=== PATIENT | male | born 1960 | race Caucasian/White ===

== ENCOUNTER 2023-11-24 09:56 | Outpatient (AMB) | payer MEDICARE, MEDICAID, SELFPAY ==
--- NOTE | 2023-11-24 10:06 | MHC.PC.OV ---
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 Allergies No Known Allergies Allergy (Verified 11/24/23 10:17) Medication List - Last Reconciled 11/24/23 by Joao Stanford MD clopidogrel 75 mg PO DAILY dapagliflozin propanediol (Farxiga) 10 mg PO DAILY flash glucose sensor (FreeStyle Dori 2 Sensor kit) As directed insulin degludec (Tresiba FlexTouch U-100 insulin) 26 units subcut BID lidocaine 1.8% (ZTlido) 1 patch topical DAILY metoprolol succinate ER 25 mg PO DAILY metoprolol succinate ER 100 mg PO BID omeprazole 40 mg PO DAILY pen needle, diabetic (NovoFine Plus) As directed rosuvastatin 40 mg PO DAILY sacubitril-valsartan 24-26 mg (Entresto) 1 tab PO BID semaglutide (Rybelsus) 14 mg PO DAILY trazodone 100 mg PO DAILY Tobacco use date assessed: 11/24/23 Fall risk assessment: 1 Fall in past year Last assessed Fall Risk: 11/24/23 Dental Screening Dental Screen Date: 11/24/23 Did you have a dental visit in the last 12 months?: Yes Did you have a dental problem in the last 6 months where you did not have access to dental care?: No Was dental information given to patient?: 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 Pt moved back here in December. Last office visit/CPE: 1 yr ago Acute issue(s): Stroke 1 week ago and has appt w/ Neuro in December. High A1c and had been eating poor diet. PMHx:??Diabetes type 2 Dr Christian. ?hyperlipidemia? CVA 2011, 11/2023 with R side deficits. Carotid athersclerosis., Low Iron anemia. Hiatal Hernia SurgHx: Appendectomy. L ankle ORIF. L Foot surgery and amputation L great toe as well as 3rd & 4th toe. FHx: SocHx: Smoked > 20 pack years. and still [address] a week. 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 Stroke Diabetes 1.5, managed as type 2 Surgical History (Updated 11/24/23 @ 10:26 by Lucy Neville CMA) History of appendectomy Social History (Updated 11/24/23 @ 10:31 by Lucy Neville CMA) Household Members: None Both parents involved: No Caregiver staying overnight: No Housing: Apartment Are you a primary rn managed care to a significant other at home: No Do you presently have visiting nurse or other home services: No 75 years or older and lives alone: No Alcohol intake: current Alcohol intake frequency: a few times a month Alcohol type: other Comment: single malt scotch Patient Tobacco Use Status: Current everyday Tobacco user Cigarette Packs Per Day: 20 e-Cigarette/Vaping Use: Never Used Substance Use Type: Marijuana Special yamilex needs: No service: No Current occupational status: retired Cognitive needs: No Hearing needs: No Vision needs: No Questionnaire PHQ-9 Over the last 2 weeks, how often have you been bothered by any of the following problems? 1. Little interest or pleasure in doing things: not at all 2. Feeling down, depressed, or hopeless: not at all 3. Trouble falling or staying asleep, or sleeping too much: not at all 4. Feeling tired or having little energy: not at all 5. Poor appetite or overeating: not at all 6. Feeling bad about yourself - or that you are a failure or have let yourself or your family down: not at all 7. Trouble concentrating on things, such as reading the newspaper or watching television: not at all 8. Moving or speaking so slowly that other people could have noticed. Or the opposite - being so fidgety or restless that you have been moving around a lot more than usual: not at all 9. Thoughts that you would be better off or of hurting yourself in some way: not at all Total score: 0 Depression Screening Interpretation: Negative Depression Screening Done: Yes 26867 - PHQ-9 Billing: Yes Source: Developed by Drs. Mega Teresa, Berenice Hardin, Rory Hewitt and colleagues, with an educational claudine from [employer]. Thrive Questionnaire Date Thrive assessed: 11/24/23 I am a: Patient What is your living situation today?: I have a steady place to live Within the past 12 months, did the food you bought not last and you didn't have the money to get more?: Never true Within the past 12 months, did you worry whether your food would run out before you got money to buy more?: Never true Do you have trouble paying for medicines?: No Do you have trouble getting transportation to medical appointments?: No Do you have trouble paying your heating and electricity bill?: Yes Do you have trouble taking care of your child, family member or friend?: No Do you have trouble with day-to-day activities such as bathing, preparing meals, shopping, managing finances, etc.?: No Are you currently unemployed and looking for a job?: No Are you interested in more education?: Yes THRIVE Score: 1 BELTRAN-7 AMB Questionnaire BELTRAN-7 Date BELTRAN - 7 assessed: 11/24/23 Feeling nervous, anxious, or on edge: 0 = Not at all Not being able to stop or control worryin = Not at all Worrying too much about different things: 0 = Not at all Trouble relaxin = Not at all Being so restless that it is hard to sit still: 0 = Not at all Becoming easily annoyed or irritable: 0 = Not at all Feeling afraid as if something awful might happen: 0 = Not at all Total BELTRAN-7 score (0-4 normal; 5-9 mild; 10-14 moderate; 15-21 severe): 0 Source: Developed by Drs. Mega Teresa, Berenice Hardin, Rory Hewitt and colleagues, with an educational claudine from [employer]. BELTRAN-7 Assessment Billing BELTRAN-7 Assessment Tool: BELTRAN-7 Assessment 76550 Review of Systems Const Denies chills, Denies fatigue, Denies fever(s), Denies headache(s) and Denies weakness ENT Denies dizziness and Denies headache(s) Card Denies chest pain, Denies lightheadedness, Denies dyspnea and Denies other (Palpitations) Resp Denies cough, Denies dyspnea, Denies wheezing and Denies other ( shortness of breath) Musc Denies numbness and Denies tingling Neuro Denies dizziness, Denies headache(s), Denies numbness, Denies tingling, Denies paresthesias and Denies weakness Psych Denies anxiety and Denies depression Endo Denies fatigue Aller/Immun Denies wheezing Physical exam (Primary Care) Vital Signs: Last Vital Signs Pulse 80 11/24/23 10:08 BP 102/58 L 11/24/23 10:08 Pulse Ox 98 11/24/23 10:08 Oxygen Delivery Method Room Air 11/24/23 10:08 BMI result Body Mass Index 27.0 Tobacco/Smoking Status: Tobacco use Status Tobacco use date assessed 11/24/23 11/24/23 10:35 Patient Tobacco Use Status Current everyday Tobacco 11/24/23 10:35 e-Cigarette/Vaping Use Never Used 11/24/23 10:35 PHQ-9: PHQ-9 Score PHQ-9: Total score 0 11/24/23 10:35 Depression Screening Interpretation: Negative Thrive Assessment: Date of Thrive Assessment Date Thrive assessed 11/24/23 11/24/23 10:35 Const General: no acute distress and well developed Nutritional Appearance: well nourished Orientation/consciousness: patient oriented x3 [facility] Head: Yes normocephalic and Yes atraumatic Eyes General: appearance normal, both eyes and all related structures Pupils: Equal, round and reactive pupils present EOM: EOMs intact bilaterally Resp Effort & Inspection: normal respiratory effort Auscultation: clear to auscultation bilaterally Cardio Rate: regular rate Rhythm: regular rhythm Heart sounds: S1 normal heart sound present, S2 normal heart sound present, no gallops, no murmurs and no rubs Neuro General: patient oriented x3 and gait normal Cranial nerves: Yes Equal, round and reactive pupils present Psych Affect: normal affect Results AMB Hemoglobin A1c AMB Hemoglobin A1c 7.8 % Last Edit by Lucy Neville CMA on 11/24/23 10:48 Assessment and Plan Assessment & Plan (1) Diabetes: Code(s): E11.9 - Type 2 diabetes mellitus without complications Plan: A1c?7.8%?which?is?poor?control.??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 Patient?notes?that?his?morning?blood?sugars?are?low eg 70s. However?blood?sugars?go?up?over?200?for?his?lunch?and?evening?meals. Will?give?him?a?script?for?glipizide?prior?to?his?lunch?and?encouraged?him?to?work?on?diabetic?diet. Otherwise,?Continue?diabetic?medications?as?prescribed Follow-up?with?endocrinology (2) Hypertension: Code(s): I10 - Essential (primary) hypertension Plan: Blood?pressure?is?a?little?on?the?low?side?but?he?has?no?adverse?effects. Continue?current?medications. Recent?CVA Follow-up?with?Neurology?as?recommended (3) Hyperlipidemia: Code(s): E78.5 - Hyperlipidemia, unspecified Plan: Continue?rosuvastatin (4) Smoker: Code(s): F17.200 - Nicotine dependence, unspecified, uncomplicated Plan: Start?nicotine?patches Will?follow (5) Stroke: Code(s): I63.9 - Cerebral infarction, unspecified Plan: History?of?stroke?in?2011?and?a?smaller?stroke?1?week?ago. He?has?an?appointment?with?neurology?in?December Continue?clopidogrel?and?aspirin.??Continue?Entresto?and?metoprolol.??Control?blood?pressure Controlled?blood?sugar Continue?rosuvastatin (6) Carotid atherosclerosis: Code(s): I65.29 - Occlusion and stenosis of unspecified carotid artery Plan: Continue?rosuvastatin Follow-up?with?Neurology May?need?a?referral?to?vascular Orders: Orders AMB Hemoglobin A1c Today Z13.9 - Encounter for screening, unspecified Complete Blood Count Auto Diff Today Z00.00 - Encounter for general adult medical examination without abnormal findings Lipid Panel Today Z00.00 - Encounter for general adult medical examination without abnormal findings Microalbumin, Random (w Creat) Today I10 - Essential (primary) hypertension TSH reflex Free T4 Today Z00.00 - Encounter for general adult medical examination without abnormal findings IRON PROFILE Today D64.9 - Anemia, unspecified Comprehensive [place]. Panel Fast Today Z00.00 - Encounter for general adult medical examination without abnormal findings UA and rflx microscopic Today Z00.00 - Encounter for general adult medical examination without abnormal findings Testosterone, Free/Total Today R79.89 - Other specified abnormal findings of blood chemistry Medications: New nicotine (Nicoderm CQ) 1 patch transdermal DAILY 28 days 28 ea 2RF insulin degludec (Tresiba FlexTouch U-100 insulin) 26 units subcut DAILY glipizide Take 15 min before lunch 2.5 mg PO DAILY 30 days 30 tabs 1RF Coding Level of Care Code New Pt Level 4 (85748) Diagnoses Diabetes E11.9 Hypertension I10 Hyperlipidemia E78.5 Smoker F17.200 Stroke I63.9 Carotid atherosclerosis I65.29 Additional Codes BELTRAN-7 Assessment Billing - BELTRAN-7 Assessment Tool: BELTRAN-7 Assessment [id number] ([id number])
[2023-11-24 10:08] VITALS: BP 102/58; PULSE 80; O2SAT 98; BMI 27.0
== END 2023-11-24 12:44 | disposition home or self-care (01) ==
PROVIDERS: PCP Family Medicine; Visit Provider Family Medicine
DX: I10 Essential (primary) hypertension (principal); E78.5 Hyperlipidemia, unspecified; F17.210 Nicotine dependence, cigarettes, uncomplicated; E11.9 Type 2 diabetes mellitus without complications; I65.29 Occlusion and stenosis of unspecified carotid artery; Z86.73 Personal history of transient ischemic attack (TIA), and cerebral infarction without residual deficits
CPT/HCPCS: 83036; 99204

== ENCOUNTER 2023-12-08 07:20 | Outpatient (REF) | payer MEDICARE, MEDICAID, SELFPAY ==
[2023-12-08 11:27] LABS: Appearance Urine Clear; Color Urine Yellow; Glucose Urine UA >=1000 mg/dL (Negative); Leukocyte Esterase Urine Negative (Negative); Nitrite Urine Negative (Negative); Specific Gravity - Urine 1.025 (1.005-1.025); UMIC TRIGGER UA YES; Urine Blood Negative (Negative); Urine Ketones Negative (Negative); Urine Protein Negative (Neg-Trace)
[2023-12-08 11:46] LABS: MANUAL DIFF FLAG NO
[2023-12-08 11:48] LABS: Bacteria Urine None Seen (None Seen); Hyaline Casts Urine 0-2 /LPF (0-2); RBC Urine 0-2 /HPF (0-2); Squamous Epithelial Cell Urine 0-2 /HPF (0-2); WBC Urine 0-5 /HPF (0-5)
[2023-12-08 11:50] LABS: Basophils Absolute Auto 0.1 X10*3/uL (0.0-0.2); Eosinophils Absolute Auto 0.8 X10*3/uL (0.0-0.4); Eosinophils Percent Auto 8.2 % (0-4); Hematocrit 44.7 % (42.0-52.0); Hemoglobin 14.5 g/dl (14.0-18.0); Imm Gran Abs Auto 0.04 X10*3/uL (0.00-0.03); Imm Gran Pct Auto 0.4 % (0.0-0.4); Lymphocytes Absolute Auto 2.5 X10*3/uL (1.2-4.9); Lymphocytes Percent Auto 25.6 % (20-40); Mean Corpuscular HGB Conc 32.4 g/dl (31.0-36.0); Mean Corpuscular Hemoglobin 27.4 pg (27.0-33.0); Mean Corpuscular Volume 84.5 fL (80.0-98.0); Mean Platelet Volume 11.1 fL (9.4-12.4); Monocytes Percent Auto 10.1 % (2-11); Neutrophils Absolute Auto 5.3 x10*3/uL (2.0-8.3); Neutrophils Percent Auto 54.7 % (45-73); Platelet Count 411 X10*3/uL (160-400); Red Blood Count 5.29 X10*6/uL (4.60-5.80); Red Cell Distribution Width 15.3 % (11.0-16.0); White Blood Count 9.8 X10*3/uL (4.8-10.8)
[2023-12-08 12:35] LABS: Creatinine Urine 62.79 mg/dL; Microalbum/Creatinine Ratio Ur 28.6 ug/mg cr (<30)
[2023-12-08 12:48] LABS: Alanine Aminotransferase 34 U/L (0-40); Alkaline Phosphatase 58 U/L (39-117); Anion Gap 13 (12-20); Aspartate Amino Transferase 27 U/L (5-37); Bilirubin Total 0.2 mg/dL (0.0-1.0); Blood Urea Nitrogen 24 mg/dL (9-16); Calcium 9.6 mg/dL (8.4-10.2); Carbon Dioxide 25 mmol/L (22-29); Chloride 109 mmol/L (96-108); Cholesterol 124 mg/dL (<200); Estimated Glomerular Filt Rate 55; Glucose Fasting 111 mg/dL (60-99); HDL Cholesterol 33 mg/dL (>40); Iron 49 mcg/dL (45-160); LDL Cholesterol Calculated 57 mg/dL (<100); Percent Iron Saturation 23 % (15-50); Potassium 4.1 mmol/L (3.3-5.1); Sodium 143 mmol/L (135-145); Total Iron Binding Capacity 210 mcg/dL (228-428); Total Protein 7.1 g/dL (6.5-8.0); Triglycerides 171 mg/dL (<150); Unsaturated Iron Binding 161 ug/dL
[2023-12-08 13:07] LABS: TSH reflex Free T4 1.21 uIU/mL (0.32-4.0)
[2023-12-13 21:14] LABS: Testosterone, Free 74.7 pg/mL (35.0-155.0); Testosterone, Total 593 ng/dL (250-1100)
== END 2023-12-08 07:21 | disposition home or self-care (01) ==
LOC: HO.WFDLDS 07:20
PROVIDERS: Visit Provider Family Medicine
DX: Z00.00 Encounter for general adult medical examination without abnormal findings (principal); I10 Essential (primary) hypertension; D64.9 Anemia, unspecified; R79.89 Other specified abnormal findings of blood chemistry
CPT/HCPCS: 36415; 80053; 80061; 81001; 82043; 82570; 83540; 84402; 84403; 84443; 85025

== ENCOUNTER 2024-02-07 07:51 | Outpatient (AMB) | payer MEDICARE, MEDICAID, SELFPAY ==
--- NOTE | 2024-02-07 08:00 | A.OFFPC_ITS ---
Vital Signs 02/07/24 08:09 Height 5 ft 9.75 in Weight 187 lb BMI 27.0 BP 124/58 L Blood Pressure Location Lt brachial Position Sitting Respiration 16 Pulse 68 Pulse Source Pulse Oximeter Temp 97.5 F Temp Source Oral Pulse Oximetry (%) 99 Oxygen Delivery Method Room Air Intake Visit Reasons: CPE with F/U labs and health maint. Intake Note: patient here for CPE with F/u labs and health maintnance. 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 Allergies No Known Allergies Allergy (Verified 02/07/24 08:19) Medication List - Last Reconciled 02/07/24 by Rakesh Davies CNP clopidogrel 75 mg PO DAILY 90 days dapagliflozin propanediol (Farxiga) 10 mg PO DAILY 90 days flash glucose sensor (FreeStyle Dori 2 Sensor kit) As directed glipizide 2.5 mg (1/2 x 5 mg) PO DAILY 30 days insulin degludec (Tresiba FlexTouch U-100 insulin) 26 units subcut DAILY lidocaine 1.8% (ZTlido) 1 patch topical DAILY 30 days metoprolol succinate ER 25 mg PO DAILY 90 days metoprolol succinate ER 100 mg PO BID nicotine (Nicoderm CQ) 1 patch transdermal DAILY 28 days omeprazole 40 mg PO DAILY 90 days pen needle, diabetic (NovoFine Plus) As directed rosuvastatin 40 mg PO DAILY 90 days sacubitril-valsartan 24-26 mg (Entresto) 1 tab PO BID 90 days semaglutide (Rybelsus) 14 mg PO DAILY 90 days tizanidine 4 mg PO BEDTIME PRN 30 days trazodone 100 mg PO DAILY 30 days Tobacco use date assessed: 02/07/24 Fall risk assessment: No Falls in past year Dental Screening Dental Screen Date: 02/07/24 Did you have a dental visit in the last 12 months?: Yes Did you have a dental problem in the last 6 months where you did not have access to dental care?: No Was dental information given to patient?: Patient has dentist HPI HPI Comments History of Present Illness Details 63-year-old male presents for an extende d physical exam He has past medical history significant for ?Diabetes type 2, hyperlipidemia, CVA 2011, 11/2023 with R side deficits, carotid atherosclerosis, low Iron anemia, hiatal hernia, hypertension, insomnia and GERD He notes that he has been using nicotine patch occasionally. He continues to smoke a pack of cigarette daily. He admits to taking his other medications as prescribed without adverse reactions He notes that he has been eating healthy and sleeping well. He admits to eating significant amount of meat, cheese, and consuming whole milk. He has not been exercising but plan to sign up at the gym to start working out He offers no complaints and denies acute symptoms at this time He notes that his last eye exam was with Dr. Mitchell in August 2023: No retinopathy He notes that her last podiatry visit was in November 2023 He states that his last endocrinology visit was in December 2023. He as a follow visit in March He notes that his last colonoscopy was 2 years ago, in [place]: no polyps or malignancy He has not been vaccinated for shingles or pneumonia Smoke a pack of cigarettes daily, drinks alcohol occasionally, no recreational drug use He followed by Dr. Mitchell, Ophthalmology, Dr. Meredith, podiatry, and Dr. 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 Pacemaker Stroke Diabetes 1.5, managed as type 2 Surgical History (Updated 11/24/23 @ 10:26 by Lucy Neville CMA) History of appendectomy Social History (Updated 11/25/23 @ 10:51 by Lucy Neville CMA) Household Members: None Both parents involved: No Caregiver staying overnight: No Housing: Apartment Are you a primary managed care liaison to a significant other at home: No Do you presently have visiting nurse or other home services: No 75 years or older and lives alone: No Alcohol intake: current Alcohol intake frequency: a few times a month Alcohol type: other Comment: single malt scotch Patient Tobacco Use Status: Current everyday Tobacco user Cigarette Packs Per Day: 1 Cigarettes Per Day: 20 e-Cigarette/Vaping Use: Never Used Substance Use Type: Marijuana Special yamilex needs: No service: No Current occupational status: retired Cognitive needs: No Hearing needs: No Vision needs: No Questionnaire PHQ-9 Over the last 2 weeks, how often have you been bothered by any of the following problems? 1. Little interest or pleasure in doing things: not at all 2. Feeling down, depressed, or hopeless: not at all 3. Trouble falling or staying asleep, or sleeping too much: not at all 4. Feeling tired or having little energy: not at all 5. Poor appetite or overeating: not at all 6. Feeling bad about yourself - or that you are a failure or have let yourself or your family down: not at all 7. Trouble concentrating on things, such as reading the newspaper or watching television: not at all 8. Moving or speaking so slowly that other people could have noticed. Or the opposite - being so fidgety or restless that you have been moving around a lot more than usual: not at all 9. Thoughts that you would be better off or of hurting yourself in some way: not at all Total score: 0 Depression Screening Interpretation: Negative Depression Screening Done: Yes 39026 - PHQ-9 Billing: Yes Source: Developed by Drs. Mega Teresa, Berenice Hardin, Rory Hewitt and colleagues, with an educational claudine from [employer]. Thrive Questionnaire Date Thrive assessed: 11/24/23 AUDIT C Alcohol Use Questionnaire (AUDIT-C) 1. How often do you have a drink containing alcohol?: Monthly or less (one drink a week) 2. How many drinks containing alcohol do you have on a typical day when you are drinking?: 1 or 2 3. How often do you have six or more drinks on one occasion?: Never Total Score: 1 Score Reviewed/Action Taken: Yes BELTRAN-7 AMB Questionnaire BELTRAN-7 Date BELTRAN - 7 assessed: 11/24/23 Source: Developed by Drs. Mega Teresa, Berenice Hardin, Rory Hewitt and colleagues, with an educational claudine from [employer]. Review of Systems Const Details: Denies chills, Denies fatigue, Denies fever(s), Denies headache(s) and Denies weakness HEENT Denies change in vision, Denies dizziness, Denies headache(s), Denies hearing loss, Denies nasal congestion, Denies sinus pain, Denies sinus pressure and Denies sore throat Card Denies chest pain, Denies lightheadedness, Denies dyspnea and Denies other (palpitations) Resp Denies cough, Denies dyspnea and Denies wheezing GI Denies abdominal pain, Denies melena, Denies hematochezia, Denies change in bowel habits, Denies dyspepsia and Denies nausea Denies hematuria and Denies dysuria Musc Denies abnormal gait, Denies myalgias, Denies arthralgias, Denies numbness and Denies tingling Skin/Breast Denies rash, Denies unusual bruising and Denies wounds Neuro Denies abnormal gait, Denies dizziness, Denies headache(s), Denies memory loss, Denies numbness, Denies Sensory deficit (Neuro), Denies tingling and Denies weakness Psych Denies anxiety, Denies depression and Denies memory loss Endo Denies cold intolerance, Denies fatigue, Denies heat intolerance, Denies polydipsia and Denies polyuria Rede/Lymph Denies easy bleeding and Denies easy bruising Aller/Immun Denies wheezing Physical exam (Primary Care) Vital Signs: Last Vital Signs Temp 97.5 F 02/07/24 08:09 Pulse 68 02/07/24 08:09 Resp 16 02/07/24 08:09 BP 124/58 L 02/07/24 08:09 Pulse Ox 99 02/07/24 08:09 Oxygen Delivery Method Room Air 02/07/24 08:09 BMI result Body Mass Index 27.0 Tobacco/Smoking Status: Tobacco use Status Tobacco use date assessed 02/07/24 02/07/24 08:07 Patient Tobacco Use Status Current everyday Tobacco 02/07/24 08:01 e-Cigarette/Vaping Use Never Used 02/07/24 08:01 PHQ-9: PHQ-9 Score PHQ-9: Total score 0 02/07/24 14:00 Depression Screening Interpretation: Negative Thrive Assessment: Date of Thrive Assessment Date Thrive assessed 11/24/23 02/07/24 08:01 Const Other: General: no acute distress, well developed, alert and awake Nutritional Appearance: well nourished Orientation/consciousness: patient oriented x3 HENMT Head: Yes normocephalic and Yes atraumatic Ears: hearing grossly normal bilaterally and TM's normal bilaterally General nose exam: Normal external nose present and Normal nares present Mouth: Normal oral and palatal mucosa present and moist mucous membranes Teeth and gingiva: dentition normal Throat: Yes oropharynx normal Eyes Pupils: Equal, round and reactive pupils present and Pupil accommodation reflex normal EOM: EOMs intact bilaterally Neck Neck: Yes normal visual inspection, Yes no lymphadenopathy and Yes trachea midline Thyroid: Thyroid normal Carotids: no bruits Lymphatic: no lymphadenopathy noted Chest Chest palpation & inspection: normal inspection of the chest Resp Effort & Inspection: normal respiratory effort Auscultation: clear to auscultation bilaterally Cardio Rate: regular rate Rhythm: regular rhythm Heart sounds: S1 normal heart sound present, S2 normal heart sound present, no gallops, no murmurs and no rubs Bruits: no abdominal aortic bruits and no carotid bruits GI Palpation (GI): No Abdominal aortic bruit present, Soft to palpation, nontender, No hepatosplenomegaly present and No Rebound tenderness present Auscultation: normal bowel sounds General: Yes no CVA tenderness Back/Spine/Pelvis Back: no CVA tenderness Cervical Spine: cervical ROM normal and No Cervical spine tenderness Thoracic/Lumbar Spine: thoraco-lumbar ROM normal, No pain with thoraco-lumbar ROM, No thoracic spinal tenderness and No lumbar spinal tenderness Skin General: warm and dry. Normal skin color. Normal skin turgor Lesions: no lesions Rashes: no rashes Trauma: no lacerations or abrasions Wounds: no wounds Nails: normal Neuro General: patient oriented x3, gait normal and CN's II-XI intact bilaterally Cranial nerves: Yes Equal, round and reactive pupils present Cognition (Neuro): normal cognition Gait exam (Neuro): Normal gait present Motor exam (neuro): 5/5 motor strength present throughout Sensory Exam: No Sensory deficit (Neuro) Deep tendon reflexes (DTR's): Right patellar reflex intensity grade: 2+ and Left patellar reflex intensity grade: 2+ Extrem General: Yes normal to inspection, No edema and No calf tenderness Psych Appearance: grossly normal Affect: normal affect Attitude: cooperative Thought process: Normal thought process present Assessment and Plan Assessment & Plan (1) Normal physical examination, routine: Code(s): Z00.00 - Encounter for general adult medical examination without abnormal findings Plan: No significant physical restrictions or limitations noted Continue current treatment regimen Healthy diet and routine exercise encouraged Continue follow-up with specialists as planned Follow-up with PCP in 1 month for diabetes, hypertension, hyperlipidemia, and anemia Return sooner with symptoms or concerns Verbalized understanding and agreed with treatment plan (2) Hypertension: Code(s): I10 - Essential (primary) hypertension Plan: Blood pressure is 124/58, within goal of less than 130/80 Continue current treatment regimen Low-sodium diet encouraged Follow-up with PCP in a month Verbalized understanding and agreed with the treatment plan (3) Hyperlipidemia: Code(s): E78.5 - Hyperlipidemia, unspecified Plan: Recent lipid panel level is unremarkable except for elevated triglycerides and low HDL levels, 171 and 33 respectively He has been consuming significant amount of meat and cheese, and drinking whole milk Advised to limit foods high in saturated fat and avoid foods high in trans fat Routine exercise encouraged Continue to take rosuvastatin as prescribed Will recheck lipid panel. Advised to fast for 10-12 hours, may drink water only, and get blood work done a few days before his next visit Follow-up in 1 month Verbalized understanding and agreed with the treatment plan (4) Diabetes: Code(s): E11.9 - Type 2 diabetes mellitus without complications Plan: Recent A1c verbal 2 months ago with 7.8%, above goal of less than 7.0% Continue current treatment regimen ADA diet and routine exercise encouraged Follow-up with PCP in 1 month Verbalized understanding and agreed with the treatment plan (5) Anemia: Code(s): D64.9 - Anemia, unspecified Plan: Normal CBC levels except for slightly elevated platelets, 411 and low TIBC, 210 Follow-up with PCP (6) Insomnia: Code(s): G47.00 - Insomnia, unspecified Plan: He has been sleeping well Continue to take trazodone as prescribed (7) Amputated toe of left foot: Code(s): S98.132A - Complete traumatic amputation of one left lesser toe, initial encounter Plan: History of amputated 1st, 2nd, and 4th left toes secondary to diabetes Followed by Podiatry (8) Smoker: Code(s): F17.200 - Nicotine dependence, unspecified, uncomplicated Plan: He smokes a pack of cigarettes daily He is currently on nicotine patch which he admits to using occasionally Advised to limit or avoid smoking while on nicotine patch Instructed on the health risks and complications of cigarette smoking Smoking cessation encouraged Verbalized understanding and agreed with the plan (9) Vaccine counseling: Code(s): Z71.85 - Encounter for immunization safety counseling Plan: He has not been vaccinated for shingles or pneumonia Instructed on the importance of vaccination and encouraged to get vaccinated for shingles and pneumonia. He may request the vaccines at his local pharmacy Verbalized understanding and agreed with the treatment plan Orders: Orders Lipid Panel 1 Month E78.5 - Hyperlipidemia, unspecified Coding Level of Care Code Est Pt Level 4 (22850) Est Pt Prev Care >65y(86171) Diagnoses Normal physical examination, routine Z00.00 Hypertension I10 Hyperlipidemia E78.5 Diabetes E11.9 Anemia D64.9 Insomnia G47.00 Amputated toe of left foot S98.132A Smoker F17.200 Vaccine counseling Z71.85
[2024-02-07 08:09] VITALS: BP 124/58; PULSE 68; RESP 16; TEMP 36.4; O2SAT 99; BMI 27.0
== END 2024-02-07 08:50 | disposition home or self-care (01) ==
PROVIDERS: PCP Family Medicine; Visit Provider Nurse Practitioner Family
DX: Z00.00 Encounter for general adult medical examination without abnormal findings (principal); I10 Essential (primary) hypertension; E78.5 Hyperlipidemia, unspecified; E11.9 Type 2 diabetes mellitus without complications; D64.9 Anemia, unspecified; G47.00 Insomnia, unspecified; F17.200 Nicotine dependence, unspecified, uncomplicated
CPT/HCPCS: 99397

== ENCOUNTER 2024-03-14 08:35 | Outpatient (REF) | payer MEDICARE, MEDICAID, SELFPAY ==
[2024-03-14 11:55] LABS: Cholesterol 121 mg/dL (<200); HDL Cholesterol 34 mg/dL (>40); LDL Cholesterol Calculated 70 mg/dL (<100); Triglycerides 85 mg/dL (<150)
== END 2024-03-14 08:36 | disposition home or self-care (01) ==
LOC: HO.WFDLDS 08:35
PROVIDERS: Visit Provider Nurse Practitioner Family
DX: E78.5 Hyperlipidemia, unspecified (principal)
CPT/HCPCS: 36415; 80061

== ENCOUNTER 2024-03-17 14:44 | Outpatient (AMB) | payer MEDICARE, MEDICAID, SELFPAY ==
--- NOTE | 2024-03-17 14:57 | MHC.PC.OV ---
Vital Signs 03/17/24 15:02 Height 5 ft 9.75 in Weight 191 lb 8 oz BMI 27.7 BP 108/60 Blood Pressure Location Rt brachial Position Sitting Respiration 16 Pulse 83 Pulse Source Pulse Oximeter Temp 97.7 F Temp Source Oral Pulse Oximetry (%) 97 Oxygen Delivery Method Room Air Intake Visit Reasons: 1 mos DM, HLD, HTN, anemia Intake Note: patient here for 1 month follow up on DM,HLD,HTN and anemia. Watch Dial Maker Required: No Allergies No Known Allergies Allergy (Verified 03/17/24 14:59) Tobacco use date assessed: 02/07/24 Fall risk assessment: No Falls in past year Last assessed Fall Risk: 03/17/24 Dental Screening Dental Screen Date: 02/07/24 HPI 1 mos DM, HLD, HTN, anemia HPI Details 63 y/o male presents to f/u diabetes, HLD, HTN, anemia. Last A1c in November 7.8%. A1c today 03/17/24 is 7.1%. He is on Farxiga, glipizide, Tresiba. He states he is also on metformin. Blood pressure today 108/60, 83p. He is on metoprolol, Entresto b.i.d. Lipid panel drawn 03/14/24. Triglycerides 85. TC 121. LDL 70. HDL low at 34. He is on rosuvastatin 40mg daily. No recent CBC. Has questions about his testosterone levels - reports some ED. HPI Comments History of Present Illness Details Documentation assistance for Joao Satnford MD, was provided by Maximiliano Del Castillo, Cosmetology Instructor on 03/17/2024 at 3:43 PM EST. I, Dr. Stanford, have read, observed, and verified documentation. 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 Pacemaker Stroke Diabetes 1.5, managed as type 2 Surgical History (Updated 11/24/23 @ 10:26 by Lucy Neville CMA) History of appendectomy Social History (Updated 11/25/23 @ 10:51 by Lucy Neville CMA) Household Members: None Both parents involved: No Caregiver staying overnight: No Housing: Apartment Are you a primary career representative to a significant other at home: No Do you presently have visiting nurse or other home services: No 75 years or older and lives alone: No Alcohol intake: current Alcohol intake frequency: a few times a month Alcohol type: other Comment: single malt scotch Patient Tobacco Use Status: Current everyday Tobacco user Cigarette Packs Per Day: 1 Cigarettes Per Day: 20 e-Cigarette/Vaping Use: Never Used Substance Use Type: Marijuana Special yamilex needs: No service: No Current occupational status: retired Cognitive needs: No Hearing needs: No Vision needs: No Questionnaire Thrive Questionnaire Date Thrive assessed: 11/24/23 BELTRAN-7 AMB Questionnaire BELTRAN-7 Date BELTRAN - 7 assessed: 11/24/23 Source: Developed by Drs. Mega Teresa, Berenice Hardin, Rory Hewitt and colleagues, with an educational claudine from [employer]. Review of Systems Const Denies chills, Denies fatigue, Denies fever(s), Denies headache(s) and Denies weakness ENT Denies dizziness and Denies headache(s) Card Denies dyspnea Resp Denies cough, Denies dyspnea, Denies wheezing and Denies other (shortness of breath) Musc Denies numbness and Denies tingling Neuro Denies dizziness, Denies headache(s), Denies numbness, Denies tingling and Denies weakness Psych Denies anxiety and Denies depression Endo Denies fatigue Aller/Immun Denies wheezing Physical exam (Primary Care) Vital Signs: Last Vital Signs Temp 97.7 F 03/17/24 15:02 Pulse 83 03/17/24 15:02 Resp 16 03/17/24 15:02 BP 108/60 03/17/24 15:02 Pulse Ox 97 03/17/24 15:02 Oxygen Delivery Method Room Air 03/17/24 15:02 BMI result Body Mass Index 27.7 Tobacco/Smoking Status: Tobacco use Status Tobacco use date assessed 02/07/24 03/17/24 14:59 Patient Tobacco Use Status Current everyday Tobacco 03/17/24 14:59 e-Cigarette/Vaping Use Never Used 03/17/24 14:59 Thrive Assessment: Date of Thrive Assessment Date Thrive assessed 11/24/23 03/17/24 14:59 Const General: well developed; No acute distress Nutritional Appearance: well nourished Orientation/consciousness: patient oriented x3 HENMT Head: Yes normocephalic and Yes atraumatic Eyes General: appearance normal, both eyes and all related structures Pupils: Equal, round and reactive pupils present EOM: EOMs intact bilaterally Resp Effort & Inspection: normal respiratory effort Auscultation: clear to auscultation bilaterally Cardio Rate: regular rate Rhythm: regular rhythm Heart sounds: S1 normal heart sound present, S2 normal heart sound present, no gallops, no murmurs and no rubs Neuro General: patient oriented x3 and gait normal Cranial nerves: Yes Equal, round and reactive pupils present Psych Affect: normal affect Assessment and Plan Assessment & Plan (1) Diabetes: Code(s): E11.9 - Type 2 diabetes mellitus without complications Plan: A1c?much?improved?and?now?at?7.1%. Goal?is?less?than?7.0% Continue?working?at?diabetic?diet Continue?current?medication?regimen No?medication?changes?made?today (2) Hypertension: Code(s): I10 - Essential (primary) hypertension Plan: Blood?pressure?is?controlled.??Goal?is?less?than?130/80 Continue?current?medications (3) Hyperlipidemia: Code(s): E78.5 - Hyperlipidemia, unspecified Plan: Lipids?much?improved HDL?is?still?low He?says?he?is?planning?to?start?an?exercise?regimen?and?I?encouraged?this (4) Erectile dysfunction: Code(s): N52.9 - Male erectile dysfunction, unspecified Plan: Patient?would?like?to?try?sildenafil History?of?stroke?but?greater?than?1?year?ago Risks/benefits?discussed Medications: New sildenafil administer 30 minutes to 4 hours before activity 25 mg PO DAILY 30 days PRN 6 tabs 2RF sexual activity Coding Level of Care Code Est Pt Level 4 (87829) Diagnoses Diabetes E11.9 Hypertension I10 Hyperlipidemia E78.5 Erectile dysfunction N52.9
[2024-03-17 15:02] VITALS: BP 108/60; PULSE 83; RESP 16; TEMP 36.5; O2SAT 97; BMI 27.7
== END 2024-03-17 16:09 | disposition home or self-care (01) ==
PROVIDERS: PCP Family Medicine; Visit Provider Family Medicine
DX: E11.9 Type 2 diabetes mellitus without complications (principal); I10 Essential (primary) hypertension; E78.5 Hyperlipidemia, unspecified; N52.9 Male erectile dysfunction, unspecified
CPT/HCPCS: 99214

== ENCOUNTER 2024-06-19 10:43 | Outpatient (AMB) | payer MEDICARE, MEDICAID, SELFPAY ==
--- NOTE | 2024-06-19 10:54 | MHC.PC.OV ---
Vital Signs 06/19/24 11:02 Height 5 ft 9.75 in Weight 187 lb 6 oz BMI 27.1 BP 90/50 L Blood Pressure Location Lt brachial Position Sitting Respiration 12 Pulse 52 Pulse Source Pulse Oximeter Pulse Oximetry (%) 98 Oxygen Delivery Method Room Air Intake Visit Reasons: f/u diabetes, labs - see comments Intake Note: DM f/u pt will get labs done next time per patient he forgot Allergies No Known Allergies Allergy (Verified 06/19/24 11:00) Medication List - Last Reconciled 06/19/24 by Jooa Stanford MD clopidogrel 75 mg PO DAILY 90 days dapagliflozin propanediol (Farxiga) 10 mg PO DAILY 90 days flash glucose sensor (FreeStyle Dori 2 Sensor kit) As directed glipizide ER 5 mg PO QAM 90 days insulin degludec (Tresiba FlexTouch U-100 insulin) 26 units subcut DAILY lidocaine 1.8% (ZTlido) 1 patch topical DAILY 30 days metformin 1,000 mg PO BID metoprolol succinate ER 100 mg PO BID metoprolol succinate ER 12.5 mg (1/2 x 25 mg) PO DAILY 90 days nicotine (Nicoderm CQ) 1 patch transdermal DAILY 28 days omeprazole 40 mg PO DAILY 90 days pen needle, diabetic (NovoFine Plus) As directed rosuvastatin 40 mg PO DAILY 90 days sacubitril-valsartan 24-26 mg (Entresto) 1 tab PO BID 90 days semaglutide (Rybelsus) 14 mg PO DAILY 90 days sildenafil 25 mg PO DAILY PRN 30 days tizanidine 4 mg PO BEDTIME PRN 30 days trazodone 100 mg PO DAILY 30 days Tobacco use date assessed: 02/07/24 Dental Screening Dental Screen Date: 02/07/24 HPI f/u diabetes, labs - see comments HPI Details 63 y/o male presents to f/u diabetes, hypertension. Last A1c 03/17/24 7.1%. A1c today 06/19/24 is 7.3%. Blood pressure today 90/50, 52p. He is on metoprolol 12.5mg, metoprolol 100mg b.i.d, Entresto b.i.d. He states he is unsure if he is taking his metoprolol. Has picked up sildenafil and pt notes it has not been working. 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 Pacemaker Stroke Diabetes 1.5, managed as type 2 Surgical History (Updated 11/24/23 @ 10:26 by Lucy Neville CMA) History of appendectomy Social History (Updated 11/25/23 @ 10:51 by Lucy Neville CMA) Household Members: None Both parents involved: No Caregiver staying overnight: No Housing: Apartment Are you a primary director of primary care to a significant other at home: No Do you presently have visiting nurse or other home services: No 75 years or older and lives alone: No Alcohol intake: current Alcohol intake frequency: a few times a month Alcohol type: other Comment: single malt scotch Patient Tobacco Use Status: Current everyday Tobacco user Cigarette Packs Per Day: 1 Cigarettes Per Day: 20 e-Cigarette/Vaping Use: Never Used Substance Use Type: Marijuana Special yamilex needs: No service: No Current occupational status: retired Cognitive needs: No Hearing needs: No Vision needs: No Questionnaire Thrive Questionnaire Date Thrive assessed: 11/24/23 I am a: Patient What is your living situation today?: I choose not to answer this question Within the past 12 months, did the food you bought not last and you didn't have the money to get more?: I choose not to answer this question Within the past 12 months, did you worry whether your food would run out before you got money to buy more?: I choose not to answer this question Do you have trouble paying for medicines?: I choose not to answer this question Do you have trouble getting transportation to medical appointments?: I choose not to answer this question Do you have trouble paying your heating and electricity bill?: I choose not to answer this question Do you have trouble taking care of your child, family member or friend?: I choose not to answer this question Do you have trouble with day-to-day activities such as bathing, preparing meals, shopping, managing finances, etc.?: I choose not to answer this question Are you currently unemployed and looking for a job?: I choose not to answer this question Are you interested in more education?: I choose not to answer this question Please select the resources that you would like help with: None Currently or been in a relationship where the following occur: I choose not to answer THRIVE Score: 0 AUDIT C Alcohol Use Questionnaire (AUDIT-C) 1. How often do you have a drink containing alcohol?: Monthly or less 2. How many drinks containing alcohol do you have on a typical day when you are drinking?: 1 or 2 3. How often do you have six or more drinks on one occasion?: Never Total Score: 1 BELTRAN-7 AMB Questionnaire BELTRAN-7 Date BELTRAN - 7 assessed: 11/24/23 Feeling nervous, anxious, or on edge: 0 = Not at all Not being able to stop or control worryin = Not at all Worrying too much about different things: 0 = Not at all Trouble relaxin = Not at all Being so restless that it is hard to sit still: 0 = Not at all Becoming easily annoyed or irritable: 0 = Not at all Feeling afraid as if something awful might happen: 0 = Not at all Total BELTRAN-7 score (0-4 normal; 5-9 mild; 10-14 moderate; 15-21 severe): 0 Source: Developed by Drs. Mega Teresa, Berenice Hardin, Rory Hewitt and colleagues, with an educational claudine from [employer]. Review of Systems Const Denies chills, Denies fatigue, Denies fever(s), Denies headache(s) and Denies weakness ENT Denies dizziness and Denies headache(s) Card Denies chest pain, Denies lightheadedness, Denies dyspnea and Denies other (Palpitations) Resp Denies cough, Denies dyspnea, Denies wheezing and Denies other ( shortness of breath) Musc Denies numbness and Denies tingling Neuro Denies dizziness, Denies headache(s), Denies numbness, Denies tingling, Denies paresthesias and Denies weakness Psych Denies anxiety and Denies depression Endo Denies fatigue Aller/Immun Denies wheezing Physical exam (Primary Care) Tobacco/Smoking Status: Tobacco use Status Tobacco use date assessed 02/07/24 06/19/24 10:55 Patient Tobacco Use Status Current everyday Tobacco 06/19/24 10:55 e-Cigarette/Vaping Use Never Used 06/19/24 10:55 Thrive Assessment: Date of Thrive Assessment Date Thrive assessed 11/24/23 06/19/24 10:55 Currently or been in a relationship where the following occur: I choose not to answer Const General: no acute distress and well developed Nutritional Appearance: well nourished Orientation/consciousness: patient oriented x3 HENMT Head: Yes normocephalic and Yes atraumatic Eyes General: appearance normal, both eyes and all related structures Pupils: Equal, round and reactive pupils present EOM: EOMs intact bilaterally Resp Effort & Inspection: normal respiratory effort Auscultation: clear to auscultation bilaterally Cardio Rate: regular rate Rhythm: regular rhythm Heart sounds: S1 normal heart sound present, S2 normal heart sound present, no gallops, no murmurs and no rubs Neuro General: patient oriented x3 and gait normal Cranial nerves: Yes Equal, round and reactive pupils present Psych Affect: normal affect Results AMB Hemoglobin A1c AMB Hemoglobin A1c 7.3 % Last Edit by STEFF Michael on 06/19/24 11:10 Coding Level of Care Code Est Pt Level 3 (73357) Diagnoses Diabetes E11.9 Hypertension I10 Erectile dysfunction N52.9 Assessment & Plan Assessment & Plan (1) Diabetes: Code(s): E11.9 - Type 2 diabetes mellitus without complications Category: Medical Plan: A1c?7.3%?is?still?above?goal?and?has?climbed?slightly. He?will?continue?Tresiba,?metformin?and?review?pulses?as?prescribed. Will?increase?glipizide;?changing?from?2.5?mg instant?release?tablet?2?5?mg?extended?release?tablet, daily. (2) Hypertension: Code(s): I10 - Essential (primary) hypertension Category: Medical Plan: Blood?pressure?is?a?little?low.??He?denies?any?fatigue?or?dizziness. Will?decrease?metoprolol?to?12.5?mg?daily Continue Entresto?as?prescribed (3) Erectile dysfunction: Code(s): N52.9 - Male erectile dysfunction, unspecified Category: Medical Plan: Sildenafil?did?not?have?any?affect Referred?to?urology Orders: Orders AMB Hemoglobin A1c Today E11.9 - Type 2 diabetes mellitus without complications Referrals Urology Referral N52.9 - Male erectile dysfunction, unspecified Medications: New glipizide ER 5 mg PO QAM 90 days 90 tabs 2RF Changed From metoprolol succinate ER 25 mg PO DAILY 90 days 90 tabs 3RF To metoprolol succinate ER 12.5 mg (1/2 x 25 mg) PO DAILY 90 days 45 tabs 3RF Discontinued glipizide Take 15 min before lunch Discontinued Reason: Doctor's Order 2.5 mg (1/2 x 5 mg) PO DAILY 90 days 45 tabs 0RF
[2024-06-19 11:02] VITALS: BP 90/50; PULSE 52; RESP 12; O2SAT 98; BMI 27.1
--- OUTSIDE RECORDS SUMMARY | 2024-06-21 14:48 | XMS_ITS | Continuity of Care Document ---
Author Organization [facility] [address] [facility] [address] [place] [address] Phone [phone] Problems Active Problems Provider Date Type 2 diabetes mellitus CHETAN Govea Onse t: 09/17/2023 Essential hypertension CHETAN Govea Onset: 09/17/2023 Hyperlipidemia CHETAN Govea Onset: 2023 Gastroesophageal reflux disease CHETAN Govea Onset: 09/17/2023 Social History Type Date Description Comments Sex Unknown Lives With Alone ETOH Use Rarely consumes alcohol Tobacco Use Start: Unknown Heavy tobacco sm oker (more than 10 cigarettes/day) pack a day Allergies and adverse reactions Description No Known Drug Allergies Medications Active Medications SIG Qnty Indications Order ing Provider Date Humalog Tzmrqqx559Blrv/ML Solution Pen-Inject inject 8 units subcutaneously before meals 30ml E11.21 Mona Muhammad M.D. 01/05/2024 Freestyle Dori 2/[place]/Flash Glucose Monitoring Sadsac5Fklhgh Device use as directed with sensors 1units E11Agatha9 Mona Muhammad M.D. 09/20/2023 Freestyle Dori 2/Sensor/Flash Glucose Monitoring Pmynum4Oxnkeh Misc 1 sensor to skin every fourteen days as directed dx: e11.9 3units E11Nakia Muhammad M.D. 09/20/2023 Ztlido1.8% Patches 1 patch daily Unknown Aspirin 8181mg Tablets DR 1 by mouth every day Unknown 00/00/0 000 Ketoconazole2% Cream Unknown Accu-Chek GuideStrips Unknown Jncnuob10cq Tablets Take 1 tablet by mouth daily 90tabs Mona Muhammad M.D. Tresiba Tgdjromet472Wdad/ML Solution Pen-Inject 30 units daily 30ml E11.21 Mona Muhammad M.D. Dpnhscvqed52es Capsules DR Take 1 capsule by mouth daily 90caps Mona Muhammad M.D. Metformin BPB2594cf Tablets Take 1 tablet by mouth 2 times daily 180tabs Mona Muhammad M.D. Accu-Chek GuideStrips Unknown Tizanidine HCL4mg Tablets Take 1 Tablet By Mouth Three Times Daily 270tabs Mona Muhammad M.D. Rosuvastatin Rstidkk77lc Tablets Take 1 tablet by mouth daily Unknown Losartan Zdhoyxvfx04mc Tablets Take 1 tablet by mouth daily Unknown Trazodone ULN851vb Tablets Take 1 tablet by mouth at bedtime as needed Unknown Ggzijhhq42uw Tablets Take 1 Tablet By Mouth Every Day Unknown History Medications Novolog Rqjjgaq224Yfhm/ML Solution Pen-Inject inject 8 units every day before dinner 30ml E11.21 Mona Muhammad M.D. 12/30/2023 - 01/05/2024 Vital Signs Date Vital Result Comment 04/20/2024 11:44am BP Systolic 110 mmHg BP Diastolic 78 mmHg Heart Rate 98 /min Height 59 inches 4'11 Weight 189.25 lb BMI (Body Mass Index) 38.2 kg/m2 Results Test Acquired Date Facility Test Result H/L Range N [place]te Laboratory test finding 04/20/2024 Inhouse Glucose Fingerstick 151 Hemoglobin A1c 7.1 % Laboratory test finding 12/29/2023 Inhouse Glucose Fingerstick 133 Hemoglobin A1c 8.2 Laboratory test finding 11/11/2023 [facility] Renin Activity, Plasma 1.916 ng/mL/hr 0.167-5.3 80 1 Aldosterone LCM S, Serum 5.7 ng/dL 0.0-30.0 Laboratory test finding 10/28/2023 Inhouse Glucose Fingerstick 94 Comp. Metabolic Panel (14) 10/20/2023 [facility] Glucose 115 mg/dL High 70-99 BUN 22 mg/dL 8-27 Creatinine 1.18 mg/dL 0.76-1.27 eGFR 69 mL/min/1.73 >59 BUN/Creatinine Ratio 19 10-24 Sodium 137 mmol/L 134-144 Potassium 5.3 mmol/L High 3.5-5.2 Chloride 100 mmol/L 96-106 Carbon Dioxide, Total 22 mmol/L 20-29 Calcium 9.6 mg/dL 8.6-10.2 Protein, Total 6.5 g/dL 6.0-8.5 Albumin 4.1 g/dL 3.9-4.9 Globulin, Total 2.4 g/dL 1.5-4.5 A/G Ratio 1.7 1.2-2.2 Bilirubin, Total <0.2 mg/dL 0.0- 1.2 Alkaline Phosphatase 62 IU/L 44-121 Ast (Sgot) 19 IU/L 0-40 Alt (SGPT) 28 IU/L 0-44 Comp. Metabolic Panel (14) 09/28/2023 [facility] Glucose 67 mg/dL Low 70-99 BUN 21 mg/dL 8-27 Creatinine 1.02 mg/dL 0.76-1.27 eGFR 82 mL/min/1.73 >59 BUN/Creatinine Ratio 21 10-24 Sodium 141 mmol/L 134-144 Potassium 5.8 mmol/L High 3.5-5.2 Chloride 102 mmol/L 96-106 Carbon Dioxide, Total 22 mmol/L 20-29 Calcium 10.0 mg/dL 8.6-10.2 Protein, Total 6.9 g/dL 6.0-8.5 Albumin 4.4 g/dL 3.9-4.9 Globulin, Total 2.5 g/dL 1.5-4.5 A/G Ratio 1.8 1.2-2.2 Bilirubin, Total <0.2 mg/dL 0.0- 1.2 Alkaline Phosphatase 66 IU/L 44-121 Ast (Sgot) 32 IU/L 0-40 Alt (SGPT) 75 IU/L High 0-44 Lipid Panel 09/28/2023 [facility] Cholesterol, Total 113 mg/dL 100-199 Triglycerides 99 mg/dL 0-149 HDL Cholesterol 36 mg/dL Low >39 VLDL Cholestero l Clark 19 mg/dL 5-40 LDL Chol Calc (Nih) 58 mg/dL 0-99 Comment: TNP CBC With Differential/Pl atelet 09/28/2023 [facility] WBC 11.7 x10E3/uL High 3.4-10.8 RBC 5.08 x10E6/uL 4.14-5.80 Hemoglobin 13.8 g/dL 13.0-17.7 Hematocrit 43.7 % 37.5-51.0 MCV 86 fL 79-97 MCH 27.2 pg 26.6-33.0 MCHC 31.6 g/dL 31.5-35.7 RDW 13.6 % 11.6-15.4 Platelets 398 x10E3/uL 150-450 Neutrophils 56 % Not Estab. Lymphs 28 % Not Estab. Monocytes 9 % Not Estab. Eos 6 % Not Estab. Basos 1 % Not Estab. Immature Cells TNP Neutrophils (Absolute) 6.5 x10E3/uL 1.4-7.0 Lymphs (Absolute) 3.2 x10E3/uL High 0.7-3.1 Monocytes(Absol [place] ) 1.1 x10E3/uL High 0.1-0.9 Eos (Absolute) 0.7 x10E3/uL High 0.0-0.4 Baso (Absolute) 0.1 x10E3/uL 0.0-0.2 Immature Granulocytes 0 % Not Estab. Immature Grans (Abs) 0.0 x10E3/uL 0.0-0.1 NRBC TNP Hematology Comments: TNP Laboratory test finding 09/28/2023 [facility] Vitamin B12 966 pg/mL 232-1245 Albumin/Creatin ine Ratio, Random Urine 09/28/2023 [facility] Creatinine, Urine 66.4 mg/dL Not Estab. Albumin, Urine 44.6 ug/mL Not Estab. Alb/Creat Ratio 67 mg/gcreat High 0-29 2 Laboratory test finding 09/17/2023 Inhouse Glucose Fingerstick 223 Hemoglobin A1c 8.2% 1 Test(s) 818007-Ezmln terone was developed and its performance characteristics determined by [facility]. It has not been cleared or approved by the Food and Drug Administration. Test(s) 030093-Krirz Activity, Plasma was developed and its performance characteristics determined by [facility]. It has not been cleared or approved by the Food and Drug Administration. 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 Z79.4 group home (current) use of insulin Assessments Date Code Description Provider 04/20/2024 E11.21 Type 2 diabetes mellitus with diabetic nephropathy CHETAN Govea 04/20/2024 Z79.4 intermediate teacher (current) use of i nsulin CHETAN Govea Plan of Treatment Future Appointment(s):* 08/16/2024 11:00 am - CHETAN Govea at Main Office 04/20/2024 - CHETAN Govea* E11.21 Type 2 diabetes mellitus with diabetic nephropathy * 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
== END 2024-06-19 11:22 | disposition home or self-care (01) ==
PROVIDERS: PCP Family Medicine; Visit Provider Family Medicine
DX: E11.9 Type 2 diabetes mellitus without complications (principal); I10 Essential (primary) hypertension; N52.9 Male erectile dysfunction, unspecified

== ENCOUNTER → 2024-06-19 10:43 | Outpatient (BNVA) | payer MEDICARE, MEDICAID, SELFPAY | PROVIDERS: PCP Family Medicine; Visit Provider Family Medicine | DX: E11.9 Type 2 diabetes mellitus without complications (principal); I10 Essential (primary) hypertension; N52.9 Male erectile dysfunction, unspecified | CPT/HCPCS: 83036; 99212 ==

== ENCOUNTER 2024-08-09 10:45 | Outpatient (AMB) | payer MEDICARE, MEDICAID, SELFPAY ==
--- NOTE | 2024-08-09 10:50 | A.OFFVIS_ITS ---
Intake Visit Reasons: erectile dysfunction Intake Note: New patient Presents for Erectile Dysfunction/Low testosterone Any Urology Medication: PCP Prescribes Sildenafil (Patient states that it is not as effective) Antibiotic Allergies: None Blood Thinners: Clopidogrel (Plavix) Alum Plant Operator Required: No Accompanied by: Self / Same As Patient Allergies No Known Allergies Allergy (Verified 08/09/24 11:05) Medication List - Last Reconciled 08/09/24 by SAMANTHA Yepez- clopidogrel 75 mg PO DAILY 90 days dapagliflozin propanediol (Farxiga) 10 mg PO DAILY 90 days flash glucose sensor (FreeStyle Dori 2 Sensor kit) As directed glipizide ER 5 mg PO QAM 90 days insulin degludec (Tresiba FlexTouch U-100 insulin) 26 units subcut DAILY lidocaine 1.8% (ZTlido) 1 patch topical DAILY 30 days metformin 1,000 mg PO BID metoprolol succinate ER 100 mg PO BID metoprolol succinate ER 12.5 mg (1/2 x 25 mg) PO DAILY 90 days nicotine (Nicoderm CQ) 1 patch transdermal DAILY 28 days omeprazole 40 mg PO DAILY 90 days pen needle, diabetic (NovoFine Plus) As directed rosuvastatin 40 mg PO DAILY 90 days sacubitril-valsartan 24-26 mg (Entresto) 1 tab PO BID 90 days semaglutide (Rybelsus) 14 mg PO DAILY 90 days sildenafil 25 mg PO DAILY PRN 30 days tizanidine 4 mg PO BEDTIME PRN 30 days trazodone 100 mg PO DAILY 30 days HPI Comments Details: Florentin is a 63-year-old male patient of Dr. Stanford. He has a past medical history of nicotine dependence, type 2 diabetes, hypertension, hyperlipidemia, GERD, stroke, and pacemaker placement. He presents to the office today as a new patient for erectile dysfunction. In discussion with the patient today he reports symptoms of ED have been present for many years however is now enquiring treatment as he has a partner. He reports following up with a urologist in [place] over 5 years ago at which time his testosterone was low however never required further treatment options. In review of patient's chart it appears testosterone 12/02 593 free testosterone 74.7. We discussed potential causes of erectile dysfunction as well as further treatment options and risks and benefits of these treatment options. He reports previously trialing Viagra however did not find this helpful. We discussed importance of management and diabetes for improvement in erectile dysfunction as well as overall health and well-being. We also discussed importance of limiting/quitting nicotine dependence in relation to erectile dysfunction as well as overall health and well-being. He otherwise denies any bothersome urinary issues. He denies urinary urgency, urinary frequency, incontinence, nocturia, hematuria, dysuria, foul smelling urine, changes to urinary stream, flank pain, fever, and or chills. He is happy with his. current voiding parameters. SHANTEL offered however deferred. He otherwise offers no other issues or concerns at this time. 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 Pacemaker Stroke Diabetes 1.5, managed as type 2 Surgical History History of appendectomy Social History Household Members: None Both parents involved: No Caregiver staying overnight: No Housing: Apartment Are you a primary foster care therapist to a significant other at home: No Do you presently have visiting nurse or other home services: No 75 years or older and lives alone: No Alcohol intake: current Alcohol intake frequency: a few times a month Alcohol type: other Comment: single [facility] Patient Tobacco Use Status: Current everyday Tobacco user Cigarette Packs Per Day: 1 Cigarettes Per Day: 20 e-Cigarette/Vaping Use: Never Used Substance Use Type: Marijuana Special yamilex needs: No service: No Current occupational status: retired Cognitive needs: No Hearing needs: No Vision needs: No Review of Systems Const All systems reviewed & are unremarkable except as noted in HPI and below Physical Exam Const General: cooperative, healthy appearing, comfortable, no acute distress, well developed, alert and awake Orientation/consciousness: patient oriented x3 Limitations: no limitations HEENT Head: Yes normal to inspection, Yes normocephalic and Yes atraumatic Ears: hearing grossly normal bilaterally Eyes General: appearance normal, both eyes and all related structures Neck Neck: Yes normal visual inspection and Yes trachea midline Chest Chest palpation & inspection: normal inspection of the chest Resp Effort & Inspection: normal respiratory effort and able to speak in complete sentences Cardio Rate: regular rate GI Inspection: Yes normal to inspection General: Yes no CVA tenderness Back/Spine/Pelvis Back: no CVA tenderness Skin General skin exam: no rashes or lesions noted Neuro General: patient oriented x3 Extrem General: Yes normal to inspection Psych Appearance: grossly normal and well kempt Mental Status: mental status grossly normal Speech and movement: Normal speech and movement present and Clear speech present Affect: normal affect Attitude: cooperative Thought process: Normal thought process present Thought content: Normal thought content present Insight: Fair insight present (Psych) Judgement: Fair judgement present (Psych) Assessment & Plan Assessment & Plan (1) Erectile dysfunction associated with type 2 diabetes mellitus: Code(s): E11.69 - Type 2 diabetes mellitus with other specified complication; N52.1 - Erectile dysfunction due to diseases classified elsewhere Category: Medical Plan In office urinalysis results reviewed with the patient today; as noted above. We discussed at length potential causes of erectile dysfunction as well as further treatment options and risks and benefits of these treatment options. Start Cialis 5 mg daily. Prescription provided for p.r.n. dosing. We discussed importance of limiting/quitting nicotine dependence for overall health and well-being as well as regards to erectile dysfunction. We discussed importance of managing diabetes for improvement in erectile dysfunction as well as overall health and well-being. Patient currently denies any bothersome urinary issues. Reports be happy with current voiding parameters. We discussed lifestyle modifications to assist with ED. Follow-up in 3 months with labs to be completed prior; or sooner with any issues, concerns, and or questions. Orders: Orders AMB Urinalysis Automated Today Z13.9 - Encounter for screening, unspecified Prostate Specific Antigen 3 Months N52.9 - Male erectile dysfunction, unspecified Testosterone, Free/Total Today N52.9 - Male erectile dysfunction, unspecified Medications: New tadalafil (Cialis) BIN N Group [facility] [id number] 5 mg PO DAILY 90 tabs 0RF sexual activity 90 days tadalafil (Cialis) administer approximately 30min before sexual activity; do not use more than 1 dose per 24hrs BIN N Group [facility] [id number] 10 mg PO .PRN PRN 14 tabs 3RF sexual activity 30 days Discontinued sildenafil administer 30 minutes to 4 hours before activity Discontinued Reason: Doctor's Order 25 mg PO DAILY 30 days PRN 6 tabs 2RF sexual activity Patient Instructions: The patient had an opportunity to ask questions regarding the treatment plan. All questions were answered. Physical exam, labs, and imaging were discussed and reviewed in detail. As well as risks, benefits, and discussion of treatment choices. No major barriers to understanding were identified. The patient expressed understanding and agreement with the above treatment plan. The patient was made aware they should contact our office by phone for worsening of their current condition, the appearance of new symptoms, or with any questions or concerns. Compliance is encouraged with any medications and follow up testing that is ordered. It is a privilege to be allowed the opportunity to participate in? your urological care.? Again, if you have any questions or concerns If you have any questions or concerns please do not hesitate to contact me. The office is [phone]. This note is constructed using voice recognition software. While every effort has been made to ensure accuracy oyster unloader errors may have been included. Yours sincerely, MEENAKSHI Yepez Coding Level of Care Code New Pt Level 4 (47778) Diagnoses Erectile dysfunction associated with type 2 diabetes mellitus E11.69; N52.1
--- OUTSIDE RECORDS SUMMARY | 2024-08-09 12:50 | XMS_ITS ---
Author Organization Endocrinology [facility] Address [address] [place] [address] Care Team Providers Care Stripper Preliminary Name Role Phone Freddie MANUEL, José Primary Care Provider Luis Pna [facility] [phone] REASON FOR VISIT Triseba Medications Medication SIG (Take, Route, Frequency, Duration) Notes Start Date End Date Status Omeprazole 40 MG 1 capsule 30 minutes before morning meal Orally Once a day for 90 days Active Tresiba FlexTouch 100 UNIT/ML inject 30 units Subcutaneous daily for 100 days Active Encounters Encounter Location Date Provider Diagnosis [facility] [address] [place] [address] 07/08/2023 Luis Henyr Plan Of Treatment Medication Medication Name Sig Start Date Stop Date Notes Omeprazole 40 MG 1 capsule 30 minutes before morning meal Orally Once a day for 90 days Tresiba FlexTouch 100 UNIT/ML inject 30 units Subcutaneous daily for 100 days Progress Notes * AMRITZuleima LOleanneDOB: 9 (62 yo M)Acc No.[id number]:07/08/2023 Patient:?Florentin NI :1960???Age:62 Y???Sex:Male Address:[address] [place], [address] * Refills? Refill Tresiba FlexTouch Solution Pen-injector, 100 UNIT/ML, Subcutaneous, 30 Milliliter, inject 30 units, daily, 100 days, Refills=0 Refill Omeprazole Capsule Delayed Release, 40 MG, Orally, 90, 1 capsule 30 minutes before morning meal, Once a day, 90 days, Refills=0 * true * Date:? Generated for Anshu mckeon/Ledy/Fabiolaitting on:?08/09/2024 12:50 PM EST
--- OUTSIDE RECORDS SUMMARY | 2024-08-09 12:50 | XMS_ITS ---
Author Organization Endocrinology [facility] Address [address] [place] [address] Care Team Providers Care Business Account Specialist Name Role Phone Freddie MANUEL, José Primary Care Provider Luis Pan Unavailable [phone] REASON FOR VISIT pen needles Medications Medication SIG (Take, Route, Fr equency, Duration) Notes Start Date End Date Status Pen [place] 32G X 6 MM use with insulin 3 times daily subcutaneously for 90 days 04/06/2021 Active Encounters Encounter Location Date Provider Diagnosis [facility] [address] [place] [address] 03/30/2023 Luis Henry Type 2 diabetes mellitus with hyperglycemia E11.65 Assessments Encounter Date Diagnosis (ICD Code) Assessment Notes Treatment Notes Treatment Clinical Notes Section Notes 03/30/2023 Type 2 diabetes mellitus with hyperglycemia (ICD-10 - E11.65) Plan Of Treatment Medication Medication Name Sig Start Date Stop Date Notes Pen [place] 32G X 6 MM use with insulin 3 times daily subcutaneously for 90 days 04/06/2021 Pen [place] 32G X 4 MM use with insulin subcutaneous 3 times daily Progress Notes * Florentin NIDOB: (62 yo M)Acc No.[id number]:03/30/2023 Patient:?Florentin Ni :1960???Age:62 Y???Sex:Male Address:[address] [place], [address] * Refills? Stop Pen [place] Miscellaneous, 32G X 4 MM, subcutaneous, use with insulin, 3 times daily Refill Pen [place] Miscellaneous, 32G X 6 MM, subcutaneously, 300 Pen Needle, use with insulin 3 times daily, 90 days, Refills=1 * true * Date:? Generated for Anshu mckeon/Ledy/Fabiolaitting on:?08/09/2024 12:50 PM EST
--- OUTSIDE RECORDS SUMMARY | 2024-08-09 12:51 | XMS_ITS ---
Author Organization [facility]ology [facility] Address [address] [place] [address] Care Team Providers Care Radius Grinder Name Role Phone Freddie MANUEL, José Primary Care Provider Luis Pan Unavailable [phone] REASON FOR VISIT Recent hospitalization Encounters Encounter Location Date Provider Diagnosis [facility]- [address] [place] [address] 02/24/2023 Luis Henry Plan Of Treatment No Information Progress Notes * Florentin NIDOB: 9 (62 yo M)Acc No.[id number]:02/24/2023 Patient:?Florentin Ni :1960???Age:62 Y???Sex:Male Address:[address] [place], [address] * true * Date:? Generated for Printi ng/Facarlitog/eTransmitting on:?08/09/2024 12:50 PM EST
--- OUTSIDE RECORDS SUMMARY | 2024-08-09 12:51 | XMS_ITS | Patient Health Record ---
Author Organization [facility] Address [address] [place] [address] Care Team Providers Care Green House Manager Name Role Phone José Frazier MD Primary Care Provider Luis Pan Unavailable [phone] Reason For Referral No Information Medications Medication SIG (Take, Route, Frequency, Duration) Notes Start Date End Date Status Omeprazole 40 MG 1 capsule 30 minutes before morning meal Orally Once a day for 90 days Active Tresiba FlexTouch 100 UNIT/ML inject 30 units Subcutaneous daily for 100 days Active Pen [place] 32G X 6 MM use with insulin 3 times daily subcutaneously for 90 days 04/06/2021 Active Losartan Potassium 50 MG 1 tablet Orally Once a day for 90 days PT LOST ALL OF HIS MEDS IN HOUSE FIRE; PLS HELP WITH INS OVERRIDE 01/07/2022 Active Rybelsus 7 MG 1 tablet at least 30 minutes before first food, beverage or other oral medicine of the day Orally Once a day for 90 days Active Farxiga 10 MG 1 tablet Orally Once a day for 90 days 09/29/2021 Active metFORMIN HCl 1000 MG 1 tablet with a meal Orally twice a day for 90 days PT LOST ALL OF HIS MEDS IN HOUSE FIRE; PLS HELP WITH INS OVERRIDE Active Rosuvastatin Calcium 40 MG 1 tablet Orally Once a day for 90 days PT LOST ALL OF HIS MEDS IN HOUSE FIRE; PLS HELP WITH INS OVERRIDE Active Ozempic (2 MG/DOSE) 8 MG/3ML 2mg Subcutaneous weekly for 84 days PT LOST ALL OF HIS MEDS IN HOUSE FIRE; PLS HELP WITH INS OVERRIDE Not-Taking Diabetic shoes . as directed 09/10/2021 Active Gloria Aspirin EC Low Dose 81 MG 1 tablet Orally Once a day for 30 day(s) Active Social History Tobacco Use: Social History Observation Description Date Details (start date - stop date) Current Smoker NA - NA Smoking Question Answer Notes Are you a: current smoker How often do you smoke cigarettes? every day How many cigarettes a day do you smoke? 11-20 Are you interested in quitting? Thinking about q uitting Alcohol Screen(Audit-c) Question Answer Notes Did you have a drink contain ing alcohol in the past year? Yes How often did you have six o r more drinks on one occasion in the past year? Never (0 points) How many drinks did you have on a typical day when you were drinking in the past year? 1 or 2 (0 points) How often did you have a dri nk containing alcohol in the past year? Two to four times a month (2 points) Points 2 Interpretation Negative Problems Problem Type SNOMED Code ICD Code Onset Dates Problem Status W/U Status Risk Notes Problem Hypercalcemia (84218511) Hypercalcemia (E83.52) Active confirmed Problem 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 mellitus (958518517) Type 2 diabetes mellitus with other diabetic neurological complication (E11.49) Active confirmed Problem Vitamin D deficiency (04114331) Vitamin D deficiency (E55.9) Active confirmed Problem Dyslipidemia (003592343) Dyslipidemia (E78.5) Active confirmed Problem Hyperglycemia due to type 2 diabetes mellitus (372474499868587) Type 2 diabetes mellitus with hyperglycemia (E11.65) Active confirmed Problem Essential hypertension (09997764) Essential (primary) hypertension (I10) Active confirmed Problem 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 Metabolic Panel (14) 09/12/2020 Comp. Metabolic Panel (14) 10/31/2021 PSA Total+ Free 09/12/2020 FSH AND LH 09/12/2020 PTH, INTACT (WITHOUT CALCIUM) 09/12/2020 TESTOSTERONE,FR(DIALYSIS) AND TOTAL(LC/M S/MS) 09/12/2020 Prolactin 09/12/2020 TSH 09/12/2020 Iron Saturation 09/12/2020 Future Test Test Name Order Date Hemoglobin A1c 11/28/2022 Microalb/Creat Ratio, Randm Ur 3 Lipid Panel 11/28/2022 Comp. Metabolic Panel (14) 11/28/2022 Insurance Providers Payer Name Payer Address Payer Phone Subscriber Number Group Number Insured Name Patient Relationship to Insured Coverage Start Date Coverage End Date [facility] DUAL COMPLETE PPO QMB [address] [address] [place] [address] [id number] QMB Florentin Ni Self - patient is the insured Medical (General) History Medical History History ICD Code Diabetes HTN Hyperlipidemia GERD Surgical History Surgery Date(Month/Year) Screws right ankle Toe amputation left foot Appendectomy 06/2020 Hospitalization History Reason Date(Month/Year) Appendectomy 06/2020
== END 2024-08-09 11:25 | disposition home or self-care (01) ==
PROVIDERS: PCP Family Medicine; Visit Provider Nurse Practitioner Family
DX: E11.69 Type 2 diabetes mellitus with other specified complication (principal); N52.1 Erectile dysfunction due to diseases classified elsewhere
CPT/HCPCS: 99204

== ENCOUNTER → 2024-08-09 10:45 | Outpatient (BNVA) | payer MEDICARE, MEDICAID, SELFPAY | PROVIDERS: PCP Family Medicine; Visit Provider Nurse Practitioner Family | DX: E11.69 Type 2 diabetes mellitus with other specified complication (principal); N52.1 Erectile dysfunction due to diseases classified elsewhere | CPT/HCPCS: 99202 ==

== ENCOUNTER 2024-08-29 10:01 | Outpatient (REF) | payer MEDICARE, SELFPAY ==
--- OUTSIDE RECORDS SUMMARY | 2024-08-29 10:49 | XMS_ITS ---
Author Organization Endocrinology [facility] Address [address] [place] [address] Care Team Providers Care Cmv Driver Name Role Phone Freddie MANUEL, José Primary Care Provider Luis Pan Unavailable [phone] REASON FOR VISIT pen needles Medications Medication SIG (Take, Route, Fr equency, Duration) Notes Start Date End Date Status Pen [place] 32G X 6 MM use with insulin 3 times daily subcutaneously for 90 days 04/06/2021 Active Encounters Encounter Location Date Provider Diagnosis [facility] [address] [place] [address] 03/30/2023 Luis Henry Type 2 diabetes mellitus with hyperglycemia E11.65 Assessments Encounter Date Diagnosis (ICD Code) Assessment Notes Treatment Notes Treatment Clinical Notes Section Notes 03/30/2023 Type 2 diabetes mellitus with hyperglycemia (ICD-10 - E11.65) Plan Of Treatment Medication Medication Name Sig Start Date Stop Date Notes Pen [place] 32G X 6 MM use with insulin 3 times daily subcutaneously for 90 days 04/06/2021 Pen [place] 32G X 4 MM use with insulin subcutaneous 3 times daily Progress Notes * Florentin NIDOB: (62 yo M)Acc No.[id number]:03/30/2023 Patient:?Florentin Ni :1960???Age:62 Y???Sex:Male Address:[address] [place], [address] * Refills? Stop Pen [place] Miscellaneous, 32G X 4 MM, subcutaneous, use with insulin, 3 times daily Refill Pen [place] Miscellaneous, 32G X 6 MM, subcutaneously, 300 Pen Needle, use with insulin 3 times daily, 90 days, Refills=1 * true * Date:? Generated for Anhsu mckeon/Ledy/Fabiolaitting on:?08/29/2024 10:49 AM EST
--- OUTSIDE RECORDS SUMMARY | 2024-08-29 10:50 | XMS_ITS ---
Author Organization Endocrinology [facility] Address [address] [place] [address] Care Team Providers Care Inpatient Pharmacist Name Role Phone Freddie MANUEL, José Primary Care Provider Luis Pan [facility] [phone] REASON FOR VISIT Triseba Medications Medication SIG (Take, Route, Frequency, Duration) Notes Start Date End Date Status Omeprazole 40 MG 1 capsule 30 minutes before morning meal Orally Once a day for 90 days Active Tresiba FlexTouch 100 UNIT/ML inject 30 units Subcutaneous daily for 100 days Active Encounters Encounter Location Date Provider Diagnosis [facility] [address] [place] [address] 07/08/2023 Luis Henry Plan Of Treatment Medication Medication Name Sig Start Date Stop Date Notes Omeprazole 40 MG 1 capsule 30 minutes before morning meal Orally Once a day for 90 days Tresiba FlexTouch 100 UNIT/ML inject 30 units Subcutaneous daily for 100 days Progress Notes * RAINE FlorentinDOB: [birth year] (62 yo M)Acc No.[id number]:07/08/2023 Patient:?Florentin NI :1960???Age:62 Y???Sex:Male Address:[address] [place], [address] * Refills? Refill Tresiba FlexTouch Solution Pen-injector, 100 UNIT/ML, Subcutaneous, 30 Milliliter, inject 30 units, daily, 100 days, Refills=0 Refill Omeprazole Capsule Delayed Release, 40 MG, Orally, 90, 1 capsule 30 minutes before morning meal, Once a day, 90 days, Refills=0 * true * Date:? Generated for Anshu mckeon/Ledy/Fabiolaitting on:?08/29/2024 10:49 AM EST
--- OUTSIDE RECORDS SUMMARY | 2024-08-29 10:50 | XMS_ITS | Patient Health Record ---
Author Organization [facility]inology [facility] Address [address] [place] [address] Care Team Providers Care Diabetes Trainer Name Role Phone José Frazier MD Primary Care Provider Luis Pan Unavailable [phone] Reason For Referral No Information Medications Medication SIG (Take, Route, Frequency, Duration) Notes Start Date End Date Status Omeprazole 40 MG 1 capsule 30 minutes before morning meal Orally Once a day for 90 days Active Tresiba FlexTouch 100 UNIT/ML inject 30 units Subcutaneous daily for 100 days Active Pen [place] 32G X 6 MM use with insulin [...] Status W/U Status Risk Notes Problem Hypercalcemia (55259330) Hypercalcemia (E83.52) Active confirmed Problem 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 mellitus (633357948) Type 2 diabetes mellitus with other diabetic neurological complication (E11.49) Active confirmed Problem Vitamin D deficiency (46421688) Vitamin D deficiency (E55.9) Active confirmed Problem Dyslipidemia (769911102) Dyslipidemia (E78.5) Active confirmed Problem Hyperglycemia due to type 2 diabetes mellitus (172392627820999) Type 2 diabetes mellitus with hyperglycemia (E11.65) Active confirmed Problem Essential hypertension (46708507) Essential (primary) hypertension (I10) Active confirmed Problem Disorder of calcium metabolism (11361758) 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 Problem Abnormal result, function study of peripheral nervous system / special senses (929542299) Abnormal results of function studies of other [...] Insured Coverage Start Date Coverage End Date [facility] DUAL COMPLETE PPO QMB [address] [address] [place] [address] [id number] QMB Florentin Ni Self - patient is the insured Medical (General) History Medical History History ICD Code Diabetes HTN Hyperlipidemia GERD Surgical History Surgery Date(Month/Year) Screws right ankle Toe amputation left foot Appendectomy 06/2020 Hospitalization History Reason Date(Month/Year) Appendectomy 06/2020
[2024-08-29 10:59] LABS: MANUAL DIFF FLAG NO
[2024-08-29 11:16] LABS: Basophils Absolute Auto 0.1 X10*3/uL (0.0-0.2); Basophils Percent Auto 1.3 % (0-2); Eosinophils Absolute Auto 0.7 X10*3/uL (0.0-0.4); Eosinophils Percent Auto 7.1 % (0-4); Hemoglobin 13.1 g/dl (14.0-18.0); Imm Gran Abs Auto 0.05 X10*3/uL (0.00-0.03); Imm Gran Pct Auto 0.5 % (0.0-0.4); Lymphocytes Percent Auto 19.7 % (20-40); Mean Corpuscular HGB Conc 32.8 g/dl (31.0-36.0); Mean Corpuscular Hemoglobin 27.5 pg (27.0-33.0); Mean Corpuscular Volume 83.9 fL (80.0-98.0); Mean Platelet Volume 11.2 fL (9.4-12.4); Monocytes Absolute Auto 0.8 X10*3/uL (0.1-1.2); Monocytes Percent Auto 7.9 % (2-11); Neutrophils Absolute Auto 6.3 x10*3/uL (2.0-8.3); Neutrophils Percent Auto 63.5 % (45-73); Platelet Count 356 X10*3/uL (160-400); Red Blood Count 4.77 X10*6/uL (4.60-5.80); Red Cell Distribution Width 15.3 % (11.0-16.0)
[2024-08-29 12:14] LABS: Alanine Aminotransferase 36 U/L (0-40); Alkaline Phosphatase 45 U/L (39-117); Anion Gap 15 (12-20); Aspartate Amino Transferase 32 U/L (5-37); Bilirubin Total 0.3 mg/dL (0.0-1.0); Blood Urea Nitrogen 26 mg/dL (9-16); Calcium 9.2 mg/dL (8.4-10.2); Carbon Dioxide 22 mmol/L (22-29); Chloride 104 mmol/L (96-108); Estimated Glomerular Filt Rate 52; Glucose Fasting 213 mg/dL (60-99); Iron 53 mcg/dL (45-160); Percent Iron Saturation 28 % (15-50); Potassium 4.8 mmol/L (3.3-5.1); Sodium 136 mmol/L (135-145); Total Iron Binding Capacity 190 mcg/dL (228-428); Unsaturated Iron Binding 137 ug/dL
[2024-08-29 12:34] LABS: Ferritin 170 ng/mL (20-250)
[2024-08-29 14:25] LABS: Appearance Urine Clear; Color Urine Yellow; Glucose Urine UA >=1000 mg/dL (Negative); Leukocyte Esterase Urine Negative (Negative); Nitrite Urine Negative (Negative); PH 5.5 (5.0-9.0); Specific Gravity - Urine 1.025 (1.005-1.025); UMIC TRIGGER UA YES; Urine Blood Negative (Negative); Urine Ketones 15 mg/dL (Negative); Urine Protein Negative (Neg-Trace)
[2024-08-29 14:32] LABS: Bacteria Urine None Seen (None Seen); Hyaline Casts Urine 0-2 /LPF (0-2); RBC Urine 0-2 /HPF (0-2); Squamous Epithelial Cell Urine 0-2 /HPF (0-2); WBC Urine 0-5 /HPF (0-5)
[2024-08-29 14:56] LABS: Creatinine Urine 84.62 mg/dL; Microalbum/Creatinine Ratio Ur 22.4 ug/mg cr (<30)
[2024-09-02 16:23] LABS: Testosterone, Free 62.6 pg/mL (35.0-155.0); Testosterone, Total 602 ng/dL (250-1100)
== END 2024-08-29 10:02 | disposition home or self-care (01) ==
LOC: HO.WFDLDS 10:01
PROVIDERS: Referring Provider Nurse Practitioner Family; Visit Provider Family Medicine
DX: Z00.00 Encounter for general adult medical examination without abnormal findings (principal); I10 Essential (primary) hypertension; D64.9 Anemia, unspecified; N52.9 Male erectile dysfunction, unspecified
CPT/HCPCS: 36415; 80053; 81001; 82043; 82570; 82728; 83540; 84402; 84403; 85025

== ENCOUNTER 2024-09-25 15:19 | Outpatient (AMB) | payer MEDICARE, MEDICAID, SELFPAY ==
--- NOTE | 2024-09-25 15:30 | A.OFFPC_ITS ---
Vital Signs 09/25/24 15:37 Height 5 ft 9.75 in Weight 190 lb 8 oz BMI 27.5 BP 120/60 Blood Pressure Location Lt brachial Position Sitting Respiration 12 Pulse 82 Pulse Source Pulse Oximeter Temp 97.9 F Temp Source Oral Pulse Oximetry (%) 98 Oxygen Delivery Method Room Air Intake Visit Reasons: f/u hypertension, diabetes Intake Note: patient is scheduled for dm-follow up Cuff Runner Required: No Allergies No Known Allergies Allergy (Verified 09/25/24 15:36) Tobacco use date assessed: 02/07/24 Dental Screening Dental Screen Date: 02/07/24 HPI f/u hypertension, diabetes HPI Details 63 y/o male presents to f/u HTN, DM. Blood pressure had been a bit low so I had decreased his metoprolol to 12.5mg daily. His A1c had climbed so I increased his glipizide. Last A1c 06/19/24 7.3%. A1c today 09/25/24 is 7.2%. BP today 120/60, 82p. He reports back pain. He notes he used to get shots for his back which helped with pain. 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 Stroke Diabetes 1.5, managed as type 2 Surgical History History of appendectomy Social History Household Members: None Both parents involved: No Caregiver staying overnight: No Housing: Apartment Are you a primary wound care center consultant to a significant other at home: No Do you presently have visiting nurse or other home services: No 75 years or older and lives alone: No Alcohol intake: current Alcohol intake frequency: a few times a month Alcohol type: other Comment: single malt scotch Patient Tobacco Use Status: Current everyday Tobacco user Cigarette Packs Per Day: 1 Cigarettes Per Day: 20 e-Cigarette/Vaping Use: Never Used Substance Use Type: Marijuana Special yamilex needs: No service: No Current occupational status: retired Cognitive needs: No Hearing needs: No Vision needs: No Questionnaire PHQ-9 Over the last 2 weeks, how often have you been bothered by any of the following problems? 1. Little interest or pleasure in doing things: not at all 2. Feeling down, depressed, or hopeless: not at all 3. Trouble falling or staying asleep, or sleeping too much: not at all 4. Feeling tired or having little energy: not at all 5. Poor appetite or overeating: not at all 6. Feeling bad about yourself - or that you are a failure or have let yourself or your family down: not at all 7. Trouble concentrating on things, such as reading the newspaper or watching television: not at all 8. Moving or speaking so slowly that other people could have noticed. Or the opposite - being so fidgety or restless that you have been moving around a lot more than usual: not at all Source: Developed by Drs. Mega Teresa, Berenice Hardin, Rory Hewitt and colleagues, with an educational claudine from [employer]. Thrive Questionnaire Date Thrive assessed: 06/19/24 I am a: Patient What is your living situation today?: I choose not to answer this question Within the past 12 months, did the food you bought not last and you didn't have the money to get more?: I choose not to answer this question Within the past 12 months, did you worry whether your food would run out before you got money to buy more?: I choose not to answer this question Do you have trouble paying for medicines?: I choose not to answer this question Do you have trouble getting transportation to medical appointments?: I choose not to answer this question Do you have trouble paying your heating and electricity bill?: I choose not to answer this question Do you have trouble taking care of your child, family member or friend?: I choose not to answer this question Do you have trouble with day-to-day activities such as bathing, preparing meals, shopping, managing finances, etc.?: I choose not to answer this question Are you currently unemployed and looking for a job?: I choose not to answer this question Are you interested in more education?: I choose not to answer this question Please select the resources that you would like help with: None Currently or been in a relationship where the following occur: I choose not to answer THRIVE Score: 0 AUDIT C Alcohol Use Questionnaire (AUDIT-C) 1. How often do you have a drink containing alcohol?: Never Total Score: 0 BELTRAN-7 AMB Questionnaire BELTRAN-7 Date BELTRAN - 7 assessed: 11/24/23 Feeling nervous, anxious, or on edge: 0 = Not at all Not being able to stop or control worryin = Not at all Worrying too much about different things: 0 = Not at all Trouble relaxin = Not at all Being so restless that it is hard to sit still: 0 = Not at all Becoming easily annoyed or irritable: 0 = Not at all Feeling afraid as if something awful might happen: 0 = Not at all Total BELTRAN-7 score (0-4 normal; 5-9 mild; 10-14 moderate; 15-21 severe): 0 Source: Developed by Drs. Mega Teresa, Berenice Hardin, Rory Hewitt and colleagues, with an educational claudine from [employer]. Review of Systems Const Denies chills, Denies fatigue, Denies fever(s), Denies headache(s) and Denies weakness ENT Denies dizziness and Denies headache(s) Card Denies dyspnea Resp Denies cough, Denies dyspnea, Denies wheezing and Denies other (shortness of breath) Musc Denies numbness and Denies tingling Neuro Denies dizziness, Denies headache(s), Denies numbness, Denies tingling and Denies weakness Psych Denies anxiety and Denies depression Endo Denies fatigue Aller/Immun Denies wheezing Physical exam (Primary Care) Vital Signs: Last Vital Signs Temp 97.9 F 09/25/24 15:37 Pulse 82 09/25/24 15:37 Resp 12 09/25/24 15:37 BP 120/60 09/25/24 15:37 Pulse Ox 98 09/25/24 15:37 Oxygen Delivery Method Room Air 09/25/24 15:37 BMI result Body Mass Index 27.5 Tobacco/Smoking Status: Tobacco use Status Tobacco use date assessed 02/07/24 09/25/24 15:31 Patient Tobacco Use Status Current everyday Tobacco 09/25/24 15:31 e-Cigarette/Vaping Use Never Used 09/25/24 15:31 Thrive Assessment: Date of Thrive Assessment Date Thrive assessed 06/19/24 09/25/24 15:31 Currently or been in a relationship where the following occur: I choose not to answer Const General: well developed; No acute distress Nutritional Appearance: well nourished Orientation/consciousness: patient oriented x3 HENMT Head: Yes normocephalic and Yes atraumatic Eyes General: appearance normal, both eyes and all related structures Pupils: Equal, round and reactive pupils present EOM: EOMs intact bilaterally Resp Effort & Inspection: normal respiratory effort Neuro General: patient oriented x3 and gait normal Cranial nerves: Yes Equal, round and reactive pupils present Psych Affect: normal affect Coding Level of Care Code Est Pt Level 4 (45486) Diagnoses Hypertension I10 Diabetes E11.9 Back pain M54.9 Assessment & Plan Assessment & Plan (1) Hypertension: Code(s): I10 - Essential (primary) hypertension Category: Medical Plan: Blood?pressure?is?controlled.??Goal?is?less?than?130/80. Had?decreased?metoprolol?from?25?mg?daily?to?12.5?mg?daily?at?last?visit?due?to? low?blood?pressures. Blood?pressure?now?appears?controlled?without?low?blood?pressures Continue?current?medications (2) Diabetes: Code(s): E11.9 - Type 2 diabetes mellitus without complications Category: Medical Plan: A1c?was?elevated?at?7.3%?at?last?visit. Increase?glipizide?ER?to?5?mg?daily A1c?still?elevated?at?7.2%?and?goal?is?less?than?7.0% Will?increase?glipizide?ER to 10?mg?daily Continue other diabetes?medications?as?prescribed. Will?continue?to?monitor (3) Back pain: Code(s): M54.9 - Dorsalgia, unspecified Category: Medical Plan: Longstanding?back?pain. Patient?notes?that?he?used?to?get?injection?therapy?and?that?this?was?helpful. He?says?he?would?like?to?pursue?this?again Will?check?x-rays?as?he?has?not?had?any?recent?x-rays?of?his?lumbar?spine Referred?to?pain?management?to?consider?treatment?with?injection?therapy. Orders: Orders XR lumbar spine 2-3V Today M54.9 - Dorsalgia, unspecified Referrals Pain Management Referral M54.9 - Dorsalgia, unspecified
[2024-09-25 15:37] VITALS: BP 120/60; PULSE 82; RESP 12; TEMP 36.6; O2SAT 98; BMI 27.5
--- OUTSIDE RECORDS SUMMARY | 2024-09-25 17:49 | XMS_ITS ---
Author Organization Endocrinology [facility] Address [address] [place] [address] Care Team Providers Care Nutrition Counselor Name Role Phone Freddie MANUEL, José Primary Care Provider Luis Pan Unavailable [phone] REASON FOR VISIT pen needles Medications Medication SIG (Take, Route, Fr equency, Duration) Notes Start Date End Date Status Pen [place] 32G X 6 MM use with insulin 3 times daily subcutaneously for 90 days 04/06/2021 Active Encounters Encounter Location Date Provider Diagnosis [facility] [address] [place] [address] 03/30/2023 Luis Henry Type 2 diabetes mellitus with hyperglycemia E11.65 Assessments Encounter Date Diagnosis (ICD Code) Assessment Notes Treatment Notes Treatment Clinical Notes Section Notes 03/30/2023 Type 2 diabetes mellitus with hyperglycemia (ICD-10 - E11.65) Plan Of Treatment Medication Medication Name Sig Start Date Stop Date Notes Pen [place] 32G X 6 MM use with insulin 3 times daily subcutaneously for 90 days 04/06/2021 Pen [place] 32G X 4 MM use with insulin subcutaneous 3 times daily Progress Notes * Florentin NIDOB: (62 yo M)Acc No.[id number]:03/30/2023 Patient:?Florentin Ni :1960???Age:62 Y???Sex:Male Address:[address] [place], [address] * Refills? Stop Pen [place] Miscellaneous, 32G X 4 MM, subcutaneous, use with insulin, 3 times daily Refill Pen [place] Miscellaneous, 32G X 6 MM, subcutaneously, 300 Pen Needle, use with insulin 3 times daily, 90 days, Refills=1 * true * Date:? Generated for Anshu mckeon/Ledy/Fabiolaitting on:?09/25/2024 05:49 PM EDT
--- OUTSIDE RECORDS SUMMARY | 2024-09-25 17:49 | XMS_ITS | Continuity of Care Document ---
Author Organization [facility] 2 [facility] [address] [place] [address] Phone [phone] Problems Active Problems Provider Date Type 2 [...] SIG Qnty Indications Order ing Provider Date Pen Qfrgofd87N X 4 mm Misc use one needle with insulin tacos, use three times a day 100units Mona Muhammad M.D. 08/16/2024 Mounjaro2.5mg/0.5ML Solution Auto-Inject inject 0.5ml injection subcutaneously weekly 2ml Mona Muhammad M.D. 08/16/2024 Humalog Fempqkv005Oqvb/ML Solution Pen-Inject inject 8 units subcutaneously before meals 30ml E11.21 Mona Muhammad M.D. 01/05/2024 Freestyle Dori 2/[place]ck[place]/Flash Glucose Monitoring Yucmbk1Wdrhly Device use as directed with sensors 1units E11Agatha9 Mona Muhammad M.D. 09/20/2023 Freestyle Dori 2/Sensor/Flash Glucose Monitoring Hlobrp7Amxhvq Misc 1 sensor to skin every fourteen days as directed dx: e11.9 3units E11.9 Mona Muhammad M.D. 09/20/2023 Accu-Chek GuideStrips Unknown Aspirin 8181mg Tablets DR 1 by mouth every day Unknown Ketoconazole2% Cream Unknown Accu-Chek GuideStrips Unknown Cdazzcn61cw Tablets Take 1 tablet by mouth daily 90tabs Mona Muhammad M.D. Tresiba Mlsyvumvy903Gydw/ML Solution Pen-Inject 30 units daily 30ml E11.21 Mona Muhammad M.D. Vjtiiodhmq08bk Capsules DR Take 1 capsule by mouth daily 90caps Mona Muhammad M.D. Metformin ORP5102eq Tablets Take 1 tablet by mouth 2 times daily 180tabs Mona Muhammad M.D. Ztlido1.8% Patches 1 patch daily Unknown Tizanidine HCL4mg Tablets Take 1 Tablet By Mouth Three Times Daily 270tabs Mona Muhammad M.D. Rosuvastatin Uyblppg24wm Tablets Take 1 tablet by mouth daily Unknown Losartan Akirnylgk99wf Tablets Take 1 tablet by mouth daily Unknown Trazodone BVJ534ls Tablets Take 1 tablet by mouth at bedtime as needed Unknown History Medications Novolog Wkxefhb313Omtb/ML Solution Pen-Inject inject 8 units every day before dinner 30ml E11.21 Mona Muhammad M.D. 12/30/2023 - 01/05/2024 Vital Signs Date Vital Result Comment 08/16/2024 11:38am BP Systolic 100 mmHg BP Diastolic 60 mmHg Heart Rate 75 /min Height 59 inches 4'11 Weight 189.50 lb BMI (Body Mass Index) 38.3 kg/m2 Results Test Acquired Date Facility Test Result H/L Range N ote Hemoglobin A1c 08/16/2024 Inhouse Hemoglobin A1c 8.0% Glucose Fingerstick 08/16/2024 Inhouse Glucose Fingerstick 155 Glucose Fingerstick 04/20/2024 Inhouse Glucose Fingerstick 151 Hemoglobin A1c 04/20/2024 Inhouse Hemoglobin A1c 7.1 % Glucose Fingerstick 12/29/2023 Inhouse Glucose Fingerstick 133 Hemoglobin A1c 12/29/2023 Inhouse Hemoglobin A1c 8.2 Renin Activity, Plasma 11/11/2023 [facility] Renin Activity, Plasma 1.916 ng/mL/hr 0.167-5.3 80 1 Aldosterone LCMS, Serum 11/11/2023 [facility] Aldosterone LCMS, Serum 5.7 ng/dL 0.0-30.0 Glucose Fingerstick 10/28/2023 Inhouse Glucose Fingerstick 94 Comp. Metabolic Panel (14) 10/20/2023 [facility] Glucose 115 mg/dL High 70-99 BUN 22 mg/dL 8-27 Creatinine 1.18 mg/dL 0.76-1.27 eGFR 69 mL/min/1.7 3 >59 BUN/Creatinine Ratio 19 10-24 Sodium 137 [...] 8-27 Creatinine 1.02 mg/dL 0.76-1.27 eGFR 82 mL/min/1.7 3 >59 BUN/Creatinine Ratio 21 10-24 Sodium 141 [...] 58 mg/dL 0-99 Comment: TNP CBC With Differential/Liya telet 09/28/2023 [facility] WBC 11.7 x10E3/uL High 3.4-10.8 [...] Lymphs (Absolute) 3.2 x10E3/uL High 0.7-3.1 Monocytes(Absol priya ) 1.1 x10E3/uL High 0.1-0.9 Eos (Absolute) 0.7 x10E3/uL High 0.0-0.4 Baso (Absolute) 0.1 x10E3/uL 0.0-0.2 Immature Granulocytes 0 % Not Estab. Immature Grans (Abs) 0.0 x10E3/uL 0.0-0.1 NRBC TNP Hematology Comments: TNP Vitamin B12 09/28/2023 [facility] Vitamin B12 966 pg/mL 232-1245 Albumin/Creatini ne Ratio, Random Urine 09/28/2023 [facility] Creatinine, Urine 66.4 mg/dL Not Estab. Albumin, Urine 44.6 ug/mL Not Estab. Alb/Creat Ratio 67 mg/gcreat High 0-29 2 Glucose Fingerstick 09/17/2023 Inhouse Glucose Fingerstick 223 Hemoglobin A1c 09/17/2023 Inhouse Hemoglobin A1c 8.2% 1 Test(s) 033373-Sform terone was developed and its performance characteristics determined by [facility]. It has not been cleared or approved by the Food and Drug Administration. Test(s) 159935-Ddvxy Activity, Plasma was developed and its performance characteristics determined by [facility]. It has not been cleared or approved by the Food and Drug Administration. 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 E66.9 Obesity, unspecified Z68.38 Body mass index [BMI ] 38.0-38.9, adult Assessments Date Code Description Provider 08/16/2024 E11.9 Type 2 diabetes mellitus wit hout complications CHETAN Govea 08/16/2024 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.4 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 terminal operator (current) use of i nsulin CHETAN Govea 08/16/2024 E66.9 Obesity, unspecified CHETAN Govea 08/16/2024 Z68.38 Body mass index [BMI] 38.0-3 8.9, adult CHETAN Govea Plan of Treatment Future Appointment(s):* 11/15/2024 11:15 am - CHETAN Govea at Main Office 08/16/2024 - CHETAN Govea* E11.9 Type 2 diabetes mellitus without complications * Z79.4 residential (current) use of insulin * E66.9 Obesity, unspecified * Z68.38 Body mass index [BMI] 38.0-38.9, adult * Functional Status Description No Information Available Mental Status Description No Information Available Referrals Refer to Reason for Referral Status Appt Oleg Lisa Zuniga DPM [facility] Closed [address] [place] [address] [phone]
--- OUTSIDE RECORDS SUMMARY | 2024-09-25 17:50 | XMS_ITS | Patient Health Record ---
Author Organization [facility] Address [address] [place] [address] Care Team Providers Care Marine Surveyor Name Role Phone José Frazier MD Primary Care Provider Luis Pan Unavailable [phone] Reason For Referral No Information Medications Medication SIG (Take, Route, Frequency, Duration) Notes Start Date End Date Status Omeprazole 40 MG 1 capsule 30 minutes before morning meal Orally Once a day for 90 days Active Tresiba FlexTouch 100 UNIT/ML inject 30 units Subcutaneous daily for 100 days Active Pen [place] 32G X 6 MM use with insulin [...] Status W/U Status Risk Notes Problem Hypercalcemia (05850915) Hypercalcemia (E83.52) Active confirmed Problem 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 mellitus (600709551) Type 2 diabetes mellitus with other diabetic neurological complication (E11.49) Active confirmed Problem Vitamin D deficiency (19807411) Vitamin D deficiency (E55.9) Active confirmed Problem Dyslipidemia (546658467) Dyslipidemia (E78.5) Active confirmed Problem Hyperglycemia due to type 2 diabetes mellitus (691808440854748) Type 2 diabetes mellitus with hyperglycemia (E11.65) Active confirmed Problem Essential hypertension (54622498) Essential (primary) hypertension (I10) Active confirmed Problem 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 Problem Abnormal result, function study of peripheral nervous system / special senses (743484084) Abnormal results of function studies of other [...] Insured Coverage Start Date Coverage End Date [facility] DUAL COMPLETE PPO QMB [address] [address] [place] [address] [id number] QMB Florentin Ni Self - patient is the insured Medical (General) History Medical History History ICD Code Diabetes HTN Hyperlipidemia GERD Surgical History Surgery Date(Month/Year) Screws right ankle Toe amputation left foot Appendectomy 06/2020 Hospitalization History Reason Date(Month/Year) Appendectomy 06/2020
--- OUTSIDE RECORDS SUMMARY | 2024-09-25 17:50 | XMS_ITS ---
Author Organization [facility] Address [address] [place] [address] Care Team Providers Care Job Development Specialist Name Role Phone Freddie MANUEL, José Primary Care Provider Luis Pan [facility] [phone] REASON FOR VISIT Triseba Medications Medication SIG (Take, Route, Frequency, Duration) Notes Start Date End Date Status Omeprazole 40 MG 1 capsule 30 minutes before morning meal Orally Once a day for 90 days Active Tresiba FlexTouch 100 UNIT/ML inject 30 units Subcutaneous daily for 100 days Active Encounters Encounter Location Date Provider Diagnosis [facility] [address] [place] [address] 07/08/2023 Luis Henry Plan Of Treatment Medication Medication Name Sig Start Date Stop Date Notes Omeprazole 40 MG 1 capsule 30 minutes before morning meal Orally Once a day for 90 days Tresiba FlexTouch 100 UNIT/ML inject 30 units Subcutaneous daily for 100 days Progress Notes * RAINE FlorentinDOB: 9 (62 yo M)Acc No.[id number]:07/08/2023 Patient:?Florentin NI :1960???Age:62 Y???Sex:Male Address:[address] [place], [address] * Refills? Refill Tresiba FlexTouch Solution Pen-injector, 100 UNIT/ML, Subcutaneous, 30 Milliliter, inject 30 units, daily, 100 days, Refills=0 Refill Omeprazole Capsule Delayed Release, 40 MG, Orally, 90, 1 capsule 30 minutes before morning meal, Once a day, 90 days, Refills=0 * true * Date:? Generated for Anshu mckeon/Ledy/Fabiolaitting on:?09/25/2024 05:49 PM EDT
== END 2024-09-25 16:12 | disposition home or self-care (01) ==
LOC: HO.HMCFM 15:20
PROVIDERS: PCP Family Medicine; Visit Provider Family Medicine
DX: I10 Essential (primary) hypertension (principal); E11.9 Type 2 diabetes mellitus without complications; M54.9 Dorsalgia, unspecified

== ENCOUNTER → 2024-09-25 15:19 | Outpatient (BNVA) | payer OTHER, SELFPAY | PROVIDERS: PCP Family Medicine; Visit Provider Family Medicine | DX: I10 Essential (primary) hypertension (principal); E11.9 Type 2 diabetes mellitus without complications; M54.9 Dorsalgia, unspecified | CPT/HCPCS: 83036; 99212 ==

== ENCOUNTER 2024-09-27 14:28 | Outpatient (REF) | payer OTHER, SELFPAY ==
--- NOTE | ~2024-09-27 | XR_ITS ---
EXAMINATION: XR LUMBAR SPINE 2-3 VIEWS HISTORY: M54.9 - Dorsalgia, unspecified COMPARISON: There are no prior studies for comparison. FINDINGS: AP, lateral, and coned down views of the lumbar spine are submitted. Osseous mineralization is normal. Five nonrib-bearing lumbar vertebral bodies are identified, maintaining normal height and alignment without evidence of fracture or spondylolisthesis. There is severe degenerative disc disease at L5-S1, with disc space narrowing and osteophyte formation. The remaining intervertebral disc spaces are maintained. The posterior elements are intact. The visualized paraspinal soft tissues are unremarkable. XR/XR lumbar spine 2-3V IMPRESSION: Severe degenerative disc disease at L5-S1. Electronically signed by: Mega Jara MD 09/27/2024 03:50 PM EDT
--- OUTSIDE RECORDS SUMMARY | 2024-09-27 16:49 | XMS_ITS | Patient Health Record ---
Author Organization [facility] Address [address] [place] [address] Care Team Providers Care Inspector Weights And Measures Name Role Phone José Frazier MD Primary Care Provider Luis Pan Unavailable [phone] Reason For Referral No Information Medications Medication SIG (Take, Route, Frequency, Duration) Notes Start Date End Date Status Omeprazole 40 MG 1 capsule 30 minutes before morning meal Orally Once a day for 90 days Active Tresiba FlexTouch 100 UNIT/ML inject 30 units Subcutaneous daily for 100 days Active Pen [place] 32G X 6 MM use with insulin [...] Status W/U Status Risk Notes Problem Hypercalcemia (21508896) Hypercalcemia (E83.52) Active confirmed Problem 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 mellitus (755507060) Type 2 diabetes mellitus with other diabetic neurological complication (E11.49) Active confirmed Problem Vitamin D deficiency (66513613) Vitamin D deficiency (E55.9) Active confirmed Problem Dyslipidemia (363825877) Dyslipidemia (E78.5) Active confirmed Problem Hyperglycemia due to type 2 diabetes mellitus (400148537711902) Type 2 diabetes mellitus with hyperglycemia (E11.65) Active confirmed Problem Essential hypertension (36059930) Essential (primary) hypertension (I10) Active confirmed Problem Disorder of calcium metabolism (79813341) 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 Problem Abnormal result, function study of peripheral nervous system / special senses (210504649) Abnormal results of function studies of other [...] Insured Coverage Start Date Coverage End Date [facility] DUAL COMPLETE PPO QMB [address] [address] [place] [address] [id number] QMB Florentin Ni Self - patient is the insured Medical (General) History Medical History History ICD Code Diabetes HTN Hyperlipidemia GERD Surgical History Surgery Date(Month/Year) Screws right ankle Toe amputation left foot Appendectomy 06/2020 Hospitalization History Reason Date(Month/Year) Appendectomy 06/2020
--- OUTSIDE RECORDS SUMMARY | 2024-09-27 16:49 | XMS_ITS | Continuity of Care Document ---
Author Organization [facility] [address] [facility] [address] [place] [address] Phone [phone] Problems Active Problems Provider Date Type 2 [...] Qnty Indications Order ing Provider Date Pen Fjpwhgc40I X 4 mm Misc use one needle with insulin tacos, use three times a day 100units Mona Muhammad M.D. 08/16/2024 Mounjaro2.5mg/0.5ML Solution Auto-Inject inject 0.5ml injection subcutaneously weekly 2ml Mona Muhammad M.D. 08/16/2024 Humalog Axfmzql796Gbhb/ML Solution Pen-Inject inject 8 units subcutaneously before meals 30ml E11.21 Mona Muhammad M.D. 01/05/2024 Freestyle Dori 2/[place]/Flash Glucose Monitoring Uqmxeg3Fxikce Device use as directed with sensors 1units E11Agatha9 Mona Muhammad M.D. 09/20/2023 Freestyle Dori 2/Sensor/Flash Glucose Monitoring Avgdgo9Uvroyn Misc 1 sensor to skin every fourteen days as directed dx: e11.9 3units E11.9 Mona Muhammad M.D. 09/20/2023 Accu-Chek GuideStrips Unknown Aspirin 8181mg Tablets DR 1 by mouth every day Unknown Ketoconazole2% Cream Unknown Accu-Chek GuideStrips Unknown Mdlczfi90sy Tablets Take 1 tablet by mouth daily 90tabs Mona Muhammad M.D. Tresiba Mhhofrgnm760Vqku/ML Solution Pen-Inject 30 units daily 30ml E11.21 Mona Muhammad M.D. Lmrluvmwye29sw Capsules DR Take 1 capsule by mouth daily 90caps Mona Muhammad M.D. Metformin CVY4243si Tablets Take 1 tablet by mouth 2 times daily 180tabs Mona Muhammad M.D. Ztlido1.8% Patches 1 patch daily Unknown Tizanidine HCL4mg Tablets Take 1 Tablet By Mouth Three Times Daily 270tabs Mona Muhammad M.D. Rosuvastatin Elzneyj74sb Tablets Take 1 tablet by mouth daily Unknown Losartan Nsiuhdzwi28jl Tablets Take 1 tablet by mouth daily Unknown Trazodone SEZ310fa Tablets Take 1 tablet by mouth at bedtime as needed Unknown History Medications Novolog Fmsrbvg446Jwpi/ML Solution Pen-Inject inject 8 units every day [...] 09/17/2023 Inhouse Hemoglobin A1c 8.2% 1 Test(s) 020472-Bojsz terone was developed and its performance characteristics determined by [facility]. It has not been cleared or approved by the Food and Drug Administration. Test(s) 429812-Hyedp Activity, Plasma was developed and its performance characteristics determined by [facility]. It has not been cleared or approved by the Food and Drug Administration. 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 E66.9 Obesity, unspecified Z68.38 Body mass index [BMI ] 38.0-38.9, adult Assessments Date Code Description Provider 08/16/2024 E11.9 Type 2 diabetes mellitus wit hout complications CHETAN Govea 08/16/2024 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 CHETAN Govea 08/16/2024 E66.9 Obesity, unspecified CHETAN Govea 08/16/2024 Z68.38 Body mass index [BMI] 38.0-3 8.9, adult CHETAN Govea Plan of Treatment Future Appointment(s):* 11/15/2024 11:15 am - CHETAN Govea at Main Office 08/16/2024 - CHETAN Govea* E11.9 Type 2 diabetes mellitus without complications * Z79.4 [facility] (current) use of insulin * E66.9 Obesity, unspecified * Z68.38 Body mass index [BMI] 38.0-38.9, adult * Functional Status Description No Information Available Mental Status Description No Information Available Referrals Refer to Reason for Referral Status Appt Oleg Lisa Zuniga DPM [facility] Closed [address] [place] [address] [phone]
--- OUTSIDE RECORDS SUMMARY | 2024-09-27 16:49 | XMS_ITS ---
Author Organization [facility] Address [address] [place] [address] Care Team Providers Care Presales Engineer Name Role Phone Freddie MANUEL, José Primary Care Provider Luis Pan Unavailable [phone] REASON FOR VISIT pen needles Medications Medication SIG (Take, Route, Fr equency, Duration) Notes Start Date End Date Status Pen [place] 32G X 6 MM use with insulin 3 times daily subcutaneously for 90 days 04/06/2021 Active Encounters Encounter Location Date Provider Diagnosis [facility] [address] [place] [address] 03/30/2023 Luis Henry Type 2 diabetes mellitus with hyperglycemia E11.65 Assessments Encounter Date Diagnosis (ICD Code) Assessment Notes Treatment Notes Treatment Clinical Notes Section Notes 03/30/2023 Type 2 diabetes mellitus with hyperglycemia (ICD-10 - E11.65) Plan Of Treatment Medication Medication Name Sig Start Date Stop Date Notes Pen [place] 32G X 6 MM use with insulin 3 times daily subcutaneously for 90 days 04/06/2021 Pen [place] 32G X 4 MM use with insulin subcutaneous 3 times daily Progress Notes * Florentin NIDOB: (62 yo M)Acc No.[id number]:03/30/2023 Patient:?Florentin Ni :1960???Age:62 Y???Sex:Male Address:[address] [place], [address] * Refills? Stop Pen [place] Miscellaneous, 32G X 4 MM, subcutaneous, use with insulin, 3 times daily Refill Pen [place] Miscellaneous, 32G X 6 MM, subcutaneously, 300 Pen Needle, use with insulin 3 times daily, 90 days, Refills=1 * true * Date:? Generated for Anshu mckeon/Ledy/Fabiolaitting on:?09/27/2024 04:48 PM EDT
--- OUTSIDE RECORDS SUMMARY | 2024-09-27 16:49 | XMS_ITS ---
Author Organization [facility] Address [address] [place] [address] Care Team Providers Care Wind Project Manager Name Role Phone Freddie MANUEL, José Primary Care Provider Luis Pan [facility] [phone] REASON FOR VISIT Triseba Medications Medication SIG (Take, Route, Frequency, Duration) Notes Start Date End Date Status Omeprazole 40 MG 1 capsule 30 minutes before morning meal Orally Once a day for 90 days Active Tresiba FlexTouch 100 UNIT/ML inject 30 units Subcutaneous daily for 100 days Active Encounters Encounter Location Date Provider Diagnosis [facility] [address] [place] [address] 07/08/2023 Luis Henry Plan Of Treatment Medication Medication Name Sig Start Date Stop Date Notes Omeprazole 40 MG 1 capsule 30 minutes before morning meal Orally Once a day for 90 days Tresiba FlexTouch 100 UNIT/ML inject 30 units Subcutaneous daily for 100 days Progress Notes * RAINE FlorentinDOB: 9 (62 yo M)Acc No.[id number]:07/08/2023 Patient:?Florentin NI :1960???Age:62 Y???Sex:Male Address:[address] [place], [address] * Refills? Refill Tresiba FlexTouch Solution Pen-injector, 100 UNIT/ML, Subcutaneous, 30 Milliliter, inject 30 units, daily, 100 days, Refills=0 Refill Omeprazole Capsule Delayed Release, 40 MG, Orally, 90, 1 capsule 30 minutes before morning meal, Once a day, 90 days, Refills=0 * true * Date:? Generated for Anshu mckeon/Ledy/Fabiolaitting on:?09/27/2024 04:48 PM EDT
== END 2024-09-27 14:29 | disposition home or self-care (01) ==
LOC: HO.XRAY 14:28
PROVIDERS: PCP Family Medicine; Visit Provider Family Medicine
DX: M54.9 Dorsalgia, unspecified (principal)
CPT/HCPCS: 72100

== ENCOUNTER → 2024-09-27 14:34 | Outpatient (BNV) | payer OTHER, SELFPAY | PROVIDERS: PCP Family Medicine; Visit Provider Radiology Diagnostic Radiology | DX: M51.369 Other intervertebral disc degeneration, lumbar region without mention of lumbar back pain or lower extremity pain (principal) | CPT/HCPCS: 72100 ==

== ENCOUNTER 2024-10-12 10:47 | Outpatient (AMB) | payer MEDICARE, MEDICAID, SELFPAY ==
[2024-10-12 11:00] VITALS: BP 130/79; PULSE 75; RESP 16; O2SAT 98; BMI 26.5
--- NOTE | 2024-10-12 11:00 | MHC.OFFVIS ---
Vital Signs 10/12/24 11:00 Height 5 ft 9.75 in Weight 183 lb 2 oz BMI 26.5 BP 130/79 Blood Pressure Location Rt brachial Position Sitting Respiration 16 Pulse 75 Pulse Source Pulse Oximeter Pulse Oximetry (%) 98 Oxygen Delivery Method Room Air Intake Visit Reasons: Dorsalgia, unspecified Allergies No Known Allergies Allergy (Verified 10/12/24 11:03) HPI Comments Details: The patient is a 63-year-old male presenting with chronic low back pain due to severe degenerative disc disease at L5-S1 and lumbosacral spondylosis. His condition has affected him for approximately a decade, initiated by cumulative physical strain from his previous physically demanding roles. The pain is constant with severity ranging from 3/10 to 10/10 and primarily affects his lower back and left buttock. He associates the exacerbation with movement and morning activities, which lead to momentary leg instability. Past management with steroid back injections had been administered in [place], but recent attempts at pain relief have been limited to Tylenol and muscle relaxants, specifically Tizanidine. 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 Patient has completed multiple courses of physical therapy and tried chiropractic adjustments without significant benefit. He stays physically active and has been attending [facility] gym but had to stop exercising due to increased back pain with radicular symptoms. Denies previous spine surgery. Denies bladder or bowel dysfunction or saddle anesthesia. - Chronic onset approximately 10 years ago - Pain quality: Aching with sharp, intense episodes, stabbing, pinching, cramping, dull, sore, hurting - Primary location: Lower back - Radiation: Left buttock and left leg, occasionally on right leg, bilateral lateral hips - Intensity: Baseline 3/10, up to 10/10 during flare-ups - Aggravating factors: Sudden movement, morning activities, such as descending stairs, bending, flexing forward, twisting, heavy lifting, prolonged walking or standing - Alleviating factors: Sitting down during intense episodes - Activities impacted: Walking, descending stairs, general mobility, sleep - Affect: Reports managing pain well but refrains from verbalizing the extent to others - Analgesia: Frequent use of Tylenol; denies utilizing gabapentin or opioids in the past - Adverse Effects: None explicitly related to pain medications - Activities of Daily Living: Limited by pain; previously engaged in routine physical activity, now restricted - Aberrant Drug Related Behaviors: None reported; adheres to prescribed regimen Oswestry Low Back Pain Disability Score= 19 (moderate disability) [facility] Medical History (Updated 10/12/24 @ 12:07 by SAMANTHA Fofana) Smoker Insomnia Amputated toe of left foot Anemia Low testosterone Hyperlipidemia Hypertension Carotid atherosclerosis Erectile dysfunction associated with type 2 diabetes mellitus Lumbar degenerative disc disease Gall bladder disease Finding of floating rib Spine disorder Pacemaker Stroke Diabetes 1.5, managed as type 2 Surgical History History of appendectomy Social History Household Members: None Both parents involved: No Caregiver staying overnight: No Housing: Apartment Are you a primary medicare sales representative to a significant other at home: No Do you presently have visiting nurse or other home services: No 75 years or older and lives alone: No Alcohol intake: current Alcohol intake frequency: a few times a month Alcohol type: other Comment: single malt scotch Patient Tobacco Use Status: Current everyday Tobacco user Cigarette Packs Per Day: 1 Cigarettes Per Day: 20 e-Cigarette/Vaping Use: Never Used Substance Use Type: Marijuana Special yamilex needs: No service: No Current occupational status: retired Cognitive needs: No Hearing needs: No Vision needs: No Review of Systems Const Details: - Musculoskeletal: Reports chronic low back pain; denies muscle spasms - Neurological: Denies numbness or tingling; reports occasional instability and left buttock pain with intermittent lower leg radiation - Cardiovascular: Reports history of stroke; continues to smoke but initiates cessation plan - Endocrine: Reports well-controlled diabetes with recent A1c of 7.2 All systems reviewed & are unremarkable except as noted in HPI and below Physical Exam Vital Signs: Last Vital Signs Pulse 75 10/12/24 11:00 BP 130/79 10/12/24 11:00 Pulse Ox 98 10/12/24 11:00 Oxygen Delivery Method Room Air 10/12/24 11:00 BMI result Body Mass Index 26.5 General: Appears afebrile. Alert and oriented. Mood and affect appropriate. Follows and participates in conversation appropriately. Respiratory effort is unlabored. No cough. Able to transition from sit to stand unassisted. Ambulates with normal heel strike and toe off on the right. Left foot-h/o big toe, 2nd and 4th toe amputation. General: Yes no CVA tenderness Back/Spine/Pelvis Other: Patient is able to walk and stand on heels and tip toes with no difficulties demonstrating good motor tone. No limping. Can flex forward to 75-80 degrees and extend to 5-10 degrees before experiencing lumbar pain. Demonstrates 5/5 strength of quadriceps bilaterally as well as flexion/dorsiflexion of bilateral feet against resistance. 2+ pedal pulses bilaterally. Straight leg rise with dorsiflexion positive on the left. +Diminished on the left, +1 on the right patellar and diminished achilles reflexes bilaterally. Facet loading test positive bilaterally. Talib sign, Eder?s, Gaenslen, Pelvic compression and Stinchfield tests are positive bilaterally. No groin pain with I/E hip rotations. Mild to moderate TTP to bilateral GTB. Valsalva maneuver is negative. Back: no CVA tenderness Cervical Spine: normal cervical lordosis, cervical ROM normal, cervical muscular tenderness and Cervical spine tenderness Thoracic/Lumbar Spine: thoracic and lumbar spine normal to inspection, No Thoracic/lumbar spine scar(s), Lasegue's sign positive on the left and localized, pain with thoraco-lumbar ROM, paraspinal muscle tenderness, thoraco-lumbar ROM limited, No thoracic spinal tenderness and lumbar spinal tenderness (L4-S1) Pelvis: buttock tenderness on the left Sacroiliac joints: bilaterally tender to palpation Extrem General: Yes capillary refill normal, Yes no clubbing, cyanosis or edema, Yes no calf tenderness and Yes amputation noted (left big toe, 2nd and 4th toes) Results Reviewed Results Reviewed: XR LUMBAR SPINE 2-3 VIEWS 09/27/24 HISTORY: M54.9 - Dorsalgia, unspecified COMPARISON: There are no prior studies for comparison. FINDINGS: AP, lateral, and coned down views of the lumbar spine are submitted. Osseous mineralization is normal. Five nonrib-bearing lumbar vertebral bodies are identified, maintaining normal height and alignment without evidence of fracture or spondylolisthesis. There is severe degenerative disc disease at L5-S1, with disc space narrowing and osteophyte formation. The remaining intervertebral disc spaces are maintained. The posterior elements are intact. The visualized paraspinal soft tissues are unremarkable. IMPRESSION: Severe degenerative disc disease at L5-S1. Assessment & Plan Assessment & Plan (1) Back pain: Code(s): M54.9 - Dorsalgia, unspecified Category: Medical (2) Lumbar radiculopathy: Code(s): M54.16 - Radiculopathy, lumbar region Category: Medical (3) Lumbar degenerative disc disease: Code(s): M51.369 - Other intervertebral disc degeneration, lumbar region without mention of lumbar back pain or lower extremity pain Category: Medical (4) Bilateral hip pain: Code(s): M25.551 - Pain in right hip; M25.552 - Pain in left hip Category: Medical Plan An MRI of the lumbar spine is planned to better understand the extent of disc degeneration and potential nerve involvement, which may guide further intervention choices, including possible interventional pain management strategies. We will also obtain hip xrays to assess degree of arthritis and degenerative changes. Current pain management efforts have been insufficient, necessitating exploration of new therapies. Comorbid conditions such as diabetes and cardiovascular history are considered in planning to avoid complications. Patient takes Plavix and has pacemaker in place. Additionally, ongoing support for smoking cessation with Chantix is emphasized, given its potential to improve pain management efficacy and patient health. All questions and concerns have been answered and patient agreed with the plan. Follow-up for MRI/xray results and sooner as needed. Patient was informed and verbally consented to the use of an ambient scribe for clinic note documentation during this visit. Orders: Orders MR lumbar spine wo con Today M51.369 - Other intervertebral disc degeneration, lumbar region without mention of lumbar back pain or lower extremity pain, M54.16 - Radiculopathy, lumbar region, M54.9 - Dorsalgia, unspecified XR hip BI w PEL1V Today M25.551 - Pain in right hip, M25.552 - Pain in left hip Patient Instructions: During the visit, I discussed the degenerative nature of the patient's back pain, primarily at L5-S1, stressing the impact this has on daily activities. I outlined the importance of the upcoming MRI to pinpoint any compressive neuropathy or instability that may require surgical evaluation or a revised pain management plan. We explored pain management options, including potential therapeutic vs diagnostic injections, neuromodulation or ablation treatment, based on MRI results. I emphasized the significance of his current smoking cessation efforts and the benefits this may have on his overall condition and health outcomes. We agreed to continue working towards smoking cessation, considering precautions from his prior medical history and cardiovascular status. Patient understanding and commitment to following through with diagnostic procedures were confirmed, and arrangements for further follow-up were made to address radiological findings and to finalize the treatment plan. Coding Level of Care Code New Pt Level 4 (16891) Complex EM visit Add On G2211 Diagnoses Back pain M54.9 Lumbar radiculopathy M54.16 Lumbar degenerative disc disease M51.369 Bilateral hip pain M25.551; M25.552
--- OUTSIDE RECORDS SUMMARY | 2024-10-12 12:00 | XMS_ITS ---
Author Organization [facility] Address [address] [place] [address] Care Team Providers Care Yeast Supervisor Name Role Phone Freddie MANUEL, José Primary Care Provider Luis Pan [facility] [phone] REASON FOR VISIT Triseba Medications Medication SIG (Take, Route, Frequency, Duration) Notes Start Date End Date Status Omeprazole 40 MG 1 capsule 30 minutes before morning meal Orally Once a day for 90 days Active Tresiba FlexTouch 100 UNIT/ML inject 30 units Subcutaneous daily for 100 days Active Encounters Encounter Location Date Provider Diagnosis [facility] [address] [place] [address] 07/08/2023 Luis Henry Plan Of Treatment Medication Medication Name Sig Start Date Stop Date Notes Omeprazole 40 MG 1 capsule 30 minutes before morning meal Orally Once a day for 90 days Tresiba FlexTouch 100 UNIT/ML inject 30 units Subcutaneous daily for 100 days Progress Notes * RAINEZuleimaleanneDOB: 9 (62 yo M)Acc No.[id number]:07/08/2023 Patient:?Florentin NI :1960???Age:62 Y???Sex:Male Address:[address] [place], [address] * Refills? Refill Tresiba FlexTouch Solution Pen-injector, 100 UNIT/ML, Subcutaneous, 30 Milliliter, inject 30 units, daily, 100 days, Refills=0 Refill Omeprazole Capsule Delayed Release, 40 MG, Orally, 90, 1 capsule 30 minutes before morning meal, Once a day, 90 days, Refills=0 * true * Date:? Generated for Anshu mckeon/Ledy/Fabiolaitting on:?10/12/2024 12:00 PM EDT
--- OUTSIDE RECORDS SUMMARY | 2024-10-12 12:00 | XMS_ITS | Continuity of Care Document ---
Author Organization [facility] [address] [place] [address] Phone [phone] Problems Active Problems Provider Date Type 2 [...] Qnty Indications Order ing Provider Date Pen Mcfocxu86I X 4 mm Misc use one needle with insulin tacos, use three times a day 100units Mona Muhammad M.D. 08/16/2024 Mounjaro2.5mg/0.5ML Solution Auto-Inject inject 0.5ml injection subcutaneously weekly 2ml Mona Muhammad M.D. 08/16/2024 Humalog Topfign340Cmdf/ML Solution Pen-Inject inject 8 units subcutaneously before meals 30ml E11.21 Mona Muhammad M.D. 01/05/2024 Freestyle Dori 2/[place]/Flash Glucose Monitoring Zndmva2Hxpqfu Device use as directed with sensors 1units E11Agatha9 Mona Muhammad M.D. 09/20/2023 Freestyle Dori 2/Sensor/Flash Glucose Monitoring Wbpqmn2Sppxxy Misc 1 sensor to skin every fourteen days as directed dx: e11.9 3units E11Agatha9 Mona Muhammad M.D. 09/20/2023 Accu-Chek GuideStrips Unknown Aspirin 8181mg Tablets DR 1 by mouth every day Unknown Ketoconazole2% Cream Unknown Accu-Chek GuideStrips Unknown Huuicqm93ii Tablets Take 1 tablet by mouth daily 90tabs Mona Muhammad M.D. Tresiba Hmnyrnfrh119Whop/ML Solution Pen-Inject 30 units daily 30ml E11.21 Mona Muhammad M.D. Kswjxmdspv32ow Capsules DR Take 1 capsule by mouth daily 90caps Mona Muhammad M.D. Metformin VFL5983xs Tablets Take 1 tablet by mouth 2 times daily 180tabs Mona Muhammad M.D. Ztlido1.8% Patches 1 patch daily Unknown Tizanidine HCL4mg Tablets Take 1 Tablet By Mouth Three Times Daily 270tabs Mona Muhammad M.D. Rosuvastatin Hygjsvj88re Tablets Take 1 tablet by mouth daily Unknown Losartan Tshtiypjl71vr Tablets Take 1 tablet by mouth daily Unknown Trazodone MAT166ss Tablets Take 1 tablet by mouth at bedtime as needed Unknown History Medications Novolog Tfopkhi874Qply/ML Solution Pen-Inject inject 8 units every day [...] Lymphs (Absolute) 3.2 x10E3/uL High 0.7-3.1 Monocytes(Absol ione ) 1.1 x10E3/uL High 0.1-0.9 Eos (Absolute) [...] 09/17/2023 Inhouse Hemoglobin A1c 8.2% 1 Test(s) 825738-Xraaa terone was developed and its performance characteristics determined by [facility]. It has not been cleared or approved by the Food and Drug Administration. Test(s) 399194-Krqve Activity, Plasma was developed and its performance characteristics determined by [facility]. It has not been cleared or approved by the Food and Drug Administration. 2 Normal: 0 - 29 Moderately increased: 30 - 300 Severely increased: >300 Procedures Date Code Description Status 12/29/2023 66940 Glucose Monitoring Interpeta tion And Report Completed Medical Devices Description No Information Available Encounters Type Date Location Provider Dx Diagnosis Office Visit 08/16/2024 11:00a Main Office CHETAN Govea E11.9 Type 2 diabet es mellitus without complications Z79.4 jail (current) use of insulin E66.9 Obesity, unspecified Z68.38 Body mass index [BMI ] 38.0-38.9, adult Assessments Date Code Description Provider 08/16/2024 E11.9 Type 2 diabetes mellitus wit hout complications CHETAN Govea 08/16/2024 Z79.4 jail (current) use of i nsulin CHETAN Govea 08/16/2024 E66.9 Obesity, unspecified CHETAN Govea 08/16/2024 Z68.38 Body mass index [BMI] 38.0-3 8.9, adult CHETAN Govea Plan of Treatment Future Appointment(s):* 11/15/2024 11:15 am - CHETAN Govea at Main Office 08/16/2024 - CHETAN Govea* E11.9 Type 2 diabetes mellitus without complications * Z79.4 termite treater (current) use of insulin * E66.9 Obesity, unspecified * Z68.38 Body mass index [BMI] 38.0-38.9, adult * Functional Status Description No Information Available Mental Status Description No Information Available Referrals Refer to Reason for Referral Status Appt Oleg Lisa Zuniga DPM [facility] Closed [address] [place] [address] [phone]
--- OUTSIDE RECORDS SUMMARY | 2024-10-12 12:01 | XMS_ITS | Patient Health Record ---
Author Organization [facility] Address [address] [place] [address] Care Team Providers Care Speech Clinician Name Role Phone José Frazier MD Primary Care Provider Luis Pan Unavailable [phone] Reason For Referral No Information Medications Medication SIG (Take, Route, Frequency, Duration) Notes Start Date End Date Status Omeprazole 40 MG 1 capsule 30 minutes before morning meal Orally Once a day for 90 days Active Tresiba FlexTouch 100 UNIT/ML inject 30 units Subcutaneous daily for 100 days Active Pen Pocola 32G X 6 MM use with insulin [...] Status W/U Status Risk Notes Problem Hypercalcemia (43815685) Hypercalcemia (E83.52) Active confirmed Problem 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 mellitus (581822316) Type 2 diabetes mellitus with other diabetic neurological complication (E11.49) Active confirmed Problem Vitamin D deficiency (28034003) Vitamin D deficiency (E55.9) Active confirmed Problem Dyslipidemia (615451183) Dyslipidemia (E78.5) Active confirmed Problem Hyperglycemia due to type 2 diabetes mellitus (721104701438928) Type 2 diabetes mellitus with hyperglycemia (E11.65) Active confirmed Problem Essential hypertension (01258010) Essential (primary) hypertension (I10) Active confirmed Problem 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
== END 2024-10-12 11:31 | disposition home or self-care (01) ==
LOC: HO.PMC 10:48
PROVIDERS: PCP Family Medicine; Referring Provider Family Medicine; Visit Provider Nurse Practitioner Family
DX: M54.9 Dorsalgia, unspecified (principal); M54.16 Radiculopathy, lumbar region; M51.369 Other intervertebral disc degeneration, lumbar region without mention of lumbar back pain or lower extremity pain; M25.551 Pain in right hip; M25.552 Pain in left hip
CPT/HCPCS: 99204; G2211

== ENCOUNTER → 2024-10-12 10:47 | Outpatient (BNVA) | payer OTHER, SELFPAY | PROVIDERS: PCP Family Medicine; Referring Provider Family Medicine; Visit Provider Nurse Practitioner Family | DX: M54.9 Dorsalgia, unspecified (principal); M54.16 Radiculopathy, lumbar region; M51.369 Other intervertebral disc degeneration, lumbar region without mention of lumbar back pain or lower extremity pain; M25.551 Pain in right hip; M25.552 Pain in left hip | CPT/HCPCS: 99202 ==

== ENCOUNTER 2024-10-23 09:05 | Outpatient (AMB) | payer OTHER, SELFPAY ==
--- NOTE | 2024-10-23 09:02 | A.OFFPC_ITS ---
Intake Visit Reasons: f/u back pain via telemedicine - see comments Allergies No Known Allergies Allergy (Verified 10/23/24 09:02) Tobacco use date assessed: 02/07/24 Dental Screening Dental Screen Date: 02/07/24 [facility] Medical History (Updated 10/12/24 @ 12:07 by SAMANTHA Fofana) Smoker Insomnia Amputated toe of left foot Anemia Low testosterone Hyperlipidemia Hypertension Carotid atherosclerosis Erectile dysfunction associated with type 2 diabetes mellitus Lumbar degenerative disc disease Gall bladder disease Finding of floating rib Spine disorder Pacemaker Stroke Diabetes 1.5, managed as type 2 Surgical History History of appendectomy Social History Household Members: None Housing: Apartment Are you a primary healthcare receptionist to a significant other at home: No Do you presently have visiting nurse or other home services: No Alcohol intake: current Alcohol intake frequency: a few times a month Alcohol type: other Comment: single malt scotch Patient Tobacco Use Status: Current everyday Tobacco user Cigarette Packs Per Day: 1 Cigarettes Per Day: 20 e-Cigarette/Vaping Use: Never Used Substance Use Type: Marijuana Special yamilex needs: No service: No Current occupational status: retired Cognitive needs: No Hearing needs: No Vision needs: No Questionnaire Thrive Questionnaire Date Thrive assessed: 09/25/24 BELTRAN-7 AMB Questionnaire BELTRAN-7 Date BELTRAN - 7 assessed: 11/24/23 Source: Developed by Drs. Mega Teresa, Berenice Hardin, Rory Hewitt and colleagues, with an educational claudine from [employer] Physical exam (Primary Care) Tobacco/Smoking Status: Tobacco use Status Tobacco use date assessed 02/07/24 09/25/24 15:31 Patient Tobacco Use Status Current everyday Tobacco 09/25/24 15:31 e-Cigarette/Vaping Use Never Used 09/25/24 15:31 Thrive Assessment: Date of Thrive Assessment Date Thrive assessed 06/19/24 09/25/24 15:31 Telehealth Telehealth Telehealth Platform: Telephone Location of provider rendering services: practice address Location of patient: address on file Patient Identification confirmed using: Name, : Yes Telehealth method: voice only Patient verbally consented to treatment: Yes Patient verbally consented to billing insurance company: Yes Patient informed of any privacy concerns related to visit: Yes Coding
--- OUTSIDE RECORDS SUMMARY | 2024-10-23 09:58 | XMS_ITS | Continuity of Care Document ---
Author Organization [facility] [address] [facility] [address] [place] [address] Phone [phone] Problems Active Problems Provider Date Type 2 [...] Qnty Indications Order ing Provider Date Pen Dmnwyid17U X 4 mm Misc use one needle with insulin tacos, use three times a day 100units Mona Muhammad M.D. 08/16/2024 Mounjaro2.5mg/0.5ML Solution Auto-Inject inject 0.5ml injection subcutaneously weekly 2ml Mona Muhammad M.D. 08/16/2024 Humalog Anlvtrj508Fysg/ML Solution Pen-Inject inject 8 units subcutaneously before meals 30ml E11.21 Mona Muhammad M.D. 01/05/2024 Freestyle Dori 2/[place]/Flash Glucose Monitoring Nqyboz5Iocvjj Device use as directed with sensors 1units E11Agatha9 Mona Muhammad M.D. 09/20/2023 Freestyle Dori 2/Sensor/Flash Glucose Monitoring Cietcp8Znysux Misc 1 sensor to skin every fourteen days as directed dx: e11.9 3units E11.9 Mona Muhammad M.D. 09/20/2023 Accu-Chek GuideStrips Unknown Aspirin 8181mg Tablets DR 1 by mouth every day Unknown Ketoconazole2% Cream Unknown Accu-Chek GuideStrips Unknown Rhqmvpg79hz Tablets Take 1 tablet by mouth daily 90tabs Mona Muhammad M.D. Tresiba Ybbhpxtiw458Ntxz/ML Solution Pen-Inject 30 units daily 30ml E11.21 Mona Muhammad M.D. Ahpaiomqgc26ru Capsules DR Take 1 capsule by mouth daily 90caps Mona Muhammad M.D. Metformin RFZ1975cc Tablets Take 1 Tablet By Mouth Twice Daily 180tabs Mona Muhammad M.D. Ztlido1.8% Patches 1 patch daily Unknown Tizanidine HCL4mg Tablets Take 1 Tablet By Mouth Three Times Daily 270tabs Mona Muhammad M.D. Rosuvastatin Lchdtfg27wn Tablets Take 1 tablet by mouth daily Unknown Losartan Rlljukfnu24nz Tablets Take 1 tablet by mouth daily Unknown Trazodone LEX172xx Tablets Take 1 tablet by mouth at bedtime as needed Unknown History Medications Novolog Muvwwwy114Xhha/ML Solution Pen-Inject inject 8 units every day [...] Lymphs (Absolute) 3.2 x10E3/uL High 0.7-3.1 Monocytes(Absol [place] ) 1.1 x10E3/uL High 0.1-0.9 Eos (Absolute) [...] 09/17/2023 Inhouse Hemoglobin A1c 8.2% 1 Test(s) 405171-Kblzi terone was developed and its performance characteristics determined by [facility]. It has not been cleared or approved by the Food and Drug Administration. Test(s) 679777-Ezmci Activity, Plasma was developed and its performance characteristics determined by [facility]. It has not been cleared or approved by the Food and Drug Administration. 2 Normal: 0 - 29 Moderately increased: 30 - 300 Severely increased: >300 Procedures Date Code Description Status 12/29/2023 07057 Glucose Monitoring Interpeta tion And Report Completed Medical Devices Description No Information Available Encounters Type Date Location Provider Dx Diagnosis Office Visit 08/16/2024 11:00a Main Office CHETAN Govea E11.9 Type 2 diabet es mellitus without complications Z79.4 retirement (current) use of insulin E66.9 Obesity, unspecified Z68.38 Body mass index [BMI ] 38.0-38.9, adult Assessments Date Code Description Provider 08/16/2024 E11.9 Type 2 diabetes mellitus wit hout complications CHETAN Govea 08/16/2024 Z79.4 retirement (current) use of i nsulin CHETAN Govea 08/16/2024 E66.9 Obesity, unspecified CHETAN Govea 08/16/2024 Z68.38 Body mass index [BMI] 38.0-3 8.9, adult CHETAN Govea Plan of Treatment Future Appointment(s):* 11/15/2024 11:15 am - CHETAN Govea at Main Office 08/16/2024 - CHETAN Govea* E11.9 Type 2 diabetes mellitus without complications * Z79.4 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
--- OUTSIDE RECORDS SUMMARY | 2024-10-23 09:59 | XMS_ITS | Patient Health Record ---
Author Organization [facility] Address [address] [place] [address] Care Team Providers Care [facility] Director Name Role Phone José Frazier MD Primary Care Provider Luis Pan Unavailable [phone] Reason For Referral No Information Medications Medication SIG (Take, Route, Frequency, Duration) Notes Start Date End Date Status Omeprazole 40 MG 1 capsule 30 minutes before morning meal Orally Once a day for 90 days Active Tresiba FlexTouch 100 UNIT/ML inject 30 units Subcutaneous daily for 100 days Active Pen Mercer 32G X 6 MM use with insulin [...] Status W/U Status Risk Notes Problem Hypercalcemia (95146123) Hypercalcemia (E83.52) Active confirmed Problem 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 mellitus (825420379) Type 2 diabetes mellitus with other diabetic neurological complication (E11.49) Active confirmed Problem Vitamin D deficiency (29429357) Vitamin D deficiency (E55.9) Active confirmed Problem Dyslipidemia (669039210) Dyslipidemia (E78.5) Active confirmed Problem Hyperglycemia due to type 2 diabetes mellitus (830544392408378) Type 2 diabetes mellitus with hyperglycemia (E11.65) Active confirmed Problem Essential hypertension (39853647) Essential (primary) hypertension (I10) Active confirmed Problem Disorder of calcium metabolism (63928578) 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 Problem Abnormal result, function study of peripheral nervous system / special senses (798782258) Abnormal results of function studies of other [...] Insured Coverage Start Date Coverage End Date [facility] D[facility] COMPLETE PPO QMB [address] [address] [place] [address] [id number] QMB Florentin Ni Self - patient is the insured Medical (General) History Medical History History ICD Code Diabetes HTN Hyperlipidemia GERD Surgical History Surgery Date(Month/Year) Screws right ankle Toe amputation left foot Appendectomy 06/2020 Hospitalization History Reason Date(Month/Year) Appendectomy 06/2020
--- OUTSIDE RECORDS SUMMARY | 2024-10-23 09:59 | XMS_ITS ---
Author Organization [facility] Address [address] [place] [address] Care Team Providers Care Senior Hris Analyst Name Role Phone Freddie MANUEL, José Primary Care Provider Luis Pan [facility] [phone] REASON FOR VISIT Triseba Medications Medication SIG (Take, Route, Frequency, Duration) Notes Start Date End Date Status Omeprazole 40 MG 1 capsule 30 minutes before morning meal Orally Once a day for 90 days Active Tresiba FlexTouch 100 UNIT/ML inject 30 units Subcutaneous daily for 100 days Active Encounters Encounter Location Date Provider Diagnosis [facility] [address] [place] [address] 07/08/2023 Luis Henry Plan Of Treatment Medication Medication Name Sig Start Date Stop Date Notes Omeprazole 40 MG 1 capsule 30 minutes before morning meal Orally Once a day for 90 days Tresiba FlexTouch 100 UNIT/ML inject 30 units Subcutaneous daily for 100 days Progress Notes * RAINE FlorentinDOB: 9 (62 yo M)Acc No.[id number]:07/08/2023 Patient:?Florentin NI :1960???Age:62 Y???Sex:Male Address:[address] [place], [address] * Refills? Refill Tresiba FlexTouch Solution Pen-injector, 100 UNIT/ML, Subcutaneous, 30 Milliliter, inject 30 units, daily, 100 days, Refills=0 Refill Omeprazole Capsule Delayed Release, 40 MG, Orally, 90, 1 capsule 30 minutes before morning meal, Once a day, 90 days, Refills=0 * true * Date:? Generated for Anshu mckeon/Ledy/Fabiolaitting on:?10/23/2024 09:58 AM EDT
--- NOTE | 2024-10-23 14:51 | A.OFFPC_ITS ---
Intake Visit Reasons: f/u back pain via telemedicine - see comments Allergies No Known Allergies Allergy (Verified 10/23/24 09:02) Medication List - Last Reconciled 10/23/24 by Joao Stanford MD clopidogrel 75 mg PO DAILY 90 days dapagliflozin propanediol (Farxiga) 10 mg PO DAILY 90 days flash glucose sensor (FreeStyle Dori 2 Sensor kit) As directed glipizide ER 5 mg PO QAM 90 days insulin degludec (Tresiba FlexTouch U-100 insulin) 20 units subcut DAILY lidocaine 1.8% (ZTlido) 1 patch topical DAILY 30 days metformin 1,000 mg PO BID metoprolol succinate ER 100 mg PO BID metoprolol succinate ER 12.5 mg (1/2 x 25 mg) PO DAILY 90 days nicotine (Nicoderm CQ) 1 patch transdermal DAILY 28 days omeprazole 40 mg PO DAILY 90 days pen needle, diabetic (NovoFine Plus) As directed rosuvastatin 40 mg PO DAILY 90 days sacubitril-valsartan 24-26 mg (Entresto) 1 tab PO BID 90 days semaglutide (Rybelsus) 14 mg PO DAILY 90 days tadalafil (Cialis) 5 mg PO DAILY 90 days tadalafil (Cialis) 10 mg PO .PRN PRN 30 days tizanidine 4 mg PO BEDTIME PRN 30 days trazodone 100 mg PO DAILY 30 days Tobacco use date assessed: 02/07/24 Dental Screening Dental Screen Date: 02/07/24 HPI f/u back pain via telemedicine - see comments HPI Details Patient?presents?to?follow-up?lumbar?spine?x-ray?and?also?follow-up?diabetes. X-ray?showed?severe?degenerative?disc?disease?at?L5-S1 He?has?already?seen?pain?management?now?and?they?have?ordered?an?MRI. At?last?visit?his?A1c?was?7?point%. I?increased?his?glipizide?and?continued?his?other?medications. He?noted?that?some?of?his?evening?blood?sugars?were?around?180s ?but?by?morning?were?in?the?low?70s?and?had?a?couple?of?low?blood?sugars. He?says?he?has?decreased?his?Tresiba?and?he?is?now?having?blood?sugars?in?the?80 s?and?90s?to?low?100s?in?the?morning. [facility] Medical History (Updated 10/12/24 @ 12:07 by SAMANTHA Fofana) Smoker Insomnia Amputated toe of left foot Anemia Low testosterone Hyperlipidemia Hypertension Carotid atherosclerosis Erectile dysfunction associated with type 2 diabetes mellitus Lumbar degenerative disc disease Gall bladder disease Finding of floating rib Spine disorder Pacemaker Stroke Diabetes 1.5, managed as type 2 Surgical History History of appendectomy Social History Household Members: None Housing: Apartment Are you a primary continuum of care manager to a significant other at home: No Do you presently have visiting nurse or other home services: No Alcohol intake: current Alcohol intake frequency: a few times a month Alcohol type: other Comment: single malt [facility] Patient Tobacco Use Status: Current everyday Tobacco user Cigarette Packs Per Day: 1 Cigarettes Per Day: 20 e-Cigarette/Vaping Use: Never Used Substance Use Type: Marijuana Special yamilex needs: No service: No Current occupational status: retired Cognitive needs: No Hearing needs: No Vision needs: No Questionnaire Thrive Questionnaire Date Thrive assessed: 09/25/24 BELTRAN-7 AMB Questionnaire BELTRAN-7 Date BELTRAN - 7 assessed: 11/24/23 Source: Developed by Drs. Mega Teresa, Berenice Hardin, Rory Hewitt and colleagues, with an educational claudine from [employer]. Review of Systems Const Denies chills, Denies fatigue, Denies fever(s), Denies headache(s) and Denies weakness ENT Denies dizziness and Denies headache(s) Card Denies chest pain, Denies lightheadedness, Denies dyspnea and Denies other (Palpitations) Resp Denies cough, Denies dyspnea, Denies wheezing and Denies other ( shortness of breath) Musc Denies numbness and Denies tingling Neuro Denies dizziness, Denies headache(s), Denies numbness, Denies tingling, Denies paresthesias and Denies weakness Psych Denies anxiety and Denies depression Endo Denies fatigue Aller/Immun Denies wheezing Physical exam (Primary Care) Tobacco/Smoking Status: Tobacco use Status Tobacco use date assessed 02/07/24 10/23/24 14:52 Patient Tobacco Use Status Current everyday Tobacco 10/23/24 14:52 e-Cigarette/Vaping Use Never Used 10/23/24 14:52 Thrive Assessment: Date of Thrive Assessment Date Thrive assessed 09/25/24 10/23/24 14:52 Telehealth Telehealth Telehealth Platform: Telephone Location of provider rendering services: practice address Location of patient: address on file Patient Identification confirmed using: Name, : Yes Telehealth method: voice only Patient verbally consented to treatment: Yes Patient verbally consented to billing insurance company: Yes Patient informed of any privacy concerns related to visit: Yes Minutes spent on Phone/Video with Pt.: 6 Coding Level of Care Code Tele Est Pt Level 2 (52870) Diagnoses Back pain M54.9 Diabetes E11.9 Assessment & Plan Assessment & Plan (1) Back pain: Code(s): M54.9 - Dorsalgia, unspecified Category: Medical Plan: Ongoing?low?back?pain. X-rays?show?severe?L5-S1?degenerative?disc?disease He?is?now?followed?by?pain?management?and?they?have?MRI?scheduled Follow-up?with?pain?management?as?recommended (2) Diabetes: Code(s): E11.9 - Type 2 diabetes mellitus without complications Category: Medical Plan: Had?increased?glipizide?at?last?visit. Patient?says?he?is?also?adjusted?his?Tresiba?due?to?some?low?blood?sugars?overni ght/morning. He?says?while?sugars?are?now?well?controlled. Will?follow-up?again?about?3?months
== END 2024-10-23 17:05 | disposition home or self-care (01) ==
LOC: HO.HMCFM 09:05
PROVIDERS: PCP Family Medicine; Visit Provider Family Medicine
DX: M54.9 Dorsalgia, unspecified (principal); E11.9 Type 2 diabetes mellitus without complications

== ENCOUNTER → 2024-10-23 09:05 | Outpatient (BNVA) | payer OTHER, SELFPAY | PROVIDERS: PCP Family Medicine; Visit Provider Family Medicine ==

== ENCOUNTER 2024-10-23 11:02 | Outpatient (REF) | payer OTHER, SELFPAY ==
--- OUTSIDE RECORDS SUMMARY | 2024-10-23 13:05 | XMS_ITS | Continuity of Care Document ---
Author Organization [facility] [address] [facility] [address] [place] [address] Phone [phone] Problems Active Problems Provider Date Type 2 [...] Qnty Indications Order ing Provider Date Pen Jloxzzx91U X 4 mm Misc use one needle with insulin tacos, use three times a day 100units Mona Muhammad M.D. 08/16/2024 Mounjaro2.5mg/0.5ML Solution Auto-Inject inject 0.5ml injection subcutaneously weekly 2ml Mona Muhammad M.D. 08/16/2024 Humalog Quudhox595Ivra/ML Solution Pen-Inject inject 8 units subcutaneously before meals 30ml E11.21 Mona Muhammad M.D. 01/05/2024 Freestyle Dori 2/[place]/Flash Glucose Monitoring Lshiyr3Famucc Device use as directed with sensors 1units E11Agatha9 Mona Muhammad M.D. 09/20/2023 Freestyle Dori 2/Sensor/Flash Glucose Monitoring Rqolvw7Uoxtph Misc 1 sensor to skin every fourteen days as directed dx: e11.9 3units E11.9 Mona Muhammad M.D. 09/20/2023 Accu-Chek GuideStrips Unknown Aspirin 8181mg Tablets DR 1 by mouth every day Unknown Ketoconazole2% Cream Unknown Accu-Chek GuideStrips Unknown Xvegren26sx Tablets Take 1 tablet by mouth daily 90tabs Mona Muhammad M.D. Tresiba Tbuyxrpjc169Ewzm/ML Solution Pen-Inject 30 units daily 30ml E11.21 Mona Muhammad M.D. Rodhvtfkvp62zg Capsules DR Take 1 capsule by mouth daily 90caps Mona Muhammad M.D. Metformin MMB2673wi Tablets Take 1 Tablet By Mouth Twice Daily 180tabs Mona Muhammad M.D. Ztlido1.8% Patches 1 patch daily Unknown Tizanidine HCL4mg Tablets Take 1 Tablet By Mouth Three Times Daily 270tabs Mona Muhammad M.D. Rosuvastatin Guqdaji83qq Tablets Take 1 tablet by mouth daily Unknown Losartan Fxxanlnkg59vh Tablets Take 1 tablet by mouth daily Unknown Trazodone ICQ198jp Tablets Take 1 tablet by mouth at bedtime as needed Unknown History Medications Novolog Tzqgxwe946Ryhl/ML Solution Pen-Inject inject 8 units every day [...] Lymphs (Absolute) 3.2 x10E3/uL High 0.7-3.1 Monocytes(Absol [place] ) 1.1 x10E3/uL High 0.1-0.9 Eos (Absolute) [...] 09/17/2023 Inhouse Hemoglobin A1c 8.2% 1 Test(s) 949279-Korbv terone was developed and its performance characteristics determined by [facility]. It has not been cleared or approved by the Food and Drug Administration. Test(s) 976112-Pseaq Activity, Plasma was developed and its performance characteristics determined by [facility]. It has not been cleared or approved by the Food and Drug Administration. 2 Normal: 0 - 29 Moderately increased: 30 - 300 Severely increased: >300 Procedures Date Code Description Status 12/29/2023 31107 Glucose Monitoring Interpeta tion And Report Completed Medical Devices Description No Information Available Encounters Type Date Location Provider Dx Diagnosis Office Visit 08/16/2024 11:00a Main Office CHETAN Govea E11.9 Type 2 diabet es mellitus without complications Z79.4 correction (current) use of insulin E66.9 Obesity, unspecified Z68.38 Body mass index [BMI ] 38.0-38.9, adult Assessments Date Code Description Provider 08/16/2024 E11.9 Type 2 diabetes mellitus wit hout complications CHETAN Govea 08/16/2024 Z79.4 correction (current) use of i nsulin CHETAN Govea 08/16/2024 E66.9 Obesity, unspecified CHETAN Govea 08/16/2024 Z68.38 Body mass index [BMI] 38.0-3 8.9, adult CHETAN Govea Plan of Treatment Future Appointment(s):* 11/15/2024 11:15 am - CHETAN Govea at Main Office 08/16/2024 - CHETAN Govea* E11.9 Type 2 diabetes mellitus without complications * 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
[2024-10-23 15:06] LABS: Prostate Specific Antigen 0.73 ng/mL (<0.05-4.0)
== END 2024-10-23 11:03 | disposition home or self-care (01) ==
LOC: HO.WFDLDS 11:02
PROVIDERS: Visit Provider Nurse Practitioner Family
DX: N52.9 Male erectile dysfunction, unspecified (principal); Z12.5 Encounter for screening for malignant neoplasm of prostate
CPT/HCPCS: 36415; 84153

== ENCOUNTER 2024-10-26 12:11 | Outpatient (REF) | payer OTHER, SELFPAY ==
--- NOTE | ~2024-10-26 | XR_ITS ---
CLINICAL HISTORY: M25.551 - Pain in right hip 5 view, pelvis and right hip Comparison: None Findings: The bones are intact. No significant arthritic change. The soft tissues are unremarkable. There is regional arterial calcification. IMPRESSION: No acute findings. This document has been electronically signed by: Dane Gautam MD on 10/28/2024 08:51:31
--- OUTSIDE RECORDS SUMMARY | 2024-10-26 15:07 | XMS_ITS | Continuity of Care Document ---
Author Organization [facility] [address] [facility] [address] [place] [address] Phone [phone] Problems Active Problems Provider Date Type 2 [...] Qnty Indications Order ing Provider Date Pen Lurspuq14U X 4 mm Misc use one needle with insulin tacos, use three times a day 100units Mona Muhammad M.D. 08/16/2024 Mounjaro2.5mg/0.5ML Solution Auto-Inject inject 0.5ml injection subcutaneously weekly 2ml Mona Muhammad M.D. 08/16/2024 Humalog Dghtsmo128Zjvd/ML Solution Pen-Inject inject 8 units subcutaneously before meals 30ml E11.21 Mona Muhammad M.D. 01/05/2024 Freestyle Dori 2/[place]/Flash Glucose Monitoring Hkbjwb0Zjeyte Device use as directed with sensors 1units E11Agatha9 Mona Muhammad M.D. 09/20/2023 Freestyle Dori 2/Sensor/Flash Glucose Monitoring Xeagvt2Ywiwws Misc 1 sensor to skin every fourteen days as directed dx: e11.9 3units E11.9 Mona Muhammad M.D. 09/20/2023 Accu-Chek GuideStrips Unknown Aspirin 8181mg Tablets DR 1 by mouth every day Unknown Ketoconazole2% Cream Unknown Accu-Chek GuideStrips Unknown Urhfbil40dy Tablets Take 1 tablet by mouth daily 90tabs Mona Muhammad M.D. Tresiba Ngeqabogu810Radd/ML Solution Pen-Inject 30 units daily 30ml E11.21 Mona Muhammad M.D. Yvgosgljjl14ck Capsules DR Take 1 capsule by mouth daily 90caps Mona Muhammad M.D. Metformin XVI2602tu Tablets Take 1 Tablet By Mouth Twice Daily 180tabs Mona Muhammad M.D. Ztlido1.8% Patches 1 patch daily Unknown Tizanidine HCL4mg Tablets Take 1 Tablet By Mouth Three Times Daily 270tabs Mona Muhammad M.D. Rosuvastatin Avgugal86os Tablets Take 1 tablet by mouth daily Unknown Losartan Rgznrzyde22nv Tablets Take 1 tablet by mouth daily Unknown Trazodone BAA132en Tablets Take 1 tablet by mouth at bedtime as needed Unknown History Medications Novolog Aegoaup637Vfpj/ML Solution Pen-Inject inject 8 units every day [...] Lymphs (Absolute) 3.2 x10E3/uL High 0.7-3.1 Monocytes(Absol [place] ) 1.1 x10E3/uL High 0.1-0.9 Eos (Absolute) [...] 09/17/2023 Inhouse Hemoglobin A1c 8.2% 1 Test(s) 730187-Xmrdv terone was developed and its performance characteristics determined by [facility]. It has not been cleared or approved by the Food and Drug Administration. Test(s) 724087-Qfemk Activity, Plasma was developed and its performance characteristics determined by [facility]. It has not been cleared or approved by the Food and Drug Administration. 2 Normal: 0 - 29 Moderately increased: 30 - 300 Severely increased: >300 Procedures Date Code Description Status 12/29/2023 72922 Glucose Monitoring Interpeta tion And Report Completed Medical Devices Description No Information Available Encounters Type Date Location Provider Dx Diagnosis Office Visit 08/16/2024 11:00a Main Office CHETAN Govea E11.9 Type 2 diabet es mellitus without complications Z79.4 [facility] (current) use of insulin E66.9 Obesity, unspecified Z68.38 Body mass index [BMI ] 38.0-38.9, adult Assessments Date Code Description Provider 08/16/2024 E11.9 Type 2 diabetes mellitus wit hout complications CHETAN Govea 08/16/2024 Z79.4 [facility] (current) use of i nsulin CHETAN Govea 08/16/2024 E66.9 Obesity, unspecified CHETAN Govea 08/16/2024 Z68.38 Body mass index [BMI] 38.0-3 8.9, adult CHETAN Govea Plan of Treatment Future Appointment(s):* 11/15/2024 11:15 am - CHETAN Govea at Main Office 08/16/2024 - CHETAN Govea* E11.9 Type 2 diabetes mellitus without complications * 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
--- OUTSIDE RECORDS SUMMARY | 2024-10-26 15:07 | XMS_ITS ---
Author Organization [facility] Address [address] [place] [address] Care Team Providers Care Shells Inspector Name Role Phone Freddie MANUEL, José Primary Care Provider Luis Pan [facility] [phone] REASON FOR VISIT Triseba Medications Medication SIG (Take, Route, Frequency, Duration) Notes Start Date End Date Status Omeprazole 40 MG 1 capsule 30 minutes before morning meal Orally Once a day for 90 days Active Tresiba FlexTouch 100 UNIT/ML inject 30 units Subcutaneous daily for 100 days Active Encounters Encounter Location Date Provider Diagnosis [facility] [address] [place] [address] 07/08/2023 Luis Henry Plan Of Treatment Medication Medication Name Sig Start Date Stop Date Notes Omeprazole 40 MG 1 capsule 30 minutes before morning meal Orally Once a day for 90 days Tresiba FlexTouch 100 UNIT/ML inject 30 units Subcutaneous daily for 100 days Progress Notes * RAINE FlorentinDOB: 9 (62 yo M)Acc No.[id number]:07/08/2023 Patient:?Florentin NI :1960???Age:62 Y???Sex:Male Address:[address] [place], [address] * Refills? Refill Tresiba FlexTouch Solution Pen-injector, 100 UNIT/ML, Subcutaneous, 30 Milliliter, inject 30 units, daily, 100 days, Refills=0 Refill Omeprazole Capsule Delayed Release, 40 MG, Orally, 90, 1 capsule 30 minutes before morning meal, Once a day, 90 days, Refills=0 * true * Date:? Generated for Anshu mckeon/Ledy/Fabiolaitting on:?10/26/2024 03:07 PM EDT
--- OUTSIDE RECORDS SUMMARY | 2024-10-26 15:08 | XMS_ITS | Patient Health Record ---
Author Organization [facility] Address [address] [place] [address] Care Team Providers Care Solar Consultant Name Role Phone José Frazier MD Primary Care Provider Luis Pan Unavailable [phone] Reason For Referral No Information Medications Medication SIG (Take, Route, Frequency, Duration) Notes Start Date End Date Status Omeprazole 40 MG 1 capsule 30 minutes before morning meal Orally Once a day for 90 days Active Tresiba FlexTouch 100 UNIT/ML inject 30 units Subcutaneous daily for 100 days Active Pen [place] 32G X 6 MM use with insulin [...] Status W/U Status Risk Notes Problem Hypercalcemia (70429333) Hypercalcemia (E83.52) Active confirmed Problem 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 mellitus (568724234) Type 2 diabetes mellitus with other diabetic neurological complication (E11.49) Active confirmed Problem Vitamin D deficiency (01217977) Vitamin D deficiency (E55.9) Active confirmed Problem Dyslipidemia (962846690) Dyslipidemia (E78.5) Active confirmed Problem Hyperglycemia due to type 2 diabetes mellitus (786338891519828) Type 2 diabetes mellitus with hyperglycemia (E11.65) Active confirmed Problem Essential hypertension (12527779) Essential (primary) hypertension (I10) Active confirmed Problem Disorder of calcium metabolism (68485046) 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 Problem Abnormal result, function study of peripheral nervous system / special senses (948463326) Abnormal results of function studies of other [...] Coverage Start Date Coverage End Date [facility] DUAL COMPLETE PPO QMB [address] [address] [place] [address] [id number] QMB Florentin Ni Self - patient is the insured Medical (General) History Medical History History ICD Code Diabetes HTN Hyperlipidemia GERD Surgical History Surgery Date(Month/Year) Screws right ankle Toe amputation left foot Appendectomy 06/2020 Hospitalization History Reason Date(Month/Year) Appendectomy 06/2020
== END 2024-10-26 12:12 | disposition home or self-care (01) ==
LOC: HO.XRAY 12:11
PROVIDERS: PCP Family Medicine; Visit Provider Nurse Practitioner Family
DX: M25.551 Pain in right hip (principal); M25.552 Pain in left hip
CPT/HCPCS: 73521

== ENCOUNTER → 2024-10-26 12:23 | Outpatient (BNV) | payer OTHER, SELFPAY | PROVIDERS: PCP Family Medicine; Visit Provider Specialist | DX: M25.551 Pain in right hip (principal) | CPT/HCPCS: 73521 ==

== ENCOUNTER → 2024-11-09 09:34 | Outpatient (BNV) | payer OTHER, SELFPAY | PROVIDERS: PCP Family Medicine; Visit Provider Radiology Diagnostic Radiology | DX: M47.896 Other spondylosis, lumbar region (principal); M48.062 Spinal stenosis, lumbar region with neurogenic claudication | CPT/HCPCS: 72148 ==

== ENCOUNTER 2024-11-09 09:37 | Outpatient (REF) | payer OTHER, SELFPAY ==
--- NOTE | ~2024-11-09 | MR_ITS ---
EXAMINATION: MR LUMBAR SPINE WITHOUT CONTRAST CLINICAL INFORMATION: Dorsalgia, back pain, radiculopathy, degenerative disc disease. Right and left leg weakness. COMPARISON: No prior MRI. Plain films of the lumbar spine 09/27/2024. TECHNIQUE: Multiplanar multisequence MR imaging of the lumbar spine was done without IV contrast. Examination was performed on a 1.5 Adrianna Siemens magnet, utilizing standard sequences. FINDINGS: CORONAL ALIGNMENT: -Normal. SAGITTAL ALIGNMENT: - Normal. There is no subluxation. LUMBOSACRAL JUNCTION: -Normal. There are 5 gkr-wel-endqygn lumbar-type vertebral bodies. VERTEBRAL BODIES/BONE MARROW: -No compression deformities or acute fractures identified. -Marked edematous type endplate changes present L5-S1, with superimposed fatty type endplate change and Schmorl's node herniations. There is high signal in the L5-S1 disc. This is likely degenerative. DISCS: -Loss of disc signal without loss of disc height L4-5. -Severe loss of disc height and signal L5-S1, with high signal within the disc space, presumably degenerative. If there is concern for infection, early discitis/osteomyelitis is not excluded given the appearance. SPINAL CANAL: -No abnormal developmental findings. CONUS MEDULLARIS: -Terminates at L1. Morphology and signal is normal. INTRADURAL NERVE ROOTS: - Within normal limits. Axial Disc Space Images: T12-L1: No central canal or neural foraminal narrowing. Normal facets. L1-L2: No central canal or neural foraminal narrowing. Normal facets. L2-L3: No central canal or neural foraminal narrowing. Normal facets. L3-L4: Mild facet hypertrophy and degeneration. No central canal narrowing. There is mild bilateral neural foraminal narrowing. L4-L5: There is an irregular disc bulge present with central annular fissuring. This indents upon the ventral thecal sac, and coupled with mild to moderate hypertrophic degenerative facet changes, and mild posterior ligamentous thickening/infolding result in mild to moderate central canal stenosis. There is moderate left and mild right subarticular recess stenosis. There is contact and mild deviation of the traversing the left L5 nerve roots (series 10, image 24). There is moderate right and vsif-dp-cvgovslw left neural foraminal narrowing. L5-S1: Severe disc degeneration at this level. There is an irregular diffuse disc bulge present with annular fissuring and osteophytic components, slightly asymmetrically involving the right greater than left lateral recesses and neural foramen. Coupled with mild to moderate hypertrophic degenerative facet changes. There is mild central canal narrowing, mild bilateral subarticular recess narrowing without definite mass effect upon the traversing S1 roots. There is severe bilateral neural foraminal impingement with flattening and deformity of the exiting L5 nerve roots on both sides. IMAGED SI JOINTS: -Mild degenerative arthrosis bilaterally. PARAVERTEBRAL AND INCLUDED EXTRASPINAL SOFT TISSUES: -The aorta is normal in caliber. Grossly the retroperitoneal contents demonstrate no abnormalities within the confines of mild motion artifact. MR/MR lumbar spine wo con IMPRESSION: 1. Marked edematous endplate changes and disc degeneration at L5-S1, with high signal within the disc space, presumably degenerative. If there is concern for infection, discitis/osteomyelitis cannot be excluded given the imaging appearance. 2. Spondylosis relatively confined to L4-5 and L5-S1 as detailed above. There is severe bilateral neural foraminal impingement at L5-S1. 3. There is moderate left subarticular recess narrowing at L4-5 with contact and mild deviation of the traversing left L5 nerve roots. 4. See the body of the report for further detail. Electronically signed by: Musa Cota MD 11/09/2024 11:24 AM EDT
--- OUTSIDE RECORDS SUMMARY | 2024-11-09 10:38 | XMS_ITS | Continuity of Care Document ---
Author Organization [facility] [address] [place] [address] Phone [phone] Problems Active Problems Provider Date Type 2 [...] Qnty Indications Order ing Provider Date Pen Wiwfxfu16O X 4 mm Misc use one needle with insulin tacos, use three times a day 100units Mona Muhammad M.D. 08/16/2024 Mounjaro2.5mg/0.5ML Solution Auto-Inject inject 0.5ml injection subcutaneously weekly 2ml Mona Muhammad M.D. 08/16/2024 Humalog Jtdvinr969Tvgy/ML Solution Pen-Inject inject 8 units subcutaneously before meals 30ml E11.21 Mona Muhammad M.D. 01/05/2024 Freestyle Dori 2/[place]/Flash Glucose Monitoring Kzovon6Dpurmb Device use as directed with sensors 1units E11Agatha9 Mona Muhammad M.D. 09/20/2023 Freestyle Dori 2/Sensor/Flash Glucose Monitoring Jsptid8Udoyrb Misc 1 sensor to skin every fourteen days as directed dx: e11.9 3units E11.9 Mona Muhammad M.D. 09/20/2023 Accu-Chek GuideStrips Unknown Aspirin 8181mg Tablets DR 1 by mouth every day Unknown Ketoconazole2% Cream Unknown Accu-Chek GuideStrips Unknown Pkxrknm21lj Tablets Take 1 tablet by mouth daily 90tabs Mona Muhammad M.D. Tresiba Ddsujblpd638Qyfk/ML Solution Pen-Inject 30 units daily 30ml E11.21 Mona Muhammad M.D. Ufxgixscny72va Capsules DR Take 1 capsule by mouth daily 90caps Mona Muhammad M.D. Metformin YQJ5824eb Tablets Take 1 Tablet By Mouth Twice Daily 180tabs Mona Muhammad M.D. Ztlido1.8% Patches 1 patch daily Unknown Tizanidine HCL4mg Tablets Take 1 Tablet By Mouth Three Times Daily 270tabs Mona Muhammad M.D. Rosuvastatin Xhsxsxg85cn Tablets Take 1 tablet by mouth daily Unknown Losartan Bhduzmcif48av Tablets Take 1 tablet by mouth daily Unknown Trazodone LMP139wl Tablets Take 1 tablet by mouth at bedtime as needed Unknown History Medications Novolog Izvxqog151Sphn/ML Solution Pen-Inject inject 8 units every day [...] Lymphs (Absolute) 3.2 x10E3/uL High 0.7-3.1 Monocytes(Absol ramona ) 1.1 x10E3/uL High 0.1-0.9 Eos (Absolute) [...] 09/17/2023 Inhouse Hemoglobin A1c 8.2% 1 Test(s) 912227-Nnwgk terone was developed and its performance characteristics determined by [facility]. It has not been cleared or approved by the Food and Drug Administration. Test(s) 089760-Xvykf Activity, Plasma was developed and its performance characteristics determined by [facility]. It has not been cleared or approved by the Food and Drug Administration. 2 Normal: 0 - 29 Moderately increased: 30 - 300 Severely increased: >300 Procedures Date Code Description Status 12/29/2023 19722 Glucose Monitoring Interpeta tion And Report Completed Medical Devices Description No Information Available Encounters Type Date Location Provider Dx Diagnosis Office Visit 08/16/2024 11:00a Main Office CHETAN Govea E11.9 Type 2 diabet es mellitus without complications Z79.4 joint terminal attack controller (current) use of insulin E66.9 Obesity, unspecified Z68.38 Body mass index [BMI ] 38.0-38.9, adult Assessments Date Code Description Provider 08/16/2024 E11.9 Type 2 diabetes mellitus wit hout complications CHETAN Govea 08/16/2024 Z79.4 care home (current) use of i nsulin CHETAN Govea 08/16/2024 E66.9 Obesity, unspecified CHETAN Govea 08/16/2024 Z68.38 Body mass index [BMI] 38.0-3 8.9, adult CHETAN Govea Plan of Treatment Future Appointment(s):* 11/15/2024 11:15 am - CHETAN Govea at Main Office 08/16/2024 - CHETAN Govea* E11.9 Type 2 diabetes mellitus without complications * Z79.4 joint terminal attack controller (current) use of insulin * E66.9 Obesity, unspecified * Z68.38 Body mass index [BMI] 38.0-38.9, adult * Functional Status Description No Information Available Mental Status Description No Information Available Referrals Refer to Reason for Referral Status Appt Oleg e Lisa Huitron DPM [facility] Closed [address] [place] [phone]
--- OUTSIDE RECORDS SUMMARY | 2024-11-09 10:39 | XMS_ITS | Patient Health Record ---
Author Organization [facility] Address [address] [place] [address] Care Team Providers Care Pants Busheler Name Role Phone José Frazier MD Primary Care Provider Luis Pan Unavailable [phone] Reason For Referral No Information Medications Medication SIG (Take, Route, Frequency, Duration) Notes Start Date End Date Status Omeprazole 40 MG 1 capsule 30 minutes before morning meal Orally Once a day for 90 days Active Tresiba FlexTouch 100 UNIT/ML inject 30 units Subcutaneous daily for 100 days Active Pen [place] 32G X 6 MM use with insulin [...] Status W/U Status Risk Notes Problem Hypercalcemia (23069462) Hypercalcemia (E83.52) Active confirmed Problem 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 mellitus (162839767) Type 2 diabetes mellitus with other diabetic neurological complication (E11.49) Active confirmed Problem Vitamin D deficiency (49613197) Vitamin D deficiency (E55.9) Active confirmed Problem Dyslipidemia (067597707) Dyslipidemia (E78.5) Active confirmed Problem Hyperglycemia due to type 2 diabetes mellitus (907470596615356) Type 2 diabetes mellitus with hyperglycemia (E11.65) Active confirmed Problem Essential hypertension (50092378) Essential (primary) hypertension (I10) Active confirmed Problem 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 Problem Abnormal result, function study of peripheral nervous system / special senses (326660964) Abnormal results of function studies of other [...] Insured Coverage Start Date Coverage End Date [facility] DUAL COMPLETE PPO QMB [address] [address] [place] [address] [id number] QMB Florentin Ni Self - patient is the insured Medical (General) History Medical History History ICD Code Diabetes HTN Hyperlipidemia GERD Surgical History Surgery Date(Month/Year) Screws right ankle Toe amputation left foot Appendectomy 06/2020 Hospitalization History Reason Date(Month/Year) Appendectomy 06/2020
--- OUTSIDE RECORDS SUMMARY | 2024-11-09 10:39 | XMS_ITS ---
Author Organization [facility] Address [address] [place] [address] Care Team Providers Care Service Parts Coordinator Name Role Phone Freddie MANUEL, José Primary Care Provider Luis Pan [facility] [phone] REASON FOR VISIT Triseba Medications Medication SIG (Take, Route, Frequency, Duration) Notes Start Date End Date Status Omeprazole 40 MG 1 capsule 30 minutes before morning meal Orally Once a day for 90 days Active Tresiba FlexTouch 100 UNIT/ML inject 30 units Subcutaneous daily for 100 days Active Encounters Encounter Location Date Provider Diagnosis [facility] [address] [place] [address] 07/08/2023 Luis Henry Plan Of Treatment Medication Medication Name Sig Start Date Stop Date Notes Omeprazole 40 MG 1 capsule 30 minutes before morning meal Orally Once a day for 90 days Tresiba FlexTouch 100 UNIT/ML inject 30 units Subcutaneous daily for 100 days Progress Notes * RAINE FlorentinDOB: 9 (62 yo M)Acc No.[id number]:07/08/2023 Patient:?Florentin NI :1960???Age:62 Y???Sex:Male Address:[address] [place], [address] * Refills? Refill Tresiba FlexTouch Solution Pen-injector, 100 UNIT/ML, Subcutaneous, 30 Milliliter, inject 30 units, daily, 100 days, Refills=0 Refill Omeprazole Capsule Delayed Release, 40 MG, Orally, 90, 1 capsule 30 minutes before morning meal, Once a day, 90 days, Refills=0 * true * Date:? Generated for Anshu mckeon/Ledy/Fabiolaitting on:?11/09/2024 10:38 AM EDT
== END 2024-11-09 09:38 | disposition home or self-care (01) ==
LOC: HO.MRI 09:37
PROVIDERS: PCP Family Medicine; Visit Provider Nurse Practitioner Family
DX: M54.9 Dorsalgia, unspecified (principal); M54.16 Radiculopathy, lumbar region; M51.369 Other intervertebral disc degeneration, lumbar region without mention of lumbar back pain or lower extremity pain; E11.69 Type 2 diabetes mellitus with other specified complication; N52.1 Erectile dysfunction due to diseases classified elsewhere
CPT/HCPCS: 72148; 81003; 99212

== ENCOUNTER 2024-11-09 11:15 | Outpatient (AMB) | payer MEDICARE, MEDICAID, SELFPAY ==
--- NOTE | 2024-11-09 11:19 | A.OFFVIS_ITS ---
Intake Visit Reasons: 3m/PSA/Testo Intake Note: Patient presents today for follow up on: Erectile Dysfunction,Low testosterone, and lab results Testosterone: 602; Free Testosterone: 62.6 PSA: 0.73 Urology Medication: Tadalafil Antibiotic Allergies: None Blood Thinners: Clopidogrel (Patient stated he stopped taking 2 days ago) Half Backer Required: No Accompanied by: Self / Same As Patient Allergies No Known Allergies Allergy (Verified 11/09/24 11:23) HPI Comments Details: Florentin is a 63-year-old male patient of Dr. Stanford. He has a past medical history of nicotine dependence, type 2 diabetes, hypertension, hyperlipidemia, GERD, stroke, and pacemaker placement. He presents to the office today for follow-up. Of note, patient was seen approximately 3 months ago as a new patient for erectile dysfunction at which time labs were ordered for further assessment evaluation in the patient was started on daily dosing of tadalafil as well as p.r.n. dosing prior to sexual activity. In discussion with the patient today he reports noting significant improvement in being able to maintain his erections with daily dosing of tadalafil. He also reports having followed up with his PCP and has recently started smoking cessation and feels this has also been helpful. Recent labs were reviewed with the patient today as noted and trended below: Testosterone: 12/02 593, 09/05 602 Free testosterone: 12/02 74.7, 09/05 62.6 PSA: 11/03 0.7 He discusses suffering for ED for many years however has now recently been engaged with a partner. We discussed potential causes of erectile dysfunction as well as further treatment options and risks and benefits of these treatment options. He has a previous history of trialing Viagra that he did not find helpful. We discussed importance of management and diabetes for improvement in erectile dysfunction as well as overall health and well-being. We also discussed importance of limiting/quitting nicotine dependence in relation to erectile dysfunction as well as overall health and well-being. He otherwise denies any bothersome urinary issues. He denies urinary urgency, urinary frequency, incontinence, nocturia, hematuria, dysuria, foul smelling urine, changes to urinary stream, flank pain, fever, and or chills. He is happy with his current voiding parameters. SHANTEL offered however deferred. He otherwise offers no other issues or concerns at this time. [facility] Medical History Smoker Insomnia Amputated toe of left foot Anemia Low testosterone Hyperlipidemia Hypertension Carotid atherosclerosis Erectile dysfunction associated with type 2 diabetes mellitus Lumbar degenerative disc disease Gall bladder disease Finding of floating rib Spine disorder Pacemaker Stroke Diabetes 1.5, managed as type 2 Surgical History History of appendectomy Social History Household Members: None Both parents involved: No Caregiver staying overnight: No Housing: Apartment Are you a primary resident caregiver to a significant other at home: No Do you presently have visiting nurse or other home services: No 75 years or older and lives alone: No Alcohol intake: current Alcohol intake frequency: a few times a month Alcohol type: other Comment: single malt scotch Patient Tobacco Use Status: Current everyday Tobacco user Cigarette Packs Per Day: 1 Cigarettes Per Day: 20 e-Cigarette/Vaping Use: Never Used Substance Use Type: Marijuana Special yamilex needs: No service: No Current occupational status: retired Cognitive needs: No Hearing needs: No Vision needs: No Review of Systems Const All systems reviewed & are unremarkable except as noted in HPI and below Physical Exam Const General: cooperative, healthy appearing, comfortable, no acute distress, well developed, alert and awake Orientation/consciousness: patient oriented x3 Limitations: no limitations HEENT Head: Yes normal to inspection, Yes normocephalic and Yes atraumatic Ears: hearing grossly normal bilaterally Eyes General: appearance normal, both eyes and all related structures Neck Neck: Yes normal visual inspection and Yes trachea midline Chest Chest palpation & inspection: normal inspection of the chest Resp Effort & Inspection: normal respiratory effort and able to speak in complete sentences Cardio Rate: regular rate GI Inspection: Yes normal to inspection General: Yes no CVA tenderness Back/Spine/Pelvis Back: no CVA tenderness Skin General skin exam: no rashes or lesions noted Neuro General: patient oriented x3 Extrem General: Yes normal to inspection Psych Appearance: grossly normal and well kempt Mental Status: mental status grossly normal Speech and movement: Normal speech and movement present and Clear speech present Affect: normal affect Attitude: cooperative Thought process: Normal thought process present Thought content: Normal thought content present Insight: Fair insight present (Psych) Judgement: Fair judgement present (Psych) Results AMB Urinalysis, Automated UA Leukoctes 0 Marlin/uL Last Edit by [employer] on 11/09/24 11:35 UA Nitrite Last Edit by [employer] on 11/09/24 11:35 UA Urobilinogen 0.2 mg/dL Last Edit by [employer] on 11/09/24 11:35 UA Protein 0 mg/dL Last Edit by [employer] on 11/09/24 11:35 UA pH 7.0 Last Edit by [employer] on 11/09/24 11:35 UA Blood 0 Akhil/uL Last Edit by [employer] on 11/09/24 11:35 UA Specific Clayton 1.010 Last Edit by [employer] on 11/09/24 11:35 UA Ketone Last Edit by [employer] on 11/09/24 11:35 UA Bilirubin 0 mg/dL Last Edit by [employer] on 11/09/24 11:35 UA Glucose 500 mg/dL Last Edit by [employer] on 11/09/24 11:35 Results Reviewed Results Reviewed: Laboratory Last Values Urine pH (Auto) 7.0 11/09/24 11:24 Specific Clayton (Auto) 1.010 11/09/24 11:24 Urine Protein (Auto) 0 mg/dL 11/09/24 11:24 Glucose (UA)(Auto) 500 mg/dL 11/09/24 11:24 Urine Blood (Auto) 0 Akhil/uL 11/09/24 11:24 Urine Bilirubin (Auto) 0 mg/dL 11/09/24 11:24 Urine Urobilinogen (Auto) 0.2 mg/dL 11/09/24 11:24 Leukocyte Esterase (Auto) 0 Marlin/uL 11/09/24 11:24 Assessment & Plan Assessment & Plan (1) Erectile dysfunction associated with type 2 diabetes mellitus: Code(s): E11.69 - Type 2 diabetes mellitus with other specified complication; N52.1 - Erectile dysfunction due to diseases classified elsewhere Category: Medical Plan In office urinalysis results reviewed with the patient today; as noted above. Recent labs were reviewed with the patient today; as noted above. Patient reports be happy with his current voiding parameters. He currently denies any bothersome urinary issues or concerns. SHANTEL offered however deferred. Will continue with daily dosing of tadalafil as well as p.r.n. dosing; refills provided. We discussed importance of management and diabetes as well as limiting/quitting nicotine dependence in relation to urological concerns as well as overall health and well-being. Follow-up in 6 months; or sooner with any issues, concerns, and or questions. Orders: Orders AMB Urinalysis Automated Today Z13.9 - Encounter for screening, unspecified Medications: Refilled tadalafil (Cialis) [facility] [id number] 5 mg PO DAILY 90 days 90 tabs 3RF sexual activity tadalafil (Cialis) administer approximately 30min before sexual activity; do not use more than 1 dose per 24hrs [facility] [id number] 10 mg PO .PRN 30 days PRN 14 tabs 6RF sexual activity Patient Instructions: The patient had an opportunity to ask questions regarding the treatment plan. All questions were answered. Physical exam, labs, and imaging were discussed and reviewed in detail. As well as risks, benefits, and discussion of treatment choices. No major barriers to understanding were identified. The patient expressed understanding and agreement with the above treatment plan. The patient was made aware they should contact our office by phone for worsening of their current condition, the appearance of new symptoms, or with any questions or concerns. Compliance is encouraged with any medications and follow up testing that is ordered. It is a privilege to be allowed the opportunity to participate in? your urological care.? Again, if you have any questions or concerns If you have any questions or concerns please do not hesitate to contact me. The office is [phone]. This note is constructed using voice recognition software. While every effort has been made to ensure accuracy x ray equipment mechanic errors may have been included. Yours sincerely, Nina Dennis, CONTESTANT COORDINATOR-BC Coding Level of Care Code Est Pt Level 3 (57267) Complex EM visit Add On G2211 Diagnoses Erectile dysfunction associated with type 2 diabetes mellitus E11.69; N52.1
== END 2024-11-09 11:57 | disposition home or self-care (01) ==
LOC: HO.HUSH 11:16
PROVIDERS: PCP Family Medicine; Visit Provider Nurse Practitioner Family
DX: E11.69 Type 2 diabetes mellitus with other specified complication (principal); N52.1 Erectile dysfunction due to diseases classified elsewhere; Z13.9 Encounter for screening, unspecified
CPT/HCPCS: 99213; G2211

== ENCOUNTER 2024-11-16 10:20 | Outpatient (REF) | payer OTHER, SELFPAY ==
[2024-11-16 11:22] LABS: MANUAL DIFF FLAG NO
[2024-11-16 11:56] LABS: Basophils Absolute Auto 0.1 X10*3/uL (0.0-0.2); Eosinophils Absolute Auto 0.8 X10*3/uL (0.0-0.4); Eosinophils Percent Auto 7.6 % (0-4); Hematocrit 38.6 % (42.0-52.0); Hemoglobin 12.8 g/dl (14.0-18.0); Imm Gran Abs Auto 0.03 X10*3/uL (0.00-0.03); Imm Gran Pct Auto 0.3 % (0.0-0.4); Lymphocytes Absolute Auto 2.2 X10*3/uL (1.2-4.9); Lymphocytes Percent Auto 21.3 % (20-40); Mean Corpuscular HGB Conc 33.2 g/dl (31.0-36.0); Mean Corpuscular Hemoglobin 27.2 pg (27.0-33.0); Mean Platelet Volume 10.5 fL (9.4-12.4); Monocytes Absolute Auto 0.7 X10*3/uL (0.1-1.2); Monocytes Percent Auto 7.2 % (2-11); Neutrophils Absolute Auto 6.4 x10*3/uL (2.0-8.3); Neutrophils Percent Auto 62.6 % (45-73); Platelet Count 370 X10*3/uL (160-400); Red Blood Count 4.71 X10*6/uL (4.60-5.80); Red Cell Distribution Width 14.6 % (11.0-16.0); White Blood Count 10.2 X10*3/uL (4.8-10.8)
--- OUTSIDE RECORDS SUMMARY | 2024-11-16 12:29 | XMS_ITS | Continuity of Care Document ---
Author Organization [facility] [address] [place] [address] Phone [phone] Problems Active Problems Provider Date Type 2 [...] SIG Qnty Indications Order ing Provider Date Celaytgq8zm/0.5ML Solution Auto-Inject inject 5mg injection subcutaneously weekly 2ml Mona Muhammad M.D. 11/15/2024 Pen Qvddqey58S X 4 mm Misc use one needle with insulin tacos, use three times a day 100units Mona Muhammad M.D. 08/16/2024 Freestyle Dori 2/[place]/Flash Glucose Monitoring Rcxmua3Qkvhys Device use as directed with sensors 1units E11Agatha9 Mona Muhammad M.D. 09/20/2023 Freestyle Dori 2/Sensor/Flash Glucose Monitoring Xotkeo5Wlnwsp Misc 1 sensor to skin every fourteen days as directed dx: e11.9 3units E11Nakia Muhammad M.D. 09/20/2023 Metformin LTW4906yj Tablets Take 1 Tablet By Mouth Twice Daily 180tabs Mona Muhammad M.D. Aspirin 8181mg Tablets DR 1 by mouth every day Unknown 000 Ketoconazole2% Cream Unknown Accu-Chek GuideStrips Unknown Kunicar47ax Tablets Take 1 tablet by mouth daily 90tabs Mona Muhammad M.D. Tresiba Flhbytzfs132Xzhj/ML Solution Pen-Inject 15 units daily 30ml E11.21 Mona Muhammad M.D. Vzrqtdyiyr50dd Capsules DR Take 1 capsule by mouth daily 90caps Mona Muhammad M.D. Ztlido1.8% Patches 1 patch daily Unknown Accu-Chek GuideStrips Unknown Tizanidine HCL4mg Tablets Take 1 Tablet By Mouth Three Times Daily 270tabs Mona Muhammad M.D. Rosuvastatin Xsffnxz66fj Tablets Take 1 tablet by mouth daily Unknown Losartan Zsaaduyer46mp Tablets Take 1 tablet by mouth daily Unknown Trazodone EMI082ue Tablets Take 1 tablet by mouth at bedtime as needed Unknown History Medications Mounjaro2.5mg/0.5ML Solution Auto-Inject inject 0.5ml injection subcutaneously weekly 2ml Mona Muhammad M.D. 08/16/2024 - 11/15/2024 Humalog Lenestq478Lkaq/ML Solution Pen-Inject inject 8 units subcutaneously before meals 30ml E11.2 1 Mona Muhammad M.D. 01/05/2024 - 11/15/2024 Novolog Pfxkadh188Slbw/ML Solution Pen-Inject inject 8 units every day [...] Lymphs (Absolute) 3.2 x10E3/uL High 0.7-3.1 Monocytes(Absol soboba ) 1.1 x10E3/uL High 0.1-0.9 Eos (Absolute) [...] 09/17/2023 Inhouse Hemoglobin A1c 8.2% 1 Test(s) 956422-Bawsk terone was developed and its performance characteristics determined by [facility]. It has not been cleared or approved by the Food and Drug Administration. Test(s) 751892-Ewidn Activity, Plasma was developed and its performance characteristics determined by [facility]. It has not been cleared or approved by the Food and Drug Administration. 2 Normal: 0 - 29 Moderately increased: 30 - 300 Severely increased: >300 Procedures Date Code Description Status 12/29/2023 25743 Glucose Monitoring Interpeta tion And Report Completed Medical Devices Description No Information Available Encounters Type Date Location Provider Dx Diagnosis Office Visit 08/16/2024 11:00a Main Office CHETAN Govea E11.9 Type 2 diabet es mellitus without complications Z79.4 long-term (current) use of insulin E66.9 Obesity, unspecified Z68.38 Body mass index [BMI ] 38.0-38.9, adult Assessments Date Code Description Provider 11/15/2024 E11.9 Type 2 diabetes mellitus wit hout complications CHETAN Govea 11/15/2024 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 of i nsulin CHETAN Govea 11/15/2024 E66.9 Obesity, unspecified CHETAN Gvoea 11/15/2024 I10 Essential (primary) hyperten neno CHETAN Govea 11/15/2024 Z68.37 Body mass index [BMI] 37.0-3 7.9, adult CHETAN Govea 08/16/2024 E11.9 Type 2 diabetes mellitus wit hout complications CHETAN Govea 08/16/2024 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 of i nsulin CHETAN Govea 08/16/2024 E66.9 Obesity, unspecified HCETAN Govea 08/16/2024 Z68.38 Body mass index [BMI] 38.0-3 8.9, adult CHETAN Govea Plan of Treatment Future Appointment(s):* 02/15/2025 11:00 am - CHETAN Govea at Main Office 11/15/2024 - CHETAN Govea* E11.9 Type 2 diabetes mellitus without complications * Z79.4 long-term (current) use of insulin * E66.9 Obesity, unspecified * I10 Essential (primary) hypertension * Z68.37 Body mass index [BMI] 37.0-37.9, adult * Functional Status Description No Information Available Mental Status Description No Information Available Referrals Refer to Reason for Referral Status Appt Oleg Lisa Zuniga DPM [facility] Closed [address] [place] [address] [phone]
[2024-11-16 12:33] LABS: Erythrocyte Sedimentation Rate 7 MM/HR (0-15)
== END 2024-11-16 10:21 | disposition home or self-care (01) ==
LOC: HO.LAB 10:20
PROVIDERS: PCP Family Medicine; Visit Provider Nurse Practitioner Family
DX: M54.9 Dorsalgia, unspecified (principal); M54.16 Radiculopathy, lumbar region; M51.369 Other intervertebral disc degeneration, lumbar region without mention of lumbar back pain or lower extremity pain; M48.061 Spinal stenosis, lumbar region without neurogenic claudication; S61.451A Open bite of right hand, initial encounter; W54.0XXA Bitten by dog, initial encounter; Y93.9 Activity, unspecified; Y92.9 Unspecified place or not applicable; Y99.9 Unspecified external cause status
CPT/HCPCS: 36415; 85025; 85652; 87040; 99212

== ENCOUNTER 2024-11-16 10:20 | Outpatient (AMB) | payer OTHER, SELFPAY ==
[2024-11-16 10:26] VITALS: BP 127/60; PULSE 85; O2SAT 96; BMI 26.9
--- NOTE | 2024-11-16 10:26 | A.OFFVIS_ITS ---
Vital Signs 11/16/24 10:26 Height 5 ft 9.75 in Weight 186 lb BMI 26.9 BP 127/60 Blood Pressure Location Lt brachial Position Sitting Pulse 85 Pulse Source Pulse Oximeter Pulse Oximetry (%) 96 Oxygen Delivery Method Room Air Intake Visit Reasons: MRI follow up Intake Note: Pain today 12/19 Academic Administrator Required: No Accompanied by: Self / Same As Patient Allergies No Known Allergies Allergy (Verified 11/09/24 11:23) HPI Comments Details: Patient presents today for follow up to discuss recent lumbar spine MRI results. The back pain has progressively concentrated on the left side, radiating down the left leg and occasionally on the right. Low back is worse than leg pain per patient. This pain has been persistent and worsened in recent times, affecting the ability to walk, causing functional limitations in daily life activities like fishing. The patient denied any acute injury that initiated the back pain but has a history of physical strain and possible trauma from activities like football and tree climbing in his past. The patient underwent an MRI that identified severe stenosis of the L5-S1 disc with a significant herniation impacting nerve roots. The imaging raised concerns about potential infection, either discitis or osteomyelitis, which could not be ruled out. There is no history of similar infections or osteomyelitis reported, but has history of multiple left toe amputated in the past. Past also presents today with right hand healing abrasions with concern for erythema with yellow discoloration. He attributes this to recent dog bite which he notes was not a significant bite but rather he got scratched by dog's claws while playing. Patient denies follow up with his PCP or seeking evaluation and treatment in Urgent clinic or ER. I strongly urged him to go to ER for evaluation for this and follow up with PCP. PRIOR: The patient is a 63-year-old male presenting with chronic low back pain due to severe degenerative disc disease at L5-S1 and lumbosacral spondylosis. His condition has affected him for approximately a decade, initiated by cumulative physical strain from his previous physically demanding roles. The pain is constant with severity ranging from 3/10 to 10/10 and primarily affects his lower back and left buttock. He associates the exacerbation with movement and morning activities, which lead to momentary leg instability. Past management with steroid back injections had been administered in [place], but recent attempts at pain relief have been limited to Tylenol and muscle relaxants, specifically Tizanidine. 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 Patient has completed multiple courses of physical therapy and tried chiropractic adjustments without significant benefit. He stays physically active and has been attending [employer] gym but had to stop exercising due to increased back pain with radicular symptoms. Denies previous spine surgery. Denies bladder or bowel dysfunction or saddle anesthesia. - Chronic onset approximately 10 years ago - Pain quality: Aching with sharp, intense episodes, stabbing, pinching, cramping, dull, sore, hurting - Primary location: Lower back - Radiation: Left buttock and left leg, occasionally on right leg, bilateral lateral hips - Intensity: Baseline 3/10, up to 10/10 during flare-ups - Aggravating factors: Sudden movement, morning activities, such as descending stairs, bending, flexing forward, twisting, heavy lifting, prolonged walking or standing - Alleviating factors: Sitting down during intense episodes - Activities impacted: Walking, descending stairs, general mobility, sleep - Affect: Reports managing pain well but refrains from verbalizing the extent to others - Analgesia: Frequent use of Tylenol; denies utilizing gabapentin or opioids in the past - Adverse Effects: None explicitly related to pain medications - Activities of Daily Living: Limited by pain; previously engaged in routine physical activity, now restricted - Aberrant Drug Related Behaviors: None reported; adheres to prescribed regimen Oswestry Low Back Pain Disability Score= 19 (moderate disability) [facility] Medical History Smoker Insomnia Amputated toe of left foot Anemia Low testosterone Hyperlipidemia Hypertension Carotid atherosclerosis Erectile dysfunction associated with type 2 diabetes mellitus Lumbar degenerative disc disease Gall bladder disease Finding of floating rib Spine disorder Pacemaker Stroke Diabetes 1.5, managed as type 2 Surgical History History of appendectomy Social History Household Members: None Both parents involved: No Caregiver staying overnight: No Housing: Apartment Are you a primary social worker palliative care to a significant other at home: No Do you presently have visiting nurse or other home services: No 75 years or older and lives alone: No Alcohol intake: current Alcohol intake frequency: a few times a month Alcohol type: other Comment: single malt scotch Patient Tobacco Use Status: Current everyday Tobacco user Cigarette Packs Per Day: 1 Cigarettes Per Day: 20 e-Cigarette/Vaping Use: Never Used Substance Use Type: Marijuana Special yamilex needs: No service: No Current occupational status: retired Cognitive needs: No Hearing needs: No Vision needs: No Review of Systems Const All systems reviewed & are unremarkable except as noted in HPI and below Physical Exam Vital Signs: Last Vital Signs Pulse 85 11/16/24 10:26 BP 127/60 11/16/24 10:26 Pulse Ox 96 11/16/24 10:26 Oxygen Delivery Method Room Air 11/16/24 10:26 BMI result Body Mass Index 26.9 General: Appears afebrile. Alert and oriented. Mood and affect appropriate. Follows and participates in conversation appropriately. Respiratory effort is unlabored. No cough. Able to transition from sit to stand unassisted. Ambulates with normal heel strike and toe off on the right. Left foot-h/o big toe, 2nd and 4th toe amputation. General: Yes no CVA tenderness Back/Spine/Pelvis Other: Limited lumbar ROM due to pain. Antalgic gait, with flex forward positioning while walking or sitting. Lumbar flexion forward and bending reproduce moderate- severe pain, extension reproduces mild to moderate pain. Demonstrates 5/5 strength of quadriceps bilaterally as well as flexion/dorsiflexion of bilateral feet against resistance. 2+ pedal pulses bilaterally. Straight leg rise with dorsiflexion positive bilaterally. +Diminished on the left, +1 on the right patellar and diminished right, absent left achilles reflexes bilaterally. Facet loading test positive bilaterally. Talib sign, Eder?s, Gaenslen, Pelvic compression and Stinchfield tests are positive bilaterally. No groin pain with I/E hip rotations. Mild to moderate TTP to bilateral GTB. Valsalva maneuver is positive. Back: no CVA tenderness Cervical Spine: normal cervical lordosis, cervical ROM normal, cervical muscular tenderness and Cervical spine tenderness Thoracic/Lumbar Spine: thoracic and lumbar spine normal to inspection, No Thoracic/lumbar spine scar(s), Lasegue's sign positive (left>right) bilateral and localized, pain with thoraco-lumbar ROM, paraspinal muscle tenderness, thoraco-lumbar ROM limited, No thoracic spinal tenderness and lumbar spinal tenderness (L4-S1) Pelvis: buttock tenderness on the left Sacroiliac joints: bilaterally tender to palpation Skin Other: Several small abrasions noted right hand with mild erythema with yellow discoloration, no discharge. Extrem General: Yes capillary refill normal, Yes no clubbing, cyanosis or edema, Yes no calf tenderness and Yes amputation noted (left big toe, 2nd and 4th toes) Results Reviewed Results Reviewed: XR LUMBAR SPINE 2-3 VIEWS 09/27/24 HISTORY: M54.9 - Dorsalgia, unspecified COMPARISON: There are no prior studies for comparison. FINDINGS: AP, lateral, and coned down views of the lumbar spine are submitted. Osseous mineralization is normal. Five nonrib-bearing lumbar vertebral bodies are identified, maintaining normal height and alignment without evidence of fracture or spondylolisthesis. There is severe degenerative disc disease at L5-S1, with disc space narrowing and osteophyte formation. The remaining intervertebral disc spaces are maintained. The posterior elements are intact. The visualized paraspinal soft tissues are unremarkable. IMPRESSION: Severe degenerative disc disease at L5-S1. MR LUMBAR SPINE WITHOUT CONTRAST 11/09/24 CLINICAL INFORMATION: Dorsalgia, back pain, radiculopathy, degenerative disc disease. Right and left leg weakness. COMPARISON: No prior MRI. Plain films of the lumbar spine 09/27/2024. TECHNIQUE: Multiplanar multisequence MR imaging of the lumbar spine was done without IV contrast. Examination was performed on a 1.5 Adrianna Siemens magnet, utilizing standard sequences. FINDINGS: CORONAL ALIGNMENT: -Normal. SAGITTAL ALIGNMENT: - Normal. There is no subluxation. LUMBOSACRAL JUNCTION: -Normal. There are 5 buj-mdw-nhmvufe lumbar-type vertebral bodies. VERTEBRAL BODIES/BONE MARROW: -No compression deformities or acute fractures identified. -Marked edematous type endplate changes present L5-S1, with superimposed fatty type endplate change and Schmorl's node herniations. There is high signal in the L5-S1 disc. This is likely degenerative. DISCS: -Loss of disc signal without loss of disc height L4-5. -Severe loss of disc height and signal L5-S1, with high signal within the disc space, presumably degenerative. If there is concern for infection, early discitis/osteomyelitis is not excluded given the appearance. SPINAL CANAL: -No abnormal developmental findings. CONUS MEDULLARIS: -Terminates at L1. Morphology and signal is normal. INTRADURAL NERVE ROOTS: - Within normal limits. Axial Disc Space Images: T12-L1: No central canal or neural foraminal narrowing. Normal facets. L1-L2: No central canal or neural foraminal narrowing. Normal facets. L2-L3: No central canal or neural foraminal narrowing. Normal facets. L3-L4: Mild facet hypertrophy and degeneration. No central canal narrowing. There is mild bilateral neural foraminal narrowing. L4-L5: There is an irregular disc bulge present with central annular fissuring. This indents upon the ventral thecal sac, and coupled with mild to moderate hypertrophic degenerative facet changes, and mild posterior ligamentous thickening/infolding result in mild to moderate central canal stenosis. There is moderate left and mild right subarticular recess stenosis. There is contact and mild deviation of the traversing the left L5 nerve roots (series 10, image 24). There is moderate right and tymk-ch-idrauhhx left neural foraminal narrowing. L5-S1: Severe disc degeneration at this level. There is an irregular diffuse disc bulge present with annular fissuring and osteophytic components, slightly asymmetrically involving the right greater than left lateral recesses and neural foramen. Coupled with mild to moderate hypertrophic degenerative facet changes. There is mild central canal narrowing, mild bilateral subarticular recess narrowing without definite mass effect upon the traversing S1 roots. There is severe bilateral neural foraminal impingement with flattening and deformity of the exiting L5 nerve roots on both sides. IMAGED SI JOINTS: -Mild degenerative arthrosis bilaterally. PARAVERTEBRAL AND INCLUDED EXTRASPINAL SOFT TISSUES: -The aorta is normal in caliber. Grossly the retroperitoneal contents demonstrate no abnormalities within the confines of mild motion artifact. IMPRESSION: 1. Marked edematous endplate changes and disc degeneration at L5-S1, with high signal within the disc space, presumably degenerative. If there is concern for infection, discitis/osteomyelitis cannot be excluded given the imaging appearance. 2. Spondylosis relatively confined to L4-5 and L5-S1 as detailed above. There is severe bilateral neural foraminal impingement at L5-S1. 3. There is moderate left subarticular recess narrowing at L4-5 with contact and mild deviation of the traversing left L5 nerve roots. 4. See the body of the report for further detail. Assessment & Plan Assessment & Plan (1) Back pain: Code(s): M54.9 - Dorsalgia, unspecified Category: Medical (2) Lumbar radiculopathy: Code(s): M54.16 - Radiculopathy, lumbar region Category: Medical (3) Lumbar degenerative disc disease: Code(s): M51.369 - Other intervertebral disc degeneration, lumbar region without mention of lumbar back pain or lower extremity pain Category: Medical (4) Discitis of lumbosacral region: Code(s): M46.47 - Discitis, unspecified, lumbosacral region Category: Medical (5) Lumbar spinal stenosis: Code(s): M48.061 - Spinal stenosis, lumbar region without neurogenic claudication Category: Medical (6) Dog bite of right hand: Code(s): S61.451A - Open bite of right hand, initial encounter; W54.0XXA - Bitten by dog, initial encounter Category: Medical Plan Lumbar spine MRI results and imaging were reviewed with patient today. We will proceed with urgent Neurosurgery evaluation for concern of discitis and potentially osteomyelitis. Lab work ordered and patient verbalized agreement to complete labs immediately after today's visit. Patient is aware of potential necessity of initiating ID referral for antibiotic therapy if osteomyelitis confirmed. Patient was also urged to go to ER and follow up with PCP regarding recent dog bite of right hand. All questions and concerns have been answered and patient agreed with the plan. Follow up for lab reviews and sooner as needed. Patient was informed and verbally consented to the use of an ambient scribe for clinic note documentation during this visit. Orders: Orders Blood Culture X2 Today M46.47 - Discitis, unspecified, lumbosacral region, M51.369 - Other intervertebral disc degeneration, lumbar region without mention of lumbar back pain or lower extremity pain, M54.16 - Radiculopathy, lumbar region, M54.9 - Dorsalgia, unspecified Erythrocyte Sedimentation Rate Today M46.47 - Discitis, unspecified, lumbosacral region, M51.369 - Other intervertebral disc degeneration, lumbar region without mention of lumbar back pain or lower extremity pain, M54.16 - Radiculopathy, lumbar region, M54.9 - Dorsalgia, unspecified Complete Blood Count Auto Diff Today M46.47 - Discitis, unspecified, lumbosacral region, M51.369 - Other intervertebral disc degeneration, lumbar region without mention of lumbar back pain or lower extremity pain, M54.16 - Radiculopathy, lumbar region, M54.9 - Dorsalgia, unspecified Referrals Neuro Spine Referral M46.47 - Discitis, unspecified, lumbosacral region, M48.061 - Spinal stenosis, lumbar region without neurogenic claudication, M54.9 - Dorsalgia, unspecified Patient Instructions: I discussed with Florentni the implications of his MRI findings, emphasizing the possibility of discitis or osteomyelitis given the imaging changes observed at L5-S1. I explained the need for immediate blood work to detect any systemic infections and the necessity of consultation with a Neurosurgeon for further evaluation and possible surgical intervention if indicated. We also highlighted the urgency in addressing potential infections, outlining the necessity of antibiotics if confirmed by blood tests. We discussed in detail the rationale behind suggested interventions, including prospective pain management techniques such as Intracept if degenerative changes are primarily implicated without infectious pathology and no surgical candidacy offered. I stressed the importance of following up promptly with the suggested referrals and maintaining regular communication for monitoring results of pending investigations. Patient was also urged to seek medical evaluation in ER for recent right hand dog bite to rule out potential complications, including infection and determining the need for rabies prophylaxis. Coding Level of Care Code Est Pt Level 4 (64821) Complex EM visit Add On G2211 Diagnoses Back pain M54.9 Lumbar radiculopathy M54.16 Lumbar degenerative disc disease M51.369 Discitis of lumbosacral region M46.47 Lumbar spinal stenosis M48.061 Dog bite of right hand S61.451A; W54.0XXA
--- OUTSIDE RECORDS SUMMARY | 2024-11-16 11:34 | XMS_ITS | Continuity of Care Document ---
Author Organization [facility] [address] [place] [address] Phone [phone] Problems Active Problems Provider Date Type 2 [...] SIG Qnty Indications Order ing Provider Date Ebwrlqnl7ne/0.5ML Solution Auto-Inject inject 5mg injection subcutaneously weekly 2ml Mona Muhammad M.D. 11/15/2024 Pen Bolgglw87F X 4 mm Misc use one needle with insulin tacos, use three times a day 100units Mona Muhammad M.D. 08/16/2024 Freestyle Dori 2/[place]/Flash Glucose Monitoring Pllxqu0Cqpzeh Device use as directed with sensors 1units E11Agatha9 Mona Muhammad M.D. 09/20/2023 Freestyle Dori 2/Sensor/Flash Glucose Monitoring Wiiico9Hjwwqe Misc 1 sensor to skin every fourteen days as directed dx: e11.9 3units E11Nakia Muhammad M.D. 09/20/2023 Metformin NKI7157xl Tablets Take 1 Tablet By Mouth Twice Daily 180tabs Mona Muhammad M.D. Aspirin 8181mg Tablets DR 1 by mouth every day Unknown 000 Ketoconazole2% Cream Unknown Accu-Chek GuideStrips Unknown Rjoiyzx07sq Tablets Take 1 tablet by mouth daily 90tabs Mona Muhammad M.D. Tresiba Avdhxfgqt002Hwmn/ML Solution Pen-Inject 15 units daily 30ml E11.21 Mona Muhammad M.D. Nmmprfsauc68cg Capsules DR Take 1 capsule by mouth daily 90caps Mona Muhammad M.D. Ztlido1.8% Patches 1 patch daily Unknown Accu-Chek GuideStrips Unknown Tizanidine HCL4mg Tablets Take 1 Tablet By Mouth Three Times Daily 270tabs Mona Muhammad M.D. Rosuvastatin Vlnhsis20jy Tablets Take 1 tablet by mouth daily Unknown Losartan Ecncwootb37dc Tablets Take 1 tablet by mouth daily Unknown Trazodone UYG194qp Tablets Take 1 tablet by mouth at bedtime as needed Unknown History Medications Mounjaro2.5mg/0.5ML Solution Auto-Inject inject 0.5ml injection subcutaneously weekly 2ml Mona Muhammad M.D. 08/16/2024 - 11/15/2024 Humalog Kcbauup340Tmsh/ML Solution Pen-Inject inject 8 units subcutaneously before meals 30ml E11.2 1 Mona Muhammad M.D. 01/05/2024 - 11/15/2024 Novolog Zmwtuph308Vgqh/ML Solution Pen-Inject inject 8 units every day before dinner 30ml E11.2 1 Mona Muhammad M.D. 12/30/2023 - 01/05/2024 Vital Signs Date Vital Result Comment 11/15/2024 11:31am BP Systolic 126 mmHg BP Diastolic 62 mmHg Heart Rate 79 /min Height 59 inches 4'11 Weight 187.00 lb BMI (Body Mass Index) 37.8 kg/m2 Results Test Acquired Date Facility Test Result H/L Range N ote Hemoglobin A1c 11/15/2024 Inhouse Hemoglobin A1c 7.6% Glucose Fingerstick 11/15/2024 Inhouse Glucose Fingerstick 170 Glucose Fingerstick 08/16/2024 Inhouse Glucose Fingerstick 155 Hemoglobin A1c 08/16/2024 Inhouse Hemoglobin A1c 8.0% Glucose Fingerstick 04/20/2024 Inhouse Glucose Fingerstick 151 Hemoglobin A1c 04/20/2024 Inhouse Hemoglobin A1c 7.1 % Glucose Fingerstick 12/29/2023 Inhouse Glucose Fingerstick 133 Hemoglobin A1c 12/29/2023 Inhouse Hemoglobin A1c 8.2 Aldosterone LCMS, Serum 11/11/2023 [facility] Aldosterone LCMS, Serum 5.7 ng/dL 0.0-30.0 1 Renin Activity, Plasma 11/11/2023 [facility] Renin Activity, Plasma 1.916 ng/mL/hr 0.167-5.3 80 Glucose Fingerstick 10/28/2023 Inhouse Glucose Fingerstick 94 [...] Lymphs (Absolute) 3.2 x10E3/uL High 0.7-3.1 Monocytes(Absol hughes ) 1.1 x10E3/uL High 0.1-0.9 Eos (Absolute) [...] 09/17/2023 Inhouse Hemoglobin A1c 8.2% 1 Test(s) 599700-Likcr terone was developed and its performance characteristics determined by [facility]. It has not been cleared or approved by the Food and Drug Administration. Test(s) 435276-Vyytb Activity, Plasma was developed and its performance characteristics determined by [facility]. It has not been cleared or approved by the Food and Drug Administration. 2 Normal: 0 - 29 Moderately increased: 30 - 300 Severely increased: >300 Procedures Date Code Description Status 12/29/2023 73466 Glucose Monitoring Interpeta tion And Report Completed Medical Devices Description No Information Available Encounters Type Date Location Provider Dx Diagnosis Office Visit 08/16/2024 11:00a Main Office CHETAN Govea E11.9 Type 2 diabet es mellitus without complications Z79.4 intermediate (current) use of insulin E66.9 Obesity, unspecified Z68.38 Body mass index [BMI ] 38.0-38.9, adult Assessments Date Code Description Provider 11/15/2024 E11.9 Type 2 diabetes mellitus wit hout complications CHETAN Govea 11/15/2024 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 nsulin CHETAN Govea 11/15/2024 E66.9 Obesity, unspecified CHETAN Govea 11/15/2024 I10 Essential (primary) hyperten neno CHETAN Govea 11/15/2024 Z68.37 Body mass index [BMI] 37.0-3 7.9, adult CHETAN Govea 08/16/2024 E11.9 Type 2 diabetes mellitus wit hout complications CHETAN Govea 08/16/2024 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 nsulin CHETAN Govea 08/16/2024 E66.9 Obesity, unspecified CHETAN Govea 08/16/2024 Z68.38 Body mass index [BMI] 38.0-3 8.9, adult CHETAN Govea Plan of Treatment Future Appointment(s):* 02/15/2025 11:00 am - CHETAN Govea at Main Office 11/15/2024 - CHETAN Govea* E11.9 Type 2 diabetes mellitus without complications * Z79.4 intermediate (current) use of insulin * E66.9 Obesity, unspecified * I10 Essential (primary) hypertension * Z68.37 Body mass index [BMI] 37.0-37.9, adult * Functional Status Description No Information Available Mental Status Description No Information Available Referrals Refer to Reason for Referral Status Appt Oleg Lisa Zuniga DPM [facility] [address]osed [address] [place] [address] [phone]
--- OUTSIDE RECORDS SUMMARY | 2024-11-16 11:34 | XMS_ITS | Patient Health Record ---
Author Organization [facility] Address [address] [place] [address] Care Team Providers Care Collection Manager Name Role Phone José Frazier MD Primary Care Provider Luis aPn Unavailable [phone] Reason For Referral No Information Medications Medication SIG (Take, Route, Frequency, Duration) Notes Start Date End Date Status Omeprazole 40 MG 1 capsule 30 minutes before morning meal Orally Once a day for 90 days Active Tresiba FlexTouch 100 UNIT/ML inject 30 units Subcutaneous daily for 100 days Active Pen [place] 32G X 6 MM use with insulin [...] Status W/U Status Risk Notes Problem Hypercalcemia (24621868) Hypercalcemia (E83.52) Active confirmed Problem 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 mellitus (848390234) Type 2 diabetes mellitus with other diabetic neurological complication (E11.49) Active confirmed Problem Vitamin D deficiency (E55.9) Active confirmed Problem Dyslipidemia (143357321) Dyslipidemia (E78.5) Active confirmed Problem Hyperglycemia due to type 2 diabetes mellitus (304028866716815) Type 2 diabetes mellitus with hyperglycemia (E11.65) Active confirmed Problem Essential hypertension (12740975) Essential (primary) hypertension (I10) Active confirmed Problem 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 Problem Abnormal result, function study of peripheral nervous system / special senses (809784197) Abnormal results of function studies of other [...] Insured Coverage Start Date Coverage End Date [facility] [employer] [facility] [address] [address] [place] [address] [id number] QMB Florentin Ni Self - patient is the insured Medical (General) History Medical History History ICD Code Diabetes HTN Hyperlipidemia GERD Surgical History Surgery Date(Month/Year) Screws right ankle Toe amputation left foot Appendectomy 06/2020 Hospitalization History Reason Date(Month/Year) Appendectomy 06/2020
--- OUTSIDE RECORDS SUMMARY | 2024-11-16 11:34 | XMS_ITS ---
Author Organization [facility] Address [address] [place] [address] Care Team Providers Care Camelid Fiber Sorter Name Role Phone Freddie MANUEL, José Primary Care Provider Luis Pan [facility] [phone] REASON FOR VISIT Triseba Medications Medication SIG (Take, Route, Frequency, Duration) Notes Start Date End Date Status Omeprazole 40 MG 1 capsule 30 minutes before morning meal Orally Once a day for 90 days Active Tresiba FlexTouch 100 UNIT/ML inject 30 units Subcutaneous daily for 100 days Active Encounters Encounter Location Date Provider Diagnosis [facility] [address] [place] [address] 07/08/2023 Luis Henry Plan Of Treatment Medication Medication Name Sig Start Date Stop Date Notes Omeprazole 40 MG 1 capsule 30 minutes before morning meal Orally Once a day for 90 days Tresiba FlexTouch 100 UNIT/ML inject 30 units Subcutaneous daily for 100 days Progress Notes * RAINE FlorentinDOB: 9 (62 yo M)Acc No.[id number]:07/08/2023 Patient:?Florentin NI :1960???Age:62 Y???Sex:Male Address:[address] [place], [address] * Refills? Refill Tresiba FlexTouch Solution Pen-injector, 100 UNIT/ML, Subcutaneous, 30 Milliliter, inject 30 units, daily, 100 days, Refills=0 Refill Omeprazole Capsule Delayed Release, 40 MG, Orally, 90, 1 capsule 30 minutes before morning meal, Once a day, 90 days, Refills=0 * true * Date:? Generated for Anshu mckeon/Ledy/Fabiolaitting on:?11/16/2024 11:33 AM EDT
== END 2024-11-16 10:49 | disposition home or self-care (01) ==
LOC: HO.PMC 10:21
PROVIDERS: PCP Family Medicine; Visit Provider Nurse Practitioner Family
DX: M51.369 Other intervertebral disc degeneration, lumbar region without mention of lumbar back pain or lower extremity pain (principal); M48.061 Spinal stenosis, lumbar region without neurogenic claudication; S61.451A Open bite of right hand, initial encounter; W54.0XXA Bitten by dog, initial encounter
CPT/HCPCS: 99214; G2211

== ENCOUNTER 2024-11-24 09:13 | Outpatient (AMB) | payer OTHER, MEDICAID, SELFPAY ==
--- NOTE | 2024-11-24 09:19 | HO.SPINEOV ---
Vital Signs 11/24/24 09:33 Height 5 ft 7 in Weight 186 lb BMI 29.1 Intake Visit Reasons: LBP Intake Note: Mr. Ni is here today c/o left sided low back pain that radiates down to the left leg. Tank Washer Required: No Allergies No Known Allergies Allergy (Verified 11/24/24 09:34) Physical Exam Vital Signs: BMI result Body Mass Index 29.1 Assessment & Plan Assessment & Plan (1) Back pain: Code(s): M54.9 - Dorsalgia, unspecified Category: Medical Plan Dear Carol, Thank you for referring Mr Ni to our office today. He is a 63-year-old gentleman who has had chronic back pain for years, was living in [place] and treated with physical therapy as well as what sounds like facet blocks with some success. He comes in today to be evaluated for chronic low back pain in setting of an MRI showing degenerative disc disease at L5-S1. The radiologist also reports infectious process can not be ruled out. Patient tells me that he is in pain all day every day, does not matter of the position of the activity, he can even be in pain while he is at rest. Interestingly, he does not really take anything in the way of medications like Tylenol or Motrin. He generally just lives with it. He does not report any radicular symptoms. No tingling or numbness going down the legs, no bowel or bladder changes. PMH: He has been a diabetic for a long time, his A1c was 7.3, he is on insulin amongst other medications, history of hypertension, erectile dysfunction, carotid atherosclerosis, a lifelong smoker, history of stroke, screw fixation of his right ankle, appendectomy. Denies any history of coronary disease, pulmonary issues, liver disease, kidney disease, cancer, bleeding, blood clots or major abdominal surgery. Social hx: He smokes a pack a day, occasionally uses alcohol but denies any marijuana or recreational drugs Medications: He did not have a list with him today so I am using the [employer] list provided in the computer for record. This includes glipizide, insulin, metoprolol, metformin, nicotine patch, omeprazole, rosuvastatin, Entresto, semaglutide, Cialis, Mounjaro, tizanidine, trazodone and Varian cycling Allergies: None Physical exam: He can easily stand out of a chair, get up on the examining table without any obvious pain, strength and reflexes are normal. Imaging review: There is a lumbar MRI done at [facility] showing severe degenerative disc disease at L5-S1 with Modic type 1 endplate changes with some hyperintensity in the disc as well. No significant central canal stenosis. There is some very mild degeneration at L4-5 but nothing meaningful. Impression: 63-year-old male with chronic centralized low back pain for many years, constantly in pain throughout the day, has been through conservative management including injections, physical therapy etc.. He has a severely degenerative disc at L5-S1 with Modic endplate changes. This certainly could explain some of his pain, however as I explained to him these findings can also be found incidentally in asymptomatic patients as well. Interestingly, the pain is not bad enough for him to have to take any consistent amount of anti-inflammatories or Tylenol, so I recommended he try this as long as his liver and kidney functions are okay. I explained to him that typically this is something Dr. Myers would offer surgery, usually it is an anterior lumbar interbody fusion, with success rate at about 60-70%. He was not too excited about the success rates. He is considering trying more injections and I told him if that is the case he should contact your office. We also discussed the fact that there was some mention of possible diskitis in the differential for his MRI diagnosis. I did show this to Dr. Myers who did not feel strongly that it looked consistent with diskitis/osteomyelitis. Also, his lab work shows normal white count, ESR in his blood cultures are negative. If he develops fever chills etc. I told him he should go to the emergency room. The patient is going to come back and see me in 3 months and re-evaluate and think about his options. Thank you for allowing us to care for your patient. The total time spent with this visit with this patient was 45 minutes reviewing history, physical exam, lumbar imaging review, and implementation of treatment plan or further diagnostic testing Saqib Myers MD,PhD [facility] [place] Coding Level of Care Code New Pt Level 4 (93995) Diagnoses Back pain M54.9
--- OUTSIDE RECORDS SUMMARY | 2024-11-24 09:26 | XMS_ITS | Patient Health Record ---
Author Organization [facility] Address [address] [place] [address] Care Team Providers Care Slubber Hand Name Role Phone José Frazier MD Primary Care Provider Lius Pan Unavailable [phone] Allergies No Known Allergies Reason For Referral No Information Medications Medication SIG (Take, Route, Frequency, Duration) Notes Start Date End Date Status Omeprazole 40 MG 1 capsule 30 minutes before morning meal Orally Once a day for 90 days Active Tresiba FlexTouch 100 UNIT/ML inject 30 units Subcutaneous daily for 100 days Active Pen [place] 32G X 6 MM use with insulin [...] Status W/U Status Risk Notes Problem Hypercalcemia (49813154) Hypercalcemia (E83.52) Active confirmed Problem 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 mellitus (183810569) Type 2 diabetes mellitus with other diabetic neurological complication (E11.49) Active confirmed Problem Vitamin D deficiency (63436641) Vitamin D deficiency (E55.9) Active confirmed Problem Dyslipidemia (381799829) Dyslipidemia (E78.5) Active confirmed Problem Hyperglycemia due to type 2 diabetes mellitus (105664810830254) Type 2 diabetes mellitus with hyperglycemia (E11.65) Active confirmed Problem Essential hypertension (00868539) Essential (primary) hypertension (I10) Active confirmed Problem 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 Problem Abnormal result, function study of peripheral nervous system / special senses (054623187) Abnormal results of function studies of other [...] Coverage Start Date Coverage End Date [facility] [employer] PPO [employer] [address] [address] [place] [address] [id number] QMB Florentin Ni Self - patient is the insured Medical (General) History Medical History History ICD Code Diabetes HTN Hyperlipidemia GERD Surgical History Surgery Date(Month/Year) Screws right ankle Toe amputation left foot Appendectomy 06/2020 Hospitalization History Reason Date(Month/Year) Appendectomy 06/2020
--- OUTSIDE RECORDS SUMMARY | 2024-11-24 09:26 | XMS_ITS | Continuity of Care Document ---
Author Organization [facility] [address] [place] [address] Phone [phone] Problems Active Problems Provider Date Type 2 [...] SIG Qnty Indications Order ing Provider Date Lhldktiz1da/0.5ML Solution Auto-Inject inject 5mg injection subcutaneously weekly 2ml Mona Muhammad M.D. 11/15/2024 Pen Uauyzjj79V X 4 mm Misc use one needle with insulin tacos, use three times a day 100units Mona Muhammad M.D. 08/16/2024 Freestyle Dori 2/[place]/Flash Glucose Monitoring Dkzwqp9Xlqnqs Device use as directed with sensors 1units E11Agatha9 Mona Muhammad M.D. 09/20/2023 Freestyle Dori 2/Sensor/Flash Glucose Monitoring Zuiqkp8Zvmwxf Misc 1 sensor to skin every fourteen days as directed dx: e11.9 3units E11Nakia Muhammad M.D. 09/20/2023 Metformin XOS0908es Tablets Take 1 Tablet By Mouth Twice Daily 180tabs Mona Muhammad M.D. Aspirin 8181mg Tablets DR 1 by mouth every day Unknown 000 Ketoconazole2% Cream Unknown Accu-Chek GuideStrips Unknown Ngprshp78ig Tablets Take 1 tablet by mouth daily 90tabs Mona Muhammad M.D. Tresiba Bmhbtpdaa873Mkri/ML Solution Pen-Inject 15 units daily 30ml E11.21 Mona Muhammad M.D. Cocbsnkhbi86ue Capsules DR Take 1 capsule by mouth daily 90caps Mona Muhammad M.D. Ztlido1.8% Patches 1 patch daily Unknown Accu-Chek GuideStrips Unknown Tizanidine HCL4mg Tablets Take 1 Tablet By Mouth Three Times Daily 270tabs Mona Muhammad M.D. Rosuvastatin Tosmthx21yb Tablets Take 1 tablet by mouth daily Unknown Losartan Bxxepsseg58mt Tablets Take 1 tablet by mouth daily Unknown Trazodone PZG362pw Tablets Take 1 tablet by mouth at bedtime as needed Unknown History Medications Mounjaro2.5mg/0.5ML Solution Auto-Inject inject 0.5ml injection subcutaneously weekly 2ml Mona Muhammad M.D. 08/16/2024 - 11/15/2024 Humalog Pptyhjf834Utqx/ML Solution Pen-Inject inject 8 units subcutaneously before meals 30ml E11.2 1 Mona Muhammad M.D. 01/05/2024 - 11/15/2024 Novolog Repjrtm953Hcxn/ML Solution Pen-Inject inject 8 units every day [...] Lymphs (Absolute) 3.2 x10E3/uL High 0.7-3.1 Monocytes(Absol [place] ) 1.1 x10E3/uL High 0.1-0.9 Eos (Absolute) [...] 09/17/2023 Inhouse Hemoglobin A1c 8.2% 1 Test(s) 622559-Sheze terone was developed and its performance characteristics determined by [facility]. It has not been cleared or approved by the Food and Drug Administration. Test(s) 589483-Djhuq Activity, Plasma was developed and its performance characteristics determined by [facility]. It has not been cleared or approved by the Food and Drug Administration. 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 E66.9 Obesity, unspecified Z68.38 Body mass index [BMI ] 38.0-38.9, adult Assessments Date Code Description Provider 11/15/2024 E11.9 Type 2 diabetes mellitus wit hout complications CHETAN Govea 11/15/2024 Z79.4 senior care (current) use of i nsulin CHETAN Govea 11/15/2024 E66.9 Obesity, unspecified CHETAN Govea 11/15/2024 I10 Essential (primary) hyperten neno CHETAN Govea 11/15/2024 Z68.37 Body mass index [BMI] 37.0-3 7.9, adult CHETAN Govea 08/16/2024 E11.9 Type 2 diabetes mellitus wit hout complications CHETAN Govea 08/16/2024 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.4 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 (current) use of i nsulin CHETAN Govea 08/16/2024 E66.9 Obesity, unspecified CHETAN Govea 08/16/2024 Z68.38 Body mass index [BMI] 38.0-3 8.9, adult CHETAN Govea Plan of Treatment Future Appointment(s):* 02/15/2025 11:00 am - CHETAN Govea at Main Office 11/15/2024 - CHETAN Govea* E11.9 Type 2 diabetes mellitus without complications * Z79.4 senior care (current) use of insulin * E66.9 Obesity, unspecified * I10 Essential (primary) hypertension * Z68.37 Body mass index [BMI] 37.0-37.9, adult * Functional Status Description No Information Available Mental Status Description No Information Available Referrals Refer to Reason for Referral Status Appt Oleg Lisa Zuniga DPM [facility] Closed [address] [place] [address] [phone]
[2024-11-24 09:33] VITALS: BMI 29.1
== END 2024-11-24 10:10 | disposition home or self-care (01) ==
PROVIDERS: PCP Family Medicine; Referring Provider Nurse Practitioner Family; Visit Provider Physician Assistant
DX: M54.9 Dorsalgia, unspecified (principal)
CPT/HCPCS: 99204

== ENCOUNTER → 2024-11-24 09:13 | Outpatient (BNVA) | payer OTHER, SELFPAY | PROVIDERS: PCP Family Medicine; Referring Provider Nurse Practitioner Family; Visit Provider Physician Assistant | DX: M54.9 Dorsalgia, unspecified (principal) | CPT/HCPCS: 99202 ==

== ENCOUNTER 2024-12-05 10:52 | Outpatient (AMB) | payer OTHER, MEDICAID, SELFPAY ==
--- NOTE | 2024-12-05 10:53 | MHC.OFFVIS ---
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 Previous back injections were administered three to four years ago while residing in [place]. The current back pain is compounded by an anticipated move due to his residence's impending sale. Although an anterior lumbar interbody fusion surgery has been considered at [facility] with a 60-70% success rate, the patient seeks alternative treatments first, including epidural steroid injections and possibly Intracept, contingent on the efficacy and duration of symptom relief. He denies any infection-related complications, his recent lab work (WBC, ESR) and blood cultures returned normal. PRIOR: Patient presents today for follow up to discuss recent lumbar spine MRI results. The back pain has progressively concentrated on the left side, radiating down the left leg and occasionally on the right. Low back is worse than leg pain per patient. This pain has been persistent and worsened in recent times, affecting the ability to walk, causing functional limitations in daily life activities like fishing. The patient denied any acute injury that initiated the back pain but has a history of physical strain and possible trauma from activities like football and tree climbing in his past. The patient underwent an MRI that identified severe stenosis of the L5-S1 disc with a significant herniation impacting nerve roots. The imaging raised concerns about potential infection, either discitis or osteomyelitis, which could not be ruled out. There is no history of similar infections or osteomyelitis reported, but has history of multiple left toe amputated in the past. Past also presents today with right hand healing abrasions with concern for erythema with yellow discoloration. He attributes this to recent dog bite which he notes was not a significant bite but rather he got scratched by dog's claws while playing. Patient denies follow up with his PCP or seeking evaluation and treatment in Urgent clinic or ER. I strongly urged him to go to ER for evaluation for this and follow up with PCP. PRIOR: The patient is a 63-year-old male presenting with chronic low back pain due to severe degenerative disc disease at L5-S1 and lumbosacral spondylosis. His condition has affected him for approximately a decade, initiated by cumulative physical strain from his previous physically demanding roles. The pain is constant with severity ranging from 3/10 to 10/10 and primarily affects his lower back and left buttock. He associates the exacerbation with movement and morning activities, which lead to momentary leg instability. Past management with steroid back injections had been administered in [place], but recent attempts at pain relief have been limited to Tylenol and muscle relaxants, specifically Tizanidine. 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 Patient has completed multiple courses of physical therapy and tried chiropractic adjustments without significant benefit. He stays physically active and has been attending [facility] gym but had to stop exercising due to increased back pain with radicular symptoms. Denies previous spine surgery. Denies bladder or bowel dysfunction or saddle anesthesia. - Chronic onset approximately 10 years ago - Pain quality: Aching with sharp, intense episodes, stabbing, pinching, cramping, dull, sore, hurting - Primary location: Lower back - Radiation: Left buttock and left leg, occasionally on right leg, bilateral lateral hips - Intensity: Baseline 3/10, up to 10/10 during flare-ups - Aggravating factors: Sudden movement, morning activities, such as descending stairs, bending, flexing forward, twisting, heavy lifting, prolonged walking or standing - Alleviating factors: Sitting down during intense episodes - Activities impacted: Walking, descending stairs, general mobility, sleep - Affect: Reports managing pain well but refrains from verbalizing the extent to others - Analgesia: Frequent use of Tylenol; denies utilizing gabapentin or opioids in the past - Adverse Effects: None explicitly related to pain medications - Activities of Daily Living: Limited by pain; previously engaged in routine physical activity, now restricted - Aberrant Drug Related Behaviors: None reported; adheres to prescribed regimen Oswestry Low Back Pain Disability Score= 19 (moderate disability) [facility] Medical History Back pain Smoker Insomnia Amputated toe of left foot Anemia Low testosterone Hyperlipidemia Hypertension Carotid atherosclerosis Erectile dysfunction associated with type 2 diabetes mellitus Lumbar degenerative disc disease Gall bladder disease Finding of floating rib Spine disorder Pacemaker Stroke Diabetes 1.5, managed as type 2 Surgical History History of appendectomy Social History Household Members: None Both parents involved: No Caregiver staying overnight: No Housing: Apartment Are you a primary career development engineer to a significant other at home: No Do you presently have visiting nurse or other home services: No 75 years or older and lives alone: No Alcohol intake: current Alcohol intake frequency: a few times a month Alcohol type: other Comment: single malt scotch Patient Tobacco Use Status: Current everyday Tobacco user Cigarette Packs Per Day: 1 Cigarettes Per Day: 20 e-Cigarette/Vaping Use: Never Used Substance Use Type: Marijuana Special yamilex needs: No service: No Current occupational status: retired Cognitive needs: No Hearing needs: No Vision needs: No Review of Systems Const All systems reviewed & are unremarkable except as noted in HPI and below Physical Exam Vital Signs: Last Vital Signs Pulse 84 12/05/24 10:56 BP 120/68 12/05/24 10:56 Pulse Ox 96 12/05/24 10:56 Oxygen Delivery Method Room Air 12/05/24 10:56 BMI result Body Mass Index 26.7 General: Appears afebrile. Alert and oriented. Mood and affect appropriate. Follows and participates in conversation appropriately. Respiratory effort is unlabored. No cough. Able to transition from sit to stand unassisted. Ambulates with normal heel strike and toe off on the right. Left foot-h/o big toe, 2nd and 4th toe amputation. General: Yes no CVA tenderness Back/Spine/Pelvis Other: Limited lumbar ROM due to pain. Antalgic gait, no limping. Lumbar flexion forward and bending reproduce moderate-severe pain, extension reproduces moderate pain. Demonstrates 5/5 strength of quadriceps bilaterally as well as flexion/dorsiflexion of bilateral feet against resistance. 2+ pedal pulses bilaterally. Straight leg rise with dorsiflexion positive bilaterally. +Diminished on the left, +1 on the right patellar and diminished right, absent left achilles reflexes bilaterally. Facet loading test positive bilaterally. Talib sign, Eder?s, Gaenslen, Pelvic compression and Stinchfield tests are positive bilaterally. No groin pain with I/E hip rotations. Mild to moderate TTP to bilateral GTB. Valsalva maneuver is negative. Back: no CVA tenderness Cervical Spine: cervical ROM normal, cervical muscular tenderness and Cervical spine tenderness Thoracic/Lumbar Spine: thoracic and lumbar spine normal to inspection, No Thoracic/lumbar spine scar(s), Lasegue's sign positive (left>right) bilateral and localized, pain with thoraco-lumbar ROM, paraspinal muscle tenderness, thoraco-lumbar ROM limited, No thoracic spinal tenderness and lumbar spinal tenderness (L4-S1) Pelvis: buttock tenderness on the left Sacroiliac joints: bilaterally tender to palpation Extrem General: Yes capillary refill normal, Yes no clubbing, cyanosis or edema, Yes no calf tenderness and Yes amputation noted (left big toe, 2nd and 4th toes) Results Reviewed Results Reviewed: XR LUMBAR SPINE 2-3 VIEWS 09/27/24 HISTORY: M54.9 - Dorsalgia, unspecified COMPARISON: There are no prior studies for comparison. FINDINGS: AP, lateral, and coned down views of the lumbar spine are submitted. Osseous mineralization is normal. Five nonrib-bearing lumbar vertebral bodies are identified, maintaining normal height and alignment without evidence of fracture or spondylolisthesis. There is severe degenerative disc disease at L5-S1, with disc space narrowing and osteophyte formation. The remaining intervertebral disc spaces are maintained. The posterior elements are intact. The visualized paraspinal soft tissues are unremarkable. IMPRESSION: Severe degenerative disc disease at L5-S1. MR LUMBAR SPINE WITHOUT CONTRAST 11/09/24 CLINICAL INFORMATION: Dorsalgia, back pain, radiculopathy, degenerative disc disease. Right and left leg weakness. COMPARISON: No prior MRI. Plain films of the lumbar spine 09/27/2024. TECHNIQUE: Multiplanar multisequence MR imaging of the lumbar spine was done without IV contrast. Examination was performed on a 1.5 Adrianna Siemens magnet, utilizing standard sequences. FINDINGS: CORONAL ALIGNMENT: -Normal. SAGITTAL ALIGNMENT: - Normal. There is no subluxation. LUMBOSACRAL JUNCTION: -Normal. There are 5 tel-iir-xggqrxv lumbar-type vertebral bodies. VERTEBRAL BODIES/BONE MARROW: -No compression deformities or acute fractures identified. -Marked edematous type endplate changes present L5-S1, with superimposed fatty type endplate change and Schmorl's node herniations. There is high signal in the L5-S1 disc. This is likely degenerative. DISCS: -Loss of disc signal without loss of disc height L4-5. -Severe loss of disc height and signal L5-S1, with high signal within the disc space, presumably degenerative. If there is concern for infection, early discitis/osteomyelitis is not excluded given the appearance. SPINAL CANAL: -No abnormal developmental findings. CONUS MEDULLARIS: -Terminates at L1. Morphology and signal is normal. INTRADURAL NERVE ROOTS: - Within normal limits. Axial Disc Space Images: T12-L1: No central canal or neural foraminal narrowing. Normal facets. L1-L2: No central canal or neural foraminal narrowing. Normal facets. L2-L3: No central canal or neural foraminal narrowing. Normal facets. L3-L4: Mild facet hypertrophy and degeneration. No central canal narrowing. There is mild bilateral neural foraminal narrowing. L4-L5: There is an irregular disc bulge present with central annular fissuring. This indents upon the ventral thecal sac, and coupled with mild to moderate hypertrophic degenerative facet changes, and mild posterior ligamentous thickening/infolding result in mild to moderate central canal stenosis. There is moderate left and mild right subarticular recess stenosis. There is contact and mild deviation of the traversing the left L5 nerve roots (series 10, image 24). There is moderate right and pwam-td-hztjyxyq left neural foraminal narrowing. L5-S1: Severe disc degeneration at this level. There is an irregular diffuse disc bulge present with annular fissuring and osteophytic components, slightly asymmetrically involving the right greater than left lateral recesses and neural foramen. Coupled with mild to moderate hypertrophic degenerative facet changes. There is mild central canal narrowing, mild bilateral subarticular recess narrowing without definite mass effect upon the traversing S1 roots. There is severe bilateral neural foraminal impingement with flattening and deformity of the exiting L5 nerve roots on both sides. IMAGED SI JOINTS: -Mild degenerative arthrosis bilaterally. PARAVERTEBRAL AND INCLUDED EXTRASPINAL SOFT TISSUES: -The aorta is normal in caliber. Grossly the retroperitoneal contents demonstrate no abnormalities within the confines of mild motion artifact. IMPRESSION: 1. Marked edematous endplate changes and disc degeneration at L5-S1, with high signal within the disc space, presumably degenerative. If there is concern for infection, discitis/osteomyelitis cannot be excluded given the imaging appearance. 2. Spondylosis relatively confined to L4-5 and L5-S1 as detailed above. There is severe bilateral neural foraminal impingement at L5-S1. 3. There is moderate left subarticular recess narrowing at L4-5 with contact and mild deviation of the traversing left L5 nerve roots. 4. See the body of the report for further detail. Assessment & Plan Assessment & Plan (1) Back pain: Code(s): M54.9 - Dorsalgia, unspecified Category: Medical (2) Lumbar radiculopathy: Code(s): M54.16 - Radiculopathy, lumbar region Category: Medical (3) Lumbar degenerative disc disease: Code(s): M51.369 - Other intervertebral disc degeneration, lumbar region without mention of lumbar back pain or lower extremity pain Category: Medical (4) Lumbar spinal stenosis: Code(s): M48.061 - Spinal stenosis, lumbar region without neurogenic claudication Category: Medical (5) Vertebrogenic low back pain: Code(s): M54.51 - Vertebrogenic low back pain Category: Medical Plan We will proceed with an interlaminar epidural steroid injection at the L5-S1 level with local and fluoroscopy for discogenic and radicular symptoms. Expectations, risks and benefits were reviewed. Patient is aware he will be contacted to schedule this procedure. He is aware to monitor his blood sugars post injection due to hyperglycemic effects of steroids. Most recent A1C=7.2. Patient prefers to defer more invasive surgical options at this time such as anterior lumbar interbody fusion recently considered at [facility]. If no significant relief with therapeutic WILFRID, we will plan for Intracept. Post-procedure evaluations will be conducted to assess pain management effectiveness, especially in the context of his diabetes, with vigilant monitoring of blood glucose levels. All questions and concerns have been answered and patient agreed with the plan. Follow up after injection and sooner as needed. Patient was informed and verbally consented to the use of an ambient scribe for clinic note documentation during this visit. Coding Level of Care Code Est Pt Level 4 (26749) Complex EM visit Add On G2211 Diagnoses Back pain M54.9 Lumbar radiculopathy M54.16 Lumbar degenerative disc disease M51.369 Lumbar spinal stenosis M48.061 Vertebrogenic low back pain M54.51
[2024-12-05 10:56] VITALS: BP 120/68; PULSE 84; O2SAT 96; BMI 26.7
--- OUTSIDE RECORDS SUMMARY | 2024-12-05 11:42 | XMS_ITS | Continuity of Care Document ---
Author Organization [facility] [address] [facility] [address] [place] [address] Phone [phone] Problems Active Problems Provider Date Type 2 [...] SIG Qnty Indications Order ing Provider Date Dqcmhneu3fv/0.5ML Solution Auto-Inject inject 5mg injection subcutaneously weekly 2ml Mona Muhammad M.D. 11/15/2024 Pen Kinyajr38X X 4 mm Misc use one needle with insulin tacos, use three times a day 100units Mona Muhammad M.D. 08/16/2024 Freestyle Dori 2/[facility]/Flash Glucose Monitoring Ffkmfa9Wbmrua Device use as directed with sensors 1units E11Agatha9 Mona Muhammad M.D. 09/20/2023 Freestyle Dori 2/Sensor/Flash Glucose Monitoring Kqbfft2Mbhbvk Misc 1 sensor to skin every fourteen days as directed dx: e11.9 3units E11Nakia Muhammad M.D. 09/20/2023 Metformin ACB6876vy Tablets Take 1 Tablet By Mouth Twice Daily 180tabs Mona Muhammad M.D. Aspirin 8181mg Tablets DR 1 by mouth every day Unknown 000 Ketoconazole2% Cream Unknown Accu-Chek GuideStrips Unknown Kkxxseo92ie Tablets Take 1 tablet by mouth daily 90tabs Mona Muhammad M.D. Tresiba Yxdiejosc437Fpyl/ML Solution Pen-Inject 15 units daily 30ml E11.21 Mona Muhammad M.D. Rrdmxcijci61ot Capsules DR Take 1 capsule by mouth daily 90caps Mona Muhammad M.D. Ztlido1.8% Patches 1 patch daily Unknown Accu-Chek GuideStrips Unknown Tizanidine HCL4mg Tablets Take 1 Tablet By Mouth Three Times Daily 270tabs Mona Muhammad M.D. Rosuvastatin Brsryao87el Tablets Take 1 tablet by mouth daily Unknown Losartan Hytgxlnrw53cx Tablets Take 1 tablet by mouth daily Unknown Trazodone QVR996zu Tablets Take 1 tablet by mouth at bedtime as needed Unknown History Medications Mounjaro2.5mg/0.5ML Solution Auto-Inject inject 0.5ml injection subcutaneously weekly 2ml Mona Muhammad M.D. 08/16/2024 - 11/15/2024 Humalog Oapcvwq398Tcol/ML Solution Pen-Inject inject 8 units subcutaneously before meals 30ml E11.2 1 Mona Muhammad M.D. 01/05/2024 - 11/15/2024 Novolog Olsmwtp415Hout/ML Solution Pen-Inject inject 8 units every day [...] Lymphs (Absolute) 3.2 x10E3/uL High 0.7-3.1 Monocytes(Absol wrangell ) 1.1 x10E3/uL High 0.1-0.9 Eos (Absolute) [...] 09/17/2023 Inhouse Hemoglobin A1c 8.2% 1 Test(s) 729203-Vunlm terone was developed and its performance characteristics determined by [facility]. It has not been cleared or approved by the Food and Drug Administration. Test(s) 853219-Lmelo Activity, Plasma was developed and its performance characteristics determined by [facility]. It has not been cleared or approved by the Food and Drug Administration. 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 E66.9 Obesity, unspecified Z68.38 Body mass index [BMI ] 38.0-38.9, adult Assessments Date Code Description Provider 11/15/2024 E11.9 Type 2 diabetes mellitus wit hout complications CHETAN Govea 11/15/2024 Z79.4 custodial (current) use of i nsulin CHETAN Govea 11/15/2024 E66.9 Obesity, unspecified CHETAN Govea 11/15/2024 I10 Essential (primary) hyperten neno CHETAN Govea 11/15/2024 Z68.37 Body mass index [BMI] 37.0-3 7.9, adult CHETAN Govea 08/16/2024 E11.9 Type 2 diabetes mellitus wit hout complications CHETAN Govea 08/16/2024 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 nsulin CHETAN Govea 08/16/2024 E66.9 Obesity, unspecified CHETAN Govea 08/16/2024 Z68.38 Body mass index [BMI] 38.0-3 8.9, adult CHETAN Govea Plan of Treatment Future Appointment(s):* 02/15/2025 11:00 am - CHETAN Govea at Main Office 11/15/2024 - CHETAN Govea* E11.9 Type 2 diabetes mellitus without complications * Z79.4 custodial (current) use of insulin * E66.9 Obesity, unspecified * I10 Essential (primary) hypertension * Z68.37 Body mass index [BMI] 37.0-37.9, adult * Functional Status Description No Information Available Mental Status Description No Information Available Referrals Refer to Reason for Referral Status Appt Oleg Lisa Zuniga DPM [facility] Closed [address] [place] [address] [phone]
== END 2024-12-05 11:06 | disposition home or self-care (01) ==
LOC: HO.PMC 10:52
PROVIDERS: PCP Family Medicine; Visit Provider Nurse Practitioner Family
DX: M54.9 Dorsalgia, unspecified (principal); M54.16 Radiculopathy, lumbar region; M51.369 Other intervertebral disc degeneration, lumbar region without mention of lumbar back pain or lower extremity pain; M48.061 Spinal stenosis, lumbar region without neurogenic claudication; M54.51 Vertebrogenic low back pain
CPT/HCPCS: 99214; G2211

== ENCOUNTER → 2024-12-05 10:52 | Outpatient (BNVA) | payer OTHER, SELFPAY | PROVIDERS: PCP Family Medicine; Visit Provider Nurse Practitioner Family | DX: M54.16 Radiculopathy, lumbar region (principal); M51.360 Other intervertebral disc degeneration, lumbar region with discogenic back pain only; M48.061 Spinal stenosis, lumbar region without neurogenic claudication | CPT/HCPCS: 99212 ==

== ENCOUNTER 2025-01-04 06:20 | Outpatient (REF) | payer OTHER, SELFPAY ==
--- NOTE | ~2025-01-04 | FL_ITS ---
EXAMINATION: FL GUIDANCE ONLY HISTORY: M48.061 - Spinal stenosis, lumbar region without neurogenic claudication COMPARISON: None available. TECHNIQUE: Fluoroscopy time: 0.1 minutes. Cumulative Dose: 1.23 mGy. DAP: 0.54463 mGym2 Images: 3. FINDINGS: Fluoroscopic spot films of the lumbar spine demonstrate a needle and contrast material in the region of the left L5-S1 facet joint. FL/FL guidance in treatment room IMPRESSION: Fluoroscopy during procedure. Please see procedure report for additional information. Electronically signed by: Mega Jara MD 01/04/2025 01:28 PM EDT
--- OUTSIDE RECORDS SUMMARY | 2025-01-04 06:23 | XMS_ITS | Continuity of Care Document ---
Author Organization [facility] [address] [facility] [address] [place] [address] Phone [phone] Problems Active Problems Provider Date Type 2 diabetes mellitus CHETAN Govea Onse t: 09/17/2023 Essential hypertension CHETAN Govea Onset: 09/17/2023 Hyperlipidemia CHETAN Govea Onset: 2023 Gastroesophageal reflux disease CHETAN Govea Onset: 09/17/2023 Social History Type Date Description Comments Sex Male Sex Unknown Lives With Alone ETOH Use Rarely consumes alcohol Tobacco Use Start: Unknown Heavy tobacco sm oker (more than 10 cigarettes/day) pack a day Allergies and adverse reactions Description No Known Drug Allergies Medications Active Medications SIG Qnty Indications Order ing Provider Date Knnsqpys2xo/0.5ML Solution Auto-Inject inject 5mg injection subcutaneously weekly 2ml Mona Muhammad M.D. 11/15/2024 Pen Iytceen22G X 4 mm Misc use one needle with insulin tacos, use three times a day 100units Mona Muhammad M.D. 08/16/2024 Freestyle Dori 2/[place]/Flash Glucose Monitoring Kbfrll8Llsmfs Device use as directed with sensors 1units E11.9 Mona Muhammad M.D. 09/20/2023 Freestyle Dori 2/Sensor/Flash Glucose Monitoring Dixtpn4Bbtkte Misc 1 sensor to skin every fourteen days as directed dx: e11.9 3units E11.9 Mona Muhammad M.D. 09/20/2023 Ztlido1.8% Patches 1 patch daily Unknown Aspirin 8181mg Tablets DR 1 by mouth every day Unknown 00/00/0 000 Ketoconazole2% Cream Unknown Accu-Chek GuideStrips Unknown Ksaggqs05im Tablets Take 1 tablet by mouth daily 90tabs Mona Muhammad M.D. Tresiba Epvmgekzg431Lzwa/ML Solution Pen-Inject Administer 30 Units Under The Skin Daily 30units E11.21 Mona Muhammad M.D. Innogfknef38vj Capsules DR Take 1 capsule by mouth daily 90caps Mona Muhammad M.D. Metformin QHF4091yk Tablets Take 1 Tablet By Mouth Twice Daily 180tabs Mona Muhammad M.D. Accu-Chek GuideStrips Unknown Tizanidine HCL4mg Tablets Take 1 Tablet By Mouth Three Times Daily 270tabs Mona Muhammad M.D. Rosuvastatin Xioibpn55js Tablets Take 1 tablet by mouth daily Unknown Losartan Zqwltdxjb32tj Tablets Take 1 tablet by mouth daily Unknown Trazodone GNE296yp Tablets Take 1 tablet by mouth at bedtime as needed Unknown History Medications Mounjaro2.5mg/0.5ML Solution Auto-Inject inject 0.5ml injection subcutaneously weekly 2ml Mona Muhammad M.D. 08/16/2024 - 11/15/2024 Vital Signs Date Vital Result Comment 11/15/2024 [...] 09/17/2023 Inhouse Hemoglobin A1c 8.2% 1 Test(s) 172438-Yfhhi terone was developed and its performance characteristics determined by [facility]. It has not been cleared or approved by the Food and Drug Administration. Test(s) 412272-Tlwxw Activity, Plasma was developed and its performance characteristics determined by [facility]. It has not been cleared or approved by the Food and Drug Administration. 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 E66.9 Obesity, unspecified I10 Essential (primary) hypertension Z68.37 Body mass index [BMI ] 37.0-37.9, adult Assessments Date Code Description Provider 11/15/2024 E11.9 Type 2 diabetes mellitus wit hout complications CHETAN Govea 11/15/2024 Z79.4 shelter (current) use of i nsulin CHETAN Govea 11/15/2024 E66.9 Obesity, unspecified CHETAN Govea 11/15/2024 I10 Essential (primary) hyperten neno CHETAN Govea 11/15/2024 Z68.37 Body mass index [BMI] 37.0-3 7.9, adult CHETAN Govea Plan of Treatment Future Appointment(s):* 03/19/2025 1:00 pm - Sarah Li NP at Main Office 11/15/2024 - CHETAN Govea* E11.9 Type 2 diabetes mellitus without complications * Z79.4 shelter (current) use of insulin * E66.9 Obesity, unspecified * I10 Essential (primary) hypertension * Z68.37 Body mass index [BMI] 37.0-37.9, adult * Functional Status Description No Information Available Mental Status Description No Information Available Referrals Refer to Dr Reason for Referral Status Appt Oleg Lisa Zuniga DPM [facility] Closed [address] [place] [id number] [phone]
== END 2025-01-04 06:21 | disposition home or self-care (01) ==
LOC: CF 06:20
PROVIDERS: Visit Provider Internal Medicine
DX: M54.16 Radiculopathy, lumbar region (principal); M48.061 Spinal stenosis, lumbar region without neurogenic claudication
CPT/HCPCS: 62323; J2003; J3301; Q9967

== ENCOUNTER 2025-01-04 11:38 | Outpatient (AMB) | payer OTHER, SELFPAY ==
[2025-01-04 11:40] VITALS: BP 156/71; PULSE 89; RESP 16; O2SAT 100; BMI 26.7
--- NOTE | 2025-01-04 11:40 | A.OFFVIS_ITS ---
Vital Signs 01/04/25 11:40 01/04/25 11:45 Height 5 ft 9.75 in 5 ft 9.75 in Weight 185 lb 185 lb BMI 26.7 26.7 BP 156/71 H 146/69 H Blood Pressure Location Lt brachial Lt brachial Position Sitting Sitting Respiration 16 16 Pulse 89 84 Pulse Source Pulse Oximeter Pulse Oximeter Pulse Oximetry (%) 100 100 Oxygen Delivery Method Room Air Room Air Intake Visit Reasons: L5-S1 interlaminar WILFRID Allergies No Known Allergies Allergy (Verified 12/05/24 10:57) HPI HPI L5-S1 interlaminar WILFRID: Details: Patient presents for scheduled procedure. Denies any recent cough, cold, infection, fever or other significant changes in medical history since last office visit. [facility] Medical History Back pain Smoker Insomnia Amputated toe of left foot Anemia Low testosterone Hyperlipidemia Hypertension Carotid atherosclerosis Erectile dysfunction associated with type 2 diabetes mellitus Lumbar degenerative disc disease Gall bladder disease Finding of floating rib Spine disorder Pacemaker Stroke Diabetes 1.5, managed as type 2 Surgical History History of appendectomy Social History Household Members: None Both parents involved: No Caregiver staying overnight: No Housing: Apartment Are you a primary animal care worker to a significant other at home: No Do you presently have visiting nurse or other home services: No 75 years or older and lives alone: No Alcohol intake: current Alcohol intake frequency: a few times a month Alcohol type: other Comment: single malt scotch Patient Tobacco Use Status: Current everyday Tobacco user Cigarette Packs Per Day: 1 Cigarettes Per Day: 20 e-Cigarette/Vaping Use: Never Used Substance Use Type: Marijuana Special yamilex needs: No service: No Current occupational status: retired Cognitive needs: No Hearing needs: No Vision needs: No Physical Exam Vital Signs: Last Vital Signs Pulse 84 01/04/25 11:45 Resp 16 01/04/25 11:45 BP 146/69 H 01/04/25 11:45 Pulse Ox 100 01/04/25 11:45 Oxygen Delivery Method Room Air 01/04/25 11:45 BMI result Body Mass Index 26.7 Office Procedures AMB Joint Injection/Aspiration Joint Injection/Aspiration Details: Interlaminar epidural steroid injection, L5-S1, left parasaggital After obtaining written consent, pre-procedure blood pressure and heart rate were stable and recorded in the nursing record. The patient was placed in the prone position. The lumbosacral area was widely prepped with chloraprep and draped in sterile fashion. Fluoroscopic guidance was used to identify the desired interlaminar space and for needle placement. Subcutaneous 0.5% lidocaine was used to anesthetize the skin overlying the target. A 20-gauge Manley needle was advanced to the epidural space using loss of resistance to contrast technique under fluoroscopic AP and contralateral oblique views. There was no evidence of heme or CSF and no paresthesias were elicited with needle placement. Confirmation of epidural needle placement was performed with 1cc of omnipaque 180. Next 3 ml 0.5% lidocaine mixed with 80 mg triamcinilone was administered epidurally with no pain elicited on injection. The needle tract tubing was then cleared with 1 ml of 0.5% lidocaine. The needle was removed, skin cleansed and a sterile bandage was applied. The patient tolerated the procedure well and no complications were encountered. Following the procedure the patient's vital signs were stable. The patient was discharged home in good condition with post-procedural instructions. Time Out: Immediately prior to the procedure, the following was verbally confirmed that there is a signed consent form and that the correct patient, planned procedure, site and side are consistent with documentation and that necessary equipment and/or blood products are available prior to the start of the case. Complications: none EBL: <2 cc Coding 18511 - Caudal/Lumbar Epidural/Interlaminar with fluoroscopy Procedure code (CPT) selection complete Assessment & Plan Assessment & Plan (1) Lumbar radiculopathy: Code(s): M54.16 - Radiculopathy, lumbar region Category: Medical Plan Patient is status post L5-S1 left parasagittal interlaminar WILFRID. Patient tolerated procedure well and was discharged home in stable condition with discharge instructions. All questions were answered. We will follow-up via telephone or in clinic to assess response to therapy. A follow-up appointment was made during today's visit. Orders: Orders FL guidance in treatment room 01/04/25 M48.061 - Spinal stenosis, lumbar region without neurogenic claudication Coding Level of Care Code Procedure Only Diagnoses Lumbar radiculopathy M54.16 CPT Codes Coding - Joint 11: 97753 - Caudal/Lumbar Epidural/Interlaminar with fluoroscopy ([id number])
[2025-01-04 11:45] VITALS: BP 146/69; PULSE 84; RESP 16; O2SAT 100; BMI 26.7
== END 2025-01-04 12:30 | disposition home or self-care (01) ==
LOC: HO.PMCPRC 11:38
PROVIDERS: PCP Family Medicine; Visit Provider Internal Medicine
DX: M54.16 Radiculopathy, lumbar region (principal)
CPT/HCPCS: 62323

== ENCOUNTER 2025-01-23 11:24 | Outpatient (AMB) | payer OTHER, SELFPAY ==
--- NOTE | 2025-01-23 12:04 | A.OFFPC_ITS ---
Vital Signs 01/23/25 12:07 Height 5 ft 9.75 in Weight 170 lb 4 oz BMI 24.6 BP 90/60 Blood Pressure Location Rt brachial Position Sitting Respiration 14 Pulse 88 Pulse Source Pulse Oximeter Temp 98 F Temp Source Oral Pulse Oximetry (%) 97 Oxygen Delivery Method Room Air Intake Visit Reasons: Follow-up?diabetes Intake Note: patient is scheduled for dm follow up Assessment Nurse Practitioner Required: No Allergies No Known Allergies Allergy (Verified 01/23/25 12:05) Medication List - Last Reconciled 01/24/25 by Joao Stanford MD blood pressure monitor Automatic, Digital. Dx: I10. Daily As directed, 999 days/lifetime dapagliflozin propanediol (Farxiga) 10 mg PO DAILY 90 days flash glucose sensor (FreeStyle Dori 2 Sensor kit) As directed glipizide ER 5 mg PO QAM 90 days insulin degludec (Tresiba FlexTouch U-100 insulin) 20 units subcut DAILY insulin lispro (Humalog KwikPen (U-100) Insulin) subcut lidocaine 1.8% (ZTlido) 1 patch topical DAILY 30 days metformin 1,000 mg PO BID metoprolol succinate ER 25 mg PO DAILY nicotine (Nicoderm CQ) 1 patch transdermal DAILY 28 days omeprazole 40 mg PO DAILY 90 days pen needle, diabetic (NovoFine Plus) As directed rosuvastatin 40 mg PO DAILY 90 days sacubitril-valsartan 24-26 mg (Entresto) 1 tab PO BID 90 days semaglutide (Rybelsus) 14 mg PO DAILY 90 days tadalafil (Cialis) 10 mg PO .PRN PRN 30 days tadalafil (Cialis) 5 mg PO DAILY 90 days tirzepatide (Mounjaro) mg subcut tizanidine 4 mg PO BEDTIME PRN 30 days trazodone 100 mg PO DAILY 30 days varenicline tartrate 0 ea PO Tobacco use date assessed: 02/07/24 Dental Screening Dental Screen Date: 02/07/24 HPI Follow-up?diabetes HPI Details 64 y/o male presents to f/u diabetes. Last A1c 09/25/24 7.2%. A1c today 01/23/25 7.2%. He is prescribed Tresiba 20 units, glipizide 5mg, Farxiga 10mg, metformin 1000mg b.i.d, semaglutide 14mg daily, humalog, mounjaro. Pt notes he had decreased Tresiba to 15 units. He notes he sometimes gets low blood sugars - had recorded a value of 68 this morning. Blood pressure today 90/60, 88p. He is on Entresto b.i.d, metoprolol. Pt notes recent shots to his back and has started moving around a bit again. HPI Comments History of Present Illness Details Documentation assistance for Joao Stanford MD, was provided by Maximiliano Del Castillo,? Seasonal Package Handler on 01/23/2025 at 12:28 PM EST. I, Dr. Stanford, have read, observed, and verified documentation. ?? [facility] Medical History Back pain Smoker Insomnia Amputated toe of left foot Anemia Low testosterone Hyperlipidemia Hypertension Carotid atherosclerosis Erectile dysfunction associated with type 2 diabetes mellitus Lumbar degenerative disc disease Gall bladder disease Finding of floating rib Spine disorder Pacemaker Stroke Diabetes 1.5, managed as type 2 Surgical History History of appendectomy Social History Household Members: None Both parents involved: No Caregiver staying overnight: No Housing: Apartment Are you a primary acute care surgeon to a significant other at home: No Do you presently have visiting nurse or other home services: No 75 years or older and lives alone: No Alcohol intake: current Alcohol intake frequency: a few times a month Alcohol type: other Comment: single formerly [facility] Patient Tobacco Use Status: Current everyday Tobacco user Cigarette Packs Per Day: 1 Cigarettes Per Day: 20 e-Cigarette/Vaping Use: Never Used Substance Use Type: Marijuana Special yamilex needs: No service: No Current occupational status: retired Cognitive needs: No Hearing needs: No Vision needs: No Questionnaire PHQ-9 Over the last 2 weeks, how often have you been bothered by any of the following problems? 9. Thoughts that you would be better off or of hurting yourself in some way: not at all Source: Developed by Drs. Mega Teresa, Berenice Hardin, Rory Hewitt and colleagues, with an educational claudine from [employer]. Thrive Questionnaire Date Thrive assessed: 09/25/24 I am a: Patient What is your living situation today?: I choose not to answer this question Within the past 12 months, did the food you bought not last and you didn't have the money to get more?: I choose not to answer this question Within the past 12 months, did you worry whether your food would run out before you got money to buy more?: I choose not to answer this question Do you have trouble paying for medicines?: I choose not to answer this question Do you have trouble getting transportation to medical appointments?: I choose not to answer this question Do you have trouble paying your heating and electricity bill?: I choose not to answer this question Do you have trouble taking care of your child, family member or friend?: I choose not to answer this question Do you have trouble with day-to-day activities such as bathing, preparing meals, shopping, managing finances, etc.?: I choose not to answer this question Are you currently unemployed and looking for a job?: I choose not to answer this question Are you interested in more education?: I choose not to answer this question Please select the resources that you would like help with: None Currently or been in a relationship where the following occur: I choose not to answer THRIVE Score: 0 BELTARN-7 AMB Questionnaire BELTRAN-7 Date BELTRAN - 7 assessed: 11/24/23 Source: Developed by Drs. Mega Teresa, Berenice Hardin, Rory Hewitt and colleagues, with an educational claudine from [employer]. Review of Systems Const Denies chills, Denies fatigue, Denies fever(s), Denies headache(s) and Denies weakness ENT Denies dizziness and Denies headache(s) Card Denies dyspnea Resp Denies cough, Denies dyspnea, Denies wheezing and Denies other (shortness of breath) Musc Denies numbness and Denies tingling Neuro Denies dizziness, Denies headache(s), Denies numbness, Denies tingling and Denies weakness Psych Denies anxiety and Denies depression Endo Denies fatigue Aller/Immun Denies wheezing Physical exam (Primary Care) Vital Signs: Last Vital Signs Temp 98 F 01/23/25 12:07 Pulse 88 01/23/25 12:07 Resp 14 01/23/25 12:07 BP 90/60 01/23/25 12:07 Pulse Ox 97 01/23/25 12:07 Oxygen Delivery Method Room Air 01/23/25 12:07 BMI result Body Mass Index 24.6 Tobacco/Smoking Status: Tobacco use Status Tobacco use date assessed 02/07/24 01/23/25 12:10 Patient Tobacco Use Status Current everyday Tobacco 01/23/25 12:10 e-Cigarette/Vaping Use Never Used 01/23/25 12:10 Thrive Assessment: Date of Thrive Assessment Date Thrive assessed 09/25/24 01/23/25 12:10 Currently or been in a relationship where the following occur: I choose not to answer Const General: well developed; No acute distress Nutritional Appearance: well nourished Orientation/consciousness: patient oriented x3 HENMT Head: Yes normocephalic and Yes atraumatic Eyes General: appearance normal, both eyes and all related structures Pupils: Equal, round and reactive pupils present EOM: EOMs intact bilaterally Resp Effort & Inspection: normal respiratory effort Auscultation: clear to auscultation bilaterally Cardio Rate: regular rate Rhythm: regular rhythm Heart sounds: S1 normal heart sound present, S2 normal heart sound present, no gallops, no murmurs and no rubs Neuro General: patient oriented x3 and gait normal Cranial nerves: Yes Equal, round and reactive pupils present Psych Affect: normal affect Coding Level of Care Code Est Pt Level 3 (51127) Diagnoses Diabetes E11.9 Hypertension I10 Assessment & Plan Assessment & Plan (1) Diabetes: Code(s): E11.9 - Type 2 diabetes mellitus without complications Category: Medical Plan: A1c is still little high at 7.2%. Goal is less than 7% He has been taking is lispro a couple of hours after his meal. No changes to his medication doses however I recommended he take lispro just prior to each meal. Will follow-up again in 1 month (2) Hypertension: Code(s): I10 - Essential (primary) hypertension Category: Medical Plan: Blood pressure is low. Likely does not need as much metoprolol but patient is unclear with his dose. Will contact the pharmacy patient will call to let us know when he is taking Medications: New blood pressure monitor Automatic, Digital. Dx: I10. Daily As directed, 999 days/lifetime 1 ea 0RF I10 - Essential (primary) hypertension Changed From metoprolol succinate ER 25 mg PO DAILY To metoprolol succinate ER 12.5 mg (1/2 x 25 mg) PO DAILY 45 tabs 3RF 90 days
[2025-01-23 12:07] VITALS: BP 90/60; PULSE 88; RESP 14; TEMP 36.6; O2SAT 97; BMI 24.6
--- OUTSIDE RECORDS SUMMARY | 2025-01-23 12:47 | XMS_ITS | Continuity of Care Document ---
Author Organization [facility] [address] [place] [address] Phone [phone] Problems Active Problems Provider Date Type 2 [...] SIG Qnty Indications Order ing Provider Date Yubaxkdo7ad/0.5ML Solution Auto-Inject inject 5mg injection subcutaneously weekly 2ml Mona Muhammad M.D. 11/15/2024 Pen Lminwkf57W X 4 mm Misc use one needle with insulin tacos, use three times a day 100units Mona Muhammad M.D. 08/16/2024 Freestyle Dori 2/[place] [employer]/Flash Glucose Monitoring Tlddda5Vpjxmc Device use as directed with sensors 1units E11.9 Mona Muhammad M.D. 09/20/2023 Freestyle Dori 2/Sensor/Flash Glucose Monitoring Liykam1Umtfhg Misc 1 sensor to skin every fourteen days as directed dx: e11.9 3units E11.9 Mona Muhammad M.D. 09/20/2023 Ztlido1.8% Patches 1 patch daily Unknown Aspirin 8181mg Tablets DR 1 by mouth every day Unknown 00/00/0 000 Ketoconazole2% Cream Unknown Accu-Chek GuideStrips Unknown Pfegjme05lc Tablets Take 1 tablet by mouth daily 90tabs Mona Muhammad M.D. Tresiba Wnzgdamuo589Kmyd/ML Solution Pen-Inject Administer 30 Units Under The Skin Daily 30units E11.21 Mona Muhammad M.D. Tuwtqfvqib61px Capsules DR Take 1 capsule by mouth daily 90caps Mona Muhammad M.D. Metformin KID6756mb Tablets Take 1 Tablet By Mouth Twice Daily 180tabs Mona Muhammad M.D. Accu-Chek GuideStrips Unknown Tizanidine HCL4mg Tablets Take 1 Tablet By Mouth Three Times Daily 270tabs Mona Muhammad M.D. Rosuvastatin Wmebtgt14ht Tablets Take 1 tablet by mouth daily Unknown Losartan Skthfikks77fi Tablets Take 1 tablet by mouth daily Unknown Trazodone VKH706il Tablets Take 1 tablet by mouth at [...] 09/17/2023 Inhouse Hemoglobin A1c 8.2% 1 Test(s) 729688-Olbcy terone was developed and its performance characteristics determined by [facility]. It has not been cleared or approved by the Food and Drug Administration. Test(s) 407737-Mbtku Activity, Plasma was developed and its performance characteristics determined by [facility]. It has not been cleared or approved by the Food and Drug Administration. 2 Normal: 0 - 29 Moderately increased: 30 - 300 Severely increased: >300 Procedures Date Code Description Status 12/29/2023 64407 Glucose Monitoring Interpeta tion And Report Completed Medical Devices Description No Information Available Encounters Type Date Location Provider Dx Diagnosis Office Visit 11/15/2024 11:15a Main Office CHETAN Govea E11.9 Type 2 diabet es mellitus without complications Z79.4 manager meat (current) use of insulin E66.9 Obesity, unspecified I10 Essential (primary) hypertension Z68.37 Body mass index [BMI ] 37.0-37.9, adult Assessments Date Code Description Provider 11/15/2024 E11.9 Type 2 diabetes mellitus wit hout complications CHETAN Govea 11/15/2024 Z79.4 residential (current) use of i nsulin CHETAN Govea [...] Zuniga DPM [facility] Closed [address] [place] [id number] [phone]
--- OUTSIDE RECORDS SUMMARY | 2025-01-23 12:47 | XMS_ITS | Patient Health Record ---
Author Organization [facility] Address [address] [place] [address] Care Team Providers Care Mold Holder Name Role Phone José Frazier MD Primary Care Provider Luis Pan Unavailable [phone] Allergies No Known Allergies Reason For Referral No Information Medications Medication SIG (Take, Route, Frequency, Duration) Notes Start Date End Date Status Omeprazole 40 MG 1 capsule 30 minutes before morning meal Orally Once a day; Duration: 90 days Active Tresiba FlexTouch 100 UNIT/ML inject 30 units Subcutaneous daily; Duration: 100 days Active Pen [place] 32G X 6 MM use with insulin 3 times daily subcutaneously; Duration: 90 days 04/06/2021 Active Losartan Potassium 50 MG 1 tablet Orally Once a day; Duration: 90 days PT LOST ALL OF HIS MEDS IN HOUSE FIRE; PLS HELP WITH INS OVERRIDE 01/07/2022 Active Rybelsus 7 MG 1 tablet at least 30 minutes before first food, beverage or other oral medicine of the day Orally Once a day; Duration: 90 days Active Farxiga 10 MG 1 tablet Orally Once a day; Duration: 90 days 09/29/2021 Active metFORMIN HCl 1000 MG 1 tablet with a meal Orally twice a day; Duration: 90 days PT LOST ALL OF HIS MEDS IN HOUSE FIRE; PLS HELP WITH INS OVERRIDE Active Rosuvastatin Calcium 40 MG 1 tablet Orally Once a day; Duration: 90 days PT LOST ALL OF HIS MEDS IN HOUSE FIRE; PLS HELP WITH INS OVERRIDE Active Ozempic (2 MG/DOSE) 8 MG/3ML 2mg Subcutaneous weekly; Duration: 84 days PT LOST ALL OF HIS MEDS IN HOUSE FIRE; PLS HELP WITH INS OVERRIDE Not-Taking Diabetic shoes . as directed 09/10/2021 Active Gloria Aspirin EC Low Dose 81 MG 1 tablet Orally Once a day; Duration: 30 day(s) Active Social History Tobacco Use: [...] Status W/U Status Risk Notes Problem Hypercalcemia (13822964) Hypercalcemia (E83.52) Active confirmed Problem 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 mellitus (202723063) Type 2 diabetes mellitus with other diabetic neurological complication (E11.49) Active confirmed Problem Vitamin D deficiency (E55.9) Active confirmed Problem Dyslipidemia (224418059) Dyslipidemia (E78.5) Active confirmed Problem Hyperglycemia due to type 2 diabetes mellitus (939823091344605) Type 2 diabetes mellitus with hyperglycemia (E11.65) Active confirmed Problem Essential hypertension (89192563) Essential (primary) hypertension (I10) Active confirmed Problem 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 Problem Abnormal result, function study of peripheral nervous system / special senses (017639232) Abnormal results of function studies of other [...] Coverage Start Date Coverage End Date [facility] D[employer]PLETE PPO [employer] [address] [address] [place] [phone] [id number] QMB Florentin Ni Self - patient is the insured Medical (General) History Medical History History ICD Code Diabetes HTN Hyperlipidemia GERD Surgical History Surgery Date(Month/Year) Screws right ankle Toe amputation left foot Appendectomy 06/2020 Hospitalization History Reason Date(Month/Year) Appendectomy 06/2020
== END 2025-01-23 12:44 | disposition home or self-care (01) ==
LOC: HO.HMCFM 11:25
PROVIDERS: PCP Family Medicine; Visit Provider Family Medicine
DX: E11.9 Type 2 diabetes mellitus without complications (principal); I10 Essential (primary) hypertension

== ENCOUNTER → 2025-01-23 11:24 | Outpatient (BNVA) | payer OTHER, SELFPAY | PROVIDERS: PCP Family Medicine; Visit Provider Family Medicine | DX: E11.9 Type 2 diabetes mellitus without complications (principal); I10 Essential (primary) hypertension | CPT/HCPCS: 99212 ==

== ENCOUNTER 2025-02-01 09:59 | Outpatient (AMB) | payer OTHER, SELFPAY ==
--- NOTE | 2025-02-01 10:03 | A.OFFVIS_ITS ---
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 He has a history of severe disc degeneration at L5-S1 and spinal stenosis, for which he previously underwent a Neurosurgery evaluation. The patient reports significant improvement in his condition, with pain levels reduced to 2/10 and approximately 80% ongoing pain relief since the injection. He used to experience significant pain in the morning, but now he can sit without discomfort and has started walking more. The pain, which previously radiated down his left leg, has decreased significantly. He denies any swelling in his legs and reports improved sleep quality. The patient was offered fusion surgery by Neurosurgery but opted to try the injection first to assess its effectiveness. He is currently in the process of moving and prefers to hold off on back surgery after settling into his new property and potentially trial one more therapeutic WILFRID injection. Denies any recent cough, cold, infection, fever or any significant changes in medical history since last office visit. Past Procedures: 01/04/25: Interlaminar epidural steroid injection, L5-S1, left parasaggital -80% ongoing pain relief PRIOR: The patient is a 63-year-old male presenting today after recent Neurosurgery evaluation regarding severe degenerative disc disease at the L5-S1 and spinal stenosis. Previous back injections were administered three to four years ago while residing in [place]. The current back pain is compounded by an anticipated move due to his residence's impending sale. Although an anterior lumbar interbody fusion surgery has been considered at [facility] with a 60-70% success rate, the patient seeks alternative treatments first, including epidural steroid injections and possibly Intracept, contingent on the efficacy and duration of symptom relief. He denies any infection-related complications, his recent lab work (WBC, ESR) and blood cultures returned normal. PRIOR: Patient presents today for follow up to discuss recent lumbar spine MRI results. The back pain has progressively concentrated on the left side, radiating down the left leg and occasionally on the right. Low back is worse than leg pain per patient. This pain has been persistent and worsened in recent times, affecting the ability to walk, causing functional limitations in daily life activities like fishing. The patient denied any acute injury that initiated the back pain but has a history of physical strain and possible trauma from activities like football and tree climbing in his past. The patient underwent an MRI that identified severe stenosis of the L5-S1 disc with a significant herniation impacting nerve roots. The imaging raised concerns about potential infection, either discitis or osteomyelitis, which could not be ruled out. There is no history of similar infections or osteomyelitis reported, but has history of multiple left toe amputated in the past. Past also presents today with right hand healing abrasions with concern for erythema with yellow discoloration. He attributes this to recent dog bite which he notes was not a significant bite but rather he got scratched by dog's claws while playing. Patient denies follow up with his PCP or seeking evaluation and treatment in Urgent clinic or ER. I strongly urged him to go to ER for evaluation for this and follow up with PCP. PRIOR: The patient is a 63-year-old male presenting with chronic low back pain due to severe degenerative disc disease at L5-S1 and lumbosacral spondylosis. His condition has affected him for approximately a decade, initiated by cumulative physical strain from his previous physically demanding roles. The pain is const ant with severity ranging from 3/10 to 10/10 and primarily affects his lower back and left buttock. He associates the exacerbation with movement and morning activities, which lead to momentary leg instability. Past management with steroid back injections had been administered in [place], but recent attempts at pain relief have been limited to Tylenol and muscle relaxants, specifically Tizanidine. 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 Patient has completed multiple courses of physical therapy and tried chiropractic adjustments without significant benefit. He stays physically active and has been attending [facility] gym but had to stop exercising due to increased back pain with radicular symptoms. Denies previous spine surgery. Denies bladder or bowel dysfunction or saddle anesthesia. - Chronic onset approximately 10 years ago - Pain quality: Aching with sharp, intense episodes, stabbing, pinching, cramping, dull, sore, hurting - Primary location: Lower back - Radiation: Left buttock and left leg, occasionally on right leg, bilateral lateral hips - Intensity: Baseline 3/10, up to 10/10 during flare-ups - Aggravating factors: Sudden movement, morning activities, such as descending stairs, bending, flexing forward, twisting, heavy lifting, prolonged walking or standing - Alleviating factors: Sitting down during intense episodes - Activities impacted: Walking, descending stairs, general mobility, sleep - Affect: Reports managing pain well but refrains from verbalizing the extent to others - Analgesia: Frequent use of Tylenol; denies utilizing gabapentin or opioids in the past - Adverse Effects: None explicitly related to pain medications - Activities of Daily Living: Limited by pain; previously engaged in routine physical activity, now restricted - Aberrant Drug Related Behaviors: None reported; adheres to prescribed regimen Oswestry Low Back Pain Disability Score= 19 (moderate disability) [facility] Medical History Back pain Smoker Insomnia Amputated toe of left foot Anemia Low testosterone Hyperlipidemia Hypertension Carotid atherosclerosis Erectile dysfunction associated with type 2 diabetes mellitus Lumbar degenerative disc disease Gall bladder disease Finding of floating rib Spine disorder Pacemaker Stroke Diabetes 1.5, managed as type 2 Surgical History History of appendectomy Social History Household Members: None Both parents involved: No Caregiver staying overnight: No Housing: Apartment Are you a primary reproductive healthcare assistant to a significant other at home: No Do you presently have visiting nurse or other home services: No 75 years or older and lives alone: No Alcohol intake: current Alcohol intake frequency: a few times a month Alcohol type: other Comment: single shaun angelo Patient Tobacco Use Status: Current everyday Tobacco user Cigarette Packs Per Day: 1 Cigarettes Per Day: 20 e-Cigarette/Vaping Use: Never Used Substance Use Type: Marijuana Special yamilex needs: No service: No Current occupational status: retired Cognitive needs: No Hearing needs: No Vision needs: No Review of Systems Const Details: - Musculoskeletal: Reports significant reduction in pain, denies swelling or significant numbness/tingling in legs - Neurological: Denies radiating pain down the left leg, denies bladder or bowel dysfunction or saddle anesthesia - General: Reports improved sleep quality, mobility and daily functioning All systems reviewed & are unremarkable except as noted in HPI and below Physical Exam General: Appears afebrile. Alert and oriented. Mood and affect appropriate. Follows and participates in conversation appropriately. Respiratory effort is unlabored. No cough. Able to transition from sit to stand unassisted. Ambulates with normal heel strike and toe off on the right. Left foot-h/o big toe, 2nd and 4th toe amputation. Back/Spine/Pelvis Cervical Spine: cervical ROM normal and No Cervical spine tenderness Thoracic/Lumbar Spine: thoracic and lumbar spine normal to inspection, No Thoracic/lumbar spine scar(s), Lasegue's sign negative, pain with thoraco-lumbar ROM, paraspinal muscle tenderness, thoraco-lumbar ROM limited, No thoracic spinal tenderness and lumbar spinal tenderness (mild) at L4 and at L5 Pelvis: no buttock tenderness Sacroiliac joints: bilaterally (minimal) tender to palpation Extrem General: Yes capillary refill normal, Yes no clubbing, cyanosis or edema, Yes no calf tenderness and Yes amputation noted (left big toe, 2nd and 4th toes) Results Reviewed Results Reviewed: XR LUMBAR SPINE 2-3 VIEWS 09/27/24 HISTORY: M54.9 - Dorsalgia, unspecified COMPARISON: There are no prior studies for comparison. FINDINGS: AP, lateral, and coned down views of the lumbar spine are submitted. Osseous mineralization is normal. Five nonrib-bearing lumbar vertebral bodies are identified, maintaining normal height and alignment without evidence of fracture or spondylolisthesis. There is severe degenerative disc disease at L5-S1, with disc space narrowing and osteophyte formation. The remaining intervertebral disc spaces are maintained. The posterior elements are intact. The visualized paraspinal soft tissues are unremarkable. IMPRESSION: Severe degenerative disc disease at L5-S1. MR LUMBAR SPINE WITHOUT CONTRAST 11/09/24 CLINICAL INFORMATION: Dorsalgia, back pain, radiculopathy, degenerative disc disease. Right and left leg weakness. COMPARISON: No prior MRI. Plain films of the lumbar spine 09/27/2024. TECHNIQUE: Multiplanar multisequence MR imaging of the lumbar spine was done without IV contrast. Examination was performed on a 1.5 Adrianna Siemens magnet, utilizing standard sequences. FINDINGS: CORONAL ALIGNMENT: -Normal. SAGITTAL ALIGNMENT: - Normal. There is no subluxation. LUMBOSACRAL JUNCTION: -Normal. There are 5 dkk-jnt-eldmfsf lumbar-type vertebral bodies. VERTEBRAL BODIES/BONE MARROW: -No compression deformities or acute fractures identified. -Marked edematous type endplate changes present L5-S1, with superimposed fatty type endplate change and Schmorl's node herniations. There is high signal in the L5-S1 disc. This is likely degenerative. DISCS: -Loss of disc signal without loss of disc height L4-5. -Severe loss of disc height and signal L5-S1, with high signal within the disc space, presumably degenerative. If there is concern for infection, early discitis/osteomyelitis is not excluded given the appearance. SPINAL CANAL: -No abnormal developmental findings. CONUS MEDULLARIS: -Terminates at L1. Morphology and signal is normal. INTRADURAL NERVE ROOTS: - Within normal limits. Axial Disc Space Images: T12-L1: No central canal or neural foraminal narrowing. Normal facets. L1-L2: No central canal or neural foraminal narrowing. Normal facets. L2-L3: No central canal or neural foraminal narrowing. Normal facets. L3-L4: Mild facet hypertrophy and degeneration. No central canal narrowing. There is mild bilateral neural foraminal narrowing. L4-L5: There is an irregular disc bulge present with central annular fissuring. This indents upon the ventral thecal sac, and coupled with mild to moderate hypertrophic degenerative facet changes, and mild posterior ligamentous thickening/infolding result in mild to moderate central canal stenosis. There is moderate left and mild right subarticular recess stenosis. There is contact and mild deviation of the traversing the left L5 nerve roots (series 10, image 24). There is moderate right and qkqc-st-wdzmbeyg left neural foraminal narrowing. L5-S1: Severe disc degeneration at this level. There is an irregular diffuse disc bulge present with annular fissuring and osteophytic components, slightly asymmetrically involving the right greater than left lateral recesses and neural foramen. Coupled with mild to moderate hypertrophic degenerative facet changes. There is mild central canal narrowing, mild bilateral subarticular recess narrowing without definite mass effect upon the traversing S1 roots. There is severe bilateral neural foraminal impingement with flattening and deformity of the exiting L5 nerve roots on both sides. IMAGED SI JOINTS: -Mild degenerative arthrosis bilaterally. PARAVERTEBRAL AND INCLUDED EXTRASPINAL SOFT TISSUES: -The aorta is normal in caliber. Grossly the retroperitoneal contents demonstrate no abnormalities within the confines of mild motion artifact. IMPRESSION: 1. Marked edematous endplate changes and disc degeneration at L5-S1, with high signal within the disc space, presumably degenerative. If there is concern for infection, discitis/osteomyelitis cannot be excluded given the imaging appearance. 2. Spondylosis relatively confined to L4-5 and L5-S1 as detailed above. There is severe bilateral neural foraminal impingement at L5-S1. 3. There is moderate left subarticular recess narrowing at L4-5 with contact and mild deviation of the traversing left L5 nerve roots. 4. See the body of the report for further detail. Assessment & Plan Assessment & Plan (1) Lumbar radiculopathy: Code(s): M54.16 - Radiculopathy, lumbar region Category: Medical (2) Lumbar degenerative disc disease: Code(s): M51.369 - Other intervertebral disc degeneration, lumbar region without mention of lumbar back pain or lower extremity pain Category: Medical (3) Lumbar spinal stenosis: Code(s): M48.061 - Spinal stenosis, lumbar region without neurogenic claudication Category: Medical (4) Lumbar spondylosis: Code(s): M47.816 - Spondylosis without myelopathy or radiculopathy, lumbar region Category: Medical Plan The patient will continue to monitor his back and left leg pain levels and report any significant increase in symptoms. If the pain returns to baseline lev els, he is advised to contact the clinic for a potential repeat of the epidural steroid injection, which can be administered three months after the initial procedure. The patient is considering lumbar fusion surgery in the future, but prefers to wait until he has settled into his new property and potentially trial repeat injection. In the meantime, he is encouraged to continue with his current ac tivities and report any worsening of symptoms. All questions and concerns have been answered and patient agreed with the plan. Follow up as needed. Patient was informed and verbally consented to the use of an ambient scribe for clinic note documentation during this visit. Coding Level of Care Code Est Pt Level 3 (58919) Complex EM visit Add On G2211 Diagnoses Lumbar radiculopathy M54.16 Lumbar degenerative disc disease M51.369 Lumbar spinal stenosis M48.061 Lumbar spondylosis M47.816
[2025-02-01 10:04] VITALS: BP 128/65; PULSE 84; O2SAT 97; BMI 24.6
--- OUTSIDE RECORDS SUMMARY | 2025-02-01 10:46 | XMS_ITS | Continuity of Care Document ---
Author Organization [facility] [address] [place] [address] Phone [phone] Problems Active Problems Provider Date Type 2 [...] SIG Qnty Indications Order ing Provider Date Txptzdjn7ul/0.5ML Solution Auto-Inject inject 5mg injection subcutaneously weekly 2ml Mona Muhammad M.D. 11/15/2024 Pen Eybsnud21X X 4 mm Misc use one needle with insulin tacos, use three times a day 100units Mona Muhammad M.D. 08/16/2024 Freestyle Dori 2/Argyle/Flash Glucose Monitoring Cqykbf4Zigroo Device use as directed with sensors 1units E11.9 Mona Muhammad M.D. 09/20/2023 Freestyle Dori 2/Sensor/Flash Glucose Monitoring Djqpak9Phpasg Misc 1 sensor to skin every fourteen days as directed dx: e11.9 3units E11.9 Mona Muhammad M.D. 09/20/2023 Ztlido1.8% Patches 1 patch daily Unknown Aspirin 8181mg Tablets DR 1 by mouth every day Unknown 00/00/0 000 Ketoconazole2% Cream Unknown Accu-Chek GuideStrips Unknown Onfnrsg08vj Tablets Take 1 tablet by mouth daily 90tabs Mona Muhammad M.D. Tresiba Szvwnklhe638Dsoc/ML Solution Pen-Inject Administer 30 Units Under The Skin Daily 30units E11.21 Mona Muhammad M.D. Kvamydnwxe84vs Capsules DR Take 1 capsule by mouth daily 90caps Mona Muhammad M.D. Metformin GMI5123zb Tablets Take 1 Tablet By Mouth Twice Daily 180tabs Mona Muhammad M.D. Accu-Chek GuideStrips Unknown Tizanidine HCL4mg Tablets Take 1 Tablet By Mouth Three Times Daily 270tabs Mona Muhammad M.D. Rosuvastatin Jtahvkp10vn Tablets Take 1 tablet by mouth daily Unknown Losartan Zbeawhpxh76wj Tablets Take 1 tablet by mouth daily Unknown Trazodone XTF186bi Tablets Take 1 tablet by mouth at [...] 09/17/2023 Inhouse Hemoglobin A1c 8.2% 1 Test(s) 290030-Xablp terone was developed and its performance characteristics determined by [facility]. It has not been cleared or approved by the Food and Drug Administration. Test(s) 627316-Tyvyb Activity, Plasma was developed and its performance characteristics determined by [facility]. It has not been cleared or approved by the Food and Drug Administration. 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 E66.9 Obesity, unspecified I10 Essential (primary) hypertension Z68.37 Body mass index [BMI ] 37.0-37.9, adult Assessments Date Code Description Provider 11/15/2024 E11.9 Type 2 diabetes mellitus wit hout complications CHETAN Govea 11/15/2024 Z79.4 longterm (current) use of i nsulin CHETAN Govea 11/15/2024 E66.9 Obesity, unspecified CHETAN Govea 11/15/2024 I10 Essential (primary) hyperten neno CHETAN Govea 11/15/2024 Z68.37 Body mass index [BMI] 37.0-3 7.9, adult CHETAN Govea Plan of Treatment Future Appointment(s):* 03/19/2025 1:00 pm - Sarah Li NP at Main Office 11/15/2024 - [facility] Govea* E11.9 Type 2 diabetes mellitus without complications * Z79.4 longterm (current) use of insulin * E66.9 Obesity, unspecified * I10 Essential (primary) hypertension * Z68.37 Body mass index [BMI] 37.0-37.9, adult * Functional Status Description No Information Available Mental Status Description No Information Available Referrals Refer to Dr Reason for Referral Status Appt Oleg Lisa Zuniga DPM [facility] Closed [address] [place] [address] [phone]
--- OUTSIDE RECORDS SUMMARY | 2025-02-01 10:46 | XMS_ITS | Patient Health Record ---
Author Organization [facility] Address [address] [place] [address] Care Team Providers Care Employee Relations Representative Name Role Phone José Frazier MD Primary Care Provider Luis Pan Unavailable [phone] Allergies No Known Allergies Reason For Referral No Information Medications Medication SIG (Take, Route, Frequency, Duration) Notes Start Date End Date Status Omeprazole 40 MG 1 capsule 30 minutes before morning meal Orally Once a day; Duration: 90 days Active Tresiba FlexTouch 100 UNIT/ML inject 30 units Subcutaneous daily; Duration: 100 days Active Pen Onyx 32G X 6 MM use with insulin [...] Status W/U Status Risk Notes Problem Hypercalcemia (14972864) Hypercalcemia (E83.52) Active confirmed Problem 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 mellitus (082495814) Type 2 diabetes mellitus with other diabetic neurological complication (E11.49) Active confirmed Problem Vitamin D deficiency (51187187) Vitamin D deficiency (E55.9) Active confirmed Problem Dyslipidemia (898448466) Dyslipidemia (E78.5) Active confirmed Problem Hyperglycemia due to type 2 diabetes mellitus (921999340611042) Type 2 diabetes mellitus with hyperglycemia (E11.65) Active confirmed Problem Essential hypertension (20016103) Essential (primary) hypertension (I10) Active confirmed Problem 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 Metabolic Panel (14) 11/28/2022 Insurance Providers Payer Name Payer Address Payer Phone Subscriber Number Group Number Insured Name Patient Relationship to Insured Coverage Start Date Coverage End Date [facility] D[employer]PLETE PPO [employer] [address] [address] [place] [address] [id number] QMB Florentin Ni Self - patient is the insured Medical (General) History Medical History History ICD Code Diabetes HTN Hyperlipidemia GERD Surgical History Surgery Date(Month/Year) Screws right ankle Toe amputation left foot Appendectomy 06/2020 Hospitalization History Reason Date(Month/Year) Appendectomy 06/2020
== END 2025-02-01 10:18 | disposition home or self-care (01) ==
LOC: HO.PMC 10:00
PROVIDERS: PCP Family Medicine; Visit Provider Nurse Practitioner Family
DX: M54.16 Radiculopathy, lumbar region (principal); M51.369 Other intervertebral disc degeneration, lumbar region without mention of lumbar back pain or lower extremity pain; M48.061 Spinal stenosis, lumbar region without neurogenic claudication; M47.816 Spondylosis without myelopathy or radiculopathy, lumbar region
CPT/HCPCS: 99213; G2211

== ENCOUNTER → 2025-02-01 09:59 | Outpatient (BNVA) | payer OTHER, SELFPAY | PROVIDERS: PCP Family Medicine; Visit Provider Nurse Practitioner Family | DX: M54.16 Radiculopathy, lumbar region (principal); M51.369 Other intervertebral disc degeneration, lumbar region without mention of lumbar back pain or lower extremity pain; M48.061 Spinal stenosis, lumbar region without neurogenic claudication; M47.816 Spondylosis without myelopathy or radiculopathy, lumbar region; G89.29 Other chronic pain | CPT/HCPCS: 99212 ==

== ENCOUNTER 2025-03-07 10:52 | Outpatient (AMB) | payer OTHER, SELFPAY ==
--- NOTE | 2025-03-07 10:59 | A.OFFPC_ITS ---
Vital Signs 03/07/25 11:03 Height 5 ft 9.75 in Weight 157 lb 8 oz BMI 22.8 BP 118/62 Blood Pressure Location Lt brachial Position Sitting Respiration 14 Pulse 86 Pulse Source Pulse Oximeter Temp 97.7 F Temp Source Oral Pulse Oximetry (%) 100 Oxygen Delivery Method Room Air Intake Visit Reasons: Annual PE - see comments Intake Note: Physical. Sees endocrinology for diabetes, last a1c was 7.2. Next appt is in March. Baseball Sewer Hand Required: No Allergies No Known Allergies Allergy (Verified 03/07/25 11:00) Medication List - Last Reconciled 03/07/25 by Simran Santillan PA-C blood pressure monitor Automatic, Digital. Dx: I10. Daily As directed, 999 days/lifetime dapagliflozin propanediol (Farxiga) 10 mg PO DAILY 90 days flash glucose sensor (FreeStyle Dori 2 Sensor kit) As directed glipizide ER 5 mg PO QAM 90 days insulin degludec (Tresiba FlexTouch U-100 insulin) 20 units subcut DAILY insulin lispro (Humalog KwikPen (U-100) Insulin) subcut lidocaine 1.8% (ZTlido) 1 patch topical DAILY 30 days metformin 1,000 mg PO BID metoprolol succinate ER 12.5 mg (1/2 x 25 mg) PO DAILY 90 days omeprazole 40 mg PO DAILY 90 days pen needle, diabetic (NovoFine Plus) As directed rosuvastatin 40 mg PO DAILY 90 days sacubitril-valsartan 24-26 mg (Entresto) 1 tab PO BID 90 days semaglutide (Rybelsus) 14 mg PO DAILY 90 days tadalafil (Cialis) 10 mg PO .PRN PRN 30 days tadalafil (Cialis) 5 mg PO DAILY 90 days tirzepatide (Mounjaro) mg subcut tizanidine 4 mg PO BEDTIME PRN 30 days trazodone 100 mg PO DAILY 30 days Tobacco use date assessed: 03/07/25 Fall risk assessment: 1 Fall in past year Last assessed Fall Risk: 03/07/25 Dental Screening Dental Screen Date: 03/07/25 Did you have a dental visit in the last 12 months?: Yes Did you have a dental problem in the last 6 months where you did not have access to dental care?: No Was dental information given to patient?: Patient has dentist HPI Annual PE - see comments HPI Details 64 y/o male presents for a physical exam . He normally follows with Dr. Stanford. Endo: Follows with endo at [facility] now and is booked in Mar. Last A1c 01/23/25 7.2%. He is prescribed Tresiba 10 units, glipizide 5mg, Farxiga 10mg, metformin 1000mg b.i.d, humalog prn but not really needed, mounjaro 5 mg weekly. -denies any significant hypoglycemic jack nts. 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 He tries to check his feet regularly. CV: Blood pressure today 118/62. He is on Entresto b.i.d, metoprolol 12.5 mg. Recently had metoprolol reduced by PCP Colonoscopy: 2021- per pt good for 10 years PSA: UTD Lung ca screening: has smoked 50 years about approximately 1 ppd PFSH Medical History Back pain Smoker Insomnia Amputated toe of left foot Anemia Low testosterone Hyperlipidemia Hypertension Carotid atherosclerosis Erectile dysfunction associated with type 2 diabetes mellitus Lumbar degenerative disc disease Gall bladder disease Finding of floating rib Spine disorder Pacemaker Stroke Diabetes 1.5, managed as type 2 Surgical History History of appendectomy Social History Household Members: None Housing: Apartment Are you a primary farm or ranch animal caretaker to a significant other at home: No Do you presently have visiting nurse or other home services: No Alcohol intake: current Alcohol intake frequency: a few times a month Alcohol type: other Comment: single malt scotch Patient Tobacco Use Status: Current everyday Tobacco user Cigarette Packs Per Day: 1 Cigarettes Per Day: 15 Years Smoked: 45 e-Cigarette/Vaping Use: Never Used Second Hand Smoke Exposure: No Substance Use Type: Marijuana Special yamilex needs: No service: No Current occupational status: retired Cognitive needs: No Hearing needs: No Vision needs: No Questionnaire Thrive Questionnaire Date Thrive assessed: 09/25/24 I am a: Patient What is your living situation today?: I choose not to answer this question Within the past 12 months, did the food you bought not last and you didn't have the money to get more?: I choose not to answer this question Within the past 12 months, did you worry whether your food would run out before you got money to buy more?: I choose not to answer this question Do you have trouble paying for medicines?: I choose not to answer this question Do you have trouble getting transportation to medical appointments?: I choose not to answer this question Do you have trouble paying your heating and electricity bill?: I choose not to answer this question Do you have trouble taking care of your child, family member or friend?: I choose not to answer this question Do you have trouble with day-to-day activities such as bathing, preparing meals, shopping, managing finances, etc.?: I choose not to answer this question Are you currently unemployed and looking for a job?: I choose not to answer this question Are you interested in more education?: I choose not to answer this question Please select the resources that you would like help with: None Currently or been in a relationship where the following occur: I choose not to answer THRIVE Score: 0 AUDIT C Alcohol Use Questionnaire (AUDIT-C) 1. How often do you have a drink containing alcohol?: Monthly or less 2. How many drinks containing alcohol do you have on a typical day when you are drinking?: 1 or 2 3. How often do you have six or more drinks on one occasion?: Never Total Score: 1 BELTRAN-7 AMB Questionnaire BELTRAN-7 Date BELTRAN - 7 assessed: 11/24/23 Source: Developed by Drs. Mega Teresa, Berenice Hardin, Rory Hewitt and colleagues, with an educational claudine from [employer]. Physical exam (Primary Care) Vital Signs: Last Vital Signs Temp 97.7 F 03/07/25 11:03 Pulse 86 03/07/25 11:03 Resp 14 03/07/25 11:03 BP 118/62 03/07/25 11:03 Pulse Ox 100 03/07/25 11:03 Oxygen Delivery Method Room Air 03/07/25 11:03 BMI result Body Mass Index 22.8 Tobacco/Smoking Status: Tobacco use Status Tobacco use date assessed 03/07/25 03/07/25 11:03 Patient Tobacco Use Status Current everyday Tobacco 03/07/25 11:03 e-Cigarette/Vaping Use Never Used 03/07/25 11:03 Thrive Assessment: Date of Thrive Assessment Date Thrive assessed 09/25/24 03/07/25 11:03 Currently or been in a relationship where the following occur: I choose not to answer Const Orientation/consciousness: patient oriented x3 HENMT Ears: hearing grossly normal bilaterally and TM's normal bilaterally General nose exam: No nasal polyps present Face and sinus: Yes sinuses nontender Mouth: Normal oral and palatal mucosa present Eyes Pupils: Equal, round and reactive pupils present EOM: EOMs intact bilaterally Neck Neck: Yes full ROM and Yes no lymphadenopathy Thyroid: Thyroid normal Chest Chest palpation & inspection: normal inspection of the chest Resp Auscultation: clear to auscultation bilaterally Cardio Rate: regular rate Rhythm: regular rhythm Heart sounds: S1 normal heart sound present and S2 normal heart sound present Peripheral pulses: Peripheral pulses 2+ throughout GI Other: Soft, nontender Auscultation: normal bowel sounds Rectal Exam - Male: Yes deferred General: Yes no CVA tenderness Back/Spine/Pelvis Other: Nontender Back: no CVA tenderness Skin Other: Toenails thickened and hyperkeratotic. General skin exam: no rashes or lesions noted Neuro General: patient oriented x3, gait normal, CN's II-XI intact bilaterally and deep tendon reflexes 2+ bilaterally Cranial nerves: Yes Equal, round and reactive pupils present Motor exam (neuro): 5/5 motor strength present throughout Sensory Exam: double simultaneous stimulation for sensation normal Coordination: lzcvek-tr-gvse test normal and Romberg test negative Extrem Other: Amputation of toes noted on left foot General: Yes full ROM and Yes capillary refill normal Psych Affect: normal affect Attitude: cooperative Thought process: Normal thought process present Thought content: Normal thought content present Insight: Good insight present (Psych) Judgement: Good judgement present (Psych) Coding Level of Care Code Est Pt Prev Care >65y(44278) Diagnoses Routine general medical examination at a health care facility Z00.00 Smoker F17.200 Hypertension I10 Hyperlipidemia E78.5 Amputated toe of left foot S98.132A Assessment & Plan Assessment & Plan (1) Routine general medical examination at a health care facility: Code(s): Z00.00 - Encounter for general adult medical examination without abnormal findings Plan: Health maintenance reviewed. Labs ordered. (2) Smoker: Code(s): F17.200 - Nicotine dependence, unspecified, uncomplicated Category: Social Hx Plan: Low-dose chest CT ordered (3) Hypertension: Code(s): I10 - Essential (primary) hypertension Category: Medical Plan: WNL. Continue current regimen (4) Hyperlipidemia: Code(s): E78.5 - Hyperlipidemia, unspecified Category: Medical Plan: Reviewed labs. Ordered lipids and LFTs today. Continue Crestor. (5) Amputated toe of left foot: Code(s): S98.132A - Complete traumatic amputation of one left lesser toe, initial encounter Category: Medical Plan: Referral to podiatry Orders: Orders CT lung screening 03/07/25 F17.200 - Nicotine dependence, unspecified, uncomplicated Complete Blood Count Auto Diff 03/08/25 E11.9 - Type 2 diabetes mellitus wi out complications, E78.5 - Hyperlipidemia, unspecified, I10 - Essential (primary) hypertension Comprehensive Met. Panel 03/08/25 E11.9 - Type 2 diabetes mellitus without c omplications, E78.5 - Hyperlipidemia, unspecified, I10 - Essential (primary) hypertension Lipid Panel 03/08/25 E11.9 - Type 2 diabetes mellitus without complications, E78.5 - Hyperlipidemia, unspecified, I10 - Essential (primary) hypertension TSH reflex Free T4 03/08/25 E11.9 - Type 2 diabetes mellitus without complications, E78.5 - Hyperlipidemia, unspecified, I10 - Essential (primary) hypertension Referrals Podiatry Referral B35.1 - Tinea unguium, E11.65 - Type 2 diabetes mellitus wi hyperglycemia, S98.132A - Complete traumatic amputation of one left lesser toe, initial encounter, 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
[2025-03-07 11:03] VITALS: BP 118/62; PULSE 86; RESP 14; TEMP 36.5; O2SAT 100; BMI 22.8
--- OUTSIDE RECORDS SUMMARY | 2025-03-07 11:47 | XMS_ITS | Patient Health Record ---
Author Organization [facility] Address [address] [facility] [address] [place] [address] Care Team Providers Care Retirement Actuary Name Role Phone José Frazier Primary Care Provider Unavailab jeevan VINSONMERONHI Unavailable [phone] Allergies No Known Allergies Reason For Referral No Information Medications Medication SIG (Take, Route, Frequency, Duration) Notes Start Date End Date Status Omeprazole 40 MG Oral Unk nown metFORMIN HCl 1000 MG Oral Unknown Farxiga 10 MG Oral Unknow n Accu-Chek Dilia Plus - In Vitro Unknown Rosuvastatin Calcium 40 MG Oral Unknown traMADol HCl 50 MG Oral U nknown Tresiba FlexTouch 100 UNIT/ML Subcutaneous Unknown Aspirin Adult Low Dose 81 MG Take 1 oral Oral Unknown tiZANidine HCl 4 MG 1 tablet as needed Orally Three times a day; Duration: 30 days NON ACUTE PAIN Active OZEMPIC 1MG PER DOSE (1X4MG PEN) *Reorder from [facility] for eRx and Interaction Alerts* Unknown ZTlido 1.8 % 1 patch remove after 12 hours Externally Once a day; Duration: 30 days non acute pain Active traZODone HCl 100 MG Oral Unknown Social History Tobacco Use: Social History Observation Description Date Details (start date - stop date) Current Smoker NA - NA Sex Assigned At : Social History Observation Description Sex Assigned At Male Tobacco Use/Smoking Question Answer Notes Tobacco use: current smoker Alcohol Screen (Audit-C) Question Answer Notes Did you have a drink contain ing alcohol in the past year? Yes How often did you have a dri nk containing alcohol in the past year? Monthly or less (1 point) How many drinks did you have on a typical day when you were drinking in the past year? 1 or 2 drinks (0 point) How often did you have 6 or more drinks on one occasion in the past year? Never (0 point) Points 1 Interpretation Negative Problems Problem Type SNOMED Code ICD Code Onset Dates Problem Status W/U Status Risk Notes Problem Lumbar radiculopathy (948630184) Lumbar radiculopathy (M54.16) Active confirmed Problem Lumbosacral spondylosis without myelopathy (26122277) Other spondylosis, lumbar region (M47.896) Active confirmed Problem Lumbosacral spondylosis without myelopathy (77962998) Other spondylosis, lumbosacral region (M47.897) Active confirmed Problem Spinal stenosis of lumbar region (24267131) Spinal stenosis, lumbosacral region (M48.07) Active confirmed Problem Disorder of lumbar disc (414868570) Other intervertebral disc disorders, lumbar region (M51.86) Active confirmed Problem Disorder of lumbosacral intervertebral disc (101403925) Other intervertebral disc disorders, lumbosacral region (M51.87) Active confirmed Problem Spasm of back muscles (109903504) Muscle spasm of back (M62.830) Active confirmed Problem Spasm (78340034) Other muscle spasm (M62.838) Active confirmed Problem Muscle pain (33135595) Myalgia, other site (M79.18) Active confirmed Problem Low back pain (681513996) Low back pain, unspecified (M54.50) Active confirmed Problem Lumbosacral spondylosis without myelopathy (03773082) Spondylosis w/o myelopathy or radiculopathy, lumbar region (M47.816) Active confirmed Problem Lumbosacral spondylosis without myelopathy (52029757) Spondyls w/o myelopathy or radiculopathy, lumbosacr region (M47.817) Active confirmed Plan Of Treatment Pending Test Test Name Order Date 37609 Lumbar/Caudal WILFRID 05/04/2022 Future Test Test Name Order Date 62423 Lumbar/Caudal WILFRID 08/05/2022 Insurance Providers Payer Name Payer Address Payer Phone Subscriber Number Group Number Insured Name Patient Relationship to Insured Coverage Start Date Coverage End Date [facility] DUAL COMP MDCR HMO [address] [address] [place] [address] [phone] [id number] Florentin Begum Self - patient is the insured 3 [employer] [place] [address] [address] [place], [place] [id number] Raine Florentin Self - patient is the insured 3 Medical (General) History Medical History History ICD Code diabetes stroke Surgical History Surgery Date(Month/Year) Appendectomy
--- OUTSIDE RECORDS SUMMARY | 2025-03-07 11:47 | XMS_ITS | Continuity of Care Document ---
Author Organization [facility] [address] [facility] [address] [place] [address] Phone [phone] Problems Active Problems Provider Date Type 2 [...] SIG Qnty Indications Order ing Provider Date Tacobhkq8jj/0.5ML Solution Auto-Inject inject 5mg injection subcutaneously weekly 2ml Mona Muhammad M.D. 11/15/2024 Pen Qmkstjg98Q X 4 mm Misc use one needle with insulin tacos, use three times a day 100units Mona Muhammad M.D. 08/16/2024 Freestyle Dori 2/[place]/Flash Glucose Monitoring Mtvwxw6Zbhgsw Device use as directed with sensors 1units E11.9 Mona Muhammad M.D. 09/20/2023 Freestyle Dori 2/Sensor/Flash Glucose Monitoring Cizogx4Pfhyhf Misc 1 sensor to skin every fourteen days as directed dx: e11.9 3units E11.9 Mona Muhammad M.D. 09/20/2023 Ztlido1.8% Patches 1 patch daily Unknown Aspirin 8181mg Tablets DR 1 by mouth every day Unknown 00/00/0 000 Ketoconazole2% Cream Unknown Accu-Chek GuideStrips Unknown Dqnqufu55af Tablets Take 1 tablet by mouth daily 90tabs Mona Muhammad M.D. Tresiba Kdriayfuk122Uofp/ML Solution Pen-Inject Administer 30 Units Under The Skin Daily 30units E11.21 Mona Muhammad M.D. Vzwzaiyfmy14pe Capsules DR Take 1 capsule by mouth daily 90caps Mona Muhammad M.D. Metformin ATC7379ah Tablets Take 1 Tablet By Mouth Twice Daily 180tabs Mona Muhammad M.D. Accu-Chek GuideStrips Unknown Tizanidine HCL4mg Tablets Take 1 Tablet By Mouth Three Times Daily 270tabs Mona Muhammad M.D. Rosuvastatin Gnbpkaq08ou Tablets Take 1 tablet by mouth daily Unknown Losartan Hqmklhngt53dv Tablets Take 1 tablet by mouth daily Unknown Trazodone VZQ591on Tablets Take 1 tablet by mouth at [...] 09/17/2023 Inhouse Hemoglobin A1c 8.2% 1 Test(s) 082991-Yapcn terone was developed and its performance characteristics determined by [facility]. It has not been cleared or approved by the Food and Drug Administration. Test(s) 660305-Gizjy Activity, Plasma was developed and its performance characteristics determined by [facility]. It has not been cleared or approved by the Food and Drug Administration. 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 E66.9 Obesity, unspecified I10 Essential (primary) hypertension Z68.37 Body mass index [BMI ] 37.0-37.9, adult Assessments Date Code Description Provider 11/15/2024 E11.9 Type 2 diabetes mellitus wit hout complications CHETAN Govea 11/15/2024 Z79.4 terminal worker (current) 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 of i nsulin CHETAN Govea 11/15/2024 E66.9 Obesity, unspecified CHETAN Govea 11/15/2024 I10 Essential (primary) hyperten neno CHETAN Govea 11/15/2024 Z68.37 Body mass index [BMI] 37.0-3 7.9, adult CHETAN Govea Plan of Treatment Future Appointment(s):* 03/19/2025 1:00 pm - Sarah Li NP at Main Office 11/15/2024 - [facility] Govea* E11.9 Type 2 diabetes mellitus without complications * Z79.4 [facility] (current) use of insulin * E66.9 Obesity, unspecified * I10 Essential (primary) hypertension * Z68.37 Body mass index [BMI] 37.0-37.9, adult * Functional Status Description No Information Available Mental Status Description No Information Available Referrals Refer to Dr Reason for Referral Status Appt Oleg Lisa Zuniga DPM [facility] Closed [address] [place] [address] [phone]
--- OUTSIDE RECORDS SUMMARY | 2025-03-07 11:47 | XMS_ITS | Patient Health Record ---
Author Organization [facility] Address [address] [place] [address] Care Team Providers Care Mutual Fund Analyst Name Role Phone José Frazier MD Primary Care Provider Luis Pan Unavailable [phone] Allergies No Known Allergies Reason For Referral No Information Medications Medication SIG (Take, Route, Frequency, Duration) Notes Start Date End Date Status Omeprazole 40 MG 1 capsule 30 minutes before morning meal Orally Once a day; Duration: 90 days Active Tresiba FlexTouch 100 UNIT/ML inject 30 units Subcutaneous daily; Duration: 100 days Active Pen Aneta 32G X 6 MM use with insulin [...] Status W/U Status Risk Notes Problem Hypercalcemia (96146941) Hypercalcemia (E83.52) Active confirmed Problem 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 mellitus (201730552) Type 2 diabetes mellitus with other diabetic neurological complication (E11.49) Active confirmed Problem Vitamin D deficiency (41290831) Vitamin D deficiency (E55.9) Active confirmed Problem Dyslipidemia (475980926) Dyslipidemia (E78.5) Active confirmed Problem Hyperglycemia due to type 2 diabetes mellitus (600540804798093) Type 2 diabetes mellitus with hyperglycemia (E11.65) Active confirmed Problem Essential hypertension (97787210) Essential (primary) hypertension (I10) Active confirmed Problem 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 Problem Abnormal result, function study of peripheral nervous system / special senses (307302168) Abnormal results of function studies of other [...] Coverage Start Date Coverage End Date [facility] DUAL COMPLETE PPO [employer] [address] [address] [place] [address] [id number] QMB Floerntin Ni Self - patient is the insured Medical (General) History Medical History History ICD Code Diabetes HTN Hyperlipidemia GERD Surgical History Surgery Date(Month/Year) Screws right ankle Toe amputation left foot Appendectomy 06/2020 Hospitalization History Reason Date(Month/Year) Appendectomy 06/2020
== END 2025-03-07 15:19 | disposition home or self-care (01) ==
LOC: HO.HMCFM 10:53
PROVIDERS: PCP Family Medicine; Visit Provider Physician Assistant
DX: Z00.00 Encounter for general adult medical examination without abnormal findings (principal); F17.200 Nicotine dependence, unspecified, uncomplicated; I10 Essential (primary) hypertension; E78.5 Hyperlipidemia, unspecified; S98.132A Complete traumatic amputation of one left lesser toe, initial encounter

== ENCOUNTER → 2025-03-07 10:52 | Outpatient (BNVA) | payer OTHER, SELFPAY | PROVIDERS: PCP Family Medicine; Visit Provider Physician Assistant | DX: Z00.00 Encounter for general adult medical examination without abnormal findings (principal); I10 Essential (primary) hypertension; E78.5 Hyperlipidemia, unspecified; S98.132D Complete traumatic amputation of one left lesser toe, subsequent encounter; F17.200 Nicotine dependence, unspecified, uncomplicated; Z71.6 Tobacco abuse counseling | CPT/HCPCS: 99397 ==

== ENCOUNTER 2025-03-08 07:57 | Outpatient (REF) | payer OTHER, SELFPAY ==
--- OUTSIDE RECORDS SUMMARY | 2025-03-08 08:02 | XMS_ITS | Patient Health Record ---
Author Organization [facility] Address [address] [facility] [address] [place] [address] Care Team Providers Care Automotive Service Director Name Role Phone José Frazier Primary Care Provider Unavailab jeevan VINSONMERONHI Unavailable [phone] Allergies No Known Allergies Reason For Referral [...] 1MG PER DOSE (1X4MG PEN) *Reorder from [facility] for eRx and Interaction Alerts* Unknown ZTlido [...] W/U Status Risk Notes Problem Lumbar radiculopathy (715065046) Lumbar radiculopathy (M54.16) Active confirmed Problem Lumbosacral spondylosis without myelopathy (57517530) Other spondylosis, lumbar region (M47.896) Active confirmed Problem Lumbosacral spondylosis without myelopathy (06817444) Other spondylosis, lumbosacral region (M47.897) Active confirmed Problem Spinal stenosis of lumbar region (66613650) Spinal stenosis, lumbosacral region (M48.07) Active confirmed Problem Disorder of lumbar disc (410137480) Other intervertebral disc disorders, lumbar region (M51.86) Active confirmed Problem Disorder of lumbosacral intervertebral disc (542289848) Other intervertebral disc disorders, lumbosacral region (M51.87) Active confirmed Problem Spasm of back muscles (833786397) Muscle spasm of back (M62.830) Active confirmed Problem Spasm (15920088) Other muscle spasm (M62.838) Active confirmed Problem Muscle pain (84766663) Myalgia, other site (M79.18) Active confirmed Problem Low back pain (280447382) Low back pain, unspecified (M54.50) Active confirmed Problem Lumbosacral spondylosis without myelopathy (08397044) Spondylosis w/o myelopathy or radiculopathy, lumbar region (M47.816) Active confirmed Problem Lumbosacral spondylosis without myelopathy (39009725) Spondyls w/o myelopathy or radiculopathy, lumbosacr region (M47.817) Active confirmed Plan Of Treatment Pending Test Test Name Order Date 21547 Lumbar/Caudal WILFRID 05/04/2022 Future Test Test Name Order Date 67031 Lumbar/Caudal WILFRID 08/05/2022 Insurance Providers Payer Name Payer Address Payer Phone Subscriber Number Group Number Insured Name Patient Relationship to Insured Coverage Start Date Coverage End Date [facility] DUAL COMP MDCR HMO [address] [address] [place] [address] [phone] [id number] Florentin Begum Self - patient is the insured 3 [place] [address] [address] [place], [place] [id number] Raine Florentin Self - patient is the insured 3 Medical (General) History Medical History History ICD Code diabetes stroke Surgical History Surgery Date(Month/Year) Appendectomy
--- OUTSIDE RECORDS SUMMARY | 2025-03-08 08:02 | XMS_ITS | Patient Health Record ---
Author Organization [facility] Address [address] [place] [address] Care Team Providers Care Policyholder Information Clerk Name Role Phone José Frazier MD Primary Care Provider Luis Pan Unavailable [phone] Allergies No Known Allergies Reason For Referral No Information Medications Medication SIG (Take, Route, Frequency, Duration) Notes Start Date End Date Status Omeprazole 40 MG 1 capsule 30 minutes before morning meal Orally Once a day; Duration: 90 days Active Tresiba FlexTouch 100 UNIT/ML inject 30 units Subcutaneous daily; Duration: 100 days Active Pen [place] 32G X 6 MM use with insulin [...] Status W/U Status Risk Notes Problem Hypercalcemia (68451007) Hypercalcemia (E83.52) Active confirmed Problem 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 mellitus (877360449) Type 2 diabetes mellitus with other diabetic neurological complication (E11.49) Active confirmed Problem Vitamin D deficiency (53437187) Vitamin D deficiency (E55.9) Active confirmed Problem Dyslipidemia (196520274) Dyslipidemia (E78.5) Active confirmed Problem Hyperglycemia due to type 2 diabetes mellitus (836657073048075) Type 2 diabetes mellitus with hyperglycemia (E11.65) Active confirmed Problem Essential (primary) hypertension (I10) Active confirmed Problem Disorder of calcium metabolism (12163112) 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 Problem Abnormal result, function study of peripheral nervous system / special senses (878475394) Abnormal results of function studies of other [...] Insured Coverage Start Date Coverage End Date [facility] DUAL COMPLETE PPO QMB [address] [address] [place] [address] [id number] QMB Florentin Ni Self - patient is the insured Medical (General) History Medical History History ICD Code Diabetes HTN Hyperlipidemia GERD Surgical History Surgery Date(Month/Year) Screws right ankle Toe amputation left foot Appendectomy 06/2020 Hospitalization History Reason Date(Month/Year) Appendectomy 06/2020
--- OUTSIDE RECORDS SUMMARY | 2025-03-08 08:02 | XMS_ITS | Continuity of Care Document ---
Author Organization [facility] [address] [place] [address] Phone [phone] Problems Active Problems Provider Date Type 2 [...] SIG Qnty Indications Order ing Provider Date Ylskxsvc4nr/0.5ML Solution Auto-Inject inject 5mg injection subcutaneously weekly 2ml Mona Muhammad M.D. 11/15/2024 Pen Fpjffgd52M X 4 mm Misc use one needle with insulin tacos, use three times a day 100units Mona Muhammad M.D. 08/16/2024 Freestyle Dori 2/[place]/Flash Glucose Monitoring Rujqou7Rjirqp Device use as directed with sensors 1units E11.9 Mona Muhammad M.D. 09/20/2023 Freestyle Dori 2/Sensor/Flash Glucose Monitoring Mwkgwk0Dfjpqy Misc 1 sensor to skin every fourteen days as directed dx: e11.9 3units E11.9 Mona Muhammad M.D. 09/20/2023 Ztlido1.8% Patches 1 patch daily Unknown Aspirin 8181mg Tablets DR 1 by mouth every day Unknown 00/00/0 000 Ketoconazole2% Cream Unknown Accu-Chek GuideStrips Unknown Yuvpszi13fr Tablets Take 1 tablet by mouth daily 90tabs Mona Muhammad M.D. Tresiba Shlnqgsnn886Hkxy/ML Solution Pen-Inject Administer 30 Units Under The Skin Daily 30units E11.21 Mona Muhammad M.D. Iuqbhzdhxq69fw Capsules DR Take 1 capsule by mouth daily 90caps Mona Muhammad M.D. Metformin BAV2416ji Tablets Take 1 Tablet By Mouth Twice Daily 180tabs Mona Muhammad M.D. Accu-Chek GuideStrips Unknown Tizanidine HCL4mg Tablets Take 1 Tablet By Mouth Three Times Daily 270tabs Mona Muhammad M.D. Rosuvastatin Dicvmxr36qd Tablets Take 1 tablet by mouth daily Unknown Losartan Rmpeusudy81wn Tablets Take 1 tablet by mouth daily Unknown Trazodone VKI770vr Tablets Take 1 tablet by mouth at [...] 09/17/2023 Inhouse Hemoglobin A1c 8.2% 1 Test(s) 405541-Xnvmo terone was developed and its performance characteristics determined by [facility]. It has not been cleared or approved by the Food and Drug Administration. Test(s) 932585-Gzqom Activity, Plasma was developed and its performance characteristics determined by [facility]. It has not been cleared or approved by the Food and Drug Administration. 2 Normal: 0 - 29 Moderately increased: 30 - 300 Severely increased: >300 Procedures Date Code Description Status 12/29/2023 43461 Glucose Monitoring Interpeta tion And Report Completed Medical Devices Description No Information Available Encounters Type Date Location Provider Dx Diagnosis Office Visit 11/15/2024 11:15a Main Office CHETAN Govea E11.9 Type 2 diabet es mellitus without complications Z79.4 emt intermediate (current) use of insulin E66.9 Obesity, unspecified I10 Essential (primary) hypertension Z68.37 Body mass index [BMI ] 37.0-37.9, adult Assessments Date Code Description Provider 11/15/2024 E11.9 Type 2 diabetes mellitus wit hout complications CHETAN Govea 11/15/2024 Z79.4 emt intermediate (current) use of i nsulin CHETAN Govea 11/15/2024 E66.9 Obesity, unspecified CHETAN Govea 11/15/2024 I10 Essential (primary) hyperten neno CHETAN Govea 11/15/2024 Z68.37 Body mass index [BMI] 37.0-3 7.9, adult CHETAN Govea Plan of Treatment Future Appointment(s):* 03/19/2025 1:00 pm - Sarah Li NP at Main Office 11/15/2024 - [facility] [place]* E11.9 Type 2 diabetes mellitus without complications * Z79.4 [facility] (current) use of insulin * E66.9 Obesity, unspecified * I10 Essential (primary) hypertension * Z68.37 Body mass index [BMI] 37.0-37.9, adult * Functional Status Description No Information Available Mental Status Description No Information Available Referrals Refer to Dr Reason for Referral Status Appt Oleg Lisa Zuniga DPM [facility] Closed [address] [place] [address] [phone]
[2025-03-08 11:27] LABS: MANUAL DIFF FLAG NO
[2025-03-08 11:40] LABS: Hematocrit 38.5 % (42.0-52.0); Hemoglobin 13.0 g/dl (14.0-18.0); Imm Gran Abs Auto 0.13 X10*3/uL (0.00-0.03); Imm Gran Pct Auto 1.3 % (0.0-0.4); Lymphocytes Absolute Auto 2.4 X10*3/uL (1.2-4.9); Mean Corpuscular HGB Conc 33.8 g/dl (31.0-36.0); Mean Corpuscular Hemoglobin 27.3 pg (27.0-33.0); Mean Corpuscular Volume 80.9 fL (80.0-98.0); NRBC Abs Auto 0.000 X10*3/uL (0.0-0.012); NRBC Pct Auto 0.0 /100WBC (0.0-0.2); Platelet Count 446 X10*3/uL (160-400); Red Blood Count 4.76 X10*6/uL (4.60-5.80); White Blood Count 10.3 X10*3/uL (4.8-10.8)
[2025-03-08 12:14] LABS: Alanine Aminotransferase 10 U/L (0-40); Albumin Level 4.0 g/dL (3.5-5.0); Alkaline Phosphatase 43 U/L (39-117); Anion Gap 13 (12-20); Aspartate Amino Transferase 21 U/L (5-37); Blood Urea Nitrogen 19 mg/dL (9-16); Calcium 9.5 mg/dL (8.4-10.2); Carbon Dioxide 25 mmol/L (22-29); Chloride 102 mmol/L (96-108); Cholesterol 261 mg/dL (<200); Estimated Glomerular Filt Rate 44; HDL Cholesterol 35 mg/dL (>40); Potassium 5.0 mmol/L (3.3-5.1); Sodium 135 mmol/L (135-145); Total Protein 6.8 g/dL (6.5-8.0); Triglycerides 209 mg/dL (<150)
== END 2025-03-08 07:58 | disposition home or self-care (01) ==
LOC: HO.WFDLDS 07:57
PROVIDERS: Visit Provider Physician Assistant
DX: I10 Essential (primary) hypertension (principal); E78.5 Hyperlipidemia, unspecified; E11.9 Type 2 diabetes mellitus without complications
CPT/HCPCS: 36415; 80053; 80061; 84443; 85025

== ENCOUNTER 2025-03-09 13:47 | Outpatient (AMB) | payer OTHER, SELFPAY ==
--- OUTSIDE RECORDS SUMMARY | 2025-03-09 13:50 | XMS_ITS | Continuity of Care Document ---
Author Organization [facility] [address] [place] [address] Phone [phone] Problems Active Problems Provider Date Type 2 [...] SIG Qnty Indications Order ing Provider Date Cvxzvmbl8pi/0.5ML Solution Auto-Inject inject 5mg injection subcutaneously weekly 2ml Mona Muhammad M.D. 11/15/2024 Pen Dumvyty65N X 4 mm Misc use one needle with insulin tacos, use three times a day 100units Mona Muhammad M.D. 08/16/2024 Freestyle Dori 2/[place]/Flash Glucose Monitoring Zqzvoi1Mbzjen Device use as directed with sensors 1units E11.9 Mona Muhammad M.D. 09/20/2023 Freestyle Dori 2/Sensor/Flash Glucose Monitoring Bjcixe0Gfcbqb Misc 1 sensor to skin every fourteen days as directed dx: e11.9 3units E11.9 Mona Muhammad M.D. 09/20/2023 Ztlido1.8% Patches 1 patch daily Unknown Aspirin 8181mg Tablets DR 1 by mouth every day Unknown 00/00/0 000 Ketoconazole2% Cream Unknown Accu-Chek GuideStrips Unknown Wjoenec40jj Tablets Take 1 tablet by mouth daily 90tabs Mona Muhammad M.D. Tresiba Vswbuskuu840Qtmm/ML Solution Pen-Inject Administer 30 Units Under The Skin Daily 30units E11.21 Mona Muhammad M.D. Qptrdrcfqo76re Capsules DR Take 1 capsule by mouth daily 90caps Mona Muhammad M.D. Metformin BHT3612ax Tablets Take 1 Tablet By Mouth Twice Daily 180tabs Mona Muhammad M.D. Accu-Chek GuideStrips Unknown Tizanidine HCL4mg Tablets Take 1 Tablet By Mouth Three Times Daily 270tabs Mona Muhammad M.D. Rosuvastatin Jfgcibg84hn Tablets Take 1 tablet by mouth daily Unknown Losartan Rbdzkcmim00hs Tablets Take 1 tablet by mouth daily Unknown Trazodone UXZ124au Tablets Take 1 tablet by mouth at [...] 09/17/2023 Inhouse Hemoglobin A1c 8.2% 1 Test(s) 439525-Rshie terone was developed and its performance characteristics determined by [facility]. It has not been cleared or approved by the Food and Drug Administration. Test(s) 799065-Teseh Activity, Plasma was developed and its performance characteristics determined by [facility]. It has not been cleared or approved by the Food and Drug Administration. 2 Normal: 0 - 29 Moderately increased: 30 - 300 Severely increased: >300 Procedures Date Code Description Status 12/29/2023 39687 Glucose Monitoring Interpeta tion And Report Completed Medical Devices Description No Information Available Encounters Type Date Location Provider Dx Diagnosis Office Visit 11/15/2024 11:15a Main Office CHETAN Govea E11.9 Type 2 diabet es mellitus without complications Z79.4 terminal gauger (current) use of insulin E66.9 Obesity, unspecified I10 Essential (primary) hypertension Z68.37 Body mass index [BMI ] 37.0-37.9, adult Assessments Date Code Description Provider 11/15/2024 E11.9 Type 2 diabetes mellitus wit hout complications CHETAN Govea 11/15/2024 Z79.4 terminal gauger (current) use of i nsulin CHETAN Govea 11/15/2024 E66.9 Obesity, unspecified CHETAN Govea 11/15/2024 I10 Essential (primary) hyperten neno CHETAN Govea 11/15/2024 Z68.37 Body mass index [BMI] 37.0-3 7.9, adult CHETAN Govea Plan of Treatment Future Appointment(s):* 03/19/2025 1:00 pm - Sarah Li NP at Main Office 11/15/2024 - [facility] Govea* E11.9 Type 2 diabetes mellitus without complications * Z79.4 [facility] (current) use of insulin * E66.9 Obesity, unspecified * I10 Essential (primary) hypertension * Z68.37 Body mass index [BMI] 37.0-37.9, adult * Functional Status Description No Information Available Mental Status Description No Information Available Referrals Refer to Dr Reason for Referral Status Appt Oleg Lisa Zuniga DPM [facility] Closed [address] [place] [address] [phone]
--- OUTSIDE RECORDS SUMMARY | 2025-03-09 13:50 | XMS_ITS | Patient Health Record ---
Author Organization [facility] Address [address] [facility] [address] [place] [address] Care Team Providers Care Brain Picker Name Role Phone Joés Frazier Primary Care Provider Unavailab jeevan VINSONMERONHI Unavailable [phone] Allergies No Known Allergies Reason For Referral [...] PER DOSE (1X4MG PEN) *Reorder from [facility] for eRx and Interaction Alerts* [...] W/U Status Risk Notes Problem Lumbar radiculopathy (116466217) Lumbar radiculopathy (M54.16) Active confirmed Problem Lumbosacral spondylosis without myelopathy (40048895) Other spondylosis, lumbar region (M47.896) Active confirmed Problem Lumbosacral spondylosis without myelopathy (85991723) Other spondylosis, lumbosacral region (M47.897) Active confirmed Problem Spinal stenosis of lumbar region (04613948) Spinal stenosis, lumbosacral region (M48.07) Active confirmed Problem Disorder of lumbar disc (588666205) Other intervertebral disc disorders, lumbar region (M51.86) Active confirmed Problem Disorder of lumbosacral intervertebral disc (006544241) Other intervertebral disc disorders, lumbosacral region (M51.87) Active confirmed Problem Spasm of back muscles (187031089) Muscle spasm of back (M62.830) Active confirmed Problem Spasm (64726506) Other muscle spasm (M62.838) Active confirmed Problem Muscle pain (30476366) Myalgia, other site (M79.18) Active confirmed Problem Low back pain (753498835) Low back pain, unspecified (M54.50) Active confirmed Problem Lumbosacral spondylosis without myelopathy (58319462) Spondylosis w/o myelopathy or radiculopathy, lumbar region (M47.816) Active confirmed Problem Lumbosacral spondylosis without myelopathy (72995057) Spondyls w/o myelopathy or radiculopathy, lumbosacr region (M47.817) Active confirmed Plan Of Treatment Pending Test Test Name Order Date 22952 Lumbar/Caudal WILFRID 05/04/2022 Future Test Test Name Order Date 24197 Lumbar/Caudal WILFRID 08/05/2022 Insurance Providers Payer Name Payer Address Payer Phone Subscriber Number Group Number Insured Name Patient Relationship to Insured Coverage Start Date Coverage End Date [facility] DUAL COMP MDCR HMO [address] [address] [place] [address] [id number] Florentin Begum Self - patient is the insured 3 [employer] [place] [address] [address] [place], [place] [id number] Raine Florentin Self - patient is the insured 3 Medical (General) History Medical History History ICD Code diabetes stroke Surgical History Surgery Date(Month/Year) Appendectomy
--- OUTSIDE RECORDS SUMMARY | 2025-03-09 13:50 | XMS_ITS | Patient Health Record ---
Author Organization [facility] Address [address] [place] [address] Care Team Providers Care Lode Miner Name Role Phone José Frazier MD Primary Care Provider Luis Pan Unavailable [phone] Allergies No Known Allergies Reason For Referral No Information Medications Medication SIG (Take, Route, Frequency, Duration) Notes Start Date End Date Status Omeprazole 40 MG 1 capsule 30 minutes before morning meal Orally Once a day; Duration: 90 days Active Tresiba FlexTouch 100 UNIT/ML inject 30 units Subcutaneous daily; Duration: 100 days Active Pen [place] 32G X 6 MM use with insulin [...] Status W/U Status Risk Notes Problem Hypercalcemia (14567734) Hypercalcemia (E83.52) Active confirmed Problem 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 mellitus (227165673) Type 2 diabetes mellitus with other diabetic neurological complication (E11.49) Active confirmed Problem Vitamin D deficiency (68940066) Vitamin D deficiency (E55.9) Active confirmed Problem Dyslipidemia (301862516) Dyslipidemia (E78.5) Active confirmed Problem Type 2 diabetes mellitus with hyperglycemia (E11.65) Active confirmed Problem Essential hypertension (88373753) Essential (primary) hypertension (I10) Active confirmed Problem Disorder of calcium metabolism (86816564) 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
--- NOTE | 2025-03-09 14:20 | A.OFFPC_ITS ---
Vital Signs 03/09/25 14:24 Height 5 ft 9.75 in Weight 160 lb BMI 23.1 BP 94/53 L Blood Pressure Location Lt brachial Position Sitting Respiration 16 Pulse 90 Pulse Source Pulse Oximeter Temp 98 F Temp Source Oral Pulse Oximetry (%) 98 Oxygen Delivery Method Room Air Intake Visit Reasons: f/u diabetes Intake Note: patient here for follow up on DM Firmware Software Verification Engineer Required: No Allergies No Known Allergies Allergy (Verified 03/09/25 14:22) Medication List - Last Reconciled 03/09/25 by Joao Stanford MD blood pressure monitor Automatic, Digital. Dx: I10. Daily As directed, 999 days/lifetime clotrimazole 1% 1 appl topical BID 4 weeks dapagliflozin propanediol (Farxiga) 10 mg PO DAILY 90 days flash glucose sensor (FreeStyle Dori 2 Sensor kit) As directed glipizide ER 5 mg PO QAM 90 days insulin degludec (Tresiba FlexTouch U-100 insulin) 10 units subcut DAILY insulin lispro (Humalog KwikPen (U-100) Insulin) subcut lidocaine 1.8% (ZTlido) 1 patch topical DAILY 30 days metformin 1,000 mg PO BID metoprolol succinate ER 12.5 mg (1/2 x 25 mg) PO DAILY 90 days omeprazole 40 mg PO DAILY 90 days pen needle, diabetic (NovoFine Plus) As directed rosuvastatin 40 mg PO DAILY 90 days sacubitril-valsartan 24-26 mg (Entresto) 1 tab PO BID 90 days tadalafil (Cialis) 10 mg PO .PRN PRN 30 days tadalafil (Cialis) 5 mg PO DAILY 90 days tirzepatide (Mounjaro) mg subcut tizanidine 4 mg PO BEDTIME PRN 30 days trazodone 100 mg PO DAILY 30 days Tobacco use date assessed: 03/09/25 Fall risk assessment: No Falls in past year Last assessed Fall Risk: 03/09/25 Dental Screening Dental Screen Date: 03/09/25 Did you have a dental visit in the last 12 months?: Yes Did you have a dental problem in the last 6 months where you did not have access to dental care?: No Was dental information given to patient?: Patient has dentist HPI f/u diabetes HPI Details 64 y/o male presents to f/u diabetes, HT N. Last A1c 01/23/25 7.2%. Pt notes he sometimes gets low blood sugars in the morning in the 60s. He notes he has been doing well with his diet. A1c today 7.1%. Blood pressure today 94/53, 90p. He is on metoprolol 12.5mg daily. [facility] Medical History Back pain Smoker Insomnia Amputated toe of left foot Anemia Low testosterone Hyperlipidemia Hypertension Carotid atherosclerosis Erectile dysfunction associated with type 2 diabetes mellitus Lumbar degenerative disc disease Gall bladder disease Finding of floating rib Spine disorder Pacemaker Stroke Diabetes 1.5, managed as type 2 Surgical History History of appendectomy Social History Household Members: None Both parents involved: No Caregiver staying overnight: No Housing: Apartment Are you a primary respiratory care technician to a significant other at home: No Do you presently have visiting nurse or other home services: No 75 years or older and lives alone: No Alcohol intake: current Alcohol intake frequency: a few times a month Alcohol type: other Comment: single malt scotch Patient Tobacco Use Status: Current everyday Tobacco user Cigarette Packs Per Day: 1 Cigarettes Per Day: 15 Years Smoked: 45 e-Cigarette/Vaping Use: Never Used Second Hand Smoke Exposure: No Substance Use Type: Marijuana Special yamilex needs: No service: No Current occupational status: retired Cognitive needs: No Hearing needs: No Vision needs: No Questionnaire Thrive Questionnaire Date Thrive assessed: 09/25/24 I am a: Patient What is your living situation today?: I choose not to answer this question Within the past 12 months, did the food you bought not last and you didn't have the money to get more?: I choose not to answer this question Within the past 12 months, did you worry whether your food would run out before you got money to buy more?: I choose not to answer this question Do you have trouble paying for medicines?: I choose not to answer this question Do you have trouble getting transportation to medical appointments?: I choose not to answer this question Do you have trouble paying your heating and electricity bill?: I choose not to answer this question Do you have trouble taking care of your child, family member or friend?: I choose not to answer this question Do you have trouble with day-to-day activities such as bathing, preparing meals, shopping, managing finances, etc.?: I choose not to answer this question Are you currently unemployed and looking for a job?: I choose not to answer this question Are you interested in more education?: I choose not to answer this question Please select the resources that you would like help with: None Currently or been in a relationship where the following occur: I choose not to answer THRIVE Score: 0 BELTRAN-7 AMB Questionnaire BELTRAN-7 Date BELTRAN - 7 assessed: 11/24/23 Source: Developed by Drs. Mega Teresa, Berenice Hardin, Rroy Hewitt and colleagues, with an educational claudine from [employer]. Review of Systems Const Denies chills, Denies fatigue, Denies fever(s), Denies headache(s) and Denies weakness ENT Denies dizziness and Denies headache(s) Card Denies dyspnea Resp Denies cough, Denies dyspnea, Denies wheezing and Denies other (shortness of breath) Musc Denies numbness and Denies tingling Neuro Denies dizziness, Denies headache(s), Denies numbness, Denies tingling and De nies weakness Psych Denies anxiety and Denies depression Endo Denies fatigue Aller/Immun Denies wheezing Physical exam (Primary Care) Vital Signs: Last Vital Signs Temp 98 F 03/09/25 14:24 Pulse 90 03/09/25 14:24 Resp 16 03/09/25 14:24 BP 94/53 L 03/09/25 14:24 Pulse Ox 98 03/09/25 14:24 Oxygen Delivery Method Room Air 03/09/25 14:24 BMI result Body Mass Index 23.1 Tobacco/Smoking Status: Tobacco use Status Tobacco use date assessed 03/09/25 03/09/25 14:31 Patient Tobacco Use Status Current everyday Tobacco 03/09/25 14:20 e-Cigarette/Vaping Use Never Used 03/09/25 14:20 Thrive Assessment: Date of Thrive Assessment Date Thrive assessed 09/25/24 03/09/25 14:20 Currently or been in a relationship where the following occur: I choose not to answer Const General: well developed; No acute distress Nutritional Appearance: well nourished Orientation/consciousness: patient oriented x3 HENMT Head: Yes normocephalic and Yes atraumatic Eyes General: appearance normal, both eyes and all related structures Pupils: Equal, round and reactive pupils present EOM: EOMs intact bilaterally Resp Effort & Inspection: normal respiratory effort Neuro General: patient oriented x3 and gait normal Cranial nerves: Yes Equal, round and reactive pupils present Psych Affect: normal affect Coding Level of Care Code Est Pt Level 4 (54713) Diagnoses Diabetes E11.9 Hypertension I10 Carotid atherosclerosis I65.29 Assessment & Plan Assessment & Plan (1) Diabetes: Code(s): E11.9 - Type 2 diabetes mellitus without complications Category: Medical Plan: A1c 7.1% Fair control for 64-year-old patient. Continue current medication regimen and continue diet low in sugars and starches (2) Hypertension: Code(s): I10 - Essential (primary) hypertension Category: Medical Plan: Blood pressure is low again At last visit had had him decrease metoprolol. He will stop this. Will follow-up again at next visit (3) Carotid atherosclerosis: Code(s): I65.29 - Occlusion and stenosis of unspecified carotid artery Category: Medical Plan: Continue rosuvastatin Continue to monitor blood pressure and blood sugar Patient says he had cardiology with [facility] but no longer sees them and requests referral to [facility] Cardiology. Referred Orders: Referrals Cardiology Referral I65.29 - Occlusion and stenosis of unspecified carotid artery
[2025-03-09 14:24] VITALS: BP 94/53; PULSE 90; RESP 16; TEMP 36.6; O2SAT 98; BMI 23.1
== END 2025-03-09 14:59 | disposition home or self-care (01) ==
LOC: HO.HMCFM 13:48
PROVIDERS: PCP Family Medicine; Visit Provider Family Medicine
DX: E11.9 Type 2 diabetes mellitus without complications (principal); I10 Essential (primary) hypertension; I65.29 Occlusion and stenosis of unspecified carotid artery

== ENCOUNTER → 2025-03-09 13:47 | Outpatient (BNVA) | payer OTHER, SELFPAY | PROVIDERS: PCP Family Medicine; Visit Provider Family Medicine | DX: E11.9 Type 2 diabetes mellitus without complications (principal); I10 Essential (primary) hypertension; I65.29 Occlusion and stenosis of unspecified carotid artery | CPT/HCPCS: 99212 ==

== ENCOUNTER 2025-03-22 12:55 | Outpatient (AMB) | payer OTHER, SELFPAY ==
--- NOTE | 2025-03-22 13:00 | MHC.OFFVIS ---
Vital Signs 03/22/25 13:10 Height 5 ft 9.75 in Weight 160 lb BMI 23.1 Intake Visit Reasons: New Pt - Diabetic Foot Exam, Toe Fungus Intake Note: Florentin is a 64 year old male who presents today as a New Patient for a Bilateral diabetic foot exam & toenail fungus. Hx of Left small toe amputation. Patient reports concern for possible infection of his right 2nd toe. He has been trying to keep it dry and putting triple antibiotic on it . He also tried trimming it himself as it was cutting into his 3rd toe. He was evaluated by his supervisor soakers who recommended he keeps the toe nail dry. He would like to have his toe nails trimmed today. Patient also expresses concern for redness on the dorsal aspect of the right food. He denies no oral treatment for his concerns today. Allergies No Known Allergies Allergy (Verified 03/22/25 13:03) Medication List - Last Reconciled 03/22/25 by Benson Ferrell DPM blood pressure monitor Automatic, Digital. Dx: I10. Daily As directed, 999 days/lifetime clotrimazole 1% 1 appl topical BID 4 weeks dapagliflozin propanediol (Farxiga) 10 mg PO DAILY 90 days flash glucose sensor (FreeStyle Dori 2 Sensor kit) As directed glipizide ER 5 mg PO QAM 90 days insulin degludec (Tresiba FlexTouch U-100 insulin) 10 units subcut DAILY insulin lispro (Humalog KwikPen (U-100) Insulin) subcut metformin 1,000 mg PO BID metoprolol succinate ER 12.5 mg PO DAILY omeprazole 40 mg PO DAILY 90 days pen needle, diabetic (NovoFine Plus) As directed rosuvastatin 40 mg PO DAILY 90 days sacubitril-valsartan 24-26 mg (Entresto) 1 tab PO BID 90 days sulfamethoxazole-trimethoprim 800-160 mg (Bactrim DS) 1 tab PO BID tadalafil (Cialis) 10 mg PO .PRN PRN 30 days tadalafil (Cialis) 5 mg PO DAILY 90 days tirzepatide (Mounjaro) mg subcut trazodone 100 mg PO DAILY 30 days HPI HPI New Pt - Diabetic Foot Exam, Toe Fungus: Details: 64-year-old male with past medical history of diabetes mellitus type 2, hyperlipidemia, history of stroke, history of left foot digital amputations, presents today for initial evaluation of diabetic foot care and right 2nd toe wound. Patient states that his right big toenail was pressing into a 2nd toe and create an ulcer. He has noticed increased swelling and redness for the past 10 days. He has been performing local wound care at home. He has noticed increased swelling to his right leg over the past 2 weeks. He denies nausea vomiting fever shortness of breath or chills. [facility] Medical History Back pain Smoker Insomnia Amputated toe of left foot Anemia Low testosterone Hyperlipidemia Hypertension Carotid atherosclerosis Erectile dysfunction associated with type 2 diabetes mellitus Lumbar degenerative disc disease Gall bladder disease Finding of floating rib Spine disorder Pacemaker Stroke Diabetes 1.5, managed as type 2 Surgical History History of appendectomy Social History Household Members: None Both parents involved: No Caregiver staying overnight: No Housing: Apartment Are you a primary pharmacy customer care specialist to a significant other at home: No Do you presently have visiting nurse or other home services: No 75 years or older and lives alone: No Alcohol intake: current Alcohol intake frequency: a few times a month Alcohol type: other Comment: single shaun angelo Patient Tobacco Use Status: Current everyday Tobacco user Cigarette Packs Per Day: 1 Cigarettes Per Day: 15 Years Smoked: 45 e-Cigarette/Vaping Use: Never Used Second Hand Smoke Exposure: No Substance Use Type: Marijuana Special yamilex needs: No service: No Current occupational status: retired Cognitive needs: No Hearing needs: No Vision needs: No Review of Systems Const Details: Patient denies N/V/F/C/SOB/CP. All systems reviewed & are unremarkable except as noted in HPI and below Denies body aches, Denies chills, Denies excessive sweating, Denies fatigue and Denies fever(s) Endo Denies excessive sweating and Denies fatigue Physical Exam Vital Signs: BMI result Body Mass Index 23.1 Extrem Other: *Bilateral Lower Extremity Focused Diabetic Foot Exam Vascular: DP/PT 1/4, CFT<3s to digits including right 2nd toe, TG warm to warm right foot, +1 pitting edema to the right foot, perimalleolar region, and pretibial. Derm: Skin: 1 cm x 1 cm ulcer to the medial aspect of the 2nd middle phalanx with liquefaction necrosis base, down to the level of fascia. Periwound erythema, cyanotic discoloration to the 2nd digit. Interdigital spaces: Clear, no maceration or fungal infection. Nails: Elongated discolored thickened nails bilaterally. Neuro: Protective sensation grossly diminished to bilateral lower extremities. Msk: Deformities: Rotational angular deformities of left 2nd and 4th toe, and right 1st to 5th toes. Muscle strength: 5/5 in all muscle groups. Gait: Normal, no antalgic or steppage gait observed. Footwear Assessment: Shoes inspected; appropriate fit, no excessive wear, or foreign objects noted. Office Procedures AMB Debridement/Avulsion Podia 30322-Iyeeuejdmdt of Nail 6+ (Debrided elongated nails x8 using sterile nail Nipper) Procedure code (CPT) selection complete AMB Podiatry Dressing Additional procedure code (CPT) needed (49364 dressing of right foot and ankle) Results Reviewed Results Reviewed: Laboratory Tests 03/21/25 16:12 Hgb A1c (Clinic) 7.1 H Assessment & Plan Assessment & Plan (1) Diabetic ulcer of right foot: Code(s): E11.621 - Type 2 diabetes mellitus with foot ulcer; L97.519 - Non-pressure chronic ulcer of other part of right foot with unspecified severity Category: Medical Qualifiers: Diabetic foot ulcer location: toe Diabetes mellitus type: type 2 Non-pressure ulcer stage: with necrosis of muscle Qualified Code(s): E11.621 - Type 2 diabetes mellitus with foot ulcer; L97.513 - Non-pressure chronic ulcer of other part of right foot with necrosis of muscle Plan: Explained to the patient that he has clinical findings of active right foot infection and cellulitis which appears system from his right 2nd digit. Explained that he is at high-risk of osteomyelitis/bone infection due to the depth of his wound infection. It was also explained that he is at high risk of amputation to the 2nd digit. Patient was recommended immediate presentation to the emergency room for IV antibiotics, x-rays/MRI evaluation to evaluate for osteomyelitis, and possible surgical treatment which could include 2nd toe amputation. Patient states that he is unable to go to the emergency room today due to family commitments, however states that he will go to the emergency room tomorrow as soon as possible. Rx Bactrim DS. Patient was instructed to draft roller picker antibiotics today to begin treatment to begin treatment of his infection. The right 2nd toe ulcer was cleansed and dressed with Betadine, Silvadene ointment, 4 x 4 gauze, Oracio, and Dion compression bandage of his foot and ankle. (2) Cellulitis of second toe, right: Code(s): L03.031 - Cellulitis of right toe Category: Medical Plan: Right 2nd toe and foot infection. (3) Tinea unguium: Code(s): B35.1 - Tinea unguium Category: Medical Plan: Debrided elongated thickened toenails x8 bilaterally. Explained that the Patient's right hallux mycotic nail had caused a perforation and ulcer formation to his right 2nd toe. Orders: Orders AMB Debridement/Avulsion Podiatry Today E11.621 - Type 2 diabetes mellitus with foot ulcer, L03.031 - Cellulitis of right toe, L97.519 - Non-pressure chronic ulcer of other part of right foot with unspecified severity AMB Podiatry Dressing Today E11.621 - Type 2 diabetes mellitus with foot ulcer, L03.031 - Cellulitis of right toe, L97.519 - Non-pressure chronic ulcer of other part of right foot with unspecified severity Medications: New sulfamethoxazole-trimethoprim 800-160 mg (Bactrim DS) 1 tab PO BID 14 tabs 0RF cellulitis L03.031 - Cellulitis of right toe Coding Level of Care Code New Pt Level 5 (54805) Diagnoses Diabetic ulcer of toe of right foot associated with type 2 diabetes mellitus, with necrosis of muscle E11.621; L97.513 Diabetic foot ulcer location: toe Diabetes mellitus type: type 2 Non-pressure ulcer stage: with necrosis of muscle Cellulitis of second toe, right L03.031 Tinea unguium B35.1 CPT Codes Skin Debridement - CPT: 49724-Itbyjqgqoog of Nail 6+ ([id number]) Podiatry Dressing - All charges added?: Additional procedure code (CPT) needed ([id number]) Time Spent (min) 45 Comment Patient was recommended to urgently go to the ER
[2025-03-22 13:10] VITALS: BMI 23.1
--- OUTSIDE RECORDS SUMMARY | 2025-03-22 17:03 | XMS_ITS | Patient Health Record ---
Author Organization [facility] Address [address] [place] [address] Care Team Providers Care Sustainability Project Coordinator Name Role Phone José Frazier MD Primary Care Provider Luis Pan Unavailable [phone] Allergies No Known Allergies Reason For Referral No Information Medications Medication SIG (Take, Route, Frequency, Duration) Notes Start Date End Date Status Omeprazole 40 MG 1 capsule 30 minutes before morning meal Orally Once a day; Duration: 90 days Active Tresiba FlexTouch 100 UNIT/ML inject 30 units Subcutaneous daily; Duration: 100 days Active Pen Mallard 32G X 6 MM use with insulin [...] Status W/U Status Risk Notes Problem Hypercalcemia (92330975) Hypercalcemia (E83.52) Active confirmed Problem 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 mellitus (671985043) Type 2 diabetes mellitus with other diabetic neurological complication (E11.49) Active confirmed Problem Vitamin D deficiency (68219379) Vitamin D deficiency (E55.9) Active confirmed Problem Dyslipidemia (043169989) Dyslipidemia (E78.5) Active confirmed Problem Hyperglycemia due to type 2 diabetes mellitus (132096684505094) Type 2 diabetes mellitus with hyperglycemia (E11.65) Active confirmed Problem Essential hypertension (39415831) Essential (primary) hypertension (I10) Active confirmed Problem 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 Problem Abnormal result, function study of peripheral nervous system / special senses (007769829) Abnormal results of function studies of other [...] Insured Coverage Start Date Coverage End Date [facility] DUAL [employer]PLETE PPO [employer] [address] [address] [place] [address] [id number] QMB Florentin Ni Self - patient is the insured Medical (General) History Medical History History ICD Code Diabetes HTN Hyperlipidemia GERD Surgical History Surgery Date(Month/Year) Screws right ankle Toe amputation left foot Appendectomy 06/2020 Hospitalization History Reason Date(Month/Year) Appendectomy 06/2020
--- OUTSIDE RECORDS SUMMARY | 2025-03-22 17:03 | XMS_ITS | Continuity of Care Document ---
Author Organization [facility] [address] [place] [address] Phone [phone] Problems Active Problems Provider Date Type 2 [...] SIG Qnty Indications Order ing Provider Date Rsnvyrof9ue/0.5ML Solution Auto-Inject inject 5 mg subcutaneously once weekly 2ml Sarah Li NP 11/15/2024 Pen Uatujfj95X X 4 mm Misc use one needle with insulin tacos, use three times a day 100units Mona Muhammad M.D. 08/16/2024 Freestyle Dori 2/[place]/Flash Glucose Monitoring Ceszzw4Rrmpvm Device use as directed with sensors 1units E11.9 Mona Muhammad M.D. 09/20/2023 Freestyle Dori 2/Sensor/Flash Glucose Monitoring Hteyey0Heizgy Misc 1 sensor to skin every fourteen days as directed dx: e11.9 3units E11.9 Mona Muhammad M.D. 09/20/2023 Ztlido1.8% Patches 1 patch daily Unknown Aspirin 8181mg Tablets DR 1 by mouth every day Unknown 00/00/0 000 Ketoconazole2% Cream Unknown Accu-Chek GuideStrips Unknown Iaalzbo15kw Tablets Take 1 tablet by mouth daily 90tabs Mona Muhammad M.D. Tresiba Pqwwpycrj499Dnhu/ML Solution Pen-Inject Administer 30 Units Under The Skin Daily 30units E11.21 Mona Muhammad M.D. Qikogrnfoq60qb Capsules DR Take 1 capsule by mouth daily 90caps Mona Muhammad M.D. Metformin WYQ9220lk Tablets Take 1 Tablet By Mouth Twice Daily 180tabs Mona Muhammad M.D. Accu-Chek GuideStrips Unknown Rosuvastatin Voganit56hy Tablets Take 1 tablet by mouth daily Unknown Losartan Ozxjjxptu00dt Tablets Take 1 tablet by mouth daily Unknown Trazodone UUI324nu Tablets Take 1 tablet by mouth at bedtime as needed Unknown History Medications Mounjaro2.5mg/0.5ML Solution Auto-Inject inject 0.5ml injection subcutaneously weekly 2ml Mona Muhammad M.D. 08/16/2024 - 11/15/2024 Vital Signs Date Vital Result Comment 03/19/2025 12:59pm BP Systolic 110 mmHg BP Diastolic 60 mmHg Heart Rate 75 /min Height 59 inches 4'11 Weight 165.25 lb BMI (Body Mass Index) 33.4 kg/m2 Results Test Acquired Date Facility Test Result H/L Range N ote Glucose Fingerstick 03/19/2025 Inhouse Glucose Fingerstick 181 Glucose Fingerstick 11/15/2024 Inhouse Glucose Fingerstick 170 Hemoglobin A1c 11/15/2024 Inhouse Hemoglobin A1c 7.6% Glucose Fingerstick 08/16/2024 Inhouse Glucose Fingerstick 155 [...] 09/17/2023 Inhouse Hemoglobin A1c 8.2% 1 Test(s) 341528-Mykis terone was developed and its performance characteristics determined by [facility]. It has not been cleared or approved by the Food and Drug Administration. Test(s) 502462-Nefqh Activity, Plasma was developed and its performance characteristics determined by [facility]. It has not been cleared or approved by the Food and Drug Administration. 2 Normal: 0 - 29 Moderately increased: 30 - 300 Severely increased: >300 Procedures Date Code Description Status 12/29/2023 01146 Glucose Monitoring Interpeta tion And Report Completed Medical Devices Description No Information Available Encounters Type Date Location Provider Dx Diagnosis Office Visit 03/19/2025 1:00p Main Office Sarah Li NP E11.9 Type 2 diabetes mellitus without complications I10 Essential (primary) hypertension E78.5 Hyperlipidemia, unsp ecified Assessments Date Code Description Provider 03/19/2025 E11.9 Type 2 diabetes mellitus wit hout complications Sarah Li NP 03/19/2025 I10 Essential (primary) hyperten neno Sarah Li NP 03/19/2025 E78.5 Hyperlipidemia, unspecified Sarah Li NP Plan of Treatment Future Appointment(s):* 06/19/2025 11:00 am - Sarah Li NP at Main Office 03/19/2025 - Sarah Li NP* E11.9 Type 2 diabetes mellitus without complications * I10 Essential (primary) hypertension * E78.5 Hyperlipidemia, unspecified Functional Status Description No Information Available Mental Status Description No Information Available Referrals Refer to Reason for Referral Status Appt Oleg Lisa Zuniga DPM [facility] Closed [address] [place] [id number] [phone]
--- OUTSIDE RECORDS SUMMARY | 2025-03-22 17:03 | XMS_ITS | Patient Health Record ---
Author Organization [employer] [facility] Address [address] [facility] [address] [place] [address] Care Team Providers Care Vest Presser Name Role Phone José Frazier Primary Care Provider Unavailab Hernadez JAYLA Unavailable [phone] Allergies No Known Allergies Reason For Referral No Information Medications Medication SIG (Take, Route, Frequency, Duration) Notes Start Date End Date Status Omeprazole 40 MG Capsule Delayed Release Oral Unknown metFORMIN HCl 1000 MG Tablet Oral Unknown Farxiga 10 MG Tablet Oral Unknown Accu-Chek Dilia Plus - Strip In Vitro Unknown Rosuvastatin Calcium 40 MG Tablet Oral Unknown traMADol HCl 50 MG Tablet Oral Unknown Tresiba FlexTouch 100 UNIT/ML Solution Pen-injector Subcutaneous Unknown Aspirin Adult Low Dose 81 MG Tablet Delayed Release Take 1 oral Oral Unknown tiZANidine HCl 4 MG Tablet 1 tablet as needed Orally Three times a day; Duration: 30 days NON ACUTE PAIN Active OZEMPIC 1MG PER DOSE (1X4MG PEN) *Reorder from [employer] for eRx and Interaction Alerts* Unknown ZTlido 1.8 % Patch 1 patch remove after 12 hours Externally Once a day; Duration: 30 days non acute pain Active traZODone HCl 100 MG Tablet Oral Unknown Social History Tobacco Use: Social History Observation Description Date Details (start date - stop date) Current Smoker NA - NA Sex Assigned At : Social History Observation Description Sex Assigned At Male Social History Drugs/Alcohol: Social Info Question Answer Notes Alcohol Screen (Audit-C) Did you have a drink containing alcohol in the past year? Yes How often did you have a drink containing alcohol in the past year? Monthly or less (1 point) How many drinks did you have on a typical day when you were drinking in the past year? 1 or 2 drinks (0 point) How often did you have 6 or more drinks on one occasion in the past year? Never (0 point) Points 1 Interpretation Negative Drugs Have you used drugs other than those for medical reasons in the past 12 months? No Tobacco Use: Social Info Question Answer Notes Tobacco Use/Smoking Tobacco use: current smoker Additional Details Category Social Info Options Details Drugs/Alcohol: Do you smoke marijuana? De nies Do you drink alcohol? Socially Do you have medical marijuana card? No Problems Problem Type SNOMED Code ICD Code Onset Dates Problem Status W/U Status Risk Notes Problem Lumbar radiculopathy (677177055) Lumbar radiculopathy (M54.16) Active confirmed Problem Lumbosacral spondylosis without myelopathy (67790848) Other spondylosis, lumbar region (M47.896) Active confirmed Problem Lumbosacral spondylosis without myelopathy (40331222) Other spondylosis, lumbosacral region (M47.897) Active confirmed Problem Spinal stenosis of lumbar region (60771971) Spinal stenosis, lumbosacral region (M48.07) Active confirmed Problem Disorder of lumbar disc (100345867) Other intervertebral disc disorders, lumbar region (M51.86) Active confirmed Problem Disorder of lumbosacral intervertebral disc (461033111) Other intervertebral disc disorders, lumbosacral region (M51.87) Active confirmed Problem Spasm of back muscles (756237547) Muscle spasm of back (M62.830) Active confirmed Problem Spasm (96074712) Other muscle spasm (M62.838) Active confirmed Problem Muscle pain (31361983) Myalgia, other site (M79.18) Active confirmed Problem Low back pain (806453439) Low back pain, unspecified (M54.50) Active confirmed Problem Lumbosacral spondylosis without myelopathy (61113186) Spondylosis w/o myelopathy or radiculopathy, lumbar region (M47.816) Active confirmed Problem Lumbosacral spondylosis without myelopathy (21063289) Spondyls w/o myelopathy or radiculopathy, lumbosacr region (M47.817) Active confirmed Plan Of Treatment Pending Test Test Name Order Date 29351 Lumbar/Caudal WILFRID 05/04/2022 Future Test Test Name Order Date 10304 Lumbar/Caudal WILFRID 08/05/2022 Insurance Providers Payer Name Payer Address Payer Phone Subscriber Number Group Number Insured Name Patient Relationship to Insured Coverage Start Date Coverage End Date [facility] [employer] H[employer] [address] [address] [place] [address] [id number] Florentin Begum Self - patient is the insured 3 [facility] [place] [address] [address] [place], [place] [id number] Florentin Ni Self - patient is the insured 3 Medical (General) History Medical History History ICD Code diabetes stroke Surgical History Surgery Date(Month/Year) Appendectomy
== END 2025-03-22 13:42 | disposition home or self-care (01) ==
LOC: HO.HPODS 12:56
PROVIDERS: PCP Family Medicine; Visit Provider Student in an Organized Health Care Education/Training Program
DX: E11.621 Type 2 diabetes mellitus with foot ulcer (principal); L97.513 Non-pressure chronic ulcer of other part of right foot with necrosis of muscle; L03.031 Cellulitis of right toe; B35.1 Tinea unguium
CPT/HCPCS: 11721; 99204

== ENCOUNTER → 2025-03-22 12:55 | Outpatient (BNVA) | payer OTHER, SELFPAY | PROVIDERS: PCP Family Medicine; Visit Provider Student in an Organized Health Care Education/Training Program | DX: E11.621 Type 2 diabetes mellitus with foot ulcer (principal); L97.513 Non-pressure chronic ulcer of other part of right foot with necrosis of muscle; L03.031 Cellulitis of right toe; B35.1 Tinea unguium | CPT/HCPCS: 11721; 99202 ==

== ENCOUNTER 2025-03-22 15:40 | Inpatient (IN) | payer OTHER, SELFPAY ==
--- NOTE | ~2025-03-22 | XR_ITS ---
EXAMINATION: XR TOES, RIGHT CLINICAL INFORMATION: 2nd digit wound r/o osteo COMPARISON: None available. TECHNIQUE: 3 views of the right toes were obtained. FINDINGS: There is osteopenia involving the medial half of the distal and middle phalanx of the second digit. There is loss of cortex at the medial base of the distal phalanx and involving the medial diaphysis and distal Severe degenerative changes and deformity are noted at the first metatarsophalangeal joint with asymmetric joint space narrowing, marginal ossified, and flattening of the subchondral bone. There are also degenerative changes involving the first tarsometatarsal joint with osteophytes and joint space narrowing. There is a medullary screw placed across the medial malleolus. Metaphysis of the middle phalanx. The cortex is also indistinct involving the medial metaphysis of the proximal phalanx head. XR/XR toe RT min 2V IMPRESSION: There are changes consistent with osteomyelitis in the second digit involving the middle phalanx, base of the distal phalanx, and possibly the distal metaphysis of the proximal phalanx with cortical erosions along the medial side, as described above. There are severe degenerative changes involving the first MTP joint and moderate changes of the first TMT joint. Electronically signed by: Marcus Sidhu MD 03/22/2025 04:33 PM EDT
--- NOTE | ~2025-03-22 | US_ITS ---
CLINICAL HISTORY: nonhealing ulcer --- Additional Notes or Special Instructions: Please do bilateral art US with limited GIDEON. If indicated Bilateral Ankle-brachial index Comparison: None provided Findings: Right Side: PT: 1.8 DP: 1.2 Left side: PT: 0.8 DP: 0.9 Impression: Elevated right ankle brachial index measurements Normal left ankle-brachial index Bilateral lower extremity arterial duplex ultrasound Comparison: None provided . Findings: Triphasic flow noted above the knees bilaterally. Monophasic flow noted right SFA to foot. Velocity elevation noted right mid SFA 170 cm/sec. This indicates significant disease proximal right SFA. Triphasic flow predominantly seen below left knee. No velocity alteration noted on the left. Impression: Moderate right proximal SFA stenosis This document has been electronically signed by: Glen Greene MD on 03/23/2025 20:10:48
--- NOTE | ~2025-03-22 | CT_ITS ---
CLINICAL HISTORY: abd pain CT abdomen and pelvis without IV or oral contrast Comparison: CR/SR - XR HIP BI W PEL1V - 10/26/24 12:35 EDT Findings: Lung bases show no active disease. No dependent layering pleural effusions. The heart is not enlarged. Nonspecific perinephric stranding. Punctate caliceal stones left kidney. No urolithiasis or evidence of obstructive uropathy. Well-distended urinary bladder. Evaluation of the liver, spleen, adrenal glands and pancreas demonstrates no lesions. It should be noted that isodense masses may be obscured in the absence of intravenous contrast. Layering gallstones. Heavy stool burden. Mesenteric edema. Mild anasarca. No pathologically enlarged lymph nodes . No ascites demonstrated. Moderate calcified atherosclerotic disease. No vertebral body compression fractures or spondylolisthesis. No bony destructive lesions. Marked discogenic changes L5-S1. Impression: 1. Punctate caliceal stones. No evidence of obstructive uropathy. Nonspecific perinephric stranding. Well-distended urinary bladder. 2. Cholelithiasis. Heavy stool burden throughout the colon. Calcified atherosclerotic disease. 3. Motion and lack of contrast may obscure subtle pathology. This document has been electronically signed by: Demetrio Tellez MD on 03/23/2025 05:55:57
[2025-03-22 15:58] VITALS: BP 105/57; PULSE 98; RESP 16; TEMP 37.2; O2SAT 99; BMI 23.0
--- NOTE | 2025-03-22 16:04 | ED.GENADULT ---
HPI - General Adult General Chief complaint: Wound/Laceration Stated complaint: sore right foot (sent by ? bone infection) Time Seen by Provider: 03/22/25 20:11 Source: patient Limitations: no limitations History of Present Illness ED Provider: Destinee Smart PA-C HPI narrative: 64-year-old male with a history of diabetes, hypertension, hyperlipidemia, prior diabetic ulcer of the right foot, onychomycosis, chronic back pain, who presents with right foot infection times 10 days. Patient states he just noticed concern for infection of the right 2nd toe. Associated redness and swelling with discomfort. Denies fever or purulent drainage from the site. This is the 1st assessment the patient has had. Related Data Home Medications ?Medication ?Instructions ?Recorded ?Confirmed flash glucose sensor (FreeStyle 11/24/23 03/22/25 Dori 2 Sensor kit) pen needle, diabetic 32 gauge x 11/24/23 03/22/2507/17 (NovoFine Plus) metformin 1,000 mg tablet 1,000 mg PO BID 03/20/24 03/22/25 insulin lispro 100 unit/mL subcut 11/16/24 03/22/25 subcutaneous pen (Humalog KwikPen (U-100) Insulin) tirzepatide 5 mg/0.5 mL mg subcut 12/05/24 03/22/25 subcutaneous pen injector (Mounjaro) insulin degludec 100 unit/mL (3 10 unit subcut DAILY 03/07/25 03/22/25 mL) subcutaneous pen (Tresiba FlexTouch U-100 insulin) metoprolol succinate 25 mg 12.5 mg PO DAILY 03/22/25 03/22/25 tablet,extended release 24 hr Previous Rx's ?Medication ?Instructions ?Recorded rosuvastatin 40 mg tablet 40 mg PO DAILY 90 days #90 tabs 09/18/24 tadalafil 10 mg tablet (Cialis) 10 mg PO .PRN PRN sexual activity 11/09/24 30 days #14 tabs glipizide 5 mg tablet, extended 5 mg PO QAM 90 days #90 tabs 11/13/24 release 24 hr tadalafil 5 mg tablet (Cialis) 5 mg PO DAILY sexual activity 90 12/06/24 days #90 tabs dapagliflozin propanediol 10 mg 10 mg PO DAILY 90 days #90 tabs 12/20/24 tablet (Farxiga) sacubitril 24 mg-valsartan 26 mg 1 tab PO BID 90 days #180 tabs 12/20/24 tablet (Entresto) omeprazole 40 mg capsule,delayed 40 mg PO DAILY 90 days #90 caps 01/03/25 release blood pressure monitor #1 ea 01/23/25 trazodone 100 mg tablet 100 mg PO DAILY 30 days #30 tabs 02/16/25 clotrimazole 1 % topical cream 1 appl topical BID 4 weeks #45 03/07/25 grams sulfamethoxazole 800 1 tab PO BID cellulitis #14 tabs 03/22/25 mg-trimethoprim 160 mg tablet (Bactrim DS) Allergies Allergy/AdvReac Type Severity Reaction Status Date / Time No Known Allergies Allergy Verified 03/22/25 16:06 Review of Systems Review of Systems: Yes all other systems are reviewed and are negative Constitutional: Constitutional: Denies fatigue and Denies fever(s) Cardiovascular: Cardiovascular: Denies chest pain and Denies dyspnea Respiratory: Respiratory: Denies dyspnea Integumentary/Breasts: Skin/Breast: Reports skin swelling, Reports skin ulcer and Reports wounds Endocrine: Endocrine: Denies fatigue PMFSH Past Medical History Attestation statement: The following information was validated with the patient. Medical History Back pain Smoker Insomnia Amputated toe of left foot Anemia Low testosterone Hyperlipidemia Hypertension Carotid atherosclerosis Erectile dysfunction associated with type 2 diabetes mellitus Lumbar degenerative disc disease Gall bladder disease Finding of floating rib Spine disorder Pacemaker Stroke Diabetes 1.5, managed as type 2 Surgical History History of appendectomy Social History Social History Household Members: None Housing: Apartment Are you a primary caregiver services home to a significant other at home: No Do you presently have visiting nurse or other home services: No Alcohol intake: current Alcohol intake frequency: holidays/special occasions only Alcohol type: other Comment: single shaun angelo Patient Tobacco Use Status: Current everyday Tobacco user Cigarette Packs Per Day: 1 Cigarettes Per Day: 15 Years Smoked: 45 Smoked in Last 30 Days: Yes e-Cigarette/Vaping Use: Never Used Second Hand Smoke Exposure: No Use of substances other than those prescribed or required for medical reasons: No Substance Use Type: Marijuana Special yamilex needs: No Advance Directives: No Advance Directives Information Provided: Yes service: No Current occupational status: retired Cognitive needs: No Hearing needs: No Vision needs: No Physical Exam ED Vital Signs: Vital Signs - 24 hr 03/22/25 15:58 03/22/25 20:39 Temperature 98.9 F 98.4 F Pulse Rate 98 96 Respiratory Rate 16 16 Blood Pressure 105/57 L 121/56 L Pulse Oximetry 99 100 Oxygen Delivery Method Room Air Room Air BMI result Body Mass Index 23.0 Const Other: Alert Orientation/consciousness: patient oriented x3 Resp Effort & Inspection: normal respiratory effort Cardio Other: Normal peripheral perfusion Skin Other: Warm dry no rash Neuro General: patient oriented x3, gait normal, no focal motor deficits and CN's II-XI intact bilaterally Extrem Other: Psych Other: Cooperative Course Course Course Narrative: This is a Rapid Medical Examination (RME) performed by Viv Jason PA-C in triage. Full HPI, ROS, assessment and treatment plan per primary provider in the Main ED. Hx: 64 yo M hx of DM here from podiatrists office for 10 days of right 2nd toe pain/swelling/redness - sent here for osteo r/o. Plan: labs, inflammatory markers, xr Medications Administered Discontinued Medications Generic Name Dose Route Start Last Admin Trade Name Freq PRN Reason Stop Dose Admin Piperacillin Sod/Tazobactam 50 mls @ 100 mls/hr 03/22/25 20:36 03/22/25 21:22 Sod 3.375 gm/ Sodium Chloride IV 03/22/25 21:05 100 mls/hr ONCE ONE Administration Medical Decision Making Medical Decision Making [facility] Narrative: 64-year-old male with a history of diabetes, hypertension, hyperlipidemia, prior diabetic ulcer of the right foot, onychomycosis, chronic back pain, who presents with right foot infection times 10 days. Patient states he just noticed concern for infection of the right 2nd toe. Associated redness and swelling with discomfort. Denies fever or purulent drainage from the site. This is the 1st assessment the patient has had. Problem: Diabetes, known diabetic foot ulcer History: Per patient I have considered the following differential diagnoses: Cellulitis, purulent cellulitis, gangrene, osteomyelitis, abscess Plan: Patient has evidence of osteomyelitis on x-ray, labs already completed, including blood cultures and lactic, he is afebrile and stable, starting Bill hernandez, admitting him. I have independently reviewed the following tests: Labs: Leukocytosis with left shift, not anemic mild hyponatremia, creatinine at baseline, no additional electrolyte abnormality, lactic 1.7, CRP 4.75, ESR 29 X-ray right foot: XR/XR toe RT min 2V IMPRESSION: There are changes consistent with osteomyelitis in the second digit involving the middle phalanx, base of the distal phalanx, and possibly the distal metaphysis of the proximal phalanx with cortical erosions along the medial side, as described above. There are severe degenerative changes involving the first MTP joint and moderate changes of the first TMT joint. Differential Diagnosis Differential Diagnoses: The differential diagnosis associated with the presentation includes See medical decision-making Admission/Observation Consideration of admission/observation: Escalation of care including admission/observation considered will be admitted Consult Healthcare Provider Management of the patient was discussed with: Hospitalist and Utility Operator Yarn Admit and likely wound care consult Lab Data MDM Lab Attestation statement: I reviewed the patient's lab results. 03/22/25 16:30 03/22/25 16:30 Labs: Lab Results 03/22/25 03/22/25 03/22/25 Range/Units 16:30 16:51 21:36 WBC 13.0 H (4.8-10.8) X10*3/uL RBC 4.35 L (4.60-5.80) X10*6/uL Hgb 12.0 L (14.0-18.0) g/dl Hct 34.6 L (42.0-52.0) % MCV 79.5 L (80.0-98.0) fL MCH 27.6 (27.0-33.0) pg MCHC 34.7 (31.0-36.0) g/dl RDW 15.8 (11.0-16.0) % Plt Count 434 H (160-400) X10*3/uL MPV 10.2 (9.4-12.4) fL Immature Gran % (Auto) 0.5 H (0.0-0.4) % Neut % (Auto) 74.3 H (45-73) % Lymph % (Auto) 16.3 L (20-40) % [place] % (Auto) 7.8 (2-11) % Eos % (Auto) 0.5 (0-4) % Baso % (Auto) 0.6 (0-2) % Lymph # (Auto) 2.1 (1.2-4.9) X10*3/uL [place] # (Auto) 1.0 (0.1-1.2) X10*3/uL Eos # (Auto) 0.1 (0.0-0.4) X10*3/uL Baso # (Auto) 0.1 (0.0-0.2) X10*3/uL Abs Immat Gran (auto) 0.06 H (0.00-0.03) X10*3/uL Absolute Neuts (auto) 9.7 H (2.0-8.3) x10*3/uL Absolute Nucleated RBC 0.000 (0.0-0.012) X10*3/uL Nucleated RBC % (auto) 0.0 (0.0-0.2) /100WBC ESR 29 H (0-15) MM/HR Sodium 133 L (135-145) mmol/L Potassium 4.8 (3.3-5.1) mmol/L Chloride 102 (96-108) mmol/L Carbon Dioxide 22 (22-29) mmol/L Anion Gap 14 (12-20) BUN 20 H (9-16) mg/dL Creatinine 1.46 H (0.5-1.4) mg/dL Estim Creat Clear Calc 51.0 Estimated GFR 48 POC Glucose 164 H (60-115) mg/dL Random Glucose 193 H (60-115) mg/dL Lactic Acid 1.7 (0.5-2.0) mmol/L Calcium 9.2 (8.4-10.2) mg/dL Magnesium 1.9 (1.6-2.6) mg/dL Total Bilirubin 0.3 (0.0-1.0) mg/dL AST 16 (5-37) U/L ALT 8 (0-40) U/L Alkaline Phosphatase 44 (39-117) U/L C-Reactive Protein 4.75 H (< or = 0.50) mg/dL Total Protein 6.7 (6.5-8.0) g/dL Albumin 4.0 (3.5-5.0) g/dL Radiology Impression Discussion of test interpretation with radiology: I have reviewed the radiologist's reading. Critical Care Time Critical Care Time Critical Care Time: Yes Total Critical Care Time: 35 Attestation: I Destinee Smart PA-C have personally performed 35 minutes critical care time not including lines and procedures; diabetic foot infection/osteo, need for IV antibiotics, consult, hospital admission Discharge Plan Discharge Clinical Impression: Osteomyelitis of second toe of right foot Patient Disposition: Admitted As Inpatient Print Language: Setswana
[2025-03-22 16:34] LABS: MANUAL DIFF FLAG NO
[2025-03-22 16:37] LABS: Hematocrit 34.6 % (42.0-52.0); Hemoglobin 12.0 g/dl (14.0-18.0); Imm Gran Abs Auto 0.06 X10*3/uL (0.00-0.03); Imm Gran Pct Auto 0.5 % (0.0-0.4); Lymphocytes Absolute Auto 2.1 X10*3/uL (1.2-4.9); Mean Corpuscular HGB Conc 34.7 g/dl (31.0-36.0); Mean Corpuscular Hemoglobin 27.6 pg (27.0-33.0); Mean Corpuscular Volume 79.5 fL (80.0-98.0); NRBC Abs Auto 0.000 X10*3/uL (0.0-0.012); NRBC Pct Auto 0.0 /100WBC (0.0-0.2); Platelet Count 434 X10*3/uL (160-400); Red Blood Count 4.35 X10*6/uL (4.60-5.80); White Blood Count 13.0 X10*3/uL (4.8-10.8)
[2025-03-22 16:49] LABS: Alanine Aminotransferase 8 U/L (0-40); Albumin Level 4.0 g/dL (3.5-5.0); Alkaline Phosphatase 44 U/L (39-117); Anion Gap 14 (12-20); Aspartate Amino Transferase 16 U/L (5-37); Blood Urea Nitrogen 20 mg/dL (9-16); Calcium 9.2 mg/dL (8.4-10.2); Carbon Dioxide 22 mmol/L (22-29); Chloride 102 mmol/L (96-108); Creatinine Clr Calc Pharmacy 51.0; Estimated Glomerular Filt Rate 48; Magnesium 1.9 mg/dL (1.6-2.6); Potassium 4.8 mmol/L (3.3-5.1); Sodium 133 mmol/L (135-145); Total Protein 6.7 g/dL (6.5-8.0)
[2025-03-22 20:39] VITALS: BP 121/56; PULSE 96; RESP 16; TEMP 36.9; O2SAT 100
[2025-03-22 21:40] LABS: Glucose, Whole Blood 164 mg/dL (60-115)
--- NOTE | 2025-03-22 21:40 | P.HPHOSP_ITS ---
History of Present Illness Date of Service: 03/22/25 Chief Complaint: Foot ulcer 64-year-old male past medical history of HTN, HLD, dm, chronic back pain, cardiac pacemaker, CVA, floating rib; presented to the hospital today with a chief complaint of right foot ulcer. Patient mentions that for about 10 days he has been having right 2nd toe redness and erythema; no discharge. Denies any fevers. Patient denied any chest pain or palpitations. Denies any GI symptoms. Denies any trauma or injury. Review of all other systems is negative except mentioned above ER course: Per ER team elevation noted have 2nd toe erythema and tenderness concerning for possible cellulitis. X-ray showed findings consistent with osteomyelitis; also noted degenerative joint disease. Given antibiotics. 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 Pacemaker Stroke Diabetes 1.5, managed as type 2 Surgical History History of appendectomy Social History Household Members: None Housing: Apartment Are you a primary healthcare associate to a significant other at home: No Do you presently have visiting nurse or other home services: No Alcohol intake: current Alcohol intake frequency: holidays/special occasions only Alcohol type: other Comment: single [facility] Patient Tobacco Use Status: Current everyday Tobacco user Cigarette Packs Per Day: 1 Cigarettes Per Day: 15 Years Smoked: 45 Smoked in Last 30 Days: Yes e-Cigarette/Vaping Use: Never Used Second Hand Smoke Exposure: No Use of substances other than those prescribed or required for medical reasons: No Substance Use Type: Marijuana Special yamilex needs: No Advance Directives: No Advance Directives Information Provided: Yes service: No Current occupational status: retired Cognitive needs: No Hearing needs: No Vision needs: No Meds Allergies Allergy/AdvReac Type Severity Reaction Status Date / Time No Known Allergies Allergy Verified 03/22/25 16:06 Active Medications: Current Medications Acetaminophen (Acetaminophen 325 Mg Tablet) 650 mg PO Q6H PRN PRN Reason: Pain, Mild 1-3,fever,headache Calcium Carbonate (Calcium Carbonate 750 Mg Tab.Chew) 750 mg PO Q4H PRN PRN Reason: Heartburn Dextrose (Dextrose 50 % 25 Gm/50 Ml Syringe) 25 gm IVPUSH Q15M PRN; Protocol PRN Reason: per Hypoglycemia Standing Ord. Enoxaparin Sodium (Enoxaparin Sodium 40 Mg/0.4 Ml Syringe) 40 mg SUBCUT Q24H IRIS Glucose (Glucose Gel 15 Gm Gel..Gram.) 15 gm PO Q15M PRN; Protocol PRN Reason: per Hypoglycemia Standing Ord. Vancomycin HCl 1,500 mg/ (Sodium Chloride) 500 mls @ 333.333 mls/hr IV ONCE ONE Stop: 03/22/25 22:05 Insulin Human Lispro (Insulin Lispro 100 Unit/Ml 3 Ml Vial) 0 unit SUBCUT QIDACHS [facility]; Protocol Magnesium Hydroxide (Milk Of Magnesia 30 Ml Oral.Susp) 30 ml PO DAILY PRN PRN Reason: Constipation Melatonin (Melatonin 3 Mg Tablet) 6 mg PO BEDTIME PRN PRN Reason: Insomnia Sodium Chloride (0.9 % Sodium Chloride Flush 3 Ml Syringe) 3 ml IVFLUSH QSHIFT [facility] Home Medications ?Medication ?Instructions ?Recorded ?Confirmed ?Last Taken ?Type flash glucose sensor (FreeStyle 11/24/23 03/22/25 Unk nown History Dori 2 Sensor kit) pen needle, diabetic 32 gauge x 11/24/23 03/22/25 Unk nown History 07/17 (NovoFine Plus) metformin 1,000 mg tablet 1,000 mg PO BID 03/20/2406/05 Unknown History insulin lispro 100 unit/mL subcut 11/16/24 03/22/25 Un known History subcutaneous pen (Humalog KwikPen (U-100) Insulin) tirzepatide 5 mg/0.5 mL mg subcut 12/05/24 03/22/25 Unknown History subcutaneous pen injector (Mounjaro) insulin degludec 100 unit/mL (3 10 unit subcut DAILY 0 03/07/25 03/22/25 Unknown History mL) subcutaneous pen (Tresiba FlexTouch U-100 insulin) metoprolol succinate 25 mg 12.5 mg PO DAILY 03/22/25 0 03/22/25 Unknown History tablet,extended release 24 hr Physical Exam 2 Vital Signs and Narrative: Vital Signs: Last Vital Signs Temp 98.4 F 03/22/25 20:39 Pulse 96 03/22/25 20:39 Resp 16 03/22/25 20:39 BP 121/56 L 03/22/25 20:39 Pulse Ox 100 03/22/25 20:39 O2 Del Method Room Air 03/22/25 20:39 BMI result Body Mass Index 23.0 Gen: Appears be in no acute distress HEENT: NCAT, Moist mucosa. Pulmonary: Vesicular breath sounds, fair air entry CVS: Normal S1-S2 Abdomen: BS+, Soft, Nontender Extremities: Warm well perfused; right 2nd toe is warm tender and erythematous. Neuro: Alert and awake. Results Labs 03/22/25 16:30 03/22/25 16:30 Labs: Laboratory Results - last 24 hr 03/22/25 03/22/25 16:30 16:51 MCV 79.5 L MCH 27.6 MCHC 34.7 RDW 15.8 Plt Count 434 H MPV 10.2 Immature Gran % (Auto) 0.5 H Neut % (Auto) 74.3 H Lymph % (Auto) 16.3 L Grant % (Auto) 7.8 Eos % (Auto) 0.5 Baso % (Auto) 0.6 Lymph # (Auto) 2.1 Grant # (Auto) 1.0 Eos # (Auto) 0.1 Baso # (Auto) 0.1 Abs Immat Gran (auto) 0.06 H Absolute Neuts (auto) 9.7 H Absolute Nucleated RBC 0.000 Nucleated RBC % (auto) 0.0 ESR 29 H Anion Gap 14 Estim Creat Clear Calc 51.0 Estimated GFR 48 Random Glucose 193 H Lactic Acid 1.7 Calcium 9.2 Magnesium 1.9 Total Bilirubin 0.3 AST 16 ALT 8 Alkaline Phosphatase 44 C-Reactive Protein 4.75 H Total Protein 6.7 Albumin 4.0 Imaging Radiologist's Impressions: Impressions Toe X-Ray 03/22/25 16:22 IMPRESSION: There are changes consistent with osteomyelitis in the second digit involving the middle phalanx, base of the distal phalanx, and possibly the distal metaphysis of the proximal phalanx with cortical erosions along the medial side, as described above. There are severe degenerative changes involving the first MTP joint and moderate changes of the first TMT joint. Electronically signed by: Marcus Sidhu MD 03/22/2025 04:33 PM EDT RP Assessment and Plan (1) Cellulitis of second toe, right: Status: Acute Plan 64-year-old male past medical history of HTN, HLD, dm, chronic back pain, cardiac pacemaker, CVA, floating rib; presented to the hospital today with a chief complaint of right foot ulcer. Noted have right 2nd toe cellulitis/osteomyelitis. Admitted for further management DM foot ulcer: Right 2nd toe cellulitis/osteomyelitis: Continue vancomycin and Zosyn ID consult Vascular surgery follow-up in a.m. Fall precautions PT/OT when ready for discharge Diabetes: Insulin sliding scale Med reconsideration: To be resumed on his home medications pending med reconciliation by pharmacy name. DVT prophylaxis: Lovenox Code status: Full code Quality Stroke Does the patient have a stroke diagnosis?: No VTE Prior VTE?: No VTE Risk Level:: Medical - moderate - high VTE Device Contraindication: Treatment Not Indicated VTE Drug Contraindication: N/A - Med Ordered
[2025-03-22] MEDS: vancomycin HCL 1,000 MG, vancomycin HCL 750 MG in 0.9 % Sodium Chloride 500 ML 267.5 MG IV (22:27)
[2025-03-22 23:49] VITALS: BP 121/62; PULSE 86; RESP 20; TEMP 36.3; O2SAT 98
[2025-03-23 00:25] LABS: Lipase 10 U/L (8-78)
[2025-03-23] MEDS: 0.9 % Sodium Chloride Flush 3 ML SYRINGE IVFLUSH ×3 (00:32→21:51)
[2025-03-23 04:45] VITALS: BP 113/64; PULSE 83; RESP 13; TEMP 36.6; O2SAT 99
[2025-03-23 05:44] LABS: MANUAL DIFF FLAG NO
[2025-03-23 05:47] LABS: Hematocrit 37.2 % (42.0-52.0); Hemoglobin 12.4 g/dl (14.0-18.0); Imm Gran Abs Auto 0.02 X10*3/uL (0.00-0.03); Imm Gran Pct Auto 0.2 % (0.0-0.4); Lymphocytes Absolute Auto 2.8 X10*3/uL (1.2-4.9); Mean Corpuscular HGB Conc 33.3 g/dl (31.0-36.0); Mean Corpuscular Hemoglobin 27.0 pg (27.0-33.0); Mean Corpuscular Volume 80.9 fL (80.0-98.0); NRBC Abs Auto 0.000 X10*3/uL (0.0-0.012); NRBC Pct Auto 0.0 /100WBC (0.0-0.2); Platelet Count 380 X10*3/uL (160-400); Red Blood Count 4.60 X10*6/uL (4.60-5.80); White Blood Count 9.1 X10*3/uL (4.8-10.8)
[2025-03-23 06:04] LABS: Anion Gap 16 (12-20); Blood Urea Nitrogen 15 mg/dL (9-16); Calcium 8.9 mg/dL (8.4-10.2); Carbon Dioxide 20 mmol/L (22-29); Chloride 106 mmol/L (96-108); Creatinine Clr Calc Pharmacy 63.2; Estimated Glomerular Filt Rate > 60; Potassium 4.5 mmol/L (3.3-5.1); Sodium 137 mmol/L (135-145)
--- NOTE | 2025-03-23 07:03 | PHA.PROG ---
Admission Date/Time: March 22, 2025 21:37 Indication: SKIN Weight in k.575 kg Adjusted body weight in Kg: [place] body weight in Kg: Obesity Dosing Indication % IBW: Serum Creatinine - Last 168 Hours 03/22/25 03/23/25 16:30 05:37 Creatinine 1.46 H 1.18 Estimated CrCl and GFR - Last 168 Hours 03/22/25 03/23/25 16:30 05:37 Estim Creat Clear Calc 51.0 63.2 Estimated GFR 48 > 60 Vancomycin Loading Dose: 1750 MG Current Vancomycin Dosing Regimen: 1000 MG Q24H Vancomycin Monitoring using AUC goal of 400 - 600 range with trough as surrogate marker: YGK=623 TROUGH=13.3 Date and Time for next Vancomycin Level to be drawn: 03/24/25 @1999 Pharmacist Comments on Vancomycin Plan: Vancomycin dosing will take advantage of [employer] as a clinical decision support tool that uses Bayesian modeling to calculate individual patient's pharmacokinetic parameters and forecast the patient's drug concentration time course with the target goal AUC 24 range of 400 - 600 mg/L/hr.
[2025-03-23 08:36] LABS: Glucose, Whole Blood 142 mg/dL (60-115)
--- NOTE | 2025-03-23 08:53 | PHA.MEDREC ---
Addendum entered by Jaci Herman [facility] 03/23/25 09:29: Reviewed by pharmacist Original Note: Pharmacy Consult ? Medication Reconciliation Pharmacy has completed the medication reconciliation. Spoke with pt and he confirmed his medications. Pt confirmed he is taking Tresiba and states he injects based on what his sugar levels are in the morning; pt unsure the last dose he injected himself with and he takes Mounjaro once a week on Sundays; pt last took it Sunday 03/18. PT states he was not able to grape picker the sulfamethoxazole-trimethoprim 800mg-160mg yesterday.
--- NOTE | 2025-03-23 09:45 | PC.NURSE ---
Pt reports that he takes milk of mag when he needs it. Refusing Miralax
[2025-03-23 09:46] VITALS: PULSE 87; RESP 10; O2SAT 100
[2025-03-23 10:21] VITALS: BMI 20.4
--- NOTE | 2025-03-23 11:57 | P.CONGS_ITS ---
History of Present Illness Consult details Consult date: 03/23/25 Reason for consult: wound care Narrative: Very pleasant 64-year-old gentleman presents for follow-up regarding nonhealing ulcer of the right 2nd toe. Reports this began several weeks prior. Of note he has a longstanding diabetic. He had presented to the podiatry clinic a proximally we a day ago and was subsequently sent into the hospital for further treatment and evaluation. Of note in 2017 he had undergone several procedures which appears to be most likely at [facility] had several toe amputations including the left great toe 3rd and 4th toe. He currently only has the left 2nd and 5th toe which appear intact. He now presents for us for vascular evaluation. Review of Systems 2 Review of Systems: Yes all other systems are reviewed and are negative Constitutional: Constitutional: Reports no additional constitutional complaints ENT: Reports Normal hearing present Cardiovascular: Cardiovascular: Denies chest pain, Denies chest pain at rest, Denies chest pain with activity and Denies pedal edema Respiratory: Respiratory: Denies cough Gastrointestinal: Gastrointestinal: Denies abdominal pain Musculoskeletal: Musculoskeletal: Denies abnormal gait, Denies muscle cramps and Denies radiating pain into limb Integumentary/Breasts: Skin/Breast: Denies skin ulcer and Denies wounds Neurologic: Reports Normal hearing present and Denies abnormal gait Psychiatric: Psychiatric: Reports no additional psychiatric complaints PMFSH Past Medical History Medical History Back pain Smoker Insomnia Amputated toe of left foot Anemia Low testosterone Hyperlipidemia Hypertension Carotid atherosclerosis Erectile dysfunction associated with type 2 diabetes mellitus Lumbar degenerative disc disease Gall bladder disease Finding of floating rib Spine disorder Pacemaker Stroke Diabetes 1.5, managed as type 2 Surgical History Surgical History History of appendectomy Social History Social History Household Members: Other Household Members Other:: roomate Housing: House Are you a primary special needs child caregiver to a significant other at home: No Do you presently have visiting nurse or other home services: No Alcohol intake: current Alcohol intake frequency: holidays/special occasions only Alcohol type: other Comment: single [facility] Patient Tobacco Use Status: Current everyday Tobacco user Tobacco use type: Cigarette Cigarette Packs Per Day: 0.75 Cigarettes Per Day: 15.0 Years Smoked: 45 Smoked in Last 30 Days: No e-Cigarette/Vaping Use: Never Used Patient Interested in Nicotine Replacement: Yes Patient Given Instructions on How to Stop Smoking: No Second Hand Smoke Exposure: No Use of substances other than those prescribed or required for medical reasons: No Substance Use Type: Marijuana Have you been hit, kicked, punched, or otherwise hurt by someone within the past year? If so, by whom?: No Do you feel safe in your current relationship?: No Current Relationship Is there a partner from a previous relationship who is making you feel unsafe now?: No Are you made to feel afraid or neglected: No Special yamilex needs: No Advance Directives: No Advance Directives Information Provided: Yes Do you have a plan to hurt others: No Plan Recently lost weight without trying: Yes How much weight loss: 14-23 pounds Eating poorly because of decreased appetite: Yes Nutrition screen score: 5 Nutrition Risks: No Nutritional Risk Poor oral hygiene: No service: No Current occupational status: retired Cognitive needs: No Hearing needs: No Vision needs: No Meds Allergies Allergy/AdvReac Type Severity Reaction Status Date / Time No Known Allergies Allergy Verified 03/22/25 16:06 Active Medications: Current Medications Acetaminophen (Acetaminophen 325 Mg Tablet) 650 mg PO Q6H PRN PRN Reason: Pain, Mild 1-3,fever,headache Last Admin: 03/23/25 07:07 Dose: 650 mg Calcium Carbonate (Calcium Carbonate 750 Mg Tab.Chew) 750 mg PO Q4H PRN PRN Reason: Heartburn Dextrose (Dextrose 50 % 25 Gm/50 Ml Syringe) 25 gm IVPUSH Q15M PRN; Protocol PRN Reason: per Hypoglycemia Standing Ord. Enoxaparin Sodium (Enoxaparin Sodium 40 Mg/0.4 Ml Syringe) 40 mg SUBCUT Q24H [facility] Last Admin: 03/22/25 22:27 Dose: 40 mg Glucose (Glucose Gel 15 Gm Gel..Gram.) 15 gm PO Q15M PRN; Protocol PRN Reason: per Hypoglycemia Standing Ord. Vancomycin HCl 1,000 mg/ (Sodium Chloride) 270 mls @ 270 mls/hr IV Q24H [facility] Insulin Human Lispro (Insulin Lispro 100 Unit/Ml 3 Ml Vial) 0 unit SUBCUT QIDACHS [facility]; Protocol Last Admin: 03/23/25 08:49 Dose: Not Given Magnesium Hydroxide (Milk Of Magnesia 30 Ml Oral.Susp) 30 ml PO DAILY PRN PRN Reason: Constipation Melatonin (Melatonin 3 Mg Tablet) 6 mg PO BEDTIME PRN PRN Reason: Insomnia Pharmacy Consult (Consult Rx Vancomycin Dosing) 1 each MISCELLANE DAILY PRN PRN Reason: Consult order Polyethylene Glycol (Polyethylene Glycol 3350 17 Gm Powd.Pack) 17 gm PO DAILY PRN PRN Reason: Constipation Sodium Chloride (0.9 % Sodium Chloride Flush 3 Ml Syringe) 3 ml IVFLUSH [facility] Last Admin: 03/23/25 09:43 Dose: 3 ml Home Medications ?Medication ?Instructions ?Recorded ?Confirmed ?Last Taken ?Type flash glucose sensor (FreeStyle 11/24/23 03/22/25 Unk nown History Dori 2 Sensor kit) pen needle, diabetic 32 gauge x 11/24/23 03/22/25 Unk nown History 07/17 (NovoFine Plus) metformin 1,000 mg tablet 1,000 mg PO BID 03/20/2407/0503/22/25 History tirzepatide 5 mg/0.5 mL 5 mg subcut PHILLIP 12/05/2403/1203/18/25 History subcutaneous pen injector (Mikounjuanito) insulin degludec 100 unit/mL (3 See Rx Instructions .R oute .COMPLEX 03/07/25 03/23/25 03/22/25 History mL) subcutaneous pen (Tresiba FlexTouch U-100 insulin) metoprolol succinate 25 mg 12.5 mg PO DAILY 03/22/25 0 03/23/25 03/22/25 History tablet,extended release 24 hr glipizide 5 mg tablet, extended 5 mg PO DAILY 03/23/25 03/23/25 03/22/25 History release 24 hr omeprazole 40 mg capsule,delayed 40 mg PO DAILY@0630 0 03/23/25 03/23/25 03/22/25 History release Physical Exam 2 Vital Signs: Vital Signs: Last Vital Signs Temp 97.9 F 03/23/25 04:45 Pulse 87 03/23/25 09:46 Resp 10 L 03/23/25 09:46 BP 113/64 03/23/25 04:45 Pulse Ox 100 03/23/25 09:46 O2 Del Method Room Air 03/23/25 09:46 BMI result Body Mass Index 20.4 Const: General: cooperative, healthy appearing and comfortable O rientation/consciousness: oriented to person, oriented to place and oriented to time HEENT: Head: Yes normal to inspection Neck: Neck: Yes normal visual inspection Carotids: no bruits Chest: Chest palpation & inspection: normal inspection of the chest Resp: Effort & Inspection: normal respiratory effort and able to speak in complete sentences Auscultation: clear to auscultation bilaterally, no crackles, no rales, no rhonchi and no wheezes Cardio: Other: Bilateral DP signals Rate: regular rate Rhythm: regular rhythm Heart sounds: S1 normal heart sound present and S2 normal heart sound present Bruits: no carotid bruits Peripheral pulses: Peripheral pulses 2+ throughout GI: Inspection: Yes normal to inspection Skin: Wounds: no wounds Hair: normal Neuro: General: oriented to person, oriented to place and oriented to time Cranial nerves: Yes CN's II-XII intact bilaterally and Yes Normal hearing present Cognition (Neuro): normal cognition Motor exam (neuro): 5/5 motor strength present throughout Extrem: Other: Right 2nd toe nonhealing ulcer General: No clubbing, No cyanosis and No edema Psych: Appearance: grossly normal Mental Status: mental status grossly normal Speech and movement: Normal speech and movement present Results Labs 03/23/25 05:37 03/23/25 05:37 Labs: Abnormal lab results 03/22/25 03/22/25 03/23/25 Range/Units 16:30 21:36 05:37 WBC 13.0 H (4.8-10.8) X10*3/uL RBC 4.35 L (4.60-5.80) X10*6/uL Hgb 12.0 L 12.4 L (14.0-18.0) g/dl Hct 34.6 L 37.2 L (42.0-52.0) % MCV 79.5 L (80.0-98.0) fL RDW 16.2 H (11.0-16.0) % Plt Count 434 H (160-400) X10*3/uL Immature Gran % (Auto) 0.5 H (0.0-0.4) % Neut % (Auto) 74.3 H (45-73) % Lymph % (Auto) 16.3 L (20-40) % Mcnairy % (Auto) 11.1 H (2-11) % Abs Immat Gran (auto) 0.06 H (0.00-0.03) X10*3/uL Absolute Neuts (auto) 9.7 H (2.0-8.3) x10*3/uL ESR 29 H (0-15) MM/HR Sodium 133 L (135-145) mmol/L Carbon Dioxide 20 L (22-29) mmol/L BUN 20 H (9-16) mg/dL Creatinine 1.46 H (0.5-1.4) mg/dL POC Glucose 164 H (60-115) mg/dL Random Glucose 193 H 125 H (60-115) mg/dL C-Reactive Protein 4.75 H (< or = 0.50) mg/dL 03/23/25 Range/Units 08:32 WBC (4.8-10.8) X10*3/uL RBC (4.60-5.80) X10*6/uL Hgb (14.0-18.0) g/dl Hct (42.0-52.0) % MCV (80.0-98.0) fL RDW (11.0-16.0) % Plt Count (160-400) X10*3/uL Immature Gran % (Auto) (0.0-0.4) % Neut % (Auto) (45-73) % Lymph % (Auto) (20-40) % Mcnairy % (Auto) (2-11) % Abs Immat Gran (auto) (0.00-0.03) X10*3/uL Absolute Neuts (auto) (2.0-8.3) x10*3/uL ESR (0-15) MM/HR Sodium (135-145) mmol/L Carbon Dioxide (22-29) mmol/L BUN (9-16) mg/dL Creatinine (0.5-1.4) mg/dL POC Glucose 142 H (60-115) mg/dL Random Glucose (60-115) mg/dL C-Reactive Protein (< or = 0.50) mg/dL Short CBC 03/22/25 03/23/25 Range/Units 16:30 05:37 WBC 13.0 H 9.1 (4.8-10.8) X10*3/uL Hgb 12.0 L 12.4 L (14.0-18.0) g/dl Hct 34.6 L 37.2 L (42.0-52.0) % Plt Count 434 H 380 (160-400) X10*3/uL BMP 03/22/25 03/23/25 16:30 05:37 Sodium 133 L 137 Potassium 4.8 4.5 Chloride 102 106 Carbon Dioxide 22 20 L BUN 20 H 15 Creatinine 1.46 H 1.18 Calcium 9.2 8.9 Liver Function 03/22/25 Range/Units 16:30 Total Bilirubin 0.3 (0.0-1.0) mg/dL AST 16 (5-37) U/L ALT 8 (0-40) U/L Alkaline Phosphatase 44 (39-117) U/L Albumin 4.0 (3.5-5.0) g/dL All other labs normal. Assessment and Plan (1) Diabetic ulcer of right foot: Qualifiers: Diabetic foot ulcer location: toe Diabetes mellitus type: type 2 Non- pressure ulcer stage: with necrosis of muscle Qualified Code(s): E11.621 - Type 2 diabetes mellitus with foot ulcer; L97.513 - Non-pressure chronic ulcer of other part of right foot with necrosis of muscle Status: Acute Plan In short patient has nonhealing right 2nd toe ulcer. The concern is that he has a history of smoking and diabetes. On CAT scan there was significant atherosclerotic disease. I have taken the liberty of ordering noninvasive arterial testing. Based on that we will plan further intervention. He is at risk of loss of that 2nd toe. This was discussed with the patient. Thank you for allowing us to assist in his care. If there are any questions or concerns please do not hesitate to contact us. Procedures Date of Service Date of Service: 03/23/25
[2025-03-23 12:27] VITALS: BP 131/76; PULSE 83; RESP 15; O2SAT 100
[2025-03-23 12:52] LABS: Glucose, Whole Blood 141 mg/dL (60-115)
--- NOTE | 2025-03-23 14:02 | PC.NURSE ---
MRI screening formed completed and scanned to MRI
--- NOTE | 2025-03-23 14:48 | MHC.CM.PN ---
PT REPORTS HE LIVES WITH A ROOMMATE AND IS INDEPENDENT WITH CARE HE HAS NO DME OR SERVICES DECLINES A HCP PCP: GABI PRIDE IMM DELIVERED DCP TBD PENDING TREATMENT NEEDS: HOME ? SERVICES VS STR IF IV ABX ARE REQUIRED PTS CAR IS IN LOT
[2025-03-23 16:00] VITALS: BP 142/67; PULSE 93; RESP 16; TEMP 36.6; O2SAT 98
[2025-03-23 16:42] LABS: Glucose, Whole Blood 218 mg/dL (60-115)
--- NOTE | 2025-03-23 16:42 | P.CNID_ITS ---
History of Present Illness Data of Consult Service Date: 03/23/25 Requesting physician: Edgar Clarke Primary Care Provider: Joao Stanford MD HPI Reason for consult: osteomyelitis right foot He has redness and swelling right second toe. 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 He has right first toe hitting right second toe. XR shows OM right second toe. He has no fever or chills. XR shows 2017 ,1st,3rd and 4th toes removed left foot.Area is clear Review of Systems 2 Review of Systems: Yes all other systems are reviewed and are negative [facility], [facility] Past Medical History Medical History Back pain Smoker Insomnia Amputated toe of left foot Anemia Low testosterone Hyperlipidemia Hypertension Carotid atherosclerosis Erectile dysfunction associated with type 2 diabetes mellitus Lumbar degenerative disc disease Gall bladder disease Finding of floating rib Spine disorder Pacemaker Stroke Diabetes 1.5, managed as type 2 Family History Family history: reviewed and not pertinent Surgical History Surgical History History of appendectomy Social History Social History Household Members: Other Household Members Other:: roomate Both parents involved: No Caregiver staying overnight: No Housing: House Are you a primary care nurse rn to a significant other at home: No Do you presently have visiting nurse or other home services: No 75 years or older and lives alone: No Alcohol intake: current Alcohol intake frequency: holidays/special occasions only Alcohol type: other Comment: single [facility] Patient Tobacco Use Status: Current everyday Tobacco user Tobacco use type: Cigarette Cigarette Packs Per Day: 0.75 Cigarettes Per Day: 15.0 Years Smoked: 45 e-Cigarette/Vaping Use: Never Used Second Hand Smoke Exposure: No Substance Use Type: Marijuana Special yamilex needs: No service: No Current occupational status: retired Cognitive needs: No Hearing needs: No Vision needs: No Meds Allergies Allergy/AdvReac Type Severity Reaction Status Date / Time No Known Allergies Allergy Verified 03/22/25 16:06 Active Medications: Current Medications Acetaminophen (Acetaminophen 325 Mg Tablet) 650 mg PO Q6H PRN PRN Reason: Pain, Mild 1-3,fever,headache Last Admin: 03/23/25 07:07 Dose: 650 mg Calcium Carbonate (Calcium Carbonate 750 Mg Tab.Chew) 750 mg PO Q4H PRN PRN Reason: Heartburn Dextrose (Dextrose 50 % 25 Gm/50 Ml Syringe) 25 gm IVPUSH Q15M PRN; Protocol PRN Reason: per Hypoglycemia Standing Ord. Enoxaparin Sodium (Enoxaparin Sodium 40 Mg/0.4 Ml Syringe) 40 mg SUBCUT Q24H [facility] Last Admin: 03/22/25 22:27 Dose: 40 mg Glucose (Glucose Gel 15 Gm Gel..Gram.) 15 gm PO Q15M PRN; Protocol PRN Reason: per Hypoglycemia Standing Ord. Vancomycin HCl 1,000 mg/ (Sodium Chloride) 270 mls @ 270 mls/hr IV Q24H [facility] Insulin Human Lispro (Insulin Lispro 100 Unit/Ml 3 Ml Vial) 0 unit SUBCUT QIDACHS [facility]; Protocol Last Admin: 03/23/25 12:31 Dose: Not Given Magnesium Hydroxide (Milk Of Magnesia 30 Ml Oral.Susp) 30 ml PO DAILY PRN PRN Reason: Constipation Melatonin (Melatonin 3 Mg Tablet) 6 mg PO BEDTIME PRN PRN Reason: Insomnia Pharmacy Consult (Consult Rx Vancomycin Dosing) 1 each MISCELLANE DAILY PRN PRN Reason: Consult order Polyethylene Glycol (Polyethylene Glycol 3350 17 Gm Powd.Pack) 17 gm PO DAILY PRN PRN Reason: Constipation Sodium Chloride (0.9 % Sodium Chloride Flush 3 Ml Syringe) 3 ml IVFLUSH QSHIFT [facility] Last Admin: 03/23/25 15:52 Dose: Not Given Home Medications ?Medication ?Instructions ?Recorded ?Confirmed ?Last Taken ?Type flash glucose sensor (FreeStyle 11/24/23 03/22/25 Unk nown History Dori 2 Sensor kit) pen needle, diabetic 32 gauge x 11/24/23 03/22/25 Unk nown History 07/17 (NovoFine Plus) metformin 1,000 mg tablet 1,000 mg PO BID 03/20/2407/0503/22/25 History tirzepatide 5 mg/0.5 mL 5 mg subcut PHILLIP 12/05/2403/1203/18/25 History subcutaneous pen injector (Curt) insulin degludec 100 unit/mL (3 See Rx Instructions .R oute .COMPLEX 03/07/25 03/23/25 03/22/25 History mL) subcutaneous pen (Tresiba FlexTouch U-100 insulin) metoprolol succinate 25 mg 12.5 mg PO DAILY 03/22/25 0 03/23/25 03/22/25 History tablet,extended release 24 hr glipizide 5 mg tablet, extended 5 mg PO DAILY 03/23/25 03/23/25 03/22/25 History release 24 hr omeprazole 40 mg capsule,delayed 40 mg PO DAILY@0630 0 03/23/25 03/23/25 03/22/25 History release Physical Exam 2 Vital Signs: Vital Signs: Last Vital Signs Temp 97.9 F 03/23/25 16:00 Pulse 93 03/23/25 16:00 Resp 16 03/23/25 16:00 BP 142/67 H 03/23/25 16:00 Pulse Ox 98 03/23/25 16:00 O2 Del Method Room Air 03/23/25 16:00 BMI result Body Mass Index 20.4 Const: General: cooperative HEENT: Head: Yes normal to inspection Face and sinus: Yes normal facial exam Mouth: Normal oral and palatal mucosa present Teeth and gingiva: d entition normal Eyes: General: appearance normal, both eyes and all related structures P upils: Equal, round and reactive pupils present Resp: Effort & Inspection: normal respiratory effort Cardio: Rate: regular rate Rhythm: regular rhythm GI: Palpation (GI): Soft to palpation and nontender : General: Yes no CVA tenderness Back/Spine/Pelvis: Back: no CVA tenderness Skin: General skin exam: no rashes or lesions noted Neuro: General: moves all extremities Cranial nerves: Yes Equal, round and reactive pupils present Extrem: Other: 2nd toe redness General: Yes normal to inspection Psych: Appearance: grossly normal Results Labs 03/23/25 05:37 03/23/25 05:37 Labs: Short CBC 03/23/25 Range/Units 05:37 WBC 9.1 (4.8-10.8) X10*3/uL Hgb 12.4 L (14.0-18.0) g/dl Hct 37.2 L (42.0-52.0) % Plt Count 380 (160-400) X10*3/uL BMP 03/22/25 03/23/25 16:30 05:37 Sodium 133 L 137 Potassium 4.8 4.5 Chloride 102 106 Carbon Dioxide 22 20 L BUN 20 H 15 Creatinine 1.46 H 1.18 Calcium 9.2 8.9 Liver Function 03/22/25 Range/Units 16:30 Total Bilirubin 0.3 (0.0-1.0) mg/dL AST 16 (5-37) U/L ALT 8 (0-40) U/L Alkaline Phosphatase 44 (39-117) U/L Albumin 4.0 (3.5-5.0) g/dL Assessment and Plan (1) Diabetic ulcer of right foot: Qualifiers: Diabetic foot ulcer location: toe Diabetes mellitus type: type 2 Non- pressure ulcer stage: with necrosis of muscle Qualified Code(s): E11.621 - Type 2 diabetes mellitus with foot ulcer; L97.513 - Non-pressure chronic ulcer of other part of right foot with necrosis of muscle Status: Acute (2) Diabetes: Status: Acute Plan Would check MRI see if metatarsals involved if surgery planned to amputate second toe. If metatarsal infection also would give 6 weeks IV Ertapenem or Daptomycin if MRSA found. See Vascular.
[2025-03-23 19:56] VITALS: BP 112/59; PULSE 86; RESP 16; TEMP 36.9; O2SAT 99
[2025-03-23 21:08] LABS: Glucose, Whole Blood 160 mg/dL (60-115)
[2025-03-23 23:48] VITALS: BP 106/57; PULSE 88; RESP 16; TEMP 36.7; O2SAT 98
[2025-03-24] VITALS (7 sets, daily range): BP systolic 105–131; BP diastolic 56–65; PULSE 84–92; RESP 16–20; TEMP 36.3–37.2; O2SAT 97–100; BMI 21.6
[2025-03-24 07:00] LABS: Creatinine Clr Calc Pharmacy 58.6; Estimated Glomerular Filt Rate > 60
[2025-03-24 07:34] LABS: Glucose, Whole Blood 157 mg/dL (60-115)
[2025-03-24] MEDS: Metoprolol Succinate ER 12.5 MG HALFTAB.ER.24H PO (08:12)
[2025-03-24] MEDS: 0.9 % Sodium Chloride Flush 3 ML SYRINGE IVFLUSH ×3 (08:15→21:35)
[2025-03-24 11:29] LABS: Glucose, Whole Blood 151 mg/dL (60-115)
--- NOTE | 2025-03-24 13:49 | P.PNIM_ITS ---
Subjective Subjective Date of Service: 03/24/25 Interval History: Seen and evaluated as room where he is resting comfortably in bed Swelling in right lower extremity better Some pain in right foot No other complaints No acute events overnight Review of Systems Review of Systems: Yes all other systems are reviewed and are negative Physical Exam 2 Exam: Exam: General: AOx3, no acute distress Resp: CTA bilaterally CVS: S1, S2, RRR GI: +BS, NT, no distention Skin: Warm, dry Neuro: Cranial nerves II-XII grossly intact bilaterally. Motor grossly intact bilaterally Extremities: Right lower extremity with improved swelling from knee to foot; right 2nd toe erythema as pictured below. Left foot with multiple amputations. Psych: Appropriate affect Vital Signs: Vital Signs: Last Vital Signs Temp 97.3 F 03/24/25 11:19 Pulse 90 03/24/25 11:19 Resp 18 03/24/25 11:19 BP 119/59 L 03/24/25 11:19 Pulse Ox 99 03/24/25 11:19 O2 Del Method Room Air 03/24/25 11:19 O2 Flow Rate 99 03/24/25 11:19 BMI result Body Mass Index 20.4 Objective Data Active Medications Acetaminophen (Acetaminophen 325 Mg Tablet) 650 mg PO Q6H PRN PRN Reason: Pain, Mild 1-3,fever,headache Last Admin: 03/24/25 08:12 Dose: 650 mg Documented By: RENITA Calcium Carbonate (Calcium Carbonate 750 Mg Tab.Chew) 750 mg PO Q4H PRN PRN Reason: Heartburn Dextrose (Dextrose 50 % 25 Gm/50 Ml Syringe) 25 gm IVPUSH Q15M PRN; Protocol PRN Reason: per Hypoglycemia Standing Ord. Enoxaparin Sodium (Enoxaparin Sodium 40 Mg/0.4 Ml Syringe) 40 mg SUBCUT Q24H [facility] Last Admin: 03/23/25 21:43 Dose: Not Given Documented By: TEDDY Non-Admin Reason: Patient Refused Glucose (Glucose Gel 15 Gm Gel..Gram.) 15 gm PO Q15M PRN; Protocol PRN Reason: per Hypoglycemia Standing Ord. Vancomycin HCl 1,000 mg/ (Sodium Chloride) 270 mls @ 270 mls/hr IV Q24H [facility] Last Infusion: 03/23/25 22:51 Dose: Infused Documented By: HO.SHTYBAI Insulin Human Lispro (Insulin Lispro 100 Unit/Ml 3 Ml Vial) 0 unit SUBCUT QIDACHS [facility]; Protocol Last Admin: 03/24/25 11:59 Dose: 2 unit Documented By: RENITA Magnesium Hydroxide (Milk Of Magnesia 30 Ml Oral.Susp) 30 ml PO DAILY PRN PRN Reason: Constipation Melatonin (Melatonin 3 Mg Tablet) 6 mg PO BEDTIME PRN PRN Reason: Insomnia Metoprolol Succinate (Metoprolol Succinate Er 12.5 Mg Halftab.Er.24h) 12.5 mg PO DAILY [facility]; Protocol Last Admin: 03/24/25 08:12 Dose: 12.5 mg Documented By: RENITA Omeprazole (Omeprazole 40 Mg Capsule.Dr) 40 mg PO DAILY@0630 [facility] Last Admin: 03/24/25 05:32 Dose: 40 mg Documented By: МАРИНА Pharmacy Consult (Consult Rx Vancomycin Dosing) 1 each MISCELLANE DAILY PRN PRN Reason: Consult order Polyethylene Glycol (Polyethylene Glycol 3350 17 Gm Powd.Pack) 17 gm PO DAILY PRN PRN Reason: Constipation Sodium Chloride (0.9 % Sodium Chloride Flush 3 Ml Syringe) 3 ml IVFLUSH QSHIFT [facility] Last Admin: 03/24/25 08:15 Dose: 3 ml Documented By: RENITA Trazodone HCl (Trazodone Hcl 100 Mg Tablet) 100 mg PO BEDTIME [facility] Labs 03/23/25 05:37 03/24/25 06:28 Labs: Laboratory Results - last 24 hr 03/23/25 03/23/25 03/24/25 16:38 21:00 06:28 Hold Purple Top SEE NOTE Estim Creat Clear Calc 58.6 Estimated GFR > 60 POC Glucose 218 H 160 H 03/24/25 03/24/25 07:20 11:09 Hold Purple Top Estim Creat Clear Calc Estimated GFR POC Glucose 157 H 151 H Microbiology Microbiology Results: Microbiology 03/22/25 19:04 Blood Culture - Preliminary Blood - Venous No growth after 24 hours. 03/22/25 16:51 Blood Culture - Preliminary Blood - Venous No growth after 24 hours. Assessment and Plan (1) Osteomyelitis of second toe of right foot: Status: Acute Plan 64-year-old male past medical history of HTN, HLD, dm, chronic back pain, cardiac pacemaker, CVA, floating rib; presented to the hospital today with a chief complaint of right foot ulcer. Noted have right 2nd toe cellulitis/osteomyelitis. Admitted for further management Right 2nd toe cellulitis/osteomyelitis In the setting of DM and PVD Continue vancomycin and Zosyn, day 3 ID consult, request MRI to see if metatarsals involved; would require 6 weeks of IV antibiotics post-amp Vascular surgery consulted Bilateral lower extremity arterial duplex U/S showed moderate right proximal SFA stenosis Pt will need right lower extremity angiogram prior to amputation PT/OT when ready for discharge Hx of complete heartblock S/P Joanna XT DR CERDA SureScan [place] [facility] [place]/CAD Continue statin Diabetes Hold metformin, Farxiga Insulin sliding scale, diabetic diet Continue glipizide GERD Continue omeprazole DVT prophylaxis: Lovenox Code status: Full code Quality Stroke Does the patient have a stroke diagnosis?: No VTE Prior VTE?: No VTE Risk Level:: Medical - moderate - high VTE Device Contraindication: Treatment Not Indicated VTE Drug Contraindication: N/A - Med Ordered
[2025-03-24] MEDS: oxyCODONE HCl Immed Release 5 MG TABLET PO (14:40)
[2025-03-24 16:14] LABS: Glucose, Whole Blood 217 mg/dL (60-115)
[2025-03-24] MEDS: Milk of Magnesia 30 ML ORAL.SUSP PO (18:41)
[2025-03-24] MEDS: oxyCODONE HCl Immed Release 5 MG TABLET 10 MG PO ×2 (18:41→23:15)
[2025-03-24 20:51] LABS: Glucose, Whole Blood 182 mg/dL (60-115)
[2025-03-24] MEDS: Sacubitril/Valsartan 24/26 1 TAB TABLET PO (21:33)
--- NOTE | 2025-03-24 22:15 | HE.PHANOTE ---
re vanco dosing trough low at 9.6 but drawn after only 2 doses. Renal function improving and projected auc/trough is subtherapeutic so will increase dose to 1500 mg q24 and recheck true trough 03/25 @1999.
[2025-03-25 03:03] VITALS: BP 105/57; PULSE 83; RESP 18; TEMP 36.4; O2SAT 96
[2025-03-25] MEDS: oxyCODONE HCl Immed Release 5 MG TABLET 10 MG PO ×5 (05:28→22:49)
[2025-03-25 07:04] VITALS: BP 103/56; PULSE 82; RESP 14; TEMP 36.8; O2SAT 97
[2025-03-25 07:45] LABS: Glucose, Whole Blood 208 mg/dL (60-115)
[2025-03-25 07:59] LABS: Creatinine Clr Calc Pharmacy 65.6; Estimated Glomerular Filt Rate > 60
[2025-03-25] MEDS: Sacubitril/Valsartan 24/26 1 TAB TABLET PO ×2 (08:45→20:30)
[2025-03-25] MEDS: Metoprolol Succinate ER 12.5 MG HALFTAB.ER.24H PO (08:46)
[2025-03-25] MEDS: Milk of Magnesia 30 ML ORAL.SUSP PO (08:51)
[2025-03-25] MEDS: 0.9 % Sodium Chloride Flush 3 ML SYRINGE IVFLUSH ×3 (08:52→21:14)
[2025-03-25 11:27] VITALS: BP 97/53; PULSE 79; RESP 16; TEMP 36.3; O2SAT 99
[2025-03-25 11:29] LABS: Glucose, Whole Blood 199 mg/dL (60-115)
[2025-03-25 12:30] VITALS: BP 96/50; PULSE 88; RESP 16; TEMP 36; O2SAT 99
[2025-03-25 15:39] VITALS: BP 103/56; PULSE 75; RESP 18; TEMP 36.3; O2SAT 100
--- NOTE | 2025-03-25 16:17 | HO.PM.IMPN ---
Subjective Subjective Date of Service: 03/25/25 Interval History: Right foot pain better controlled with increase of Oxy Swelling improved No acute events overnight Reports he has been totally prepared for amputation Review of Systems Review of Systems: Yes all other systems are reviewed and are negative Physical Exam Exam: Exam: General: AOx3, no acute distress Resp: CTA bilaterally CVS: S1, S2, RRR GI: Soft, NT, no distention Skin: Warm, dry Neuro: Cranial nerves II-XII grossly intact bilaterally. Motor grossly intact bilaterally Extremities: Right lower extremity with improved swelling from knee to foot; right 2nd toe with erythema similar to previous. Left foot with multiple amputations. Psych: Appropriate affect Vital Signs: Vital Signs: Last Vital Signs Temp 97.4 F 03/25/25 15:39 Pulse 75 03/25/25 15:39 Resp 18 03/25/25 15:39 BP 103/56 L 03/25/25 15:39 Pulse Ox 100 03/25/25 15:39 O2 Del Method Room Air 03/25/25 15:39 O2 Flow Rate 99 03/24/25 11:19 BMI result Body Mass Index 21.6 Objective Data Active Medications Acetaminophen (Acetaminophen 325 Mg Tablet) 650 mg PO Q6H PRN PRN Reason: Pain, Mild 1-3,fever,headache Last Admin: 03/24/25 08:12 Dose: 650 mg Documented By: RENITA Atorvastatin Calcium (Atorvastatin Calcium 80 Mg Tablet) 80 mg PO DAILY [facility] Last Admin: 03/25/25 08:46 Dose: 80 mg Documented By: RENITA Calcium Carbonate (Calcium Carbonate 750 Mg Tab.Chew) 750 mg PO Q4H PRN PRN Reason: Heartburn Dextrose (Dextrose 50 % 25 Gm/50 Ml Syringe) 25 gm IVPUSH Q15M PRN; Protocol PRN Reason: per Hypoglycemia Standing Ord. Enoxaparin Sodium (Enoxaparin Sodium 40 Mg/0.4 Ml Syringe) 40 mg SUBCUT Q24H [facility] Last Admin: 03/24/25 21:40 Dose: Not Given Documented By: МАРИНА Non-Admin Reason: Patient Refused Glipizide (Glipizide Xl 5 Mg Tab.Er.24) 5 mg PO DAILY [facility] Last Admin: 03/25/25 08:46 Dose: 5 mg Documented By: RENITA Glucose (Glucose Gel 15 Gm Gel..Gram.) 15 gm PO Q15M PRN; Protocol PRN Reason: per Hypoglycemia Standing Ord. Vancomycin HCl 1,500 mg/ (Sodium Chloride) 500 mls @ 333.333 mls/hr IV Q24H [facility] Last Infusion: 03/24/25 23:18 Dose: Infused Documented By: МАРИНА Piperacillin Sod/Tazobactam (Sod 3.375 gm/ Sodium Chloride) 50 mls @ 100 mls/hr IV Q6H [facility] Last Infusion: 03/25/25 15:30 Dose: Infused Documented By: JONATHAN Insulin Human Lispro (Insulin Lispro 100 Unit/Ml 3 Ml Vial) 0 unit SUBCUT QIDACHS [facility]; Protocol Last Admin: 03/25/25 11:46 Dose: 2 unit Documented By: RENITA Magnesium Hydroxide (Milk Of Magnesia 30 Ml Oral.Susp) 30 ml PO DAILY PRN PRN Reason: Constipation Last Admin: 03/25/25 08:51 Dose: 30 ml Documented By: RENITA Melatonin (Melatonin 3 Mg Tablet) 6 mg PO BEDTIME PRN PRN Reason: Insomnia Metoprolol Succinate (Metoprolol Succinate Er 12.5 Mg Halftab.Er.24h) 12.5 mg PO DAILY [facility]; Protocol Last Admin: 03/25/25 08:46 Dose: 12.5 mg Documented By: RENITA Omeprazole (Omeprazole 40 Mg Capsule.Dr) 40 mg PO DAILY@0630 [facility] Last Admin: 03/25/25 05:28 Dose: 40 mg Documented By: МАРИНА Oxycodone HCl (Oxycodone Hcl Immed Release 5 Mg Tablet) 10 mg PO Q4H PRN PRN Reason: Pain, Severe (Pain Scale 7-10) Last Admin: 03/25/25 13:48 Dose: 10 mg Documented By: JONATHAN Pharmacy Consult (Consult Rx Vancomycin Dosing) 1 each MISCELLANE DAILY PRN PRN Reason: Consult order Polyethylene Glycol (Polyethylene Glycol 3350 17 Gm Powd.Pack) 17 gm PO DAILY PRN PRN Reason: Constipation Sacubitril/Valsartan (Sacubitril/Valsartan 1 Tab Tablet) 1 tab PO BID [facility]; Protocol Last Admin: 03/25/25 08:45 Dose: 1 tab Documented By: RENITA Sodium Chloride (0.9 % Sodium Chloride Flush 3 Ml Syringe) 3 ml IVFLUSH QSHIFT [facility] Last Admin: 03/25/25 15:50 Dose: Not Given Documented By: JONATHAN Non-Admin Reason: Previously Administered Trazodone HCl (Trazodone Hcl 100 Mg Tablet) 100 mg PO BEDTIME [facility] Last Admin: 03/24/25 21:32 Dose: 100 mg Documented By: МАРИНА Labs 03/23/25 05:37 03/25/25 07:01 Labs: Laboratory Results - last 24 hr 03/24/25 03/24/25 03/25/25 20:04 20:42 07:01 Hold Purple Top SEE NOTE Estim Creat Clear Calc 65.6 Estimated GFR > 60 POC Glucose 182 H Random Vancomycin 9.6 L 03/25/25 03/25/25 07:05 11:13 Hold Purple Top Estim Creat Clear Calc Estimated GFR POC Glucose 208 H 199 H Random Vancomycin Microbiology Microbiology Results: Microbiology 03/22/25 19:04 Blood Culture - Preliminary Blood - Venous No growth after 48 hours. 03/22/25 16:51 Blood Culture - Preliminary Blood - Venous No growth after 48 hours. Assessment and Plan (1) Osteomyelitis of second toe of right foot: Status: Acute Plan 64-year-old male past medical history of HTN, HLD, dm, chronic back pain, cardiac pacemaker, CVA, floating rib; presented to the hospital today with a chief complaint of right foot ulcer. Noted have right 2nd toe cellulitis/osteomyelitis. Admitted for further management Right 2nd toe cellulitis/osteomyelitis In the setting of DM and PVD Continue vancomycin and Zosyn, day 3 ID consult, request MRI to see if metatarsals involved as this would require 6 weeks of IV antibiotics post-amp MRI planned on Wednesday as pt has pacemaker in place Vascular surgery consulted, plan on right lower extremity angiogram on Wednesday prior to amputation Bilateral lower extremity arterial duplex U/S showed moderate right proximal SFA stenosis PT/OT when ready for discharge Hx of complete heartblock S/P Joanna XT DR CERDA SureScan [place] [facility] [place] HLD/CAD Continue statin Diabetes Hold metformin, Farxiga Insulin sliding scale, diabetic diet Continue glipizide GERD Continue omeprazole DVT prophylaxis: Pneumatic compression due to impending angiogram and subsequent amputation Code status: Full code Quality Stroke Does the patient have a stroke diagnosis?: No VTE Prior VTE?: No VTE Risk Level:: Medical - moderate - high VTE Device Contraindication: Treatment Not Indicated VTE Drug Contraindication: N/A - Med Ordered
[2025-03-25 16:27] LABS: Glucose, Whole Blood 181 mg/dL (60-115)
[2025-03-25 20:00] VITALS: BP 118/60; PULSE 84; RESP 18; TEMP 36.3; O2SAT 100
--- NOTE | 2025-03-25 20:23 | HE.PHANOTE ---
RE VANCO DOSING CONTINUE WITH CURRENT DOSING. 1500 MG Q24 HOURS. CONTINUE DAILY RENAL FUNCTION ASSESMENT AND WATCH FOR IMPROVEMENT OR DECLINE THAT MAY ALTER DOSING FUNCTION HAS ALREADY HAD SIGNIFICANT IMPROVEMTNE IN THE PAST 3 DAYS. WILL RECHECK LEVEL AGAIN ON 03/27.
[2025-03-25 21:06] LABS: Glucose, Whole Blood 204 mg/dL (60-115)
[2025-03-26] VITALS (17 sets, daily range): BP systolic 92–130; BP diastolic 49–86; PULSE 76–89; RESP 10–20; TEMP 36–36.9; O2SAT 94–100
[2025-03-26] MEDS: oxyCODONE HCl Immed Release 5 MG TABLET 10 MG PO ×4 (03:24→21:23)
[2025-03-26 06:56] LABS: Creatinine Clr Calc Pharmacy 59.4; Estimated Glomerular Filt Rate > 60
--- NOTE | 2025-03-26 07:18 | HE.PHANOTE ---
VANCO DOSE ADJUSTMENT BASED ON SCR DOSE CONTINUED AT 1500 Q24H. NEXT LEVEL AT 03/27
--- NOTE | 2025-03-26 07:21 | P.PNIM_ITS ---
Subjective Subjective Date of Service: 03/26/25 Interval History: BP slightly soft, Will hold Entresto this morning Plan on right lower extremity angiogram later in the day by vascular Pain well controlled Review of Systems Review of Systems: Yes all other systems are reviewed and are negative Physical Exam 2 Exam: Exam: General: AOx3, no acute distress Resp: CTA bilaterally CVS: S1, S2, RRR GI: Soft, NT, no distention Skin: Warm, dry Neuro: Cranial nerves II-XII grossly intact bilaterally. Motor grossly intact bilaterally Extremities: Right lower extremity with improved swelling from knee to foot; right 2nd toe with erythema similar to previous. Left foot with multiple amputations. Psych: Appropriate affect Vital Signs: Vital Signs: Last Vital Signs Temp 97.4 F 03/26/25 03:51 Pulse 86 03/26/25 03:51 Resp 18 03/26/25 03:51 BP 92/54 L 03/26/25 03:51 Pulse Ox 99 03/26/25 03:51 O2 Del Method Room Air 03/26/25 03:51 O2 Flow Rate 99 03/24/25 11:19 BMI result Body Mass Index 21.6 Objective Data Active Medications Acetaminophen (Acetaminophen 325 Mg Tablet) 650 mg PO Q6H PRN PRN Reason: Pain, Mild 1-3,fever,headache Last Admin: 03/24/25 08:12 Dose: 650 mg Documented By: RENITA Atorvastatin Calcium (Atorvastatin Calcium 80 Mg Tablet) 80 mg PO DAILY [facility] Last Admin: 03/25/25 08:46 Dose: 80 mg Documented By: RENITA Calcium Carbonate (Calcium Carbonate 750 Mg Tab.Chew) 750 mg PO Q4H PRN PRN Reason: Heartburn Dextrose (Dextrose 50 % 25 Gm/50 Ml Syringe) 25 gm IVPUSH Q15M PRN; Protocol PRN Reason: per Hypoglycemia Standing Ord. Glipizide (Glipizide Xl 5 Mg Tab.Er.24) 5 mg PO DAILY [facility] Last Admin: 03/25/25 08:46 Dose: 5 mg Documented By: RENITA Glucose (Glucose Gel 15 Gm Gel..Gram.) 15 gm PO Q15M PRN; Protocol PRN Reason: per Hypoglycemia Standing Ord. Vancomycin HCl 1,500 mg/ (Sodium Chloride) 500 mls @ 333.333 mls/hr IV Q24H [facility] Last Infusion: 03/25/25 22:52 Dose: Infused Documented By: TIGRE Piperacillin Sod/Tazobactam (Sod 3.375 gm/ Sodium Chloride) 50 mls @ 100 mls/hr IV Q6H [facility] Last Infusion: 03/26/25 04:03 Dose: Infused Documented By: TIGRE Sodium Chloride (Ns) 1,000 mls @ 100 mls/hr IVCONT .Q10H [facility] Insulin Human Lispro (Insulin Lispro 100 Unit/Ml 3 Ml Vial) 0 unit SUBCUT QIDACHS [facility]; Protocol Last Admin: 03/25/25 21:12 Dose: 2 unit Documented By: TIGRE Comments: pt requested only 2 units. Magnesium Hydroxide (Milk Of Magnesia 30 Ml Oral.Susp) 30 ml PO DAILY PRN PRN Reason: Constipation Last Admin: 03/25/25 08:51 Dose: 30 ml Documented By: RENITA Melatonin (Melatonin 3 Mg Tablet) 6 mg PO BEDTIME PRN PRN Reason: Insomnia Metoprolol Succinate (Metoprolol Succinate Er 12.5 Mg Halftab.Er.24h) 12.5 mg PO DAILY [facility]; Protocol Last Admin: 03/25/25 08:46 Dose: 12.5 mg Documented By: RENITA Omeprazole (Omeprazole 40 Mg Capsule.Dr) 40 mg PO DAILY@0630 [facility] Last Admin: 03/26/25 05:33 Dose: 40 mg Documented By: TIGRE Oxycodone HCl (Oxycodone Hcl Immed Release 5 Mg Tablet) 10 mg PO Q4H PRN PRN Reason: Pain, Severe (Pain Scale 7-10) Last Admin: 03/26/25 03:24 Dose: 10 mg Documented By: SAMIR Pharmacy Consult (Consult Rx Vancomycin Dosing) 1 each MISCELLANE DAILY PRN PRN Reason: Consult order Polyethylene Glycol (Polyethylene Glycol 3350 17 Gm Powd.Pack) 17 gm PO DAILY PRN PRN Reason: Constipation Sacubitril/Valsartan (Sacubitril/Valsartan 1 Tab Tablet) 1 tab PO BID [facility]; Protocol Last Admin: 03/25/25 20:30 Dose: 1 tab Documented By: TIGRE Sodium Chloride (0.9 % Sodium Chloride Flush 3 Ml Syringe) 3 ml IVFLUSH QSHIFT [facility] Last Admin: 03/25/25 21:14 Dose: 3 ml Documented By: TIGRE Trazodone HCl (Trazodone Hcl 100 Mg Tablet) 100 mg PO BEDTIME [facility] Last Admin: 03/25/25 22:48 Dose: 100 mg Documented By: TIGRE Labs 03/23/25 05:37 03/26/25 05:32 Labs: Laboratory Results - last 24 hr 03/25/25 03/25/25 03/25/25 07:01 07:05 11:13 Hold Purple Top SEE NOTE Estim Creat Clear Calc 65.6 Estimated GFR > 60 POC Glucose 208 H 199 H Random Vancomycin 03/25/25 03/25/25 03/25/25 16:23 19:46 21:02 Hold Purple Top Estim Creat Clear Calc Estimated GFR POC Glucose 181 H 204 H Random Vancomycin 13.4 L 03/26/25 05:32 Hold Purple Top SEE NOTE Estim Creat Clear Calc 59.4 Estimated GFR > 60 POC Glucose Random Vancomycin Assessment and Plan (1) Osteomyelitis of second toe of right foot: Status: Acute Plan 64-year-old male past medical history of HTN, HLD, dm, chronic back pain, cardiac pacemaker, CVA, floating rib; presented to the hospital today with a chief complaint of right foot ulcer. Noted have right 2nd toe cellulitis/osteomyelitis. Admitted for further management Right 2nd toe cellulitis/osteomyelitis In the setting of DM and PVD Continue vancomycin and Zosyn, day 3 ID consult, request MRI to see if metatarsals involved as this would require 6 weeks of IV antibiotics post-amp MRI planned on Wednesday as pt has pacemaker in place and needs cardiology clearance Vascular surgery consulted, plan on right lower extremity angiogram today, possible amputation later Bilateral lower extremity arterial duplex U/S showed moderate right proximal SFA stenosis PT/OT when ready for discharge BCx negative @48h Hx of complete heartblock S/P Joanna XT DR CERDA SureFrances PPM placed at [facility] [place] on 01/20/2023 HLD/CAD Continue statin Diabetes Hold metformin, Farxiga Insulin sliding scale, diabetic diet Continue glipizide GERD Continue omeprazole DVT prophylaxis: Pneumatic compression due to impending angiogram and subsequent amputation Code status: Full code Quality Stroke Does the patient have a stroke diagnosis?: No VTE Prior VTE?: No VTE Risk Level:: Medical - moderate - high VTE Device Contraindication: Treatment Not Indicated VTE Drug Contraindication: N/A - Med Ordered
[2025-03-26 07:35] LABS: Glucose, Whole Blood 197 mg/dL (60-115)
--- NOTE | 2025-03-26 07:47 | P.PNVS_ITS ---
Subjective Subjective Date of Service: 03/26/25 Patient reports: no new complaints and feels better Interval history: Very pleasant 64-year-old gentleman presents for follow-up evaluation regarding nonhealing right 2nd toe ulcer. Longstanding diabetic and smoker. Developed this ulcer on the 2nd toe when he presented to podiatry. Was subsequently sent in to the hospital for workup and evaluation. He has been admitted and placed on IV antibiotics. He had noninvasive arterial testing. He now presents to us for follow-up. Physical Exam Vital Signs: Vital Signs: Last Vital Signs Temp 97.4 F 03/26/25 03:51 Pulse 86 03/26/25 03:51 Resp 18 03/26/25 03:51 BP 92/54 L 03/26/25 03:51 Pulse Ox 99 03/26/25 03:51 O2 Del Method Room Air 03/26/25 03:51 O2 Flow Rate 99 03/24/25 11:19 BMI result Body Mass Index 21.6 Const: General: cooperative, healthy appearing and comfortable Orientation/consciousness: oriented to person, oriented to place and oriented to time HEENT: Head: Yes normal to inspection Neck: Neck: Yes normal visual inspection Carotids: no bruits Chest: Chest palpation & inspection: normal inspection of the chest Resp: Effort & Inspection: normal respiratory effort and able to speak in complete sentences Auscultation: clear to auscultation bilaterally, no crackles, no rales, no rhonchi and no wheezes Cardio: Other: Right side DP signal only Rate: regular rate Rhythm: regular rhythm Heart sounds: S1 normal heart sound present and S2 normal heart sound present Bruits: no carotid bruits GI: Inspection: Yes normal to inspection Skin: Other: Right 2nd toe ulcer opening on the more medial aspect of it Wounds: wounds noted Hair: normal Neuro: General: oriented to person, oriented to place and oriented to time Cranial nerves: Yes CN's II-XII intact bilaterally and Yes Normal hearing present Cognition (Neuro): normal cognition Motor exam (neuro): 5/5 motor strength present throughout Extrem: Other: venous exam: No significant superficial varicosities or spider te langiectasias, minimal edema General: No clubbing, No cyanosis and No edema Psych: Appearance: grossly normal Mental Status: mental status grossly normal Speech and movement: Normal speech and movement present Progress Note: A&P Assessment and plan (1) PAD (peripheral artery disease): Status: Acute Assessment and Plan: In short patient has a nonhealing right lower extremity ulcer I have discussed the pathophysiology of peripheral vascular disease with the patient. I have also discussed risk factor modification. I have reviewed the patient's arterial testing which reveals right SFA disease. the patient would benefit from a right leg endovascular peripheral angiogram with possible angioplasty, stent, and/or atherectomy. This has been discussed in detail with the patient along with risks, benefits, and complications. This includes but is not limited to bleeding, infection, heart attack, need for emergent surgical repair, limb ischemia, blood vessel damage, bleeding, puncture, kidney injury, bruising, allergic reaction, and skin reaction. The patient demonstrates a clear unde rstanding. We will schedule for the next appropriate time. Thank you for allowing us to assist in this patient's care. Time Spent With Patient Time: Total time managing care of this patient today ____ minutes. Procedures Date of Service Date of Service: 03/26/25 Quality Stroke Does the patient have a stroke diagnosis?: No VTE Prior VTE?: No VTE Risk Level:: Medical - moderate - high VTE Device Contraindication: Treatment Not Indicated VTE Drug Contraindication: N/A - Med Ordered
[2025-03-26] MEDS: Metoprolol Succinate ER 12.5 MG HALFTAB.ER.24H PO (07:56)
--- NOTE | 2025-03-26 09:51 | MHC.CLN ---
NUTRITION PATIENT WITH SIGNIFICANT, PLANNED WEIGHT LOSS X 3 MONTHS, -34#, 18%. TAKES [place]JAURO FOR WEIGHT LOSS. REPORTS FAVORABLE CHANGES TO DIET INCLUDING LIMITING PROCESSED FOODS. NPO FOR SURGERY. RESUME DM 2000 KCAL DIET WHEN ABLE.
[2025-03-26 11:22] LABS: Glucose, Whole Blood 166 mg/dL (60-115)
--- NOTE | 2025-03-26 15:05 | MHC.CM.PN ---
Patient not medically cleared for dc. Awaiting further testing and likely amp, ? of need for IV abx post amp. CM will continue to follow.
--- NOTE | 2025-03-26 15:33 | W.PM.OPN ---
Operative Note Operative Note Date of Service: 03/26/25 Narrative: Angiogram report from [facility] Preoperative diagnosis: Atherosclerosis of right lower extremity with nonhealing ulcer Postoperative diagnosis: Same Procedure: 1. Ultrasound-guided left common femoral access 2. Aortogram with bilateral lower extremity runoff Surgeon:Viktor Blanca M.D., FACS, RPVI [employer]inkler Truck Driver:None Anesthesia: Local with moderate conscious sedation. Total intraservice moderate sedation time was 23 minutes. I monitored the patient's level of consciousness and physiologic status continuously throughout the procedure. Specimens:none Drains:none Estimated blood loss: Less than 10 ml Radiation Dose: 130.1 mGy Implant: None Indications: 64-year-old gentleman with a history of diabetes and nonhealing right 2nd toe ulcer now presents for endovascular intervention. Noninvasive testing was concerning for SFA disease. The patient has signed the informed consent after reviewing risks, complications, benefits, and alternatives previously discussed with the patient. The patient was given the opportunity to ask any additional questions or voice any concerns. All questions were answered to the patient's satisfaction. Procedure in detail: Patient was brought to the angiography suite prior to which a time-out was called for patient identification and site verification. Bilateral groins were prepped and draped in the standard surgical fashion. Under ultrasound guidance left common femoral was punctured with micro puncture needle and wire. Subsequently a precision 5 [place] sheath was then placed. Bentson wire was advanced to the level of the aorta. 5 [place] Flush catheter was brought up and parked at the level of the renal arteries. Aortogram was then undertaken. Catheter was brought down to the level of the iliac bifurcation. Iliacs and runoff was performed through the flush catheter that was parked at the bifurcation and a power injection was performed to visualize bilateral runoff vessels. Subsequently the catheter was then brought in up and over to the right side SFA. We then placed the flushed catheter in the mid SFA. We did multiple below-knee images. Multiple orthogonal views were undertaken. We imaged all the way down to the foot. No intervention was indicated. Catheter wire sheath was brought back to the ipsilateral side. A 5 [place] CELT closure device was then placed. Adequate hemostasis was achieved. Patient tolerated the procedure well. Interpretation of films: 1. Ultrasound demonstrates appropriate femoral access site. Vessel was patent with minimal stenosis. Needle entry was visualized. Image of ultrasound was saved. 2. Aortogram demonstrates appropriate caliber aorta. Minimal disease. Appropriate take-off of the renals. 3. Iliac images demonstrate no significant disease tight angulation. Atherosclerotic vessels. 4. Right Leg Common femoral artery: No significant disease Profundus Femoris: No significant disease Superficial femoral artery: No significant disease. No disease noted in distal SFA or Patrick's canal Popliteal artery (p1,p2,p3): No significant disease Anterior tibial artery: No significant disease Peroneal artery: Good flow to ankle dominant runoff Posterior tibial artery: No significant disease Dorsalis pedis/plantar arch: Incomplete off flow stops towards the ankle. No flow towards the foot 5. Left Leg Common femoral artery: No significant disease Profundus Femoris: No significant disease Superficial femoral artery: No significant disease. Popliteal artery (p1,p2,p3): No significant disease Anterior tibial artery: No significant disease Peroneal artery: No significant disease Posterior tibial artery: No significant disease Dorsalis pedis/plantar arch: Not visualized. We were unable to reflux the contrast below the trifurcation. Conclusion: 1. Successful diagnostic angiogram 2. Anticoagulation status: No change This note is constructed using voice recognition software. While every effort has been made to ensure accuracy, therapeutic consultant errors may have been included. Thank you for allowing me to participate in the care of your patient. Yours sincerely, Viktor Blanca MD, FACS, R.P.V.I.
[2025-03-26 17:04] LABS: Glucose, Whole Blood 190 mg/dL (60-115)
--- NOTE | 2025-03-26 18:37 | PC.NURSE ---
Patient to be 30 degrees in bed rest till 5.45 pm per order.
[2025-03-26 20:32] LABS: Glucose, Whole Blood 259 mg/dL (60-115)
[2025-03-26] MEDS: Sacubitril/Valsartan 24/26 1 TAB TABLET PO (20:58)
[2025-03-27] MEDS: oxyCODONE HCl Immed Release 5 MG TABLET 10 MG PO ×5 (02:53→20:32)
[2025-03-27 04:00] VITALS: BP 115/57; PULSE 96; RESP 18; TEMP 36.4; O2SAT 99
[2025-03-27 06:49] LABS: Creatinine Clr Calc Pharmacy 51.6; Estimated Glomerular Filt Rate 52
[2025-03-27 07:29] LABS: Glucose, Whole Blood 134 mg/dL (60-115)
[2025-03-27] MEDS: Metoprolol Succinate ER 12.5 MG HALFTAB.ER.24H PO (07:32)
[2025-03-27] MEDS: Sacubitril/Valsartan 24/26 1 TAB TABLET PO ×2 (07:32→20:32)
[2025-03-27 07:37] VITALS: BP 117/58; PULSE 88; RESP 16; TEMP 36.1; O2SAT 98
--- NOTE | 2025-03-27 10:09 | HO.WOUND ---
Wound Consult: Initial 64yr [place] [facility] [place] See progress notes and H&P for detailed history. Wound consult placed for right foot. Patient agreeable to assessment and photo documentation. Patient with DM and current smoker, history of multiple toe amputations to left foot. Reports recent trauma to right second toe due to long toenail to right great toe. Now with swelling, redness, and wounding to right second toe. Xray with concern for osteo, angiogram completed by Dr. Blanca. Pending MRI and per patient pending possible amputation with Dr. Blanca. Right anterior second toe Right medial second toe Etiology: diabetic foot ulcer/ arterial Present on Admission Measurements: 2cm x 3cm x 0.2cm Wound Bed: moist red, moist yellow Drainage / Odor: no odor, serosanguineous small Edges: ? moist/macerated Sasha wound: ? No Induration, Fluctuance noted. Swelling and redness, some warmth noted Pain: none Goals of Treatment: ? systemic treatment with antibiotics, moisture management with durafiber pending surgery. Recommendations: 1. Turn and Reposition every 2 hours and as needed for patient comfort. Use pillows or wedges to support off loading positions. 2. Off Load all bony prominences with use of pillows and heel boots if needed. Apply Preventative foams where needed. 3. Monitor for incontinence and moisture control, use barrier creams when needed for prevention and treatment. 4. Provide adequate and supplemental nutrition. 5. Order or Continue low air loss mattress. 6. When applicable maintain blood glucose levels per Providers order. Right second toe: cleanse with normal saline, pat dry, apply durafiber, cover with gauze/ABD and rolled gauze, change every day and PRN. Re-consult wound care Nurse for wound deterioration or wound changes.
--- NOTE | 2025-03-27 11:21 | MHC.CM.PN ---
Awaiting MRI and likely amp. Discussed dc plan with patient. Home w/ services vs SNF. ? need for IV abx post amp. [facility] has accepted, but patient reports he does not prefer SNF and instead would like to go home if possible. [facility] following. He is also open to day stay infusion center if IV abx are needed and his friend would transport daily. CM will continue to follow.
[2025-03-27 11:29] LABS: Glucose, Whole Blood 284 mg/dL (60-115)
--- NOTE | 2025-03-27 13:11 | HO.VASCPN ---
Subjective Subjective Date of Service: 03/27/25 Patient reports: no new complaints and feels better Interval history: Patient is postop day 1 status post diagnostic angiogram. No significant changes the right lower extremity. Nonhealing right 2nd toe. Physical Exam Vital Signs: Vital Signs: Last Vital Signs Temp 96.9 F 03/27/25 07:37 Pulse 88 03/27/25 07:37 Resp 16 03/27/25 07:37 BP 117/58 L 03/27/25 07:37 Pulse Ox 98 03/27/25 07:37 O2 Del Method Room Air 03/27/25 07:37 O2 Flow Rate 2 03/26/25 15:32 BMI result Body Mass Index 21.6 Const: General: cooperative, healthy appearing and comfortable Orientation/consciousness: oriented to person, oriented to place and oriented to time HEENT: Head: Yes normal to inspection Neck: Neck: Yes normal visual inspection Carotids: no bruits Chest: Chest palpation & inspection: normal inspection of the chest Resp: Effort & Inspection: normal respiratory effort and able to speak in complete sentences Auscultation: clear to auscultation bilaterally, no crackles, no rales, no rhonchi and no wheezes Cardio: Other: Bilateral DP signals Rate: regular rate Rhythm: regular rhythm Heart sounds: S1 normal heart sound present and S2 normal heart sound present Bruits: no carotid bruits Peripheral pulses: Peripheral pulses 2+ throughout GI: Inspection: Yes normal to inspection Skin: Other: Right 2nd toe nonhealing ulcer, wet in appearance Wounds: no wounds Hair: normal Neuro: General: oriented to person, oriented to place and oriented to time Cranial nerves: Yes CN's II-XII intact bilaterally and Yes Normal hearing present Cognition (Neuro): normal cognition Motor exam (neuro): 5/5 motor strength present throughout Extrem: Other: venous exam: No significant superficial varicosities or spider telangiectasias, minimal edema General: No clubbing, No cyanosis and No edema Psych: Appearance: grossly normal Mental Status: mental status grossly normal Speech and movement: Normal speech and movement present Progress Note: A&P Assessment and plan (1) PAD (peripheral artery disease): Status: Acute Assessment and Plan: Patient has nonhealing right 2nd toe ulcer. Concern is underlying osteomyelitis. I had an extensive discussion with the patient regarding the need for amputation. I do not think it would heal. I also do not feel that an MRI would add additional benefit. It will be a challenge as the patient does have a pacemaker. I do have appropriate information from an x-ray which will allow me to proceed with the right 2nd toe amputation. This was discussed with the hospital team as well. We will follow up in preop tomorrow for afternoon toe amputation. Thank you for allowing us to assist in his care. Time Spent With Patient Time: Total time managing care of this patient today ____ minutes. Procedures Date of Service Date of Service: 03/27/25 Quality Stroke Does the patient have a stroke diagnosis?: No VTE Prior VTE?: No VTE Risk Level:: Medical - moderate - high VTE Device Contraindication: Treatment Not Indicated VTE Drug Contraindication: N/A - Med Ordered
--- NOTE | 2025-03-27 15:39 | HO.PM.IMPN ---
Subjective Subjective Date of Service: 03/27/25 Interval History: No acute issues overnight Review of Systems Denies chest pain Denies shortness of breath Denies nausea vomiting diarrhea Denies fever chills Physical Exam Vital Signs: Vital Signs: Last Vital Signs Temp 96.9 F 03/27/25 07:37 Pulse 88 03/27/25 07:37 Resp 16 03/27/25 07:37 BP 117/58 L 03/27/25 07:37 Pulse Ox 98 03/27/25 07:37 O2 Del Method Room Air 03/27/25 07:37 O2 Flow Rate 2 03/26/25 15:32 BMI result Body Mass Index 21.6 Const: Other: Awake alert no acute distress Resp: Other: Clear to auscultation bilaterally no rales rhonchi or wheezes Cardio: Other: No S4; positive S1-S2; no S3 murmurs rubs or gallops GI: Other: Soft nontender nondistended normoactive bowel sounds Extrem: Other: No edema. Right 2nd toe necrotic Objective Data Active Medications Acetaminophen (Acetaminophen 325 Mg Tablet) 650 mg PO Q6H PRN PRN Reason: Pain, Mild 1-3,fever,headache Last Admin: 03/24/25 08:12 Dose: 650 mg Documented By: RENITA Atorvastatin Calcium (Atorvastatin Calcium 80 Mg Tablet) 80 mg PO DAILY [facility] Last Admin: 03/27/25 07:32 Dose: 80 mg Documented By: HUY Calcium Carbonate (Calcium Carbonate 750 Mg Tab.Chew) 750 mg PO Q4H PRN PRN Reason: Heartburn Dextrose (Dextrose 50 % 25 Gm/50 Ml Syringe) 25 gm IVPUSH Q15M PRN; Protocol PRN Reason: per Hypoglycemia Standing Ord. Glipizide (Glipizide Xl 5 Mg Tab.Er.24) 5 mg PO DAILY [facility] Last Admin: 03/27/25 07:31 Dose: 5 mg Documented By: HUY Glucose (Glucose Gel 15 Gm Gel..Gram.) 15 gm PO Q15M PRN; Protocol PRN Reason: per Hypoglycemia Standing Ord. Vancomycin HCl 1,500 mg/ (Sodium Chloride) 500 mls @ 333.333 mls/hr IV Q24H [facility] Last Infusion: 03/26/25 23:55 Dose: Infused Documented By: DIDIER Piperacillin Sod/Tazobactam (Sod 3.375 gm/ Sodium Chloride) 50 mls @ 100 mls/hr IV Q6H [facility] Last Infusion: 03/27/25 15:18 Dose: Infused Documented By: HUY Sodium Chloride (Ns) 1,000 mls @ 100 mls/hr IVCONT .Q10H [facility] Last Infusion: 03/27/25 12:23 Dose: Infused Documented By: KASH Insulin Human Lispro (Insulin Lispro 100 Unit/Ml 3 Ml Vial) 0 unit SUBCUT QIDACHS [facility]; Protocol Last Admin: 03/27/25 11:50 Dose: 6 unit Documented By: HUY Magnesium Hydroxide (Milk Of Magnesia 30 Ml Oral.Susp) 30 ml PO DAILY PRN PRN Reason: Constipation Last Admin: 03/25/25 08:51 Dose: 30 ml Documented By: RENITA Melatonin (Melatonin 3 Mg Tablet) 6 mg PO BEDTIME PRN PRN Reason: Insomnia Metoprolol Succinate (Metoprolol Succinate Er 12.5 Mg Halftab.Er.24h) 12.5 mg PO DAILY [facility]; Protocol Last Admin: 03/27/25 07:32 Dose: 12.5 mg Documented By: HUY Omeprazole (Omeprazole 40 Mg Capsule.Dr) 40 mg PO DAILY@0630 [facility] Last Admin: 03/27/25 05:35 Dose: 40 mg Documented By: DIDIER Oxycodone HCl (Oxycodone Hcl Immed Release 5 Mg Tablet) 10 mg PO Q4H PRN PRN Reason: Pain, Severe (Pain Scale 7-10) Last Admin: 03/27/25 11:53 Dose: 10 mg Documented By: HUY Pharmacy Consult (Consult Rx Vancomycin Dosing) 1 each MISCELLANE DAILY PRN PRN Reason: Consult order Polyethylene Glycol (Polyethylene Glycol 3350 17 Gm Powd.Pack) 17 gm PO DAILY PRN PRN Reason: Constipation Sacubitril/Valsartan (Sacubitril/Valsartan 1 Tab Tablet) 1 tab PO BID [facility]; Protocol Last Admin: 03/27/25 07:32 Dose: 1 tab Documented By: HUY Sodium Chloride (0.9 % Sodium Chloride Flush 3 Ml Syringe) 3 ml IVFLUSH QSHIFT [facility] Last Admin: 03/27/25 14:41 Dose: Not Given Documented By: HUY Non-Admin Reason: IV Running Trazodone HCl (Trazodone Hcl 100 Mg Tablet) 100 mg PO BEDTIME [facility] Last Admin: 03/26/25 23:38 Dose: 100 mg Documented By: DIDIER Labs 03/23/25 05:37 03/27/25 05:14 Labs: Laboratory Results - last 24 hr 03/26/25 03/26/25 03/27/25 17:01 20:21 05:14 Hold Purple Top Estim Creat Clear Calc 51.6 Estimated GFR 52 POC Glucose 190 H 259 H 03/27/25 03/27/25 03/27/25 06:14 07:20 11:17 Hold Purple Top SEE NOTE Estim Creat Clear Calc Estimated GFR POC Glucose 134 H 284 H Assessment and Plan (1) Osteomyelitis of second toe of right foot: Status: Acute (2) Diabetes: Status: Acute (3) Hypertension: Status: Acute Plan 64-year-old male past medical history of HTN, HLD, dm, chronic back pain, cardiac pacemaker, CVA, floating rib; presented to the hospital today with a chief complaint of right foot ulcer. Noted have right 2nd toe cellulitis/osteomyelitis. Admitted for further management 1.Right 2nd toe cellulitis/osteomyelitis -vancomycin/Zosyn(4) -appreciate vascular surgery input; results of arteriogram noted. No need for MRI -to OR 03/29/2025 -BCx negative @48h 2.Hx of complete heartblock -S/P Joanna XT DR CERDA SureScan PPM placed [place] [facility] [place]/20/2023 3.Diabetes Type 2 -hold metformin, Farxiga -insulin correction scale -adjust as indicated Pneumatic compression due to impending angiogram and subsequent amputation Code status: Full code Quality Stroke Does the patient have a stroke diagnosis?: No VTE Prior VTE?: No VTE Risk Level:: Medical - moderate - high VTE Device Contraindication: Treatment Not Indicated VTE Drug Contraindication: N/A - Med Ordered
[2025-03-27 15:51] VITALS: BP 128/70; PULSE 80; RESP 18; TEMP 36.7; O2SAT 100
[2025-03-27 16:12] LABS: Glucose, Whole Blood 285 mg/dL (60-115)
[2025-03-27 20:00] VITALS: BP 113/61; PULSE 80; RESP 19; TEMP 36.1; O2SAT 99
[2025-03-27] MEDS: 0.9 % Sodium Chloride Flush 3 ML SYRINGE IVFLUSH (20:34)
[2025-03-27 21:07] LABS: Glucose, Whole Blood 181 mg/dL (60-115)
--- NOTE | 2025-03-28 | ECG_ITS ---
Test Reason : PRE OP Blood Pressure : */* mmHG Vent. Rate : 83 BPM Atrial Rate : 83 BPM P-R Int : 172 ms QRS Dur : 146 ms QT Int : 436 ms P-R-T Axes : 31 13 98 degrees QTcB Int : 512 ms Atrial-sensed ventricular-paced rhythm with occasional Premature ventricular complexes Abnormal ECG No previous ECGs available Referred By: Cici Vasquez Electronically Signed By: HAYES VILLA
[2025-03-28] MEDS: oxyCODONE HCl Immed Release 5 MG TABLET 10 MG PO ×6 (00:32→22:34)
[2025-03-28 03:17] VITALS: BP 107/51; PULSE 81; RESP 16; TEMP 36; O2SAT 97
[2025-03-28 06:22] LABS: Creatinine Clr Calc Pharmacy 53.9; Estimated Glomerular Filt Rate 55
[2025-03-28 07:21] LABS: Glucose, Whole Blood 223 mg/dL (60-115)
[2025-03-28 07:30] VITALS: BP 164/88; PULSE 62; RESP 16; TEMP 36.7; O2SAT 98
[2025-03-28] MEDS: Sacubitril/Valsartan 24/26 1 TAB TABLET PO ×2 (09:26→21:07)
[2025-03-28] MEDS: Metoprolol Succinate ER 12.5 MG HALFTAB.ER.24H PO (09:26)
[2025-03-28] MEDS: 0.9 % Sodium Chloride Flush 3 ML SYRINGE IVFLUSH (09:28)
[2025-03-28 11:07] LABS: Glucose, Whole Blood 174 mg/dL (60-115)
--- NOTE | 2025-03-28 11:16 | MHC.CM.PN ---
Not medically cleared for dc, awaiting surgery. 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 CM will continue to follow.
--- NOTE | 2025-03-28 11:56 | HO.VASCPN ---
Subjective Subjective Date of Service: 03/28/25 Patient reports: no new complaints and feels better Interval history: 64-year-old gentleman well known diabetic has nonhealing right 2nd toe ulcer. It is ischemic and somewhat wet as well. He has undergone diagnostic angiogram earlier this week which did demonstrate appropriate flow down to the ankle and no flow to the foot. He now presents for routine follow-up. Physical Exam Vital Signs: Vital Signs: Last Vital Signs Temp 98.1 F 03/28/25 07:30 Pulse 62 03/28/25 07:30 Resp 16 03/28/25 07:30 BP 164/88 H 03/28/25 07:30 Pulse Ox 98 03/28/25 07:30 O2 Del Method Room Air 03/28/25 07:30 O2 Flow Rate 2 03/26/25 15:32 BMI result Body Mass Index 21.6 Const: General: cooperative, healthy appearing and comfortable Orientation/consciousness: oriented to person, oriented to place and oriented to time HEENT: Head: Yes normal to inspection Neck: Neck: Yes normal visual inspection Carotids: no bruits Chest: Chest palpation & inspection: normal inspection of the chest Resp: Effort & Inspection: normal respiratory effort and able to speak in complete sentences Auscultation: clear to auscultation bilaterally, no crackles, no rales, no rhonchi and no wheezes Cardio: Rate: regular rate Rhythm: regular rhythm Heart sounds: S1 normal heart sound present and S2 normal heart sound present Bruits: no carotid bruits Peripheral pulses: Peripheral pulses 2+ throughout GI: Inspection: Yes normal to inspection Skin: Other: Right 2nd toe ischemic, wet Wounds: no wounds Hair: normal Neuro: General: oriented to person, oriented to place and oriented to time Cranial nerves: Yes CN's II-XII intact bilaterally and Yes Normal hearing present Cognition (Neuro): normal cognition Motor exam (neuro): 5/5 motor strength present throughout Extrem: Other: venous exam: No significant superficial varicosities or spider telangiectasias, minimal edema General: No clubbing, No cyanosis and No edema Psych: Appearance: grossly normal Mental Status: mental status grossly normal Speech and movement: Normal speech and movement present Progress Note: A&P Assessment and plan (1) Osteomyelitis of second toe of right foot: Status: Acute Assessment and Plan: In short patient has a nonhealing ulcer of the right 2nd toe. He will require right 2nd toe amputation. Risks benefits complications were discussed in detail with the patient. He understood and would like to move forward. In addition he does know that he has at an increased risk due to his cardiac condition. He would like to proceed. Thank you for allowing us to assist in his care. If there are any questions or concerns please do not hesitate to contact us. Time Spent With Patient Time: Total time managing care of this patient today ____ minutes. Procedures Date of Service Date of Service: 03/28/25 Quality Stroke Does the patient have a stroke diagnosis?: No VTE Prior VTE?: No VTE Risk Level:: Medical - moderate - high VTE Device Contraindication: Treatment Not Indicated VTE Drug Contraindication: N/A - Med Ordered
--- NOTE | 2025-03-28 14:49 | HO.PM.IMPN ---
Subjective Subjective Date of Service: 03/28/25 Interval History: No acute issues overnight. Remains tolerant of therapies Review of Systems Denies chest pain Denies shortness of breath Denies nausea vomiting diarrhea Denies fever chills Physical Exam Vital Signs: Vital Signs: Last Vital Signs Temp 98.1 F 03/28/25 07:30 Pulse 62 03/28/25 07:30 Resp 16 03/28/25 07:30 BP 164/88 H 03/28/25 07:30 Pulse Ox 98 03/28/25 07:30 O2 Del Method Room Air 03/28/25 07:30 O2 Flow Rate 2 03/26/25 15:32 BMI result Body Mass Index 21.6 Const: Other: Awake alert no acute distress Resp: Other: Clear to auscultation bilaterally no rales rhonchi or wheezes Cardio: Other: No S4; positive S1-S2; no S3 murmurs rubs or gallops GI: Other: Soft nontender nondistended normoactive bowel sounds Extrem: Other: No edema. Right 2nd toe necrotic Objective Data Active Medications Acetaminophen (Acetaminophen 325 Mg Tablet) 650 mg PO Q6H PRN PRN Reason: Pain, Mild 1-3,fever,headache Last Admin: 03/24/25 08:12 Dose: 650 mg Documented By: RENITA Atorvastatin Calcium (Atorvastatin Calcium 80 Mg Tablet) 80 mg PO DAILY [facility] Last Admin: 03/28/25 09:26 Dose: 80 mg Documented By: SAMIR Calcium Carbonate (Calcium Carbonate 750 Mg Tab.Chew) 750 mg PO Q4H PRN PRN Reason: Heartburn Dextrose (Dextrose 50 % 25 Gm/50 Ml Syringe) 25 gm IVPUSH Q15M PRN; Protocol PRN Reason: per Hypoglycemia Standing Ord. Glipizide (Glipizide Xl 5 Mg Tab.Er.24) 5 mg PO DAILY [facility] Last Admin: 03/28/25 09:26 Dose: 5 mg Documented By: SAMIR Glucose (Glucose Gel 15 Gm Gel..Gram.) 15 gm PO Q15M PRN; Protocol PRN Reason: per Hypoglycemia Standing Ord. Vancomycin HCl 1,500 mg/ (Sodium Chloride) 500 mls @ 333.333 mls/hr IV Q24H [facility] Last Infusion: 03/27/25 23:22 Dose: Infused Documented By: DIDIER Piperacillin Sod/Tazobactam (Sod 3.375 gm/ Sodium Chloride) 50 mls @ 100 mls/hr IV Q6H [facility] Last Infusion: 03/28/25 14:40 Dose: Infused Documented By: SAMIR Insulin Human Lispro (Insulin Lispro 100 Unit/Ml 3 Ml Vial) 0 unit SUBCUT QIDACHS [facility]; Protocol Last Admin: 03/28/25 11:42 Dose: 2 unit Documented By: SAMIR Magnesium Hydroxide (Milk Of Magnesia 30 Ml Oral.Susp) 30 ml PO DAILY PRN PRN Reason: Constipation Last Admin: 03/25/25 08:51 Dose: 30 ml Documented By: RENITA Melatonin (Melatonin 3 Mg Tablet) 6 mg PO BEDTIME PRN PRN Reason: Insomnia Metoprolol Succinate (Metoprolol Succinate Er 12.5 Mg Halftab.Er.24h) 12.5 mg PO DAILY [facility]; Protocol Last Admin: 03/28/25 09:26 Dose: 12.5 mg Documented By: SAMIR Omeprazole (Omeprazole 40 Mg Capsule.Dr) 40 mg PO DAILY@0630 [facility] Last Admin: 03/28/25 05:26 Dose: 40 mg Documented By: DIDIER Oxycodone HCl (Oxycodone Hcl Immed Release 5 Mg Tablet) 10 mg PO Q4H PRN PRN Reason: Pain, Severe (Pain Scale 7-10) Last Admin: 03/28/25 14:01 Dose: 10 mg Documented By: SAMIR Pharmacy Consult (Consult Rx Vancomycin Dosing) 1 each MISCELLANE DAILY PRN PRN Reason: Consult order Polyethylene Glycol (Polyethylene Glycol 3350 17 Gm Powd.Pack) 17 gm PO DAILY PRN PRN Reason: Constipation Sacubitril/Valsartan (Sacubitril/Valsartan 1 Tab Tablet) 1 tab PO BID [facility]; Protocol Last Admin: 03/28/25 09:26 Dose: 1 tab Documented By: SAMIR Sodium Chloride (0.9 % Sodium Chloride Flush 3 Ml Syringe) 3 ml IVFLUSH QSHIFT [facility] Last Admin: 03/28/25 09:28 Dose: 3 ml Documented By: SAMIR Trazodone HCl (Trazodone Hcl 100 Mg Tablet) 100 mg PO BEDTIME [facility] Last Admin: 03/28/25 00:29 Dose: 100 mg Documented By: DIDIER Labs 03/23/25 05:37 03/28/25 05:21 Labs: Laboratory Results - last 24 hr 03/27/25 03/27/25 03/27/25 16:09 19:51 20:59 Hold Purple Top Estim Creat Clear Calc Estimated GFR POC Glucose 285 H 181 H Random Vancomycin 14.7 L 03/28/25 03/28/25 03/28/25 05:21 07:08 10:58 Hold Purple Top SEE NOTE Estim Creat Clear Calc 53.9 Estimated GFR 55 POC Glucose 223 H 174 H Random Vancomycin Microbiology Microbiology Results: Microbiology 03/22/25 19:04 Blood Culture - Final Blood - Venous No growth after 5 days. 03/22/25 16:51 Blood Culture - Final Blood - Venous No growth after 5 days. Assessment and Plan (1) Osteomyelitis of second toe of right foot: Status: Acute (2) Diabetes: Status: Acute Plan 64-year-old male past medical history of HTN, HLD, dm, chronic back pain, cardiac pacemaker, CVA, floating rib; presented to the hospital today with a chief complaint of right foot ulcer. Noted have right 2nd toe cellulitis/osteomyelitis. Admitted for further management 1.Right 2nd toe cellulitis/osteomyelitis -vancomycin/Zosyn(5) -appreciate vascular surgery input; results of arteriogram noted. No need for MRI -to OR 03/29/2025 -BCx negative @ 5 days 2.Hx of complete heartblock -S/P Joanna XT DR PRASHANT Sure[place] [facility] [place] 3.Diabetes Type 2 -hold metformin, Farxiga -insulin correction scale -adjust as indicated Pneumatic compression due to impending angiogram and subsequent amputation Code status: Full code Quality Stroke Does the patient have a stroke diagnosis?: No VTE Prior VTE?: No VTE Risk Level:: Medical - moderate - high VTE Device Contraindication: Treatment Not Indicated VTE Drug Contraindication: N/A - Med Ordered
[2025-03-28 15:59] VITALS: BP 112/53; PULSE 80; RESP 18; TEMP 36.6; O2SAT 98
[2025-03-28 16:04] LABS: Glucose, Whole Blood 187 mg/dL (60-115)
[2025-03-28 20:00] VITALS: BP 104/56; PULSE 71; RESP 16; TEMP 36.3
--- NOTE | 2025-03-28 20:37 | HE.PHANOTE ---
RE: VANCO DOSING Trough came back as 15 mg/L, renal function is stable. Continue with dose 1500 mg q24h, next trough is scheduled for 03/29/25 @1999.
[2025-03-28 20:55] LABS: Glucose, Whole Blood 208 mg/dL (60-115)
[2025-03-29] VITALS (8 sets, daily range): BP systolic 83–112; BP diastolic 47–57; PULSE 84–107; RESP 12–19; TEMP 36.3–36.7; O2SAT 85–99
[2025-03-29] MEDS: oxyCODONE HCl Immed Release 5 MG TABLET 10 MG PO ×4 (03:12→23:13)
[2025-03-29 05:54] LABS: Creatinine Clr Calc Pharmacy 61.5; Estimated Glomerular Filt Rate > 60
[2025-03-29 07:51] LABS: Glucose, Whole Blood 241 mg/dL (60-115)
[2025-03-29] MEDS: Metoprolol Succinate ER 12.5 MG HALFTAB.ER.24H PO (07:59)
[2025-03-29] MEDS: 0.9 % Sodium Chloride Flush 3 ML SYRINGE IVFLUSH ×3 (07:59→23:14)
[2025-03-29] MEDS: Sacubitril/Valsartan 24/26 1 TAB TABLET PO ×2 (07:59→20:41)
[2025-03-29 11:35] LABS: Glucose, Whole Blood 304 mg/dL (60-115)
[2025-03-29] MEDS: Lactated Ringers 1,000 ML 80 ML IVCONT (12:58)
[2025-03-29 13:06] LABS: Glucose, Whole Blood 279 mg/dL (60-115)
--- NOTE | 2025-03-29 13:20 | HO.ANESPROP2 ---
Documented by User: Cici Vasquez NP 03/28/25 10:54 HPI - Anesthesia Eval Consult details Narrative: 64 yr old male for right 2nd toe amputation No recent illness. No CP/SOB, prior to 1 month ago when toe became painful he was going to the [facility], riding a bike. Ischemic cardiomyopathy: LVEF 25-35% on echo from 11/2024; nuclear study was ordered due to new wall motion abnormalities but not yet done: outstanding [facility] cardiology referral in pt's chart. H/O complete heart block: S/P Joanna XT DR CERDA SureVivekan PPM placed at [facility] on 01/20/2023; device check done 10/2024 showed <1% atrial & 100% ventricular pacing. 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[employer] stroke November 2023 Smoker: 1 pack per day as of October 2024; no cigarettes since 03/18/25 Anesthesia Pre-Procedure Meds Is the patient on any of the following meds?: SGLT2 Inhib PMFSH Active Problems Active Problems: All Active Problems (Updated 03/26/25 @ 07:49 by Viktor Blanca MD) PAD (peripheral artery disease) (Acute) Osteomyelitis of second toe of right foot (Acute) Tinea unguium (Acute) Diabetic ulcer of right foot (Acute) Cellulitis of second toe, right (Acute) Onychomycosis (Acute) Lumbar spondylosis (Acute) Vertebrogenic low back pain (Acute) Dog bite of right hand (Acute) Lumbar spinal stenosis (Acute) Discitis of lumbosacral region (Acute) Bilateral hip pain (Acute) Lumbar radiculopathy (Acute) Vaccine counseling (Acute) Normal physical examination, routine (Acute) Diabetes (Acute) Lumbar degenerative disc disease (Acute) Back pain (Acute) Erectile dysfunction associated with type 2 diabetes mellitus (Acute) Amputated toe of left foot (Acute) Insomnia (Acute) Smoker (Acute) Carotid atherosclerosis (Acute) Anemia (Acute) Low testosterone (Acute) Stroke (Acute) Hyperlipidemia (Acute) Hypertension (Acute) Past Medical History Medical History (Updated 03/28/25 @ 14:53 by Tony Denny DO) Osteomyelitis of second toe of right foot Back pain Smoker Insomnia Amputated toe of left foot Anemia Low testosterone Hyperlipidemia Hypertension Carotid atherosclerosis Erectile dysfunction associated with type 2 diabetes mellitus Lumbar degenerative disc disease Gall bladder disease Finding of floating rib Spine disorder Pacemaker Stroke Diabetes 1.5, managed as type 2 Family History Family history of problems with anesthesia: No Surgical History Surgical History (Updated 03/26/25 @ 13:26 by Nikky Wise RN) History of surgery History of surgery History of appendectomy History of Problems with Anesthesia: No Social History Social History Household Members: Other Household Members Other:: roomate Both parents involved: No Caregiver staying overnight: No Housing: House Are you a primary field care manager to a significant other at home: No Do you presently have visiting nurse or other home services: No 75 years or older and lives alone: No Alcohol intake: current Alcohol intake frequency: does not drink Alcohol type: other Comment: single malt scotch Patient Tobacco Use Status: Current everyday Tobacco user Tobacco use type: Cigarette Cigarette Packs Per Day: 0.75 Cigarettes Per Day: 15 Years Smoked: 45 e-Cigarette/Vaping Use: Never Used Second Hand Smoke Exposure: No Substance Use Type: Marijuana Special yamilex needs: No service: No Current occupational status: retired Cognitive needs: No Hearing needs: No Vision needs: No Meds Allergies Allergy/AdvReac Type Severity Reaction Status Date / Time No Known Allergies Allergy Verified 03/29/25 12:33 Active Medications: Current Medications Acetaminophen (Acetaminophen 325 Mg Tablet) 650 mg PO Q6H PRN PRN Reason: Pain, Mild 1-3,fever,headache Last Admin: 03/24/25 08:12 Dose: 650 mg Atorvastatin Calcium (Atorvastatin Calcium 80 Mg Tablet) 80 mg PO DAILY [facility] Last Admin: 03/27/25 07:32 Dose: 80 mg Calcium Carbonate (Calcium Carbonate 750 Mg Tab.Chew) 750 mg PO Q4H PRN PRN Reason: Heartburn Dextrose (Dextrose 50 % 25 Gm/50 Ml Syringe) 25 gm IVPUSH Q15M PRN; Protocol PRN Reason: per Hypoglycemia Standing Ord. Glipizide (Glipizide Xl 5 Mg Tab.Er.24) 5 mg PO DAILY [facility] Last Admin: 03/27/25 07:31 Dose: 5 mg Glucose (Glucose Gel 15 Gm Gel..Gram.) 15 gm PO Q15M PRN; Protocol PRN Reason: per Hypoglycemia Standing Ord. Vancomycin HCl 1,500 mg/ (Sodium Chloride) 500 mls @ 333.333 mls/hr IV Q24H [facility] Last Infusion: 03/27/25 23:22 Dose: Infused Piperacillin Sod/Tazobactam (Sod 3.375 gm/ Sodium Chloride) 50 mls @ 100 mls/hr IV Q6H [facility] Last Infusion: 03/28/25 03:27 Dose: Infused Insulin Human Lispro (Insulin Lispro 100 Unit/Ml 3 Ml Vial) 0 unit SUBCUT QIDACHS [facility]; Protocol Last Admin: 03/28/25 07:47 Dose: 4 unit Magnesium Hydroxide (Milk Of Magnesia 30 Ml Oral.Susp) 30 ml PO DAILY PRN PRN Reason: Constipation Last Admin: 03/25/25 08:51 Dose: 30 ml Melatonin (Melatonin 3 Mg Tablet) 6 mg PO BEDTIME PRN PRN Reason: Insomnia Metoprolol Succinate (Metoprolol Succinate Er 12.5 Mg Halftab.Er.24h) 12.5 mg PO DAILY [facility]; Protocol Last Admin: 03/27/25 07:32 Dose: 12.5 mg Omeprazole (Omeprazole 40 Mg Capsule.Dr) 40 mg PO DAILY@0630 [facility] Last Admin: 03/28/25 05:26 Dose: 40 mg Oxycodone HCl (Oxycodone Hcl Immed Release 5 Mg Tablet) 10 mg PO Q4H PRN PRN Reason: Pain, Severe (Pain Scale 7-10) Last Admin: 03/28/25 05:25 Dose: 10 mg Pharmacy Consult (Consult Rx Vancomycin Dosing) 1 each MISCELLANE DAILY PRN PRN Reason: Consult order Polyethylene Glycol (Polyethylene Glycol 3350 17 Gm Powd.Pack) 17 gm PO DAILY PRN PRN Reason: Constipation Sacubitril/Valsartan (Sacubitril/Valsartan 1 Tab Tablet) 1 tab PO BID [facility]; Protocol Last Admin: 03/27/25 20:32 Dose: 1 tab Sodium Chloride (0.9 % Sodium Chloride Flush 3 Ml Syringe) 3 ml IVFLUSH QSHIFT [facility] Last Admin: 03/27/25 20:34 Dose: 3 ml Trazodone HCl (Trazodone Hcl 100 Mg Tablet) 100 mg PO BEDTIME [facility] Last Admin: 03/28/25 00:29 Dose: 100 mg Home Medications ?Medication ?Instructions ?Recorded ?Confirmed ?Last Taken ?Type flash glucose sensor (FreeStyle 11/24/23 03/22/25 Unknown History Dori 2 Sensor kit) pen needle, diabetic 32 gauge x 11/24/23 03/22/25 Unknown History 07/17 (NovoFine Plus) metformin 1,000 mg tablet 1,000 mg PO BID 03/20/24 03/23/25 03/22/25 History tirzepatide 5 mg/0.5 mL 5 mg subcut PHILLIP 12/05/24 03/23/25 03/18/25 History subcutaneous pen injector (Curt) insulin degludec 100 unit/mL (3 See Rx Instructions .Route .COMPLEX 03/07/25 03/23/25 03/22/25 History mL) subcutaneous pen (Tresiba FlexTouch U-100 insulin) metoprolol succinate 25 mg 12.5 mg PO DAILY 03/22/25 03/23/25 03/22/25 History tablet,extended release 24 hr glipizide 5 mg tablet, extended 5 mg PO DAILY 03/23/25 03/23/25 03/22/25 History release 24 hr omeprazole 40 mg capsule,delayed 40 mg PO DAILY@0630 03/23/25 03/23/25 03/22/25 History release Exam Height,Weight and Vital Signs: Height 5 ft 10 in Weight 68.3 kg Last Vital Signs Temp 98.1 F 03/28/25 07:30 Pulse 62 03/28/25 07:30 Resp 16 03/28/25 07:30 BP 164/88 H 03/28/25 07:30 Pulse Ox 98 03/28/25 07:30 O2 Del Method Room Air 03/28/25 07:30 O2 Flow Rate 2 03/26/25 15:32 Pertinent Lab Results Pertinent Lab Results: Laboratory Tests 03/22/25 03/22/25 03/22/25 16:30 16:51 21:36 WBC 13.0 H RBC 4.35 L Hgb 12.0 L Hct 34.6 L MCV 79.5 L MCH 27.6 MCHC 34.7 RDW 15.8 Plt Count 434 H MPV 10.2 Immature Gran % (Auto) 0.5 H Neut % (Auto) 74.3 H Lymph % (Auto) 16.3 L [place] % (Auto) 7.8 Eos % (Auto) 0.5 Baso % (Auto) 0.6 Lymph # (Auto) 2.1 [place] # (Auto) 1.0 Eos # (Auto) 0.1 Baso # (Auto) 0.1 Abs Immat Gran (auto) 0.06 H Absolute Neuts (auto) 9.7 H Absolute Nucleated RBC 0.000 Nucleated RBC % (auto) 0.0 ESR 29 H Hold Purple Top Sodium 133 L Potassium 4.8 Chloride 102 Carbon Dioxide 22 Anion Gap 14 BUN 20 H Creatinine 1.46 H Estim Creat Clear Calc 51.0 Estimated GFR 48 POC Glucose 164 H Random Glucose 193 H Lactic Acid 1.7 Calcium 9.2 Magnesium 1.9 Total Bilirubin 0.3 AST 16 ALT 8 Alkaline Phosphatase 44 C-Reactive Protein 4.75 H Total Protein 6.7 Albumin 4.0 Lipase 10 Random Vancomycin 03/23/25 03/23/25 03/23/25 05:37 08:32 12:26 WBC 9.1 RBC 4.60 Hgb 12.4 L Hct 37.2 L MCV 80.9 MCH 27.0 MCHC 33.3 RDW 16.2 H Plt Count 380 MPV 10.5 Immature Gran % (Auto) 0.2 Neut % (Auto) 54.7 Lymph % (Auto) 31.0 [place] % (Auto) 11.1 H Eos % (Auto) 2.1 Baso % (Auto) 0.9 Lymph # (Auto) 2.8 [place] # (Auto) 1.0 Eos # (Auto) 0.2 Baso # (Auto) 0.1 Abs Immat Gran (auto) 0.02 Absolute Neuts (auto) 5.0 Absolute Nucleated RBC 0.000 Nucleated RBC % (auto) 0.0 ESR Hold Purple Top Sodium 137 Potassium 4.5 Chloride 106 Carbon Dioxide 20 L Anion Gap 16 BUN 15 Creatinine 1.18 Estim Creat Clear Calc 63.2 Estimated GFR > 60 POC Glucose 142 H 141 H Random Glucose 125 H Lactic Acid Calcium 8.9 Magnesium Total Bilirubin AST ALT Alkaline Phosphatase C-Reactive Protein Total Protein Albumin Lipase Random Vancomycin 03/23/25 03/23/25 03/24/25 16:38 21:00 06:28 WBC RBC Hgb Hct MCV MCH MCHC RDW Plt Count MPV Immature Gran % (Auto) Neut % (Auto) Lymph % (Auto) [place] % (Auto) Eos % (Auto) Baso % (Auto) Lymph # (Auto) [place] # (Auto) Eos # (Auto) Baso # (Auto) Abs Immat Gran (auto) Absolute Neuts (auto) Absolute Nucleated RBC Nucleated RBC % (auto) ESR Hold Purple Top SEE NOTE Sodium Potassium Chloride Carbon Dioxide Anion Gap BUN Creatinine 1.13 Estim Creat Clear Calc 58.6 Estimated GFR > 60 POC Glucose 218 H 160 H Random Glucose Lactic Acid Calcium Magnesium Total Bilirubin AST ALT Alkaline Phosphatase C-Reactive Protein Total Protein Albumin Lipase Random Vancomycin 03/24/25 03/24/25 03/24/25 07:20 11:09 16:10 WBC RBC Hgb Hct MCV MCH MCHC RDW Plt Count MPV Immature Gran % (Auto) Neut % (Auto) Lymph % (Auto) [place] % (Auto) Eos % (Auto) Baso % (Auto) Lymph # (Auto) [place] # (Auto) Eos # (Auto) Baso # (Auto) Abs Immat Gran (auto) Absolute Neuts (auto) Absolute Nucleated RBC Nucleated RBC % (auto) ESR Hold Purple Top Sodium Potassium Chloride Carbon Dioxide Anion Gap BUN Creatinine Estim Creat Clear Calc Estimated GFR POC Glucose 157 H 151 H 217 H Random Glucose Lactic Acid Calcium Magnesium Total Bilirubin AST ALT Alkaline Phosphatase C-Reactive Protein Total Protein Albumin Lipase Random Vancomycin 03/24/25 03/24/25 03/25/25 20:04 20:42 07:01 WBC RBC Hgb Hct MCV MCH MCHC RDW Plt Count MPV Immature Gran % (Auto) Neut % (Auto) Lymph % (Auto) [place] % (Auto) Eos % (Auto) Baso % (Auto) Lymph # (Auto) [place] # (Auto) Eos # (Auto) Baso # (Auto) Abs Immat Gran (auto) Absolute Neuts (auto) Absolute Nucleated RBC Nucleated RBC % (auto) ESR Hold Purple Top SEE NOTE Sodium Potassium Chloride Carbon Dioxide Anion Gap BUN Creatinine 1.07 Estim Creat Clear Calc 65.6 Estimated GFR > 60 POC Glucose 182 H Random Glucose Lactic Acid Calcium Magnesium Total Bilirubin AST ALT Alkaline Phosphatase C-Reactive Protein Total Protein Albumin Lipase Random Vancomycin 9.6 L 03/25/25 03/25/25 03/25/25 07:05 11:13 16:23 WBC RBC Hgb Hct MCV MCH MCHC RDW Plt Count MPV Immature Gran % (Auto) Neut % (Auto) Lymph % (Auto) [place] % (Auto) Eos % (Auto) Baso % (Auto) Lymph # (Auto) [place] # (Auto) Eos # (Auto) Baso # (Auto) Abs Immat Gran (auto) Absolute Neuts (auto) Absolute Nucleated RBC Nucleated RBC % (auto) ESR Hold Purple Top Sodium Potassium Chloride Carbon Dioxide Anion Gap BUN Creatinine Estim Creat Clear Calc Estimated GFR POC Glucose 208 H 199 H 181 H Random Glucose Lactic Acid Calcium Magnesium Total Bilirubin AST ALT Alkaline Phosphatase C-Reactive Protein Total Protein Albumin Lipase Random Vancomycin 03/25/25 03/25/25 03/26/25 19:46 21:02 05:32 WBC RBC Hgb Hct MCV MCH MCHC RDW Plt Count MPV Immature Gran % (Auto) Neut % (Auto) Lymph % (Auto) [place] % (Auto) Eos % (Auto) Baso % (Auto) Lymph # (Auto) [place] # (Auto) Eos # (Auto) Baso # (Auto) Abs Immat Gran (auto) Absolute Neuts (auto) Absolute Nucleated RBC Nucleated RBC % (auto) ESR Hold Purple Top SEE NOTE Sodium Potassium Chloride Carbon Dioxide Anion Gap BUN Creatinine 1.18 Estim Creat Clear Calc 59.4 Estimated GFR > 60 POC Glucose 204 H Random Glucose Lactic Acid Calcium Magnesium Total Bilirubin AST ALT Alkaline Phosphatase C-Reactive Protein Total Protein Albumin Lipase Random Vancomycin 13.4 L 03/26/25 03/26/25 03/26/25 07:29 11:19 17:01 WBC RBC Hgb Hct MCV MCH MCHC RDW Plt Count MPV Immature Gran % (Auto) Neut % (Auto) Lymph % (Auto) [place] % (Auto) Eos % (Auto) Baso % (Auto) Lymph # (Auto) [place] # (Auto) Eos # (Auto) Baso # (Auto) Abs Immat Gran (auto) Absolute Neuts (auto) Absolute Nucleated RBC Nucleated RBC % (auto) ESR Hold Purple Top Sodium Potassium Chloride Carbon Dioxide Anion Gap BUN Creatinine Estim Creat Clear Calc Estimated GFR POC Glucose 197 H 166 H 190 H Random Glucose Lactic Acid Calcium Magnesium Total Bilirubin AST ALT Alkaline Phosphatase C-Reactive Protein Total Protein Albumin Lipase Random Vancomycin 03/26/25 03/27/25 03/27/25 20:21 05:14 06:14 WBC RBC Hgb Hct MCV MCH MCHC RDW Plt Count MPV Immature Gran % (Auto) Neut % (Auto) Lymph % (Auto) [place] % (Auto) Eos % (Auto) Baso % (Auto) Lymph # (Auto) [place] # (Auto) Eos # (Auto) Baso # (Auto) Abs Immat Gran (auto) Absolute Neuts (auto) Absolute Nucleated RBC Nucleated RBC % (auto) ESR Hold Purple Top SEE NOTE Sodium Potassium Chloride Carbon Dioxide Anion Gap BUN Creatinine 1.36 Estim Creat Clear Calc 51.6 Estimated GFR 52 POC Glucose 259 H Random Glucose Lactic Acid Calcium Magnesium Total Bilirubin AST ALT Alkaline Phosphatase C-Reactive Protein Total Protein Albumin Lipase Random Vancomycin 03/27/25 03/27/25 03/27/25 07:20 11:17 16:09 WBC RBC Hgb Hct MCV MCH MCHC RDW Plt Count MPV Immature Gran % (Auto) Neut % (Auto) Lymph % (Auto) [place] % (Auto) Eos % (Auto) Baso % (Auto) Lymph # (Auto) [place] # (Auto) Eos # (Auto) Baso # (Auto) Abs Immat Gran (auto) Absolute Neuts (auto) Absolute Nucleated RBC Nucleated RBC % (auto) ESR Hold Purple Top Sodium Potassium Chloride Carbon Dioxide Anion Gap BUN Creatinine Estim Creat Clear Calc Estimated GFR POC Glucose 134 H 284 H 285 H Random Glucose Lactic Acid Calcium Magnesium Total Bilirubin AST ALT Alkaline Phosphatase C-Reactive Protein Total Protein Albumin Lipase Random Vancomycin 03/27/25 03/27/25 03/28/25 19:51 20:59 05:21 WBC RBC Hgb Hct MCV MCH MCHC RDW Plt Count MPV Immature Gran % (Auto) Neut % (Auto) Lymph % (Auto) [place] % (Auto) Eos % (Auto) Baso % (Auto) Lymph # (Auto) [place] # (Auto) Eos # (Auto) Baso # (Auto) Abs Immat Gran (auto) Absolute Neuts (auto) Absolute Nucleated RBC Nucleated RBC % (auto) ESR Hold Purple Top SEE NOTE Sodium Potassium Chloride Carbon Dioxide Anion Gap BUN Creatinine 1.30 Estim Creat Clear Calc 53.9 Estimated GFR 55 POC Glucose 181 H Random Glucose Lactic Acid Calcium Magnesium Total Bilirubin AST ALT Alkaline Phosphatase C-Reactive Protein Total Protein Albumin Lipase Random Vancomycin 14.7 L 03/28/25 07:08 WBC RBC Hgb Hct MCV MCH MCHC RDW Plt Count MPV Immature Gran % (Auto) Neut % (Auto) Lymph % (Auto) [place] % (Auto) Eos % (Auto) Baso % (Auto) Lymph # (Auto) [place] # (Auto) Eos # (Auto) Baso # (Auto) Abs Immat Gran (auto) Absolute Neuts (auto) Absolute Nucleated RBC Nucleated RBC % (auto) ESR Hold Purple Top Sodium Potassium Chloride Carbon Dioxide Anion Gap BUN Creatinine Estim Creat Clear Calc Estimated GFR POC Glucose 223 H Random Glucose Lactic Acid Calcium Magnesium Total Bilirubin AST ALT Alkaline Phosphatase C-Reactive Protein Total Protein Albumin Lipase Random Vancomycin Narrative Narrative: Arterial US 03/2025 Impression: Moderate right proximal SFA stenosis EKG 10/2024 Atrial sensed ventricular paced rhythm, rate 10/10/24 No change compared to 11/2023 ECHO 11/17/24 Left atrium moderately dilated Interarterial septum appears intact An agitated saline (bubble study) was performed and was normal at rest and with Valsalva. 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 The LVEF 25-35% No evidence of left ventricular thrombus Airway Mallampati Class: II TM Dist: >3cm Neck ROM: Full Loose/Missing/Broken Teeth: No Heart: RRR Lungs: CTAB Assessment and Plan Final Anesthetic Review Family History of Problems with Anesthesia: No History of Problems with Anesthesia: No Documented by User: Radha Goodman DO 03/29/25 13:21 HPI - Anesthesia Eval Anesthesia Pre-Procedure Meds Is the patient on any of the following meds?: SGLT2 Inhib PMFSH Past Medical History Medical History (Updated 03/28/25 @ 14:53 by Tony Denny DO) Osteomyelitis of second toe of right foot Back pain Smoker Insomnia Amputated toe of left foot Anemia Low testosterone Hyperlipidemia Hypertension Carotid atherosclerosis Erectile dysfunction associated with type 2 diabetes mellitus Lumbar degenerative disc disease Gall bladder disease Finding of floating rib Spine disorder Pacemaker Stroke Diabetes 1.5, managed as type 2 Family History Family history of problems with anesthesia: No Surgical History Surgical History (Updated 03/26/25 @ 13:26 by Nikky Wise RN) History of surgery History of surgery History of appendectomy History of Problems with Anesthesia: No Social History Social History Household Members: Other Household Members Other:: roomate Both parents involved: No Caregiver staying overnight: No Housing: House Are you a primary field care manager to a significant other at home: No Do you presently have visiting nurse or other home services: No 75 years or older and lives alone: No Alcohol intake: current Alcohol intake frequency: does not drink Alcohol type: other Comment: single malt scotch Patient Tobacco Use Status: Current everyday Tobacco user Tobacco use type: Cigarette Cigarette Packs Per Day: 0.75 Cigarettes Per Day: 15 Years Smoked: 45 e-Cigarette/Vaping Use: Never Used Second Hand Smoke Exposure: No Substance Use Type: Marijuana Special yamilex needs: No service: No Current occupational status: retired Cognitive needs: No Hearing needs: No Vision needs: No Meds Allergies Allergy/AdvReac Type Severity Reaction Status Date / Time No Known Allergies Allergy Verified 03/29/25 12:33 Home Medications ?Medication ?Instructions ?Recorded ?Confirmed ?Last Taken ?Type flash glucose sensor (FreeStyle 11/24/23 03/22/25 Unknown History Dori 2 Sensor kit) pen needle, diabetic 32 gauge x 11/24/23 03/22/25 Unknown History 07/17 (NovoFine Plus) metformin 1,000 mg tablet 1,000 mg PO BID 03/20/24 03/23/25 03/22/25 History tirzepatide 5 mg/0.5 mL 5 mg subcut PHILLIP 12/05/24 03/23/25 03/18/25 History subcutaneous pen injector (Mounjaro) insulin degludec 100 unit/mL (3 See Rx Instructions .Route .COMPLEX 03/07/25 03/23/25 03/22/25 History mL) subcutaneous pen (Tresiba FlexTouch U-100 insulin) metoprolol succinate 25 mg 12.5 mg PO DAILY 03/22/25 03/23/25 03/22/25 History tablet,extended release 24 hr glipizide 5 mg tablet, extended 5 mg PO DAILY 03/23/25 03/23/25 03/22/25 History release 24 hr omeprazole 40 mg capsule,delayed 40 mg PO DAILY@0630 03/23/25 03/23/25 03/22/25 History release Exam Exam Date and Time: 03/29/25 1320 Height,Weight and Vital Signs: Height 5 ft 10 in Weight 68.3 kg Last Vital Signs Temp 98.1 F 03/28/25 07:30 Pulse 62 03/28/25 07:30 Resp 16 03/28/25 07:30 BP 164/88 H 03/28/25 07:30 Pulse Ox 98 03/28/25 07:30 O2 Del Method Room Air 03/28/25 07:30 O2 Flow Rate 2 03/26/25 15:32 Vital Signs Temperature 98.9 F 03/22/25 15:58 Pulse Rate 98 03/22/25 15:58 Respiratory Rate 16 03/22/25 15:58 Blood Pressure 105/57 L 03/22/25 15:58 Pulse Oximetry 99 03/22/25 15:58 Oxygen Delivery Method Room Air 03/22/25 15:58 Temperature 97.8 F 03/29/25 12:53 Pulse Rate 107 H 03/29/25 12:53 Respiratory Rate 14 03/29/25 12:53 Blood Pressure 98/53 L 03/29/25 12:53 Pulse Oximetry 98 03/29/25 12:53 Oxygen Delivery Method Room Air 03/29/25 12:53 Oxygen Flow Rate 100 03/28/25 20:00 Airway Mallampati Class: II TM Dist: >3cm Neck ROM: Full Loose/Missing/Broken Teeth: Yes (multiple broken teeth) Heart: S1S2 Assessment and Plan Assessment Anesthesia Assessment: Anesthesia Plan Discussed and Chart Reviewed Final Anesthetic Review Family History of Problems with Anesthesia: No History of Problems with Anesthesia: No NPO: Yes ASA Class: III Final Preanesthetic Review: No Changes in Pt Med Stat, Meds/Allgs Chart Reviewed, Consent Obtained/Reviewed and Anes Risks/Benef Reviewed Patient Risk: High Procedure Risk: Low Anesthetic Plan Anesthetic Plan: MAC: and Agree w/ Assess. and Plan Disposition: Standard PACU
--- NOTE | 2025-03-29 13:28 | MHC.SHP ---
Pre-Procedural Eval Section A - 24 Hr Update-Section A only Date of Service: 03/29/25 The patient is an INPATIENT: Yes Changes since office visit: Yes Patient answered all questions The patient has been examined within 24 hours of the surgical procedure. The History & Physical has been completed within 30 days and I have reviewed it.: Yes Section B - Complete if H&P > 30 days Chief Complaint: osteomyelitis,RT Allergies: Allergies Allergy/AdvReac Type Severity Reaction Status Date / Time No Known Allergies Allergy Verified 03/29/25 12:33 Plan I have reviewed the history and physical and performed a pertinent physical examination on my patient. No changes have occurred unless specified. Time Spent With Patient Time: Total time managing care of this patient today ____ minutes.
--- NOTE | 2025-03-29 13:39 | P.PNIM_ITS ---
Subjective Subjective Date of Service: 03/29/25 Interval History: No acute issues overnight. Remains NPO for surgery Review of Systems Denies chest pain Denies shortness of breath Denies nausea vomiting diarrhea Denies fever chills Physical Exam 2 Vital Signs: Vital Signs: Last Vital Signs Temp 97.8 F 03/29/25 12:53 Pulse 107 H 03/29/25 12:53 Resp 14 03/29/25 12:53 BP 98/53 L 03/29/25 12:53 Pulse Ox 98 03/29/25 12:53 O2 Del Method Room Air 03/29/25 12:53 O2 Flow Rate 100 03/28/25 20:00 BMI result Body Mass Index 21.6 Const: Other: Awake alert no acute distress Resp: Other: Clear to auscultation bilaterally no rales rhonchi or wheezes Cardio: Other: No S4; positive S1-S2; no S3 murmurs rubs or gallops GI: Other: Soft nontender nondistended normoactive bowel sounds Extrem: Other: No edema. Right 2nd toe necrotic Objective Data Active Medications Acetaminophen (Acetaminophen 325 Mg Tablet) 650 mg PO Q6H PRN PRN Reason: Pain, Mild 1-3,fever,headache Last Admin: 03/24/25 08:12 Dose: 650 mg Documented By: RENITA Atorvastatin Calcium (Atorvastatin Calcium 80 Mg Tablet) 80 mg PO DAILY [facility] Last Admin: 03/29/25 07:59 Dose: 80 mg Documented By: KHADRA Calcium Carbonate (Calcium Carbonate 750 Mg Tab.Chew) 750 mg PO Q4H PRN PRN Reason: Heartburn Dextrose (Dextrose 50 % 25 Gm/50 Ml Syringe) 25 gm IVPUSH Q15M PRN; Protocol PRN Reason: per Hypoglycemia Standing Ord. Glipizide (Glipizide Xl 5 Mg Tab.Er.24) 5 mg PO DAILY [facility] Last Admin: 03/29/25 06:59 Dose: Not Given Documented By: KHADRA Non-Admin Reason: NPO Glucose (Glucose Gel 15 Gm Gel..Gram.) 15 gm PO Q15M PRN; Protocol PRN Reason: per Hypoglycemia Standing Ord. Haloperidol Lactate (Haloperidol Lactate 5 Mg/Ml Vial) 1 mg IVPUSH ONCE PRN PRN Reason: intractable nausea Stop: 03/29/25 19:23 Hydromorphone HCl (Hydromorphone Hcl 0.5 Mg/0.5 Ml Syringe) 0.25 mg IVPUSH Q5M PRN PRN Reason: Pain, Moderate to Severe (Pain Scale 4-10) Stop: 03/29/25 19:22 Vancomycin HCl 1,500 mg/ (Sodium Chloride) 500 mls @ 333.333 mls/hr IV Q24H [facility] Last Infusion: 03/28/25 23:18 Dose: Infused Documented By: ANGEL Piperacillin Sod/Tazobactam (Sod 3.375 gm/ Sodium Chloride) 50 mls @ 100 mls/hr IV Q6H [facility] Last Infusion: 03/29/25 08:34 Dose: Infused Documented By: KHADRA Lactated Ringer's (Lr) 1,000 mls @ 80 mls/hr IVCONT .[id number] [facility] Last Admin: 03/29/25 12:58 Dose: 80 mls/hr Documented By: KODI Insulin Human Lispro (Insulin Lispro 100 Unit/Ml 3 Ml Vial) 0 unit SUBCUT QIDACHS [facility]; Protocol Last Admin: 03/29/25 11:36 Dose: 8 unit Documented By: KHADRA Comments: okay to give per Magnesium Hydroxide (Milk Of Magnesia 30 Ml Oral.Susp) 30 ml PO DAILY PRN PRN Reason: Constipation Last Admin: 03/25/25 08:51 Dose: 30 ml Documented By: RENITA Melatonin (Melatonin 3 Mg Tablet) 6 mg PO BEDTIME PRN PRN Reason: Insomnia Metoprolol Succinate (Metoprolol Succinate Er 12.5 Mg Halftab.Er.24h) 12.5 mg PO DAILY [facility]; Protocol Last Admin: 03/29/25 07:59 Dose: 12.5 mg Documented By: KHADRA Naloxone HCl (Naloxone Hcl 0.4 Mg/Ml Vial) 0.04 mg IVPUSH Q5M PRN PRN Reason: Excessive sedation or RR < 8 Omeprazole (Omeprazole 40 Mg Capsule.Dr) 40 mg PO DAILY@0630 [facility] Last Admin: 03/29/25 06:11 Dose: Not Given Documented By: ANGEL Non-Admin Reason: NPO Oxycodone HCl (Oxycodone Hcl Immed Release 5 Mg Tablet) 10 mg PO Q4H PRN PRN Reason: Pain, Severe (Pain Scale 7-10) Last Admin: 03/29/25 07:59 Dose: 10 mg Documented By: KHADRA Pharmacy Consult (Consult Rx Vancomycin Dosing) 1 each MISCELLANE DAILY PRN PRN Reason: Consult order Polyethylene Glycol (Polyethylene Glycol 3350 17 Gm Powd.Pack) 17 gm PO DAILY PRN PRN Reason: Constipation Sacubitril/Valsartan (Sacubitril/Valsartan 1 Tab Tablet) 1 tab PO BID [facility]; Protocol Last Admin: 03/29/25 07:59 Dose: 1 tab Documented By: KHADRA Sodium Chloride (0.9 % Sodium Chloride Flush 3 Ml Syringe) 3 ml IVFLUSH QSHIFT [facility] Last Admin: 03/29/25 07:59 Dose: 3 ml Documented By: KHADRA Trazodone HCl (Trazodone Hcl 100 Mg Tablet) 100 mg PO BEDTIME [facility] Last Admin: 03/28/25 22:34 Dose: 100 mg Documented By: LYSZ Labs 03/23/25 05:37 03/29/25 05:17 Labs: Laboratory Results - last 24 hr 03/28/25 03/28/25 03/28/25 16:00 19:55 20:46 Hold Purple Top Estim Creat Clear Calc Estimated GFR POC Glucose 187 H 208 H Random Vancomycin 15.0 03/29/25 03/29/25 03/29/25 05:17 07:44 11:22 Hold Purple Top SEE NOTE Estim Creat Clear Calc 61.5 Estimated GFR > 60 POC Glucose 241 H 304 H Random Vancomycin 03/29/25 13:01 Hold Purple Top Estim Creat Clear Calc Estimated GFR POC Glucose 279 H Random Vancomycin Assessment and Plan (1) Osteomyelitis of second toe of right foot: Status: Acute Plan 64-year-old male past medical history of HTN, HLD, dm, chronic back pain, cardiac pacemaker, CVA, floating rib; presented to the hospital today with a chief complaint of right foot ulcer. Noted have right 2nd toe cellulitis/osteomyelitis. Admitted for further management 1.Right 2nd toe cellulitis/osteomyelitis -vancomycin/Zosyn(6) -BCx negative @ 5 days -OR today 2.Hx of complete heartblock -S/P Grubbs XT DR CERDA SureScan [place] [facility] [place] 3.Diabetes Type 2 -hold metformin, Farxiga -insulin correction scale -adjust as indicated Pneumatic compression due to impending angiogram and subsequent amputation Code status: Full code Quality Stroke Does the patient have a stroke diagnosis?: No VTE Prior VTE?: No VTE Risk Level:: Medical - moderate - high VTE Device Contraindication: Treatment Not Indicated VTE Drug Contraindication: N/A - Med Ordered
--- NOTE | 2025-03-29 14:39 | W.PM.OPN ---
Operative Note Operative Note Date of Service: 03/29/25 Narrative: Operative note by [facility] Preoperative diagnosis: Wet gangrene right 2nd toe Postoperative diagnosis: Same Procedure: Right 2nd toe amputation Surgeon:Viktor Blanca M.D. Supervisor Char House: None Anesthesia: Local with sedation performed by anesthesia by Dr. Goodman Specimens: 1 Drains: Not Estimated blood loss: Minimal Indications: Very pleasant 64-year-old gentleman with nonhealing diabetic right 2nd toe ulcer. It had progressed on to wet gangrene. He now presents for amputation. The patient has signed the informed consent after reviewing risks, complications, benefits, and alternatives previously discussed with the patient. The patient was given the opportunity to ask any additional questions or voice any concerns. All questions were answered to the patient's satisfaction. Procedure in detail: Patient was brought to the operating room prior to which time-out was called for patient identification site verification right foot was prepped and draped in a standard surgical fashion. Curvilinear fishmouth incision was carried out over the right 2nd toe. This was taken down to the base of the metatarsal head. Using electrocautery we got through the soft tissue and adequate hemostasis was achieved. We thoroughly irrigated out the wound. Deep layer was reapproximated using 2-0 Polysorb superficial layer with a mattress 2-0 nylon along with skin delia. Xeroform and a sterile dressing were applied. At the end the case sponge instrument counts were correct. Patient tolerated the procedure well. Returned to recovery with stable vitals. This note is constructed using voice recognition software. While every effort has been made to ensure accuracy, service line bus cleaner errors may have been included. Thank you for allowing me to participate in the care of your patient. Yours sincerely, Viktor Blanca MD, FACS, R.P.V.I.
[2025-03-29 15:39] LABS: Glucose, Whole Blood 225 mg/dL (60-115)
[2025-03-29 20:25] LABS: Glucose, Whole Blood 314 mg/dL (60-115)
--- NOTE | 2025-03-29 20:50 | HE.PHANOTE ---
Re: Alice Renal function is improving. Trough returned at 15.6. Pt is therapeutic. Continue current dose of 1500mg q24h, with predicted AUC 502, predicted trough 13.5. Next trough 03/31 @ 1999.
[2025-03-30] MEDS: oxyCODONE HCl Immed Release 5 MG TABLET 10 MG PO ×3 (03:16→11:15)
[2025-03-30 03:53] VITALS: BP 111/54; PULSE 98; RESP 18; TEMP 36.6; O2SAT 97
[2025-03-30 05:48] LABS: MANUAL DIFF FLAG NO
[2025-03-30 05:58] LABS: Hematocrit 30.5 % (42.0-52.0); Hemoglobin 10.1 g/dl (14.0-18.0); Imm Gran Abs Auto 0.05 X10*3/uL (0.00-0.03); Imm Gran Pct Auto 0.5 % (0.0-0.4); Lymphocytes Absolute Auto 2.5 X10*3/uL (1.2-4.9); Mean Corpuscular HGB Conc 33.1 g/dl (31.0-36.0); Mean Corpuscular Hemoglobin 27.0 pg (27.0-33.0); Mean Corpuscular Volume 81.6 fL (80.0-98.0); NRBC Abs Auto 0.000 X10*3/uL (0.0-0.012); NRBC Pct Auto 0.0 /100WBC (0.0-0.2); Platelet Count 356 X10*3/uL (160-400); Red Blood Count 3.74 X10*6/uL (4.60-5.80); White Blood Count 9.5 X10*3/uL (4.8-10.8)
[2025-03-30 06:22] LABS: Alanine Aminotransferase < 6 U/L (0-40); Albumin Level 3.1 g/dL (3.5-5.0); Alkaline Phosphatase 39 U/L (39-117); Anion Gap 16 (12-20); Aspartate Amino Transferase 17 U/L (5-37); Blood Urea Nitrogen 20 mg/dL (9-16); Calcium 8.7 mg/dL (8.4-10.2); Carbon Dioxide 23 mmol/L (22-29); Chloride 100 mmol/L (96-108); Creatinine Clr Calc Pharmacy 53.1; Estimated Glomerular Filt Rate 54; Potassium 4.4 mmol/L (3.3-5.1); Sodium 135 mmol/L (135-145); Total Protein 5.4 g/dL (6.5-8.0)
[2025-03-30 07:15] VITALS: BP 92/55; PULSE 104; RESP 18; TEMP 36.4; O2SAT 100
[2025-03-30] MEDS: 0.9 % Sodium Chloride Flush 3 ML SYRINGE IVFLUSH (07:25)
[2025-03-30 07:39] LABS: Glucose, Whole Blood 273 mg/dL (60-115)
--- NOTE | 2025-03-30 08:49 | HO.POSTANES ---
Post Anesthesia Evaluation Post Anesthesia Evaluation Date of Service: 03/30/25 Vital Signs: Vital Signs Temp Pulse Resp BP Pulse Ox O2 Del Method 03/30/25 07:15 97.5 F 104 H 18 92/55 L 100 Room Air 03/30/25 03:53 97.8 F 98 18 111/54 L 97 Room Air Anesthesia: Monitored and General Mental Status: Awake Pain Control: Satisfactory Nausea/Vomiting: None Hydration: Adequate Anesthesia-Related Issues: No Anes. Related Issues
--- NOTE | 2025-03-30 08:53 | PC.NURSE ---
Refusing Fall risk interventions.
[2025-03-30 11:18] LABS: Glucose, Whole Blood 204 mg/dL (60-115)
--- NOTE | 2025-03-30 13:13 | PC.NURSE ---
This patient in 367 walked off the unit to [facility] down stairs, notified, PT in to see patient.
--- NOTE | 2025-03-30 13:53 | P.DS_ITS ---
DS: Providers Provider Date of Service: 03/30/25 Date of admission: 03/22/25 21:37 Date of discharge: 03/30/25 Primary care physician: Joao Stanford MD Consults: 03/22/25 21:38 Consult to Infectious Diseases Routine Consulting Provider: [facility] [place] [facility] Reason for consultation: osteomyelitis Consult to Vascular Surgery Routine Consulting Provider: [facility] [place] [facility] Reason for consultation: DM foot ulcer/osteomyelitis 03/26/25 23:33 Consult to Wound Care Routine Reason for consultation: R foot cellulitis DS: Diagnosis Discharge Diagnosis (1) Osteomyelitis of second toe of right foot: Status: Acute DS: Summary Hospital Course Hospital Course: 64-year-old male with a history of hypertension hyperlipidemia diabetes presents to the hospital originally with complaint of a right foot ulcer. Patient states over the 10 days prior to arriving at the ER his 2nd toe has been red without discharge. He denies fever chills. He was admitted through the ER where workup demonstrated osteomyelitis of the right 2nd toe. He was seen in consultation by vascular surgery and on 03/29/2025 underwent amputation of right 2nd toe. He did well through the procedure in his postop was on remarkable. Seen by vascular surgery who has cleared him for discharge. He will discharge home to complete a course of oral Augmentin and a short course of oxycodone for pain. He will follow up with Dr. Blanca in the office Time Attestation Discharge Coordination Time (in mins): 35 Quality: Safe Use of Opioids Does Pt have an Active Cancer Diagnosis on the Problem List?: No Quality: Stroke Does the patient have a stroke diagnosis?: No Physical Exam Vital Signs: Vital Signs: Last Vital Signs Temp 97.5 F 03/30/25 07:15 Pulse 104 H 03/30/25 07:15 Resp 18 03/30/25 07:15 BP 92/55 L 03/30/25 07:15 Pulse Ox 100 03/30/25 07:15 O2 Del Method Room Air 03/30/25 07:15 O2 Flow Rate 6 03/29/25 14:24 BMI result Body Mass Index 21.6 Const: Other: Awake alert no acute distress Resp: Other: Clear to auscultation bilaterally no rales rhonchi or wheezes Cardio: Other: No S4; positive S1-S2; no S3 murmurs rubs or gallops GI: Other: Soft nontender nondistended normoactive bowel sounds Extrem: Other: No edema. Right 2nd toe necrotic DS: Data Data Completed and Pending Pending studies at discharge: Pending at discharge 03/29/25 14:02 Surgical [PTH] Routine Labs on day of discharge: Laboratory Results - last 24 hr 03/29/25 03/29/25 03/29/25 15:34 20:10 20:20 WBC RBC Hgb Hct MCV MCH MCHC RDW Plt Count MPV Immature Gran % (Auto) Neut % (Auto) Lymph % (Auto) [place] % (Auto) Eos % (Auto) Baso % (Auto) Lymph # (Auto) [place] # (Auto) Eos # (Auto) Baso # (Auto) Abs Immat Gran (auto) Absolute Neuts (auto) Absolute Nucleated RBC Nucleated RBC % (auto) Sodium Potassium Chloride Carbon Dioxide Anion Gap BUN Creatinine Estim Creat Clear Calc Estimated GFR POC Glucose 225 H 314 H Fasting Glucose Calcium Total Bilirubin AST ALT Alkaline Phosphatase Total Protein Albumin Random Vancomycin 15.6 03/30/25 03/30/25 03/30/25 05:12 07:20 11:12 WBC 9.5 RBC 3.74 L Hgb 10.1 L Hct 30.5 L MCV 81.6 MCH 27.0 MCHC 33.1 RDW 15.9 Plt Count 356 MPV 10.5 Immature Gran % (Auto) 0.5 H Neut % (Auto) 58.1 Lymph % (Auto) 26.8 [place]lette % (Auto) 8.8 Eos % (Auto) 4.9 H Baso % (Auto) 0.9 Lymph # (Auto) 2.5 [place] # (Auto) 0.8 Eos # (Auto) 0.5 H Baso # (Auto) 0.1 Abs Immat Gran (auto) 0.05 H Absolute Neuts (auto) 5.5 Absolute Nucleated RBC 0.000 Nucleated RBC % (auto) 0.0 Sodium 135 Potassium 4.4 Chloride 100 Carbon Dioxide 23 Anion Gap 16 BUN 20 H Creatinine 1.32 Estim Creat Clear Calc 53.1 Estimated GFR 54 POC Glucose 273 H 204 H Fasting Glucose 240 H Calcium 8.7 Total Bilirubin 0.3 AST 17 ALT < 6 Alkaline Phosphatase 39 Total Protein 5.4 L Albumin 3.1 L Random Vancomycin Discharge Plan Discharge Anticipated Discharge Date/Time: 03/30/25 13:34 Patient Disposition: Home Health Service Discharge Diagnosis: Osteomyelitis right 2nd toe Referrals: Shira ANG[facility] [Outside] - 3-5 Days Referral Note: [facility]ira ANGELO will call you to schedule home nursing visits Joao Stanford MD [Primary Care Provider, Internal Medicine] - 1 Week Discharge Medications: New amoxicillin-pot clavulanate 875-125 mg tablet 1 tab PO BID Qty: 14 0RF oxycodone 15 mg tablet 15 mg PO Q6H PRN (Reason: pain) Qty: 20 0RF Rx Instructions: Partial Fill upon patient request. Continued rosuvastatin 40 mg tablet 40 mg PO DAILY 90 Days Qty: 90 3RF tadalafil [Cialis] 5 mg tablet 5 mg PO DAILY 90 Days Qty: 90 3RF Rx Instructions: MIKE TIWARI Group [facility] [address] [id number] Entresto 24-26 mg tablet 1 tab PO BID 90 Days Qty: 180 3RF dapagliflozin propanediol [Farxiga] 10 mg tablet 10 mg PO DAILY 90 Days Qty: 90 3RF trazodone 100 mg tablet 100 mg PO DAILY 30 Days Qty: 30 3RF omeprazole 40 mg capsule,delayed release(DR/EC) 40 mg PO DAILY@0630 glipizide 5 mg tablet extended release 24hr 5 mg PO DAILY (DME) NovoFine Plus 32 gauge x 1/6 needle See Rx Instructions .Route Rx Instructions: As directed (DME) FreeStyle Dori 2 Sensor Kit See Rx Instructions .Route Rx Instructions: As directed metformin 1,000 mg tablet 1,000 mg PO BID (DME) blood pressure monitor Kit See Rx Instructions .ROUTE .MEDSUPPLY Qty: 1 0RF Rx Instructions: Automatic, Digital. Dx: I10. Daily As directed, 999 days/lifetime Mounjaro 5 mg/0.5 mL pen injector 5 mg subcut PHILLIP insulin degludec [Tresiba FlexTouch U-100] 100 unit/mL (3 mL) insulin pen See Rx Instructions .ROUTE .COMPLEX Patient Comments: Patient not sure how many units he last used. Rx Instructions: Pt does based on his sugar levels. clotrimazole 1 % cream 1 appl topical BID 28 Days Qty: 45 0RF metoprolol succinate 25 mg tablet extended release 24 hr 12.5 mg PO DAILY Discharge Orders: Discharge Order (Routine); Ordered 03/30/25 Ordered By: Tony Denny Diet: Advance to usual diet Activity on Discharge: As tolerated Stand Alone Forms: Patient Portal Discharge page Print Language: Trinidadian Activity Restrictions/Additional Instructions: Right foot dressing; Xeroform dressing followed by dry sterile dressing/Kerlix changed 3 times a week until seen in office Care Plan Goals: Resume all medicines as taken prior to the hospital Health Concerns: An antibiotic Augmentin has been added to your regimen. It will be twice a day for 7 days. A script for oxycodone has been sent to your pharmacy Plan of Treatment: Dr. Blanca's office will call you for follow up. Follow up with the PCP as scheduled Assessment: See discharge summary Patient Instructions: Toe Amputation (DC)
--- NOTE | 2025-03-30 13:58 | W.MHC.F2F ---
Service Date Service Date: 03/30/25 Encounter Date of encounter: 03/30/25 Encounter: Acute hospitalization Reasons for Services Signs and symptoms assessed: Dressing changes right foot status post toe amputation Reason for group home: wound care and other (Xeroform dressing followed by gauze and Kerlix wrap to right amputation site 3 times a week) Homebound: Leaving the home is medically contraindicated at this time without the asist of a device and/or another person due th the listed conditions above and below. Reason homebound: unsteady gait / fall risk and pain with ambulation Certification: Based on the above findings, I certify that this patient is confined to the home and needs intermittent group home care, physical therapy and/or speech therapy, or continues to need occupational therapy. The patient is under my care, and I have initiated the establishment of the plan of care. The patient will be followed by a physician who will periodically review the plan of care. Time Spent With Patient Time: Total time managing care of this patient today ____ minutes.
--- NOTE | 2025-03-30 14:25 | MHC.CM.PN ---
Addendum entered by Mary Urias RN 03/30/25 14:58: [facility] accepted. LM for patient to inform, including VNA contact information. Original Note: Per MD patient medically cleared for dc home w/ services. Initially [facility] had accepted. However, patient notified this CM that he would now be staying at a new address [id number] [place]. CM informed patient would need to verify [facility]'s service area. Before CM could follow up with patient, patient left unit without staff knowledge. LM for patient to inform that [facility] cannot service [place] and 36 referrals have been sent to find a VNA that accepts [employer] insurance and services [place]. No accepting VNAs at this time. Requested call back from patient to discuss.
--- NOTE | 2025-04-05 07:18 | P.CDIM_ITS ---
PROVIDER RESPONSE TEXT: To clarify, the appropriate diagnosis supported by the clinical indicators: Acute QUERY TEXT: PHYSICIAN'S DOCUMENTATION REQUEST Date of Query: 03/26/2025 10:28 AM EDT Patient Name: MARIE LUKE Admit Date: 03/23/2025 Dear Edgar BENTON, A review of the medical record indicates additional documentation may be needed. Please review below and update the documentation accordingly. Clinical Indicators: per Hospitalist progress note 03/25/25: right second toe with erythema, cellulitis, osteomyelitis IV Vancomycin and Zosyn Clarify which of the following accurately represents the acuity of the Osteomyelitis. Possible options might include: Acute Acute on chronic Compensated Chronic stable condition Remission Other (explain) Clinically unable to determine (explain) Thank you, Katerin Nixon RN Use of terms such as suspected, likely, concern for, or probable (associated with a specific diagnosis that is being evaluated, monitored, or treated as if it exists) are acceptable and can be coded in the inpatient setting, when documented at the time of discharge. Please use your independent medical judgment in providing your response. THIS QUERY IS PART OF THE PERMANENT MEDICAL RECORD
== END 2025-03-30 14:03 | disposition home health service (06) | DRG 256 ==
LOC: HO.ED 22:14 → HO.EDOVER 22:20 → HO.S3 03-23 07:22 → HO.EDOVER 03-23 07:23 → HO.IMC 03-23 15:01 → HO.S3 03-25 11:19
PROVIDERS: Physician Assistant Medical; Student in an Organized Health Care Education/Training Program; Surgery Vascular Surgery; Admitting Provider Hospitalist; Emergency Provider Emergency Medicine; PCP Family Medicine; Visit Provider Hospitalist
PROC: B40D1ZZ Plain Radiography of Aorta and Bilateral Lower Extremity Arteries using Low Osmolar Contrast (ICD-10-PCS; principal; 2025-03-26 13:30)
PROC: 0Y6R0Z0 Detachment at Right 2nd Toe, Complete, Open Approach (ICD-10-PCS; principal; 2025-03-29 13:40)
DX: E11.52 Type 2 diabetes mellitus with diabetic peripheral angiopathy with gangrene (principal); I44.2 Atrioventricular block, complete; I70.261 Atherosclerosis of native arteries of extremities with gangrene, right leg; M86.171 Other acute osteomyelitis, right ankle and foot; F17.210 Nicotine dependence, cigarettes, uncomplicated; Z71.6 Tobacco abuse counseling; M54.9 Dorsalgia, unspecified; G89.29 Other chronic pain; E11.69 Type 2 diabetes mellitus with other specified complication; L97.519 Non-pressure chronic ulcer of other part of right foot with unspecified severity; Z95.0 Presence of cardiac pacemaker; K21.9 Gastro-esophageal reflux disease without esophagitis; Z79.4 Long term (current) use of insulin; Z79.85 Long-term (current) use of injectable non-insulin antidiabetic drugs; Z79.899 Other long term (current) drug therapy
CPT/HCPCS: 36247; 36415; 73660; 74176; 75630; 76937; 80048; 80053; 80202; 82565; 82947; 83605; 83690; 83735; 85025; 85652; 86140; 87040; 88305; 88311; 93005; 93925; 97162; 99285; C1760; C1769; C1887; C1894; J1171; J1644; J1650; J2003; J2250; J2270; J2371; J2405; J2543; J2704; J2795; J3010; J3374; J7120; Q9967

== ENCOUNTER → 2025-03-22 16:03 | Outpatient (BNV) | payer OTHER, MEDICAID, SELFPAY | PROVIDERS: PCP Family Medicine; Visit Provider Radiology Diagnostic Radiology | DX: M86.171 Other acute osteomyelitis, right ankle and foot (principal) | CPT/HCPCS: 73660 ==

== ENCOUNTER 2025-03-22 21:37 | Outpatient (BNV) | payer OTHER, SELFPAY | END 2025-03-23 00:07 | PROVIDERS: Admitting Provider Hospitalist; Emergency Provider Emergency Medicine; PCP Family Medicine; Visit Provider Radiology Diagnostic Radiology | DX: K80.20 Calculus of gallbladder without cholecystitis without obstruction (principal); I70.211 Atherosclerosis of native arteries of extremities with intermittent claudication, right leg | CPT/HCPCS: 74176; 93925 ==

== ENCOUNTER 2025-03-22 21:37 | Outpatient (BNV) | payer OTHER, SELFPAY | END 2025-03-28 14:17 | PROVIDERS: Admitting Provider Hospitalist; Emergency Provider Emergency Medicine; PCP Family Medicine; Visit Provider Internal Medicine | DX: I49.3 Ventricular premature depolarization (principal); Z95.0 Presence of cardiac pacemaker | CPT/HCPCS: 93010 ==

== ENCOUNTER → 2025-03-22 21:37 | Outpatient (BNV) | payer OTHER, SELFPAY | PROVIDERS: Admitting Provider Hospitalist; Emergency Provider Emergency Medicine; PCP Family Medicine; Visit Provider Internal Medicine | DX: E11.621 Type 2 diabetes mellitus with foot ulcer (principal); L97.513 Non-pressure chronic ulcer of other part of right foot with necrosis of muscle | CPT/HCPCS: 99222 ==

== ENCOUNTER → 2025-03-22 21:37 | Outpatient (BNV) | payer OTHER, SELFPAY | PROVIDERS: Admitting Provider Hospitalist; Emergency Provider Emergency Medicine; PCP Family Medicine; Visit Provider Hospitalist | DX: M86.9 Osteomyelitis, unspecified (principal) | CPT/HCPCS: 99223; 99232; 99233; 99239; G0180 ==

== ENCOUNTER → 2025-03-22 21:37 | Outpatient (BNV) | payer OTHER, SELFPAY | PROVIDERS: Admitting Provider Hospitalist; Emergency Provider Emergency Medicine; PCP Family Medicine; Visit Provider Surgery Vascular Surgery | DX: M86.9 Osteomyelitis, unspecified (principal) | CPT/HCPCS: 36247; 75625; 75710; 76937; 99152; 99222; 99232 ==

== ENCOUNTER 2025-04-12 10:50 | Outpatient (AMB) | payer OTHER, SELFPAY ==
--- NOTE | 2025-04-12 10:53 | A.OFFVIS_ITS ---
Intake Visit Reasons: 2 week follow up toe amp 03/29/25 Intake Note: 2 week follow up Right 2nd toe amp 03/29/25. Pt states [facility] came once but doesnt need them, he has been changing dressing himself w/ a plain 4x4 guaze. Mobility Specialist Required: No Accompanied by: Self / Same As Patient Allergies No Known Allergies Allergy (Verified 04/12/25 10:58) HPI HPI 2 week follow up toe amp 03/29/25: Details: The patient is a 64-year-old male presenting for follow-up after right second toe amputation. The amputation was performed on March 29, 2025, and the patient reports that the foot feels good. The patient had a consultation with Dr. Ferrell, the auger supervisor who referred him to the hospital, and was informed that he was a good patient and the procedure went well. During the examination, the physician noted that the foot is healing well with some dry areas present. Sutures and delia are still in place, and there is a plan to remove them during this visit. The patient inquired about showering and was advised that it is now safe to do so, provided the foot is kept dry. [facility] Medical History (Updated 04/13/25 @ 11:03 by Viktor Blanca MD) PAD (peripheral artery disease) Diabetic ulcer of right foot Diabetes Osteomyelitis of second toe of right foot Back pain Smoker Insomnia Amputated toe of left foot Anemia Low testosterone Hyperlipidemia Hypertension Carotid atherosclerosis Erectile dysfunction associated with type 2 diabetes mellitus Lumbar degenerative disc disease Gall bladder disease Finding of floating rib Spine disorder Pacemaker Stroke Diabetes 1.5, managed as type 2 Surgical History History of surgery History of surgery History of appendectomy Social History Household Members: Other Household Members Other:: roomate Both parents involved: No Caregiver staying overnight: No Housing: House Are you a primary healthcare insurance sales agent to a significant other at home: No Do you presently have visiting nurse or other home services: No 75 years or older and lives alone: No Alcohol intake: current Alcohol intake frequency: does not drink Alcohol type: other Comment: single [facility] Patient Tobacco Use Status: Current everyday Tobacco user Tobacco use type: Cigarette Cigarette Packs Per Day: 0.75 Cigarettes Per Day: 15 Years Smoked: 45 e-Cigarette/Vaping Use: Never Used Second Hand Smoke Exposure: No Substance Use Type: Marijuana Special yamilex needs: No service: No Current occupational status: retired Cognitive needs: No Hearing needs: No Vision needs: No Review of Systems Const All systems reviewed & are unremarkable except as noted in HPI and below Reports no additional complaints ENT Reports Normal hearing present Card Denies chest pain, Denies chest pain at rest, Denies chest pain with activity and Denies pedal edema Resp Denies cough GI Denies abdominal pain Musc Denies abnormal gait, Denies muscle cramps and Denies radiating pain into limb Skin/Breast Denies skin ulcer and Denies wounds Neuro Reports Normal hearing present and Denies abnormal gait Psych Reports no additional complaints Physical Exam Const General: cooperative, healthy appearing and comfortable Orientation/consciousness: oriented to person, oriented to place and oriented to time HEENT Head: Yes normal to inspection Neck Neck: Yes normal visual inspection Carotids: no bruits Chest Chest palpation & inspection: normal inspection of the chest Resp Effort & Inspection: normal respiratory effort and able to speak in complete sentences Auscultation: clear to auscultation bilaterally, no crackles, no rales, no rhonchi and no wheezes Cardio Rate: regular rate Rhythm: regular rhythm Heart sounds: S1 normal heart sound present and S2 normal heart sound present Bruits: no carotid bruits Peripheral pulses: Peripheral pulses 2+ throughout GI Inspection: Yes normal to inspection Skin Other: Right 2nd toe amputation site healing well. Small opening in the distal portion. Wounds: no wounds Hair: normal Neuro General: oriented to person, oriented to place and oriented to time Cranial nerves: Yes CN's II-XII intact bilaterally and Yes Normal hearing present Cognition (Neuro): normal cognition Motor exam (neuro): 5/5 motor strength present throughout Extrem Other: venous exam: No significant superficial varicosities or spider telangiectasias, minimal edema General: No clubbing, No cyanosis and No edema Psych Appearance: grossly normal Mental Status: mental status grossly normal Speech and movement: Normal speech and movement present Assessment & Plan Assessment & Plan (1) PAD (peripheral artery disease): Comment: 03/26/2025 - diagnostic angiogram 03/29/2025 - right 2nd toe amputation Code(s): I73.9 - Peripheral vascular disease, unspecified Category: Medical Plan: I discussed with the patient the progress of his healing post-amputation and confirmed that the foot is healing well. We agreed on the removal of sutures and delia during this visit and planned a follow-up in two weeks to ensure complete closure of the surgical site. I advised the patient that he can now shower, provided he keeps the foot dry. Plan Patient was informed and verbally consented to the use of an ambient scribe for clinic note documentation during this visit. Patient Instructions: - Follow up in two weeks for a check-up to ensure complete healing. - Keep the foot dry when showering. - Sutures and delia will be removed during this visit. Coding Level of Care Code Est Pt Level 4 (18401) Complex EM visit Add On G2211 Diagnoses PAD (peripheral artery disease) I73.9
--- OUTSIDE RECORDS SUMMARY | 2025-04-12 12:42 | XMS_ITS | Patient Health Record ---
Author Organization [employer] [facility] Address [address] [address] [address] [place] [address] Care Team Providers Care Pain Coordinator Name Role Phone José Frazier Primary Care Provider Unavailab Hernadez JAYLA Unavailable [phone] Allergies No Known Allergies Reason For Referral [...] 1MG PER DOSE (1X4MG PEN) *Reorder from [employer] for eRx and Interaction Alerts* Unknown ZTlido [...] W/U Status Risk Notes Problem Lumbar radiculopathy (940645542) Lumbar radiculopathy (M54.16) Active confirmed Problem Lumbosacral spondylosis without myelopathy (16254038) Other spondylosis, lumbar region (M47.896) Active confirmed Problem Lumbosacral spondylosis without myelopathy (04978509) Other spondylosis, lumbosacral region (M47.897) Active confirmed Problem Spinal stenosis of lumbar region (81175838) Spinal stenosis, lumbosacral region (M48.07) Active confirmed Problem Disorder of lumbar disc (040162050) Other intervertebral disc disorders, lumbar region (M51.86) Active confirmed Problem Disorder of lumbosacral intervertebral disc (959460706) Other intervertebral disc disorders, lumbosacral region (M51.87) Active confirmed Problem Spasm of back muscles (450855774) Muscle spasm of back (M62.830) Active confirmed Problem Spasm (09714562) Other muscle spasm (M62.838) Active confirmed Problem Muscle pain (67276408) Myalgia, other site (M79.18) Active confirmed Problem Low back pain (728944844) Low back pain, unspecified (M54.50) Active confirmed Problem Lumbosacral spondylosis without myelopathy (91235830) Spondylosis w/o myelopathy or radiculopathy, lumbar region (M47.816) Active confirmed Problem Lumbosacral spondylosis without myelopathy (38721129) Spondyls w/o myelopathy or radiculopathy, lumbosacr region (M47.817) Active confirmed Plan Of Treatment Pending Test Test Name Order Date 63268 Lumbar/Caudal WILFRID 05/04/2022 Future Test Test Name Order Date 11727 Lumbar/Caudal WILFRID 08/05/2022 Insurance Providers Payer Name Payer Address Payer Phone Subscriber Number Group Number Insured Name Patient Relationship to Insured Coverage Start Date Coverage End Date [facility] DUAL COMP MDCR HMO [address] [address] [place] [address] [id number] Florentin Begum Self - patient is the insured 3 LAB -[facility] [place] [address] [address] [place], [place] [id number] Florentin Ni Self - patient is the insured 3 Medical (General) History Medical History History ICD Code diabetes stroke Surgical History Surgery Date(Month/Year) Appendectomy
--- OUTSIDE RECORDS SUMMARY | 2025-04-12 12:42 | XMS_ITS | Patient Health Record ---
Author Organization [facility] Address [address] [place] [address] Care Team Providers Care Websphere Portal Architect Name Role Phone José Frazier MD Primary Care Provider Luis Pan Unavailable [phone] Allergies No Known Allergies Reason For Referral No Information Medications Medication SIG (Take, Route, Frequency, Duration) Notes Start Date End Date Status Omeprazole 40 MG 1 capsule 30 minutes before morning meal Orally Once a day; Duration: 90 days Active Tresiba FlexTouch 100 UNIT/ML inject 30 units Subcutaneous daily; Duration: 100 days Active Pen [place] 32G X 6 MM use with insulin [...] Status W/U Status Risk Notes Problem Hypercalcemia (92035420) Hypercalcemia (E83.52) Active confirmed Problem 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 mellitus (454281140) Type 2 diabetes mellitus with other diabetic neurological complication (E11.49) Active confirmed Problem Vitamin D deficiency (23255301) Vitamin D deficiency (E55.9) Active confirmed Problem Dyslipidemia (770487663) Dyslipidemia (E78.5) Active confirmed Problem Hyperglycemia due to type 2 diabetes mellitus (377736506315015) Type 2 diabetes mellitus with hyperglycemia (E11.65) Active confirmed Problem Essential hypertension (87481553) Essential (primary) hypertension (I10) Active confirmed Problem Disorder of calcium metabolism (34657261) 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
--- OUTSIDE RECORDS SUMMARY | 2025-04-12 12:42 | XMS_ITS | Continuity of Care Document ---
Author Organization [facility] [address] [place] [address] Phone [phone] Problems Active Problems Provider Date Type 2 [...] SIG Qnty Indications Order ing Provider Date Syxzvlaz7ap/0.5ML Solution Auto-Inject inject 5 mg subcutaneously once weekly 2ml Sarah Li NP 11/15/2024 Pen Bijhlql30P X 4 mm Misc use one needle with insulin tacos, use three times a day 100units Mona Muhammad M.D. 08/16/2024 Freestyle Dori 2/Mildred/Flash Glucose Monitoring Aahbvt9Vvbsds Device use as directed with sensors 1units E11.9 Mona Muhammad M.D. 09/20/2023 Freestyle Dori 2/Sensor/Flash Glucose Monitoring Oqhugr1Iyoeuw Misc 1 sensor to skin every fourteen days as directed dx: e11.9 3units E11.9 Mona Muhammad M.D. 09/20/2023 Ztlido1.8% Patches 1 patch daily Unknown Aspirin 8181mg Tablets DR 1 by mouth every day Unknown 00/00/0 000 Ketoconazole2% Cream Unknown Accu-Chek GuideStrips Unknown Rmklmkc93eh Tablets Take 1 tablet by mouth daily 90tabs Mona Muhammad M.D. Tresiba Ufzfudqmb565Gfnd/ML Solution Pen-Inject Administer 30 Units Under The Skin Daily 30units E11.21 Mona Muhammad M.D. Moqtgfqvnc88zt Capsules DR Take 1 capsule by mouth daily 90caps Mona Muhammad M.D. Metformin MOE9082tm Tablets Take 1 Tablet By Mouth Twice Daily 180tabs Mona Muhammad M.D. Accu-Chek GuideStrips Unknown Rosuvastatin Ysrpwcs63lv Tablets Take 1 tablet by mouth daily Unknown Losartan Kstxiycuk52py Tablets Take 1 tablet by mouth daily Unknown Trazodone EVB731mx Tablets Take 1 tablet by mouth at [...] 09/17/2023 Inhouse Hemoglobin A1c 8.2% 1 Test(s) 674291-Qezmr terone was developed and its performance characteristics determined by [facility]. It has not been cleared or approved by the Food and Drug Administration. Test(s) 873487-Lhdfp Activity, Plasma was developed and its performance characteristics determined by [facility]. It has not been cleared or approved by the Food and Drug Administration. 2 Normal: 0 - 29 Moderately increased: 30 - 300 Severely increased: >300 Procedures Date Code Description Status 12/29/2023 40218 Glucose Monitoring Interpeta tion And Report Completed [...] Zuniga DPM [facility] Closed [address] [place] [address] [phone]
== END 2025-04-12 11:19 | disposition home or self-care (01) ==
LOC: HO.HVS 10:51
PROVIDERS: PCP Family Medicine; Visit Provider Surgery Vascular Surgery
DX: I73.9 Peripheral vascular disease, unspecified (principal); Z89.421 Acquired absence of other right toe(s)
CPT/HCPCS: 99024

== ENCOUNTER → 2025-04-12 10:50 | Outpatient (BNVA) | payer OTHER, SELFPAY | PROVIDERS: PCP Family Medicine; Visit Provider Surgery Vascular Surgery | DX: Z47.81 Encounter for orthopedic aftercare following surgical amputation (principal); Z89.421 Acquired absence of other right toe(s); I73.9 Peripheral vascular disease, unspecified | CPT/HCPCS: 99212 ==

== ENCOUNTER 2025-04-26 10:43 | Outpatient (AMB) | payer OTHER, SELFPAY ==
--- NOTE | 2025-04-26 11:00 | A.OFFVIS_ITS ---
Intake Visit Reasons: 2 week follow up wound check Intake Note: 2 week follow up Right 2nd toe amp 03/29/25. Pt states no drainage Accompanied by: Self / Same As Patient Allergies No Known Allergies Allergy (Verified 04/26/25 11:03) HPI HPI 2 week follow up wound check: Details: The patient is a 64-year-old male presenting for follow-up after toe amputation. He underwent an angiogram and toe amputation on March 29, 2025, following a referral from the podiatry team. Currently, he is experiencing issues with wound cleanliness and minor infection, as indicated by the presence of debris and hair in the wound. The patient has been advised to keep the wound clean and covered to prevent further infection. He was instructed to use gauze and foam to cover the wound and to change the dressing daily. 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 Back pain Smoker Insomnia Amputated toe of left foot Anemia Low testosterone Hyperlipidemia Hypertension Carotid atherosclerosis Erectile dysfunction associated with type 2 diabetes mellitus Lumbar degenerative disc disease Gall bladder disease Finding of floating rib Spine disorder Pacemaker Stroke Diabetes 1.5, managed as type 2 Surgical History History of surgery History of surgery History of appendectomy Social History Household Members: Other Household Members Other:: roomate Both parents involved: No Caregiver staying overnight: No Housing: House Are you a primary care director rn to a significant other at home: No Do you presently have visiting nurse or other home services: No 75 years or older and lives alone: No Alcohol intake: current Alcohol intake frequency: does not drink Alcohol type: other Comment: single malt scotch Patient Tobacco Use Status: Current everyday Tobacco user Tobacco use type: Cigarette Cigarette Packs Per Day: 0.75 Cigarettes Per Day: 15 Years Smoked: 45 e-Cigarette/Vaping Use: Never Used Second Hand Smoke Exposure: No Substance Use Type: Marijuana Special yamilex needs: No service: No Current occupational status: retired Cognitive needs: No Hearing needs: No Vision needs: No Review of Systems Const All systems reviewed & are unremarkable except as noted in HPI and below Reports no additional complaints ENT Reports Normal hearing present Card Denies chest pain, Denies chest pain at rest, Denies chest pain with activity and Denies pedal edema Resp Denies cough GI Denies abdominal pain Musc Denies abnormal gait, Denies muscle cramps and Denies radiating pain into limb Skin/Breast Denies skin ulcer and Denies wounds Neuro Reports Normal hearing present and Denies abnormal gait Psych Reports no additional complaints Physical Exam Const General: cooperative, healthy appearing and comfortable Orientation/consciousness: oriented to person, oriented to place and oriented to time HEENT Head: Yes normal to inspection Neck Neck: Yes normal visual inspection Carotids: no bruits Chest Chest palpation & inspection: normal inspection of the chest Resp Effort & Inspection: normal respiratory effort and able to speak in complete sentences Auscultation: clear to auscultation bilaterally, no crackles, no rales, no rhonchi and no wheezes Cardio Rate: regular rate Rhythm: regular rhythm Heart sounds: S1 normal heart sound present and S2 normal heart sound present Bruits: no carotid bruits Peripheral pulses: Peripheral pulses 2+ throughout GI Inspection: Yes normal to inspection Skin Other: Amp site wound measuring 1.5 x 1.8 x 0.3 cm Wounds: amputation site Hair: normal Neuro General: oriented to person, oriented to place and oriented to time Cranial nerves: Yes CN's II-XII intact bilaterally and Yes Normal hearing present Cognition (Neuro): normal cognition Motor exam (neuro): 5/5 motor strength present throughout Extrem Other: venous exam: No significant superficial varicosities or spider telangiectasias, minimal edema General: No clubbing, No cyanosis and No edema Psych Appearance: grossly normal Mental Status: mental status grossly normal Speech and movement: Normal speech and movement present Assessment & Plan Assessment & Plan (1) PAD (peripheral artery disease): Comment: 03/26/2025 - diagnostic angiogram 03/29/2025 - right 2nd toe amputation Code(s): I73.9 - Peripheral vascular disease, unspecified Category: Medical Plan: During the visit, I discussed with the patient the importance of keeping the wound clean and covered to prevent infection. I recommended using gauze and foam for dressing and advised a follow-up visit in two weeks to monitor healing. Plan Patient was informed and verbally consented to the use of an ambient scribe for clinic note documentation during this visit. Patient Instructions: - Keep the wound clean and covered at all times. - Use gauze and foam to dress the wound daily. - Return for a follow-up visit in two weeks. Coding Level of Care Code Est Pt Level 3 (79729) Diagnoses PAD (peripheral artery disease) I73.9
== END 2025-04-26 11:28 | disposition home or self-care (01) ==
LOC: HO.HVS 10:44
PROVIDERS: PCP Family Medicine; Visit Provider Surgery Vascular Surgery
DX: I73.9 Peripheral vascular disease, unspecified (principal); Z89.421 Acquired absence of other right toe(s)
CPT/HCPCS: 99024

== ENCOUNTER → 2025-04-26 10:43 | Outpatient (BNVA) | payer OTHER, SELFPAY | PROVIDERS: PCP Family Medicine; Visit Provider Surgery Vascular Surgery | DX: I73.9 Peripheral vascular disease, unspecified (principal) | CPT/HCPCS: 99212 ==

== ENCOUNTER 2025-05-10 10:46 | Outpatient (AMB) | payer OTHER, SELFPAY ==
--- NOTE | 2025-05-10 10:51 | MHC.OFFVIS ---
Intake Visit Reasons: 2 week wound check Intake Note: 2 week follow up right foot 2nd toe amp non-healing. Pt states he changes dressing twice per day due to drainage. Plant Maintenance Manager Required: No Accompanied by: Self / Same As Patient Allergies No Known Allergies Allergy (Verified 05/10/25 10:54) HPI HPI 2 week wound check: Details: The patient is a 64-year-old male presenting for a two-week postoperative wound check following a toe amputation. The patient underwent a toe amputation on March 29 and has been managing the wound by changing the dressing twice daily. He completed a course of antibiotics immediately after the surgery but has not been on any since then. The patient reports that the wound is not healing as expected, and there is a noticeable odor. He has been advised against using alcohol on the wound to prevent drying and burning. The patient has been diligent in covering the wound and has had a visiting nurse, although there were changes in the nursing service. [facility] Medical History PAD (peripheral artery disease) Diabetic ulcer of right foot Diabetes Osteomyelitis of second toe of right foot Back pain Smoker Insomnia Amputated toe of left foot Anemia Low testosterone Hyperlipidemia Hypertension Carotid atherosclerosis Erectile dysfunction associated with type 2 diabetes mellitus Lumbar degenerative disc disease Gall bladder disease Finding of floating rib Spine disorder Pacemaker Stroke Diabetes 1.5, managed as type 2 Surgical History History of surgery History of surgery History of appendectomy Social History Household Members: Other Household Members Other:: roomate Both parents involved: No Caregiver staying overnight: No Housing: House Are you a primary child care supervisor to a significant other at home: No Do you presently have visiting nurse or other home services: No 75 years or older and lives alone: No Alcohol intake: current Alcohol intake frequency: does not drink Alcohol type: other Comment: single malt scotch Patient Tobacco Use Status: Current everyday Tobacco user Tobacco use type: Cigarette Cigarette Packs Per Day: 0.75 Cigarettes Per Day: 15 Years Smoked: 45 e-Cigarette/Vaping Use: Never Used Second Hand Smoke Exposure: No Substance Use Type: Marijuana Special yamilex needs: No service: No Current occupational status: retired Cognitive needs: No Hearing needs: No Vision needs: No Review of Systems Const All systems reviewed & are unremarkable except as noted in HPI and below Reports no additional complaints ENT Reports Normal hearing present Card Denies chest pain, Denies chest pain at rest, Denies chest pain with activity and Denies pedal edema Resp Denies cough GI Denies abdominal pain Musc Denies abnormal gait, Denies muscle cramps and Denies radiating pain into limb Skin/Breast Denies skin ulcer and Denies wounds Neuro Reports Normal hearing present and Denies abnormal gait Psych Reports no additional complaints Physical Exam Const General: cooperative, healthy appearing and comfortable Orientation/consciousness: oriented to person, oriented to place and oriented to time HEENT Head: Yes normal to inspection Neck Neck: Yes normal visual inspection Carotids: no bruits Chest Chest palpation & inspection: normal inspection of the chest Resp Effort & Inspection: normal respiratory effort and able to speak in complete sentences Auscultation: clear to auscultation bilaterally, no crackles, no rales, no rhonchi and no wheezes Cardio Rate: regular rate Rhythm: regular rhythm Heart sounds: S1 normal heart sound present and S2 normal heart sound present Bruits: no carotid bruits Peripheral pulses: Peripheral pulses 2+ throughout GI Inspection: Yes normal to inspection Skin Other: Amp wound site poor granulation bed. Overall wound measures 1.5 x 1.5 x 0.8 cm. Mild erythema surrounding Wounds: no wounds Hair: normal Neuro General: oriented to person, oriented to place and oriented to time Cranial nerves: Yes CN's II-XII intact bilaterally and Yes Normal hearing present Cognition (Neuro): normal cognition Motor exam (neuro): 5/5 motor strength present throughout Extrem Other: venous exam: No significant superficial varicosities or spider telangiectasias, minimal edema General: No clubbing, No cyanosis and No edema Psych Appearance: grossly normal Mental Status: mental status grossly normal Speech and movement: Normal speech and movement present Assessment & Plan Assessment & Plan (1) PAD (peripheral artery disease): Comment: 03/26/2025 - diagnostic angiogram 03/29/2025 - right 2nd toe amputation Code(s): I73.9 - Peripheral vascular disease, unspecified Category: Medical Plan: In short patient is stable status post right toe amp. It appears to be doing about the same no significant improvement in overall wound. Continue with local wound care. I have taken the liberty of ordering an antibiotic as there is some mild surrounding cellulitis. He will follow up with us in approximately 2 weeks time. Thank you for allowing us to assist in his care. If there are any questions or concerns please do not hesitate to contact us. Plan Patient was informed and verbally consented to the use of an ambient scribe for clinic note documentation during this visit. Medications: New cephalexin 500 mg PO BID 20 caps 0RF Patient Instructions: - Continue changing the wound dressing twice daily. - Avoid using alcohol on the wound to prevent drying and irritation. - Take the prescribed antibiotics as directed. - Schedule a follow-up appointment two weeks after returning from [place]. Coding Level of Care Code Est Pt Level 3 (24945) Diagnoses PAD (peripheral artery disease) I73.9
--- OUTSIDE RECORDS SUMMARY | 2025-05-10 13:18 | XMS_ITS | Continuity of Care Document ---
Author Organization [facility] [address] [facility] [address] [place] [address] Phone [phone] Problems Active Problems Provider Date Type 2 [...] SIG Qnty Indications Order ing Provider Date Ewexwnbc7rd/0.5ML Solution Auto-Inject inject 5 mg subcutaneously once weekly 2ml Sarah Li NP 11/15/2024 Pen Udsiiab76N X 4 mm Misc use one needle with insulin tacos, use three times a day 100units Mona Muhammad M.D. 08/16/2024 Freestyle Dori 2/[place]/Flash Glucose Monitoring Jababq8Vicaec Device use as directed with sensors 1units E11.9 Mona Muhammad M.D. 09/20/2023 Freestyle Dori 2/Sensor/Flash Glucose Monitoring Yubhbb1Ljlamb Misc 1 sensor to skin every fourteen days as directed dx: e11.9 3units E11.9 Mona Muhammad M.D. 09/20/2023 Ztlido1.8% Patches 1 patch daily Unknown Aspirin 8181mg Tablets DR 1 by mouth every day Unknown 00/00/0 000 Ketoconazole2% Cream Unknown Accu-Chek GuideStrips Unknown Okvomif21yr Tablets Take 1 tablet by mouth daily 90tabs Mona Muhammad M.D. Tresiba Duyajtyoa289Gbwg/ML Solution Pen-Inject Administer 30 Units Under The Skin Daily 30units E11.21 Mona Muhammad M.D. Otxhutitde21ad Capsules DR Take 1 capsule by mouth daily 90caps Mona Muhammad M.D. Metformin DTH2924sc Tablets Take 1 Tablet By Mouth Twice Daily 180tabs Sarah Li [employer] Accu-Chek GuideStrips Unknown Rosuvastatin Loqhbge91er Tablets Take 1 tablet by mouth daily Unknown Losartan Fwvrpsaqb05vo Tablets Take 1 tablet by mouth daily Unknown Trazodone XOF518ah Tablets Take 1 tablet by mouth at [...] 67 mg/dL Low 70-99 BUN 21 mg/dL 8- Creatinine 1.02 mg/dL 0.76-1.27 eGFR 82 mL/min/1.7 [...] 09/17/2023 Inhouse Hemoglobin A1c 8.2% 1 Test(s) 106634-Fbxtp terone was developed and its performance characteristics determined by [facility]. It has not been cleared or approved by the Food and Drug Administration. Test(s) 116299-Lbqnm Activity, Plasma was developed and its performance characteristics determined by [facility]. It has not been cleared or approved by the Food and Drug Administration. 2 Normal: 0 - 29 Moderately increased: 30 - 300 Severely increased: >300 Procedures Date Code Description Status 12/29/2023 46575 Glucose Monitoring Interpeta tion And Report Completed Medical Devices Description No Information Available Encounters Type Date Location Provider Dx Diagnosis Office Visit 03/19/2025 1:00p Main Office Sarah Li NP E11.9 Type 2 diabetes mellitus without complications I10 Essential (primary) hypertension E78.5 Hyperlipidemia, unsp ecified Assessments Date Code Description Provider 03/19/2025 E11.9 Type 2 diabetes mellitus wit hout complications Sarha Li NP 03/19/2025 I10 Essential (primary) hyperten [...] Reason for Referral Status Appt Oleg Lisa Zuniga, [facility] Closed [address] [place] [address] [phone]
--- OUTSIDE RECORDS SUMMARY | 2025-05-10 13:18 | XMS_ITS | Patient Health Record ---
Author Organization [facility] Address [address] [place] [address] Care Team Providers Care Insurance Claims Specialist Name Role Phone José Frazier MD Primary Care Provider Luis Pan Unavailable [phone] Allergies No Known Allergies Reason For Referral No Information Medications Medication SIG (Take, Route, Frequency, Duration) Notes Start Date End Date Status Omeprazole 40 MG 1 capsule 30 minutes before morning meal Orally Once a day; Duration: 90 days Active Tresiba FlexTouch 100 UNIT/ML inject 30 units Subcutaneous daily; Duration: 100 days Active Pen [place] 32G X 6 MM use with insulin [...] Status W/U Status Risk Notes Problem Hypercalcemia (07475908) Hypercalcemia (E83.52) Active confirmed Problem 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 mellitus (474127185) Type 2 diabetes mellitus with other diabetic neurological complication (E11.49) Active confirmed Problem Vitamin D deficiency (20337187) Vitamin D deficiency (E55.9) Active confirmed Problem Dyslipidemia (662849851) Dyslipidemia (E78.5) Active confirmed Problem Hyperglycemia due to type 2 diabetes mellitus (302643342684443) Type 2 diabetes mellitus with hyperglycemia (E11.65) Active confirmed Problem Essential hypertension (11019144) Essential (primary) hypertension (I10) Active confirmed Problem Disorder of calcium metabolism (25370906) 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 Problem Abnormal result, function study of peripheral nervous system / special senses (862155879) Abnormal results of function studies of other [...] Coverage Start Date Coverage End Date [facility] DUAL COMPLETE PPO QMB [address] [address] [place] [address] [id number] QMB Florentin Ni Self - patient is the insured Medical (General) History Medical History History ICD Code Diabetes HTN Hyperlipidemia GERD Surgical History Surgery Date(Month/Year) Screws right ankle Toe amputation left foot Appendectomy 06/2020 Hospitalization History Reason Date(Month/Year) Appendectomy 06/2020
--- OUTSIDE RECORDS SUMMARY | 2025-05-10 13:18 | XMS_ITS | Patient Health Record ---
Author Organization [facility] Address [address] [facility] [address] [place] [address] Care Team Providers Care Dust Collector Ore Crushing Name Role Phone José Frazier Primary Care Provider Unavailab Hernadez JAYLA Unavailable [phone] Allergies No Known Allergies Reason For Referral [...] 1MG PER DOSE (1X4MG PEN) *Reorder from [employer] for eRx and Interaction Alerts* Unknown ZTlido [...] W/U Status Risk Notes Problem Lumbar radiculopathy (997331057) Lumbar radiculopathy (M54.16) Active confirmed Problem Lumbosacral spondylosis without myelopathy (06071010) Other spondylosis, lumbar region (M47.896) Active confirmed Problem Lumbosacral spondylosis without myelopathy (09504453) Other spondylosis, lumbosacral region (M47.897) Active confirmed Problem Spinal stenosis of lumbar region (81366307) Spinal stenosis, lumbosacral region (M48.07) Active confirmed Problem Disorder of lumbar disc (244765736) Other intervertebral disc disorders, lumbar region (M51.86) Active confirmed Problem Disorder of lumbosacral intervertebral disc (710160108) Other intervertebral disc disorders, lumbosacral region (M51.87) Active confirmed Problem Spasm of back muscles (092892397) Muscle spasm of back (M62.830) Active confirmed Problem Spasm (77684983) Other muscle spasm (M62.838) Active confirmed Problem Muscle pain (85885859) Myalgia, other site (M79.18) Active confirmed Problem Low back pain (116570762) Low back pain, unspecified (M54.50) Active confirmed Problem Lumbosacral spondylosis without myelopathy (53252403) Spondylosis w/o myelopathy or radiculopathy, lumbar region (M47.816) Active confirmed Problem Lumbosacral spondylosis without myelopathy (66831424) Spondyls w/o myelopathy or radiculopathy, lumbosacr region (M47.817) Active confirmed Plan Of Treatment Pending Test Test Name Order Date 57223 Lumbar/Caudal WILFRID 05/04/2022 Future Test Test Name Order Date 92521 Lumbar/Caudal WILFRID 08/05/2022 Insurance Providers Payer Name Payer Address Payer Phone Subscriber Number Group Number Insured Name Patient Relationship to Insured Coverage Start Date Coverage End Date [facility] DUAL COMP MDCR HMO [address] [address] [place] [address] [id number] Florentin Begum Self - patient is the insured 3 LAB -[facility] [place] [address] [address] [place], [place] [id number] Florentin Ni Self - patient is the insured 3 Medical (General) History Medical History History ICD Code diabetes stroke Surgical History Surgery Date(Month/Year) Appendectomy
== END 2025-05-10 11:28 | disposition home or self-care (01) ==
LOC: HO.HVS 10:47
PROVIDERS: PCP Family Medicine; Visit Provider Surgery Vascular Surgery
DX: I73.9 Peripheral vascular disease, unspecified (principal)
CPT/HCPCS: 99024

== ENCOUNTER → 2025-05-10 10:46 | Outpatient (BNVA) | payer OTHER, SELFPAY | PROVIDERS: PCP Family Medicine; Visit Provider Surgery Vascular Surgery | DX: Z47.81 Encounter for orthopedic aftercare following surgical amputation (principal); E11.628 Type 2 diabetes mellitus with other skin complications; T81.89XD Other complications of procedures, not elsewhere classified, subsequent encounter; E11.51 Type 2 diabetes mellitus with diabetic peripheral angiopathy without gangrene; L03.031 Cellulitis of right toe; L53.9 Erythematous condition, unspecified; Z79.2 Long term (current) use of antibiotics; Z89.421 Acquired absence of other right toe(s) | CPT/HCPCS: 99212 ==

== ENCOUNTER 2025-05-24 10:45 | Outpatient (AMB) | payer OTHER, SELFPAY ==
--- NOTE | 2025-05-24 10:54 | MHC.OFFVIS ---
Intake Visit Reasons: 2 week follow up wound check Intake Note: Patient presents for follow up s/p toe amputation. Patient has no complaints. Accompanied by: Self / Same As Patient Allergies No Known Allergies Allergy (Verified 05/24/25 10:56) HPI HPI 2 week follow up wound check: Details: The patient is a 73-year-old female presenting with lower extremity swelling. The swelling has been present for approximately 25 years on one side and has recently started affecting the other side, extending to the knees. The patient reports that the swelling does not cause pain but is associated with a sensation of pressure, particularly when climbing stairs or entering a bathtub. The patient has a history of diabetes mellitus, which does not currently cause pain during ambulation, except when ascending stairs, where pressure is felt in the knees. Previous evaluations included an MRI, which was conducted at [facility], but the patient did not receive satisfactory follow-up or trust in the previous provider's assessment. The patient denies current smoking but has a history of smoking cessation. 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 Back pain Smoker Insomnia Amputated toe of left foot Anemia Low testosterone Hyperlipidemia Hypertension Carotid atherosclerosis Erectile dysfunction associated with type 2 diabetes mellitus Lumbar degenerative disc disease Gall bladder disease Finding of floating rib Spine disorder Pacemaker Stroke Diabetes 1.5, managed as type 2 Surgical History History of surgery History of surgery History of appendectomy Social History Household Members: Other Household Members Other:: roomate Both parents involved: No Caregiver staying overnight: No Housing: House Are you a primary residential child care counselor to a significant other at home: No Do you presently have visiting nurse or other home services: No 75 years or older and lives alone: No Alcohol intake: current Alcohol intake frequency: does not drink Alcohol type: other Comment: single shaun angelo Patient Tobacco Use Status: Current everyday Tobacco user Tobacco use type: Cigarette Cigarette Packs Per Day: 0.75 Cigarettes Per Day: 15 Years Smoked: 45 e-Cigarette/Vaping Use: Never Used Second Hand Smoke Exposure: No Substance Use Type: Marijuana Special yamilex needs: No service: No Current occupational status: retired Cognitive needs: No Hearing needs: No Vision needs: No Review of Systems Const All systems reviewed & are unremarkable except as noted in HPI and below Reports no additional complaints ENT Reports Normal hearing present Card Denies chest pain, Denies chest pain at rest, Denies chest pain with activity and Denies pedal edema Resp Denies cough GI Denies abdominal pain Musc Denies abnormal gait, Denies muscle cramps and Denies radiating pain into limb Skin/Breast Denies skin ulcer and Denies wounds Neuro Reports Normal hearing present and Denies abnormal gait Psych Reports no additional complaints Physical Exam Const General: cooperative, healthy appearing and comfortable Orientation/consciousness: oriented to person, oriented to place and oriented to time HEENT Head: Yes normal to inspection Neck Neck: Yes normal visual inspection Carotids: no bruits Chest Chest palpation & inspection: normal inspection of the chest Resp Effort & Inspection: normal respiratory effort and able to speak in complete sentences Auscultation: clear to auscultation bilaterally, no crackles, no rales, no rhonchi and no wheezes Cardio Rate: regular rate Rhythm: regular rhythm Heart sounds: S1 normal heart sound present and S2 normal heart sound present Bruits: no carotid bruits Peripheral pulses: Peripheral pulses 2+ throughout GI Inspection: Yes normal to inspection Skin Other: Right foot amp site measuring 0.7 cm in diameter with 1.5 cm deep wound. Concern here is it does probe down to bone Wounds: no wounds Hair: normal Neuro General: oriented to person, oriented to place and oriented to time Cranial nerves: Yes CN's II-XII intact bilaterally and Yes Normal hearing present Cognition (Neuro): normal cognition Motor exam (neuro): 5/5 motor strength present throughout Extrem Other: venous exam: No significant superficial varicosities or spider telangiectasias, minimal edema General: No clubbing, No cyanosis and No edema Psych Appearance: grossly normal Mental Status: mental status grossly normal Speech and movement: Normal speech and movement present Assessment & Plan Assessment & Plan (1) PAD (peripheral artery disease): Comment: 03/26/2025 - diagnostic angiogram 03/29/2025 - right 2nd toe amputation Code(s): I73.9 - Peripheral vascular disease, unspecified Category: Medical Plan: In short appears to be doing well status post toe amp. We will plan to continue with local wound care and packing. He has been much more vigilant about his dressing changes. We will see us in a proximally 3 weeks time. Thank you for allowing us to assist in his care. Coding Level of Care Code Est Pt Level 4 (16225) Diagnoses PAD (peripheral artery disease) I73.9
--- OUTSIDE RECORDS SUMMARY | 2025-05-24 13:14 | XMS_ITS | Continuity of Care Document ---
Author Organization [facility] [address] [facility] [address] [place] [address] Phone [phone] Problems Active Problems Provider Date Type 2 [...] SIG Qnty Indications Order ing Provider Date Girqdwdi0dy/0.5ML Solution Auto-Inject inject 5 mg subcutaneously once weekly 2ml Sarah Li NP 11/15/2024 Pen Zrjsbmv92J X 4 mm Misc use one needle with insulin tacos, use three times a day 100units Mona Muhammad M.D. 08/16/2024 Freestyle Dori 2/[place]/Flash Glucose Monitoring Ddsjsu7Mfutnu Device use as directed with sensors 1units E11.9 Mona Muhammad M.D. 09/20/2023 Freestyle Dori 2/Sensor/Flash Glucose Monitoring Atkele0Dbovbl Misc 1 sensor to skin every fourteen days as directed dx: e11.9 3units E11.9 Mona Muhammad M.D. 09/20/2023 Ztlido1.8% Patches 1 patch daily Unknown Aspirin 8181mg Tablets DR 1 by mouth every day Unknown 00/00/0 000 Ketoconazole2% Cream Unknown Accu-Chek GuideStrips Unknown Apyimry31qq Tablets Take 1 tablet by mouth daily 90tabs Mona Muhammad M.D. Tresiba Klcnghxht375Loif/ML Solution Pen-Inject Administer 30 Units Under The Skin Daily 30units E11.21 Mona Muhammad M.D. Eblxgoqibt19wf Capsules DR Take 1 capsule by mouth daily 90caps Mona Muhammad M.D. Metformin JFG5368iq Tablets Take 1 Tablet By Mouth Twice Daily 180tabs Sarah Li NEUROSCIENCE DIRECTOR NA Accu-Chek GuideStrips Unknown Rosuvastatin Suzxusj16np Tablets Take 1 tablet by mouth daily Unknown Losartan Zhfoozeyw92xw Tablets Take 1 tablet by mouth daily Unknown Trazodone KBM242in Tablets Take 1 tablet by mouth at [...] 09/17/2023 Inhouse Hemoglobin A1c 8.2% 1 Test(s) 603567-Ourki terone was developed and its performance characteristics determined by [facility]. It has not been cleared or approved by the Food and Drug Administration. Test(s) 222919-Nvjgc Activity, Plasma was developed and its performance characteristics determined by [facility]. It has not been cleared or approved by the Food and Drug Administration. 2 Normal: 0 - 29 Moderately increased: 30 - 300 Severely increased: >300 Procedures Date Code Description Status 12/29/2023 30291 Glucose Monitoring Interpeta tion And Report Completed [...] Zuniga, [facility] Closed [address] [place] [address] [phone]
--- OUTSIDE RECORDS SUMMARY | 2025-05-24 13:14 | XMS_ITS | Patient Health Record ---
Author Organization [facility] Address [address] [facility] [address] [place] [address] Care Team Providers Care Jigger Artisan Name Role Phone José Frazier Primary Care Provider Unavailab Hernadez JAYLA Unavailable [phone] Allergies No Known Allergies Reason For Referral [...] 1MG PER DOSE (1X4MG PEN) *Reorder from [employer] for eRx and Interaction Alerts* Unknown ZTlido [...] W/U Status Risk Notes Problem Lumbar radiculopathy (430603407) Lumbar radiculopathy (M54.16) Active confirmed Problem Lumbosacral spondylosis without myelopathy (15841572) Other spondylosis, lumbar region (M47.896) Active confirmed Problem Lumbosacral spondylosis without myelopathy (20993795) Other spondylosis, lumbosacral region (M47.897) Active confirmed Problem Spinal stenosis of lumbar region (34562650) Spinal stenosis, lumbosacral region (M48.07) Active confirmed Problem Disorder of lumbar disc (040949104) Other intervertebral disc disorders, lumbar region (M51.86) Active confirmed Problem Disorder of lumbosacral intervertebral disc (709026376) Other intervertebral disc disorders, lumbosacral region (M51.87) Active confirmed Problem Spasm of back muscles (683611619) Muscle spasm of back (M62.830) Active confirmed Problem Spasm (67252771) Other muscle spasm (M62.838) Active confirmed Problem Muscle pain (28548122) Myalgia, other site (M79.18) Active confirmed Problem Low back pain (134879088) Low back pain, unspecified (M54.50) Active confirmed Problem Lumbosacral spondylosis without myelopathy (48949795) Spondylosis w/o myelopathy or radiculopathy, lumbar region (M47.816) Active confirmed Problem Lumbosacral spondylosis without myelopathy (87095337) Spondyls w/o myelopathy or radiculopathy, lumbosacr region (M47.817) Active confirmed Plan Of Treatment Pending Test Test Name Order Date 69055 Lumbar/Caudal WILFRID 05/04/2022 Future Test Test Name Order Date 79942 Lumbar/Caudal WILFRID 08/05/2022 Insurance Providers Payer Name Payer Address Payer Phone Subscriber Number Group Number Insured Name Patient Relationship to Insured Coverage Start Date Coverage End Date [facility] DUAL COMP MDCR HMO [address] [address] [place] [address] [id number] Florentin Begum Self - patient is the insured 3 LAB -[facility] [place] [address] [address] [place], [place] [id number] Florentin Ni Self - patient is the insured 3 Medical (General) History Medical History History ICD Code diabetes stroke Surgical History Surgery Date(Month/Year) Appendectomy
--- OUTSIDE RECORDS SUMMARY | 2025-05-24 13:14 | XMS_ITS | Patient Health Record ---
Author Organization [facility] Address [address] [place] [address] Care Team Providers Care Cell Pourer Name Role Phone José Frazier MD Primary Care Provider Luis Pan Unavailable [phone] Allergies No Known Allergies Reason For Referral No Information Medications Medication SIG (Take, Route, Frequency, Duration) Notes Start Date End Date Status Omeprazole 40 MG 1 capsule 30 minutes before morning meal Orally Once a day; Duration: 90 days Active Tresiba FlexTouch 100 UNIT/ML inject 30 units Subcutaneous daily; Duration: 100 days Active Pen [place] 32G X 6 MM use with insulin [...] Status W/U Status Risk Notes Problem Hypercalcemia (53189613) Hypercalcemia (E83.52) Active confirmed Problem 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 mellitus (689188964) Type 2 diabetes mellitus with other diabetic neurological complication (E11.49) Active confirmed Problem Vitamin D deficiency (39807042) Vitamin D deficiency (E55.9) Active confirmed Problem Dyslipidemia (629826129) Dyslipidemia (E78.5) Active confirmed Problem Hyperglycemia due to type 2 diabetes mellitus (932926817001078) Type 2 diabetes mellitus with hyperglycemia (E11.65) Active confirmed Problem Essential hypertension (50790508) Essential (primary) hypertension (I10) Active confirmed Problem 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 Problem Abnormal result, function study of peripheral nervous system / special senses (813341342) Abnormal results of function studies of other [...] Insured Coverage Start Date Coverage End Date [facility] DUAL COMPLETE PPO QMB [address] [address] [place] [address] [id number] QMB Florentin Ni Self - patient is the insured Medical (General) History Medical History History ICD Code Diabetes HTN Hyperlipidemia GERD Surgical History Surgery Date(Month/Year) Screws right ankle Toe amputation left foot Appendectomy 06/2020 Hospitalization History Reason Date(Month/Year) Appendectomy 06/2020
== END 2025-05-24 11:33 | disposition home or self-care (01) ==
LOC: HO.HVS 10:45
PROVIDERS: PCP Family Medicine; Visit Provider Surgery Vascular Surgery
DX: I73.9 Peripheral vascular disease, unspecified (principal)
CPT/HCPCS: 99024

== ENCOUNTER → 2025-05-24 10:45 | Outpatient (BNVA) | payer OTHER, SELFPAY | PROVIDERS: PCP Family Medicine; Visit Provider Surgery Vascular Surgery | DX: I73.9 Peripheral vascular disease, unspecified (principal); Z48.01 Encounter for change or removal of surgical wound dressing; Z89.421 Acquired absence of other right toe(s); Z72.0 Tobacco use | CPT/HCPCS: 99212 ==

== ENCOUNTER 2025-06-04 10:51 | Inpatient (IN) | payer OTHER, SELFPAY ==
--- NOTE | ~2025-06-04 | US_ITS ---
EXAMINATION: US TRIPLEX LOWER EXTREMITY, RIGHT CLINICAL INFORMATION: Right lower extremity edema COMPARISON: None available. TECHNIQUE: Color-flow triplex imaging with spectral analysis and compression Doppler were performed on the right lower extremity. FINDINGS: Respiratory variation, normal compression and augmented flow are noted throughout the right lower extremity. The visualized common femoral vein, superficial femoral vein, profunda femoral vein, popliteal vein and midcalf peroneal and posterior tibial venous segments show no evidence of acute deep venous thrombosis. Multifocal coarse linear echogenic regions are present in the posterior wall of the right femoral vein in the mid thigh, distal thigh, and popliteal vein. US/US venous duplex LE RT IMPRESSION: No evidence of acute deep venous thrombosis involving the right lower extremity. Multifocal coarse linear echogenic regions in the deep wall of the right femoral vein in the mid and distal thigh, and popliteal vein are most consistent with chronic changes from remote DVT. Electronically signed by: Marcus Sidhu MD 06/04/2025 12:30 PM ALICE
--- NOTE | ~2025-06-04 | XR_ITS ---
EXAMINATION: XR ANKLE, right CLINICAL INFORMATION: ?foot infection COMPARISON: None available. TECHNIQUE: AP, lateral, and mortise views lower extremity joint, ankle. FINDINGS: Ankle mortise is congruent. There is no widening of the syndesmosis. There is a bony exostosis in the between the distal tibial metaphysis and fibular metaphysis projecting into the interosseous space likely from a remote trauma. There is a screw placed into the medial malleolus from the inferior end of the medial malleolus. There is no abnormal lucency around the screw and screws intact without migration. Talar dome is intact. There are no calcaneal enthesophyte(s). Moderate vascular calcifications are evident. No definite erosions are identified. XR/XR ankle RT min 3V IMPRESSION: Chronic changes with medial malleolar ORIF. No acute abnormality. Electronically signed by: Marcus Sidhu MD 06/04/2025 11:48 AM EST
--- NOTE | ~2025-06-04 | XR_ITS ---
EXAMINATION: XR FOOT, RIGHT CLINICAL INFORMATION: ?foot infection COMPARISON: 03/22/2025 TECHNIQUE: AP, lateral, and oblique views of the right foot. FINDINGS: Since prior study, there has been amputation of the second digit at the MTP joint. There is increased osteopenia in the second metatarsal head and interval loss of the cortical white line along the lateral second metatarsal head. There are no other areas raise concern for erosions. Again seen are severe degenerative changes in the first ray. There is moderate and severe vascular calcifications. XR/XR foot RT min 3V IMPRESSION: Interval amputation of the second digit of the right foot at the MTP joint. There is interval increase osteopenia in the second metatarsal head and loss of cortical white line at the lateral margin of the second metatarsal head raising question of osteomyelitis. Otherwise, stable exam. Electronically signed by: Marcus Sidhu MD 06/04/2025 11:52 AM EST
--- NOTE | ~2025-06-04 | US_ITS ---
EXAMINATION: US NONINVASIVE ASSESSMENT OF THE right LOWER EXTREMITY WITH ARTERIAL DUPLEX AND ANKLE BRACHIAL INDICES (ABIS) CLINICAL INFORMATION: Nonhealing ulcer COMPARISON: Previous exam March 2025 TECHNIQUE: Duplex Doppler techniques with waveform analysis and measurement of velocities in the common femoral, profunda femoris, superficial femoral, popliteal and tibial arteries were performed. The study was performed only at rest. FINDINGS: RIGHT LOWER EXTREMITY DUPLEX ULTRASOUND: Diffuse atherosclerotic disease with vessel wall calcification. Visible narrowing of the proximal profunda and distal superficial femoral artery. Arrhythmia noted. Common femoral artery: 94 cm/s. Diastolic flow reversal: Triphasic Profunda femoris artery: 133 cm/s. Diastolic flow reversal: Monophasic Superficial femoral artery (proximal): 112 cm/s. Diastolic flow reversal: Monophasic Superficial femoral artery (mid): 100 cm/s. Diastolic flow reversal: Triphasic Superficial femoral artery (distal): 163 cm/s. Diastolic flow reversal: Monophasic Popliteal artery: 114 cm/s Diastolic flow reversal: Monophasic Posterior tibial artery: 91 cm/s Diastolic flow reversal: Monophasic Right inguinal lymph nodes, largest measuring 1.7 x 0.9 1.5 cm. US/US arterial duplex LE RT IMPRESSION: Mild/moderate atherosclerotic disease with visible narrowing of the proximal profunda and distal SFA and monophasic flow. Electronically signed by: Gabriella Da Silva MD 06/05/2025 11:23 AM EST
--- NOTE | 2025-06-04 10:57 | ED_ITS ---
HPI - General Adult General Chief complaint: Extremity Problem Stated complaint: amputated site infection, foot swelling Time Seen by Provider: 06/04/25 12:16 Source: patient Mode of arrival: ambulatory Limitations: no limitations History of Present Illness ED Provider: Dr. Powers HPI narrative: This is a 64-year-old male history of peripheral artery disease, amputation of the right 2nd metatarsal head back in 03/29/2025, diabetes, hyperlipidemia, pacemaker implantation presented hospital today for evaluation of swelling and redness of the right foot. Patient stated that he has been receiving wound care however the redness and swelling has been worsening. He has been packing the wound himself. He does follow up with the vascular surgery clinic. Denies any fever. Patient is complaining of swelling of the right lower extremity. It is painful. Related Data Home Medications ?Medication ?Instructions ?Recorded ?Confirmed flash glucose sensor (FreeStyle 11/24/23 03/22/25 Dori 2 Sensor kit) pen needle, diabetic 32 gauge x 11/24/23 03/22/2507/17 (NovoFine Plus) metformin 1,000 mg tablet 1,000 mg PO BID 03/20/2407/05 tirzepatide 5 mg/0.5 mL 5 mg subcut PHILLIP 12/05/2403/12 subcutaneous pen injector (Curt) insulin degludec 100 unit/mL (3 See Rx Instructions .R oute .COMPLEX 03/07/25 03/23/25 mL) subcutaneous pen (Tresiba FlexTouch U-100 insulin) metoprolol succinate 25 mg 12.5 mg PO DAILY 03/22/25 0 03/23/25 tablet,extended release 24 hr glipizide 5 mg tablet, extended 5 mg PO DAILY 03/23/25 03/23/25 release 24 hr Previous Rx's ?Medication ?Instructions ?Recorded rosuvastatin 40 mg tablet 40 mg PO DAILY 90 days #90 t abs 09/18/24 tadalafil 5 mg tablet (Cialis) 5 mg PO DAILY sexual ac tivity 90 12/06/24 days #90 tabs dapagliflozin propanediol 10 mg 10 mg PO DAILY 90 days #90 tabs 12/20/24 tablet (Farxiga) sacubitril 24 mg-valsartan 26 mg 1 tab PO BID 90 days #180 tabs 12/20/24 tablet (Entresto) blood pressure monitor #1 ea 01/23/25 clotrimazole 1 % topical cream 1 appl topical BID 4 we eks #45 03/07/25 grams amoxicillin 875 mg-potassium 1 tab PO BID #14 tabs clavulanate 125 mg tablet oxycodone 15 mg tablet 15 mg PO Q6H PRN pain #20 ta bs 03/30/25 omeprazole 40 mg capsule,delayed 40 mg PO DAILY@0630 3 0 days #30 04/19/25 release caps trazodone 100 mg tablet 100 mg PO DAILY 30 days #30 tabs 04/24/25 cephalexin 500 mg capsule 500 mg PO BID #20 caps 05/10 semaglutide 3 mg tablet (Rybelsus) 3 mg PO DAILY 30 da ys #30 tabs 05/24/25 Allergies Allergy/AdvReac Type Severity Reaction Status Date / Time No Known Allergies Allergy Verified 06/04/25 10:58 Review of Systems 2 Review of Systems: Pertinent review of systems as mentioned in HPI. All other system otherwise negative. [facility] Past Medical History [facility] Narrative: Medical history as mentioned in HPI Medical History PAD (peripheral artery disease) Diabetic ulcer of right foot Diabetes Osteomyelitis of second toe of right foot Back pain Smoker Insomnia Amputated toe of left foot Anemia Low testosterone Hyperlipidemia Hypertension Carotid atherosclerosis Erectile dysfunction associated with type 2 diabetes mellitus Lumbar degenerative disc disease Gall bladder disease Finding of floating rib Spine disorder Pacemaker Stroke Diabetes 1.5, managed as type 2 Surgical History History of surgery History of surgery History of appendectomy Social History Social History Household Members: Other Household Members Other:: roomate Housing: House Are you a primary acute care nurse practitioner to a significant other at home: No Do you presently have visiting nurse or other home services: No Alcohol intake: current Alcohol intake frequency: does not drink Alcohol type: other Comment: single [facility] Patient Tobacco Use Status: Current everyday Tobacco user Tobacco use type: Cigarette Cigarette Packs Per Day: 0.75 Cigarettes Per Day: 15 Years Smoked: 45 e-Cigarette/Vaping Use: Never Used Second Hand Smoke Exposure: No Substance Use Type: Marijuana Special yamilex needs: No Advance Directives: No Advance Directives Information Provided: No service: No Current occupational status: retired Cognitive needs: No Hearing needs: No Vision needs: No Physical Exam ED Exam Exam: General: Pleasant, no distress, interacting appropriately Head: Normacephalic, atraumatic ENT: oral mucosa moist, neck supple, no tracheal deviation Cardiovascular: regular rate, regular rhythm, no murmurs, rubbing, gallops Respiratory: CTAB, no wheeze, rales, rhonchi Extremities: Redness of the right leg, he does have leg edema up to his knee. There is a wound over the 2nd toe area. No fluctuant mass palpated. Packing appears to be intact. Patient is placed the packing today. Neurological: Awake and alert, no facial droop noted Skin: Warm and dry Psychiatric: Appropriate mood and thoughts Vital Signs: Vital Signs - 24 hr 06/04/25 10:58 Temperature 97.5 F Pulse Rate 75 Respiratory Rate 22 H Blood Pressure 118/58 L Pulse Oximetry 95 Oxygen Delivery Method Room Air BMI result Body Mass Index 25.9 Course Course Course Narrative: This is an RME: Additional HPI, ROS, PE not included below will be deferred to primary provider. RME assessment and note performed by: Autumn Langston PA-C This is a [id number], with a hx of HTN, HLD, DM, chronic back pain, cardiac pacemaker, CVA, and amputation of right second toe by Dr. Blanca on 03/29, who presents to the ER with complaints of ?right foot infection. Pt saw Dr. Blanca 2 weeks ago, where he had the area cleansed, reports the next day he had worsening pain, redness. No fevers or chills. Blood glucose has been WNL. Plan: Labs, US, Xray, further ER eval needed. Medications Administered Generic Name Dose Route Start Last Admin Trade Name Freq PRN Reason Stop Dose Admin Vancomycin HCl 2,000 mg in 500 mls @ 250 mls/hr 06/04/25 12:22 06/04/25 12:44 Vancomycin/Ns IV 06/04/25 14:21 250 mls/hr ONCE ONE Administration Lactated Ringer's 1,000 mls @ 999 mls/hr 06/04/25 12:30 06/04/25 12:47 Lr IV 06/04/25 13:30 999 mls/hr .[id number] IRIS Administration Discontinued Medications Generic Name Dose Route Start Last Admin Trade Name Melchor PRN Reason Stop Dose Admin Oxycodone HCl 5 mg 06/04/25 12:40 06/04/25 12:53 Oxycodone Hcl Immed Release 5 Mg Tablet PO 06/04/25 12:41 5 mg ONCE ONE Administration Medical Decision Making Medical Decision Making [facility] Narrative: 64-year-old male history of right toe amputation PAD, diabetes presented hospital today for evaluation of right foot infection. Patient does have leukocytosis on laboratory work. The patient has white count of 13. Lactic acid is not elevated. However patient's respiratory rate was 22. He does not appear to be in respiratory distress. I do not think this is his current respiratory rate. However due to his findings and recorded vital signs. Sepsis alert was called. Vancomycin IV, IV Zosyn was given to the patient. The patient's ultrasound did not show any signs of acute DVT. However his x-ray of his right foot did show that his 2nd metatarsal head was suspicious for osteomyelitis. At this time we will plan to admit the patient in the hospital. Contacted Dr. Blanca Vascular surgeon to notify him of my plan to admit patient. Differential Diagnosis Differential Diagnoses: The differential diagnosis associated with the presentation includes Osteomyelitis, Sepsis, Cellulitis Lab Data [facility] Lab Attestation statement: I reviewed the patient's lab results. 06/04/25 11:16 06/04/25 11:16 Labs: Lab Results 06/04/25 Range/Units 11:16 WBC 13.0 H (4.8-10.8) X10*3/uL RBC 4.01 L (4.60-5.80) X10*6/uL Hgb 11.2 L (14.0-18.0) g/dl Hct 33.7 L (42.0-52.0) % MCV 84.0 (80.0-98.0) fL MCH 27.9 (27.0-33.0) pg MCHC 33.2 (31.0-36.0) g/dl RDW 15.4 (11.0-16.0) % Plt Count 442 H (160-400) X10*3/uL MPV 9.8 (9.4-12.4) fL Immature Gran % (Auto) 0.6 H (0.0-0.4) % Neut % (Auto) 72.8 (45-73) % Lymph % (Auto) 14.6 L (20-40) % [place] % (Auto) 10.5 (2-11) % Eos % (Auto) 0.9 (0-4) % Baso % (Auto) 0.6 (0-2) % Lymph # (Auto) 1.9 (1.2-4.9) X10*3/uL [place] # (Auto) 1.4 H (0.1-1.2) X10*3/uL Eos # (Auto) 0.1 (0.0-0.4) X10*3/uL Baso # (Auto) 0.1 (0.0-0.2) X10*3/uL Abs Immat Gran (auto) 0.08 H (0.00-0.03) X10*3/uL Absolute Neuts (auto) 9.5 H (2.0-8.3) x10*3/uL Absolute Nucleated RBC 0.000 (0.0-0.012) X10*3/uL Nucleated RBC % (auto) 0.0 (0.0-0.2) /100WBC ESR 54 H (0-15) MM/HR Sodium 132 L (135-145) mmol/L Potassium 5.5 H D (3.3-5.1) mmol/L Chloride 99 (96-108) mmol/L Carbon Dioxide 26 (22-29) mmol/L Anion Gap 13 (12-20) BUN 23 H (9-16) mg/dL Creatinine 1.50 H (0.5-1.4) mg/dL Estim Creat Clear Calc 48.4 Estimated GFR 47 Random Glucose 162 H (60-115) mg/dL Lactic Acid 1.9 (0.5-2.0) mmol/L Calcium 9.6 D (8.4-10.2) mg/dL Total Bilirubin 0.3 (0.0-1.0) mg/dL Direct Bilirubin 0.2 (0.0-0.5) mg/dL AST 26 (5-37) U/L ALT 28 (0-40) U/L Alkaline Phosphatase 64 (39-117) U/L C-Reactive Protein 7.01 H (< or = 0.50) mg/dL Total Protein 7.3 (6.5-8.0) g/dL Albumin 4.1 (3.5-5.0) g/dL Independent Interpretation I performed an independent interpretation of an: Plain X-Ray and Ultrasound Radiology Impression Discussion of test interpretation with radiology: I have reviewed the radiologist's reading. Chronic Conditions Patient?s care impacted by: Diabetes and Hypertension PAD Critical Care Time Critical Care Time Critical Care Time: Yes Total Critical Care Time: 40 Attestation: Time is exclusive of separately billable procedures. Time includes: direct patient care, patient reassessment, coordination of patient care, interpretation of data (laboratory data, pulse oximetry, arterial blood gases and chest xrays), review of patient's medical records, medical consultation and documentation of patient care. Procedures excluded from critical care time: central intravenous line placement and electrocardiography. Discharge Plan Discharge Clinical Impression: Sepsis, Osteomyelitis Patient Disposition: Admitted As Inpatient Print Language: Slovenian
[2025-06-04 10:58] VITALS: BP 118/58; PULSE 75; RESP 22; TEMP 36.4; O2SAT 95; BMI 25.9
[2025-06-04 11:22] LABS: MANUAL DIFF FLAG NO
[2025-06-04 11:23] LABS: Hematocrit 33.7 % (42.0-52.0); Hemoglobin 11.2 g/dl (14.0-18.0); Imm Gran Abs Auto 0.08 X10*3/uL (0.00-0.03); Imm Gran Pct Auto 0.6 % (0.0-0.4); Lymphocytes Absolute Auto 1.9 X10*3/uL (1.2-4.9); Mean Corpuscular HGB Conc 33.2 g/dl (31.0-36.0); Mean Corpuscular Hemoglobin 27.9 pg (27.0-33.0); Mean Corpuscular Volume 84.0 fL (80.0-98.0); NRBC Abs Auto 0.000 X10*3/uL (0.0-0.012); NRBC Pct Auto 0.0 /100WBC (0.0-0.2); Platelet Count 442 X10*3/uL (160-400); Red Blood Count 4.01 X10*6/uL (4.60-5.80); White Blood Count 13.0 X10*3/uL (4.8-10.8)
[2025-06-04 11:41] LABS: Alanine Aminotransferase 28 U/L (0-40); Albumin Level 4.1 g/dL (3.5-5.0); Alkaline Phosphatase 64 U/L (39-117); Anion Gap 13 (12-20); Aspartate Amino Transferase 26 U/L (5-37); Blood Urea Nitrogen 23 mg/dL (9-16); Calcium 9.6 mg/dL (8.4-10.2); Carbon Dioxide 26 mmol/L (22-29); Chloride 99 mmol/L (96-108); Creatinine Clr Calc Pharmacy 48.4; Estimated Glomerular Filt Rate 47; Potassium 5.5 mmol/L (3.3-5.1); Sodium 132 mmol/L (135-145); Total Protein 7.3 g/dL (6.5-8.0)
[2025-06-04 12:10] LABS: Erythrocyte Sedimentation Rate 54 MM/HR (0-15)
[2025-06-04] MEDS: vancomycin/NS 2,000 MG/500 ML PLAST..BAG 250 MG IV (12:44)
[2025-06-04] MEDS: Lactated Ringers 1,000 ML 999 ML IV (12:47)
[2025-06-04] MEDS: oxyCODONE HCl Immed Release 5 MG TABLET PO (12:53)
--- NOTE | 2025-06-04 13:39 | PM.IMHP ---
History of Present Illness Date of Service: 06/04/25 Chief Complaint: Foot wound 64-year-old man presented to the ER with complaints of swelling, redness and pain to his right foot. He has a history of right 2nd toe amputation site by vascular surgery. He has been doing wound care at home however he feels like the wound is getting worse. He denied fever, chills, nausea, vomiting, diarrhea. Foot x-ray showed interval increase osteopenia in the 2nd metatarsal head and loss of cortical white line at the lateral margin of the 2nd metatarsal head raising question for osteomyelitis. Patient was started on IV vancomycin in the ER. He will be admitted for further management treatment of likely osteomyelitis. Review of Systems Review of Systems: Denies any recent fever chills or decrease in appetite respiratory denies any shortness of breath or cough cardiovascular denied chest pain gastrointestinal denies any dysphagia abdominal pain nausea vomiting or diarrhea genitourinary denies any dysuria frequency or hematuria musculoskeletal denies any joint pain or swelling neuropsych denies any weakness or seizures all other systems reviewed are negative [facility] Medical History (Updated 06/04/25 @ 15:56 by Rupali Harper NP) Ischemic cardiomyopathy PAD (peripheral artery disease) Diabetic ulcer of right foot Diabetes Osteomyelitis of second toe of right foot Back pain Smoker Insomnia Amputated toe of left foot Anemia Low testosterone Hyperlipidemia Hypertension Carotid atherosclerosis Erectile dysfunction associated with type 2 diabetes mellitus Lumbar degenerative disc disease Gall bladder disease Finding of floating rib Spine disorder Pacemaker Stroke Diabetes 1.5, managed as type 2 Surgical History History of surgery History of surgery History of appendectomy Social History Household Members: Other Household Members Other:: roomate Housing: Apartment Are you a primary small animal caretaker to a significant other at home: No Do you presently have visiting nurse or other home services: No Alcohol intake: current Alcohol intake frequency: does not drink Alcohol type: other Comment: single [facility] Patient Tobacco Use Status: Current everyday Tobacco user Tobacco use type: Cigarette Cigarette Packs Per Day: 0.75 Cigarettes Per Day: 15.0 Years Smoked: 45 Smoked in Last 30 Days: Yes e-Cigarette/Vaping Use: Never Used Patient Interested in Nicotine Replacement: Yes Second Hand Smoke Exposure: No Use of substances other than those prescribed or required for medical reasons: No Substance Use Type: Marijuana Currently Displaying Signs/Symptoms of Drug Intoxication Withdrawal: No Special yamilex needs: No Advance Directives: No Advance Directives Information Provided: No Recently lost weight without trying: No Poor oral hygiene: No service: No Current occupational status: retired Cognitive needs: No Hearing needs: No Vision needs: No Meds Allergies Allergy/AdvReac Type Severity Reaction Status Date / Time No Known Allergies Allergy Verified 06/04/25 10:58 Active Medications: Current Medications Acetaminophen (Acetaminophen 325 Mg Tablet) 650 mg PO Q6H PRN PRN Reason: Pain, Mild 1-3,fever,headache Calcium Carbonate (Calcium Carbonate 750 Mg Tab.Chew) 750 mg PO Q4H PRN PRN Reason: Heartburn Heparin Sodium (Porcine) (Heparin Sodium,Porcine 5,000 Unit/Ml Vial) 5,000 unit SUBCUT Q12H IRIS Vancomycin HCl (Vancomycin/Ns) 2,000 mg in 500 mls @ 250 mls/hr IV ONCE ONE Stop: 06/04/25 14:21 Last Admin: 06/04/25 12:44 Dose: 250 mls/hr Vancomycin HCl 1,000 mg/ (Sodium Chloride) 270 mls @ 270 mls/hr IV Q12H IRIS Magnesium Hydroxide (Milk Of Magnesia 30 Ml Oral.Susp) 30 ml PO DAILY PRN PRN Reason: Constipation Melatonin (Melatonin 3 Mg Tablet) 6 mg PO BEDTIME PRN PRN Reason: Insomnia Ondansetron HCl (Ondansetron Hcl 4 Mg/2 Ml Vial) 4 mg IVPUSH Q8H PRN PRN Reason: Nausea and Vomiting Pharmacy Consult (Consult Rx Vancomycin Dosing) 1 each MISCELLANE DAILY PRN PRN Reason: Consult order Sodium Chloride (0.9 % Sodium Chloride Flush 3 Ml Syringe) 3 ml IVFLUSH QSHIFT [facility] Home Medications ?Medication ?Instructions ?Recorded ?Confirmed ?Last Taken ?Type flash glucose sensor (FreeStyle 11/24/23 03/22/25 Unknown History Dori 2 Sensor kit) pen needle, diabetic 32 gauge x 11/24/23 03/22/25 Unknown History 07/17 (NovoFine Plus) metformin 1,000 mg tablet 1,000 mg PO BID 03/20/24 06/04/25 06/04/25 History insulin degludec 100 unit/mL (3 See Rx Instructions .Route .COMPLEX 03/07/25 06/04/25 03/22/25 History mL) subcutaneous pen (Tresiba FlexTouch U-100 insulin) metoprolol succinate 25 mg 12.5 mg PO DAILY 03/22/25 06/04/25 06/04/25 History tablet,extended release 24 hr glipizide 5 mg tablet, extended 5 mg PO DAILY 03/23/25 06/04/25 06/04/25 History release 24 hr clotrimazole 1 % topical cream 1 appl topical BID PRN Rash 06/04/25 06/04/25 Unknown History insulin lispro 100 unit/mL See Protocol subcut TIDAC 06/04/25 06/04/25 Unknown History subcutaneous pen (Humalog KwikPen (U-100) Insulin) oxycodone 15 mg tablet 15 mg PO Q6H PRN pain 06/04/25 06/04/25 Unknown History trazodone 100 mg tablet 100 mg PO BEDTIME 06/04/25 06/04/25 06/03/25 History Physical Exam Vital Signs and Narrative: Vital Signs: Last Vital Signs Temp 97.5 F 06/04/25 10:58 Pulse 75 06/04/25 10:58 Resp 22 H 06/04/25 10:58 BP 118/58 L 06/04/25 10:58 Pulse Ox 95 06/04/25 10:58 O2 Del Method Room Air 06/04/25 10:58 BMI result Body Mass Index 25.9 Appearing in no acute distress head is normocephalic atraumatic eyes pupils are PERRLA sclera is anicteric mouth throat mucous membranes are intact and moist neck is supple no lymphadenopathy, no JVD noted lung sounds are clear to auscultation heart regular rate rhythm, clear S1, S2 positive bowel sounds, abdomen is soft, nontender neuro patient is alert x3, no focal deficits Right foot wound between greaat toe and 3rd toe Results Labs 06/05/25 05:29 06/05/25 05:29 Labs: Laboratory Results - last 24 hr 06/04/25 11:16 MCV 84.0 MCH 27.9 MCHC 33.2 RDW 15.4 Plt Count 442 H MPV 9.8 Immature Gran % (Auto) 0.6 H Neut % (Auto) 72.8 Lymph % (Auto) 14.6 L [place] % (Auto) 10.5 Eos % (Auto) 0.9 Baso % (Auto) 0.6 Lymph # (Auto) 1.9 [place] # (Auto) 1.4 H Eos # (Auto) 0.1 Baso # (Auto) 0.1 Abs Immat Gran (auto) 0.08 H Absolute Neuts (auto) 9.5 H Absolute Nucleated RBC 0.000 Nucleated RBC % (auto) 0.0 ESR 54 H Anion Gap 13 Estim Creat Clear Calc 48.4 Estimated GFR 47 Random Glucose 162 H Lactic Acid 1.9 Calcium 9.6 D Total Bilirubin 0.3 Direct Bilirubin 0.2 AST 26 ALT 28 Alkaline Phosphatase 64 C-Reactive Protein 7.01 H Total Protein 7.3 Albumin 4.1 Imaging Radiologist's Impressions: Impressions Foot X-Ray 06/04/25 11:30 IMPRESSION: Interval amputation of the second digit of the right foot at the MTP joint. There is interval increase osteopenia in the second metatarsal head and loss of cortical white line at the lateral margin of the second metatarsal head raising question of osteomyelitis. Otherwise, stable exam. Electronically signed by: Marcus Sidhu MD 06/04/2025 11:52 AM EST RP Ankle X-Ray 06/04/25 11:35 IMPRESSION: Chronic changes with medial malleolar ORIF. No acute abnormality. Electronically signed by: Marcus Sidhu MD 06/04/2025 11:48 AM EST RP Venous Duplex 06/04/25 11:57 IMPRESSION: No evidence of acute deep venous thrombosis involving the right lower extremity. Multifocal coarse linear echogenic regions in the deep wall of the right femoral vein in the mid and distal thigh, and popliteal vein are most consistent with chronic changes from remote DVT. Electronically signed by: Marcus Sidhu MD 06/04/2025 12:30 PM EST RP Assessment and Plan (1) Carotid atherosclerosis: Status: Acute Plan 64-year-old man admitted with possible osteomyelitis of right 2nd toe amputation site Possible osteomyelitis Foot x-ray showing possible osteomyelitis to right 2nd toe amputation site CRP 7.01 Vancomycin Vascular surgery consultation ID consultation MRI foot Pain management Wound care Hypokalemia Mild Lokelma Follow up BNP CKD stage IIIA Mild elevation in creatinine Mild Diabetes mellitus type 2 Sliding scale, ADA diet History of ischemic cardiomyopathy EF 25-30% as per [facility] cardiology note 05/29/2025 On Entresto DVT prophylaxis with heparin Full code Quality Stroke Does the patient have a stroke diagnosis?: No VTE Prior VTE?: No VTE Risk Level:: Medical - moderate - high VTE Device Contraindication: Treatment Not Indicated VTE Drug Contraindication: N/A - Med Ordered
[2025-06-04] MEDS: oxyCODONE HCl Immed Release 5 MG TABLET 10 MG PO (13:44)
[2025-06-04 14:00] VITALS: BP 105/52; PULSE 86; RESP 18; O2SAT 98
[2025-06-04 14:20] VITALS: BP 112/54; PULSE 70; RESP 18; O2SAT 97
--- NOTE | 2025-06-04 14:31 | PHA.PROG ---
Admission Date/Time: June 04, 2025 13:36 Indication: Skin Weight in k.6 kg Adjusted body weight in Kg: [place] body weight in Kg: Obesity Dosing Indication % IBW: Serum Creatinine - Last 168 Hours 06/04/25 11:16 Creatinine 1.50 H Estimated CrCl and GFR - Last 168 Hours 06/04/25 11:16 Estim Creat Clear Calc 48.4 Estimated GFR 47 Vancomycin Loading Dose: 2000 mg Current Vancomycin Dosing Regimen: 1000 mg Q24h Vancomycin Monitoring using AUC goal of 400 - 600 range with trough as surrogate marker: Predicted AUC 420 and trough 12.8 Date and Time for next Vancomycin Level to be drawn: 06/06 @1100 Pharmacist Comments on Vancomycin Plan: Vancomycin dosing will take advantage of NextGxDX as a clinical decision support tool that uses Bayesian modeling to calculate individual patient's pharmacokinetic parameters and forecast the patient's drug concentration time course with the target goal AUC 24 range of 400 - 600 mg/L/hr.
--- NOTE | 2025-06-04 14:34 | HO.NURTONUR ---
admit with ? r foot osteo, ambulates without assist, sepsis protocol complete, vanco infused and zosyn infusing, alert x 3, 20 l fa
--- NOTE | 2025-06-04 15:16 | PHA.MEDREC ---
Addendum entered by Cortney Baltazar RPh 06/04/25 15:43: MED REC REVIEWED BY [facility] Per Indy, patient told her that he doesn't take oxycodone 15 mg q6h prn anymore but then told nurse Maria Esther that he is still taking it. Spoke to Rupali Harper and she was made aware of the discrepancy of oxycodone and that pt doesn't know the dose/frequency of tresiba and humalog. Original Note: Pharmacy Consult ? Medication Reconciliation Pharmacy has completed the medication reconciliation. Spoke with pt and he confirmed his medications; pt also brought in Rx bottles for Farxiga, Glipizide, Metofrmin, Metoprolol, Omeprazole, Rosuvastatin and Entresto. Pt still uses Tresiba; pt injects units based on how his sugar levels are once daily and Humalog pt uses TIDAC per a sliding scale based on his sugar levels but pt unsure the last time he took either of the Insulins and pt no longer taking Zepbound; pt lost a ton of weight in the last 3 weeks and decided to stop it. Pt unsure if he was still taking Rybelsus still; states he doesn't know if Dr stopped that medication; called pt pharmacy and they state pt just picked up medication 05/29.
[2025-06-04 15:19] VITALS: BMI 26.3
[2025-06-04 15:27] VITALS: BP 115/59; PULSE 83; RESP 18; TEMP 36.2; O2SAT 98
[2025-06-04 16:09] LABS: Glucose, Whole Blood 161 mg/dL (60-115)
[2025-06-04] MEDS: oxyCODONE HCl Immed Release 15 MG TABLET PO ×2 (16:24→20:26)
[2025-06-04 20:00] VITALS: BP 116/61; PULSE 84; RESP 16; TEMP 36.6; O2SAT 97
[2025-06-04 20:21] LABS: Glucose, Whole Blood 80 mg/dL (60-115)
[2025-06-04] MEDS: Sacubitril/Valsartan 24/26 1 TAB TABLET PO (20:26)
[2025-06-04] MEDS: 0.9 % Sodium Chloride Flush 3 ML SYRINGE IVFLUSH (20:28)
[2025-06-05 00:14] VITALS: BP 104/51; PULSE 83; RESP 16; TEMP 36.5; O2SAT 97
[2025-06-05] MEDS: oxyCODONE HCl Immed Release 15 MG TABLET PO ×6 (00:26→20:40)
[2025-06-05 06:22] LABS: Hematocrit 33.1 % (42.0-52.0); Hemoglobin 10.8 g/dl (14.0-18.0); Mean Corpuscular HGB Conc 32.6 g/dl (31.0-36.0); Mean Corpuscular Hemoglobin 27.5 pg (27.0-33.0); Mean Corpuscular Volume 84.2 fL (80.0-98.0); NRBC Abs Auto 0.000 X10*3/uL (0.0-0.012); NRBC Pct Auto 0.0 /100WBC (0.0-0.2); Platelet Count 445 X10*3/uL (160-400); Red Blood Count 3.93 X10*6/uL (4.60-5.80); White Blood Count 9.2 X10*3/uL (4.8-10.8)
[2025-06-05 06:40] LABS: Anion Gap 12 (12-20); Blood Urea Nitrogen 18 mg/dL (9-16); Calcium 9.2 mg/dL (8.4-10.2); Carbon Dioxide 26 mmol/L (22-29); Chloride 100 mmol/L (96-108); Creatinine Clr Calc Pharmacy 57.2; Estimated Glomerular Filt Rate 57; Potassium 4.9 mmol/L (3.3-5.1); Sodium 133 mmol/L (135-145)
[2025-06-05 07:53] LABS: Glucose, Whole Blood 173 mg/dL (60-115)
[2025-06-05 08:00] VITALS: BP 114/57; PULSE 85; RESP 18; TEMP 36.4; O2SAT 98
[2025-06-05] MEDS: Metoprolol Succinate ER 12.5 MG HALFTAB.ER.24H PO (08:12)
[2025-06-05] MEDS: 0.9 % Sodium Chloride Flush 3 ML SYRINGE IVFLUSH ×2 (08:16→16:27)
[2025-06-05 08:52] LABS: Glucose, Whole Blood 253 mg/dL (60-115)
--- NOTE | 2025-06-05 10:01 | P.CONGS_ITS ---
History of Present Illness Consult details Consult date: 06/05/25 Reason for consult: wound care Narrative: This is a pleasant 64-year-old gentleman well known to me. He had actually undergone diagnostic angiogram on March 26 with us and subsequently on March 29 underwent right 2nd toe amputation. It has been slow to heal but he has been fairly good about local wound care and packing the wound. He reports that over the last day or so his leg became significantly swollen and painful for him. He presented to the emergency room and was subsequently started on antibiotics. Review of Systems 2 Review of Systems: Yes all other systems are reviewed and are negative Constitutional: Constitutional: Reports no additional constitutional complaints ENT: Reports Normal hearing present Cardiovascular: Cardiovascular: Denies chest pain, Denies chest pain at rest, Denies chest pain with activity and Denies pedal edema Respiratory: Respiratory: Denies cough Gastrointestinal: Gastrointestinal: Denies abdominal pain Musculoskeletal: Musculoskeletal: Denies abnormal gait, Denies muscle cramps and Denies radiating pain into limb Integumentary/Breasts: Skin/Breast: Denies skin ulcer and Denies wounds Neurologic: Reports Normal hearing present and Denies abnormal gait Psychiatric: Psychiatric: Reports no additional psychiatric complaints [facility] Past Medical History Medical History (Updated 06/04/25 @ 15:56 by Rupali Harper NP) Ischemic cardiomyopathy PAD (peripheral artery disease) Diabetic ulcer of right foot Diabetes Osteomyelitis of second toe of right foot Back pain Smoker Insomnia Amputated toe of left foot Anemia Low testosterone Hyperlipidemia Hypertension Carotid atherosclerosis Erectile dysfunction associated with type 2 diabetes mellitus Lumbar degenerative disc disease Gall bladder disease Finding of floating rib Spine disorder Pacemaker Stroke Diabetes 1.5, managed as type 2 Surgical History Surgical History History of surgery History of surgery History of appendectomy Social History Social History Household Members: Other Household Members Other:: roomate Housing: Apartment Are you a primary rn patient care to a significant other at home: No Do you presently have visiting nurse or other home services: No Alcohol intake: current Alcohol intake frequency: does not drink Alcohol type: other Comment: single [facility] Patient Tobacco Use Status: Current everyday Tobacco user Tobacco use type: Cigarette Cigarette Packs Per Day: 0.75 Cigarettes Per Day: 15.0 Years Smoked: 45 Smoked in Last 30 Days: Yes e-Cigarette/Vaping Use: Never Used Patient Interested in Nicotine Replacement: Yes Second Hand Smoke Exposure: No Use of substances other than those prescribed or required for medical reasons: No Substance Use Type: Marijuana Currently Displaying Signs/Symptoms of Drug Intoxication Withdrawal: No Special yamilex needs: No Advance Directives: No Advance Directives Information Provided: No Recently lost weight without trying: No Poor oral hygiene: No service: No Current occupational status: retired Cognitive needs: No Hearing needs: No Vision needs: No Meds Allergies Allergy/AdvReac Type Severity Reaction Status Date / Time No Known Allergies Allergy Verified 06/04/25 10:58 Active Medications: Current Medications Acetaminophen (Acetaminophen 325 Mg Tablet) 650 mg PO Q6H PRN PRN Reason: Pain, Mild 1-3,fever,headache Atorvastatin Calcium (Atorvastatin Calcium 80 Mg Tablet) 80 mg PO DAILY [facility] Last Admin: 06/05/25 08:12 Dose: 80 mg Calcium Carbonate (Calcium Carbonate 750 Mg Tab.Chew) 750 mg PO Q4H PRN PRN Reason: Heartburn Dextrose (Dextrose 50 % 25 Gm/50 Ml Syringe) 25 gm IVPUSH Q15M PRN; Protocol PRN Reason: per Hypoglycemia Standing Ord. Glucose (Glucose Gel 15 Gm Gel..Gram.) 15 gm PO Q15M PRN; Protocol PRN Reason: per Hypoglycemia Standing Ord. Heparin Sodium (Porcine) (Heparin Sodium,Porcine 5,000 Unit/Ml Vial) 5,000 unit SUBCUT Q12H [facility] Last Admin: 06/05/25 01:54 Dose: Not Given Vancomycin HCl 1,000 mg/ (Sodium Chloride) 270 mls @ 270 mls/hr IV Q24H [facility] Insulin Human Lispro (Insulin Lispro 100 Unit/Ml 3 Ml Vial) 0 unit SUBCUT QIDACHS [facility]; Protocol Last Admin: 06/05/25 08:52 Dose: 6 unit Magnesium Hydroxide (Milk Of Magnesia 30 Ml Oral.Susp) 30 ml PO DAILY PRN PRN Reason: Constipation Melatonin (Melatonin 3 Mg Tablet) 6 mg PO BEDTIME PRN PRN Reason: Insomnia Metoprolol Succinate (Metoprolol Succinate Er 12.5 Mg Halftab.Er.24h) 12.5 mg PO DAILY [facility]; Protocol Last Admin: 06/05/25 08:12 Dose: 12.5 mg Omeprazole (Omeprazole 40 Mg Capsule.Dr) 40 mg PO DAILY@0630 [facility] Last Admin: 06/05/25 05:30 Dose: 40 mg Ondansetron HCl (Ondansetron Hcl 4 Mg/2 Ml Vial) 4 mg IVPUSH Q8H PRN PRN Reason: Nausea and Vomiting Oxycodone HCl (Oxycodone Hcl Immed Release 15 Mg Tablet) 15 mg PO Q4H PRN PRN Reason: Pain, Severe (Pain Scale 7-10) Last Admin: 06/05/25 08:44 Dose: 15 mg Pharmacy Consult (Consult Rx Vancomycin Dosing) 1 each MISCELLANE DAILY PRN PRN Reason: Consult order Sacubitril/Valsartan (Sacubitril/Valsartan 1 Tab Tablet) 1 tab PO BID [facility]; Protocol Last Admin: 06/05/25 08:15 Dose: Not Given Sodium Chloride (0.9 % Sodium Chloride Flush 3 Ml Syringe) 3 ml IVFLUSH QSHIFT [facility] Last Admin: 06/05/25 08:16 Dose: 3 ml Trazodone HCl (Trazodone Hcl 100 Mg Tablet) 100 mg PO BEDTIME [facility] Last Admin: 06/04/25 20:26 Dose: 100 mg Home Medications ?Medication ?Instructions ?Recorded ?Confirmed ?Last Taken ?Type flash glucose sensor (FreeStyle 11/24/23 03/22/25 Unk nown History Dori 2 Sensor kit) pen needle, diabetic 32 gauge x 11/24/23 03/22/25 Unk nown History 07/17 (NovoFine Plus) metformin 1,000 mg tablet 1,000 mg PO BID 03/20/2406/04/25 History insulin degludec 100 unit/mL (3 See Rx Instructions .R oute .COMPLEX 03/07/25 06/04/25 03/22/25 History mL) subcutaneous pen (Tresiba FlexTouch U-100 insulin) metoprolol succinate 25 mg 12.5 mg PO DAILY 03/22/25 1 08/04/24 06/04/25 History tablet,extended release 24 hr glipizide 5 mg tablet, extended 5 mg PO DAILY 03/23/25 06/04/25 06/04/25 History release 24 hr clotrimazole 1 % topical cream 1 appl topical BID PRN Rash 06/04/25 06/04/25 Unknown History insulin lispro 100 unit/mL See Protocol subcut TIDAC 1 08/04/24 06/04/25 Unknown History subcutaneous pen (Humalog KwikPen (U-100) Insulin) oxycodone 15 mg tablet 15 mg PO Q6H PRN pain 06/04/25 Unknown History trazodone 100 mg tablet 100 mg PO BEDTIME 06/04/25 1 08/04/24 06/03/25 History Physical Exam 2 Vital Signs: Vital Signs: Last Vital Signs Temp 97.6 F 06/05/25 08:00 Pulse 85 06/05/25 08:00 Resp 18 06/05/25 08:00 BP 114/57 L 06/05/25 08:00 Pulse Ox 98 06/05/25 08:00 O2 Del Method Room Air 06/05/25 08:00 BMI result Body Mass Index 26.3 Const: General: cooperative, healthy appearing and comfortable O rientation/consciousness: oriented to person, oriented to place and oriented to time HEENT: Head: Yes normal to inspection Neck: Neck: Yes normal visual inspection Carotids: no bruits Chest: Chest palpation & inspection: normal inspection of the chest Resp: Effort & Inspection: normal respiratory effort and able to speak in complete sentences Auscultation: clear to auscultation bilaterally, no crackles, no rales, no rhonchi and no wheezes Cardio: Rate: regular rate Rhythm: regular rhythm Heart sounds: S1 normal heart sound present and S2 normal heart sound present Bruits: no carotid bruits Peripheral pulses: Peripheral pulses 2+ throughout GI: Inspection: Yes normal to inspection Skin: Other: Right 2nd toe open wound. Poor granulation bed. No bleeding. Penetrates to bone. Wounds: no wounds Hair: normal Neuro: General: oriented to person, oriented to place and oriented to time Cranial nerves: Yes CN's II-XII intact bilaterally and Yes Normal hearing present Cognition (Neuro): normal cognition Motor exam (neuro): 5/5 motor strength present throughout Extrem: Other: venous exam: No significant superficial varicosities or spider telangiectasias, minimal edema General: No clubbing, No cyanosis and No edema Psych: Appearance: grossly normal Mental Status: mental status grossly normal Speech and movement: Normal speech and movement present Results Labs 06/05/25 05:29 06/05/25 05:29 Labs: Abnormal lab results 06/04/25 06/04/25 06/05/25 Range/Units 11:16 15:43 05:29 WBC 13.0 H (4.8-10.8) X10*3/uL RBC 4.01 L 3.93 L (4.60-5.80) X10*6/uL Hgb 11.2 L 10.8 L (14.0-18.0) g/dl Hct 33.7 L 33.1 L (42.0-52.0) % Plt Count 442 H 445 H (160-400) X10*3/uL Immature Gran % (Auto) 0.6 H (0.0-0.4) % Lymph % (Auto) 14.6 L (20-40) % Garrett # (Auto) 1.4 H (0.1-1.2) X10*3/uL Abs Immat Gran (auto) 0.08 H (0.00-0.03) X10*3/uL Absolute Neuts (auto) 9.5 H (2.0-8.3) x10*3/uL ESR 54 H (0-15) MM/HR Sodium 132 L 133 L (135-145) mmol/L Potassium 5.5 H D (3.3-5.1) mmol/L BUN 23 H 18 H (9-16) mg/dL Creatinine 1.50 H (0.5-1.4) mg/dL POC Glucose 161 H (60-115) mg/dL Random Glucose 162 H 169 H (60-115) mg/dL C-Reactive Protein 7.01 H (< or = 0.50) mg/dL 06/05/25 06/05/25 Range/Units 07:35 08:49 WBC (4.8-10.8) X10*3/uL RBC (4.60-5.80) X10*6/uL Hgb (14.0-18.0) g/dl Hct (42.0-52.0) % Plt Count (160-400) X10*3/uL Immature Gran % (Auto) (0.0-0.4) % Lymph % (Auto) (20-40) % Garrett # (Auto) (0.1-1.2) X10*3/uL Abs Immat Gran (auto) (0.00-0.03) X10*3/uL Absolute Neuts (auto) (2.0-8.3) x10*3/uL ESR (0-15) MM/HR Sodium (135-145) mmol/L Potassium (3.3-5.1) mmol/L BUN (9-16) mg/dL Creatinine (0.5-1.4) mg/dL POC Glucose 173 H 253 H (60-115) mg/dL Random Glucose (60-115) mg/dL C-Reactive Protein (< or = 0.50) mg/dL Short CBC 06/04/25 06/05/25 Range/Units 11:16 05:29 WBC 13.0 H 9.2 (4.8-10.8) X10*3/uL Hgb 11.2 L 10.8 L (14.0-18.0) g/dl Hct 33.7 L 33.1 L (42.0-52.0) % Plt Count 442 H 445 H (160-400) X10*3/uL BMP 06/04/25 06/05/25 11:16 05:29 Sodium 132 L 133 L Potassium 5.5 H D 4.9 Chloride 99 100 Carbon Dioxide 26 26 BUN 23 H 18 H Creatinine 1.50 H 1.27 Calcium 9.6 D 9.2 Liver Function 06/04/25 Range/Units 11:16 Total Bilirubin 0.3 (0.0-1.0) mg/dL Direct Bilirubin 0.2 (0.0-0.5) mg/dL AST 26 (5-37) U/L ALT 28 (0-40) U/L Alkaline Phosphatase 64 (39-117) U/L Albumin 4.1 (3.5-5.0) g/dL All other labs normal. Assessment and Plan (1) PAD (peripheral artery disease): Status: Acute Plan In short patient has nonhealing right 2nd toe amputation site. At the current time the main concern here is obviously osteomyelitis. X-ray is concerning for and by the mere fact that it penetrates to bone would treat as osteomyelitis. Would involve Infectious Disease. In addition I have taken the liberty of ordering noninvasive arterial testing to ensure he has adequate supply. Would try to manage this as conservatively as possible with IV antibiotics as he would require some sort of ray amputation further resection is required. Thank you for allowing us to assist in his care. If there are any questions or concerns please do not hesitate to contact us. Procedures Date of Service Date of Service: 06/05/25
--- NOTE | 2025-06-05 11:11 | HO.WOUND ---
Wound Consult: Initial 64 yr old male admitted to [facility] on 06/04/25 - See progress notes and H&P for detailed history. Wound consult placed for right second toe amputation site. Patient agreeable to assessment and photo documentation. Patient s/p right second toe amputation 03/29/[address] Blanca following inpatient with plan in place for vascular studies, plan for ID input. Patient reports changing his own dressings at home. Patient reports that he prefers to change his own dressings, patient demonstrated dressing change appropriately, discussed use of durafiber ag for drainage absorption and antimicrobial effects, patient verbalized understanding. Right second toe amputation site Etiology: Diabetic wound/arterial ulcer Measurements: 1cm x 1cm x 1.5cm Wound Bed: yellow necrotic tissue with exposed bone in base Drainage / Odor: small serosanguineous, mild odor Edges: ? rolled, moist white macerated Sasha wound: ? No Induration, Fluctuance or Warmth noted. right foot with redness and swelling. Pain: yes Goals of Treatment: ? durafiber ag packing - defer to primary team for systemic treatment Recommendations: Right second toe amp site: cleanse with saline, gently pack with durafiber ag, cover with gauze/tape, change daily and PRN- pt prefers to change dressings himself. Re-consult wound care Nurse for wound deterioration or wound changes.
--- NOTE | 2025-06-05 11:18 | MHC.CM.PN ---
IMM DELIVERED. PT LIVES WITH FRIEND AND IS FUNCTIONALLY INDEPENDENT. NO SERVICES OR DME +DRIVES. PT DECLINES TO COMPLETE A HCP AT THIS TIME. PCP DR. PRIDE. DP: HOME WITH [facility] ([facility]) AND [facility] FOR [facility] NEEDS. REFERRALS SENT TO BOTH PARTIES. PT HAS OWN RIDE HOME. CM WILL CONTINUE TO FOLLOW FOR ANY CHANGE TO DC PLAN/NEEDS.
--- NOTE | 2025-06-05 13:58 | HO.PM.IMPN ---
Subjective Subjective Date of Service: 06/05/25 Interval History: No acute issues overnight. Pain control adequate Review of Systems Denies chest pain Denies shortness of breath Denies nausea vomiting diarrhea Denies fever chills Physical Exam Vital Signs: Vital Signs: Last Vital Signs Temp 97.6 F 06/05/25 08:00 Pulse 85 06/05/25 08:00 Resp 18 06/05/25 08:00 BP 114/57 L 06/05/25 08:00 Pulse Ox 98 06/05/25 08:00 O2 Del Method Room Air 06/05/25 08:00 BMI result Body Mass Index 26.3 Const: Other: Awake alert no acute distress Resp: Other: Clear to auscultation bilaterally no rales rhonchi or wheezes Cardio: Other: No S4; positive S1-S2; no S3 murmurs rubs or gallops GI: Other: Soft nontender nondistended normoactive bowel sounds Extrem: Other: Erythema noted dorsum right foot Objective Data Active Medications Acetaminophen (Acetaminophen 325 Mg Tablet) 650 mg PO Q6H PRN PRN Reason: Pain, Mild 1-3,fever,headache Atorvastatin Calcium (Atorvastatin Calcium 80 Mg Tablet) 80 mg PO DAILY [facility] Last Admin: 06/05/25 08:12 Dose: 80 mg Documented By: MARICHUY Calcium Carbonate (Calcium Carbonate 750 Mg Tab.Chew) 750 mg PO Q4H PRN PRN Reason: Heartburn Dextrose (Dextrose 50 % 25 Gm/50 Ml Syringe) 25 gm IVPUSH Q15M PRN; Protocol PRN Reason: per Hypoglycemia Standing Ord. Glucose (Glucose Gel 15 Gm Gel..Gram.) 15 gm PO Q15M PRN; Protocol PRN Reason: per Hypoglycemia Standing Ord. Heparin Sodium (Porcine) (Heparin Sodium,Porcine 5,000 Unit/Ml Vial) 5,000 unit SUBCUT Q12H [facility] Last Admin: 06/05/25 12:22 Dose: Not Given Documented By: SAMIR Non-Admin Reason: Patient Refused Vancomycin HCl 1,000 mg/ (Sodium Chloride) 270 mls @ 270 mls/hr IV Q24H [facility] Last Infusion: 06/05/25 12:41 Dose: 0 mls/hr Documented By: MARICHUY Insulin Human Lispro (Insulin Lispro 100 Unit/Ml 3 Ml Vial) 0 unit SUBCUT QIDACHS [facility]; Protocol Last Admin: 06/05/25 08:52 Dose: 6 unit Documented By: MARICHUY Comments: patient wanted insulin administered at this time. Magnesium Hydroxide (Milk Of Magnesia 30 Ml Oral.Susp) 30 ml PO DAILY PRN PRN Reason: Constipation Melatonin (Melatonin 3 Mg Tablet) 6 mg PO BEDTIME PRN PRN Reason: Insomnia Metoprolol Succinate (Metoprolol Succinate Er 12.5 Mg Halftab.Er.24h) 12.5 mg PO DAILY [facility]; Protocol Last Admin: 06/05/25 08:12 Dose: 12.5 mg Documented By: MARICHUY Omeprazole (Omeprazole 40 Mg Capsule.Dr) 40 mg PO DAILY@0630 [facility] Last Admin: 06/05/25 05:30 Dose: 40 mg Documented By: CHANTALE Ondansetron HCl (Ondansetron Hcl 4 Mg/2 Ml Vial) 4 mg IVPUSH Q8H PRN PRN Reason: Nausea and Vomiting Oxycodone HCl (Oxycodone Hcl Immed Release 15 Mg Tablet) 15 mg PO Q4H PRN PRN Reason: Pain, Severe (Pain Scale 7-10) Last Admin: 06/05/25 12:23 Dose: 15 mg Documented By: SAMIR Pharmacy Consult (Consult Rx Vancomycin Dosing) 1 each MISCELLANE DAILY PRN PRN Reason: Consult order Sacubitril/Valsartan (Sacubitril/Valsartan 1 Tab Tablet) 1 tab PO BID [facility]; Protocol Last Admin: 06/05/25 08:15 Dose: Not Given Documented By: MARICHUY Non-Admin Reason: Patient Refused Sodium Chloride (0.9 % Sodium Chloride Flush 3 Ml Syringe) 3 ml IVFLUSH QSHIFT [facility] Last Admin: 06/05/25 08:16 Dose: 3 ml Documented By: MARICHUY Trazodone HCl (Trazodone Hcl 100 Mg Tablet) 100 mg PO BEDTIME [facility] Last Admin: 06/04/25 20:26 Dose: 100 mg Documented By: CHANTALE Labs 06/05/25 05:29 06/05/25 05:29 Labs: Laboratory Results - last 24 hr 06/04/25 06/04/25 06/05/25 15:43 20:05 05:29 MCV 84.2 MCH 27.5 MCHC 32.6 RDW 15.3 Plt Count 445 H MPV 10.2 Absolute Nucleated RBC 0.000 Nucleated RBC % (auto) 0.0 Anion Gap 12 Estim Creat Clear Calc 57.2 Estimated GFR 57 POC Glucose 161 H 80 Random Glucose 169 H Calcium 9.2 06/05/25 06/05/25 07:35 08:49 MCV MCH MCHC RDW Plt Count MPV Absolute Nucleated RBC Nucleated RBC % (auto) Anion Gap Estim Creat Clear Calc Estimated GFR POC Glucose 173 H 253 H Random Glucose Calcium Microbiology Microbiology Results: Microbiology 06/04/25 11:16 Blood Culture - Preliminary Blood - Venous No growth after 24 hours. Assessment and Plan (1) Osteomyelitis: Status: Acute (2) Diabetes 1.5, managed as type 2: Status: Acute Plan 64-year-old man admitted with possible osteomyelitis of right 2nd toe amputation site 1.Cellulitis/Possible osteomyelitis -Foot x-ray showing possible osteomyelitis to right 2nd toe amputation site -inflammatory markers elevated -Vancomycin (2) -Vascular surgery consultation appreciated 2.CKD stage IIIA -stable and well compensated -follow renals/divalents 3.Diabetes mellitus type 2 -acceptable control on current therapies -lispro correctional scale -adjust as indicated 4.History of ischemic cardiomyopathy -stable and well compensated -continue current therapies DVT prophylaxis with heparin Full code Quality Stroke Does the patient have a stroke diagnosis?: No VTE Prior VTE?: No VTE Risk Level:: Medical - moderate - high VTE Device Contraindication: Treatment Not Indicated VTE Drug Contraindication: N/A - Med Ordered
--- NOTE | 2025-06-05 14:30 | PC.NURSE ---
Upon entering room patient had personal bag on bed open, nurse could visualize multiple prescription bottles in bag. Upon asking patient about medications patient became very angry, yelling at nurse to get out of my room . Charge nurse Edna informed and this nurse and charge nurse went back into room and educated patient on hospital policy about having medications at bedside of patient, patient was angry and yelling, stating you aren't touching fucking nothing , patient then individual showed nurse each medication bottle but did not allow nursing to hold or take medication pills. Security called to bedside and security was able to retrieve medication bottles. Bottles stored in pharamcy until discharge, patient educated regarding medication storage.
[2025-06-05 14:40] LABS: Glucose, Whole Blood 166 mg/dL (60-115)
[2025-06-05 15:10] VITALS: BP 123/59; PULSE 81; RESP 19; TEMP 36.7; O2SAT 100
--- NOTE | 2025-06-05 15:29 | W.PM.IDCN ---
History of Present Illness Data of Consult Service Date: 06/05/25 Requesting physician: Tony Denny Primary Care Provider: Joao Stanford MD HPI Reason for consult: OM right 2nd metatarsal head He presents with two days redness and heat right foot,especially around right second metatarsal head. He has XRay some osteopenia and loss of cortical white line suggestive OM second metatarsal head. He has seen Dr Blanca and area bone concerning with probe. ESR elevated 54. Review of Systems Review of Systems: Yes all other systems are reviewed and are negative [facility] Past Medical History Medical History Ischemic cardiomyopathy PAD (peripheral artery disease) Diabetic ulcer of right foot Diabetes Osteomyelitis of second toe of right foot Back pain Smoker Insomnia Amputated toe of left foot Anemia Low testosterone Hyperlipidemia Hypertension Carotid atherosclerosis Erectile dysfunction associated with type 2 diabetes mellitus Lumbar degenerative disc disease Gall bladder disease Finding of floating rib Spine disorder Pacemaker Stroke Diabetes 1.5, managed as type 2 Family History Family history: reviewed and not pertinent Surgical History Surgical History History of surgery History of surgery History of appendectomy Social History Social History Household Members: Other Household Members Other:: roomate Both parents involved: No Caregiver staying overnight: No Housing: Apartment Are you a primary primary care coordinator to a significant other at home: No Do you presently have visiting nurse or other home services: No 75 years or older and lives alone: No Alcohol intake: current Alcohol intake frequency: does not drink Alcohol type: other Comment: single [facility] Patient Tobacco Use Status: Current everyday Tobacco user Tobacco use type: Cigarette Cigarette Packs Per Day: 0.75 Cigarettes Per Day: 15.0 Years Smoked: 45 e-Cigarette/Vaping Use: Never Used Second Hand Smoke Exposure: No Substance Use Type: Marijuana Special yamilex needs: No service: No Current occupational status: retired Cognitive needs: No Hearing needs: No Vision needs: No Meds Allergies Allergy/AdvReac Type Severity Reaction Status Date / Time No Known Allergies Allergy Verified 06/04/25 10:58 Active Medications: Current Medications Acetaminophen (Acetaminophen 325 Mg Tablet) 650 mg PO Q6H PRN PRN Reason: Pain, Mild 1-3,fever,headache Atorvastatin Calcium (Atorvastatin Calcium 80 Mg Tablet) 80 mg PO DAILY [facility] Last Admin: 06/05/25 08:12 Dose: 80 mg Calcium Carbonate (Calcium Carbonate 750 Mg Tab.Chew) 750 mg PO Q4H PRN PRN Reason: Heartburn Dextrose (Dextrose 50 % 25 Gm/50 Ml Syringe) 25 gm IVPUSH Q15M PRN; Protocol PRN Reason: per Hypoglycemia Standing Ord. Glucose (Glucose Gel 15 Gm Gel..Gram.) 15 gm PO Q15M PRN; Protocol PRN Reason: per Hypoglycemia Standing Ord. Heparin Sodium (Porcine) (Heparin Sodium,Porcine 5,000 Unit/Ml Vial) 5,000 unit SUBCUT Q12H [facility] Last Admin: 06/05/25 12:22 Dose: Not Given Vancomycin HCl 1,000 mg/ (Sodium Chloride) 270 mls @ 270 mls/hr IV Q24H [facility] Last Infusion: 06/05/25 13:44 Dose: Infused Insulin Human Lispro (Insulin Lispro 100 Unit/Ml 3 Ml Vial) 0 unit SUBCUT QIDACHS [facility]; Protocol Last Admin: 06/05/25 14:57 Dose: 2 unit Magnesium Hydroxide (Milk Of Magnesia 30 Ml Oral.Susp) 30 ml PO DAILY PRN PRN Reason: Constipation Melatonin (Melatonin 3 Mg Tablet) 6 mg PO BEDTIME PRN PRN Reason: Insomnia Metoprolol Succinate (Metoprolol Succinate Er 12.5 Mg Halftab.Er.24h) 12.5 mg PO DAILY [facility]; Protocol Last Admin: 06/05/25 08:12 Dose: 12.5 mg Omeprazole (Omeprazole 40 Mg Capsule.Dr) 40 mg PO DAILY@0630 [facility] Last Admin: 06/05/25 05:30 Dose: 40 mg Ondansetron HCl (Ondansetron Hcl 4 Mg/2 Ml Vial) 4 mg IVPUSH Q8H PRN PRN Reason: Nausea and Vomiting Oxycodone HCl (Oxycodone Hcl Immed Release 15 Mg Tablet) 15 mg PO Q4H PRN PRN Reason: Pain, Severe (Pain Scale 7-10) Last Admin: 06/05/25 12:23 Dose: 15 mg Pharmacy Consult (Consult Rx Vancomycin Dosing) 1 each MISCELLANE DAILY PRN PRN Reason: Consult order Sacubitril/Valsartan (Sacubitril/Valsartan 24/26 1 Tab Tablet) 1 tab PO BID [facility]; Protocol Last Admin: 06/05/25 08:15 Dose: Not Given Sodium Chloride (0.9 % Sodium Chloride Flush 3 Ml Syringe) 3 ml IVFLUSH QSHIFT [facility] Last Admin: 06/05/25 08:16 Dose: 3 ml Trazodone HCl (Trazodone Hcl 100 Mg Tablet) 100 mg PO BEDTIME [facility] Last Admin: 06/04/25 20:26 Dose: 100 mg Home Medications ?Medication ?Instructions ?Recorded ?Confirmed ?Last Taken ?Type flash glucose sensor (FreeStyle 11/24/23 03/22/25 Unknown History Dori 2 Sensor kit) pen needle, diabetic 32 gauge x 11/24/23 03/22/25 Unknown History 07/17 (NovoFine Plus) metformin 1,000 mg tablet 1,000 mg PO BID 03/20/24 06/04/25 06/04/25 History insulin degludec 100 unit/mL (3 See Rx Instructions .Route .COMPLEX 03/07/25 06/04/25 03/22/25 History mL) subcutaneous pen (Tresiba FlexTouch U-100 insulin) metoprolol succinate 25 mg 12.5 mg PO DAILY 03/22/25 06/04/25 06/04/25 History tablet,extended release 24 hr glipizide 5 mg tablet, extended 5 mg PO DAILY 03/23/25 06/04/25 06/04/25 History release 24 hr clotrimazole 1 % topical cream 1 appl topical BID PRN Rash 06/04/25 06/04/25 Unknown History insulin lispro 100 unit/mL See Protocol subcut TIDAC 06/04/25 06/04/25 Unknown History subcutaneous pen (Humalog KwikPen (U-100) Insulin) oxycodone 15 mg tablet 15 mg PO Q6H PRN pain 06/04/25 06/04/25 Unknown History trazodone 100 mg tablet 100 mg PO BEDTIME 06/04/25 06/04/25 06/03/25 History Physical Exam Vital Signs: Vital Signs: Last Vital Signs Temp 98.1 F 06/05/25 15:10 Pulse 81 06/05/25 15:10 Resp 19 06/05/25 15:10 BP 123/59 L 06/05/25 15:10 Pulse Ox 100 06/05/25 15:10 O2 Del Method Room Air 06/05/25 15:10 BMI result Body Mass Index 26.3 Const: General: cooperative HEENT: Head: Yes normal to inspection Face and sinus: Yes normal facial exam Mouth: Normal oral and palatal mucosa present Teeth and gingiva: dentition normal Eyes: General: appearance normal, both eyes and all related structures Pupils: Equal, round and reactive pupils present Resp: Effort & Inspection: normal respiratory effort Cardio: Rate: regular rate Rhythm: regular rhythm GI: Palpation (GI): Soft to palpation and nontender : General: Yes no CVA tenderness Back/Spine/Pelvis: Back: no CVA tenderness Skin: General skin exam: no rashes or lesions noted Neuro: General: moves all extremities Cranial nerves: Yes Equal, round and reactive pupils present Extrem: Other: redness right foot especially second metatarsal head wound present,no purulence pulse plus 1 Psych: Appearance: grossly normal Results Labs 06/05/25 05:29 06/05/25 05:29 Labs: Short CBC 06/05/25 Range/Units 05:29 WBC 9.2 (4.8-10.8) X10*3/uL Hgb 10.8 L (14.0-18.0) g/dl Hct 33.1 L (42.0-52.0) % Plt Count 445 H (160-400) X10*3/uL BMP 06/05/25 05:29 Sodium 133 L Potassium 4.9 Chloride 100 Carbon Dioxide 26 BUN 18 H Creatinine 1.27 Calcium 9.2 Microbiology Microbiology Results: Microbiology 06/04/25 12:24 Blood - Venous Blood Culture - Preliminary No growth after 24 hours. 06/04/25 11:16 Blood - Venous Blood Culture - Preliminary No growth after 24 hours. Assessment and Plan (1) Osteomyelitis: Qualifiers: Laterality: right Osteomyelitis location: foot Osteomyelitis type: unspecified type Qualified Code(s): M86.9 - Osteomyelitis, unspecified Status: Acute Plan OM right metatarsal head post surgery,affected bone removed at the time Antibiotics not curative without removal/TMA He has potential for IV antibiotics for six weeks help suppress OM however and make dormant if vascular reeval reveals good enough blood flow Would choose Vancomycin with weekly troughs and creatinine and ESR or Daptomycin with weekly CK and creatinine and ESR for six weeks total IV antibiotics via PICC line Please dont order MRI of foot ,would not help with management at this time. Follow Vascular and Wound both whom he had been seeing Would like to follow as outpatient. Ty
[2025-06-05 17:47] LABS: Glucose, Whole Blood 141 mg/dL (60-115)
[2025-06-05 19:03] VITALS: BP 124/72; PULSE 83; RESP 16; TEMP 36.6; O2SAT 98
[2025-06-05 20:32] LABS: Glucose, Whole Blood 196 mg/dL (60-115)
[2025-06-05] MEDS: Sacubitril/Valsartan 24/26 1 TAB TABLET PO (20:40)
[2025-06-06] MEDS: oxyCODONE HCl Immed Release 15 MG TABLET PO ×6 (00:44→22:18)
[2025-06-06 03:05] VITALS: BP 102/54; PULSE 94; RESP 17; TEMP 36.7; O2SAT 96
[2025-06-06 06:01] LABS: Creatinine Clr Calc Pharmacy 59.0; Estimated Glomerular Filt Rate 59
[2025-06-06 07:28] VITALS: BP 113/54; PULSE 92; RESP 18; TEMP 36.5; O2SAT 98
[2025-06-06 07:52] LABS: Glucose, Whole Blood 214 mg/dL (60-115)
[2025-06-06] MEDS: Sacubitril/Valsartan 24/26 1 TAB TABLET PO ×2 (07:59→19:41)
[2025-06-06] MEDS: Metoprolol Succinate ER 12.5 MG HALFTAB.ER.24H PO (08:00)
[2025-06-06] MEDS: 0.9 % Sodium Chloride Flush 3 ML SYRINGE IVFLUSH (08:01)
--- NOTE | 2025-06-06 11:11 | HO.VASCPN ---
Subjective Subjective Date of Service: 06/06/25 Patient reports: no new complaints and feels better Interval history: Patient seen and examined. No significant events overnight. In general appears to be doing somewhat better. Reports leg swelling is significantly better. In good spirits. Now for follow-up. Physical Exam Vital Signs: Vital Signs: Last Vital Signs Temp 97.7 F 06/06/25 07:28 Pulse 92 06/06/25 07:28 Resp 18 06/06/25 07:28 BP 113/54 L 06/06/25 07:28 Pulse Ox 98 06/06/25 07:28 O2 Del Method Room Air 06/06/25 07:28 BMI result Body Mass Index 26.3 Const: General: cooperative, healthy appearing and comfortable Orientation/consciousness: oriented to person, oriented to place and oriented to time HEENT: Head: Yes normal to inspection Neck: Neck: Yes normal visual inspection Carotids: no bruits Chest: Chest palpation & inspection: normal inspection of the chest Resp: Effort & Inspection: normal respiratory effort and able to speak in complete sentences Auscultation: clear to auscultation bilaterally, no crackles, no rales, no rhonchi and no wheezes Cardio: Rate: regular rate Rhythm: regular rhythm Heart sounds: S1 normal heart sound present and S2 normal heart sound present Bruits: no carotid bruits Peripheral pulses: Peripheral pulses 2+ throughout GI: Inspection: Yes normal to inspection Skin: Other: Right leg +1 edema Wounds: no wounds Hair: normal Neuro: General: oriented to person, oriented to place and oriented to time Cranial nerves: Yes CN's II-XII intact bilaterally and Yes Normal hearing present Cognition (Neuro): normal cognition Motor exam (neuro): 5/5 motor strength present throughout Extrem: Other: venous exam: No significant superficial varicosities or spider telangiectasias, minimal edema General: No clubbing, No cyanosis and No edema Psych: Appearance: grossly normal Mental Status: mental status grossly normal Speech and movement: Normal speech and movement present Progress Note: A&P Assessment and plan (1) PAD (peripheral artery disease): Status: Acute Assessment and Plan: In short patient is doing well in terms of his amputation. He does concerns of underlying osteomyelitis and may require long-term IV antibiotics. I did have an opportunity to review his noninvasive testing and there is concern for distal SFA disease. We did do an angiogram on him in March. I did review those images and it appears to be stable. May require reintervention as an outpatient. Once again continue with medical management and he can follow up with us as an outpatient. Thank you for allowing us to assist in his care. If there are any questions or concerns please do not hesitate to contact us Time Spent With Patient Time: Total time managing care of this patient today ____ minutes. Procedures Date of Service Date of Service: 06/06/25 Quality Stroke Does the patient have a stroke diagnosis?: No VTE Prior VTE?: No VTE Risk Level:: Medical - moderate - high VTE Device Contraindication: Treatment Not Indicated VTE Drug Contraindication: N/A - Med Ordered
[2025-06-06 11:20] LABS: Glucose, Whole Blood 265 mg/dL (60-115)
--- NOTE | 2025-06-06 11:48 | HE.PHANOTE ---
RE: VANCO DOSNG Trough came back as 8.2 mg/L, renal function is stable. Dose is increased to 1250 mg q24h, next trough is scheduled for 06/07/25 @1100.
--- NOTE | 2025-06-06 14:37 | MHC.CM.PN ---
PT AWAITING PICC PLACEMENT/DOSE OF DAPTOMYCIN THEN DC TO HOME TODAY. [facility] UPDATED ON PLAN. [facility] IS IN TO DO TEACH. CM WILL CONTINUE TO FOLLOW. PT HAS OWN RIDE HOME.
[2025-06-06 15:06] VITALS: BP 117/57; PULSE 87; RESP 19; TEMP 36.2; O2SAT 100
--- NOTE | 2025-06-06 16:09 | HO.PM.IMPN ---
Subjective Subjective Date of Service: 06/06/25 Interval History: No acute issues overnight. PICC line placed today Review of Systems Denies chest pain Denies shortness of breath Denies nausea vomiting diarrhea Denies fever chills Physical Exam Vital Signs: Vital Signs: Last Vital Signs Temp 97.1 F 06/06/25 15:06 Pulse 87 06/06/25 15:06 Resp 19 06/06/25 15:06 BP 117/57 L 06/06/25 15:06 Pulse Ox 100 06/06/25 15:06 O2 Del Method Room Air 06/06/25 15:06 BMI result Body Mass Index 26.3 Const: Other: Awake alert no acute distress Resp: Other: Clear to auscultation bilaterally no rales rhonchi or wheezes Cardio: Other: No S4; positive S1-S2; no S3 murmurs rubs or gallops GI: Other: Soft nontender nondistended normoactive bowel sounds Extrem: Other: Erythema noted dorsum right foot Objective Data Active Medications Acetaminophen (Acetaminophen 325 Mg Tablet) 650 mg PO Q6H PRN PRN Reason: Pain, Mild 1-3,fever,headache Atorvastatin Calcium (Atorvastatin Calcium 80 Mg Tablet) 80 mg PO DAILY [facility] Last Admin: 06/06/25 07:59 Dose: 80 mg Documented By: KELSEY Calcium Carbonate (Calcium Carbonate 750 Mg Tab.Chew) 750 mg PO Q4H PRN PRN Reason: Heartburn Dextrose (Dextrose 50 % 25 Gm/50 Ml Syringe) 25 gm IVPUSH Q15M PRN; Protocol PRN Reason: per Hypoglycemia Standing Ord. Glucose (Glucose Gel 15 Gm Gel..Gram.) 15 gm PO Q15M PRN; Protocol PRN Reason: per Hypoglycemia Standing Ord. Heparin Sodium (Porcine) (Heparin Sodium,Porcine 5,000 Unit/Ml Vial) 5,000 unit SUBCUT Q12H [facility] Last Admin: 06/06/25 12:01 Dose: Not Given Documented By: KELSEY Non-Admin Reason: Patient Refused Daptomycin 700 mg/ Sodium (Chloride) 64 mls @ 96.97 mls/hr IV ONCE ONE Stop: 06/07/25 09:39 Insulin Human Lispro (Insulin Lispro 100 Unit/Ml 3 Ml Vial) 0 unit SUBCUT QIDACHS [facility]; Protocol Last Admin: 06/06/25 11:28 Dose: 6 unit Documented By: KELSEY Magnesium Hydroxide (Milk Of Magnesia 30 Ml Oral.Susp) 30 ml PO DAILY PRN PRN Reason: Constipation Melatonin (Melatonin 3 Mg Tablet) 6 mg PO BEDTIME PRN PRN Reason: Insomnia Metoprolol Succinate (Metoprolol Succinate Er 12.5 Mg Halftab.Er.24h) 12.5 mg PO DAILY [facility]; Protocol Last Admin: 06/06/25 08:00 Dose: 12.5 mg Documented By: KELSEY Morphine Sulfate (Morphine Sulfate 4 Mg/Ml Cartridge) 4 mg IVPUSH Q4H PRN; Protocol PRN Reason: Pain, Severe (Pain Scale 7-10) Omeprazole (Omeprazole 40 Mg Capsule.Dr) 40 mg PO DAILY@0630 [facility] Last Admin: 06/06/25 05:20 Dose: 40 mg Documented By: CHANTALE Ondansetron HCl (Ondansetron Hcl 4 Mg/2 Ml Vial) 4 mg IVPUSH Q8H PRN PRN Reason: Nausea and Vomiting Oxycodone HCl (Oxycodone Hcl Immed Release 15 Mg Tablet) 15 mg PO Q4H PRN PRN Reason: Pain, Severe (Pain Scale 7-10) Last Admin: 06/06/25 14:09 Dose: 15 mg Documented By: KELSEY Pharmacy Consult (Consult Rx Vancomycin Dosing) 1 each MISCELLANE DAILY PRN PRN Reason: Consult order Sacubitril/Valsartan (Sacubitril/Valsartan 1 Tab Tablet) 1 tab PO BID [facility]; Protocol Last Admin: 06/06/25 07:59 Dose: 1 tab Documented By: KELSEY Sodium Chloride (0.9 % Sodium Chloride Flush 3 Ml Syringe) 3 ml IVFLUSH QSHIFT [facility] Last Admin: 06/06/25 08:01 Dose: 3 ml Documented By: KELSEY Trazodone HCl (Trazodone Hcl 100 Mg Tablet) 100 mg PO BEDTIME [facility] Last Admin: 06/05/25 20:40 Dose: 100 mg Documented By: CHANTALE Labs 06/05/25 05:29 06/06/25 05:14 Labs: Laboratory Results - last 24 hr 06/05/25 06/05/25 06/06/25 17:43 20:16 05:14 Estim Creat Clear Calc 59.0 Estimated GFR 59 POC Glucose 141 H 196 H Random Vancomycin 06/06/25 06/06/25 06/06/25 07:26 11:02 11:04 Estim Creat Clear Calc Estimated GFR POC Glucose 214 H 265 H Random Vancomycin 8.2 L Microbiology Microbiology Results: Microbiology 06/04/25 12:24 Blood Culture - Preliminary Blood - Venous No growth after 48 hours. 06/04/25 11:16 Blood Culture - Preliminary Blood - Venous No growth after 48 hours. Assessment and Plan (1) Osteomyelitis: Status: Acute Plan 64-year-old man admitted with possible osteomyelitis of right 2nd toe amputation site 1.Cellulitis/Possible osteomyelitis -Foot x-ray showing possible osteomyelitis to right 2nd toe amputation site -inflammatory markers elevated... ID recommends no further MRI -Vancomycin (3)..... ID recommends daptomycin daily for 6 weeks; given vanco dosing pharmacy states can not receive 1st dose of daptomycin until 06/07/25 am 2.CKD stage IIIA -stable and well compensated -follow renals/divalents 3.Diabetes mellitus type 2 -acceptable control on current therapies -lispro correctional scale -adjust as indicated 4.History of ischemic cardiomyopathy -stable and well compensated -continue current therapies DVT prophylaxis with heparin Full code Quality Stroke Does the patient have a stroke diagnosis?: No VTE Prior VTE?: No VTE Risk Level:: Medical - moderate - high VTE Device Contraindication: Treatment Not Indicated VTE Drug Contraindication: N/A - Med Ordered
--- NOTE | 2025-06-06 16:52 | P.PNID_ITS ---
Subjective Subjective Date of Service: 06/06/25 Critical Care Time (minutes): 15 Comment: He is tolerating Vancomycin Objective Data Labs 06/05/25 05:29 06/06/25 05:14 Labs: Laboratory Results - last 24 hr 06/05/25 06/05/25 06/06/25 17:43 20:16 05:14 Creatinine 1.23 Estim Creat Clear Calc 59.0 Estimated GFR 59 POC Glucose 141 H 196 H Random Vancomycin 06/06/25 06/06/25 06/06/25 07:26 11:02 11:04 Creatinine Estim Creat Clear Calc Estimated GFR POC Glucose 214 H 265 H Random Vancomycin 8.2 L Microbiology Microbiology Results: Microbiology 06/04/25 12:24 Blood - Venous Blood Culture - Preliminary No growth after 48 hours. 06/04/25 11:16 Blood - Venous Blood Culture - Preliminary No growth after 48 hours. Physical Exam 2 Vital Signs: Vital Signs: Last Vital Signs Temp 97.1 F 06/06/25 15:06 Pulse 87 06/06/25 15:06 Resp 19 06/06/25 15:06 BP 117/57 L 06/06/25 15:06 Pulse Ox 100 06/06/25 15:06 O2 Del Method Room Air 06/06/25 15:06 BMI result Body Mass Index 26.3 Const: General: cooperative HEENT: Head: Yes normal to inspection Face and sinus: Yes normal facial exam Mouth: Normal oral and palatal mucosa present Teeth and gingiva: d entition normal Eyes: General: appearance normal, both eyes and all related structures P upils: Equal, round and reactive pupils present Resp: Effort & Inspection: normal respiratory effort Cardio: Rate: regular rate Rhythm: regular rhythm GI: Palpation (GI): Soft to palpation and nontender : General: Yes no CVA tenderness Back/Spine/Pelvis: Back: no CVA tenderness Skin: General skin exam: no rashes or lesions noted Neuro: General: moves all extremities Cranial nerves: Yes Equal, round and reactive pupils present Extrem: Other: foot stable General: Yes normal to inspection Psych: Appearance: grossly normal Assessment and Plan Assessment and plan (1) Osteomyelitis: Problem details: He is getting Daptomycin tomorrow Status: Acute Assessment and Plan: Finish 6 weeks IV Daptomycin with weekly creatinine and CK and CBC and ESR. Time Spent With Patient Time: Total time managing care of this patient today ____ minutes.
--- NOTE | 2025-06-06 17:14 | P.PICC_ITS ---
PICC Line Insertion NPICC INSERTION Diagnosis: OSTEO Indication: TOWEL WEAVER ANTIBX Pertinent Labs: REVIEWED Technique: Following informed consent including risks, benefits and alternatives and using sterile technique including cap and mask, sterile gown, glove and drape, the RIGHT arm was prepped and draped in the usual sterile fashion of full barrier technique with G. Following completion of [place] Protocol the skin and soft tissues were anesthetized with 1% Lidocaine plain. Using ultrasound guidance, RIGHT BASILIC vein access was obtained. Over an 0.018 wire through peel-away sheath, a 4FR POWERPICC PASV line was positioned. Catheter length is 39CM internal length, 0CM external length, for a total trimmed length of 39CM. The procedure was performed in RM. 7. Tip verification was performed by Rajiv Wolfe with Sherlock 3CG. Tip located in SVC. Ultrasound was used to document vein patency and for needle entry. A formal ultrasound picture and cardiac rhythm strip was recorded. Vascular Supervisor C[employer]arette Making Department has released the line for use and it is currently dressed with a StatLock, Tegaderm, and CHG disc. Verification has been performed for blood return and line patency. Arm Circumference: 28CM Equipment: [employer] POWERPICC SOLO CATHETER WITH SERLOCK 3CG TIP Catheter Type: 4FR POWERPICC line PASV Lot #: [id number]
[2025-06-06 17:20] LABS: Glucose, Whole Blood 156 mg/dL (60-115)
[2025-06-06 19:33] VITALS: BP 132/58; PULSE 94; RESP 19; TEMP 36.7; O2SAT 96
[2025-06-06 20:45] LABS: Glucose, Whole Blood 230 mg/dL (60-115)
[2025-06-07 03:49] VITALS: BP 129/60; PULSE 96; RESP 18; TEMP 37.2; O2SAT 93
[2025-06-07] MEDS: oxyCODONE HCl Immed Release 15 MG TABLET PO ×2 (04:18→09:01)
[2025-06-07 07:22] VITALS: BP 117/58; PULSE 83; RESP 16; TEMP 36.9; O2SAT 97
[2025-06-07 07:26] LABS: Creatinine Clr Calc Pharmacy 62.1; Estimated Glomerular Filt Rate > 60
[2025-06-07 07:35] LABS: Glucose, Whole Blood 219 mg/dL (60-115)
[2025-06-07] MEDS: Sacubitril/Valsartan 24/26 1 TAB TABLET PO (07:55)
[2025-06-07] MEDS: 0.9 % Sodium Chloride Flush 3 ML SYRINGE IVFLUSH (07:56)
[2025-06-07] MEDS: Metoprolol Succinate ER 12.5 MG HALFTAB.ER.24H PO (07:56)
--- NOTE | 2025-06-07 08:31 | MHC.CM.PN ---
PER PREVIOUS CM, PT SET TO DC HOME TODAY AFTER HE RECEIVES HIS DAPTO. [facility] WILL DELIVER AND [facility] WILL PROVIDE SOC TOMORROW
--- NOTE | 2025-06-07 10:47 | PC.NURSE ---
PICC Line Dressing changed, using sterile technique. Patient tolerated well.
[2025-06-07 11:11] LABS: Glucose, Whole Blood 212 mg/dL (60-115)
--- NOTE | 2025-06-07 11:37 | PC.NURSE ---
Patient refuses to have drsg changed to right foot stating he changed it himself already
--- NOTE | 2025-06-07 12:04 | P.F2F_ITS ---
Service Date Service Date: 06/07/25 Encounter Date of encounter: 06/07/25 Reasons for Services Signs and symptoms assessed: wound care, IV infusion Reason for senior living: wound care, administration of IV, SQ, or IM injection, central line care, diabetic teaching and medication treatment MD Overseeing Care: Joao Stanford Homebound: Leaving the home is medically contraindicated at this time without the asist of a device and/or another person due th the listed conditions above and below. Reason homebound: immunosuppression / infection risk Certification: Based on the above findings, I certify that this patient is confined to the home and needs intermittent senior living care, physical therapy and/or speech therapy, or continues to need occupational therapy. The patient is under my care, and I have initiated the establishment of the plan of care. The patient will be followed by a physician who will periodically review the plan of care. Time Spent With Patient Time: Total time managing care of this patient today ____ minutes.
--- NOTE | 2025-06-07 12:05 | P.DS_ITS ---
DS: Providers Provider Date of Service: 06/07/25 Date of admission: 06/04/25 13:36 Date of discharge: 06/07/25 Primary care physician: Joao Stanford MD Consults: 06/04/25 13:38 Consult to Vascular Surgery Routine Consulting Provider: [facility] Reason for consultation: osteomyelitis 06/04/25 15:59 Consult to Wound Care Routine Consulting Provider: [facility] Wound Care Management Reason for consultation: R TMA 2nd digit tunneling wound 06/05/25 07:25 Consult to Infectious Diseases Routine Consulting Provider: [facility] Infectious Disease Center Reason for consultation: ? Osteo Has provider been notified: Yes 06/06/25 15:39 Consult to Infectious Diseases Routine Consulting Provider: [facility] Infect[facility] Disease [facility] Reason for consultation: osteo DS: Diagnosis Discharge Diagnosis (1) Osteomyelitis: Status: Acute (2) Diabetic osteomyelitis: Status: Acute (3) PAD (peripheral artery disease): Status: Acute (4) Infection of amputation site of lower extremity: Status: Acute (5) CKD stage 3a, GFR 45-59 ml/min: Status: Acute DS: Summary Hospital Course Hospital Course: From the history and physical by the admitting hospitalist, Rupali Harper NP, 06/04/25: 64-year-old man presented to the ER with complaints of swelling, redness and pain to his right foot. He has a history of right 2nd toe amputation site by vascular surgery. He has been doing wound care at home however he feels like the wound is getting worse. He denied fever, chills, nausea, vomiting, diarrhea. Foot x-ray showed interval increase osteopenia in the 2nd metatarsal head and loss of cortical white line at the lateral margin of the 2nd metatarsal head raising question for osteomyelitis. Patient was started on IV vancomycin in the ER. He will be admitted for further management treatment of likely osteomyelitis. He was admitted to the hospitalist service with Vascular Surgery and Infectious Disease consultations for cellulitis and osteomyelitis of the right 2nd toe amputation site and 2nd metatarsal head. He was initially treated with vancomycin. Blood cultures negative. PICC was placed and he was started on 6 weeks of IV daptomycin, during which rosuvastatin should be held. He was d ischarged with VNA services for wound care and home infusion. He should follow up with ID in 2 weeks and Vascular Surgery in 2 weeks; also referred to Wound Care in 1 week. Time Attestation Discharge Coordination Time (in mins): 40 Quality: Safe Use of Opioids Does Pt have an Active Cancer Diagnosis on the Problem List?: No Quality: Stroke Does the patient have a stroke diagnosis?: No Physical Exam Vital Signs: Vital Signs: Last Vital Signs Temp 98.4 F 06/07/25 07:22 Pulse 83 06/07/25 07:22 Resp 16 06/07/25 07:22 BP 117/58 L 06/07/25 07:22 Pulse Ox 97 06/07/25 07:22 O2 Del Method Room Air 06/07/25 07:22 BMI result Body Mass Index 26.3 Gen: in no acute distress HEENT: sclera anicteric, moist mucus membranes Neck: supple Lungs: clear to auscultation bilaterally Heart: regular rate and rhythm, no murmurs Abd: soft, non-tender, non-distended Ext: R 2nd toe amputated, 1 cm ulcer at amputation site Skin: warm/well-perfused Neuro: alert and oriented x3, no focal findings Psych: appropriate affect DS: Data Data Completed and Pending Completed studies during hospitalization [Text1]: Laboratory Results WBC 9.2 X10*3/uL (4.8-10.8) 06/05/25 05:29 RBC 3.93 X10*6/uL (4.60-5.80) L 06/05/25 05:29 Hgb 10.8 g/dl (14.0-18.0) L 06/05/25 05:29 Hct 33.1 % (42.0-52.0) L 06/05/25 05:29 MCV 84.2 fL (80.0-98.0) 06/05/25 05:29 MCH 27.5 pg (27.0-33.0) 06/05/25 05:29 MCHC 32.6 g/dl (31.0-36.0) 06/05/25 05:29 RDW 15.3 % (11.0-16.0) 06/05/25 05:29 Plt Count 445 X10*3/uL (160-400) H 06/05/25 05:29 MPV 10.2 fL (9.4-12.4) 06/05/25 05:29 Immature Gran % (Auto) 0.6 % (0.0-0.4) H 06/04/25 11:16 Neut % (Auto) 72.8 % (45-73) 06/04/25 11:16 Lymph % (Auto) 14.6 % (20-40) L 06/04/25 11:16 [place] % (Auto) 10.5 % (2-11) 06/04/25 11:16 Eos % (Auto) 0.9 % (0-4) 06/04/25 11:16 Baso % (Auto) 0.6 % (0-2) 06/04/25 11:16 Lymph # (Auto) 1.9 X10*3/uL (1.2-4.9) 06/04/25 11:16 [place] # (Auto) 1.4 X10*3/uL (0.1-1.2) H 06/04/25 11:16 Eos # (Auto) 0.1 X10*3/uL (0.0-0.4) 06/04/25 11:16 Baso # (Auto) 0.1 X10*3/uL (0.0-0.2) 06/04/25 11:16 Abs Immat Gran (auto) 0.08 X10*3/uL (0.00-0.03) H 06/04/25 11:16 Absolute Neuts (auto) 9.5 x10*3/uL (2.0-8.3) H 06/04/25 11:16 Absolute Nucleated RBC 0.000 X10*3/uL (0.0-0.012) 06/05/25 05:29 Nucleated RBC % (auto) 0.0 /100WBC (0.0-0.2) 06/05/25 05:29 ESR 54 MM/HR (0-15) H 06/04/25 11:16 Hold Purple Top SEE NOTE 06/07/25 05:54 Sodium 133 mmol/L (135-145) L 06/05/25 05:29 Potassium 4.9 mmol/L (3.3-5.1) 06/05/25 05:29 Chloride 100 mmol/L (96-108) 06/05/25 05:29 Carbon Dioxide 26 mmol/L (22-29) 06/05/25 05:29 Anion Gap 12 (12-20) 06/05/25 05:29 BUN 18 mg/dL (9-16) H 06/05/25 05:29 Creatinine 1.17 mg/dL (0.5-1.4) 06/07/25 05:54 Estim Creat Clear Calc 62.1 06/07/25 05:54 Estimated GFR > 60 06/07/25 05:54 POC Glucose 212 mg/dL (60-115) H 06/07/25 11:07 Random Glucose 169 mg/dL (60-115) H 06/05/25 05:29 Lactic Acid 1.9 mmol/L (0.5-2.0) 06/04/25 11:16 Calcium 9.2 mg/dL (8.4-10.2) 06/05/25 05:29 Total Bilirubin 0.3 mg/dL (0.0-1.0) 06/04/25 11:16 Direct Bilirubin 0.2 mg/dL (0.0-0.5) 06/04/25 11:16 AST 26 U/L (5-37) 06/04/25 11:16 ALT 28 U/L (0-40) 06/04/25 11:16 Alkaline Phosphatase 64 U/L (39-117) 06/04/25 11:16 C-Reactive Protein 7.01 mg/dL (< or = 0.50) H 06/04/25 11:16 Total Protein 7.3 g/dL (6.5-8.0) 06/04/25 11:16 Albumin 4.1 g/dL (3.5-5.0) 06/04/25 11:16 Random Vancomycin 8.2 mcg/mL (15-20) L 06/06/25 11:02 Impressions Foot X-Ray 06/04/25 11:30 IMPRESSION: Interval amputation of the second digit of the right foot at the MTP joint. There is interval increase osteopenia in the second metatarsal head and loss of cortical white line at the lateral margin of the second metatarsal head raising question of osteomyelitis. Otherwise, stable exam. Electronically signed by: Marcus Sidhu MD 06/04/2025 11:52 AM EST Ankle X-Ray 06/04/25 11:35 IMPRESSION: Chronic changes with medial malleolar ORIF. No acute abnormality. Electronically signed by: Marcus Sidhu MD 06/04/2025 11:48 AM EST RP Venous Duplex 06/04/25 11:57 IMPRESSION: No evidence of acute deep venous thrombosis involving the right lower extremity. Multifocal coarse linear echogenic regions in the deep wall of the right femoral vein in the mid and distal thigh, and popliteal vein are most consistent with chronic changes from remote DVT. Electronically signed by: Marcus Sidhu MD 06/04/2025 12:30 PM EST RP Duplex Scan Lower Extremity Artery 06/05/25 10:06 IMPRESSION: Mild/moderate atherosclerotic disease with visible narrowing of the proximal profunda and distal SFA and monophasic flow. Electronically signed by: Gabriella Da Silva MD 06/05/2025 11:23 AM EST RP Discharge Plan Discharge Anticipated Discharge Date/Time: 06/07/25 11:54 Patient Disposition: Home Health Service Discharge Diagnosis: osteomyelitis Referrals: [facility] [Other] - 1 Week Referral Note: [facility]US[facility] FOR MEDICATION AND SUPPLIES [facility] - 1 Week Referral Note: HOME SERVICES FOR INTERMEDIATE- A NURSE WILL CALL YOU TO SET UP FIRST VISIT Joao Stanford MD [Primary Care Provider, Internal Medicine] - 1 Week Discharge Medications: New daptomycin 500 mg recon soln 700 mg IV Q24H Rx Instructions: administer over 30 mins Continued Entresto 24-26 mg tablet 1 tab PO BID 90 Days Qty: 180 3RF dapagliflozin propanediol [Farxiga] 10 mg tablet 10 mg PO DAILY 90 Days Qty: 90 3RF omeprazole 40 mg capsule,delayed release(DR/EC) 40 mg PO DAILY@0630 30 Days Qty: 30 3RF Rybelsus 3 mg tablet 3 mg PO DAILY 30 Days Qty: 30 3RF glipizide 5 mg tablet extended release 24hr 5 mg PO DAILY insulin lispro [Humalog KwikPen Insulin] 100 unit/mL insulin pen See Protocol subcut TIDAC Protocol: Insulin Correction Scale Less than or equal to 110 ---- Give (units): 0 111 to 150 Give (units): 0 151 to 200 Give (units): 2 201 to 250 Give (units): 4 251 to 300 Give (units): 6 301 to 350 Give (units): 8 Greater than 350 Give (units): 10 Call MD if Blood Glucose > : 350 trazodone 100 mg tablet 100 mg PO BEDTIME clotrimazole 1 % cream 1 appl topical BID PRN (Reason: Rash) oxycodone 15 mg tablet 15 mg PO Q6H PRN (Reason: pain) (DME) NovoFine Plus 32 gauge x 1/6 needle See Rx Instructions .Route Rx Instructions: As directed (DME) FreeStyle Dori 2 Sensor Kit See Rx Instructions .Route Rx Instructions: As directed metformin 1,000 mg tablet 1,000 mg PO BID (DME) blood pressure monitor Kit See Rx Instructions .ROUTE .MEDSUPPLY Qty: 1 0RF Rx Instructions: Automatic, Digital. Dx: I10. Daily As directed, 999 days/lifetime insulin degludec [Tresiba FlexTouch U-100] 100 unit/mL (3 mL) insulin pen See Rx Instructions .ROUTE .COMPLEX Patient Comments: Patient not sure how many units he last used. Rx Instructions: Pt does based on his sugar levels. metoprolol succinate 25 mg tablet extended release 24 hr 12.5 mg PO DAILY Held rosuvastatin 40 mg tablet 40 mg PO DAILY 90 Days Qty: 90 3RF Hold Instructions: Resume on 07/19/25. Discharge Orders: Discharge Order (Routine); Ordered 06/07/25 Ordered By: Renee Gray Diet: Diabetic diet Activity on Discharge: As tolerated Stand Alone Forms: Patient Portal Discharge page Print Language: Latvian Care Plan Goals: cure infection Health Concerns: osteomyelitis Plan of Treatment: daptomycin 700 mg once daily via PICC; weekly CBC and SCr while on daptomycin; end date of antibiotic 07/19/25; remove PICC at end of course; follow up with Dr Braxton from Infectious Disease in 2 weeks Wound care: cleanse with saline, gently pack with durafiber ag, cover with gauze/tape, change daily and PRN- pt prefers to change dressings himself. follow up with [facility] Wound Care in 1 week follow up with Dr Blanca from Vascular Surgery in 2 weeks Please follow up with your primary care doctor within 1 week. Return to the hospital if you experience recurrent or worsening symptoms. Assessment: See Discharge Summary.
--- NOTE | 2025-06-10 10:27 | P.CDIM_ITS ---
PROVIDER RESPONSE TEXT: To clarify, the appropriate diagnosis supported by the clinical indicators: Acute osteomyelitis QUERY TEXT: PHYSICIAN'S DOCUMENTATION REQUEST Date of Query: 06/06/2025 11:05 AM EST Patient Name: MARIE LUKE Admit Date: 06/04/2025 Dear Tony Denny DO, A review of the medical record indicates additional documentation may be needed. Please review below and update the documentation accordingly. . Clinical Indicators: Progress note 06/05/25 - Cellulitis/possible osteomyelitis Foot X-ray showing possible osteomyelitis to right 2nd toe amputation site. Inflammatory markers elevated. Vancomycin (2) ID - OM right metatarsal head He has potential for IV antibiotics for six weeks help suppress OM however and make dormant if vascular reveals good blood flow. Based on the above, please clarify in the Progress Notes further specificity regarding the acuity of the Osteomyelitis. Acute osteomyelitis Subacute osteomyelitis Chronic osteomyelitis Other (explain) Clinically unable to determine (explain) Thank you, Amanda Larson, CCS, CDIS Use of terms such as suspected, likely, concern for, or probable (associated with a specific diagnosis that is being evaluated, monitored, or treated as if it exists) are acceptable and can be coded in the inpatient setting, when documented at the time of discharge. Please use your independent medical judgment in providing your response. THIS QUERY IS PART OF THE PERMANENT MEDICAL RECORD
== END 2025-06-07 13:08 | disposition home health service (06) | DRG 565 ==
LOC: HO.ED 13:19 → HO.EDOVER 14:13 → HO.S3 14:22
PROVIDERS: Hospitalist; Physician Assistant Medical; Admitting Provider Nurse Practitioner Acute Care; Emergency Provider Student in an Organized Health Care Education/Training Program; PCP Family Medicine; Visit Provider Family Medicine
DX: T87.43 Infection of amputation stump, right lower extremity (principal); M86.171 Other acute osteomyelitis, right ankle and foot; I25.5 Ischemic cardiomyopathy; E11.51 Type 2 diabetes mellitus with diabetic peripheral angiopathy without gangrene; E87.6 Hypokalemia; N18.31 Chronic kidney disease, stage 3a; F17.210 Nicotine dependence, cigarettes, uncomplicated; E11.22 Type 2 diabetes mellitus with diabetic chronic kidney disease; L03.031 Cellulitis of right toe; Z71.6 Tobacco abuse counseling; Z79.4 Long term (current) use of insulin; Z79.84 Long term (current) use of oral hypoglycemic drugs; Z79.899 Other long term (current) drug therapy
CPT/HCPCS: 36415; 36573; 73610; 73630; 80048; 80076; 80202; 82565; 82947; 83605; 85025; 85027; 85652; 86140; 87040; 93926; 93971; 99285; C1751; J0878; J1644; J2270; J2543; J3373; J3374; J7120

== ENCOUNTER → 2025-06-04 11:06 | Outpatient (BNV) | payer OTHER, SELFPAY | PROVIDERS: PCP Family Medicine; Visit Provider Radiology Diagnostic Radiology | DX: R60.0 Localized edema (principal); Z03.89 Encounter for observation for other suspected diseases and conditions ruled out; M85.88 Other specified disorders of bone density and structure, other site; Z89.421 Acquired absence of other right toe(s) | CPT/HCPCS: 73610; 73630; 93971 ==

== ENCOUNTER 2025-06-04 13:36 | Outpatient (BNV) | payer OTHER, SELFPAY | END 2025-06-05 10:06 | PROVIDERS: Admitting Provider Nurse Practitioner Acute Care; Emergency Provider Student in an Organized Health Care Education/Training Program; PCP Family Medicine; Visit Provider Radiology Diagnostic Radiology | DX: L97.919 Non-pressure chronic ulcer of unspecified part of right lower leg with unspecified severity (principal); I70.201 Unspecified atherosclerosis of native arteries of extremities, right leg | CPT/HCPCS: 93926 ==

== ENCOUNTER → 2025-06-04 13:36 | Outpatient (BNV) | payer OTHER, SELFPAY | PROVIDERS: Admitting Provider Nurse Practitioner Acute Care; Emergency Provider Student in an Organized Health Care Education/Training Program; PCP Family Medicine; Visit Provider Surgery Vascular Surgery | DX: I73.9 Peripheral vascular disease, unspecified (principal) | CPT/HCPCS: 99024 ==

== ENCOUNTER → 2025-06-04 13:36 | Outpatient (BNV) | payer OTHER, SELFPAY | PROVIDERS: Admitting Provider Nurse Practitioner Acute Care; Emergency Provider Student in an Organized Health Care Education/Training Program; PCP Family Medicine; Visit Provider Internal Medicine | DX: M86.9 Osteomyelitis, unspecified (principal) | CPT/HCPCS: 99232 ==

== ENCOUNTER → 2025-06-04 13:36 | Outpatient (BNV) | payer OTHER, SELFPAY | PROVIDERS: Admitting Provider Nurse Practitioner Acute Care; Emergency Provider Student in an Organized Health Care Education/Training Program; PCP Family Medicine; Visit Provider Nurse Practitioner Acute Care | DX: M86.9 Osteomyelitis, unspecified (principal); E13.9 Other specified diabetes mellitus without complications; I65.29 Occlusion and stenosis of unspecified carotid artery | CPT/HCPCS: 99223; 99233 ==

== ENCOUNTER 2025-06-14 10:48 | Outpatient (AMB) | payer OTHER, SELFPAY ==
--- NOTE | 2025-06-14 10:57 | A.OFFVIS_ITS ---
Intake Visit Reasons: 3w wound check Intake Note: Patient presents for 3 week wound check. Patient states he has pain in his foot. Patient has gauze on amp site, changes dressing twice a day. Accompanied by: Self / Same As Patient Allergies No Known Allergies Allergy (Verified 06/14/25 10:58) HPI HPI 3w wound check: Details: This is a 73-year-old gentleman who originally had seen us for diabetic foot underwent diagnostic angiogram on 03/26/2025 and subsequently on 03/29/2025 when underwent right 2nd toe amputation. He had been treated has been doing fairly well around Thanksgiving ended up in the hospital was treated with IV antibiotics and was subsequently discharged. Came to the office complaining of increased pain and drainage from the foot. He has been fairly compliant with his wound care regimen and it continues to progress. He reports that there was a foul odor now associated with the wound. [facility] Medical History Ischemic cardiomyopathy PAD (peripheral artery disease) Diabetic ulcer of right foot Diabetes Osteomyelitis of second toe of right foot Back pain Smoker Insomnia Amputated toe of left foot Anemia Low testosterone Hyperlipidemia Hypertension Carotid atherosclerosis Erectile dysfunction associated with type 2 diabetes mellitus Lumbar degenerative disc disease Gall bladder disease Finding of floating rib Spine disorder Pacemaker Stroke Diabetes 1.5, managed as type 2 Surgical History History of surgery History of surgery History of appendectomy Social History Household Members: Other Household Members Other:: roomate Both parents involved: No Caregiver staying overnight: No Housing: Apartment Are you a primary post anesthesia care unit nurse to a significant other at home: No Do you presently have visiting nurse or other home services: No 75 years or older and lives alone: No Alcohol intake: current Alcohol intake frequency: does not drink Alcohol type: other Comment: single shaun angelo Patient Tobacco Use Status: Current everyday Tobacco user Tobacco use type: Cigarette Cigarette Packs Per Day: 0.75 Cigarettes Per Day: 15.0 Years Smoked: 45 e-Cigarette/Vaping Use: Never Used Second Hand Smoke Exposure: No Substance Use Type: Marijuana Special yamilex needs: No service: No Current occupational status: retired Cognitive needs: No Hearing needs: No Vision needs: No Review of Systems Const All systems reviewed & are unremarkable except as noted in HPI and below Reports no additional complaints ENT Reports Normal hearing present Card Denies chest pain, Denies chest pain at rest, Denies chest pain with activity and Denies pedal edema Resp Denies cough GI Denies abdominal pain Musc Denies abnormal gait, Denies muscle cramps and Denies radiating pain into limb Skin/Breast Denies skin ulcer and Denies wounds Neuro Reports Normal hearing present and Denies abnormal gait Psych Reports no additional complaints Physical Exam Const General: cooperative, healthy appearing and comfortable Orientation/consciousness: oriented to person, oriented to place and oriented to time HEENT Head: Yes normal to inspection Neck Neck: Yes normal visual inspection Carotids: no bruits Chest Chest palpation & inspection: normal inspection of the chest Resp Effort & Inspection: normal respiratory effort and able to speak in complete sentences Auscultation: clear to auscultation bilaterally, no crackles, no rales, no rhonchi and no wheezes Cardio Other: Right side DP signals Rate: regular rate Rhythm: regular rhythm Heart sounds: S1 normal heart sound present and S2 normal heart sound present Bruits: no carotid bruits Peripheral pulses: Peripheral pulses 2+ throughout GI Inspection: Yes normal to inspection Skin Other: Amputation site nonhealing a proximally 2 cm in diameter ulceration. - purulent drainage Wounds: amputation site Hair: normal Neuro General: oriented to person, oriented to place and oriented to time Cranial nerves: Yes CN's II-XII intact bilaterally and Yes Normal hearing present Cognition (Neuro): normal cognition Motor exam (neuro): 5/5 motor strength present throughout Extrem Other: venous exam: No significant superficial varicosities or spider telangiectasias, minimal edema General: No clubbing, No cyanosis and No edema Psych Appearance: grossly normal Mental Status: mental status grossly normal Speech and movement: Normal speech and movement present Assessment & Plan Assessment & Plan (1) PAD (peripheral artery disease): Comment: 03/26/2025 - diagnostic angiogram 03/29/2025 - right 2nd toe amputation Code(s): I73.9 - Peripheral vascular disease, unspecified Category: Medical Plan: In short patient has nonhealing right foot ulcer. Concern here is it is not healing and continues to progress. He now has purulent drainage which I was able to express. There is a foul odor associated with this. He will require further amputation. I requested the patient go to the emergency room for evaluation and admission. He can be better worked up as an inpatient to better control the infection and better pain control. He was in agreement and said he would go later this afternoon once he took care of a few issues at home. He may require further resection and there is concern of the 3rd toe now as well. Thank you for allowing us to assist in his care. If there are any questions or concerns please do not hesitate to contact us. Coding Level of Care Code Est Pt Level 4 (97441) Complex visit Add On G2211 Diagnoses PAD (peripheral artery disease) I73.9
--- OUTSIDE RECORDS SUMMARY | 2025-06-14 13:38 | XMS_ITS | Patient Health Record ---
Author Organization [facility] Address [address] [facility] [address] [place] [address] Care Team Providers Care Pasteurizing Supervisor Name Role Phone José Frazier Primary Care Provider Unavailab Hernadez JAYLA Unavailable [phone] Allergies No Known Allergies Reason For Referral [...] 1MG PER DOSE (1X4MG PEN) *Reorder from [employer] for eRx and Interaction Alerts* Unknown ZTlido [...] W/U Status Risk Notes Problem Lumbar radiculopathy (817238921) Lumbar radiculopathy (M54.16) Active confirmed Problem Lumbosacral spondylosis without myelopathy (23901557) Other spondylosis, lumbar region (M47.896) Active confirmed Problem Lumbosacral spondylosis without myelopathy (26148399) Other spondylosis, lumbosacral region (M47.897) Active confirmed Problem Spinal stenosis of lumbar region (46865238) Spinal stenosis, lumbosacral region (M48.07) Active confirmed Problem Disorder of lumbar disc (214676380) Other intervertebral disc disorders, lumbar region (M51.86) Active confirmed Problem Disorder of lumbosacral intervertebral disc (308964234) Other intervertebral disc disorders, lumbosacral region (M51.87) Active confirmed Problem Spasm of back muscles (643074335) Muscle spasm of back (M62.830) Active confirmed Problem Spasm (31117473) Other muscle spasm (M62.838) Active confirmed Problem Muscle pain (62004243) Myalgia, other site (M79.18) Active confirmed Problem Low back pain (738554702) Low back pain, unspecified (M54.50) Active confirmed Problem Lumbosacral spondylosis without myelopathy (77187065) Spondylosis w/o myelopathy or radiculopathy, lumbar region (M47.816) Active confirmed Problem Lumbosacral spondylosis without myelopathy (84022912) Spondyls w/o myelopathy or radiculopathy, lumbosacr region (M47.817) Active confirmed Plan Of Treatment Pending Test Test Name Order Date 07119 Lumbar/Caudal WILFRID 05/04/2022 Future Test Test Name Order Date 41523 Lumbar/Caudal WILFRID 08/05/2022 Insurance Providers Payer Name Payer Address Payer Phone Subscriber Number Group Number Insured Name Patient Relationship to Insured Coverage Start Date Coverage End Date [facility] DUAL COMP MDCR HMO [address] [address] [place] [address] [id number] Florentin Begum Self - patient is the insured 3 [facility] -[facility] [place] [address] [address] [place], [place] [id number] Florentin Ni Self - patient is the insured 3 Medical (General) History Medical History History ICD Code diabetes stroke Surgical History Surgery Date(Month/Year) Appendectomy
--- OUTSIDE RECORDS SUMMARY | 2025-06-14 13:38 | XMS_ITS | Patient Health Record ---
Author Organization [facility] Address [address] [place] [address] Care Team Providers Care Mine Geologist Name Role Phone José Frazier MD Primary Care Provider Luis Pan Unavailable [phone] Allergies No Known Allergies Reason For Referral No Information Medications Medication SIG (Take, Route, Frequency, Duration) Notes Start Date End Date Status Omeprazole 40 MG 1 capsule 30 minutes before morning meal Orally Once a day; Duration: 90 days Active Tresiba FlexTouch 100 UNIT/ML inject 30 units Subcutaneous daily; Duration: 100 days Active Pen [place] 32G X 6 MM use with insulin [...] Status W/U Status Risk Notes Problem Hypercalcemia (52721057) Hypercalcemia (E83.52) Active confirmed Problem 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 mellitus (842398552) Type 2 diabetes mellitus with other diabetic neurological complication (E11.49) Active confirmed Problem Vitamin D deficiency (20815977) Vitamin D deficiency (E55.9) Active confirmed Problem Dyslipidemia (391613571) Dyslipidemia (E78.5) Active confirmed Problem Hyperglycemia due to type 2 diabetes mellitus (985343999706633) Type 2 diabetes mellitus with hyperglycemia (E11.65) Active confirmed Problem Essential hypertension (31218425) Essential (primary) hypertension (I10) Active confirmed Problem Disorder of calcium metabolism (37988756) 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 Problem Abnormal result, function study of peripheral nervous system / special senses (211321085) Abnormal results of function studies of other [...] Insured Coverage Start Date Coverage End Date [facility] DUAL COMPLETE PPO [employer] [address] [address] [place] [address] [id number] [employer]MB Florentin Ni Self - patient is the insured Medical (General) History Medical History History ICD Code Diabetes HTN Hyperlipidemia GERD Surgical History Surgery Date(Month/Year) Screws right ankle Toe amputation left foot Appendectomy 06/2020 Hospitalization History Reason Date(Month/Year) Appendectomy 06/2020
--- OUTSIDE RECORDS SUMMARY | 2025-06-14 13:38 | XMS_ITS ---
Continuity of Care Document (CCD) Created on: June 14, 2025 Florentin Ni External Reference #: [id number] : 1960 Sex: Male Author Organization [facility] [address] [place] [address] Phone [phone] Problems Active Problems Provider Date Type 2 [...] SIG Qnty Indications Order ing Provider Date Freestyle Dori 2 Plus/Sensor/Flash Glucose Monitor SystemMisc 1 sensor to skin every fifteen days as directed dx: e11.9 6units E11.9 Sarah Li NP 06/05/2025 Leyljugt0mr/0.5ML Solution Auto-Inject inject 5 mg subcutaneously once weekly 2ml Sarah Li NP 11/15/2024 Pen Ehuyepi33N X 4 mm Misc use one needle with insulin tacos, use three times a day 100units Mona Muhammad M.D. 08/16/2024 Freestyle Dori 2/[place]/Flash Glucose Monitoring Rbwatg3Uuclyk Device use as directed with sensors 1units E11Nakia Muhammad M.D. 09/20/2023 Freestyle Dori 2/Sensor/Flash Glucose Monitoring Beehqu7Avtunt Misc 1 sensor to skin every fourteen days as directed dx: e11.9 3units E11.9 Sarah Li NP 09/20/2023 Ztlido1.8% Patches 1 patch daily Unknown Aspirin 8181mg Tablets DR 1 by mouth every day Unknown Ketoconazole2% Cream Unknown Accu-Chek GuideStrips Unknown Ebszxoi56qf Tablets Take 1 tablet by mouth daily 90tabs Mona Muhammad M.D. Tresiba Pyxeygrwp080Abne/ML Solution Pen-Inject Administer 30 Units Under The Skin Daily 30units E11.21 Mona Muhammad M.D. Hnvocwhyvx85kg Capsules DR Take 1 capsule by mouth daily 90caps Mona Muhammad M.D. Metformin [id number] Tablets Take 1 Tablet By Mouth Twice Daily 180tabs Sarah Li NP Accu-Chek GuideStrips Unknown Rosuvastatin Lagqljv98fy Tablets Take 1 tablet by mouth daily Unknown Losartan Slssvhvxv56ct Tablets Take 1 tablet by mouth daily Unknown Trazodone MXI479av Tablets Take 1 tablet by mouth at [...] 09/17/2023 Inhouse Hemoglobin A1c 8.2% 1 Test(s) 468971-Ehynd terone was developed and its performance characteristics determined by [facility]. It has not been cleared or approved by the Food and Drug Administration. Test(s) 264689-Tjdhg Activity, Plasma was developed and its performance characteristics determined by [facility]. It has not been cleared or approved by the Food and Drug Administration. 2 Normal: 0 - 29 Moderately increased: 30 - 300 Severely increased: >300 Procedures Date Code Description Status 12/29/2023 46467 Glucose Monitoring Interpeta tion And Report Completed Medical Devices Description No Information Available Encounters Type Date Location Provider Dx Diagnosis Office Visit 03/19/2025 1:00p Main Office Sarah Li NP E11.9 Type 2 diabetes mellitus without complications I10 Essential (primary) hypertension E78.5 Hyperlipidemia, unsp ecified Assessments Date Code Description Provider 03/19/2025 E11.9 Type 2 diabetes mellitus wit hout complications Sarah iL NP 03/19/2025 I10 Essential (primary) hyperten neno [...] [facility] [address] [place] [address] [phone]
== END 2025-06-14 11:30 | disposition home or self-care (01) ==
LOC: HO.HVS 10:49
PROVIDERS: PCP Family Medicine; Visit Provider Surgery Vascular Surgery
DX: I73.9 Peripheral vascular disease, unspecified (principal)
CPT/HCPCS: 99024

== ENCOUNTER 2025-06-14 15:20 | Inpatient (IN) | payer OTHER, SELFPAY ==
--- NOTE | ~2025-06-14 | XR_ITS ---
EXAMINATION: XR CHEST CLINICAL INFORMATION: PICC line placement COMPARISON: None available. TECHNIQUE: Single portable AP view of the chest was obtained. FINDINGS: Right-sided PICC line tip ends at the SVC/innominate junction level. Left-sided pacemaker demonstrates 2 intact electrode leads in the right heart chambers. Pulmonary reticular pattern. No gross pleural effusion or pneumothorax. Prominence of the interstitial lung markings. Cardiomediastinal silhouette size is normal. Calcified plaque thoracic aortic arch. Multilevel thoracic spondylosis. XR/XR chest 1V IMPRESSION: Right-sided PICC line tip ends at the SVC/innominate junction level. Concerning acute on chronic airspace disease. Electronically signed by: Emmanuel Oliveros MD 06/15/2025 08:44 AM [facility]
--- NOTE | ~2025-06-14 | US_ITS ---
EXAMINATION: US TRIPLEX LOWER EXTREMITY, RIGHT CLINICAL INFORMATION: Right leg edema. COMPARISON: None available. TECHNIQUE: Color-flow triplex imaging with spectral analysis and compression Doppler were performed on the right lower extremity. FINDINGS: Respiratory variation, normal compression and augmented flow are noted throughout the right lower extremity. The visualized common femoral vein, superficial femoral vein, profunda femoral vein, popliteal vein and midcalf posterior tibial venous segments show no evidence of deep venous thrombosis. The peroneal vein could not be well visualized. There is no Flower's cyst. Reactive appearing lymph nodes present in the right groin. US/US venous duplex LE RT IMPRESSION: No evidence of deep venous thrombosis involving the right lower extremity. Electronically signed by: Musa Cota MD 06/19/2025 04:15 PM [facility]
--- NOTE | ~2025-06-14 | XR_ITS ---
EXAMINATION: XR FOOT, RIGHT CLINICAL INFORMATION: Evaluate for osteomyelitits COMPARISON: 06/04/2025 TECHNIQUE: AP, lateral, and oblique views of the right foot. FINDINGS: Again seen is amputation of the second toe. There are increasing destructive changes involving the neck greater than the head of the second metatarsal consistent with osteomyelitis. There is increasing osteopenia and loss of the cortical white line involving the lateral aspect of the head and neck of the first metatarsal. There is cortical destruction and osteopenia involving the medial base of the third proximal phalanx and head third metatarsal. There is also increasing osteopenia in the medial and the fourth metatarsal with near complete loss of the cortical white line. The cortex of the medial base of the fourth proximal phalanx is also more indistinct than previously. There are no other interval changes. XR/XR foot RT min 3V IMPRESSION: Aggressive destructive changes are present in the head and neck of the second metatarsal consistent with progression of osteomyelitis. There is also suspicion for involvement of the lateral first metatarsal head and neck, as well as the medial base of the third and fourth proximal phalanges and heads of the third and fourth metatarsals. In the appropriate clinical setting, inflammatory arthropathy could be in the differential. Electronically signed by: Marcus Sidhu MD 06/14/2025 04:12 PM [facility]
[2025-06-14 15:27] VITALS: BP 118/58; PULSE 104; RESP 18; TEMP 36.3; O2SAT 98; BMI 27.1
--- NOTE | 2025-06-14 15:37 | ED_ITS ---
HPI - General Adult General Chief complaint: Extremity Problem Stated complaint: RT Foot infection (amputation) Time Seen by Provider: 06/14/25 17:49 Source: patient, RN notes reviewed and old records reviewed Mode of arrival: ambulatory Limitations: no limitations History of Present Illness ED Provider: Kelsea HPI narrative: 64-year-old male presents for evaluation of ?right foot osteomyelitis. ? He is currently receiving a 6 weeks' course of daptomycin which started last week. His last dose was at noon today. He saw Dr. Blanca, vascular surgery in the office this morning and it was felt the patient has nonhealing wounds that are worsening with worsening osteomyelitis in the patient should be admitted for additional amputation. The patient has a previous right 2nd toe amputation. He reports worsening pain pain Denies fevers or chills. No other complaints or concerns at this time pain The patient is a diabetic Related Data Home Medications ?Medication ?Instructions ?Recorded ?Confirmed flash glucose sensor (FreeStyle 11/24/23 06/08/25 Dori 2 Sensor kit) pen needle, diabetic 32 gauge x 11/24/23 06/08/2507/17 (NovoFine Plus) metformin 1,000 mg tablet 1,000 mg PO BID 03/20/2411/03 insulin degludec 100 unit/mL (3 15 - 20 unit subcut BE DTIME 03/07/25 06/14/25 mL) subcutaneous pen (Tresiba FlexTouch U-100 insulin) metoprolol succinate 25 mg 12.5 mg PO DAILY 03/22/25 1 08/15/24 tablet,extended release 24 hr glipizide 5 mg tablet, extended 5 mg PO DAILY 03/23/25 06/14/25 release 24 hr clotrimazole 1 % topical cream 1 appl topical BID PRN Rash 06/04/25 06/14/25 insulin lispro 100 unit/mL See Protocol subcut TIDAC 1 08/04/24 06/14/25 subcutaneous pen (Humalog KwikPen (U-100) Insulin) trazodone 100 mg tablet 100 mg PO BEDTIME 06/04/25 1 08/15/24 Previous Rx's ?Medication ?Instructions ?Recorded rosuvastatin 40 mg tablet 40 mg PO DAILY 90 days #90 t abs 09/18/24 Held on 06/07/25. Instructions: Resume on 07/19/25. dapagliflozin propanediol 10 mg 10 mg PO DAILY 90 days #90 tabs 12/20/24 tablet (Farxiga) sacubitril 24 mg-valsartan 26 mg 1 tab PO BID 90 days #180 tabs 12/20/24 tablet (Entresto) blood pressure monitor #1 ea 01/23/25 omeprazole 40 mg capsule,delayed 40 mg PO DAILY@0630 3 0 days #30 04/19/25 release caps semaglutide 3 mg tablet (Rybelsus) 3 mg PO DAILY 30 da ys #30 tabs 05/24/25 daptomycin 500 mg intravenous 700 mg IV Q24H 06/07/25 solution oxycodone 5 mg tablet 5 mg PO Q8H PRN pain, severe #18 06/07/25 tabs Allergies Allergy/AdvReac Type Severity Reaction Status Date / Time No Known Allergies Allergy Verified 06/14/25 15:32 [facility] Past Medical History Medical History Ischemic cardiomyopathy PAD (peripheral artery disease) Diabetic ulcer of right foot Diabetes Osteomyelitis of second toe of right foot Back pain Smoker Insomnia Amputated toe of left foot Anemia Low testosterone Hyperlipidemia Hypertension Carotid atherosclerosis Erectile dysfunction associated with type 2 diabetes mellitus Lumbar degenerative disc disease Gall bladder disease Finding of floating rib Spine disorder Pacemaker Stroke Diabetes 1.5, managed as type 2 Surgical History History of surgery History of surgery History of appendectomy Social History Social History Household Members: Other Household Members Other:: roomate Housing: Apartment Are you a primary campground caretaker to a significant other at home: No Do you presently have visiting nurse or other home services: No Alcohol intake: current Alcohol intake frequency: does not drink Alcohol type: other Comment: single malt scotch Patient Tobacco Use Status: Current everyday Tobacco user Tobacco use type: Cigarette Cigarette Packs Per Day: 0.75 Cigarettes Per Day: 15.0 Years Smoked: 45 e-Cigarette/Vaping Use: Never Used Second Hand Smoke Exposure: No Substance Use Type: Marijuana Special yamilex needs: No Advance Directives: No Advance Directives Information Provided: No service: No Current occupational status: retired Cognitive needs: No Hearing needs: No Vision needs: No Physical Exam ED Vital Signs: Vital Signs - 24 hr 06/14/25 15:27 06/14/25 17:46 Temperature 97.4 F 97.9 F Pulse Rate 104 H 90 Respiratory Rate 18 18 Blood Pressure 118/58 L 152/68 H Pulse Oximetry 98 100 Oxygen Delivery Method Room Air Room Air BMI result Body Mass Index 27.1 Const General: healthy appearing, comfortable, no acute distress, alert and awake Nutritional Appearance: well nourished Orientation/consciousness: patient oriented x3 HENMT Head: Yes normocephalic and Yes atraumatic Eyes Eyelids: Yes eyelids normal Conjunctivae: conjunctivae normal Sclerae: sclerae normal Corneas: corneas normal Pupils: Equal, round and reactive pupils present EOM: EOMs intact bilaterally Neck Neck: Yes full ROM Resp Effort & Inspection: normal respiratory effort, able to speak in complete sentences and not labored Skin General skin exam: elasticity normal Neuro General: patient oriented x3 Cranial nerves: Yes Equal, round and reactive pupils present and Yes Bilaterally intact EOM present Cognition (Neuro): normal cognition Extrem Other: The patient has previous amputation of the right 2nd toe. There is significant erythema with purulence in her open wound to the stump. There is significant foul-smelling drainage Course Course Course Narrative: RME: 64 year male status post surgery on right toe presents to the ED for worsening toe infection and recommended by vascular to come to the ED for IV antibiotics and possible more amputation of toes. X-ray labs ordered Medications Administered Generic Name Dose Route Start Last Admin Trade Name Freq PRN Reason Stop Dose Admin Atorvastatin Calcium 80 mg 06/15/25 09:00 06/15/25 08:24 Atorvastatin Calcium 80 Mg Tablet PO 80 mg DAILY IRIS Administration Heparin Sodium (Porcine) 5,000 unit 06/14/25 19:45 06/15/25 08:24 Heparin Sodium,Porcine 5,000 Unit/Ml Vial SUBCUT 5,000 unit Q12H IRIS Administration Hydromorphone HCl 1 mg 06/15/25 07:22 06/15/25 11:06 Hydromorphone Hcl 1 Mg/Ml Syringe IVPUSH 1 mg Q4H PRN Administration Pain, Moderate(Pain Scale 4-6) Protocol Hydromorphone HCl 2 mg 06/15/25 07:22 06/15/25 12:51 Hydromorphone Hcl 1 Mg/Ml Syringe IVPUSH 2 mg Q4H PRN Administration Pain, Severe (Pain Scale 7-10) Protocol Lactated Ringer's 1,000 mls @ 100 mls/hr 06/14/25 19:45 06/15/25 05:32 Lr IVCONT 100 mls/hr .Q10H IRIS Administration Piperacillin Sod/Tazobactam 100 mls @ 200 mls/hr 06/14/25 20:00 06/15/25 08:53 Sod 4.5 gm/ Sodium Chloride IV Infused Q6H IRIS Infusion Vancomycin HCl 750 mg/ Sodium 265 mls @ 265 mls/hr 06/15/25 09:00 06/15/25 09:55 Chloride IV Infused Q12H IRIS Infusion Insulin Glargine 10 unit 06/14/25 21:00 06/14/25 21:28 Insulin Glargine,Hum.Rec.Anlog 100 Unit/Ml 10 Ml Vial SUBCUT 10 unit BEDTIME IRIS Administration Insulin Human Lispro 0 unit 06/14/25 21:00 06/15/25 12:51 Insulin Lispro 100 Unit/Ml 3 Ml Vial SUBCUT Not Given QIDACHS [facility] Protocol Metoprolol Succinate 12.5 mg 06/15/25 09:00 06/15/25 10:23 Metoprolol Succinate Er 12.5 Mg Halftab.Er.24h PO 12.5 mg DAILY IRIS Administration Protocol Pantoprazole Sodium 40 mg 06/15/25 06:30 06/15/25 06:27 Pantoprazole Sodium 40 Mg/10 Ml Vial IVPUSH 40 mg DAILY@0630 [facility] Administration Sacubitril/Valsartan 1 tab 06/15/25 09:00 06/15/25 10:23 Sacubitril/Valsartan 1 Tab Tablet PO 1 tab BID [facility] Administration Protocol Sodium Chloride 3 ml 06/15/25 00:00 06/15/25 08:23 0.9 % Sodium Chloride Flush 3 Ml Syringe IVFLUSH Not Given QSHIFT [facility] Discontinued Medications Generic Name Dose Route Start Last Admin Trade Name Freq PRN Reason Stop Dose Admin Empagliflozin 10 mg 06/15/25 09:00 06/15/25 08:24 Empagliflozin 10 Mg Tablet PO 10 mg DAILY IRIS Administration Sodium Chloride 1,000 mls @ 999 mls/hr 06/14/25 18:15 06/14/25 19:22 Ns IV 06/14/25 19:15 Infused .Q1H1M IRIS Infusion Lactated Ringer's 2,502 mls @ 2,502 mls/hr 06/14/25 19:40 06/14/25 20:59 Lr 30 ml/kg infuse over 1 hr (2502 ml) 06/14/25 20:39 Infused IV Infusion .Q1H ONE Vancomycin HCl 2,000 mg in 500 mls @ 250 mls/hr 06/14/25 20:00 06/14/25 22:48 Vancomycin/Ns IV 06/14/25 21:59 Infused ONCE ONE Infusion Morphine Sulfate 4 mg 06/14/25 18:12 06/14/25 18:21 Morphine Sulfate 4 Mg/Ml Cartridge IVPUSH 06/14/25 18:13 4 mg ONCE ONE Administration Protocol Morphine Sulfate 2 mg 06/14/25 22:40 06/15/25 07:24 Morphine Sulfate 4 Mg/Ml Cartridge IVPUSH 2 mg Q4H PRN Administration Breakthrough Pain Protocol Ondansetron HCl 4 mg 06/14/25 18:13 06/14/25 18:21 Ondansetron Hcl 4 Mg/2 Ml Vial IVPUSH 06/14/25 18:14 4 mg ONCE ONE Administration Oxycodone HCl 5 mg 06/14/25 19:31 06/15/25 05:32 Oxycodone Hcl Immed Release 5 Mg Tablet PO 5 mg Q4H PRN Administration Pain, Moderate(Pain Scale 4-6) Medical Decision Making Medical Decision Making MDM Narrative: 64-year-old male presents for evaluation of osteomyelitis. His x-ray confirms worsening osteomyelitis of the right foot. I read the patient's outpatient vascular surgery report from this morning and there was plan to have him admitted for further evaluation and management and likely additional amputation. The patient does not meet sepsis criteria his vital signs are stable. He does have a high leukocytosis in his lactate is also within normal limits. He received daptomycin at noon today and this is a relatively new prescription as he was previously on vancomycin. I do not see any indication to change his antibiotic regimen at this time. He will be given IV fluids, pain control and we will discuss with the hospitalist Differential Diagnosis Differential Diagnoses: The differential diagnosis associated with the presentation includes Osteomyelitis Cellulitis Diabetic wound Ulcer Admission/Observation Consideration of admission/observation: Escalation of care including admission/observation considered Consult Healthcare Provider Management of the patient was discussed with: Hospitalist and [employer] Lab Data MDM Lab Attestation statement: I reviewed the patient's lab results. The patient has a leukocytosis with a left shift. The patient has a mild anemia which is consistent with his baseline. Slightly low sodium at 1:34 a.m. which she will be treated with IV fluids. The patient is a known diabetic with a glucose of 329. No evidence of DKA 06/15/25 03:49 06/15/25 03:49 Labs: Lab Results 06/14/25 06/14/25 Range/Units 15:56 15:57 WBC 16.7 H (4.8-10.8) X10*3/uL RBC 3.51 L (4.60-5.80) X10*6/uL Hgb 9.4 L (14.0-18.0) g/dl Hct 28.6 L (42.0-52.0) % MCV 81.5 (80.0-98.0) fL MCH 26.8 L (27.0-33.0) pg MCHC 32.9 (31.0-36.0) g/dl RDW 14.6 (11.0-16.0) % Plt Count 528 H (160-400) X10*3/uL MPV 9.8 (9.4-12.4) fL Immature Gran % (Auto) 0.7 H (0.0-0.4) % Neut % (Auto) 79.8 H (45-73) % Lymph % (Auto) 11.2 L (20-40) % [place] % (Auto) 7.4 (2-11) % Eos % (Auto) 0.5 (0-4) % Baso % (Auto) 0.4 (0-2) % Lymph # (Auto) 1.9 (1.2-4.9) X10*3/uL [place] # (Auto) 1.2 (0.1-1.2) X10*3/uL Eos # (Auto) 0.1 (0.0-0.4) X10*3/uL Baso # (Auto) 0.1 (0.0-0.2) X10*3/uL Abs Immat Gran (auto) 0.11 H (0.00-0.03) X10*3/uL Absolute Neuts (auto) 13.4 H (2.0-8.3) x10*3/uL Absolute Nucleated RBC 0.000 (0.0-0.012) X10*3/uL Nucleated RBC % (auto) 0.0 (0.0-0.2) /100WBC ESR 64 H (0-15) MM/HR Sodium 134 L (135-145) mmol/L Potassium 4.9 (3.3-5.1) mmol/L Chloride 101 (96-108) mmol/L Carbon Dioxide 25 (22-29) mmol/L Anion Gap 13 (12-20) BUN 21 H (9-16) mg/dL Creatinine 1.15 (0.5-1.4) mg/dL Estim Creat Clear Calc 63.1 Estimated GFR > 60 Random Glucose 329 H (60-115) mg/dL Lactic Acid 1.2 (0.5-2.0) mmol/L Calcium 9.1 (8.4-10.2) mg/dL Total Bilirubin 0.3 (0.0-1.0) mg/dL AST 34 (5-37) U/L ALT 27 (0-40) U/L Alkaline Phosphatase 91 (39-117) U/L C-Reactive Protein 6.60 H (< or = 0.50) mg/dL Total Protein 6.7 (6.5-8.0) g/dL Albumin 3.6 (3.5-5.0) g/dL Discharge Plan Discharge Clinical Impression: Acute osteomyelitis of right foot Patient Disposition: Admitted As Inpatient Interventions: Admission Worksheet (ED) Last Done: 06/15/25 07:54
[2025-06-14 16:02] LABS: MANUAL DIFF FLAG NO
[2025-06-14 16:04] LABS: Hematocrit 28.6 % (42.0-52.0); Hemoglobin 9.4 g/dl (14.0-18.0); Imm Gran Abs Auto 0.11 X10*3/uL (0.00-0.03); Imm Gran Pct Auto 0.7 % (0.0-0.4); Lymphocytes Absolute Auto 1.9 X10*3/uL (1.2-4.9); Mean Corpuscular HGB Conc 32.9 g/dl (31.0-36.0); Mean Corpuscular Hemoglobin 26.8 pg (27.0-33.0); Mean Corpuscular Volume 81.5 fL (80.0-98.0); NRBC Abs Auto 0.000 X10*3/uL (0.0-0.012); NRBC Pct Auto 0.0 /100WBC (0.0-0.2); Platelet Count 528 X10*3/uL (160-400); Red Blood Count 3.51 X10*6/uL (4.60-5.80); White Blood Count 16.7 X10*3/uL (4.8-10.8)
[2025-06-14 16:18] LABS: Alanine Aminotransferase 27 U/L (0-40); Albumin Level 3.6 g/dL (3.5-5.0); Alkaline Phosphatase 91 U/L (39-117); Anion Gap 13 (12-20); Aspartate Amino Transferase 34 U/L (5-37); Blood Urea Nitrogen 21 mg/dL (9-16); Calcium 9.1 mg/dL (8.4-10.2); Carbon Dioxide 25 mmol/L (22-29); Chloride 101 mmol/L (96-108); Creatinine Clr Calc Pharmacy 63.1; Estimated Glomerular Filt Rate > 60; Potassium 4.9 mmol/L (3.3-5.1); Sodium 134 mmol/L (135-145); Total Protein 6.7 g/dL (6.5-8.0)
[2025-06-14 17:19] LABS: Erythrocyte Sedimentation Rate 64 MM/HR (0-15)
[2025-06-14 17:46] VITALS: BP 152/68; PULSE 90; RESP 18; TEMP 36.6; O2SAT 100
--- NOTE | 2025-06-14 19:51 | P.HPHOSP_ITS ---
History of Present Illness Date of Service: 06/14/25 Chief Complaint: right foot infection 64-year-old male with past medical history is significant for osteomyelitis, CKD stage 3A, T2 dm, ischemic cardiomyopathy who was sent to hospital from vascular surgery consult earlier today for worsening right foot pain and drainage. Patient states that wound and pain got worse after Thanksgiving, with foul odor. In the ED x-ray showed worsening osteomyelitis. With labs showing WBC 16.7, C- reactive protein 6.6. Per vascular surgery plans on TMA on Wednesday. Review of Systems 2 Review of Systems: Yes all other systems are reviewed and are negative [facility] Medical History Ischemic cardiomyopathy PAD (peripheral artery disease) Diabetic ulcer of right foot Diabetes Osteomyelitis of second toe of right foot Back pain Smoker Insomnia Amputated toe of left foot Anemia Low testosterone Hyperlipidemia Hypertension Carotid atherosclerosis Erectile dysfunction associated with type 2 diabetes mellitus Lumbar degenerative disc disease Gall bladder disease Finding of floating rib Spine disorder Pacemaker Stroke Diabetes 1.5, managed as type 2 Surgical History History of surgery History of surgery History of appendectomy Social History Household Members: Other Household Members Other:: roomate Housing: Apartment Are you a primary nanny caregiver to a significant other at home: No Do you presently have visiting nurse or other home services: No Alcohol intake: current Alcohol intake frequency: does not drink Alcohol type: other Comment: single shaun angelo Patient Tobacco Use Status: Current everyday Tobacco user Tobacco use type: Cigarette Cigarette Packs Per Day: 0.75 Cigarettes Per Day: 15.0 Years Smoked: 45 e-Cigarette/Vaping Use: Never Used Second Hand Smoke Exposure: No Substance Use Type: Marijuana Special yamilex needs: No Advance Directives: No Advance Directives Information Provided: No service: No Current occupational status: retired Cognitive needs: No Hearing needs: No Vision needs: No Meds Allergies Allergy/AdvReac Type Severity Reaction Status Date / Time No Known Allergies Allergy Verified 06/14/25 15:32 Active Medications: Current Medications Acetaminophen (Acetaminophen 325 Mg Tablet) 650 mg PO Q6H PRN PRN Reason: Pain, Mild 1-3,fever,headache Calcium Carbonate (Calcium Carbonate 750 Mg Tab.Chew) 750 mg PO Q4H PRN PRN Reason: Heartburn Dextrose (Dextrose 50 % 25 Gm/50 Ml Syringe) 25 gm IVPUSH Q15M PRN; Protocol PRN Reason: per Hypoglycemia Standing Ord. Glucose (Glucose Gel 15 Gm Gel..Gram.) 15 gm PO Q15M PRN; Protocol PRN Reason: per Hypoglycemia Standing Ord. Heparin Sodium (Porcine) (Heparin Sodium,Porcine 5,000 Unit/Ml Vial) 5,000 unit SUBCUT Q12H [facility] Last Admin: 06/14/25 19:40 Dose: Not Given Hydromorphone HCl (Hydromorphone Hcl 1 Mg/Ml Syringe) 0.5 mg IVPUSH Q4H PRN; Protocol PRN Reason: Pain, Severe (Pain Scale 7-10) Lactated Ringer's (Lr) 1,000 mls @ 100 mls/hr IVCONT .Q10H [facility] Lactated Ringer's (Lr) 2,502 mls @ 2,502 mls/hr 30 ml/kg infuse over 1 hr (2502 ml) IV .Q1H ONE Stop: 06/14/25 20:39 Piperacillin Sod/Tazobactam (Sod 4.5 gm/ Sodium Chloride) 100 mls @ 200 mls/hr IV Q8H [facility] Vancomycin HCl 1,000 mg/ (Sodium Chloride) 270 mls @ 270 mls/hr IV PREOP ONE Stop: 06/14/25 20:40 Insulin Glargine (Insulin Glargine,Hum.Rec.Anlog 100 Unit/Ml 10 Ml Vial) 10 unit SUBCUT BEDTIME [facility] Insulin Human Lispro (Insulin Lispro 100 Unit/Ml 3 Ml Vial) 0 unit SUBCUT QIDACHS [facility]; Protocol Magnesium Hydroxide (Milk Of Magnesia 30 Ml Oral.Susp) 30 ml PO DAILY PRN PRN Reason: Constipation Melatonin (Melatonin 3 Mg Tablet) 6 mg PO BEDTIME PRN PRN Reason: Insomnia Oxycodone HCl (Oxycodone Hcl Immed Release 5 Mg Tablet) 5 mg PO Q4H PRN PRN Reason: Pain, Moderate(Pain Scale 4-6) Pantoprazole Sodium (Pantoprazole Sodium 40 Mg/10 Ml Vial) 40 mg IVPUSH DAILY@0630 [facility] Pharmacy Consult (Consult Rx Vancomycin Dosing) 1 each MISCELLANE DAILY PRN PRN Reason: Consult order Sodium Chloride (0.9 % Sodium Chloride Flush 3 Ml Syringe) 3 ml IVFLUSH QSHIFT [facility] Home Medications ?Medication ?Instructions ?Recorded ?Confirmed ?Last Taken ?Type flash glucose sensor (FreeStyle 11/24/23 06/08/25 Unk nown History Dori 2 Sensor kit) pen needle, diabetic 32 gauge x 11/24/23 06/08/25 Unk nown History 07/17 (NovoFine Plus) metformin 1,000 mg tablet 1,000 mg PO BID 03/20/2406/04/25 History insulin degludec 100 unit/mL (3 See Rx Instructions .R oute .COMPLEX 03/07/25 06/08/25 03/22/25 History mL) subcutaneous pen (Tresiba FlexTouch U-100 insulin) metoprolol succinate 25 mg 12.5 mg PO DAILY 03/22/25 1 08/08/24 06/04/25 History tablet,extended release 24 hr glipizide 5 mg tablet, extended 5 mg PO DAILY 03/23/25 06/08/25 06/04/25 History release 24 hr clotrimazole 1 % topical cream 1 appl topical BID PRN Rash 06/04/25 06/08/25 Unknown History insulin lispro 100 unit/mL See Protocol subcut TIDAC 1 08/04/24 06/08/25 Unknown History subcutaneous pen (Humalog KwikPen (U-100) Insulin) oxycodone 15 mg tablet 15 mg PO Q6H PRN pain 06/08/25 Unknown History trazodone 100 mg tablet 100 mg PO BEDTIME 06/04/25 1 08/08/24 06/03/25 History Physical Exam 2 Vital Signs and Narrative: Vital Signs: Last Vital Signs Temp 97.9 F 06/14/25 17:46 Pulse 90 06/14/25 17:46 Resp 18 06/14/25 17:46 BP 152/68 H 06/14/25 17:46 Pulse Ox 100 06/14/25 17:46 O2 Del Method Room Air 06/14/25 17:46 BMI result Body Mass Index 27.1 General: AxOx3, No acute distress Head: AT/NC ENT: Moist mucous membranes Neck: supple CVS; RRR, S1 S2 normal Lungs: Clear bilateral breath sounds, no wheezes or crackles Abd: Soft non tender, non distended Ext: No calf tenderness MSK: moving all 4 limbs Skin: Foul odor, see imaging of right foot osteomyelitis Psych: Cooperative with exam Neurology: no focal deficit Results Labs 06/14/25 15:56 06/14/25 15:56 Labs: Laboratory Results - last 24 hr 06/14/25 06/14/25 15:56 15:57 MCV 81.5 MCH 26.8 L MCHC 32.9 RDW 14.6 Plt Count 528 H MPV 9.8 Immature Gran % (Auto) 0.7 H Neut % (Auto) 79.8 H Lymph % (Auto) 11.2 L Mora % (Auto) 7.4 Eos % (Auto) 0.5 Baso % (Auto) 0.4 Lymph # (Auto) 1.9 Mora # (Auto) 1.2 Eos # (Auto) 0.1 Baso # (Auto) 0.1 Abs Immat Gran (auto) 0.11 H Absolute Neuts (auto) 13.4 H Absolute Nucleated RBC 0.000 Nucleated RBC % (auto) 0.0 ESR 64 H Anion Gap 13 Estim Creat Clear Calc 63.1 Estimated GFR > 60 Random Glucose 329 H Lactic Acid 1.2 Calcium 9.1 Total Bilirubin 0.3 AST 34 ALT 27 Alkaline Phosphatase 91 C-Reactive Protein 6.60 H Total Protein 6.7 Albumin 3.6 Imaging Radiologist's Impressions: Impressions Foot X-Ray 06/14/25 16:00 IMPRESSION: Aggressive destructive changes are present in the head and neck of the second metatarsal consistent with progression of osteomyelitis. There is also suspicion for involvement of the lateral first metatarsal head and neck, as well as the medial base of the third and fourth proximal phalanges and heads of the third and fourth metatarsals. In the appropriate clinical setting, inflammatory arthropathy could be in the differential. Electronically signed by: Marcus Sidhu MD 06/14/2025 04:12 PM [facility] Assessment and Plan (1) PAD (peripheral artery disease): Status: Acute (2) Sepsis: Qualifiers: Sepsis acute organ dysfunction status: unspecified Sepsis type: sepsis due to unspecified organism Qualified Code(s): A41.9 - Sepsis, unspecified organism Status: Acute (3) Osteomyelitis: Qualifiers: Laterality: right Osteomyelitis location: foot Osteomyelitis type: u nspecified type Qualified Code(s): M86.9 - Osteomyelitis, unspecified Status: Acute Plan Assessment; 64-year-old male who presented to hospital after being seen earlier today by vascular surgery, with worsening right foot infection with purulent drainage, in the ED x-ray showed progression of osteomyelitis, plans on taken to the OR on Wednesday for possible transmetatarsal amputation Sepsis secondary to Right foot osteomyelitis Right foot osteomyelitis Leukocytosis and thrombocytosis, likely secondary to above PAD, chronic -labs and imaging reviewed with right foot x-ray showing destructive changes in the head and neck of the 2nd metatarsal consistent with progression of osteomyelitis -we will give additional sepsis bolus with 1.5 L as patient already received 1 L, we will later initiate maintenance IV fluids -previously on daptomycin, we will initiate vanc and Zosyn -multimodal pain management -blood culture and wound culture ordered as well as Wound Care team. -vascular surgery consulted and following, plans on amputation likely on Wednesday -continue with daily labs T2 dm, chronic -we will initiate insulin sliding scale, basal insulin 10 units initiated we will adjust accordingly Anemia of chronic disease -continue to monitor and transfuse for hemoglobin less than 7 FEN: LR, replete as needed, diabetic GI PPX: Protonix 40 mg q.d. DVT PPX: Heparin 5000 units b.i.d. Code status: Full code Disposition: All questions and concerns with the patient were answered to satisfaction. All pertinent clinical documents, images and labs were reviewed. DISCLAIMER: This document was created using voice recognition software. Any mistakes in the prescription are unintentional. An attempt was made to focus for accuracy, but to expedite availability, some errors may persist. Please contact with any need for correction or further clarification Total time managing care of this patient today: 75 minutes. Quality Stroke Does the patient have a stroke diagnosis?: No VTE Prior VTE?: No VTE Risk Level:: Medical - moderate - high VTE Device Contraindication: Treatment Not Indicated VTE Drug Contraindication: N/A - Med Ordered
[2025-06-14] MEDS: Lactated Ringers 1,000 ML 100 ML IVCONT (19:59)
[2025-06-14] MEDS: oxyCODONE HCl Immed Release 5 MG TABLET PO (20:02)
[2025-06-14] MEDS: vancomycin/NS 2,000 MG/500 ML PLAST..BAG 250 MG IV (20:48)
--- NOTE | 2025-06-14 20:49 | PHA.MEDREC ---
Pharmacy Consult ? Medication Reconciliation Pharmacy has completed the medication reconciliation. Spoke to patient to confirm medication list. Patient was recently discharged on 06/07/25 and said nothing has changed since then. He verified that rosuvastatin is on hold right now until 07/19/25. He also said he uses tresiba 15-20 units depends on his sugar level at bedtime. Last dose of medications was yesterday 06/13/25.
--- NOTE | 2025-06-14 20:59 | PHA.PROG ---
Admission Date/Time: June 14, 2025 19:31 Indication: Bone & Joint Weight in k.4 kg Serum Creatinine - Last 168 Hours 06/14/25 15:56 Creatinine 1.15 Estimated CrCl and GFR - Last 168 Hours 06/14/25 15:56 Estim Creat Clear Calc 63.1 Estimated GFR > 60 Vancomycin Loading Dose: 2,000mg Current Vancomycin Dosing Regimen: 750mg q12h Vancomycin Monitoring using AUC goal of 400 - 600 range with trough as surrogate marker: 488, 16.5 Date and Time for next Vancomycin Level to be drawn: 06/16 @ 0700 Pharmacist Comments on Vancomycin Plan: Vancomycin dosing will take advantage of [employer] as a clinical decision support tool that uses Bayesian modeling to calculate individual patient's pharmacokinetic parameters and forecast the patient's drug concentration time course with the target goal AUC 24 range of 400 - 600 mg/L/hr.
[2025-06-14] MEDS: Insulin Glargine,Hum.rec.anlog 100 UNIT/ML 10 ML VIAL 10 UNIT SUBCUT (21:28)
--- OUTSIDE RECORDS SUMMARY | 2025-06-14 22:15 | XMS_ITS | Continuity of Care Document ---
Author Organization [facility] [address] [place] [address] Phone [phone] Problems Active Problems Provider Date Type 2 [...] e11.9 6units E11.9 Sarah Li NP 06/05/2025 Vmevitly8jz/0.5ML Solution Auto-Inject inject 5 mg subcutaneously once weekly 2ml Sarah Li NP 11/15/2024 Pen Chjrnps82Y X 4 mm Misc use one needle with insulin tacos, use three times a day 100units Mona Muhammad M.D. 08/16/2024 Freestyle Dori 2/[place]/Flash Glucose Monitoring Icikid8Xnheez Device use as directed with sensors 1units E11Nakia Muhammad M.D. 09/20/2023 Freestyle Dori 2/Sensor/Flash Glucose Monitoring Soorfa0Xiogsp Misc 1 sensor to skin every fourteen days as directed dx: e11.9 3units E11.9 Sarah Li NP 09/20/2023 Ztlido1.8% Patches 1 patch daily Unknown Aspirin 8181mg Tablets DR 1 by mouth every day Unknown Ketoconazole2% Cream Unknown Accu-Chek GuideStrips Unknown Jzkglyl61vt Tablets Take 1 tablet by mouth daily 90tabs Mona Muhammad M.D. Tresiba Tsiacehtm819Kzoj/ML Solution Pen-Inject Administer 30 Units Under The Skin Daily 30units E11.21 Mona Muhammad M.D. Nwnsrbltgu98to Capsules DR Take 1 capsule by mouth daily 90caps Mona Muhammad M.D. Metformin [id number] Tablets Take 1 Tablet By Mouth Twice Daily 180tabs Sarah Li NP Accu-Chek GuideStrips Unknown Rosuvastatin Jprvfba14cb Tablets Take 1 tablet by mouth daily Unknown Losartan Rsqrrigfm77zi Tablets Take 1 tablet by mouth daily Unknown Trazodone MKF304mo Tablets Take 1 tablet by mouth at [...] 09/17/2023 Inhouse Hemoglobin A1c 8.2% 1 Test(s) 440371-Rlzuw terone was developed and its performance characteristics determined by [facility]. It has not been cleared or approved by the Food and Drug Administration. Test(s) 671754-Cqkhd Activity, Plasma was developed and its performance characteristics determined by [facility]. It has not been cleared or approved by the Food and Drug Administration. 2 Normal: 0 - 29 Moderately increased: 30 - 300 Severely increased: >300 Procedures Date Code Description Status 12/29/2023 02776 Glucose Monitoring Interpeta tion And Report Completed [...] [facility] Closed [address] [place] [address] [phone]
[2025-06-14 22:48] VITALS: BP 134/58; PULSE 97; RESP 20; O2SAT 94
--- NOTE | 2025-06-14 22:54 | PC.NURSE ---
patient called RN into room and requested pain meds. when RN went in to give ordered IV Dilaudid, patient began yelling stating he wants 4mg of morphine to be ordered every 4 hours as that is what works for his pain. explained to patient Dilaudid was donaldo than morphine and may provide better relief. patient did not agree and wanted to speak with provider. provider notified but only willing to prescribe patient 2 mg IV morphine. patient also has his oxycodone dose ordered that he takes at home. RN went back into room and discussed pain regime with patient patient expressed he was not happy with the ordered dose of morphine but willing to take and stated i will be on the call yanez all night due to pain not being managed .
--- NOTE | 2025-06-14 23:46 | PC.NURSE ---
Assumed care of this Pt at 2300.
[2025-06-15] VITALS (8 sets, daily range): BP systolic 119–147; BP diastolic 55–79; PULSE 77–96; RESP 14–20; TEMP 36.2–36.9; O2SAT 93–99; BMI 31.2
[2025-06-15] MEDS: 0.9 % Sodium Chloride Flush 3 ML SYRINGE IVFLUSH (01:19)
[2025-06-15] MEDS: oxyCODONE HCl Immed Release 5 MG TABLET PO ×4 (01:29→19:31)
--- NOTE | 2025-06-15 03:28 | PC.NURSE ---
Assumed care of pt at 0300. Pt called RN into room, yelling that his pain is not well controlled. Ambulating around room. Medicated with Morphine 2mg IV per MAR. States you are all fools and I will show you if you don't take care of my pain . Redirected back to bed. Given juice and sandwich. LR@100ml/hr running into GEOVANI single lumen PICC. Call light within reach of pt. Bed in lowest position. Pending bed assignment. Plan of care ongoing.
[2025-06-15 04:05] LABS: Hematocrit 29.9 % (42.0-52.0); Hemoglobin 9.7 g/dl (14.0-18.0); Mean Corpuscular HGB Conc 32.4 g/dl (31.0-36.0); Mean Corpuscular Hemoglobin 27.2 pg (27.0-33.0); Mean Corpuscular Volume 84.0 fL (80.0-98.0); NRBC Abs Auto 0.000 X10*3/uL (0.0-0.012); NRBC Pct Auto 0.0 /100WBC (0.0-0.2); Platelet Count 539 X10*3/uL (160-400); Red Blood Count 3.56 X10*6/uL (4.60-5.80); White Blood Count 13.0 X10*3/uL (4.8-10.8)
[2025-06-15 04:17] LABS: Anion Gap 12 (12-20); Blood Urea Nitrogen 17 mg/dL (9-16); Calcium 8.8 mg/dL (8.4-10.2); Carbon Dioxide 25 mmol/L (22-29); Chloride 105 mmol/L (96-108); Creatinine Clr Calc Pharmacy 63.7; Estimated Glomerular Filt Rate > 60; Potassium 4.8 mmol/L (3.3-5.1); Sodium 137 mmol/L (135-145)
--- NOTE | 2025-06-15 05:14 | PC.NURSE ---
MD notified that pt is demanding inc dose of pain meds, specifically morphine. Also made MD aware that no CXR was taken to confirm PICC line placement as well as no order to use same. No new orders received.
[2025-06-15] MEDS: Lactated Ringers 1,000 ML 100 ML IVCONT ×2 (05:32→15:27)
--- NOTE | 2025-06-15 06:18 | HO.NURTONUR ---
Pt is a 64yo M who was sent to the ED from [facility] surgery on 06/13. Pt with recent hx of osteomyelitis in rt foot. Pt had PICC placed in IR and was started on LTA. After Thanksgiving pt reports purulent drainage and inc pain. XR of rt foot shows worsening osteo, plan to take pt to OR on Wednesday for possible TMA. PMH CKD3, DM2, CHF. Pt remains afebrile. Bld cxs x2 obtained as well as wound culture. Receiving zosyn Q6hr. NSR on monitor. BP stable. Diabetic diet ordered. POC ACHS, sliding scale insulin. Ambulates to bathroom independently. GEOVANI PICC dsg dated 06/14, flushes easily with brisk blood return. Pt Pt has complained of poor pain control while in ED. PRN morphine and oxy ordered and given Q4hr. notified of pt's complaints of poor pain management. No new orders received.
[2025-06-15 07:36] LABS: Glucose, Whole Blood 134 mg/dL (60-115)
--- NOTE | 2025-06-15 10:15 | PM.CNGS ---
History of Present Illness Consult details Consult date: 06/15/25 Narrative: 73-year-old gentleman well known to me for diabetic foot ulceration. He actually had undergone a diagnostic angiogram by me on 03/26/2025 and subsequently underwent right 2nd toe amputation. He had been treated conservatively and had been following up for nonhealing incisional ulcer. Ended up in the hospital around [facility] and was given IV antibiotics and subsequently discharged. He presented to the office yesterday complaining of increased pain drainage and a foul odor associated with the wound. He was subsequently sent over to the emergency room. He has been worked up and admitted. In addition he did have pain control issues at that time. Review of Systems Review of Systems: Yes all other systems are reviewed and are negative Constitutional: Constitutional: Reports no additional constitutional complaints ENT: Reports Normal hearing present Cardiovascular: Cardiovascular: Denies chest pain, Denies chest pain at rest, Denies chest pain with activity and Denies pedal edema Respiratory: Respiratory: Denies cough Gastrointestinal: Gastrointestinal: Denies abdominal pain Musculoskeletal: Musculoskeletal: Denies abnormal gait, Denies muscle cramps and Denies radiating pain into limb Integumentary/Breasts: Skin/Breast: Denies skin ulcer and Denies wounds Neurologic: Reports Normal hearing present and Denies abnormal gait Psychiatric: Psychiatric: Reports no additional psychiatric complaints PMFSH Past Medical History Medical History Ischemic cardiomyopathy PAD (peripheral artery disease) Diabetic ulcer of right foot Diabetes Osteomyelitis of second toe of right foot Back pain Smoker Insomnia Amputated toe of left foot Anemia Low testosterone Hyperlipidemia Hypertension Carotid atherosclerosis Erectile dysfunction associated with type 2 diabetes mellitus Lumbar degenerative disc disease Gall bladder disease Finding of floating rib Spine disorder Pacemaker Stroke Diabetes 1.5, managed as type 2 Surgical History Surgical History History of surgery History of surgery History of appendectomy Social History Social History Household Members: Other Household Members Other:: roomate Housing: Apartment Are you a primary long term acute care registered nurse to a significant other at home: No Do you presently have visiting nurse or other home services: No Alcohol intake: current Alcohol intake frequency: does not drink Alcohol type: other Comment: single formerly [facility] Patient Tobacco Use Status: Current everyday Tobacco user Tobacco use type: Cigarette Cigarette Packs Per Day: 0.75 Cigarettes Per Day: 15.0 Years Smoked: 45 e-Cigarette/Vaping Use: Never Used Second Hand Smoke Exposure: No Substance Use Type: Marijuana Special yamilex needs: No Advance Directives: No Advance Directives Information Provided: No service: No Current occupational status: retired Cognitive needs: No Hearing needs: No Vision needs: No Meds Allergies Allergy/AdvReac Type Severity Reaction Status Date / Time No Known Allergies Allergy Verified 06/14/25 15:32 Active Medications: Current Medications Acetaminophen (Acetaminophen 325 Mg Tablet) 650 mg PO Q6H PRN PRN Reason: Pain, Mild 1-3,fever,headache Atorvastatin Calcium (Atorvastatin Calcium 80 Mg Tablet) 80 mg PO DAILY [facility] Last Admin: 06/15/25 08:24 Dose: 80 mg Calcium Carbonate (Calcium Carbonate 750 Mg Tab.Chew) 750 mg PO Q4H PRN PRN Reason: Heartburn Dextrose (Dextrose 50 % 25 Gm/50 Ml Syringe) 25 gm IVPUSH Q15M PRN; Protocol PRN Reason: per Hypoglycemia Standing Ord. Empagliflozin (Empagliflozin 10 Mg Tablet) 10 mg PO DAILY [facility] Last Admin: 06/15/25 08:24 Dose: 10 mg Glucose (Glucose Gel 15 Gm Gel..Gram.) 15 gm PO Q15M PRN; Protocol PRN Reason: per Hypoglycemia Standing Ord. Heparin Sodium (Porcine) (Heparin Sodium,Porcine 5,000 Unit/Ml Vial) 5,000 unit SUBCUT Q12H [facility] Last Admin: 06/15/25 08:24 Dose: 5,000 unit Hydromorphone HCl (Hydromorphone Hcl 1 Mg/Ml Syringe) 1 mg IVPUSH Q4H PRN; Protocol PRN Reason: Pain, Moderate(Pain Scale 4-6) Hydromorphone HCl (Hydromorphone Hcl 1 Mg/Ml Syringe) 2 mg IVPUSH Q4H PRN; Protocol PRN Reason: Pain, Severe (Pain Scale 7-10) Last Admin: 06/15/25 08:40 Dose: 2 mg Lactated Ringer's (Lr) 1,000 mls @ 100 mls/hr IVCONT .Q10H [facility] Last Admin: 06/15/25 05:32 Dose: 100 mls/hr Piperacillin Sod/Tazobactam (Sod 4.5 gm/ Sodium Chloride) 100 mls @ 200 mls/hr IV Q6H [facility] Last Infusion: 06/15/25 08:53 Dose: Infused Vancomycin HCl 750 mg/ Sodium (Chloride) 265 mls @ 265 mls/hr IV Q12H [facility] Last Infusion: 06/15/25 09:55 Dose: Infused Insulin Glargine (Insulin Glargine,Hum.Rec.Anlog 100 Unit/Ml 10 Ml Vial) 10 unit SUBCUT BEDTIME [facility] Last Admin: 06/14/25 21:28 Dose: 10 unit Insulin Human Lispro (Insulin Lispro 100 Unit/Ml 3 Ml Vial) 0 unit SUBCUT QIDACHS [facility]; Protocol Last Admin: 06/15/25 08:23 Dose: Not Given Magnesium Hydroxide (Milk Of Magnesia 30 Ml Oral.Susp) 30 ml PO DAILY PRN PRN Reason: Constipation Melatonin (Melatonin 3 Mg Tablet) 6 mg PO BEDTIME PRN PRN Reason: Insomnia Metoprolol Succinate (Metoprolol Succinate Er 12.5 Mg Halftab.Er.24h) 12.5 mg PO DAILY [facility]; Protocol Pantoprazole Sodium (Pantoprazole Sodium 40 Mg/10 Ml Vial) 40 mg IVPUSH DAILY@0630 [facility] Last Admin: 06/15/25 06:27 Dose: 40 mg Pharmacy Consult (Consult Rx Vancomycin Dosing) 1 each MISCELLANE DAILY PRN PRN Reason: Consult order Sacubitril/Valsartan (Sacubitril/Valsartan 1 Tab Tablet) 1 tab PO BID [facility]; Protocol Sodium Chloride (0.9 % Sodium Chloride Flush 3 Ml Syringe) 3 ml IVFLUSH QSHIFT [facility] Last Admin: 06/15/25 08:23 Dose: Not Given Trazodone HCl (Trazodone Hcl 100 Mg Tablet) 100 mg PO BEDTIME [facility] Home Medications ?Medication ?Instructions ?Recorded ?Confirmed ?Last Taken ?Type flash glucose sensor (FreeStyle 11/24/23 06/08/25 Unknown History Dori 2 Sensor kit) pen needle, diabetic 32 gauge x 11/24/23 06/08/25 Unknown History 07/17 (NovoFine Plus) metformin 1,000 mg tablet 1,000 mg PO BID 03/20/24 06/14/25 06/13/25 History insulin degludec 100 unit/mL (3 15 - 20 unit subcut BEDTIME 03/07/25 06/14/25 06/13/25 History mL) subcutaneous pen (Tresiba FlexTouch U-100 insulin) metoprolol succinate 25 mg 12.5 mg PO DAILY 03/22/25 06/14/25 06/13/25 History tablet,extended release 24 hr glipizide 5 mg tablet, extended 5 mg PO DAILY 03/23/25 06/14/25 06/13/25 History release 24 hr clotrimazole 1 % topical cream 1 appl topical BID PRN Rash 06/04/25 06/14/25 Unknown History insulin lispro 100 unit/mL See Protocol subcut TIDAC 06/04/25 06/14/25 06/13/25 History subcutaneous pen (Humalog KwikPen (U-100) Insulin) trazodone 100 mg tablet 100 mg PO BEDTIME 06/04/25 06/14/25 06/13/25 History Physical Exam Vital Signs: Vital Signs: Last Vital Signs Temp 97.8 F 06/15/25 09:44 Pulse 94 06/15/25 09:44 Resp 14 06/15/25 09:44 BP 124/72 06/15/25 09:44 Pulse Ox 97 06/15/25 09:44 O2 Del Method Room Air 06/15/25 09:44 BMI result Body Mass Index 27.1 Const: General: cooperative, healthy appearing and comfortable Orientation/consciousness: oriented to person, oriented to place and oriented to time HEENT: Head: Yes normal to inspection Neck: Neck: Yes normal visual inspection Carotids: no bruits Chest: Chest palpation & inspection: normal inspection of the chest Resp: Effort & Inspection: normal respiratory effort and able to speak in complete sentences Auscultation: clear to auscultation bilaterally, no crackles, no rales, no rhonchi and no wheezes Cardio: Rate: regular rate Rhythm: regular rhythm Heart sounds: S1 normal heart sound present and S2 normal heart sound present Bruits: no carotid bruits Peripheral pulses: Peripheral pulses 2+ throughout GI: Inspection: Yes normal to inspection Skin: Other: Right 2nd toe open ulcer with purulent drainage Wounds: amputation site and wounds noted Hair: normal Neuro: General: oriented to person, oriented to place and oriented to time Cranial nerves: Yes CN's II-XII intact bilaterally and Yes Normal hearing present Cognition (Neuro): normal cognition Motor exam (neuro): 5/5 motor strength present throughout Extrem: Other: venous exam: No significant superficial varicosities or spider telangiectasias, minimal edema General: No clubbing, No cyanosis and No edema Psych: Appearance: grossly normal Mental Status: mental status grossly normal Speech and movement: Normal speech and movement present Results Labs 06/15/25 03:49 06/15/25 03:49 Labs: Abnormal lab results 06/14/25 06/14/25 06/15/25 Range/Units 15:56 21:11 03:49 WBC 16.7 H 13.0 H (4.8-10.8) X10*3/uL RBC 3.51 L 3.56 L (4.60-5.80) X10*6/uL Hgb 9.4 L 9.7 L (14.0-18.0) g/dl Hct 28.6 L 29.9 L (42.0-52.0) % MCH 26.8 L (27.0-33.0) pg Plt Count 528 H 539 H (160-400) X10*3/uL Immature Gran % (Auto) 0.7 H (0.0-0.4) % Neut % (Auto) 79.8 H (45-73) % Lymph % (Auto) 11.2 L (20-40) % Abs Immat Gran (auto) 0.11 H (0.00-0.03) X10*3/uL Absolute Neuts (auto) 13.4 H (2.0-8.3) x10*3/uL ESR 64 H (0-15) MM/HR Sodium 134 L (135-145) mmol/L BUN 21 H 17 H (9-16) mg/dL POC Glucose 313 H (60-115) mg/dL Random Glucose 329 H (60-115) mg/dL C-Reactive Protein 6.60 H (< or = 0.50) mg/dL 06/15/25 Range/Units 07:28 WBC (4.8-10.8) X10*3/uL RBC (4.60-5.80) X10*6/uL Hgb (14.0-18.0) g/dl Hct (42.0-52.0) % MCH (27.0-33.0) pg Plt Count (160-400) X10*3/uL Immature Gran % (Auto) (0.0-0.4) % Neut % (Auto) (45-73) % Lymph % (Auto) (20-40) % Abs Immat Gran (auto) (0.00-0.03) X10*3/uL Absolute Neuts (auto) (2.0-8.3) x10*3/uL ESR (0-15) MM/HR Sodium (135-145) mmol/L BUN (9-16) mg/dL POC Glucose 134 H (60-115) mg/dL Random Glucose (60-115) mg/dL C-Reactive Protein (< or = 0.50) mg/dL Short CBC 06/14/25 06/15/25 Range/Units 15:56 03:49 WBC 16.7 H 13.0 H (4.8-10.8) X10*3/uL Hgb 9.4 L 9.7 L (14.0-18.0) g/dl Hct 28.6 L 29.9 L (42.0-52.0) % Plt Count 528 H 539 H (160-400) X10*3/uL BMP 06/14/25 06/15/25 15:56 03:49 Sodium 134 L 137 Potassium 4.9 4.8 Chloride 101 105 Carbon Dioxide 25 25 BUN 21 H 17 H Creatinine 1.15 1.14 Calcium 9.1 8.8 Liver Function 06/14/25 Range/Units 15:56 Total Bilirubin 0.3 (0.0-1.0) mg/dL AST 34 (5-37) U/L ALT 27 (0-40) U/L Alkaline Phosphatase 91 (39-117) U/L Albumin 3.6 (3.5-5.0) g/dL All other labs normal. Assessment and Plan (1) Osteomyelitis: Qualifiers: Laterality: right Osteomyelitis location: foot Osteomyelitis type: unspecified type Qualified Code(s): M86.9 - Osteomyelitis, unspecified Status: Acute Plan In short patient has nonhealing right 2nd toe ulcer. This is in with underlying diabetes. In addition the 3rd toe appears necrotic as well. In order to do an appropriate amputation I do think a transmetatarsal amputation is him in his best interest. I did review the options with the patient and he did agree that he would like to get this all over with. The patient will require right foot transmetatarsal amputation. Risks benefits complications were discussed in detail with the patient. He understood and consented. We will schedule for Wednesday Procedures Date of Service Date of Service: 06/15/25
[2025-06-15] MEDS: Metoprolol Succinate ER 12.5 MG HALFTAB.ER.24H PO (10:23)
[2025-06-15] MEDS: Sacubitril/Valsartan 24/26 1 TAB TABLET PO ×2 (10:23→21:03)
--- NOTE | 2025-06-15 12:02 | P.PNIM_ITS ---
Subjective Subjective Date of Service: 06/15/25 Interval History: Patient seen examined at bedside this morning, WBC decreasing, spoke with vascular surgery with plans on TMA on Wednesday, mentioned that his pain has not been under control with morphine 2 mg. Review of Systems Review of Systems: Yes all other systems are reviewed and are negative Physical Exam 2 Exam: Exam: General: AxOx3, complaining of pain Head: AT/NC ENT: Moist mucous membranes Neck: supple CVS; RRR, S1 S2 normal Lungs: Clear bilateral breath sounds, no wheezes or crackles Abd: Soft non tender, non distended Ext: No calf tenderness MSK: moving all 4 limbs Skin: Foul odor, right foot wound w/ dressing in place Psych: Cooperative with exam Neurology: no focal deficit Vital Signs: Vital Signs: Last Vital Signs Temp 97.8 F 06/15/25 09:44 Pulse 94 06/15/25 10:23 Resp 14 06/15/25 09:44 BP 124/72 06/15/25 10:23 Pulse Ox 97 06/15/25 09:44 O2 Del Method Room Air 06/15/25 09:44 BMI result Body Mass Index 27.1 Objective Data Active Medications Acetaminophen (Acetaminophen 325 Mg Tablet) 650 mg PO Q6H PRN PRN Reason: Pain, Mild 1-3,fever,headache Atorvastatin Calcium (Atorvastatin Calcium 80 Mg Tablet) 80 mg PO DAILY [facility] Last Admin: 06/15/25 08:24 Dose: 80 mg Documented By: BARBARA Calcium Carbonate (Calcium Carbonate 750 Mg Tab.Chew) 750 mg PO Q4H PRN PRN Reason: Heartburn Dextrose (Dextrose 50 % 25 Gm/50 Ml Syringe) 25 gm IVPUSH Q15M PRN; Protocol PRN Reason: per Hypoglycemia Standing Ord. Glucose (Glucose Gel 15 Gm Gel..Gram.) 15 gm PO Q15M PRN; Protocol PRN Reason: per Hypoglycemia Standing Ord. Heparin Sodium (Porcine) (Heparin Sodium,Porcine 5,000 Unit/Ml Vial) 5,000 unit SUBCUT Q12H [facility] Last Admin: 06/15/25 08:24 Dose: 5,000 unit Documented By: BARBARA Hydromorphone HCl (Hydromorphone Hcl 1 Mg/Ml Syringe) 1 mg IVPUSH Q4H PRN; Protocol PRN Reason: Pain, Moderate(Pain Scale 4-6) Last Admin: 06/15/25 11:06 Dose: 1 mg Documented By: BARBARA Hydromorphone HCl (Hydromorphone Hcl 1 Mg/Ml Syringe) 2 mg IVPUSH Q4H PRN; Protocol PRN Reason: Pain, Severe (Pain Scale 7-10) Last Admin: 06/15/25 08:40 Dose: 2 mg Documented By: BARBARA Lactated Ringer's (Lr) 1,000 mls @ 100 mls/hr IVCONT .Q10H [facility] Last Admin: 06/15/25 05:32 Dose: 100 mls/hr Documented By: GILBERT Piperacillin Sod/Tazobactam (Sod 4.5 gm/ Sodium Chloride) 100 mls @ 200 mls/hr IV Q6H [facility] Last Infusion: 06/15/25 08:53 Dose: Infused Documented By: BARBARA Vancomycin HCl 750 mg/ Sodium (Chloride) 265 mls @ 265 mls/hr IV Q12H [facility] Last Infusion: 06/15/25 09:55 Dose: Infused Documented By: BARBARA Insulin Glargine (Insulin Glargine,Hum.Rec.Anlog 100 Unit/Ml 10 Ml Vial) 10 unit SUBCUT BEDTIME [facility] Last Admin: 06/14/25 21:28 Dose: 10 unit Documented By: LYDIA Insulin Human Lispro (Insulin Lispro 100 Unit/Ml 3 Ml Vial) 0 unit SUBCUT QIDACHS [facility]; Protocol Last Admin: 06/15/25 08:23 Dose: Not Given Documented By: BARBARA Non-Admin Reason: No Insulin Coverage Magnesium Hydroxide (Milk Of Magnesia 30 Ml Oral.Susp) 30 ml PO DAILY PRN PRN Reason: Constipation Melatonin (Melatonin 3 Mg Tablet) 6 mg PO BEDTIME PRN PRN Reason: Insomnia Metoprolol Succinate (Metoprolol Succinate Er 12.5 Mg Halftab.Er.24h) 12.5 mg PO DAILY [facility]; Protocol Last Admin: 06/15/25 10:23 Dose: 12.5 mg Documented By: BARBARA Pantoprazole Sodium (Pantoprazole Sodium 40 Mg/10 Ml Vial) 40 mg IVPUSH DAILY@0630 [facility] Last Admin: 06/15/25 06:27 Dose: 40 mg Documented By: GILBERT Pharmacy Consult (Consult Rx Vancomycin Dosing) 1 each MISCELLANE DAILY PRN PRN Reason: Consult order Sacubitril/Valsartan (Sacubitril/Valsartan 1 Tab Tablet) 1 tab PO BID [facility]; Protocol Last Admin: 06/15/25 10:23 Dose: 1 tab Documented By: BARBARA Sodium Chloride (0.9 % Sodium Chloride Flush 3 Ml Syringe) 3 ml IVFLUSH QSHIFT [facility] Last Admin: 06/15/25 08:23 Dose: Not Given Documented By: BARBARA Non-Admin Reason: IV Running Trazodone HCl (Trazodone Hcl 100 Mg Tablet) 100 mg PO BEDTIME [facility] Labs 06/15/25 03:49 06/15/25 03:49 Labs: Laboratory Results - last 24 hr 06/14/25 06/14/25 06/14/25 15:56 15:57 21:11 MCV 81.5 MCH 26.8 L MCHC 32.9 RDW 14.6 Plt Count 528 H MPV 9.8 Immature Gran % (Auto) 0.7 H Neut % (Auto) 79.8 H Lymph % (Auto) 11.2 L [place] % (Auto) 7.4 Eos % (Auto) 0.5 Baso % (Auto) 0.4 Lymph # (Auto) 1.9 [place] # (Auto) 1.2 Eos # (Auto) 0.1 Baso # (Auto) 0.1 Abs Immat Gran (auto) 0.11 H Absolute Neuts (auto) 13.4 H Absolute Nucleated RBC 0.000 Nucleated RBC % (auto) 0.0 ESR 64 H Anion Gap 13 Estim Creat Clear Calc 63.1 Estimated GFR > 60 POC Glucose 313 H Random Glucose 329 H Lactic Acid 1.2 Calcium 9.1 Total Bilirubin 0.3 AST 34 ALT 27 Alkaline Phosphatase 91 C-Reactive Protein 6.60 H Total Protein 6.7 Albumin 3.6 06/15/25 06/15/25 03:49 07:28 MCV 84.0 MCH 27.2 MCHC 32.4 RDW 14.5 Plt Count 539 H MPV 9.8 Immature Gran % (Auto) Neut % (Auto) Lymph % (Auto) [place] % (Auto) Eos % (Auto) Baso % (Auto) Lymph # (Auto) [place] # (Auto) Eos # (Auto) Baso # (Auto) Abs Immat Gran (auto) Absolute Neuts (auto) Absolute Nucleated RBC 0.000 Nucleated RBC % (auto) 0.0 ESR Anion Gap 12 Estim Creat Clear Calc 63.7 Estimated GFR > 60 POC Glucose 134 H Random Glucose 90 Lactic Acid Calcium 8.8 Total Bilirubin AST ALT Alkaline Phosphatase C-Reactive Protein Total Protein Albumin Microbiology Microbiology Results: Microbiology 06/14/25 19:58 Gram Stain - Final Foot Right Routine Culture - Preliminary Culture in progress. Assessment and Plan (1) Osteomyelitis: Status: Acute Plan Assessment; 64-year-old male who presented to hospital after being seen earlier today by vascular surgery, with worsening right foot infection with purulent drainage, in the ED x-ray showed progression of osteomyelitis, plans on taken to the OR on Wednesday for transmetatarsal amputation. Currently on IV Zosyn and vancomycin. Sepsis secondary to Right foot osteomyelitis Right foot osteomyelitis Leukocytosis and thrombocytosis, likely secondary to above, improving PAD, chronic -labs and imaging reviewed with right foot x-ray showing destructive changes in the head and neck of the 2nd metatarsal consistent with progression of osteomyelitis -s/p Sepsis bolus, continue w/ IV fluids -previously on daptomycin, continue vanc and Zosyn -multimodal pain management, increased pain medication to dilaudid -blood culture and wound culture ordered and pending -vascular surgery consulted and following, plans on amputation on Wednesday -continue with daily labs T2 dm, chronic -Continue insulin sliding scale, basal insulin 10 units initiated we will adjust accordingly Anemia of chronic disease -continue to monitor and transfuse for hemoglobin less than 7 FEN: LR, replete as needed, diabetic GI PPX: Protonix 40 mg q.d. DVT PPX: Heparin 5000 units b.i.d. Code status: Full code Disposition: All questions and concerns with the patient were answered to satisfaction. All pertinent clinical documents, images and labs were reviewed. Total time managing care of this patient today: 55 minutes. Quality Stroke Does the patient have a stroke diagnosis?: No VTE Prior VTE?: No VTE Risk Level:: Medical - moderate - high VTE Device Contraindication: Treatment Not Indicated VTE Drug Contraindication: N/A - Med Ordered
[2025-06-15 12:39] LABS: Glucose, Whole Blood 118 mg/dL (60-115)
--- NOTE | 2025-06-15 16:10 | MHC.CM.PN ---
PT REPORTS HE RENTS SPACE IN ANOTHER PERSONS HOME, SO DOES NOT LIVE ALONE, BUT LIVES INDEPENDENTLY HE HAS NO DME AND AND IS ACTIVE WITH [facility], HE ALSO STATES HE WAS DOING IV ABX AT HOME INDEPENDENTLY HE DOES NOT HAVE A HCP, AND DECLINES TO COMPLETE ONE TODAY PCP: GABI PRIDE IMM DELIVERED DCP TBD PENDING PT EVAL HOME RESUME [facility] VS STR WILL HAVE A RIDE IF DISCHARGED HOME
[2025-06-15 16:22] LABS: Glucose, Whole Blood 216 mg/dL (60-115)
--- NOTE | 2025-06-15 16:57 | HO.WOUND ---
Wound Consult: Initial 64yr old? male admitted to [facility] on 06/14/25 - See progress notes and H&P for detailed history.? Wound consult placed for Right Foot amputation site.? Chart review along with photo review and discussion with direct care nurse. Direct care nurse recently applied Durafiber ag and dry gauze dressing. Patient is scheduled for TMA on Wednesday06/18/25. Right Foot 2nd Toe Amp site Etiology: ?NOnhealing Amputation site vs Diabetic wound Wound Bed: moist necrotic tissue Drainage / Odor: foul odor reported Edges: ? macerated Sasha wound: maceration redness purple discoloration ? Goals of Treatment: ? Durafiber for moisture management - defer to provider for amputation and or surgical interventions. Recommendations: 1. Apply Preventative foams where needed. ? 2. Monitor for incontinence and moisture control, use barrier creams when needed for prevention and treatment. 3. Provide adequate and supplemental nutrition.? 4. When applicable maintain blood glucose levels per Providers order. Right Foot - Cleanse with NS, apt dry. Apply Durafiber to wound bed cover with dry gauze and wrap. Change every other day. Re-consult wound care Nurse for wound deterioration or wound changes.
--- NOTE | 2025-06-15 17:27 | HO.SKINPHOTO ---
Location: Right foot Right foot 2nd toe amp. Site cleansed with NaCa pat dried, durafiber, gauze, and gauze wrap applied. Wound noted to be malodorous and have purulent drainage. Wound Nurse Consult placed by provider.
[2025-06-15 20:13] LABS: Glucose, Whole Blood 101 mg/dL (60-115)
[2025-06-15] MEDS: Insulin Glargine,Hum.rec.anlog 100 UNIT/ML 10 ML VIAL 10 UNIT SUBCUT (21:33)
[2025-06-16] VITALS (7 sets, daily range): BP systolic 115–133; BP diastolic 55–68; PULSE 81–89; RESP 16–19; TEMP 36.6–36.8; O2SAT 93–97
[2025-06-16 06:10] LABS: Glucose, Whole Blood 142 mg/dL (60-115)
--- NOTE | 2025-06-16 06:11 | PC.NURSE ---
FINANCIAL RETIREMENT PLAN SPECIALIST alerted typewriter ribbon winder/charge rn that this patient's continuous glucose monitor sensor on pt's RUE sounded/alerted the pt of a blood sugar of 58. Fence Post Cutter presented to this pt's bedside with the FINANCIAL RETIREMENT PLAN SPECIALIST who obtained a POC using this facility's glucometer to correlate glucose as requested. Pt was alert/awake and speaking in full clear sentences with staff. Denied acute s/s. Glucometer POC showed 142. Of note, pt was noted to be side-laying and was educated on importance of not laying on CGM sensor for accuracy. Pt eating snacks provided as requested. Primary RN notified of WNL POC.
[2025-06-16 07:28] LABS: Hematocrit 28.1 % (42.0-52.0); Hemoglobin 9.2 g/dl (14.0-18.0); Mean Corpuscular HGB Conc 32.7 g/dl (31.0-36.0); Mean Corpuscular Hemoglobin 27.5 pg (27.0-33.0); Mean Corpuscular Volume 84.1 fL (80.0-98.0); NRBC Abs Auto 0.000 X10*3/uL (0.0-0.012); NRBC Pct Auto 0.0 /100WBC (0.0-0.2); Platelet Count 541 X10*3/uL (160-400); Red Blood Count 3.34 X10*6/uL (4.60-5.80); White Blood Count 13.1 X10*3/uL (4.8-10.8)
[2025-06-16 07:31] LABS: Glucose, Whole Blood 138 mg/dL (60-115)
[2025-06-16 07:57] LABS: Anion Gap 11 (12-20); Blood Urea Nitrogen 19 mg/dL (9-16); Calcium 9.1 mg/dL (8.4-10.2); Carbon Dioxide 26 mmol/L (22-29); Chloride 104 mmol/L (96-108); Creatinine Clr Calc Pharmacy 72.7; Estimated Glomerular Filt Rate > 60; Potassium 5.6 mmol/L (3.3-5.1); Sodium 135 mmol/L (135-145)
--- NOTE | 2025-06-16 08:17 | HE.PHANOTE ---
re FAINA Level came back 13.6. Will increase dose to 1000 mg Q12H. next level to be drawn tomorrow at 0700.
[2025-06-16] MEDS: Sacubitril/Valsartan 24/26 1 TAB TABLET PO ×2 (08:25→20:42)
[2025-06-16] MEDS: Metoprolol Succinate ER 12.5 MG HALFTAB.ER.24H PO (08:26)
[2025-06-16] MEDS: Lactated Ringers 1,000 ML 100 ML IVCONT (10:05)
--- NOTE | 2025-06-16 10:09 | HO.PM.IMPN ---
Subjective Subjective Date of Service: 06/16/25 Interval History: Patient seen examined at bedside this morning, patient's wound culture growing Gram-positive cocci and Gram-negative. Patient mentions that his pain is not well-controlled, agrees with trying OxyContin to help control his pain. Review of Systems Review of Systems: Yes all other systems are reviewed and are negative Physical Exam Exam: Exam: General: AxOx3, in pain Head: AT/NC ENT: Moist mucous membranes Neck: supple CVS; RRR, S1 S2 normal Lungs: Clear bilateral breath sounds, no wheezes or crackles Abd: Soft non tender, non distended Ext: No calf tenderness MSK: moving all 4 limbs Skin: right foot wound w/ dressing in place Psych: Cooperative with exam Neurology: no focal deficit Vital Signs: Vital Signs: Last Vital Signs Temp 98.1 F 06/16/25 07:20 Pulse 89 06/16/25 08:26 Resp 16 06/16/25 07:20 BP 115/55 L 06/16/25 08:26 Pulse Ox 97 06/16/25 07:20 O2 Del Method Room Air 06/16/25 07:20 BMI result Body Mass Index 31.2 Objective Data Active Medications Acetaminophen (Acetaminophen 325 Mg Tablet) 650 mg PO Q6H PRN PRN Reason: Pain, Mild 1-3,fever,headache Atorvastatin Calcium (Atorvastatin Calcium 80 Mg Tablet) 80 mg PO DAILY [facility] Last Admin: 06/16/25 08:54 Dose: 80 mg Documented By: CHLOE Calcium Carbonate (Calcium Carbonate 750 Mg Tab.Chew) 750 mg PO Q4H PRN PRN Reason: Heartburn Dextrose (Dextrose 50 % 25 Gm/50 Ml Syringe) 25 gm IVPUSH Q15M PRN; Protocol PRN Reason: per Hypoglycemia Standing Ord. Glucose (Glucose Gel 15 Gm Gel..Gram.) 15 gm PO Q15M PRN; Protocol PRN Reason: per Hypoglycemia Standing Ord. Heparin Sodium (Porcine) (Heparin Sodium,Porcine 5,000 Unit/Ml Vial) 5,000 unit SUBCUT Q12H [facility] Last Admin: 06/16/25 08:25 Dose: 5,000 unit Documented By: CHLOE Hydromorphone HCl (Hydromorphone Hcl 1 Mg/Ml Syringe) 2 mg IVPUSH Q3H PRN; Protocol PRN Reason: Pain, Severe (Pain Scale 7-10) Last Admin: 06/16/25 08:53 Dose: 2 mg Documented By: CHLOE Lactated Ringer's (Lr) 1,000 mls @ 100 mls/hr IVCONT .Q10H [facility] Last Infusion: 06/16/25 10:07 Dose: 0 mls/hr Documented By: CHLOE Piperacillin Sod/Tazobactam (Sod 4.5 gm/ Sodium Chloride) 100 mls @ 200 mls/hr IV Q6H [facility] Last Infusion: 06/16/25 09:01 Dose: Infused Documented By: CHOLE Vancomycin HCl 1,000 mg/ (Sodium Chloride) 270 mls @ 270 mls/hr IV Q12H [facility] Last Infusion: 06/16/25 10:07 Dose: Infused Documented By: CHLOE Insulin Glargine (Insulin Glargine,Hum.Rec.Anlog 100 Unit/Ml 10 Ml Vial) 10 unit SUBCUT BEDTIME [facility] Last Admin: 06/15/25 21:33 Dose: 10 unit Documented By: CHANTALE Insulin Human Lispro (Insulin Lispro 100 Unit/Ml 3 Ml Vial) 0 unit SUBCUT QIDACHS [facility]; Protocol Last Admin: 06/16/25 07:32 Dose: Not Given Documented By: CHLOE Non-Admin Reason: No Insulin Coverage Magnesium Hydroxide (Milk Of Magnesia 30 Ml Oral.Susp) 30 ml PO DAILY PRN PRN Reason: Constipation Melatonin (Melatonin 3 Mg Tablet) 6 mg PO BEDTIME PRN PRN Reason: Insomnia Metoprolol Succinate (Metoprolol Succinate Er 12.5 Mg Halftab.Er.24h) 12.5 mg PO DAILY [facility]; Protocol Last Admin: 06/16/25 08:26 Dose: 12.5 mg Documented By: CHLOE Oxycodone HCl (Oxycodone Hcl Immed Release 5 Mg Tablet) 5 mg PO Q3H PRN PRN Reason: Pain, Moderate(Pain Scale 4-6) Last Admin: 06/15/25 19:31 Dose: 5 mg Documented By: CHANTALE Pantoprazole Sodium (Pantoprazole Sodium 40 Mg/10 Ml Vial) 40 mg IVPUSH DAILY@0630 [facility] Last Admin: 06/16/25 05:42 Dose: 40 mg Documented By: CHANTALE Pharmacy Consult (Consult Rx Vancomycin Dosing) 1 each MISCELLANE DAILY PRN PRN Reason: Consult order Sacubitril/Valsartan (Sacubitril/Valsartan 1 Tab Tablet) 1 tab PO BID [facility]; Protocol Last Admin: 06/16/25 08:25 Dose: 1 tab Documented By: CHLOE Sodium Chloride (0.9 % Sodium Chloride Flush 3 Ml Syringe) 3 ml IVFLUSH QSHIFT [facility] Last Admin: 06/16/25 07:36 Dose: Not Given Documented By: CHLOE Non-Admin Reason: IV Running Trazodone HCl (Trazodone Hcl 100 Mg Tablet) 100 mg PO BEDTIME [facility] Last Admin: 06/15/25 23:10 Dose: 100 mg Documented By: CHANTALE Labs 06/16/25 07:06 06/16/25 07:06 Labs: Laboratory Results - last 24 hr 06/15/25 06/15/25 06/15/25 12:33 16:17 20:10 MCV MCH MCHC RDW Plt Count MPV Absolute Nucleated RBC Nucleated RBC % (auto) Anion Gap Estim Creat Clear Calc Estimated GFR POC Glucose 118 H 216 H 101 Random Glucose Calcium Vancomycin Trough 06/16/25 06/16/25 06/16/25 06:04 07:05 07:06 MCV 84.1 MCH 27.5 MCHC 32.7 RDW 14.8 Plt Count 541 H MPV 9.9 Absolute Nucleated RBC 0.000 Nucleated RBC % (auto) 0.0 Anion Gap 11 L Estim Creat Clear Calc 72.7 Estimated GFR > 60 POC Glucose 142 H Random Glucose 136 H Calcium 9.1 Vancomycin Trough 13.6 06/16/25 07:20 MCV MCH MCHC RDW Plt Count MPV Absolute Nucleated RBC Nucleated RBC % (auto) Anion Gap Estim Creat Clear Calc Estimated GFR POC Glucose 138 H Random Glucose Calcium Vancomycin Trough Microbiology Microbiology Results: Microbiology 06/14/25 17:44 Blood Culture - Preliminary Blood - Venous No growth after 24 hours. 06/14/25 15:57 Blood Culture - Preliminary Blood - Venous No growth after 24 hours. 06/14/25 19:58 Gram Stain - Final Foot Right Routine Culture - Preliminary Culture in progress. Assessment and Plan (1) Osteomyelitis: Status: Acute Plan Assessment; 64-year-old male who presented to hospital after being seen earlier today by vascular surgery, with worsening right foot infection with purulent drainage, in the ED x-ray showed progression of osteomyelitis, plans on taken to the OR on Wednesday for transmetatarsal amputation. Currently on IV Zosyn and vancomycin. Sepsis secondary to Right foot osteomyelitis Right foot osteomyelitis Leukocytosis and thrombocytosis, likely secondary to above, improving PAD, chronic -labs and imaging reviewed with right foot x-ray showing destructive changes in the head and neck of the 2nd metatarsal consistent with progression of osteomyelitis -s/p Sepsis bolus, continue w/ IV fluids -previously on daptomycin, continue vanc and Zosyn -multimodal pain management, initiated oxycontin 10mg BID -blood culture and wound culture ordered and pending. with current wound culture growing gram positive and gram negative organisms -vascular surgery consulted and following, plans on amputation on Wednesday -continue with daily labs T2 dm, chronic -Continue insulin sliding scale, basal insulin 10 units initiated we will adjust accordingly Anemia of chronic disease -continue to monitor and transfuse for hemoglobin less than 7 FEN: LR, replete as needed, diabetic GI PPX: Protonix 40 mg q.d. DVT PPX: Heparin 5000 units b.i.d. Code status: Full code Disposition: All questions and concerns with the patient were answered to satisfaction. All pertinent clinical documents, images and labs were reviewed. Total time managing care of this patient today: 55 minutes. Quality Stroke Does the patient have a stroke diagnosis?: No VTE Prior VTE?: No VTE Risk Level:: Medical - moderate - high VTE Device Contraindication: Treatment Not Indicated VTE Drug Contraindication: N/A - Med Ordered
[2025-06-16] MEDS: oxyCODONE HCl ER 10 MG TAB.ER.12H PO ×2 (11:00→20:41)
[2025-06-16 11:24] LABS: Glucose, Whole Blood 144 mg/dL (60-115)
[2025-06-16] MEDS: 0.9 % Sodium Chloride Flush 3 ML SYRINGE IVFLUSH (15:45)
[2025-06-16 16:14] LABS: Glucose, Whole Blood 213 mg/dL (60-115)
[2025-06-16 20:53] LABS: Glucose, Whole Blood 168 mg/dL (60-115)
[2025-06-16] MEDS: Insulin Glargine,Hum.rec.anlog 100 UNIT/ML 10 ML VIAL 10 UNIT SUBCUT (21:29)
[2025-06-16 23:01] LABS: Glucose, Whole Blood 98 mg/dL (60-115)
[2025-06-17] VITALS (8 sets, daily range): BP systolic 122–133; BP diastolic 55–85; PULSE 77–100; RESP 16–20; TEMP 36.1–36.6; O2SAT 96–100
[2025-06-17] MEDS: oxyCODONE HCl Immed Release 5 MG TABLET PO ×2 (06:17→15:17)
--- NOTE | 2025-06-17 07:08 | PC.NURSE ---
Pt has been verbally aggressive towards staff and demanding throughout the night. Around 06:00, pt became more aggressive towards staff, trying to get physical, face reddened w/ anger, and accusatory. This marketing underwriter informed the Nursing Attending Radiologist and Security about the pt's behavior. On coming RN was informed as well about the pt's behavior this morning. Will continue to monitor the pt's behavior.
[2025-06-17 07:27] LABS: Glucose, Whole Blood 62 mg/dL (60-115)
[2025-06-17 08:06] LABS: Hematocrit 30.6 % (42.0-52.0); Hemoglobin 9.9 g/dl (14.0-18.0); Mean Corpuscular HGB Conc 32.4 g/dl (31.0-36.0); Mean Corpuscular Hemoglobin 26.8 pg (27.0-33.0); Mean Corpuscular Volume 82.9 fL (80.0-98.0); NRBC Abs Auto 0.000 X10*3/uL (0.0-0.012); NRBC Pct Auto 0.0 /100WBC (0.0-0.2); Platelet Count 637 X10*3/uL (160-400); Red Blood Count 3.69 X10*6/uL (4.60-5.80); White Blood Count 15.0 X10*3/uL (4.8-10.8)
[2025-06-17] MEDS: Metoprolol Succinate ER 12.5 MG HALFTAB.ER.24H PO (08:21)
[2025-06-17] MEDS: Sacubitril/Valsartan 24/26 1 TAB TABLET PO ×2 (08:21→21:24)
[2025-06-17] MEDS: 0.9 % Sodium Chloride Flush 3 ML SYRINGE IVFLUSH ×3 (08:26→19:35)
--- NOTE | 2025-06-17 08:43 | P.PNIM_ITS ---
Subjective Subjective Date of Service: 06/17/25 Interval History: Patient seen and examined at bedside this morning, mentions that he is having continuous pain, wishes to have pain medication increased, as if he is not able to tolerated, would defer surgery until pain is under better control. Review of Systems Review of Systems: Yes all other systems are reviewed and are negative Physical Exam 2 Exam: Exam: General: AxOx3, in pain Head: AT/NC ENT: Moist mucous membranes Neck: supple CVS; RRR, S1 S2 normal Lungs: Clear bilateral breath sounds, no wheezes or crackles Abd: Soft non tender, non distended Ext: No calf tenderness MSK: moving all 4 limbs Skin: right foot wound w/ dressing in place with drainage Psych: Cooperative with exam Neurology: no focal deficit Vital Signs: Vital Signs: Last Vital Signs Temp 97.9 F 06/17/25 07:34 Pulse 80 06/17/25 08:21 Resp 16 06/17/25 07:34 BP 133/64 06/17/25 08:21 Pulse Ox 99 06/17/25 07:34 O2 Del Method Room Air 06/17/25 07:34 BMI result Body Mass Index 31.2 Objective Data Active Medications Acetaminophen (Acetaminophen 325 Mg Tablet) 650 mg PO Q6H PRN PRN Reason: Pain, Mild 1-3,fever,headache Atorvastatin Calcium (Atorvastatin Calcium 80 Mg Tablet) 80 mg PO DAILY [facility]S [facility]CLUDE 234 BEDS AT THE [facility] Last Admin: 06/17/25 08:21 Dose: 80 mg Documented By: CHLOE Calcium Carbonate (Calcium Carbonate 750 Mg Tab.Chew) 750 mg PO Q4H PRN PRN Reason: Heartburn Dextrose (Dextrose 50 % 25 Gm/50 Ml Syringe) 25 gm IVPUSH Q15M PRN; Protocol PRN Reason: per Hypoglycemia Standing Ord. Glucose (Glucose Gel 15 Gm Gel..Gram.) 15 gm PO Q15M PRN; Protocol PRN Reason: per Hypoglycemia Standing Ord. Heparin Sodium (Porcine) (Heparin Sodium,Porcine 5,000 Unit/Ml Vial) 5,000 unit SUBCUT Q12H [facility]S [facility]CLUDE 234 BEDS AT THE [facility] Last Admin: 06/17/25 08:21 Dose: 5,000 unit Documented By: CHLOE Hydromorphone HCl (Hydromorphone Hcl 1 Mg/Ml Syringe) 4 mg IVPUSH Q3H PRN; Protocol PRN Reason: Pain, Severe (Pain Scale 7-10) Piperacillin Sod/Tazobactam (Sod 4.5 gm/ Sodium Chloride) 100 mls @ 200 mls/hr IV Q6H [facility]S INCLUDE 234 BEDS AT THE [facility] Last Admin: 06/17/25 08:22 Dose: 200 mls/hr Documented By: CHLOE Vancomycin HCl 1,000 mg/ (Sodium Chloride) 270 mls @ 270 mls/hr IV Q12H [facility]S INCLUDE 234 BEDS AT THE [facility] Last Infusion: 06/16/25 22:31 Dose: Infused Documented By: MADDIE Insulin Glargine (Insulin Glargine,Hum.Rec.Anlog 100 Unit/Ml 10 Ml Vial) 10 unit SUBCUT BEDTIME [facility]S INCLUDE 234 BEDS AT THE [facility] Last Admin: 06/16/25 21:29 Dose: 10 unit Documented By: MADDIE Insulin Human Lispro (Insulin Lispro 100 Unit/Ml 3 Ml Vial) 0 unit SUBCUT QIDACHS COUNTS INCLUDE 234 BEDS AT THE [facility]; Protocol Last Admin: 06/17/25 07:32 Dose: Not Given Documented By: CHLOE Non-Admin Reason: No Insulin Coverage Magnesium Hydroxide (Milk Of Magnesia 30 Ml Oral.Susp) 30 ml PO DAILY PRN PRN Reason: Constipation Melatonin (Melatonin 3 Mg Tablet) 6 mg PO BEDTIME PRN PRN Reason: Insomnia Metoprolol Succinate (Metoprolol Succinate Er 12.5 Mg Halftab.Er.24h) 12.5 mg PO DAILY [facility]S INCLUDE 234 BEDS AT THE [facility]; Protocol Last Admin: 06/17/25 08:21 Dose: 12.5 mg Documented By: CHLOE Oxycodone HCl (Oxycodone Hcl Immed Release 5 Mg Tablet) 5 mg PO Q3H PRN PRN Reason: Pain, Moderate(Pain Scale 4-6) Last Admin: 06/17/25 06:17 Dose: 5 mg Documented By: MADDIE Comments: per pt request Oxycodone HCl (Oxycodone Hcl Er 10 Mg Tab.Er.12h) 20 mg PO BID COUNTS INCLUDE 234 BEDS AT THE [facility] Pantoprazole Sodium (Pantoprazole Sodium 40 Mg/10 Ml Vial) 40 mg IVPUSH DAILY@0630 COUNTS INCLUDE 234 BEDS AT THE [facility] Last Admin: 06/17/25 06:35 Dose: Not Given Documented By: MADDIE Non-Admin Reason: Patient Refused Pharmacy Consult (Consult Rx Vancomycin Dosing) 1 each MISCELLANE DAILY PRN PRN Reason: Consult order Sacubitril/Valsartan (Sacubitril/Valsartan 1 Tab Tablet) 1 tab PO BID [facility]S INCLUDE 234 BEDS AT THE [facility]; Protocol Last Admin: 06/17/25 08:21 Dose: 1 tab Documented By: CHLOE Sodium Chloride (0.9 % Sodium Chloride Flush 3 Ml Syringe) 3 ml IVFLUSH QSHIFT COUNTS INCLUDE 234 BEDS AT THE [facility] Last Admin: 06/17/25 08:26 Dose: 3 ml Documented By: CHLOE Trazodone HCl (Trazodone Hcl 100 Mg Tablet) 100 mg PO BEDTIME [facility]S INCLUDE 234 BEDS AT THE [facility] Last Admin: 06/16/25 23:22 Dose: Not Given Documented By: MADDIE Non-Admin Reason: Patient Refused Labs 06/17/25 06:46 06/17/25 06:46 Labs: Laboratory Results - last 24 hr 06/16/25 06/16/25 06/16/25 11:17 16:06 20:49 MCV MCH MCHC RDW Plt Count MPV Absolute Nucleated RBC Nucleated RBC % (auto) POC Glucose 144 H 213 H 168 H Random Vancomycin 06/16/25 06/17/25 06/17/25 22:55 06:46 07:16 MCV 82.9 MCH 26.8 L MCHC 32.4 RDW 14.6 Plt Count 637 H MPV 10.4 Absolute Nucleated RBC 0.000 Nucleated RBC % (auto) 0.0 POC Glucose 98 62 Random Vancomycin 16.5 Microbiology Microbiology Results: Microbiology 06/14/25 19:58 Gram Stain - Final Foot Right Routine Culture - Final Escherichia coli Morganella morganii ssp javier 06/14/25 17:44 Blood Culture - Preliminary Blood - Venous No growth after 48 hours. 06/14/25 15:57 Blood Culture - Preliminary Blood - Venous No growth after 48 hours. Assessment and Plan (1) Osteomyelitis: Status: Acute Plan Assessment; 64-year-old male who presented to hospital after being seen earlier today by vascular surgery, with worsening right foot infection with purulent drainage, in the ED x-ray showed progression of osteomyelitis, plans on taken to the OR on Wednesday for transmetatarsal amputation. Currently on IV Zosyn and vancomycin. Sepsis secondary to Right foot osteomyelitis Right foot osteomyelitis Leukocytosis and thrombocytosis, likely secondary to above, improving PAD, chronic -labs and imaging reviewed with right foot x-ray showing destructive changes in the head and neck of the 2nd metatarsal consistent with progression of osteomyelitis -s/p Sepsis bolus and IV fluids -previously on daptomycin, continue vanc and Zosyn -multimodal pain management, increased oxycontin to 20mg BID and dilaudid to 4mg. PRN narcan if needed -blood culture and wound culture ordered and pending. with current wound culture growing gram positive and gram negative organisms -vascular surgery consulted and following, plans on amputation on Wednesday -continue with daily labs T2 dm, chronic -Continue insulin sliding scale, basal insulin 10 units initiated we will adjust accordingly Anemia of chronic disease -continue to monitor and transfuse for hemoglobin less than 7 FEN: LR, replete as needed, diabetic GI PPX: Protonix 40 mg q.d. DVT PPX: Heparin 5000 units b.i.d. Code status: Full code Disposition: All questions and concerns with the patient were answered to satisfaction. All pertinent clinical documents, images and labs were reviewed. Total time managing care of this patient today: 55 minutes. Quality Stroke Does the patient have a stroke diagnosis?: No VTE Prior VTE?: No VTE Risk Level:: Medical - moderate - high VTE Device Contraindication: Treatment Not Indicated VTE Drug Contraindication: N/A - Med Ordered
[2025-06-17 08:58] LABS: Anion Gap 15 (12-20); Blood Urea Nitrogen 20 mg/dL (9-16); Calcium 9.2 mg/dL (8.4-10.2); Carbon Dioxide 25 mmol/L (22-29); Chloride 97 mmol/L (96-108); Creatinine Clr Calc Pharmacy 73.3; Estimated Glomerular Filt Rate > 60; Potassium 4.9 mmol/L (3.3-5.1); Sodium 132 mmol/L (135-145)
[2025-06-17] MEDS: oxyCODONE HCl ER 10 MG TAB.ER.12H 20 MG PO ×2 (08:58→21:24)
--- NOTE | 2025-06-17 09:01 | HE.PHANOTE ---
RE VANCO patients level came back this morning at 16.5. Scr has been stable, will continue to monitor. Will get another level 06/19 @0700 to ensure safety vs efficacy. predicted AUC 546, indication is osteo
[2025-06-17 09:08] LABS: Glucose, Whole Blood 173 mg/dL (60-115)
[2025-06-17 11:42] LABS: Glucose, Whole Blood 91 mg/dL (60-115)
[2025-06-17 16:26] LABS: Glucose, Whole Blood 209 mg/dL (60-115)
[2025-06-17 18:22] LABS: Glucose, Whole Blood 171 mg/dL (60-115)
--- NOTE | 2025-06-17 18:37 | PC.NURSE ---
patient made high fall risk d/t receiving frequent IV and PO narcotics, pt falling asleep during conversation and dressing change however still stating 10/10 pain. Pt has been increasingly unsteady on his feet and not allowing staff to assist while getting up. Patient refusing this RN to put bed alarm on or allow tele sitter placement for safety. Dr. Freeman made aware.
[2025-06-17 20:51] LABS: Glucose, Whole Blood 120 mg/dL (60-115)
[2025-06-17] MEDS: Insulin Glargine,Hum.rec.anlog 100 UNIT/ML 10 ML VIAL 10 UNIT SUBCUT (21:21)
[2025-06-18] VITALS (11 sets, daily range): BP systolic 95–126; BP diastolic 56–65; PULSE 85–100; RESP 10–20; TEMP 36.2–36.8; O2SAT 95–97
--- NOTE | 2025-06-18 04:36 | PC.NURSE ---
pt high fall risk but refusing bed/chair alarms. pt becomes condescending and rude when giving assistance. Pt has been educated on safety measures.
[2025-06-18 06:24] LABS: Hematocrit 27.2 % (42.0-52.0); Hemoglobin 9.1 g/dl (14.0-18.0); Mean Corpuscular HGB Conc 33.5 g/dl (31.0-36.0); Mean Corpuscular Hemoglobin 27.4 pg (27.0-33.0); Mean Corpuscular Volume 81.9 fL (80.0-98.0); NRBC Abs Auto 0.000 X10*3/uL (0.0-0.012); NRBC Pct Auto 0.0 /100WBC (0.0-0.2); Platelet Count 503 X10*3/uL (160-400); Red Blood Count 3.32 X10*6/uL (4.60-5.80); White Blood Count 16.2 X10*3/uL (4.8-10.8)
[2025-06-18] MEDS: oxyCODONE HCl ER 10 MG TAB.ER.12H 20 MG PO (06:27)
[2025-06-18 07:13] LABS: Glucose, Whole Blood 56 mg/dL (60-115)
[2025-06-18 07:20] LABS: Anion Gap 13 (12-20); Blood Urea Nitrogen 27 mg/dL (9-16); Calcium 8.8 mg/dL (8.4-10.2); Carbon Dioxide 22 mmol/L (22-29); Chloride 99 mmol/L (96-108); Creatinine Clr Calc Pharmacy 55.6; Estimated Glomerular Filt Rate 47; Potassium 4.3 mmol/L (3.3-5.1); Sodium 130 mmol/L (135-145)
--- NOTE | 2025-06-18 07:22 | MHC.SHP ---
Pre-Procedural Eval Section A - 24 Hr Update-Section A only Date of Service: 06/18/25 The patient is an INPATIENT: Yes Changes since office visit: Yes Patient answered all questions The patient has been examined within 24 hours of the surgical procedure. The History & Physical has been completed within 30 days and I have reviewed it.: Yes Section B - Complete if H&P > 30 days Chief Complaint: right foot osteo Allergies: Allergies Allergy/AdvReac Type Severity Reaction Status Date / Time No Known Allergies Allergy Verified 06/14/25 15:32 Plan I have reviewed the history and physical and performed a pertinent physical examination on my patient. No changes have occurred unless specified. Time Spent With Patient Time: Total time managing care of this patient today ____ minutes.
[2025-06-18 07:41] LABS: Glucose, Whole Blood 133 mg/dL (60-115)
[2025-06-18] MEDS: Metoprolol Succinate ER 12.5 MG HALFTAB.ER.24H PO (08:15)
[2025-06-18] MEDS: Sacubitril/Valsartan 24/26 1 TAB TABLET PO ×2 (08:16→20:49)
[2025-06-18] MEDS: 0.9 % Sodium Chloride Flush 3 ML SYRINGE IVFLUSH ×2 (08:21→22:01)
--- NOTE | 2025-06-18 08:33 | HO.PM.IMPN ---
Subjective Subjective Date of Service: 06/18/25 Interval History: Patient seen examined at bedside this morning, patient states that his pain is under better control, has been having episodes of hypoglycemia, creatinine elevated today, patient is scheduled for TMA. Review of Systems Review of Systems: Yes all other systems are reviewed and are negative Physical Exam Exam: Exam: General: AxOx3, in mild pain Head: AT/NC ENT: Moist mucous membranes Neck: supple CVS; RRR, S1 S2 normal Lungs: Clear bilateral breath sounds, no wheezes or crackles Abd: Soft non tender, non distended Ext: No calf tenderness MSK: moving all 4 limbs Skin: right foot wound w/ dressing in place Psych: Cooperative with exam Neurology: no focal deficit Vital Signs: Vital Signs: Last Vital Signs Temp 97.5 F 06/18/25 07:07 Pulse 98 06/18/25 07:07 Resp 18 06/18/25 07:07 BP 120/59 L 06/18/25 07:07 Pulse Ox 95 06/18/25 07:07 O2 Del Method Room Air 06/18/25 07:07 BMI result Body Mass Index 31.2 Objective Data Active Medications Acetaminophen (Acetaminophen 325 Mg Tablet) 650 mg PO Q6H PRN PRN Reason: Pain, Mild 1-3,fever,headache Atorvastatin Calcium (Atorvastatin Calcium 80 Mg Tablet) 80 mg PO DAILY [facility] Last Admin: 06/18/25 06:28 Dose: 80 mg Documented By: SAMIR Calamine (Calamine/Zinc Oxide Lotion 177 Ml Bottle) 1 appl TOPICAL Q3H PRN; Protocol PRN Reason: Itching Calcium Carbonate (Calcium Carbonate 750 Mg Tab.Chew) 750 mg PO Q4H PRN PRN Reason: Heartburn Dextrose (Dextrose 50 % 25 Gm/50 Ml Syringe) 25 gm IVPUSH Q15M PRN; Protocol PRN Reason: per Hypoglycemia Standing Ord. Last Admin: 06/18/25 07:16 Dose: 25 gm Documented By: SOPHIA Glucose (Glucose Gel 15 Gm Gel..Gram.) 15 gm PO Q15M PRN; Protocol PRN Reason: per Hypoglycemia Standing Ord. Heparin Sodium (Porcine) (Heparin Sodium,Porcine 5,000 Unit/Ml Vial) 5,000 unit SUBCUT Q12H [facility] Last Admin: 06/18/25 07:15 Dose: Not Given Documented By: SOPHIA Non-Admin Reason: scheduled for surgery Hydromorphone HCl (Hydromorphone Hcl 1 Mg/Ml Syringe) 4 mg IVPUSH Q3H PRN; Protocol PRN Reason: Pain, Severe (Pain Scale 7-10) Last Admin: 06/18/25 08:15 Dose: 4 mg Documented By: SOPHIA Piperacillin Sod/Tazobactam (Sod 4.5 gm/ Sodium Chloride) 100 mls @ 200 mls/hr IV Q6H [facility] Last Admin: 06/18/25 08:17 Dose: 200 mls/hr Documented By: SOPHIA Vancomycin HCl 1,000 mg/ (Sodium Chloride) 270 mls @ 270 mls/hr IV Q12H [facility] Last Infusion: 06/17/25 22:47 Dose: Infused Documented By: MAGAN Lactated Ringer's (Lr) 1,000 mls @ 100 mls/hr IVCONT .Q10H [facility] Insulin Glargine (Insulin Glargine,Hum.Rec.Anlog 100 Unit/Ml 10 Ml Vial) 10 unit SUBCUT BEDTIME [facility] Last Admin: 06/17/25 21:21 Dose: 10 unit Documented By: MAGAN Insulin Human Lispro (Insulin Lispro 100 Unit/Ml 3 Ml Vial) 0 unit SUBCUT QIDACHS [facility]; Protocol Last Admin: 06/18/25 07:15 Dose: Not Given Documented By: SOPHIA Non-Admin Reason: No Insulin Coverage Magnesium Hydroxide (Milk Of Magnesia 30 Ml Oral.Susp) 30 ml PO DAILY PRN PRN Reason: Constipation Melatonin (Melatonin 3 Mg Tablet) 6 mg PO BEDTIME PRN PRN Reason: Insomnia Metoprolol Succinate (Metoprolol Succinate Er 12.5 Mg Halftab.Er.24h) 12.5 mg PO DAILY [facility]; Protocol Last Admin: 06/18/25 08:15 Dose: 12.5 mg Documented By: SOPHIA Naloxone HCl (Naloxone Hcl 0.4 Mg/Ml Vial) 0.1 mg IVPUSH Q5M PRN PRN Reason: Respiratory Rate < 10 Oxycodone HCl (Oxycodone Hcl Immed Release 5 Mg Tablet) 5 mg PO Q3H PRN PRN Reason: Pain, Moderate(Pain Scale 4-6) Last Admin: 06/17/25 15:17 Dose: 5 mg Documented By: CHLOE Oxycodone HCl (Oxycodone Hcl Er 10 Mg Tab.Er.12h) 20 mg PO BID [facility] Last Admin: 06/18/25 06:27 Dose: 20 mg Documented By: SAMIR Pharmacy Consult (Consult Rx Vancomycin Dosing) 1 each MISCELLANE DAILY PRN PRN Reason: Consult order Sacubitril/Valsartan (Sacubitril/Valsartan 1 Tab Tablet) 1 tab PO BID [facility]; Protocol Last Admin: 06/18/25 08:16 Dose: 1 tab Documented By: SOPHIA Sodium Chloride (0.9 % Sodium Chloride Flush 3 Ml Syringe) 3 ml IVFLUSH QSHIFT [facility] Last Admin: 06/18/25 08:21 Dose: 3 ml Documented By: SOPHIA Trazodone HCl (Trazodone Hcl 100 Mg Tablet) 100 mg PO BEDTIME [facility] Last Admin: 06/17/25 22:12 Dose: Not Given Documented By: MAGAN Non-Admin Reason: Patient Refused Labs 06/18/25 05:42 06/18/25 05:42 Labs: Laboratory Results - last 24 hr 06/17/25 06/17/25 06/17/25 06:46 09:00 11:24 MCV MCH MCHC RDW Plt Count MPV Absolute Nucleated RBC Nucleated RBC % (auto) Anion Gap 15 Estim Creat Clear Calc 73.3 Estimated GFR > 60 POC Glucose 173 H 91 Random Glucose 41 L* Calcium 9.2 Random Vancomycin 16.5 06/17/25 06/17/25 06/17/25 16:18 18:18 19:59 MCV MCH MCHC RDW Plt Count MPV Absolute Nucleated RBC Nucleated RBC % (auto) Anion Gap Estim Creat Clear Calc Estimated GFR POC Glucose 209 H 171 H 120 H Random Glucose Calcium Random Vancomycin 06/18/25 06/18/25 06/18/25 05:42 07:09 07:38 MCV 81.9 MCH 27.4 MCHC 33.5 RDW 14.3 Plt Count 503 H MPV 10.4 Absolute Nucleated RBC 0.000 Nucleated RBC % (auto) 0.0 Anion Gap 13 Estim Creat Clear Calc 55.6 Estimated GFR 47 POC Glucose 56 L* 133 H Random Glucose 49 L* Calcium 8.8 Random Vancomycin Microbiology Microbiology Results: Microbiology 06/14/25 19:58 Gram Stain - Final Foot Right Routine Culture - Final Escherichia coli Morganella morganii ssp javier Assessment and Plan (1) Osteomyelitis: Status: Acute Plan Assessment; 64-year-old male who presented to hospital after being seen earlier today by vascular surgery, with worsening right foot infection with purulent drainage, in the ED x-ray showed progression of osteomyelitis, plans on taken to the OR on 06/18 at 11:00 for transmetatarsal amputation. Currently on IV Zosyn and vancomycin. Sepsis secondary to Right foot osteomyelitis Right foot osteomyelitis Leukocytosis and thrombocytosis, likely secondary to above, improving PAD, chronic -labs and imaging reviewed with right foot x-ray showing destructive changes in the head and neck of the 2nd metatarsal consistent with progression of osteomyelitis -blood culture ordered and pending. Wound culture growing E coli and Morganella -s/p Sepsis bolus and IV fluids -previously on daptomycin, We will switch from vanc and Zosyn to meropenem given Morganella species. -multimodal pain management, oxycontin 20mg BID and dilaudid 4mg. PRN narcan if needed -vascular surgery consulted and following, plans on amputation on today -continue with daily labs T2 dm, chronic -Continue insulin sliding scale, basal insulin d/c at will leave ISS. Anemia of chronic disease -continue to monitor and transfuse for hemoglobin less than 7 FEN: LR, replete as needed, diabetic GI PPX: Protonix 40 mg q.d. DVT PPX: Heparin 5000 units b.i.d. Code status: Full code Disposition: All questions and concerns with the patient were answered to satisfaction. All pertinent clinical documents, images and labs were reviewed. Total time managing care of this patient today: 55 minutes. Quality Stroke Does the patient have a stroke diagnosis?: No VTE Prior VTE?: No VTE Risk Level:: Medical - moderate - high VTE Device Contraindication: Treatment Not Indicated VTE Drug Contraindication: N/A - Med Ordered
[2025-06-18] MEDS: Lactated Ringers 1,000 ML 100 ML IVCONT ×2 (09:21→14:06)
--- NOTE | 2025-06-18 09:53 | PC.NURSE ---
Patient off unit to OR , transported by OR staff in bed
--- NOTE | 2025-06-18 10:30 | HO.ANESPROP2 ---
Documented by User: Cici Vasquez NP 06/15/25 14:31 HPI - Anesthesia Eval Consult details Narrative: 64 yr old male for right foot amputation transmetarsal s/p right toe amputation with MAC 03/30/2025 Ischemic cardiomyopathy: LVEF 25-35% on echo from 11/2023; nuclear study was ordered due to new wall motion abnormalities but not yet done: [place] [facility] [place] [facility] [place]; however pt follows [facility] [place] cards, last visit 05/29/25, had LE edema, declined lasix, no anginal symptoms were reported. H/O complete heart block: S/P [place] XT DR CERDA SureScan PPM placed at [facility] on 01/20/2023; device check done 05/07/25, as documented from 05/29/25 [facility] cards note, , [employer]; normal lead and device function. No episodes since last download. AP 3.11%, QUILL CLEANER 96.85%. Battery is 10 yrs, 8 months. 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 Smoker: still smoking per 05/29/25 cardiology note Anesthesia Pre-Procedure Meds Is the patient on any of the following meds?: GLP1/DPP4 and SGLT2 Inhib PMFSH Active Problems Active Problems: All Active Problems Acute osteomyelitis of right foot (Acute) CKD stage 3a, GFR 45-59 ml/min (Acute) Infection of amputation site of lower extremity (Acute) Diabetic osteomyelitis (Acute) Osteomyelitis (Acute) Tinea unguium (Acute) Onychomycosis (Acute) Lumbar spondylosis (Acute) Vertebrogenic low back pain (Acute) Dog bite of right hand (Acute) Lumbar spinal stenosis (Acute) Discitis of lumbosacral region (Acute) Bilateral hip pain (Acute) Lumbar radiculopathy (Acute) Vaccine counseling (Acute) Normal physical examination, routine (Acute) Lumbar degenerative disc disease (Acute) Back pain (Acute) Erectile dysfunction associated with type 2 diabetes mellitus (Acute) Amputated toe of left foot (Acute) Insomnia (Acute) Smoker (Acute) Anemia (Acute) Low testosterone (Acute) Stroke (Acute) Hyperlipidemia (Acute) Past Medical History Medical History Ischemic cardiomyopathy PAD (peripheral artery disease) Diabetic ulcer of right foot Diabetes Osteomyelitis of second toe of right foot Back pain Smoker Insomnia Amputated toe of left foot Anemia Low testosterone Hyperlipidemia Hypertension Carotid atherosclerosis Erectile dysfunction associated with type 2 diabetes mellitus Lumbar degenerative disc disease Gall bladder disease Finding of floating rib Spine disorder Pacemaker Stroke Diabetes 1.5, managed as type 2 Family History Family history of problems with anesthesia: No Surgical History Surgical History History of surgery History of surgery History of appendectomy History of Problems with Anesthesia: No Social History Social History Household Members: Other Household Members Other:: roomate Both parents involved: No Caregiver staying overnight: No Housing: House Are you a primary care manager cna to a significant other at home: No Do you presently have visiting nurse or other home services: Yes (2x week) 75 years or older and lives alone: No Alcohol intake: current Alcohol intake frequency: does not drink Alcohol type: other Comment: single malt scotch Patient Tobacco Use Status: Current everyday Tobacco user Tobacco use type: Cigarette Cigarette Packs Per Day: 0.75 Cigarettes Per Day: 15.0 Years Smoked: 45 e-Cigarette/Vaping Use: Never Used Second Hand Smoke Exposure: No Substance Use Type: Marijuana Special yamilex needs: No service: No Current occupational status: retired Cognitive needs: No Hearing needs: No Vision needs: No Meds Allergies Allergy/AdvReac Type Severity Reaction Status Date / Time No Known Allergies Allergy Verified 06/14/25 15:32 Active Medications: Current Medications Acetaminophen (Acetaminophen 325 Mg Tablet) 650 mg PO Q6H PRN PRN Reason: Pain, Mild 1-3,fever,headache Atorvastatin Calcium (Atorvastatin Calcium 80 Mg Tablet) 80 mg PO DAILY [facility] Last Admin: 06/15/25 08:24 Dose: 80 mg Calcium Carbonate (Calcium Carbonate 750 Mg Tab.Chew) 750 mg PO Q4H PRN PRN Reason: Heartburn Dextrose (Dextrose 50 % 25 Gm/50 Ml Syringe) 25 gm IVPUSH Q15M PRN; Protocol PRN Reason: per Hypoglycemia Standing Ord. Glucose (Glucose Gel 15 Gm Gel..Gram.) 15 gm PO Q15M PRN; Protocol PRN Reason: per Hypoglycemia Standing Ord. Heparin Sodium (Porcine) (Heparin Sodium,Porcine 5,000 Unit/Ml Vial) 5,000 unit SUBCUT Q12H [facility] Last Admin: 06/15/25 08:24 Dose: 5,000 unit Hydromorphone HCl (Hydromorphone Hcl 1 Mg/Ml Syringe) 1 mg IVPUSH Q4H PRN; Protocol PRN Reason: Pain, Moderate(Pain Scale 4-6) Last Admin: 06/15/25 11:06 Dose: 1 mg Hydromorphone HCl (Hydromorphone Hcl 1 Mg/Ml Syringe) 2 mg IVPUSH Q4H PRN; Protocol PRN Reason: Pain, Severe (Pain Scale 7-10) Last Admin: 06/15/25 12:51 Dose: 2 mg Lactated Ringer's (Lr) 1,000 mls @ 100 mls/hr IVCONT .Q10H [facility] Last Admin: 06/15/25 05:32 Dose: 100 mls/hr Piperacillin Sod/Tazobactam (Sod 4.5 gm/ Sodium Chloride) 100 mls @ 200 mls/hr IV Q6H [facility] Last Infusion: 06/15/25 08:53 Dose: Infused Vancomycin HCl 750 mg/ Sodium (Chloride) 265 mls @ 265 mls/hr IV Q12H [facility] Last Infusion: 06/15/25 09:55 Dose: Infused Insulin Glargine (Insulin Glargine,Hum.Rec.Anlog 100 Unit/Ml 10 Ml Vial) 10 unit SUBCUT BEDTIME [facility] Last Admin: 06/14/25 21:28 Dose: 10 unit Insulin Human Lispro (Insulin Lispro 100 Unit/Ml 3 Ml Vial) 0 unit SUBCUT QIDACHS [facility]; Protocol Last Admin: 06/15/25 12:51 Dose: Not Given Magnesium Hydroxide (Milk Of Magnesia 30 Ml Oral.Susp) 30 ml PO DAILY PRN PRN Reason: Constipation Melatonin (Melatonin 3 Mg Tablet) 6 mg PO BEDTIME PRN PRN Reason: Insomnia Metoprolol Succinate (Metoprolol Succinate Er 12.5 Mg Halftab.Er.24h) 12.5 mg PO DAILY [facility]; Protocol Last Admin: 06/15/25 10:23 Dose: 12.5 mg Pantoprazole Sodium (Pantoprazole Sodium 40 Mg/10 Ml Vial) 40 mg IVPUSH DAILY@0630 [facility] Last Admin: 06/15/25 06:27 Dose: 40 mg Pharmacy Consult (Consult Rx Vancomycin Dosing) 1 each MISCELLANE DAILY PRN PRN Reason: Consult order Sacubitril/Valsartan (Sacubitril/Valsartan 1 Tab Tablet) 1 tab PO BID [facility]; Protocol Last Admin: 06/15/25 10:23 Dose: 1 tab Sodium Chloride (0.9 % Sodium Chloride Flush 3 Ml Syringe) 3 ml IVFLUSH QSHIFT [facility] Last Admin: 06/15/25 08:23 Dose: Not Given Trazodone HCl (Trazodone Hcl 100 Mg Tablet) 100 mg PO BEDTIME [facility] Home Medications ?Medication ?Instructions ?Recorded ?Confirmed ?Last Taken ?Type flash glucose sensor (FreeStyle 11/24/23 06/08/25 Unknown History Dori 2 Sensor kit) pen needle, diabetic 32 gauge x 11/24/23 06/08/25 Unknown History 07/17 (NovoFine Plus) metformin 1,000 mg tablet 1,000 mg PO BID 03/20/24 06/14/25 06/13/25 History insulin degludec 100 unit/mL (3 15 - 20 unit subcut BEDTIME 03/07/25 06/14/25 06/13/25 History mL) subcutaneous pen (Tresiba FlexTouch U-100 insulin) metoprolol succinate 25 mg 12.5 mg PO DAILY 03/22/25 06/14/25 06/13/25 History tablet,extended release 24 hr glipizide 5 mg tablet, extended 5 mg PO DAILY 03/23/25 06/14/25 06/13/25 History release 24 hr clotrimazole 1 % topical cream 1 appl topical BID PRN Rash 06/04/25 06/14/25 Unknown History insulin lispro 100 unit/mL See Protocol subcut TIDAC 06/04/25 06/14/25 06/13/25 History subcutaneous pen (Humalog KwikPen (U-100) Insulin) trazodone 100 mg tablet 100 mg PO BEDTIME 06/04/25 06/14/25 06/13/25 History Exam Height,Weight and Vital Signs: Height 5 ft 9 in Weight 83.4 kg Last Vital Signs Temp 97.8 F 06/15/25 12:18 Pulse 77 06/15/25 12:18 Resp 20 06/15/25 12:18 BP 132/64 06/15/25 12:18 Pulse Ox 99 06/15/25 12:18 O2 Del Method Room Air 06/15/25 12:18 Pertinent Lab Results Pertinent Lab Results: Laboratory Tests 06/14/25 06/14/25 06/14/25 15:56 15:57 21:11 WBC 16.7 H RBC 3.51 L Hgb 9.4 L Hct 28.6 L MCV 81.5 MCH 26.8 L MCHC 32.9 RDW 14.6 Plt Count 528 H MPV 9.8 Immature Gran % (Auto) 0.7 H Neut % (Auto) 79.8 H Lymph % (Auto) 11.2 L [place] % (Auto) 7.4 Eos % (Auto) 0.5 Baso % (Auto) 0.4 Lymph # (Auto) 1.9 [place] # (Auto) 1.2 Eos # (Auto) 0.1 Baso # (Auto) 0.1 Abs Immat Gran (auto) 0.11 H Absolute Neuts (auto) 13.4 H Absolute Nucleated RBC 0.000 Nucleated RBC % (auto) 0.0 ESR 64 H Sodium 134 L Potassium 4.9 Chloride 101 Carbon Dioxide 25 Anion Gap 13 BUN 21 H Creatinine 1.15 Estim Creat Clear Calc 63.1 Estimated GFR > 60 POC Glucose 313 H Random Glucose 329 H Lactic Acid 1.2 Calcium 9.1 Total Bilirubin 0.3 AST 34 ALT 27 Alkaline Phosphatase 91 C-Reactive Protein 6.60 H Total Protein 6.7 Albumin 3.6 06/15/25 06/15/25 06/15/25 03:49 07:28 12:33 WBC 13.0 H RBC 3.56 L Hgb 9.7 L Hct 29.9 L MCV 84.0 MCH 27.2 MCHC 32.4 RDW 14.5 Plt Count 539 H MPV 9.8 Immature Gran % (Auto) Neut % (Auto) Lymph % (Auto) [place] % (Auto) Eos % (Auto) Baso % (Auto) Lymph # (Auto) [place] # (Auto) Eos # (Auto) Baso # (Auto) Abs Immat Gran (auto) Absolute Neuts (auto) Absolute Nucleated RBC 0.000 Nucleated RBC % (auto) 0.0 ESR Sodium 137 Potassium 4.8 Chloride 105 Carbon Dioxide 25 Anion Gap 12 BUN 17 H Creatinine 1.14 Estim Creat Clear Calc 63.7 Estimated GFR > 60 POC Glucose 134 H 118 H Random Glucose 90 Lactic Acid Calcium 8.8 Total Bilirubin AST ALT Alkaline Phosphatase C-Reactive Protein Total Protein Albumin Narrative Narrative: EKG 03/2025 Vent. Rate : 83 BPM Atrial Rate : 83 BPM P-R Int : 172 ms QRS Dur : 146 ms QT Int : 436 ms P-R-T Axes : 31 13 98 degrees QTcB Int : 512 ms Atrial-sensed ventricular-paced rhythm with occasional Premature ventricular complexes Abnormal ECG No previous ECGs available ECHO 11/2023 Left atrium moderately dilated Interarterial septum appears intact An agitated saline (bubble study) was performed and was normal at rest and with Valsalva. 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 The LVEF 25-35% No evidence of left ventricular thrombus Assessment and Plan Final Anesthetic Review Family History of Problems with Anesthesia: No History of Problems with Anesthesia: No Documented by User: Radha Goodman DO 06/18/25 11:33 HPI - Anesthesia Eval Anesthesia Pre-Procedure Meds Is the patient on any of the following meds?: GLP1/DPP4 and SGLT2 Inhib PMFSH Past Medical History Medical History Ischemic cardiomyopathy PAD (peripheral artery disease) Diabetic ulcer of right foot Diabetes Osteomyelitis of second toe of right foot Back pain Smoker Insomnia Amputated toe of left foot Anemia Low testosterone Hyperlipidemia Hypertension Carotid atherosclerosis Erectile dysfunction associated with type 2 diabetes mellitus Lumbar degenerative disc disease Gall bladder disease Finding of floating rib Spine disorder Pacemaker Stroke Diabetes 1.5, managed as type 2 Family History Family history of problems with anesthesia: No Surgical History Surgical History History of surgery History of surgery History of appendectomy History of Problems with Anesthesia: No Social History Social History Household Members: Other Household Members Other:: roomate Both parents involved: No Caregiver staying overnight: No Housing: House Are you a primary care manager cna to a significant other at home: No Do you presently have visiting nurse or other home services: Yes (2x week) 75 years or older and lives alone: No Alcohol intake: current Alcohol intake frequency: does not drink Alcohol type: other Comment: single malt scotch Patient Tobacco Use Status: Current everyday Tobacco user Tobacco use type: Cigarette Cigarette Packs Per Day: 0.75 Cigarettes Per Day: 15.0 Years Smoked: 45 e-Cigarette/Vaping Use: Never Used Second Hand Smoke Exposure: No Substance Use Type: Marijuana Special yamilex needs: No service: No Current occupational status: retired Cognitive needs: No Hearing needs: No Vision needs: No Meds Allergies Allergy/AdvReac Type Severity Reaction Status Date / Time No Known Allergies Allergy Verified 06/14/25 15:32 Home Medications ?Medication ?Instructions ?Recorded ?Confirmed ?Last Taken ?Type flash glucose sensor (FreeStyle 11/24/23 06/08/25 Unknown History Dori 2 Sensor kit) pen needle, diabetic 32 gauge x 11/24/23 06/08/25 Unknown History 07/17 (NovoFine Plus) metformin 1,000 mg tablet 1,000 mg PO BID 03/20/24 06/14/25 06/13/25 History insulin degludec 100 unit/mL (3 15 - 20 unit subcut BEDTIME 03/07/25 06/14/25 06/13/25 History mL) subcutaneous pen (Tresiba FlexTouch U-100 insulin) metoprolol succinate 25 mg 12.5 mg PO DAILY 03/22/25 06/14/25 06/13/25 History tablet,extended release 24 hr glipizide 5 mg tablet, extended 5 mg PO DAILY 03/23/25 06/14/25 06/13/25 History release 24 hr clotrimazole 1 % topical cream 1 appl topical BID PRN Rash 06/04/25 06/14/25 Unknown History insulin lispro 100 unit/mL See Protocol subcut TIDAC 06/04/25 06/14/25 06/13/25 History subcutaneous pen (Humalog KwikPen (U-100) Insulin) trazodone 100 mg tablet 100 mg PO BEDTIME 06/04/25 06/14/25 06/13/25 History Exam Exam Date and Time: 06/18/25 1030 Airway Mallampati Class: II TM Dist: >3cm Neck ROM: Full Loose/Missing/Broken Teeth: No (patient denies any loose or broken teeth) Heart: S1S2 Lungs: CTAB Assessment and Plan Assessment Anesthesia Assessment: Anesthesia Plan Discussed and Chart Reviewed Final Anesthetic Review Family History of Problems with Anesthesia: No History of Problems with Anesthesia: No NPO: Yes ASA Class: IV Final Preanesthetic Review: No Changes in Pt Med Stat, Meds/Allgs Chart Reviewed, Consent Obtained/Reviewed and Anes Risks/Benef Reviewed Patient Risk: High Procedure Risk: Intermediate Anesthetic Plan Anesthetic Plan: MAC:, Regional Block (right adductor canal block and right sciatic block) and Agree w/ Assess. and Plan Disposition: Standard PACU
--- NOTE | 2025-06-18 10:46 | P.CDIM_ITS ---
PROVIDER RESPONSE TEXT: To clarify, the appropriate diagnosis supported by the clinical indicators: Acute osteomyelitis QUERY TEXT: PHYSICIAN'S DOCUMENTATION REQUEST Date of Query: 06/18/2025 10:05 AM EST Patient Name: MARIE LUKE Admit Date: 06/15/2025 Dear Josh Wild MD, A review of the medical record indicates additional documentation may be needed. Please review below and update the documentation accordingly.. Clinical Indicators: Progress notes: Sepsis secondary to right foot osteomyelitis. Leukocytosis and thrombocytosis. X-ray showing destructive changes in the head and neck of the 2nd metatarsal consistent with progressive osteomyelitis. Plans for amputation. Oxycontin, Dilaudid, Zosyn, Vancomycin. Based on the above, please clarify in the Progress Notes further specificity regarding the acuity of the documented Osteomyelitis and place within the Plan of the progress note: Acute osteomyelitis Subacute osteomyelitis Chronic osteomyelitis Chronic multifocal osteomyelitis Other (explain) Clinically unable to determine (explain) Thank you, Amanda Larson, CCS, CDIS Use of terms such as suspected, likely, concern for, or probable (associated with a specific diagnosis that is being evaluated, monitored, or treated as if it exists) are acceptable and can be coded in the inpatient setting, when documented at the time of discharge. Please use your independent medical judgment in providing your response. THIS QUERY IS PART OF THE PERMANENT MEDICAL RECORD
--- NOTE | 2025-06-18 11:49 | W.PM.OPN ---
Operative Note Operative Note Date of Service: 06/18/25 Narrative: Operative note by [facility] Preoperative diagnosis: 1. Right foot diabetic ulceration 2. Osteomyelitis Postoperative diagnosis: Same Procedure: Right foot transmetatarsal amputation Surgeon:Viktor Blanca M.D. Dental Detail Representative: Alex BENTON Anesthesia: Block with sedation by Dr. Goodman Specimens: 1 Drains: None Estimated blood loss: 50 mL Indications: 64-year-old diabetic gentleman with prior toe amputation that had been nonhealing. There was actually the 3rd toe that had been nonhealing and purulent drainage. Now presents for transmetatarsal amputation The patient has signed the informed consent after reviewing risks, complications, benefits, and alternatives previously discussed with the patient. The patient was given the opportunity to ask any additional questions or voice any concerns. All questions were answered to the patient's satisfaction. Procedure in detail: Patient was brought to the operating room prior to which a time-out was called for patient identification site verification. Right foot was prepped and draped in standard surgical fashion. Curvilinear incision was carried out over the dorsum of the foot and a posterior flap was then created. Using a power saw we cut across all the transmetatarsal heads. Once this was done using electrocautery we dissected out the posterior flap. We made sure adequate hemostasis was achieved wound was thoroughly irrigated out. The flap was then trimmed appropriately to match up to the dorsum of the foot. Once this curvilinear shape was formed we then filed down the bony edges. We then once again irrigated thoroughly. We reapproximated the deep layer using 2-0 Polysorb superficial layer with another layer of 2-0 Polysorb finally skin with a 3-0 nylon in a mattress fashion along with skin clips. Xeroform and a sterile dressing were applied. At the end the case sponge instrument counts were correct. Patient tolerated the procedure well. Returned to recovery with stable vitals. This note is constructed using voice recognition software. While every effort has been made to ensure accuracy, lemon picker errors may have been included. Thank you for allowing me to participate in the care of your patient. Yours sincerely, Viktor Blanca MD, FACS, R.P.V.I.
--- NOTE | 2025-06-18 15:47 | MHC.CM.PN ---
per rounds pt not ready for dc plan remains home
[2025-06-18 16:33] LABS: Glucose, Whole Blood 157 mg/dL (60-115)
[2025-06-18 20:32] LABS: Glucose, Whole Blood 279 mg/dL (60-115)
[2025-06-19] VITALS (9 sets, daily range): BP systolic 108–124; BP diastolic 52–60; PULSE 72–94; RESP 15–19; TEMP 36.1–36.6; O2SAT 94–99
[2025-06-19] MEDS: Lactated Ringers 1,000 ML 100 ML IVCONT ×3 (00:10→21:55)
[2025-06-19 06:33] LABS: Hematocrit 28.1 % (42.0-52.0); Hemoglobin 9.4 g/dl (14.0-18.0); Mean Corpuscular HGB Conc 33.5 g/dl (31.0-36.0); Mean Corpuscular Hemoglobin 27.3 pg (27.0-33.0); Mean Corpuscular Volume 81.7 fL (80.0-98.0); NRBC Abs Auto 0.000 X10*3/uL (0.0-0.012); NRBC Pct Auto 0.0 /100WBC (0.0-0.2); Platelet Count 652 X10*3/uL (160-400); Red Blood Count 3.44 X10*6/uL (4.60-5.80); White Blood Count 22.5 X10*3/uL (4.8-10.8)
[2025-06-19 06:54] LABS: Anion Gap 17 (12-20); Blood Urea Nitrogen 36 mg/dL (9-16); Calcium 9.4 mg/dL (8.4-10.2); Carbon Dioxide 21 mmol/L (22-29); Chloride 97 mmol/L (96-108); Creatinine Clr Calc Pharmacy 53.5; Estimated Glomerular Filt Rate 45; Potassium 4.9 mmol/L (3.3-5.1); Sodium 130 mmol/L (135-145)
[2025-06-19 07:40] LABS: Glucose, Whole Blood 298 mg/dL (60-115)
[2025-06-19] MEDS: oxyCODONE HCl ER 10 MG TAB.ER.12H 20 MG PO (07:54)
[2025-06-19] MEDS: Metoprolol Succinate ER 12.5 MG HALFTAB.ER.24H PO (07:55)
[2025-06-19] MEDS: Sacubitril/Valsartan 24/26 1 TAB TABLET PO (07:56)
--- NOTE | 2025-06-19 08:01 | PC.NURSE ---
Addendum entered by Marlena Ochoa RN 06/19/25 08:13: Patient educated on fall risk and concerns of falling - patient yelling at nurse stating I can get up when I want , patient refusing bed alarm. Patient educated to use call yanez. Original Note: Patient very demanding, manipulative to care. Insisting he can get 40mg oxycodone, educated patient on medications that are ordered. Patient insulting to nurse and hospital care, referring to everything being out of wack, that shouldn't be in the hospital, you should be shamed , regarding his blood sugars. Patient educated on effects of medications, surgery and infection on glucose levels and care being provided to manage blood glucose levels. When not interacting with patient, patient is sitting up with eyes closed, unlabored breathing, breathing with mouth open as if asleep.
--- NOTE | 2025-06-19 08:14 | HO.POSTANES ---
Post Anesthesia Evaluation Post Anesthesia Evaluation Date of Service: 06/19/25 Vital Signs: Vital Signs Temp Pulse Resp BP Pulse Ox O2 Del Method 06/19/25 07:33 97.8 F 89 18 121/60 99 Room Air 06/19/25 05:31 18 06/19/25 03:08 97.0 F 86 16 108/52 L 96 Room Air 06/19/25 01:32 18 06/18/25 22:00 18 Anesthesia: Monitored Mental Status: Awake Pain Control: Satisfactory Nausea/Vomiting: None Hydration: Adequate Anesthesia-Related Issues: No Anes. Related Issues
--- NOTE | 2025-06-19 10:56 | HO.VASCPN ---
Subjective Subjective Date of Service: 06/19/25 Patient reports: still having pain Interval history: Patient is postop day 1 status post transmetatarsal amputation. Some swelling in the right lower extremity. Biggest complaint is pain. He has intractable pain which has been difficult to control. He appears to be doing relatively well otherwise. Tolerating a diet. Now for routine postop follow-up. Physical Exam Vital Signs: Vital Signs: Last Vital Signs Temp 97.8 F 06/19/25 07:33 Pulse 89 06/19/25 07:33 Resp 16 06/19/25 10:28 BP 121/60 06/19/25 07:33 Pulse Ox 99 06/19/25 07:33 O2 Del Method Room Air 06/19/25 07:33 O2 Flow Rate 2 06/18/25 13:18 BMI result Body Mass Index 31.2 Const: General: cooperative, healthy appearing and comfortable Orientation/consciousness: oriented to person, oriented to place and oriented to time HEENT: Head: Yes normal to inspection Neck: Neck: Yes normal visual inspection Carotids: no bruits Chest: Chest palpation & inspection: normal inspection of the chest Resp: Effort & Inspection: normal respiratory effort and able to speak in complete sentences Auscultation: clear to auscultation bilaterally, no crackles, no rales, no rhonchi and no wheezes Cardio: Rate: regular rate Rhythm: regular rhythm Heart sounds: S1 normal heart sound present and S2 normal heart sound present Bruits: no carotid bruits Peripheral pulses: Peripheral pulses 2+ throughout GI: Inspection: Yes normal to inspection Skin: Other: Right lower extremity dressing intact. Outer Dion wrap removed. Some mild sanguinous drainage on the dressing. Wounds: no wounds Hair: normal Neuro: General: oriented to person, oriented to place and oriented to time Cranial nerves: Yes CN's II-XII intact bilaterally and Yes Normal hearing present Cognition (Neuro): normal cognition Motor exam (neuro): 5/5 motor strength present throughout Extrem: Other: venous exam: No significant superficial varicosities or spider telangiectasias, minimal edema General: No clubbing, No cyanosis and No edema Psych: Appearance: grossly normal Mental Status: mental status grossly normal Speech and movement: Normal speech and movement present Progress Note: A&P Assessment and plan (1) Diabetic osteomyelitis: Status: Acute Assessment and Plan: In short patient has undergone right transmetatarsal amputation. I think his biggest issue is pain control right now. He has gotten Dilaudid which seems to be helping him a little bit better. He does have increased swelling of the right lower extremity which is concerning. I have ordered an ultrasound to rule out DVT. He is on DVT prophylaxis. Will plan for dressing change for tomorrow. Thank you for allowing us to assist in his care. If there are any questions or concerns please do not hesitate to contact us. Time Spent With Patient Time: Total time managing care of this patient today ____ minutes. Procedures Date of Service Date of Service: 06/19/25 Quality Stroke Does the patient have a stroke diagnosis?: No VTE Prior VTE?: No VTE Risk Level:: Medical - moderate - high VTE Device Contraindication: Treatment Not Indicated VTE Drug Contraindication: N/A - Med Ordered
[2025-06-19 11:31] LABS: Glucose, Whole Blood 229 mg/dL (60-115)
[2025-06-19] MEDS: Milk of Magnesia 30 ML ORAL.SUSP PO (12:41)
--- NOTE | 2025-06-19 15:24 | HO.PM.IMPN ---
Subjective Subjective Date of Service: 06/19/25 Interval History: Patient seen and examined at bedside this morning, patient had TMA done, WBC 22.5, creatinine 1.5, increasing. Patient mentions that his pain is not bearable at this time, wishes to be given medications for this. Review of Systems Review of Systems: Yes all other systems are reviewed and are negative Physical Exam Exam: Exam: General: AxOx3, in pain Head: AT/NC ENT: Moist mucous membranes Neck: supple CVS; RRR, S1 S2 normal Lungs: Clear bilateral breath sounds, no wheezes or crackles Abd: Soft non tender, non distended Ext: No calf tenderness MSK: moving all 4 limbs Skin: right TMA with dressing in place, edema Psych: Cooperative with exam Neurology: no focal deficit Vital Signs: Vital Signs: Last Vital Signs Temp 97.2 F 06/19/25 15:20 Pulse 72 06/19/25 15:20 Resp 19 06/19/25 15:20 BP 115/53 L 06/19/25 15:20 Pulse Ox 95 06/19/25 15:20 O2 Del Method Room Air 06/19/25 15:20 O2 Flow Rate 2 06/18/25 13:18 BMI result Body Mass Index 31.2 Objective Data Active Medications Acetaminophen (Acetaminophen 325 Mg Tablet) 650 mg PO Q6H PRN PRN Reason: Pain, Mild 1-3,fever,headache Atorvastatin Calcium (Atorvastatin Calcium 80 Mg Tablet) 80 mg PO DAILY [facility] Last Admin: 06/19/25 07:54 Dose: 80 mg Documented By: COLBURLazaro Calamine (Calamine/Zinc Oxide Lotion 177 Ml Bottle) 1 appl TOPICAL Q3H PRN; Protocol PRN Reason: Itching Calcium Carbonate (Calcium Carbonate 750 Mg Tab.Chew) 750 mg PO Q4H PRN PRN Reason: Heartburn Dextrose (Dextrose 50 % 25 Gm/50 Ml Syringe) 25 gm IVPUSH Q15M PRN; Protocol PRN Reason: per Hypoglycemia Standing Ord. Last Admin: 06/18/25 07:16 Dose: 25 gm Documented By: DOBROGermania Duloxetine HCl (Duloxetine Hcl 30 Mg Capsule.Dr) 30 mg PO BEDTIME [facility] Glucose (Glucose Gel 15 Gm Gel..Gram.) 15 gm PO Q15M PRN; Protocol PRN Reason: per Hypoglycemia Standing Ord. Heparin Sodium (Porcine) (Heparin Sodium,Porcine 5,000 Unit/Ml Vial) 5,000 unit SUBCUT Q12H [facility] Last Admin: 06/19/25 07:54 Dose: 5,000 unit Documented By: MARICHUY Hydromorphone HCl (Hydromorphone Hcl 1 Mg/Ml Syringe) 4 mg IVPUSH Q3H PRN; Protocol PRN Reason: Pain, Severe (Pain Scale 7-10) Last Admin: 06/19/25 10:28 Dose: 4 mg Documented By: MARICHUY Lactated Ringer's (Lr) 1,000 mls @ 100 mls/hr IVCONT .Q10H [facility] Last Admin: 06/19/25 12:41 Dose: 100 mls/hr Documented By: MARICHUY Comments: upon starting shift - patient did not have IV fluids running per night nurse for patient refusal. Patient spoke to MD and will now be compliant with IV fluids. Insulin Human Lispro (Insulin Lispro 100 Unit/Ml 3 Ml Vial) 0 unit SUBCUT QIDACHS [facility]; Protocol Last Admin: 06/19/25 12:28 Dose: 4 unit Documented By: MARICHUY Magnesium Hydroxide (Milk Of Magnesia 30 Ml Oral.Susp) 30 ml PO DAILY PRN PRN Reason: Constipation Last Admin: 06/19/25 12:41 Dose: 30 ml Documented By: MARICHUY Melatonin (Melatonin 3 Mg Tablet) 6 mg PO BEDTIME PRN PRN Reason: Insomnia Meropenem (Meropenem 500 Mg Vial) 500 mg IVPUSH Q8H [facility] Last Admin: 06/19/25 12:29 Dose: 500 mg Documented By: MARICHUY Metoprolol Succinate (Metoprolol Succinate Er 12.5 Mg Halftab.Er.24h) 12.5 mg PO DAILY [facility]; Protocol Last Admin: 06/19/25 07:55 Dose: 12.5 mg Documented By: MARICHUY Naloxone HCl (Naloxone Hcl 0.4 Mg/Ml Vial) 0.1 mg IVPUSH Q5M PRN PRN Reason: Respiratory Rate < 10 Naloxone HCl (Naloxone Hcl 0.4 Mg/Ml Vial) 0.04 mg IVPUSH Q5M PRN PRN Reason: Excessive sedation or RR < 8 Oxycodone HCl (Oxycodone Hcl Immed Release 5 Mg Tablet) 5 mg PO Q3H PRN PRN Reason: Pain, Moderate(Pain Scale 4-6) Last Admin: 06/17/25 15:17 Dose: 5 mg Documented By: CHLOE Oxycodone HCl (Oxycodone Hcl Er 10 Mg Tab.Er.12h) 20 mg PO BID [facility] Last Admin: 06/19/25 07:54 Dose: 20 mg Documented By: MARICHUY Sacubitril/Valsartan (Sacubitril/Valsartan 1 Tab Tablet) 1 tab PO BID [facility]; Protocol On Hold: 06/19/25 07:42 Last Admin: 06/19/25 07:56 Dose: 1 tab Documented By: MARICHUY Sodium Chloride (0.9 % Sodium Chloride Flush 3 Ml Syringe) 3 ml IVFLUSH QSHIFT [facility] Last Admin: 06/19/25 10:32 Dose: Not Given Documented By: MARICHUY Non-Admin Reason: PICC line Trazodone HCl (Trazodone Hcl 100 Mg Tablet) 100 mg PO BEDTIME [facility] Last Admin: 06/18/25 22:05 Dose: Not Given Documented By: MAGAN Non-Admin Reason: Patient Refused Labs 06/19/25 05:23 06/19/25 05:23 Labs: Laboratory Results - last 24 hr 06/18/25 06/18/25 06/19/25 16:30 20:28 05:23 MCV 81.7 MCH 27.3 MCHC 33.5 RDW 14.6 Plt Count 652 H D MPV 10.6 Absolute Nucleated RBC 0.000 Nucleated RBC % (auto) 0.0 Anion Gap 17 Estim Creat Clear Calc 53.5 Estimated GFR 45 POC Glucose 157 H 279 H Random Glucose 239 H Calcium 9.4 D 06/19/25 06/19/25 07:33 11:18 MCV MCH MCHC RDW Plt Count MPV Absolute Nucleated RBC Nucleated RBC % (auto) Anion Gap Estim Creat Clear Calc Estimated GFR POC Glucose 298 H 229 H Random Glucose Calcium Assessment and Plan (1) Osteomyelitis: Status: Acute Plan Assessment; 64-year-old male who presented to hospital after being seen earlier today by vascular surgery, with worsening right foot infection with purulent drainage, in the ED x-ray showed progression of osteomyelitis, plans on taken to the OR on 06/18 at 11:00 for transmetatarsal amputation. switched from IV zosyn and vanc to meropenem given wound cultures. With difficult to control pain, placed on fentanyl patch Sepsis secondary to Right foot osteomyelitis Right foot osteomyelitis s/p right TMA in 06/18 Leukocytosis and thrombocytosis, likely secondary to above, PAD, chronic -labs and imaging reviewed with right foot x-ray showing destructive changes in the head and neck of the 2nd metatarsal consistent with progression of osteomyelitis -blood culture ordered and pending. Wound culture growing E coli and Morganella -s/p Sepsis bolus and IV fluids -Continue meropenem given Morganella species. -multimodal pain management, oxycontin 20mg BID and dilaudid 4mg. will initiate fentanyl patch as well as duloxetine given DENIS PRN narcan if needed -vascular surgery consulted and following -continue with daily labs T2 dm, chronic -Continue insulin sliding scale, basal insulin d/c at will leave ISS. DENIS likely multifactorial in origin -continue with IVf, will hold entresto at this time. continue to monitor labs Anemia of chronic disease -continue to monitor and transfuse for hemoglobin less than 7 FEN: LR, replete as needed, diabetic GI PPX: Protonix 40 mg q.d. DVT PPX: Heparin 5000 units b.i.d. Code status: Full code Disposition: All questions and concerns with the patient were answered to satisfaction. All pertinent clinical documents, images and labs were reviewed. Total time managing care of this patient today: 55 minutes. Quality Stroke Does the patient have a stroke diagnosis?: No VTE Prior VTE?: No VTE Risk Level:: Medical - moderate - high VTE Device Contraindication: Treatment Not Indicated VTE Drug Contraindication: N/A - Med Ordered
--- NOTE | 2025-06-19 15:56 | PC.NURSE ---
Patient receiving ultrasound - bench repair technician came out stating patient is having pain and is swearing about this nurse. Prior to this, less than an hour ago, this nurse woke patient up from a sound sleep to inquire about his urination and to get a urine sample at that time patient did not mention being in pain. While administering pain medications, discussed this with patient regarding pain medications ordered and frequency. After IV PRN medications administered, patient closed eyes with unlabored breathing.
[2025-06-19 16:09] LABS: Glucose, Whole Blood 214 mg/dL (60-115)
[2025-06-19 19:53] LABS: Appearance Urine Clear; Glucose Urine UA >=1000 mg/dL (Negative); PH 5.0 (5.0-9.0); Specific Gravity - Urine 1.020 (1.005-1.025); UMIC TRIGGER UACC YES
[2025-06-19 20:36] LABS: Glucose, Whole Blood 188 mg/dL (60-115)
[2025-06-20 00:04] VITALS: BP 129/75; PULSE 95; RESP 18; TEMP 36.6; O2SAT 96
--- NOTE | 2025-06-20 00:31 | PC.NURSE ---
Pt refusing all other medications besides Dilaudid. Patient states nothing else helps his pain. Pt becoming increasingly more upset and raises voice stating I dont want anything other than my dilaudid and you better bring it here right now to this RN.
[2025-06-20 03:44] VITALS: BP 107/56; PULSE 100; RESP 18; TEMP 36.7; O2SAT 95
[2025-06-20] MEDS: oxyCODONE HCl ER 10 MG TAB.ER.12H 20 MG PO (06:10)
[2025-06-20 07:16] VITALS: BP 106/56; PULSE 108; RESP 16; TEMP 36; O2SAT 95
[2025-06-20 07:46] LABS: Glucose, Whole Blood 247 mg/dL (60-115)
[2025-06-20] MEDS: Metoprolol Succinate ER 12.5 MG HALFTAB.ER.24H PO (07:57)
--- NOTE | 2025-06-20 10:20 | P.PNVS_ITS ---
Subjective Subjective Date of Service: 06/20/25 Patient reports: no new complaints and still having pain Interval history: Patient seen and examined. Postop day 2 status post transmetatarsal amputation. Has sincere complains about pain. Although when I presented to his room this morning he was sitting up a sleep yet he had complaints of pain. Overall reports that his swelling is better. Swelling has decreased. Ultrasound was negative for DVT. Physical Exam 2 Vital Signs: Vital Signs: Last Vital Signs Temp 96.8 F 06/20/25 07:16 Pulse 108 H 06/20/25 07:16 Resp 16 06/20/25 07:16 BP 106/56 L 06/20/25 07:16 Pulse Ox 95 06/20/25 07:16 O2 Del Method Room Air 06/20/25 07:16 O2 Flow Rate 2 06/18/25 13:18 BMI result Body Mass Index 31.2 Const: General: cooperative, healthy appearing and no acute distress O rientation/consciousness: oriented to person, oriented to place and oriented to time HEENT: Head: Yes normal to inspection Neck: Carotids: no bruits Chest: Chest palpation & inspection: normal inspection of the chest Resp: Effort & Inspection: normal respiratory effort and able to speak in complete sentences Auscultation: clear to auscultation bilaterally Cardio: Rate: regular rate Heart sounds: S1 normal heart sound present and S2 normal heart sound present GI: Inspection: Yes normal to inspection Skin: Other: General skin exam: no rashes or lesions noted Wounds: amputation site Neuro: General: oriented to person, oriented to place, oriented to time and CN's II-XI intact bilaterally Extrem: General: Yes normal to inspection, Yes full ROM and Yes no clubbing, cyanosis or edema Psych: Appearance: grossly normal and well kempt Speech and movement: N ormal speech and movement present Affect: normal affect Progress Note: A&P Assessment and plan (1) PAD (peripheral artery disease): Status: Acute Assessment and Plan: In short appears to be doing well status post transmetatarsal amputation. Clear if this is truly pain issue from amp or other issues. Overall appears to be healing well. Stable from my perspective for discharge. May heel touch on that right foot. Would discharge on 10 days of p.o. Keflex. No IV antibiotics required. Thank you for allowing us to assist in his care. Time Spent With Patient Time: Total time managing care of this patient today ____ minutes. Procedures Date of Service Date of Service: 06/20/25 Quality Stroke Does the patient have a stroke diagnosis?: No VTE Prior VTE?: No VTE Risk Level:: Medical - moderate - high VTE Device Contraindication: Treatment Not Indicated VTE Drug Contraindication: N/A - Med Ordered
--- NOTE | 2025-06-20 11:06 | HO.PM.IMPN ---
Subjective Subjective Date of Service: 06/20/25 Interval History: s/p Right TMA, wound looks clean pain is controlled Review of Systems Review of Systems: Yes all other systems are reviewed and are negative Physical Exam Exam: Exam: General: AxOx3, in pain Head: AT/NC ENT: Moist mucous membranes Neck: supple CVS; RRR, S1 S2 normal Lungs: Clear bilateral breath sounds, no wheezes or crackles Abd: Soft non tender, non distended Ext: No calf tenderness MSK: moving all 4 limbs Skin: right TMA with dressing in place, edema Psych: Cooperative with exam Neurology: no focal deficit Vital Signs: Vital Signs: Last Vital Signs Temp 96.8 F 06/20/25 07:16 Pulse 108 H 06/20/25 07:16 Resp 16 06/20/25 07:16 BP 106/56 L 06/20/25 07:16 Pulse Ox 95 06/20/25 07:16 O2 Del Method Room Air 06/20/25 07:16 O2 Flow Rate 2 06/18/25 13:18 BMI result Body Mass Index 31.2 Const: Other: General: AO X 3, no acute distress Resp: CTA bilateral CVS: S1,S2,RRR GI: +BS, NT, no distention Skin: No rash ext:swelling in right leg, Neuro: motor grossly intact Psych: appropriate affect Objective Data Active Medications Acetaminophen (Acetaminophen 325 Mg Tablet) 650 mg PO Q6H PRN PRN Reason: Pain, Mild 1-3,fever,headache Atorvastatin Calcium (Atorvastatin Calcium 80 Mg Tablet) 80 mg PO DAILY [facility] Last Admin: 06/20/25 06:11 Dose: 80 mg Documented By: SAMIR Calamine (Calamine/Zinc Oxide Lotion 177 Ml Bottle) 1 appl TOPICAL Q3H PRN; Protocol PRN Reason: Itching Calcium Carbonate (Calcium Carbonate 750 Mg Tab.Chew) 750 mg PO Q4H PRN PRN Reason: Heartburn Last Admin: 06/20/25 00:03 Dose: 750 mg Documented By: LEFEBTYREE Dextrose (Dextrose 50 % 25 Gm/50 Ml Syringe) 25 gm IVPUSH Q15M PRN; Protocol PRN Reason: per Hypoglycemia Standing Ord. Last Admin: 06/18/25 07:16 Dose: 25 gm Documented By: DOBROB Duloxetine HCl (Duloxetine Hcl 30 Mg Capsule.Dr) 30 mg PO BEDTIME [facility] Last Admin: 06/19/25 20:29 Dose: Not Given Documented By: ADILIA Non-Admin Reason: Patient Refused Glucose (Glucose Gel 15 Gm Gel..Gram.) 15 gm PO Q15M PRN; Protocol PRN Reason: per Hypoglycemia Standing Ord. Heparin Sodium (Porcine) (Heparin Sodium,Porcine 5,000 Unit/Ml Vial) 5,000 unit SUBCUT Q12H [facility] Last Admin: 06/20/25 07:58 Dose: 5,000 unit Documented By: JONATHAN Hydromorphone HCl (Hydromorphone Hcl 1 Mg/Ml Syringe) 4 mg IVPUSH Q3H PRN; Protocol PRN Reason: Pain, Severe (Pain Scale 7-10) Last Admin: 06/20/25 09:32 Dose: 4 mg Documented By: JONATHAN Insulin Human Lispro (Insulin Lispro 100 Unit/Ml 3 Ml Vial) 0 unit SUBCUT QIDACHS [facility]; Protocol Last Admin: 06/20/25 07:58 Dose: 4 unit Documented By: JONATHAN Magnesium Hydroxide (Milk Of Magnesia 30 Ml Oral.Susp) 30 ml PO DAILY PRN PRN Reason: Constipation Last Admin: 06/19/25 12:41 Dose: 30 ml Documented By: MARICHUY Melatonin (Melatonin 3 Mg Tablet) 6 mg PO BEDTIME PRN PRN Reason: Insomnia Meropenem (Meropenem 500 Mg Vial) 500 mg IVPUSH Q8H [facility] Last Admin: 06/20/25 04:41 Dose: 500 mg Documented By: ADILIA Metoprolol Succinate (Metoprolol Succinate Er 12.5 Mg Halftab.Er.24h) 12.5 mg PO DAILY [facility]; Protocol Last Admin: 06/20/25 07:57 Dose: 12.5 mg Documented By: JONATHAN Naloxone HCl (Naloxone Hcl 0.4 Mg/Ml Vial) 0.1 mg IVPUSH Q5M PRN PRN Reason: Respiratory Rate < 10 Naloxone HCl (Naloxone Hcl 0.4 Mg/Ml Vial) 0.04 mg IVPUSH Q5M PRN PRN Reason: Excessive sedation or RR < 8 Oxycodone HCl (Oxycodone Hcl Immed Release 5 Mg Tablet) 5 mg PO Q3H PRN PRN Reason: Pain, Moderate(Pain Scale 4-6) Last Admin: 06/17/25 15:17 Dose: 5 mg Documented By: CHLOE Oxycodone HCl (Oxycodone Hcl Er 10 Mg Tab.Er.12h) 20 mg PO BID [facility] Last Admin: 06/20/25 06:10 Dose: 20 mg Documented By: SAMIR Sacubitril/Valsartan (Sacubitril/Valsartan 1 Tab Tablet) 1 tab PO BID [facility]; Protocol On Hold: 06/19/25 07:42 Last Admin: 06/19/25 07:56 Dose: 1 tab Documented By: MARICHUY Sodium Chloride (0.9 % Sodium Chloride Flush 3 Ml Syringe) [facility] Last Admin: 06/20/25 09:36 Dose: Not Given Documented By: JONATHAN Non-Admin Reason: Previously Administered Trazodone HCl (Trazodone Hcl 100 Mg Tablet) 100 mg PO BEDTIME [facility] Last Admin: 06/19/25 20:31 Dose: Not Given Documented By: ADILIA Non-Admin Reason: Patient Refused Labs 06/19/25 05:23 06/19/25 05:23 Labs: Laboratory Results - last 24 hr 06/19/25 06/19/25 06/19/25 11:18 16:05 19:40 POC Glucose 229 H 214 H Urine Color Yellow Urine Appearance Clear Urine pH 5.0 Ur Specific [place] 1.020 Urine Protein Negative Urine Glucose (UA) >=1000 H Urine Ketones Trace Urine Blood Negative Urine Nitrite Negative Ur Leukocyte Esterase Negative Urine RBC 0-2 Urine WBC 0-5 Ur Squamous Epith Cells 0-2 Urine Bacteria None Seen Hyaline Casts 3-5 Ur Random Sodium 22.0 Urine Creatinine 99.67 06/19/25 06/20/25 20:31 07:16 POC Glucose 188 H 247 H Urine Color Urine Appearance Urine pH Ur Specific [place] Urine Protein Urine Glucose (UA) Urine Ketones Urine Blood Urine Nitrite Ur Leukocyte Esterase Urine RBC Urine WBC Ur Squamous Epith Cells Urine Bacteria Hyaline Casts Ur Random Sodium Urine Creatinine Microbiology Microbiology Results: Microbiology 06/14/25 17:44 Blood Culture - Final Blood - Venous No growth after 5 days. 06/14/25 15:57 Blood Culture - Final Blood - Venous No growth after 5 days. Assessment and Plan (1) Osteomyelitis: Status: Acute Plan Assessment; 64-year-old male who presented to hospital after being seen earlier today by vascular surgery, with worsening right foot infection with purulent drainage, in the ED x-ray showed progression of osteomyelitis, plans on taken to the OR on 06/18 at 11:00 for transmetatarsal amputation. switched from IV zosyn and vanc to meropenem given wound cultures. With difficult to control pain, placed on fentanyl patch Sepsis secondary to Right foot osteomyelitis Right foot osteomyelitis s/p right TMA in 06/18 wound culture positive for e coli and morganella--sens to Cipro Add Levaquin PO T2 dm, chronic -Continue insulin sliding scale, basal insulin d/c at will leave ISS. DENIS likely multifactorial in origin, pre renal, sepsis, Creatine has been trended up has been on IVF, repeat labs today Anemia of chronic disease -continue to monitor and transfuse for hemoglobin less than 7 FEN: LR, replete as needed, diabetic GI PPX: Protonix 40 mg q.d. DVT PPX: Heparin 5000 units b.i.d. Code status: Full code PT eval, if goes home will need VNA Disposition: All questions and concerns with the patient were answered to satisfaction. All pertinent clinical documents, images and labs were reviewed. Total time managing care of this patient today: 55 minutes. Quality Stroke Does the patient have a stroke diagnosis?: No VTE Prior VTE?: No VTE Risk Level:: Medical - moderate - high VTE Device Contraindication: Treatment Not Indicated VTE Drug Contraindication: N/A - Med Ordered
[2025-06-20 11:35] LABS: Glucose, Whole Blood 206 mg/dL (60-115)
[2025-06-20 11:38] LABS: Hematocrit 26.6 % (42.0-52.0); Hemoglobin 8.9 g/dl (14.0-18.0); Mean Corpuscular HGB Conc 33.5 g/dl (31.0-36.0); Mean Corpuscular Hemoglobin 27.1 pg (27.0-33.0); Mean Corpuscular Volume 80.9 fL (80.0-98.0); NRBC Abs Auto 0.000 X10*3/uL (0.0-0.012); NRBC Pct Auto 0.0 /100WBC (0.0-0.2); Platelet Count 609 X10*3/uL (160-400); Red Blood Count 3.29 X10*6/uL (4.60-5.80); White Blood Count 15.3 X10*3/uL (4.8-10.8)
[2025-06-20] MEDS: Lactated Ringers 1,000 ML 100 ML IVCONT (11:43)
[2025-06-20 11:51] LABS: Anion Gap 10 (12-20); Blood Urea Nitrogen 40 mg/dL (9-16); Calcium 9.3 mg/dL (8.4-10.2); Carbon Dioxide 25 mmol/L (22-29); Chloride 98 mmol/L (96-108); Creatinine Clr Calc Pharmacy 60.1; Estimated Glomerular Filt Rate 52; Potassium 5.2 mmol/L (3.3-5.1); Sodium 128 mmol/L (135-145)
--- NOTE | 2025-06-20 13:40 | MHC.CM.PN ---
per rounds dc plan is home pt not ready at this time
[2025-06-20 15:08] VITALS: BP 106/56; PULSE 98; RESP 18; TEMP 36.5; O2SAT 93
[2025-06-20 16:18] LABS: Glucose, Whole Blood 120 mg/dL (60-115)
[2025-06-20 19:26] VITALS: BP 115/57; PULSE 100; RESP 19; TEMP 36.4; O2SAT 92
[2025-06-20 20:16] LABS: Glucose, Whole Blood 185 mg/dL (60-115)
[2025-06-21 03:19] VITALS: BP 110/57; PULSE 112; RESP 20; TEMP 36; O2SAT 93
--- NOTE | 2025-06-21 06:57 | PC.NURSE ---
refusing alarms for fall risk.
[2025-06-21 07:18] VITALS: BP 116/57; PULSE 109; RESP 18; TEMP 36.7; O2SAT 94
[2025-06-21 07:37] LABS: Glucose, Whole Blood 267 mg/dL (60-115)
[2025-06-21] MEDS: Metoprolol Succinate ER 12.5 MG HALFTAB.ER.24H PO (07:45)
[2025-06-21] MEDS: oxyCODONE HCl ER 10 MG TAB.ER.12H 20 MG PO (07:46)
[2025-06-21] MEDS: 0.9 % Sodium Chloride Flush 3 ML SYRINGE IVFLUSH ×3 (07:46→23:01)
--- NOTE | 2025-06-21 09:30 | PC.NURSE ---
Pt wound care done, small bloody drainage, no odor, no s/s infection. Tolerated wound care well, able to make needs known.
--- NOTE | 2025-06-21 11:22 | HO.PM.IMPN ---
Subjective Subjective Date of Service: 06/21/25 Interval History: s/p Right TMA, wound looks clean pain is controlled, generalized swollen Review of Systems Review of Systems: Yes all other systems are reviewed and are negative Physical Exam Exam: Exam: General: AxOx3, in pain Head: AT/NC ENT: Moist mucous membranes Neck: supple CVS; RRR, S1 S2 normal Lungs: Clear bilateral breath sounds, no wheezes or crackles Abd: Soft non tender, non distended Ext: No calf tenderness MSK: moving all 4 limbs Skin: right TMA with dressing in place, edema Psych: Cooperative with exam Neurology: no focal deficit Vital Signs: Vital Signs: Last Vital Signs Temp 98.1 F 06/21/25 07:18 Pulse 109 H 06/21/25 07:18 Resp 18 06/21/25 07:18 BP 116/57 L 06/21/25 07:18 Pulse Ox 94 06/21/25 07:18 O2 Del Method Room Air 06/21/25 07:18 O2 Flow Rate 2 06/18/25 13:18 BMI result Body Mass Index 31.2 Const: Other: General: AO X 3, no acute distress Resp: CTA bilateral CVS: S1,S2,RRR GI: +BS, NT, no distention Skin: wound looks clean 06/21 ext:swelling in right leg, Neuro: motor grossly intact Psych: appropriate affect Objective Data Active Medications Acetaminophen (Acetaminophen 325 Mg Tablet) 650 mg PO Q6H PRN PRN Reason: Pain, Mild 1-3,fever,headache Atorvastatin Calcium (Atorvastatin Calcium 80 Mg Tablet) 80 mg PO DAILY [facility] Last Admin: 06/21/25 07:45 Dose: 80 mg Documented By: KHADRA Calamine (Calamine/Zinc Oxide Lotion 177 Ml Bottle) 1 appl TOPICAL Q3H PRN; Protocol PRN Reason: Itching Calcium Carbonate (Calcium Carbonate 750 Mg Tab.Chew) 750 mg PO Q4H PRN PRN Reason: Heartburn Last Admin: 06/20/25 00:03 Dose: 750 mg Documented By: ADILIA Dextrose (Dextrose 50 % 25 Gm/50 Ml Syringe) 25 gm IVPUSH Q15M PRN; Protocol PRN Reason: per Hypoglycemia Standing Ord. Last Admin: 06/18/25 07:16 Dose: 25 gm Documented By: DOBROB Duloxetine HCl (Duloxetine Hcl 30 Mg Capsule.) 30 mg PO BEDTIME [facility] Last Admin: 06/20/25 21:12 Dose: Not Given Documented By: TIGRE Non-Admin Reason: Patient Refused Glucose (Glucose Gel 15 Gm Gel..Gram.) 15 gm PO Q15M PRN; Protocol PRN Reason: per Hypoglycemia Standing Ord. Heparin Sodium (Porcine) (Heparin Sodium,Porcine 5,000 Unit/Ml Vial) 5,000 unit SUBCUT Q12H [facility] Last Admin: 06/21/25 07:24 Dose: 5,000 unit Documented By: KHADRA Hydromorphone HCl (Hydromorphone Hcl 1 Mg/Ml Syringe) 4 mg IVPUSH Q3H PRN; Protocol PRN Reason: Pain, Severe (Pain Scale 7-10) Last Admin: 06/20/25 19:11 Dose: 4 mg Documented By: BRENDA Lactated Ringer's (Lr) 1,000 mls @ 100 mls/hr IVCONT .Q10H [facility] Last Admin: 06/21/25 07:10 Dose: Not Given Documented By: KHADRA Non-Admin Reason: Patient Refused Insulin Human Lispro (Insulin Lispro 100 Unit/Ml 3 Ml Vial) 0 unit SUBCUT QIDACHS [facility]; Protocol Last Admin: 06/21/25 07:24 Dose: 4 unit Documented By: KHADRA Levofloxacin (Levofloxacin 750 Mg Tablet) 750 mg PO Q24H [facility] Last Admin: 06/20/25 11:41 Dose: 750 mg Documented By: JONATHAN Magnesium Hydroxide (Milk Of Magnesia 30 Ml Oral.Susp) 30 ml PO DAILY PRN PRN Reason: Constipation Last Admin: 06/19/25 12:41 Dose: 30 ml Documented By: COLBURK Melatonin (Melatonin 3 Mg Tablet) 6 mg PO BEDTIME PRN PRN Reason: Insomnia Meropenem (Meropenem 1 Gm Vial) 1 gm IVPUSH Q8H [facility] Metoprolol Succinate (Metoprolol Succinate Er 12.5 Mg Halftab.Er.24h) 12.5 mg PO DAILY [facility]; Protocol Last Admin: 06/21/25 07:45 Dose: 12.5 mg Documented By: KHADRA Naloxone HCl (Naloxone Hcl 0.4 Mg/Ml Vial) 0.1 mg IVPUSH Q5M PRN PRN Reason: Respiratory Rate < 10 Naloxone HCl (Naloxone Hcl 0.4 Mg/Ml Vial) 0.04 mg IVPUSH Q5M PRN PRN Reason: Excessive sedation or RR < 8 Omeprazole (Omeprazole 40 Mg Capsule.Dr) 40 mg PO DAILY@0630 [facility] Last Admin: 06/21/25 06:07 Dose: 40 mg Documented By: CHANTALE Oxycodone HCl (Oxycodone Hcl Er 10 Mg Tab.Er.12h) 20 mg PO BID [facility] Last Admin: 06/21/25 07:46 Dose: 20 mg Documented By: KHADRA Sacubitril/Valsartan (Sacubitril/Valsartan 1 Tab Tablet) 1 tab PO BID [facility]; Protocol On Hold: 06/19/25 07:42 Last Admin: 06/19/25 07:56 Dose: 1 tab Documented By: MARICHUY Sodium Chloride (0.9 % Sodium Chloride Flush 3 Ml Syringe) 3 ml IVFLUSH QSHIFT [facility] Last Admin: 06/21/25 07:46 Dose: 3 ml Documented By: KHADRA Trazodone HCl (Trazodone Hcl 100 Mg Tablet) 100 mg PO BEDTIME [facility] Last Admin: 06/20/25 22:05 Dose: Not Given Documented By: CHANTALE Non-Admin Reason: Patient Refused Labs 06/20/25 11:27 06/20/25 11:27 Labs: Laboratory Results - last 24 hr 06/20/25 06/20/25 06/20/25 11:19 11:27 16:15 MCV 80.9 MCH 27.1 MCHC 33.5 RDW 14.3 Plt Count 609 H MPV 9.9 Absolute Nucleated RBC 0.000 Nucleated RBC % (auto) 0.0 Anion Gap 10 L Estim Creat Clear Calc 60.1 Estimated GFR 52 POC Glucose 206 H 120 H Random Glucose 215 H Calcium 9.3 06/20/25 06/21/25 20:11 07:09 MCV MCH MCHC RDW Plt Count MPV Absolute Nucleated RBC Nucleated RBC % (auto) Anion Gap Estim Creat Clear Calc Estimated GFR POC Glucose 185 H 267 H Random Glucose Calcium Microbiology Microbiology Results: Microbiology 06/14/25 17:44 Blood Culture - Final Blood - Venous No growth after 5 days. 06/14/25 15:57 Blood Culture - Final Blood - Venous No growth after 5 days. Assessment and Plan (1) Osteomyelitis: Status: Acute Plan Assessment; 64-year-old male who presented to hospital after being seen earlier today by vascular surgery, with worsening right foot infection with purulent drainage, in the ED x-ray showed progression of osteomyelitis, plans on taken to the OR on 06/18 at 11:00 for transmetatarsal amputation. switched from IV zosyn and vanc to meropenem given wound cultures. With difficult to control pain, placed on fentanyl patch Sepsis secondary to Right foot osteomyelitis Right foot osteomyelitis s/p right TMA in 06/18 wound culture positive for e coli and morganella--sens to Cipro PO Levaquin x 7 days, started 06/20 Dressing change per surgery or wound care T2 dm with hyperglycemia -Continue insulin sliding scale, add Lantus 10 DENIS likely multifactorial in origin, pre renal, sepsis, Creatine has been trended up has been on IVF, repeat labs today Hyponatremia, acute on crhonic Hyperkalemia, mild monitor Nephro consult for DENIS, low sodium and high K Anemia of chronic disease -continue to monitor and transfuse for hemoglobin less than 7 FEN: LR, replete as needed, diabetic GI PPX: Protonix 40 mg q.d. DVT PPX: Heparin 5000 units b.i.d. Code status: Full code PT recommends STR, I concur and he is agreable Total time managing care of this patient today: 55 minutes. Quality Stroke Does the patient have a stroke diagnosis?: No VTE Prior VTE?: No VTE Risk Level:: Medical - moderate - high VTE Device Contraindication: Treatment Not Indicated VTE Drug Contraindication: N/A - Med Ordered
[2025-06-21 11:24] LABS: Glucose, Whole Blood 260 mg/dL (60-115)
[2025-06-21] MEDS: Insulin Glargine,Hum.rec.anlog 100 UNIT/ML 10 ML VIAL 10 UNIT SUBCUT (11:38)
--- NOTE | 2025-06-21 12:25 | MHC.CM.PN ---
STR BEING RECOMMENDED CM MET WITH PT WHO DID NOT PROVIDE A DEFINITIVE DECISION, BUT DID AGREE TO REFERRALS BEING MADE REFERRALS MADE BASED ON LOCATION AND INSURANCE CONTRACTS PER DISCUSSION WITH PT
--- NOTE | 2025-06-21 13:00 | P.CONNP_ITS ---
History of Present Illness Reason for Consult Consult date: 06/21/25 Reason for consult: , hyperkalemia, hyponatremia Chief Complaint Chief complaint: right foot osteo History of Present Illness Narrative: 64-year-old male with a history significant for osteomyelitis, CKD stage 3A, T2 dm, ischemic cardiomyopathy who was sent to hospital from [facility] he has been receiving ar surgery consult , for worsening right foot pain and drainage. ; wound and pain got worse after Thanksgiving, with foul odor. During this admission he had a creatinine of 1.5 on admission which gradually improved and as of the June 15 creatinine was 1.14 Subsequently creatinine increased to 1.49 on June 18 and has been gradually Decreasing. He has received vancomycin in the recent level was 16.7 on the . He has had chronic hyponatremia with recent worsening of serum sodium levels. History of hyperkalemia and the recent potassium is 5.2. Hence this consultation. He has been on Entresto. Received IV in Ringer's lactate. Review of Systems Constitutional: Denies fever(s) and Denies weight loss Cardiovascular: Denies chest pain Respiratory: Denies cough and Denies hemoptysis Gastrointestinal: Denies abdominal pain, Denies diarrhea and Denies nausea Musculoskeletal: Denies back pain Denies focal weakness PMF Past Medical History Medical History (Updated 06/21/25 @ 13:05 by Reuben Atkins MD) PAD (peripheral artery disease) Ischemic cardiomyopathy Diabetic ulcer of right foot Diabetes Osteomyelitis of second toe of right foot Back pain Smoker Insomnia Amputated toe of left foot Anemia Low testosterone Hyperlipidemia Hypertension Carotid atherosclerosis Erectile dysfunction associated with type 2 diabetes mellitus Lumbar degenerative disc disease Gall bladder disease Finding of floating rib Spine disorder Pacemaker Stroke Diabetes 1.5, managed as type 2 Surgical History Surgical History History of surgery History of surgery History of appendectomy Social History Social History Household Members: Other Household Members Other:: roomate Both parents involved: No Caregiver staying overnight: No Housing: House Are you a primary hearing care practitioner to a significant other at home: No Do you presently have visiting nurse or other home services: Yes (2x week) 75 years or older and lives alone: No Alcohol intake: current Alcohol intake frequency: does not drink Alcohol type: other Comment: refused. Patient Tobacco Use Status: Current everyday Tobacco user Tobacco use type: Cigarette Cigarette Packs Per Day: 0.75 Cigarettes Per Day: 15.0 Years Smoked: 45 e-Cigarette/Vaping Use: Never Used Second Hand Smoke Exposure: No Substance Use Type: Marijuana Special yamilex needs: No service: No Current occupational status: retired Cognitive needs: No Hearing needs: No Vision needs: No Meds Allergies Allergy/AdvReac Type Severity Reaction Status Date / Time No Known Allergies Allergy Verified 06/14/25 15:32 Active Medications: Current Medications Acetaminophen (Acetaminophen 325 Mg Tablet) 650 mg PO Q6H PRN PRN Reason: Pain, Mild 1-3,fever,headache Atorvastatin Calcium (Atorvastatin Calcium 80 Mg Tablet) 80 mg PO DAILY [facility] Last Admin: 06/21/25 07:45 Dose: 80 mg Calamine (Calamine/Zinc Oxide Lotion 177 Ml Bottle) 1 appl TOPICAL Q3H PRN; Protocol PRN Reason: Itching Calcium Carbonate (Calcium Carbonate 750 Mg Tab.Chew) 750 mg PO Q4H PRN PRN Reason: Heartburn Last Admin: 06/20/25 00:03 Dose: 750 mg Dextrose (Dextrose 50 % 25 Gm/50 Ml Syringe) 25 gm IVPUSH Q15M PRN; Protocol PRN Reason: per Hypoglycemia Standing Ord. Last Admin: 06/18/25 07:16 Dose: 25 gm Duloxetine HCl (Duloxetine Hcl 30 Mg Capsule.Dr) 30 mg PO BEDTIME [facility] Last Admin: 06/20/25 21:12 Dose: Not Given Glucose (Glucose Gel 15 Gm Gel..Gram.) 15 gm PO Q15M PRN; Protocol PRN Reason: per Hypoglycemia Standing Ord. Heparin Sodium (Porcine) (Heparin Sodium,Porcine 5,000 Unit/Ml Vial) 5,000 unit SUBCUT Q12H [facility] Last Admin: 06/21/25 07:24 Dose: 5,000 unit Hydromorphone HCl (Hydromorphone Hcl 1 Mg/Ml Syringe) 4 mg IVPUSH Q3H PRN; Protocol PRN Reason: Pain, Severe (Pain Scale 7-10) Last Admin: 06/20/25 19:11 Dose: 4 mg Lactated Ringer's (Lr) 1,000 mls @ 100 mls/hr IVCONT .Q10H [facility] Last Infusion: 06/21/25 07:10 Dose: Infused Insulin Glargine (Insulin Glargine,Hum.Rec.Anlog 100 Unit/Ml 10 Ml Vial) 10 unit SUBCUT DAILY [facility] Last Admin: 06/21/25 11:38 Dose: 10 unit Insulin Human Lispro (Insulin Lispro 100 Unit/Ml 3 Ml Vial) 0 unit SUBCUT QIDACHS [facility]; Protocol Last Admin: 06/21/25 11:37 Dose: 6 unit Levofloxacin (Levofloxacin 750 Mg Tablet) 750 mg PO Q24H [facility] Last Admin: 06/21/25 11:37 Dose: 750 mg Magnesium Hydroxide (Milk Of Magnesia 30 Ml Oral.Susp) 30 ml PO DAILY PRN PRN Reason: Constipation Last Admin: 06/19/25 12:41 Dose: 30 ml Melatonin (Melatonin 3 Mg Tablet) 6 mg PO BEDTIME PRN PRN Reason: Insomnia Meropenem (Meropenem 1 Gm Vial) 1 gm IVPUSH Q8H [facility] Last Admin: 06/21/25 12:30 Dose: 1 gm Metoprolol Succinate (Metoprolol Succinate Er 12.5 Mg Halftab.Er.24h) 12.5 mg PO DAILY [facility]; Protocol Last Admin: 06/21/25 07:45 Dose: 12.5 mg Naloxone HCl (Naloxone Hcl 0.4 Mg/Ml Vial) 0.1 mg IVPUSH Q5M PRN PRN Reason: Respiratory Rate < 10 Naloxone HCl (Naloxone Hcl 0.4 Mg/Ml Vial) 0.04 mg IVPUSH Q5M PRN PRN Reason: Excessive sedation or RR < 8 Omeprazole (Omeprazole 40 Mg Capsule.Dr) 40 mg PO DAILY@0630 [facility] Last Admin: 06/21/25 06:07 Dose: 40 mg Oxycodone HCl (Oxycodone Hcl Er 10 Mg Tab.Er.12h) 20 mg PO BID [facility] Last Admin: 06/21/25 07:46 Dose: 20 mg Sacubitril/Valsartan (Sacubitril/Valsartan 1 Tab Tablet) 1 tab PO BID [facility]; Protocol On Hold: 06/19/25 07:42 Last Admin: 06/19/25 07:56 Dose: 1 tab Sodium Chloride (0.9 % Sodium Chloride Flush 3 Ml Syringe) 3 ml IVFLUSH QSHIFT [facility] Last Admin: 06/21/25 07:46 Dose: 3 ml Trazodone HCl (Trazodone Hcl 100 Mg Tablet) 100 mg PO BEDTIME [facility] Last Admin: 06/20/25 22:05 Dose: Not Given Home Medications ?Medication ?Instructions ?Recorded ?Confirmed ?Last Taken ?Type flash glucose sensor (FreeStyle 11/24/23 06/08/25 Unk nown History Dori 2 Sensor kit) pen needle, diabetic 32 gauge x 11/24/23 06/08/25 Unk nown History 07/17 (NovoFine Plus) metformin 1,000 mg tablet 1,000 mg PO BID 03/20/2411/0306/13/25 History insulin degludec 100 unit/mL (3 15 - 20 unit subcut BE DTIME 03/07/25 06/14/25 06/13/25 History mL) subcutaneous pen (Tresiba FlexTouch U-100 insulin) metoprolol succinate 25 mg 12.5 mg PO DAILY 03/22/25 1 08/15/24 06/13/25 History tablet,extended release 24 hr glipizide 5 mg tablet, extended 5 mg PO DAILY 03/23/25 06/14/25 06/13/25 History release 24 hr clotrimazole 1 % topical cream 1 appl topical BID PRN Rash 06/04/25 06/14/25 Unknown History insulin lispro 100 unit/mL See Protocol subcut TIDAC 1 08/04/24 06/14/25 06/13/25 History subcutaneous pen (Humalog KwikPen (U-100) Insulin) trazodone 100 mg tablet 100 mg PO BEDTIME 06/04/25 1 08/15/24 06/13/25 History Physical Exam Vital Signs: Last Vital Signs Temp 98.1 F 06/21/25 07:18 Pulse 109 H 06/21/25 07:18 Resp 18 06/21/25 07:18 BP 116/57 L 06/21/25 07:18 Pulse Ox 94 06/21/25 07:18 O2 Del Method Room Air 06/21/25 07:18 O2 Flow Rate 2 06/18/25 13:18 BMI result Body Mass Index 31.2 Const General: ill appearing Neck Neck: Yes supple Resp Auscultation: clear to auscultation bilaterally Cardio Palpation: no palpable S3 Heart sounds: no rubs GI Palpation (GI): Soft to palpation Auscultation: normal bowel sounds Neuro Motor exam (neuro): no asterixis Results Lab Results 06/20/25 11:27 06/20/25 11:27 Lab results: Chemistry 06/19/25 06/20/25 05:23 11:27 Sodium 130 L 128 L Potassium 4.9 5.2 H Carbon Dioxide 21 L 25 BUN 36 H 40 H Creatinine 1.55 H 1.38 Calcium 9.4 D 9.3 Hematology 06/19/25 06/20/25 05:23 11:27 WBC 22.5 H 15.3 H Hgb 9.4 L 8.9 L Plt Count 652 H D 609 H Urinalysis 06/19/25 19:40 Urine Color Yellow Urine Appearance Clear Urine pH 5.0 Ur Specific [place] 1.020 Urine Protein Negative Urine Glucose (UA) >=1000 H Urine Ketones Trace Urine Blood Negative Urine Nitrite Negative Ur Leukocyte Esterase Negative Urine RBC 0-2 Urine WBC 0-5 Ur Squamous Epith Cells 0-2 Hyaline Casts 3-5 Urine Studies 06/19/25 19:40 Urine Creatinine 99.67 Assessment and Plan (1) CKD stage 3a, GFR 45-59 ml/min: Status: Acute (2) Hyperkalemia: Status: Acute (3) Hyponatremia: Status: Acute Plan Acute kidney injury superimposed on CKD. Underlying CKD 3 most likely due to hypertensive diabetic kidney disease. Superimposed DENIS appears to be multifactorial probably has tubular injury. Hypoperfusion is a possibility. Obstruction needs to be ruled out. Other less likely possibility would include allergic interstitial nephritis Recommendation Check renal ultrasonogram Change Ringer's lactate to normal saline. Restrict oral free water intake. Add Lokelma to correct hyperkalemia Check vancomycin level again Agree with holding Entresto for the time being No indication for dialysis. May require a short course of loop diuretics Follow intake and output. Restrict oral free water intake to 1.2 L per 24 hours Procedures Date of Service Date of Service: 06/21/25
--- NOTE | 2025-06-21 13:40 | HO.VASCPN ---
Subjective Subjective Date of Service: 06/21/25 Patient reports: no new complaints, feels better and pain is less Interval history: 64-year-old gentleman status post transmetatarsal amputation. Appears to be doing significantly better today. Pain is better controlled. In much better spirits. He does have an element of DENIS. He is now being followed by Nephrology as well. Tolerating regular diet. Routine follow-up. Physical Exam Vital Signs: Vital Signs: Last Vital Signs Temp 98.1 F 06/21/25 07:18 Pulse 109 H 06/21/25 07:18 Resp 18 06/21/25 07:18 BP 116/57 L 06/21/25 07:18 Pulse Ox 94 06/21/25 07:18 O2 Del Method Room Air 06/21/25 07:18 O2 Flow Rate 2 06/18/25 13:18 BMI result Body Mass Index 31.2 Const: General: cooperative, healthy appearing and no acute distress Orientation/consciousness: oriented to person, oriented to place and oriented to time HEENT: Head: Yes normal to inspection Neck: Carotids: no bruits Chest: Chest palpation & inspection: normal inspection of the chest Resp: Effort & Inspection: normal respiratory effort and able to speak in complete sentences Auscultation: clear to auscultation bilaterally Cardio: Rate: regular rate Heart sounds: S1 normal heart sound present and S2 normal heart sound present GI: Inspection: Yes normal to inspection Skin: Other: Right trans met amp - greater than 75% flap take. Some central area of ischemia on the incision line. Otherwise appears pretty well. General skin exam: no rashes or lesions noted Wounds: no wounds Neuro: General: oriented to person, oriented to place, oriented to time and CN's II-XI intact bilaterally Extrem: General: Yes normal to inspection, Yes full ROM and Yes no clubbing, cyanosis or edema Psych: Appearance: grossly normal and well kempt Speech and movement: Normal speech and movement present Affect: normal affect Progress Note: A&P Assessment and plan (1) PAD (peripheral artery disease): Status: Acute Assessment and Plan: Doing well status post transmetatarsal amputation. Continue p.o. antibiotics. Pain control. May require rehab for a period of time. Continue nephrology workup. We will follow with you. Thank you for allowing us to assist in his care. Time Spent With Patient Time: Total time managing care of this patient today ____ minutes. Procedures Date of Service Date of Service: 06/21/25 Quality Stroke Does the patient have a stroke diagnosis?: No VTE Prior VTE?: No VTE Risk Level:: Medical - moderate - high VTE Device Contraindication: Treatment Not Indicated VTE Drug Contraindication: N/A - Med Ordered
[2025-06-21 15:54] VITALS: BP 110/58; PULSE 75; RESP 16; TEMP 36.8; O2SAT 93
[2025-06-21 16:36] LABS: Glucose, Whole Blood 106 mg/dL (60-115)
[2025-06-21 20:00] VITALS: BP 112/68; PULSE 81; RESP 18; TEMP 36.3; O2SAT 95
[2025-06-21 20:29] LABS: Glucose, Whole Blood 120 mg/dL (60-115)
[2025-06-22 03:50] VITALS: BP 118/62; PULSE 95; RESP 18; TEMP 36.2; O2SAT 94
[2025-06-22] MEDS: oxyCODONE HCl ER 10 MG TAB.ER.12H 20 MG PO (06:22)
[2025-06-22 07:21] VITALS: BP 115/60; PULSE 88; RESP 18; TEMP 36.8; O2SAT 93
[2025-06-22] MEDS: Metoprolol Succinate ER 12.5 MG HALFTAB.ER.24H PO (07:25)
[2025-06-22] MEDS: Insulin Glargine,Hum.rec.anlog 100 UNIT/ML 10 ML VIAL 10 UNIT SUBCUT (07:26)
[2025-06-22] MEDS: 0.9 % Sodium Chloride Flush 3 ML SYRINGE IVFLUSH (07:27)
[2025-06-22 07:30] LABS: Glucose, Whole Blood 222 mg/dL (60-115)
--- NOTE | 2025-06-22 10:41 | PC.NURSE ---
PICC LINE Dressing changed today, sterile technique, pt tolerated well. no s/s infection.
[2025-06-22 11:43] LABS: Glucose, Whole Blood 84 mg/dL (60-115)
--- NOTE | 2025-06-22 11:58 | P.PNVS_ITS ---
Subjective Subjective Date of Service: 06/22/25 Patient reports: no new complaints and feels better Interval history: Patient seen and examined today. He appears to be doing significantly better. Pain appears to be better controlled. He is in much better spirits. He is postop day 4 from a transmetatarsal amputation. Physical Exam Vital Signs: Vital Signs: Last Vital Signs Temp 98.2 F 06/22/25 07:21 Pulse 88 06/22/25 07:21 Resp 18 06/22/25 07:21 BP 115/60 06/22/25 07:21 Pulse Ox 93 06/22/25 07:21 O2 Del Method Room Air 06/22/25 07:21 O2 Flow Rate 2 06/18/25 13:18 BMI result Body Mass Index 31.2 Const: General: cooperative, healthy appearing and comfortable Orientation/consciousness: oriented to person, oriented to place and oriented to time HEENT: Head: Yes normal to inspection Neck: Neck: Yes normal visual inspection Carotids: no bruits Chest: Chest palpation & inspection: normal inspection of the chest Resp: Effort & Inspection: normal respiratory effort and able to speak in c omplete sentences Auscultation: clear to auscultation bilaterally, no crackles, no rales, no rhonchi and no wheezes Cardio: Rate: regular rate Rhythm: regular rhythm Heart sounds: S1 normal heart sound present and S2 normal heart sound present Bruits: no carotid bruits Peripheral pulses: Peripheral pulses 2+ throughout GI: Inspection: Yes normal to inspection Skin: Other: Right trans met site healing well Wounds: no wounds Hair: normal Neuro: General: oriented to person, oriented to place and oriented to time Cranial nerves: Yes CN's II-XII intact bilaterally and Yes Normal hearing present Cognition (Neuro): normal cognition Motor exam (neuro): 5/5 motor strength present throughout Extrem: Other: venous exam: No significant superficial varicosities or spider telangiectasias, minimal edema General: No clubbing, No cyanosis and No edema Psych: Appearance: grossly normal Mental Status: mental status grossly normal Speech and movement: Normal speech and movement present Progress Note: A&P Assessment and plan (1) PAD (peripheral artery disease): Status: Acute Assessment and Plan: In short doing well status post transmetatarsal amputation. He does have a little central area of necrosis but I believe it is greater than 80% take of the flap. He is currently being worked up by Nephrology in addition to the medicine team for possible Congestive heart failure. Once medically stable stable from my perspective for transfer to rehab facility. Wound instructions written. Upon discharge see me in a proximally 2 weeks for suture and staple removal. Thank you for allowing me to assist in his care. Time Spent With Patient Time: Total time managing care of this patient today ____ minutes. Procedures Date of Service Date of Service: 06/22/25 Quality Stroke Does the patient have a stroke diagnosis?: No VTE Prior VTE?: No VTE Risk Level:: Medical - moderate - high VTE Device Contraindication: Treatment Not Indicated VTE Drug Contraindication: N/A - Med Ordered
--- NOTE | 2025-06-22 13:16 | P.PNNP_ITS ---
Subjective Subjective Date of Service: 06/22/25 Interval history: s/p Right TMA; All recent data reviewed Physical Exam 2 Vital Signs: Vital Signs: Last Vital Signs Temp 98.2 F 06/22/25 07:21 Pulse 88 06/22/25 07:21 Resp 18 06/22/25 07:21 BP 115/60 06/22/25 07:21 Pulse Ox 93 06/22/25 07:21 O2 Del Method Room Air 06/22/25 07:21 O2 Flow Rate 2 06/18/25 13:18 BMI result Body Mass Index 31.2 Const: General: no acute distress Eyes: EOM: EOMs intact bilaterally Neck: Neck: Yes supple Resp: Auscultation: diminished lung sounds Cardio: Rate: regular rate GI: Palpation (GI): Soft to palpation Neuro: General: moves all extremities Objective Data Labs 06/20/25 11:27 06/20/25 11:27 Labs: Laboratory Results - last 24 hr 06/21/25 06/21/25 06/22/25 16:31 19:38 07:20 POC Glucose 106 120 H 222 H 06/22/25 11:24 POC Glucose 84 Microbiology Microbiology Results: Microbiology 06/14/25 17:44 Blood - Venous Blood Culture - Final No growth after 5 days. 06/14/25 15:57 Blood - Venous Blood Culture - Final No growth after 5 days. 06/14/25 19:58 Foot Right Gram Stain - Final 06/14/25 19:58 Foot Right Routine Culture - Final Escherichia coli Morganella morganii [facility] Procedures Date of Service Date of Service: 06/22/25 Assessment & Plan Assessment and plan (1) CKD stage 3a, GFR 45-59 ml/min: Status: Acute (2) Acute kidney injury superimposed on CKD: Status: Acute Plan Acute kidney injury superimposed on CKD. Underlying CKD 3 most likely due to hypertensive diabetic kidney disease. Superimposed DENIS due to tubular injury. Agree with holding Entresto for the time being No indication for renal replacement( no labs today) C/W rest of current management Shall arrange office F/U when D/Ranjith Progress Note: Quality Stroke Does the patient have a stroke diagnosis?: No
--- NOTE | 2025-06-22 13:22 | PC.NURSE ---
Fent Patch disposed of, Maria Esther Solares RN witnessed.
--- NOTE | 2025-06-22 14:38 | PC.NURSE ---
Pt req to leave MD ROSALIO notified to come see patient.
--- NOTE | 2025-06-22 15:00 | PC.NURSE ---
Refusing Rehab, wants to go home.
--- NOTE | 2025-06-22 15:07 | P.DS_ITS ---
DS: Providers Provider Date of admission: 06/14/25 19:31 Date of discharge: 06/22/25 Primary care physician: Joao Stanford MD Consults: 06/14/25 18:39 Consult to Vascular Surgery Routine Consulting Provider: Viktor Blanca Reason for consultation: osteomyelitis Has provider been notified: Yes 06/14/25 19:41 Consult to Wound Care Routine Consulting Provider: [facility] Wound Care Management Reason for consultation: right foot osteo 06/21/25 11:29 Consult to Nephrology Routine Consulting Provider: [facility] Reason for consultation: DENIS, CKD, hyponatremia DS: Diagnosis Discharge Diagnosis (1) CKD stage 3a, GFR 45-59 ml/min: Status: Inactive (2) Acute kidney injury superimposed on CKD: Status: Resolved DS: Summary Hospital Course Hospital Course: admission hpi Chief Complaint: right foot infection 64-year-old male with past medical history is significant for osteomyelitis, CKD stage 3A, T2 dm, ischemic cardiomyopathy who was sent to hospital from vascular surgery consult earlier today for worsening right foot pain and drainage. Patient states that wound and pain got worse after Thanksgiving, with foul odor. In the ED x-ray showed worsening osteomyelitis. With labs showing WBC 16.7, C- reactive protein 6.6. Per vascular surgery plans on TMA on Wednesday. hospital course: Assessment; 64-year-old male who presented to hospital after being seen earlier today by vascular surgery, with worsening right foot infection with purulent drainage, in the ED x-ray showed progression of osteomyelitis while on IV antibiotics. He underwent Right foot TMA on 06/18 and has done well post operative. Pathology showed clean margin without osteomylitis. Blood cultures have negative, wound culnture before surgery showed e coli and morganella--sens to Cipro, he has been on Meropenem but will change to oral Levaquin for 7 more days given that margin were clean there is no indication for IV antibiotics. Surgery is being doing dressing changes and will follow up with him on outpatient basis. Short term rehab was recommended but in the end he opted for home and therefore will arrange home health services and if not discharged he was leaving AMA, T2 dm with hyperglycemia resume home meds DENIS likely multifactorial in origin, Hyponatremia, acute on crhonic Hyperkalemia, mild monitor Nephro consult for DENIS, low sodium and high K Anemia of chronic disease -continue to monitor and transfuse for hemoglobin less than 7 FEN: LR, replete as needed, diabetic Time Attestation Discharge Coordination Time (in mins): 45 Quality: Safe Use of Opioids Does Pt have an Active Cancer Diagnosis on the Problem List?: No Quality: Stroke Does the patient have a stroke diagnosis?: No Physical Exam Vital Signs: Vital Signs: Last Vital Signs Temp 98.2 F 06/22/25 07:21 Pulse 88 06/22/25 07:21 Resp 18 06/22/25 07:21 BP 115/60 06/22/25 07:21 Pulse Ox 93 06/22/25 07:21 O2 Del Method Room Air 06/22/25 07:21 O2 Flow Rate 2 06/18/25 13:18 BMI result Body Mass Index 31.2 DS: Data Data Completed and Pending Completed studies during hospitalization [Text1]: Pending at discharge 06/18/25 11:27 Surgical [PTH] Routine Procedures Detachment at Right 2nd Toe, Complete, Open Approach (03/22/25) Insertion of Infusion Device into Superior Vena Cava, Percutaneous Approach (06/04/25) Plain Radiography of Aorta and Bilateral Lower Extremity Arteries using Low Osmolar Contrast (03/22/25) Ultrasonography of Superior Vena Cava, Guidance (06/04/25) Labs on day of discharge: Laboratory Results - last 24 hr 06/21/25 06/21/25 06/22/25 16:31 19:38 07:20 POC Glucose 106 120 H 222 H 06/22/25 11:24 POC Glucose 84 Discharge Plan Discharge Anticipated Discharge Date/Time: 06/22/25 14:57 Patient Disposition: Home Health Service Discharge Diagnosis: Diabetic foot ulcer, acute osteomylitis, DENIS on CKD Referrals: Shira ANGELO [Outside] - 1 Week Joao Stanford MD [Primary Care Provider, Internal Medicine] - 1 Week Discharge Medications: New levofloxacin 750 mg Tablet 750 mg PO Q24H Qty: 8 0RF Continued rosuvastatin 40 mg tablet 40 mg PO DAILY 90 Days Qty: 90 3RF Entresto 24-26 mg tablet 1 tab PO BID 90 Days Qty: 180 3RF dapagliflozin propanediol [Farxiga] 10 mg tablet 10 mg PO DAILY 90 Days Qty: 90 3RF omeprazole 40 mg capsule,delayed release(DR/EC) 40 mg PO DAILY@0630 30 Days Qty: 30 3RF Rybelsus 3 mg tablet 3 mg PO DAILY 30 Days Qty: 30 3RF glipizide 5 mg tablet extended release 24hr 5 mg PO DAILY insulin lispro [Humalog KwikPen Insulin] 100 unit/mL insulin pen See Protocol subcut TIDAC Protocol: Insulin Correction Scale Less than or equal to 110 ---- Give (units): 0 111 to 150 Give (units): 0 151 to 200 Give (units): 2 201 to 250 Give (units): 4 251 to 300 Give (units): 6 301 to 350 Give (units): 8 Greater than 350 Give (units): 10 Call MD if Blood Glucose > : 350 clotrimazole 1 % cream 1 appl topical BID PRN (Reason: Rash) (DME) NovoFine Plus 32 gauge x 1/6 needle See Rx Instructions .Route Rx Instructions: As directed (DME) FreeStyle Dori 2 Sensor Kit See Rx Instructions .Route Rx Instructions: As directed metformin 1,000 mg tablet 1,000 mg PO BID (DME) blood pressure monitor Kit See Rx Instructions .ROUTE .MEDSUPPLY Qty: 1 0RF Rx Instructions: Automatic, Digital. Dx: I10. Daily As directed, 999 days/lifetime insulin degludec [Tresiba FlexTouch U-100] 100 unit/mL (3 mL) insulin pen 15 - 20 unit subcut BEDTIME Patient Comments: Patient not sure how many units he last used. metoprolol succinate 25 mg tablet extended release 24 hr 12.5 mg PO DAILY Discontinued daptomycin 500 mg recon soln 700 mg IV Q24H Rx Instructions: administer over 30 mins No Action daptomycin 500 mg recon soln IV gabapentin 300 mg capsule 300 mg PO BEDTIME 30 Days Qty: 30 0RF acetaminophen 500 mg tablet 750 mg PO Q6H PRN (Reason: fever) 30 Days Qty: 180 2RF lidocaine 4 % gel 1 appl topical TID PRN (Reason: pain) 30 Days Qty: 113 3RF trazodone 50 mg tablet 50 mg PO BEDTIME PRN (Reason: sleep) 30 Days Qty: 30 0RF Discharge Orders: Discharge Order (Routine); Ordered 06/22/25 Ordered By: Mikal Dawkins Diet: Advance to usual diet Activity on Discharge: As tolerated Stand Alone Forms: Patient Portal Discharge page Print Language: Nepali Activity Restrictions/Additional Instructions: Wound care upon discharge: xeroform, 4x4 and Kerlix wrap to be changed daily. Please call Dr. Blanca at [phone] for 2 week follow up for suture and staple removal. May heel touch right foot Care Plan Goals: recovery from amputation due to diabetic foot ulcer and osteomyltis Health Concerns: diabetic foot ulcer osteomylitis of the foot Plan of Treatment: Take antibiotics with levaquin as directed fllow up with Dr. Blanca Dressing changes as above Wound care upon discharge: xeroform, 4x4 and Kerlix wrap to be changed daily. Please call Dr. Blanca at [phone] for 2 week follow up for suture and staple removal. May heel touch right foot check BMP in a week Assessment: see above Patient Instructions: Transmetatarsal Amputation (DC), Acute Wounds (DC) Discharge Date/Time: 06/22/25 15:56
--- NOTE | 2025-06-22 15:07 | MHC.CM.PN ---
pt has deceicedd to go home with hvns
--- NOTE | 2025-06-22 15:11 | P.F2F_ITS ---
Service Date Service Date: 06/22/25 Encounter Date of encounter: 06/22/25 Reasons for Services Signs and symptoms assessed: s/p TMA of right foot due to osteomylitis Reason for intermediate: wound care and medication management Homebound: Leaving the home is medically contraindicated at this time without the asist of a device and/or another person due th the listed conditions above and below. Reason homebound: unsteady gait / fall risk, poor balance / fall risk and unable to drive Homebound supporting statement: homebound due to ampuated foot, unsteadiness, need of post operative wound care that he is not able to do and therefore needs the assistance of another person Certification: Based on the above findings, I certify that this patient is confined to the home and needs intermittent intermediate care, physical therapy and/or speech therapy, or continues to need occupational therapy. The patient is under my care, and I have initiated the establishment of the plan of care. The patient will be followed by a physician who will periodically review the plan of care. Time Spent With Patient Time: Total time managing care of this patient today ____ minutes.
--- NOTE | 2025-06-22 15:22 | PC.NURSE ---
PICC Removed by Fabiola KING
[2025-06-22 15:51] VITALS: BP 113/64; PULSE 88; RESP 18; TEMP 36.8; O2SAT 93
--- NOTE | 2025-06-22 16:54 | PC.NURSE ---
Offered to change patient dressing prior to leaving. Small amount of drainage noted on gauze wrap, patient refused dressing change. Brought down stairs in w/c with [employer] AND RECEIVER ALIGNER.
== END 2025-06-22 15:56 | disposition home health service (06) | DRG 475 ==
LOC: HO.ED 18:33 → HO.EDOVER 19:37 → HO.S3 06-15 12:53
PROVIDERS: Physician Assistant; Surgery Vascular Surgery; Admitting Provider Student in an Organized Health Care Education/Training Program; Emergency Provider Emergency Medicine; PCP Family Medicine; Visit Provider Internal Medicine
PROC: 0Y6M0Z4 Detachment at Right Foot, Complete 1st Ray, Open Approach (ICD-10-PCS; CPT 28805; principal; 2025-06-18 11:00)
DX: T87.43 Infection of amputation stump, right lower extremity (principal); E11.52 Type 2 diabetes mellitus with diabetic peripheral angiopathy with gangrene; M86.171 Other acute osteomyelitis, right ankle and foot; N17.9 Acute kidney failure, unspecified; E87.1 Hypo-osmolality and hyponatremia; Y83.5 Amputation of limb(s) as the cause of abnormal reaction of the patient, or of later complication, without mention of misadventure at the time of the procedure; I25.10 Atherosclerotic heart disease of native coronary artery without angina pectoris; F17.210 Nicotine dependence, cigarettes, uncomplicated; Z71.6 Tobacco abuse counseling; N18.31 Chronic kidney disease, stage 3a; E11.22 Type 2 diabetes mellitus with diabetic chronic kidney disease; E11.69 Type 2 diabetes mellitus with other specified complication; B96.20 Unspecified Escherichia coli [E. coli] as the cause of diseases classified elsewhere; E87.5 Hyperkalemia; G89.18 Other acute postprocedural pain; I25.5 Ischemic cardiomyopathy; D63.1 Anemia in chronic kidney disease; Z79.4 Long term (current) use of insulin; Z79.84 Long term (current) use of oral hypoglycemic drugs; Z79.85 Long-term (current) use of injectable non-insulin antidiabetic drugs; Z79.899 Other long term (current) drug therapy
CPT/HCPCS: 36415; 71045; 73630; 80048; 80053; 80202; 81001; 82550; 82565; 82570; 82947; 83605; 84300; 85025; 85027; 85652; 86140; 87040; 87070; 87077; 87186; 87205; 88305; 88307; 88311; 93971; 97162; 97530; 99212; 99285; J1100; J1171; J1644; J2003; J2185; J2250; J2270; J2371; J2405; J2470; J2543; J2704; J2795; J3010; J3373; J3374; J7120

== ENCOUNTER → 2025-06-14 15:36 | Outpatient (BNV) | payer OTHER, SELFPAY | PROVIDERS: PCP Family Medicine; Visit Provider Radiology Diagnostic Radiology | DX: Z03.89 Encounter for observation for other suspected diseases and conditions ruled out (principal) | CPT/HCPCS: 73630 ==

== ENCOUNTER 2025-06-14 19:31 | Outpatient (BNV) | payer OTHER, SELFPAY | END 2025-06-19 15:50 | PROVIDERS: Admitting Provider Student in an Organized Health Care Education/Training Program; Emergency Provider Emergency Medicine; PCP Family Medicine; Visit Provider Radiology Diagnostic Radiology | DX: R60.0 Localized edema (principal) | CPT/HCPCS: 93971 ==

== ENCOUNTER 2025-06-14 19:31 | Outpatient (BNV) | payer OTHER, SELFPAY | END 2025-06-15 08:35 | PROVIDERS: Admitting Provider Student in an Organized Health Care Education/Training Program; Emergency Provider Emergency Medicine; PCP Family Medicine; Visit Provider Radiology Diagnostic Radiology | DX: Z45.2 Encounter for adjustment and management of vascular access device (principal) | CPT/HCPCS: 71045 ==

== ENCOUNTER → 2025-06-14 19:31 | Outpatient (BNV) | payer OTHER, SELFPAY | PROVIDERS: Admitting Provider Student in an Organized Health Care Education/Training Program; Emergency Provider Emergency Medicine; PCP Family Medicine; Visit Provider Internal Medicine Nephrology | DX: N18.31 Chronic kidney disease, stage 3a (principal); N17.9 Acute kidney failure, unspecified; N18.9 Chronic kidney disease, unspecified | CPT/HCPCS: 99232 ==

== ENCOUNTER → 2025-06-14 19:31 | Outpatient (BNV) | payer OTHER, SELFPAY | PROVIDERS: Admitting Provider Student in an Organized Health Care Education/Training Program; Emergency Provider Emergency Medicine; PCP Family Medicine; Visit Provider Surgery Vascular Surgery | DX: I73.9 Peripheral vascular disease, unspecified (principal) | CPT/HCPCS: 99024 ==

== ENCOUNTER → 2025-06-14 19:31 | Outpatient (BNV) | payer OTHER, SELFPAY | PROVIDERS: Admitting Provider Student in an Organized Health Care Education/Training Program; Emergency Provider Emergency Medicine; PCP Family Medicine; Visit Provider Student in an Organized Health Care Education/Training Program | DX: M86.9 Osteomyelitis, unspecified (principal) | CPT/HCPCS: 99232 ==

== ENCOUNTER 2025-06-28 11:28 | Outpatient (AMB) | payer OTHER, SELFPAY ==
--- NOTE | 2025-06-28 11:35 | A.OFFPC_ITS ---
Vital Signs 06/28/25 11:38 Height 5 ft 10 in BMI Reason not done Patient refused/unable BP 110/53 L Blood Pressure Location Rt brachial Position Sitting Respiration 13 Pulse 79 Pulse Source Pulse Oximeter Temp 97.8 F Temp Source Oral Pulse Oximetry (%) 93 Oxygen Delivery Method Room Air Intake Visit Reasons: hdfu/c Intake Note: HDFU from [facility] Flooring Helper Required: No Allergies No Known Allergies Allergy (Verified 06/28/25 11:35) Medication List - Last Reconciled 06/28/25 by Joao Stanford MD blood pressure monitor Automatic, Digital. Dx: I10. Daily As directed, 999 days/lifetime clotrimazole 1% 1 appl topical BID PRN dapagliflozin propanediol (Farxiga) 10 mg PO DAILY 90 days daptomycin mg IV flash glucose sensor (FreeStyle Dori 2 Sensor kit) As directed glipizide ER 5 mg PO DAILY insulin degludec (Tresiba FlexTouch U-100 insulin) 15 - 20 units subcut BEDTIME insulin lispro (Humalog KwikPen (U-100) Insulin) See Protocol units subcut TIDAC levofloxacin 750 mg PO Q24H metformin 1,000 mg PO BID metoprolol succinate ER 12.5 mg PO DAILY omeprazole 40 mg PO DAILY@0630 30 days oxycodone 5 mg PO Q8H PRN pen needle, diabetic (NovoFine Plus) As directed rosuvastatin 40 mg PO DAILY 90 days sacubitril-valsartan 24-26 mg (Entresto) 1 tab PO BID 90 days semaglutide (Rybelsus) 3 mg PO DAILY 30 days trazodone 100 mg PO BEDTIME Tobacco use date assessed: 06/28/25 Fall risk assessment: No Falls in past year Last assessed Fall Risk: 06/28/25 Dental Screening Dental Screen Date: 06/28/25 Did you have a dental visit in the last 12 months?: Yes Did you have a dental problem in the last 6 months where you did not have access to dental care?: No Was dental information given to patient?: Patient has dentist HPI hdfu/[facility] HPI Details 64-year-old male with past medical histo ry significant for osteomyelitis, CKD stage 3A, DM2 & ischemic cardiomyopathy who was sent to hospital 06/14/25 from vascular surgery consult for worsening right foot pain and drainage. Patient said that wound and pain had gotten worse after Thanksgi ving, with foul odor. In the ED x-ray showed worsening osteomyelitis, with labs showing WBC 16.7, C-reactive protein 6.6. Xrays had shown worsening Osteomyelitis despite IV ABX and plan was made for R TMA. Also had some DENIS on CKD. Right foot TMA was performed on 06/18/25 which he tolerated well - Pathology showed clean margin without osteomylitis so there was no further need for IV ABX and he was transitioned to Levaquin x 7 more days. Per Discharge note Short term rehab was recommended but in the end he opted for home and therefore will arrange home health services and if not discharged he was leaving AMA. Dressing care was to be arranged as outpatient by surgery f/u. DM Home meds were resumed. Recommended f/u w/ Dr Rianna Sterling appt 07/11/25 F/u w/ Nephrology F/u w/ Wound care [facility] Medical History (Updated 06/30/25 @ 00:01 by Hector Quigley) CKD stage 3a, GFR 45-59 ml/min Diabetic osteomyelitis Osteomyelitis Hypertension Diabetes PAD (peripheral artery disease) Ischemic cardiomyopathy Diabetic ulcer of right foot Osteomyelitis of second toe of right foot Back pain Smoker Insomnia Amputated toe of left foot Anemia Low testosterone Hyperlipidemia Carotid atherosclerosis Erectile dysfunction associated with type 2 diabetes mellitus Lumbar degenerative disc disease Gall bladder disease Finding of floating rib Spine disorder Pacemaker Stroke Diabetes 1.5, managed as type 2 Surgical History (Updated 06/28/25 @ 12:05 by Joao Stanford MD) History of surgery History of surgery History of appendectomy Social History Household Members: Other Household Members Other:: roomate Both parents involved: No Caregiver staying overnight: No Housing: House Are you a primary career representative to a significant other at home: No Do you presently have visiting nurse or other home services: Yes (2x week) 75 years or older and lives alone: No Alcohol intake: current Alcohol intake frequency: does not drink Alcohol type: other Comment: refusing fall interventions. Patient Tobacco Use Status: Current everyday Tobacco user Tobacco use type: Cigarette Cigarette Packs Per Day: 0.75 Cigarettes Per Day: 15.0 Years Smoked: 45 e-Cigarette/Vaping Use: Never Used Second Hand Smoke Exposure: No Substance Use Type: Marijuana Special yamilex needs: No service: No Current occupational status: retired Current occupational exposures/hazards: No Cognitive needs: No Hearing needs: No Vision needs: No Questionnaire Thrive Questionnaire Date Thrive assessed: 06/15/25 I am a: Patient What is your living situation today?: I choose not to answer this question Within the past 12 months, did the food you bought not last and you didn't have the money to get more?: I choose not to answer this question Within the past 12 months, did you worry whether your food would run out before you got money to buy more?: I choose not to answer this question Do you have trouble paying for medicines?: I choose not to answer this question Do you have trouble getting transportation to medical appointments?: I choose not to answer this question Do you have trouble paying your heating and electricity bill?: I choose not to answer this question Do you have trouble taking care of your child, family member or friend?: I cho ose not to answer this question Do you have trouble with day-to-day activities such as bathing, preparing meals, shopping, managing finances, etc.?: I choose not to answer this question Are you currently unemployed and looking for a job?: I choose not to answer this question Are you interested in more education?: I choose not to answer this question Please select the resources that you would like help with: None Currently or been in a relationship where the following occur: I choose not to answer THRIVE Score: 0 BELTRAN-7 AMB Questionnaire BELTRAN-7 Date BELTRAN - 7 assessed: 11/24/23 Source: Developed by Drs. Mega Teresa, Berenice Hardin, Rory Hewitt and colleagues, with an educational claudine from [employer]. Physical exam (Primary Care) Vital Signs: Last Vital Signs Temp 97.8 F 06/28/25 11:38 Pulse 79 06/28/25 11:38 Resp 13 06/28/25 11:38 BP 110/53 L 06/28/25 11:38 Pulse Ox 93 06/28/25 11:38 Oxygen Delivery Method Room Air 06/28/25 11:38 Tobacco/Smoking Status: Tobacco use Status Tobacco use date assessed 06/28/25 06/28/25 11:39 Patient Tobacco Use Status Current everyday Tobacco 06/28/25 11:37 Tobacco use type Cigarette 06/28/25 11:37 e-Cigarette/Vaping Use Never Used 06/28/25 11:37 Thrive Assessment: Date of Thrive Assessment Date Thrive assessed 06/15/25 06/28/25 11:37 Currently or been in a relationship where the following occur: I choose not to answer Coding Level of Care Code TCM High MDM <= 14 days Diagnoses Status post transmetatarsal amputation of right foot Z89.431 Diabetes E11.9 Wheelchair dependent Z99.3 Osteomyelitis M86.9 Laterality: right Osteomyelitis location: foot Osteomyelitis type: unspecified type CKD stage 3a, GFR 45-59 ml/min N18.31 S/P transmetatarsal amputation of foot Z89.439 Diabetic neuropathy E11.40 Assessment & Plan Assessment & Plan (1) Status post transmetatarsal amputation of right foot: Code(s): Z89.431 - Acquired absence of right foot Category: Surgical (2) Diabetes: Code(s): E11.9 - Type 2 diabetes mellitus without complications Category: Medical (3) Wheelchair dependent: Code(s): Z99.3 - Dependence on wheelchair Category: Medical (4) Osteomyelitis: Code(s): M86.9 - Osteomyelitis, unspecified Category: Medical Qualifiers: Laterality: right Osteomyelitis location: foot Osteomyelitis type: unspecified type Qualified Code(s): M86.9 - Osteomyelitis, unspecified (5) CKD stage 3a, GFR 45-59 ml/min: Code(s): N18.31 - Chronic kidney disease, stage 3a Category: Medical (6) S/P transmetatarsal amputation of foot: Code(s): Z89.439 - Acquired absence of unspecified foot Category: Surgical (7) Diabetic neuropathy: Code(s): E11.40 - Type 2 diabetes mellitus with diabetic neuropathy, unspecified Category: Medical Plan 64-year-old male with past medical history significant for osteomyelitis, CKD stage 3A, DM2 & ischemic cardiomyopathy who was sent to hospital 06/14/25 from vascular surgery consult for worsening right foot pain and drainage. Patient said that wound and pain had gotten worse after Thanksgiving, with foul odor. In the ED x-ray showed worsening osteomyelitis, with labs showing WBC 16.7, C- reactive protein 6.6. Xrays had shown worsening Osteomyelitis despite IV ABX and plan was made for R TMA. Also had some DENIS on CKD. Right foot TMA was performed on 06/18/25 which he tolerated well - Pathology showed clean margin without osteomylitis so there was no further need for IV ABX and he was transitioned to Levaquin x 7 more days. Per Discharge note Short term rehab was recommended but in the end he opted fo r home and therefore will arrange home health services and if not discharged he was leaving AMA. Dressing care was to be arranged as outpatient by surgery f/u. DM Home meds were resumed. Recommended f/u w/ Dr Blanca - Has appt 07/11/25 F/u w/ Nephrology F/u w/ Wound care Patient unaware or disinterested in the medications that he is taking. Needs a visiting nurse to help manage his medications. Patient wants to consider moving to an assisted living situation. Currently living in an apartment with little support. Asking the nurse navigator to evaluate for services. Referring physical therapy for help managing medications, physical therapy, ongoing wound care and dressing changes, hygiene. Has had oxycodone in the past for temporary pain. Patient says he has been out of this medication and drove himself to the office today. I do not recommend he use opioid level pain medications currently though this may be an option in the future. He can try some gabapentin for discomfort while sleeping which is his main complaint. Can also use Tylenol-do not exceed recommended doses. Has some diabetic neuropathy and will give him a script for lidocaine gel. Ice and heat Orders: Referrals [facility] Referral I10 - Essential (primary) hypertension, I63.9 - Cerebral infarction, unspecified, I73.9 - Peripheral vascular disease, unspecified, N18.31 - Chronic kidney disease, stage 3a, Z89.431 - Acquired absence of right foot, Z99.3 - Dependence on wheelchair Nurse Navigator Referral E11.9 - Type 2 diabetes mellitus without complications, I10 - Essential (primary) hypertension, I63.9 - Cerebral infarction, unspecified, I73.9 - Peripheral vascular disease, unspecified, N18.31 - Chronic kidney disease, stage 3a, Z89.431 - Acquired absence of right foot, Z99.3 - Dependence on wheelchair Medications: New lidocaine 4% 1 appl topical TID PRN 113 grams 3RF pain 30 days E11.40 - Type 2 diabetes mellitus with diabetic neuropathy, unspecified trazodone 50 mg PO BEDTIME PRN 30 tabs 0RF sleep 30 days gabapentin 300 mg PO BEDTIME 30 caps 0RF 30 days acetaminophen 750 mg (1.5 x 500 mg) PO Q6H PRN 180 tabs 2RF fever 30 days
[2025-06-28 11:38] VITALS: BP 110/53; PULSE 79; RESP 13; TEMP 36.6; O2SAT 93
--- OUTSIDE RECORDS SUMMARY | 2025-06-28 15:04 | XMS_ITS | Patient Health Record ---
Author Organization [employer] [facility] Address [address] [facility] [address] [place] [address] Care Team Providers Care Yard Warehouse Worker Name Role Phone José Frazier Primary Care Provider Unavailab Hernadez JAYLA Unavailable [phone] Allergies No Known Allergies Reason For Referral [...] 1MG PER DOSE (1X4MG PEN) *Reorder from [employer] for eRx and Interaction Alerts* Unknown ZTlido [...] W/U Status Risk Notes Problem Lumbar radiculopathy (437057635) Lumbar radiculopathy (M54.16) Active confirmed Problem Lumbosacral spondylosis without myelopathy (01463362) Other spondylosis, lumbar region (M47.896) Active confirmed Problem Lumbosacral spondylosis without myelopathy (27325762) Other spondylosis, lumbosacral region (M47.897) Active confirmed Problem Spinal stenosis of lumbar region (76553366) Spinal stenosis, lumbosacral region (M48.07) Active confirmed Problem Disorder of lumbar disc (043400522) Other intervertebral disc disorders, lumbar region (M51.86) Active confirmed Problem Disorder of lumbosacral intervertebral disc (379541151) Other intervertebral disc disorders, lumbosacral region (M51.87) Active confirmed Problem Spasm of back muscles (036968162) Muscle spasm of back (M62.830) Active confirmed Problem Spasm (07982127) Other muscle spasm (M62.838) Active confirmed Problem Muscle pain (68332816) Myalgia, other site (M79.18) Active confirmed Problem Low back pain (362602230) Low back pain, unspecified (M54.50) Active confirmed Problem Lumbosacral spondylosis without myelopathy (42750839) Spondylosis w/o myelopathy or radiculopathy, lumbar region (M47.816) Active confirmed Problem Lumbosacral spondylosis without myelopathy (78981965) Spondyls w/o myelopathy or radiculopathy, lumbosacr region (M47.817) Active confirmed Plan Of Treatment Pending Test Test Name Order Date [id number] Lumbar/Caudal WILFRID 05/04/2022 Future Test Test Name Order Date [id number] Lumbar/Caudal WILFRID 08/05/2022 Insurance Providers Payer Name Payer Address Payer Phone Subscriber Number Group Number Insured Name Patient Relationship to Insured Coverage Start Date Coverage End Date [facility] DUAL COMP [employer] HMO [address] [address] [place] [address] [id number] Florentin Begum Self - patient is the insured 3 LAB -[facility] [place] [address] [address] [place], [place] [id number] Florentin Ni Self - patient is the insured 3 Medical (General) History Medical History History ICD Code diabetes stroke Surgical History Surgery Date(Month/Year) Appendectomy
--- OUTSIDE RECORDS SUMMARY | 2025-06-28 15:04 | XMS_ITS | Continuity of Care Document ---
Author Organization [facility] [address] [facility] [address] [place] [address] Phone [phone] Problems Active Problems Provider Date Type 2 [...] e11.9 6units E11.9 Sarah Li NP 06/05/2025 Zrqjmpga7se/0.5ML Solution Auto-Inject inject 5 mg subcutaneously once weekly 2ml Sarah Li NP 11/15/2024 Pen Flqofql68Q X 4 mm Misc use one needle with insulin tacos, use three times a day 100units Mona Muhammad M.D. 08/16/2024 Freestyle Dori 2/[place]/Flash Glucose Monitoring Taoqen6Zxxdeb Device use as directed with sensors 1units E11.9 Mona Muhammad M.D. 09/20/2023 Ztlido1.8% Patches 1 patch daily Unknown Aspirin 8181mg Tablets DR 1 by mouth every day Unknown /0 000 Ketoconazole2% Cream Unknown Accu-Chek GuideStrips Unknown Xxuswug54in Tablets Take 1 tablet by mouth daily 90tabs Mona Muhammad M.D. Tresiba Tfoxjaevo047Woji/ML Solution Pen-Inject Administer 30 Units Under The Skin Daily 30units E11.21 Mona Muhammad M.D. Xkmodjnicq00sx Capsules DR Take 1 capsule by mouth daily 90caps Mona Muhammad M.D. Metformin IFG0204yn Tablets Take 1 Tablet By Mouth Twice Daily 180tabs Sarah Li, HEATER OPERATOR Accu-Chek GuideStrips Unknown Rosuvastatin Xbrwejz56wn Tablets Take 1 tablet by mouth daily Unknown Losartan Xbbawwfpd12nu Tablets Take 1 tablet by mouth daily Unknown Trazodone ZJU177dm Tablets Take 1 tablet by mouth at [...] 09/17/2023 Inhouse Hemoglobin A1c 8.2% 1 Test(s) 030178-Skbso terone was developed and its performance characteristics determined by [facility]. It has not been cleared or approved by the Food and Drug Administration. Test(s) 595529-Ywujo Activity, Plasma was developed and its performance characteristics determined by [facility]. It has not been cleared or approved by the Food and Drug Administration. 2 Normal: 0 - 29 Moderately increased: 30 - 300 Severely increased: >300 Procedures Date Code Description Status 12/29/2023 19452 Glucose Monitoring Interpeta tion And Report Completed [...] unspecified Sarah Li NP Plan of Treatment No Information Available Functional Status Description No Information Available Mental Status Description No Information Available Referrals Refer to Reason for Referral Status Appt Oleg Lisa Zuniga DPM [facility] Closed [address] [place] [address] [phone]
--- OUTSIDE RECORDS SUMMARY | 2025-06-28 15:05 | XMS_ITS | Patient Health Record ---
Author Organization [facility] Address [address] [place] [address] Care Team Providers Care Leg Man Name Role Phone José Frazier MD Primary Care Provider Luis Pan Unavailable [phone] Allergies No Known Allergies Reason For Referral No Information Medications Medication SIG (Take, Route, Frequency, Duration) Notes Start Date End Date Status Omeprazole 40 MG 1 capsule 30 minutes before morning meal Orally Once a day; Duration: 90 days Active Tresiba FlexTouch 100 UNIT/ML inject 30 units Subcutaneous daily; Duration: 100 days Active Pen [place] 32G X 6 MM use with insulin [...] Status W/U Status Risk Notes Problem Hypercalcemia (90720191) Hypercalcemia (E83.52) Active confirmed Problem 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 mellitus (793362438) Type 2 diabetes mellitus with other diabetic neurological complication (E11.49) Active confirmed Problem Vitamin D deficiency (11571651) Vitamin D deficiency (E55.9) Active confirmed Problem Dyslipidemia (267639631) Dyslipidemia (E78.5) Active confirmed Problem Hyperglycemia due to type 2 diabetes mellitus (227657173318620) Type 2 diabetes mellitus with hyperglycemia (E11.65) Active confirmed Problem Essential hypertension (11270486) Essential (primary) hypertension (I10) Active confirmed Problem 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 [employer] [facility] [address] [address] [place] [address] [id number] [employer] Florentin Ni Self - patient is the insured Medical (General) History Medical History History ICD Code Diabetes HTN Hyperlipidemia GERD Surgical History Surgery Date(Month/Year) Screws right ankle Toe amputation left foot Appendectomy 06/2020 Hospitalization History Reason Date(Month/Year) Appendectomy 06/2020
== END 2025-06-28 12:29 | disposition home or self-care (01) ==
LOC: HO.HMCFM 11:28
PROVIDERS: PCP Family Medicine; Visit Provider Family Medicine
DX: M86.071 Acute hematogenous osteomyelitis, right ankle and foot (principal); E11.40 Type 2 diabetes mellitus with diabetic neuropathy, unspecified; N18.31 Chronic kidney disease, stage 3a; Z89.431 Acquired absence of right foot; Z99.3 Dependence on wheelchair

== ENCOUNTER → 2025-06-28 11:28 | Outpatient (BNVA) | payer OTHER, SELFPAY | PROVIDERS: PCP Family Medicine; Visit Provider Family Medicine | DX: Z09 Encounter for follow-up examination after completed treatment for conditions other than malignant neoplasm (principal); Z89.431 Acquired absence of right foot; Z99.3 Dependence on wheelchair; M86.9 Osteomyelitis, unspecified; N18.31 Chronic kidney disease, stage 3a; E11.40 Type 2 diabetes mellitus with diabetic neuropathy, unspecified; I10 Essential (primary) hypertension | CPT/HCPCS: 99495 ==